=== PATIENT | female | born 1965 | race Two or more races ===

== ENCOUNTER 2019-12-25 10:06 | Outpatient (REF) | payer MEDICAID, SELFPAY | END 2019-12-25 10:07 | disposition home or self-care (01) | LOC: HO.LAB 10:06 | PROVIDERS: PCP Internal Medicine; Visit Provider Internal Medicine | DX: Z20.828 Contact with and (suspected) exposure to other viral communicable diseases (principal) | CPT/HCPCS: C9803; U0003 ==

== ENCOUNTER 2020-01-06 14:27 | Outpatient (REF) | payer MEDICAID, SELFPAY ==
--- NOTE | 2020-01-06 14:34 | MM_ITS ---
EXAMINATION: MM SCREENING DIGITAL BREAST TOMOSYNTHESIS, BILATERAL CLINICAL INFORMATION: Screening. Asymptomatic. The lifetime risk of breast cancer based on the Tyrer-Cuzick Model is 12%. COMPARISON: Mammography: 12/13/2018, 11/14/2017, 10/20/2016, 12/30/2014 TECHNIQUE: Digital breast tomosynthesis is performed in both the craniocaudal and mediolateral oblique views along with computer-aided detection (CAD). Synthesized 2D images are generated from the tomosynthesis. FINDINGS: There are scattered areas of fibroglandular density (ACR BI-RADS breast composition Category b). There are no significant masses, abnormal calcifications, or other abnormalities. There is chronic nodular asymmetry mid outer right breast on CC view similar to prior exams and decreased since 2015. No significant changes. MM/MM tomosynthesis screening BI IMPRESSION: No mammographic evidence of malignancy. ASSESSMENT: BI-RADS 2: Benign RECOMMENDATION: Routine annual mammography screening. This patient's information was entered into a reminder system with a target due date for their next mammogram.
== END 2020-01-06 14:28 | disposition home or self-care (01) ==
LOC: HO.MAMMO 14:27
PROVIDERS: PCP Internal Medicine; Visit Provider Internal Medicine
DX: Z12.31 Encounter for screening mammogram for malignant neoplasm of breast (principal)
CPT/HCPCS: 77063; 77067

== ENCOUNTER 2020-01-21 10:47 | Outpatient (REF) | payer MEDICAID, SELFPAY | END 2020-01-21 10:48 | disposition home or self-care (01) | LOC: HO.LAB 10:47 | PROVIDERS: Visit Provider Internal Medicine | DX: Z20.828 Contact with and (suspected) exposure to other viral communicable diseases (principal) | CPT/HCPCS: C9803; U0003 ==

== ENCOUNTER → 2020-01-29 09:29 | Outpatient (BNVA) | payer MEDICAID, SELFPAY | PROVIDERS: PCP Internal Medicine; Visit Provider Nurse Practitioner | DX: Z76.89 Persons encountering health services in other specified circumstances (principal) ==

== ENCOUNTER → 2020-02-05 15:24 | Outpatient (BNVA) | payer MEDICAID, SELFPAY | PROVIDERS: PCP Internal Medicine; Visit Provider Nurse Practitioner | DX: Z76.89 Persons encountering health services in other specified circumstances (principal) ==

== ENCOUNTER → 2020-03-02 15:07 | Outpatient (BNVA) | payer MEDICAID, SELFPAY | PROVIDERS: PCP Internal Medicine; Visit Provider Nurse Practitioner ==

== ENCOUNTER 2020-05-11 10:03 | Outpatient (REF) | payer MEDICAID, SELFPAY ==
--- NOTE | ~2020-05-11 | XR_ITS ---
EXAMINATION: XR FOOT, RIGHT CLINICAL INFORMATION: Right foot pain. COMPARISON: None TECHNIQUE: AP, lateral, and oblique views of the right foot. FINDINGS: There is no evidence of acute fracture or dislocation of the right foot. There is some irregularity about the superior aspect of the navicular which appears chronic. There are plantar and Achilles calcaneal spurs present. Joint spaces are maintained. XR/XR foot RT min 3V IMPRESSION: Achilles and plantar calcaneal spurs.
== END 2020-05-11 10:04 | disposition home or self-care (01) ==
LOC: HO.XRAY 10:03
PROVIDERS: PCP Internal Medicine; Visit Provider Nurse Practitioner Family
DX: M79.671 Pain in right foot (principal)
CPT/HCPCS: 73630

== ENCOUNTER → 2020-08-30 13:03 | Outpatient (BNVA) | payer MEDICAID, SELFPAY | PROVIDERS: PCP Internal Medicine; Referring Provider Internal Medicine; Visit Provider Nurse Practitioner | DX: K59.04 Chronic idiopathic constipation (principal); K21.9 Gastro-esophageal reflux disease without esophagitis; R10.9 Unspecified abdominal pain; R10.13 Epigastric pain; R10.30 Lower abdominal pain, unspecified | CPT/HCPCS: 99212 ==

== ENCOUNTER 2020-09-01 09:21 | Outpatient (REF) | payer MEDICAID, SELFPAY ==
--- NOTE | ~2020-09-01 | XR_ITS ---
EXAMINATION: XR ABDOMEN WITH DECUBITUS VIEWS CLINICAL INDICATION: Chronic idiopathic constipation. COMPARISON: Most recent abdominal radiographs dated 01/08/2017. TECHNIQUE: Upright and supine views of the abdomen. FINDINGS: Nonobstructive bowel gas pattern. Mild air and stool throughout the colon. No abnormal soft tissue calcification. No acute osseous abnormality. XR/XR abdomen w decubitus IMPRESSION: Nonobstructive bowel gas pattern. Mild air and stool throughout the colon.
[2020-09-01 11:07] LABS: TSH reflex Free T4 1.58 uIU/mL (0.32-4.0)
[2020-09-07 13:56] LABS: Transglutaminase Ab IgG 3 U/mL; Transglutaminase IgA 1 U/mL
[2020-09-07 20:56] LABS: Gliadin Deamidated IgA Ab 6 Units; Gliadin Deamidated IgG Ab 2 Units
== END 2020-09-01 09:22 | disposition home or self-care (01) ==
LOC: HO.LAB 09:21
PROVIDERS: PCP Internal Medicine; Visit Provider Nurse Practitioner
DX: R10.30 Lower abdominal pain, unspecified (principal); K59.04 Chronic idiopathic constipation
CPT/HCPCS: 36415; 74021; 83516; 84443

== ENCOUNTER → 2020-10-01 08:13 | Outpatient (BNVA) | payer MEDICAID, SELFPAY | PROVIDERS: Visit Provider Nurse Practitioner ==

== ENCOUNTER 2020-11-01 17:20 | Emergency (ER) | payer MEDICAID, SELFPAY | END 2020-11-01 20:30 | disposition left against medical advice (07) | PROVIDERS: Emergency Provider Emergency Medicine | DX: G43.909 Migraine, unspecified, not intractable, without status migrainosus (principal) ==

== ENCOUNTER → 2020-11-12 08:32 | Outpatient (BNVA) | payer MEDICAID, SELFPAY | PROVIDERS: Visit Provider Nurse Practitioner ==

== ENCOUNTER → 2021-01-04 10:06 | Outpatient (BNVA) | payer MEDICAID, SELFPAY | PROVIDERS: PCP Internal Medicine; Visit Provider Nurse Practitioner ==

== ENCOUNTER → 2021-01-11 08:11 | Outpatient (BNVA) | payer MEDICAID, SELFPAY | PROVIDERS: PCP Internal Medicine; Referring Provider Internal Medicine; Visit Provider Physician Assistant ==

== ENCOUNTER 2021-01-26 12:31 | Outpatient (REF) | payer MEDICAID, SELFPAY ==
--- NOTE | ~2021-01-26 | MM_ITS ---
EXAMINATION: MM SCREENING DIGITAL BREAST TOMOSYNTHESIS, BILATERAL CLINICAL INFORMATION: Screening. Asymptomatic. The lifetime risk of breast cancer based on the Tyrer-Cuzick Model is 12.6%. COMPARISON: Mammography: January 06, 2020 and studies dating back to June 09, 2013 TECHNIQUE: Digital breast tomosynthesis is performed in both the craniocaudal and mediolateral oblique views along with computer-aided detection (CAD). Synthesized 2D images are generated from the tomosynthesis. FINDINGS: There are scattered areas of fibroglandular density (ACR BI-RADS breast composition Category b). There are no new significant masses, abnormal calcifications, or other abnormalities. Asymmetric density about the mid superior aspect of the right breast again evident and is stable. MM/MM tomosynthesis screening BI IMPRESSION: There are no significant changes from prior study. ASSESSMENT: BI-RADS 2: Benign RECOMMENDATION: Routine annual mammography screening. This patient's information was entered into a reminder system with a target due date for their next mammogram.
== END 2021-01-26 12:32 | disposition home or self-care (01) ==
LOC: HO.MAMMO 12:31
PROVIDERS: Visit Provider Internal Medicine
DX: Z12.31 Encounter for screening mammogram for malignant neoplasm of breast (principal)
CPT/HCPCS: 77063; 77067

== ENCOUNTER 2021-08-24 11:27 | Outpatient (REF) | payer MEDICAID, SELFPAY ==
[2021-08-24 13:22] LABS: Blood Urea Nitrogen 13 mg/dL (9-16); Estimated Glomerular Filt Rate > 60
== END 2021-08-24 11:28 | disposition home or self-care (01) ==
LOC: HO.LAB 11:27
PROVIDERS: PCP Internal Medicine; Visit Provider Advanced Practice Midwife
DX: R19.00 Intra-abdominal and pelvic swelling, mass and lump, unspecified site (principal)
CPT/HCPCS: 36415; 82565; 84520

== ENCOUNTER 2021-08-31 09:17 | Outpatient (REF) | payer MEDICAID, SELFPAY ==
[2021-08-31 10:25] LABS: Blood Urea Nitrogen 10 mg/dL (9-16); Estimated Glomerular Filt Rate > 60
== END 2021-08-31 09:18 | disposition home or self-care (01) ==
LOC: HO.LAB 09:17
PROVIDERS: PCP Internal Medicine; Visit Provider Advanced Practice Midwife
DX: Z01.812 Encounter for preprocedural laboratory examination (principal); R51.9 Headache, unspecified
CPT/HCPCS: 36415; 82565; 84520

== ENCOUNTER 2021-09-15 09:39 | Outpatient (REF) | payer MEDICAID, SELFPAY ==
--- NOTE | ~2021-09-15 | CT_ITS ---
EXAMINATION: CT ABDOMEN AND PELVIS WITH CONTRAST CLINICAL INFORMATION: Intra-abdominal and pelvic swelling, mass or lump. COMPARISON: Portions of a previous CT 04/29/13 TECHNIQUE: Multidetector volumetric images were obtained from the superior aspect of the liver through the pubic symphysis following administration 85 mL of Omnipaque 350 intravenous contrast. Sagittal and coronal reformatted images were obtained on the technologist's workstation. Oral contrast: Yes This CT examination was performed using dose optimization techniques as appropriate, variously including the following: *Automated exposure control *Adjustment of mA and/or kV according to patient size (this includes techniques or standardized protocols for targeted exams where dose is matched to indication/reason for exam; i.e. extremities or head) *Use of iterative reconstruction technique DLP: 632 mGy-cm FINDINGS: LUNG BASES: No suspicious abnormality in the visualized lower chest. There could be a trace sliding-type hiatal hernia. LIVER, GALLBLADDER, AND BILIARY TREE: The liver contour is smooth. No suspicious focal lesion. The gallbladder is contracted. There is no significant biliary dilation. PANCREAS: No suspicious abnormality. SPLEEN: Within normal limits ADRENAL GLANDS: Normal KIDNEYS AND URETERS: There is no dilation of the urinary collecting system on either side. There is a 1.4 cm circumscribed fluid attenuating mass in the periphery of the mid left kidney likely a cyst. This does not require any further evaluation. BLADDER: The bladder is not well-distended. No definite abnormality. Some stranding between the sigmoid colon and the bladder is nonspecific. GASTROINTESTINAL TRACT: The distal colon is thickened and slightly hyperenhancing. There is a focal area of eccentric thickening involving the sigmoid colon (series 7, image 45). There is some minor pericolonic fat stranding in this area and there are a few nonspecific mesenteric lymph nodes. There are sigmoid diverticula. Contrast is present within the proximal colon. The appendix is normal. No significant small bowel dilation. No suspicious abnormality of the stomach. ABDOMINAL WALL: No significant hernia is appreciated. LYMPH NODES: Scattered retroperitoneal and mesenteric lymph nodes are nonspecific. VASCULAR: There is no abdominal aortic aneurysm. The portal vein enhances. There is a normal variant retroaortic left renal vein. There is some dilation of the renal aspect of the main left renal vein as it traverses posterior to the aorta. There are prominent mesenteric vessels associated with the sigmoid colon. PELVIC VISCERA: I suspect previous hysterectomy. No suspicious adnexal mass or collection. OSSEOUS STRUCTURES: No suspicious focal lesion. There is some degenerative change in the lumbar spine CT/CT abdomen pelvis w con IMPRESSION: Abnormal distal colon with wall thickening and luminal narrowing and some pericolonic fat stranding with prominent sigmoid mesenteric vessels and some adjacent nonspecific mesenteric lymph nodes. There are sigmoid diverticula. The pattern could reflect mild diverticulitis without evidence of bowel obstruction or extraluminal gas but is not entirely specific. Other causes of distal colitis cannot be entirely excluded. Fleischner guidelines were followed.
[2021-09-15] MEDS: iohexoL 350 MG/ML 100 ML INFUS..BTL 85 ML IV (12:03)
== END 2021-09-15 09:40 | disposition home or self-care (01) ==
LOC: HO.CT 09:39
PROVIDERS: PCP Internal Medicine; Visit Provider Advanced Practice Midwife
DX: R19.00 Intra-abdominal and pelvic swelling, mass and lump, unspecified site (principal); R10.2 Pelvic and perineal pain; K57.30 Diverticulosis of large intestine without perforation or abscess without bleeding
CPT/HCPCS: 74177; Q9967

== ENCOUNTER → 2021-09-27 15:27 | Outpatient (BNVA) | payer MEDICAID, SELFPAY | PROVIDERS: PCP Internal Medicine; Visit Provider Advanced Practice Midwife | DX: Z71.2 Person consulting for explanation of examination or test findings (principal); R10.9 Unspecified abdominal pain | CPT/HCPCS: 99212 ==

== ENCOUNTER 2021-11-25 19:55 | Outpatient (REF) | payer MEDICAID, SELFPAY ==
--- NOTE | ~2021-11-25 | MR_ITS ---
EXAMINATION: MRI OF THE BRAIN WITHOUT CONTRAST CLINICAL INFORMATION: 56-year-old with headache. COMPARISON: 11/06/2017 MRI. TECHNIQUE: Multiplanar multisequence MR imaging of the brain was done without IV contrast. FINDINGS: BRAIN VOLUME: Within normal limits within the limitations of qualitative assessment. STRUCTURAL: Partially empty sella, which is a unchanged. BRAIN AND MENINGES: DWI sequence demonstrates no restricted diffusion to suggest acute or subacute cerebral ischemia. Gradient refocused imaging demonstrates no abnormal magnetic susceptibility artifact to suggest hemorrhage, hemosiderin staining or abnormal mineralization. Redemonstrated are numerous T2 hyperintense white matter lesions scattered throughout the subcortical and deeper white matter of both cerebral hemispheres, a few of which appear slightly more prominent on the current study bilaterally. The findings are nonspecific and could reflect chronic ischemic microangiopathy and/or migraine-associated vasculopathy with the appropriate clinical history. Other etiologies such as other forms of vasculopathy and vasculitis are not excluded. Remainder of the brain is normal in signal intensity. No extra-axial fluid collections, space-occupying process or mass effect are identified. Redemonstrated are bilateral petrous apex cephaloceles and subarachnoid granulations in the right sphenoid wing similar to the previous exam. VENTRICLES AND SUBARACHNOID SPACES: The ventricular system and subarachnoid spaces are within normal limits without hydrocephalus stable in appearance. ORBITAL STRUCTURES: Previously noted mildly prominent CSF within the optic nerve sheaths bilaterally is again noted on current study but there is no definite protrusion of the optic discs despite slight flattening of the posterior wall of the right scleral margin. In conjunction with the other findings, idiopathic intracranial hypertension would be a consideration but cannot be confirmed with any degree of certainty. VASCULAR: Signal voids are noted in the visualized major intracranial vessels. OSSEOUS STRUCTURES, SINUSES/MASTOIDS, EXTRACRANIAL SOFT TISSUES: Unremarkable. MR/MR head/brain wo con IMPRESSION: 1. Moderately extensive T2 hyperintense white matter lesions in both cerebral hemispheres, a few of which appear slightly more prominent on current study with an otherwise grossly stable appearance. Differential diagnostic considerations include chronic ischemic microangiopathy, migraine-associated vasculopathy, other forms of vasculopathy and vasculitis. 2. No evidence for infarction, hemorrhage, extra-axial fluid collection, space-occupying process, mass effect or hydrocephalus. 3. Some findings as described above which can be associated with idiopathic intracranial hypertension are again noted, but are inconclusive without further clinical assessment.
== END 2021-11-25 19:56 | disposition home or self-care (01) ==
LOC: HO.MRI 19:55
PROVIDERS: Visit Provider Internal Medicine
DX: R51.9 Headache, unspecified (principal); R10.9 Unspecified abdominal pain; K21.9 Gastro-esophageal reflux disease without esophagitis; K59.04 Chronic idiopathic constipation; K57.92 Diverticulitis of intestine, part unspecified, without perforation or abscess without bleeding
CPT/HCPCS: 70551; 99212

== ENCOUNTER → 2021-12-14 08:41 | Outpatient (REF) | payer MEDICAID, SELFPAY ==
--- NOTE | 2021-12-14 08:46 | CA_ITS ---
Transthoracic Echocardiogram Patient (Last, First, Middle): Kacy Merritt, Gender: Female Date of : 1965 Age: 56 Procedure Date: 12/14/2021 Procedure Type: Transthoracic Echocardiogram Location: OP Height: 162.56 cm Weight: 73.03 kg BSA: 1.78 m2 Heart Rate: bpm BP: 122 / 90 mmHg Milk Processing Worker: TO Referring MD: Claribel Grissom MD Network Systems Consultant: Iván Longo MD Symptoms: PALPITATIONS Study Quality: Fair/Contrast ECG Rhythm: Sinus Conclusions: - 1. Normal LV systolic and diastolic function 2. Normal cardiac valvular Doppler 3. Normal RV systolic pressure 4. Mildly dilated ascending aorta at 3.7 cm 5. No gross pericardial effusion Findings Procedure Information Contrast agent, definity, is being given per protocol without apparent complications. Left Ventricle Normal left ventricular size, thickness, and systolic function. The visually estimated ejection fraction is between 55-60%. Spectral Doppler is indicative of a normal filling pattern. Right Ventricle Normal right ventricular cavity size and systolic function. Atria Both atria are normal in size. Interatrial shunt cannot be excluded. Aortic Valve Normal aortic valve structure and function. There is no aortic valve stenosis. There is no aortic valve regurgitation. Mitral Valve Normal mitral valve structure and function. There is mild mitral valve regurgitation. There is no mitral valve stenosis. Pulmonic Valve The pulmonic valve is likely normal. Tricuspid Valve Normal tricuspid valve structure. There is trace tricuspid valve regurgitation. Normal right atrial pressure. There is no evidence of pulmonary hypertension. Great Vessels The pulmonary artery was not well visualized. There is mild dilatation of the ascending aorta measuring 3.70 cm. Venous The inferior vena cava is normal in size and collapses greater than 50% with inspiration. Pericardium/Pleural There is no evidence of pericardial effusion. Prior Study Comparison No prior study available for comparison. Measurements 2D Linear Measurements IVSd: 1.00 0.6-0.9/0.6-1.0 cm LVIDd: 4.40 3.9-5.3/4.2-5.9 cm LVIDd Index: 2.47 2.4-3.2/2.2-3.1 cm/m2 LVIDs: 2.49 2.0-3.6 cm LVPWd: 0.93 0.7-1.1 cm LA Diam: 3.40 2.7-3.8/3.0-4.0 cm LAIDs Index: 1.91 1.5-2.3 cm/m2 LV Mass: 175.32 67-162/88-224 g LV Mass Index: 98.49 43-95/49-115 g/m2 LVOT Diam: 2.10 3.0+(-)1.3 cm 2D Systolic Function EF 4C: 55.90 >55% EF 2C: 60.20 >55% EF BiP: 57.50 >55% Mitral Valve MV Pk E: 0.58 MV PK A: 0.47 MV Decel Time: 228.00 E/A: 1.20 E'Lateral: 9.57 E'Medial: 5.98 E/E' Med: 9.70 E/E' Lat: 6.10 PHT: 67.00 MVA PHT: 3.28 Decel [place]: 2.55 Aortic Valve AoV Pk Clark: 1.08 AoV Mn Clark: 0.81 AoV VTI: 0.25 AoV Pk Grad: 5.00 Aov Mn Grad: 3.00 ANNIA Cont.VTI: 2.00 LVOT LVOT Pk Clark: 0.63 LVOT Mn Clark: 0.42 LVOT VTI: 0.14 LVOT Pk Grad: 2.00 LVOT Mn Grad: 1.00 LVOT Diam: 2.10 LVOT Area: 3.46 Diastolic Function MV Pk E: 0.58 MV Pk A: 0.47 E/A: 1.20 E'Medial: 5.98 E/E' Med: 9.70 E' Laterial: 9.57 E/E' Lat: 6.10 Right Ventricle TAPSE (mm): 21.30 TVS' Clark: 9.25 Tricuspid Valve TR Pk Clark: 1.43 TR Pk Grad: 8.00 RA Press: 3.00 RVSP: 11.00 Great Vessels Aorta Sinus of Valsalva: 3.46 2.0-3.5 cm Ao Asc: 3.70 2.1-3.4 cm Updated in Other Vendor System with Status of Final Iván Longo MD electronically signed on 12/15/2021 9:31:41 AM with status of Final
--- NOTE | 2021-12-14 08:47 | HM_ITS ---
* Total monitoring time 1 day. * Underlying rhythm is sinus. Average rate 61/Min. Range 46 to 94/Min. About 55% the time, rate less than 60/Min. * Very rare supraventricular/ventricular ectopy * No significant pauses or AV blocks. * No diary submitted. MTDD
== END ==
LOC: HO.CARD 08:41
PROVIDERS: Visit Provider Internal Medicine
DX: R00.2 Palpitations (principal)
CPT/HCPCS: 93226; 93242; 93306; Q9957

== ENCOUNTER → 2021-12-16 11:42 | Outpatient (BNVA) | payer MEDICAID, SELFPAY | PROVIDERS: PCP Internal Medicine; Visit Provider Nurse Practitioner | DX: K58.9 Irritable bowel syndrome, unspecified (principal); K57.92 Diverticulitis of intestine, part unspecified, without perforation or abscess without bleeding; R10.9 Unspecified abdominal pain | CPT/HCPCS: 99212 ==

== ENCOUNTER 2022-01-04 08:56 | Outpatient (REF) | payer MEDICAID, SELFPAY ==
[2022-01-04 09:14] LABS: MANUAL DIFF FLAG NO
[2022-01-04 09:21] LABS: Basophils Percent Auto 0.5 % (0-2); Eosinophils Absolute Auto 0.2 X10*3/uL (0.0-0.4); Eosinophils Percent Auto 3.3 % (0-4); Hematocrit 40.5 % (37.0-47.0); Hemoglobin 12.4 g/dl (12.0-16.0); Imm Gran Abs Auto 0.01 X10*3/uL (0.00-0.03); Imm Gran Pct Auto 0.2 % (0.0-0.4); Lymphocytes Absolute Auto 2.6 X10*3/uL (1.2-4.9); Lymphocytes Percent Auto 46.3 % (20-40); Mean Corpuscular HGB Conc 30.6 g/dl (31.0-35.0); Mean Corpuscular Hemoglobin 25.8 pg (27.0-33.0); Mean Corpuscular Volume 84.2 fL (80.0-98.0); Mean Platelet Volume 9.4 fL (9.4-12.3); Monocytes Absolute Auto 0.4 X10*3/uL (0.1-1.2); Monocytes Percent Auto 7.2 % (2-11); Neutrophils Absolute Auto 2.4 x10*3/uL (2.0-8.3); Neutrophils Percent Auto 42.5 % (45-73); Platelet Count 305 X10*3/uL (160-400); Red Blood Count 4.81 X10*6/uL (4.20-5.50); Red Cell Distribution Width 13.8 % (11.0-16.0); White Blood Count 5.7 X10*3/uL (4.8-10.8)
[2022-01-04 09:48] LABS: Alanine Aminotransferase 18 U/L (0-31); Albumin Level 3.9 g/dL (3.5-5.0); Alkaline Phosphatase 65 U/L (39-117); Anion Gap 13 (12-20); Aspartate Amino Transferase 16 U/L (5-31); Bilirubin Total 0.3 mg/dL (0.0-1.0); Blood Urea Nitrogen 11 mg/dL (9-16); Calcium 9.4 mg/dL (8.4-10.2); Carbon Dioxide 25 mmol/L (22-29); Chloride 105 mmol/L (96-108); Estimated Glomerular Filt Rate > 60; Glucose Random 97 mg/dL (60-115); Potassium 3.5 mmol/L (3.3-5.1); Sodium 139 mmol/L (135-145); Total Protein 6.5 g/dL (6.5-8.0)
== END 2022-01-04 08:57 | disposition home or self-care (01) ==
LOC: HO.LAB 08:56
PROVIDERS: PCP Internal Medicine; Visit Provider Nurse Practitioner
DX: R10.9 Unspecified abdominal pain (principal); R19.7 Diarrhea, unspecified
CPT/HCPCS: 36415; 80053; 85025; 99212

== ENCOUNTER 2022-01-09 08:41 | Outpatient (REF) | payer MEDICAID, SELFPAY ==
--- NOTE | ~2022-01-09 | CT_ITS ---
EXAMINATION: CT ABDOMEN AND PELVIS WITH CONTRAST CLINICAL INFORMATION: Diverticulitis COMPARISON: Previous CT of the abdomen and pelvis September 2021 TECHNIQUE: Multidetector volumetric images were obtained from the superior aspect of the liver through the pubic symphysis following administration 85 mL of Omnipaque 350 intravenous contrast. Sagittal and coronal reformatted images were obtained on the technologist's workstation. Oral contrast: Yes This CT examination was performed using dose optimization techniques as appropriate, variously including the following: *Automated exposure control *Adjustment of mA and/or kV according to patient size (this includes techniques or standardized protocols for targeted exams where dose is matched to indication/reason for exam; i.e. extremities or head) *Use of iterative reconstruction technique DLP: 393 mGy-cm FINDINGS: LUNG BASES: The visualized lung bases are unremarkable. LIVER, GALLBLADDER, AND BILIARY TREE: The liver is normal in size, shape, and attenuation. No focal hepatic lesion or biliary ductal dilatation is present. The gallbladder is unremarkable with no evidence of radiopaque gallstones, gallbladder wall thickening, or obvious pericholecystic inflammatory changes. PANCREAS: Unremarkable. SPLEEN: Unremarkable. ADRENAL GLANDS: Unremarkable. KIDNEYS AND URETERS: Small left renal cyst. No imaging follow-up. These are otherwise normal. BLADDER: Not optimally distended and not evaluated. GASTROINTESTINAL TRACT: There is diverticulosis. There is mild wall thickening of the proximal sigmoid colon and stranding of the surrounding fat. There are adjacent prominent vessels or vasa recta. There are small surrounding mesentery lymph nodes. This is similar to September 2021 exam. Diverticulitis and colitis should be considered. No evidence of obstruction, perforation or abscess. Stool throughout the colon questionable for constipation. Small and large bowel is otherwise normal. The appendix is normal. The stomach is normal. ABDOMINAL WALL: No significant hernia is appreciated. LYMPH NODES: Small mesenteric lymph nodes. Small retroperitoneal nodes. VASCULAR: Unremarkable. PELVIC VISCERA: The uterus has been removed. No pelvic mass. OSSEOUS STRUCTURES: Degenerative changes of the spine. CT/CT abdomen pelvis w IV con IMPRESSION: Mild sigmoid diverticulitis or colitis similar to September 2021. Findings be communicated by the [place] work flow audit clerk. Fleischner guidelines were followed.
[2022-01-09] MEDS: iohexoL 350 MG/ML 100 ML INFUS..BTL IV (11:09)
[2022-01-09] MEDS: Barium Sulfate Oral (Mocha) 450 ML ORAL.SUSP 900 ML PO (11:10)
== END 2022-01-09 08:42 | disposition home or self-care (01) ==
LOC: HO.CT 08:41
PROVIDERS: Visit Provider Nurse Practitioner
DX: R10.9 Unspecified abdominal pain (principal); K57.92 Diverticulitis of intestine, part unspecified, without perforation or abscess without bleeding; K58.9 Irritable bowel syndrome, unspecified
CPT/HCPCS: 74177; Q9967

== ENCOUNTER 2022-01-11 14:08 | Inpatient (IN) | payer MEDICAID, SELFPAY ==
--- NOTE | ~2022-01-11 | CT_ITS ---
EXAMINATION: CT ABDOMEN AND PELVIS WITH CONTRAST CLINICAL INFORMATION: Left lower quadrant pain. Question diverticulitis. COMPARISON: CT abdomen and pelvis 09/15/2021 TECHNIQUE: Multidetector volumetric images were obtained from the superior aspect of the liver through the pubic symphysis following administration 85 mL of Omnipaque 350 intravenous contrast. Sagittal and coronal reformatted images were obtained on the technologist's workstation. Oral contrast: No This CT examination was performed using dose optimization techniques as appropriate, variously including the following: *Automated exposure control *Adjustment of mA and/or kV according to patient size (this includes techniques or standardized protocols for targeted exams where dose is matched to indication/reason for exam; i.e. extremities or head) *Use of iterative reconstruction technique DLP: 406 mGy-cm FINDINGS: LUNG BASES: The lung bases are clear. The heart size is normal. LIVER, GALLBLADDER, AND BILIARY TREE: The liver is normal in size, shape, and attenuation. No focal hepatic lesion or biliary ductal dilatation is present. The gallbladder is unremarkable with no evidence of radiopaque gallstones, gallbladder wall thickening, or obvious pericholecystic inflammatory changes. PANCREAS: Unremarkable. SPLEEN: Unremarkable. ADRENAL GLANDS: Unremarkable. KIDNEYS AND URETERS: The kidneys are normal in size, shape, and attenuation. There is no radiopaque renal calculi, hydroureter nephrosis. There is a non-enhancing 1.2 cm cyst of the midpole left kidney. No additional cyst or enhancing solid mass is seen. There is no bilateral perinephric stranding. BLADDER: Unremarkable. GASTROINTESTINAL TRACT: There is diffuse colonic diverticulosis with mild mural thickening involving the sigmoid colon with minimal fat stranding anterior to sigmoid colon. The small bowel loops are of normal caliber. Appendix is uncertain. No free fluid or free air seen. ABDOMINAL WALL: Unremarkable. LYMPH NODES: No abnormal size retroperitoneal lymph nodes or mass are seen. VASCULAR: Unremarkable. PELVIC VISCERA: No evidence of hernia. No abnormal pelvic lymph nodes or mass seen. OSSEOUS STRUCTURES: No aggressive lytic or sclerotic process seen. CT/CT abdomen pelvis w IV con IMPRESSION: 1. Diffuse colonic diverticulosis with mild mural thickening involving the sigmoid colon and minimal fat stranding suggestive of early diverticulitis. There is no free fluid or free air seen. 2.Simple cyst midpole left kidney. Fleischner guidelines were followed.
--- NOTE | 2022-01-11 14:45 | P.HPGS_ITS ---
History of Present Illness History of Present Illness Date of Service: 01/19/22 Chief complaint: Acute diverticulitis Narrative: 56-year-old female referred for diverticulitis of the sigmoid.? She is being followed by GI for a long history of constipation.? She apparently was sent for a CT scan 2 days ago and this had shown mild inflammatory changes in the sigmoid suggestive of acute diverticulitis. She had a colonoscopy in [address] Mendoza.? At that time she was noted to have a small tubular adenoma that was removed.? There was no mention of diverticulosis on her colonoscopy report. She has been followed by GI for long time because of her constipation.? She has been on Linzess.? She describes reflux disease and admits to having a long history of right-sided abdominal pain as well. She has diagnosis of IBS. She says that was never told in the past she had diverticulitis.? She says that her pain on left lower quadrant has been fairly recent.? She was actually started on antibiotics with Bactrim almost a week ago but she feels that her pain on the left lower quadrant has not improved. ? Review of Systems Constitutional: Constitutional: Denies chills and Reports fever(s) Cardiovascular: Cardiovascular: Denies chest pain, Denies dyspnea and Denies dyspnea on exertion Respiratory: Respiratory: Denies cough, Denies dyspnea and Denies dyspnea on exertion Gastrointestinal: Gastrointestinal: Denies hematochezia, Denies change in bowel habits and Reports constipation Genitourinary: Genitourinary: Denies hematuria Musculoskeletal: Musculoskeletal: Denies back pain and Denies limited range of motion Neurologic: Denies focal weakness and Denies convulsions Psychiatric: Psychiatric: Denies depression and Denies mood swings [facility] Past Medical History Medical History (Updated 01/12/22 @ 20:22 by Yane Cruz RN) Acute diverticulitis Constipation GERD (gastroesophageal reflux disease) IBS (irritable bowel syndrome) Sigmoid diverticulitis Family History Family History Father Cancer HTN (hypertension) Mother HTN (hypertension) Hyperthyroidism Migraine headache Maternal Grandmother History of breast cancer Paternal Grandmother History of breast cancer Family/Other Colon cancer Paternal Aunt Ovarian cancer Surgical History Surgical History History of esophagogastroduodenoscopy (EGD) History of intestinal surgery History of partial hysterectomy (~09/2006) Hx of colonoscopy Hx of hemorrhoidectomy Social History Social History Household Members: None Housing: Apartment Do you presently have visiting nurse or other home services: No Alcohol intake: current Alcohol intake frequency: does not drink Patient Tobacco Use Status: Never used Tobacco service: No Current occupational status: disabled Meds Allergies Allergy/AdvReac Type Severity Reaction Status Date / Time Penicillins [PENICILLINS] Allergy Intermediate HIVES/SWELL Verified 01/11/22 15:46 ING bupropion [From Wellbutrin] Allergy hives, Verified 01/11/22 15:46 swelling Home Medications Medication Instructions Recorded Confirmed Last Taken Type galcanezumab-gnlm 120 mg/mL 120 mg subcut Q4W 11/25/21 01/11/22 12/21/21 History subcutaneous pen injector (Emgality Pen) lisinopril 20 mg tablet 20 mg PO DAILY 11/25/21 01/11/22 01/10/22 History metoprolol tartrate 25 mg tablet 25 mg PO BID 11/25/21 01/11/22 01/10/22 History nortriptyline 50 mg capsule 100 mg PO QPM 11/25/21 01/11/22 01/10/22 History sumatriptan succinate 100 mg tablet 100 mg PO DAILY MRX1 migraine 11/25/21 01/11/22 01/11/22 History zolpidem 12.5 mg tablet,extended 12.5 mg PO BEDTIME PRN Insomnia 11/25/21 01/11/22 Unknown History release,multiphase aripiprazole 10 mg tablet 1 tab PO QAM PRN Agitation 01/11/22 01/11/22 Unknown History linaclotide 72 mcg capsule 72 mcg PO QAM PRN Constipation 01/11/22 01/11/22 Unknown History (Linzess) Physical Exam Const: General: comfortable and no acute distress Orientation/consciousness: patient oriented x3 Neck: Neck: Yes no lymphadenopathy Resp: Auscultation: clear to auscultation bilaterally Cardio: Rhythm: regular rhythm GI: Palpation (GI): Soft to palpation, Tenderness to palpation present (GI) ( tender in the left lower quadrant) and no guarding Neuro: General: patient oriented x3 Results Results Labs: Laboratory Results WBC 5.8 X10*3/uL (4.8-10.8) 01/11/22 16:03 RBC 4.69 X10*6/uL (4.20-5.50) 01/11/22 16:03 Hgb 12.4 g/dl (12.0-16.0) 01/11/22 16:03 Hct 38.9 % (37.0-47.0) 01/11/22 16:03 MCV 82.9 fL (80.0-98.0) 01/11/22 16:03 MCH 26.4 pg (27.0-33.0) L 01/11/22 16:03 MCHC 31.9 g/dl (31.0-35.0) 01/11/22 16:03 RDW 13.8 % (11.0-16.0) 01/11/22 16:03 Plt Count 316 X10*3/uL (160-400) 01/11/22 16:03 MPV 9.7 fL (9.4-12.3) 01/11/22 16:03 Immature Gran % (Auto) 0.2 % (0.0-0.4) 01/11/22 16:03 Neut % (Auto) 35.2 % (45-73) L 01/11/22 16:03 Lymph % (Auto) 53.6 % (20-40) H 01/11/22 16:03 [place] % (Auto) 8.4 % (2-11) 01/11/22 16:03 Eos % (Auto) 1.9 % (0-4) 01/11/22 16:03 Baso % (Auto) 0.7 % (0-2) 01/11/22 16:03 Lymph # (Auto) 3.1 X10*3/uL (1.2-4.9) 01/11/22 16:03 [place] # (Auto) 0.5 X10*3/uL (0.1-1.2) 01/11/22 16:03 Eos # (Auto) 0.1 X10*3/uL (0.0-0.4) 01/11/22 16:03 Baso # (Auto) 0.0 X10*3/uL (0.0-0.2) 01/11/22 16:03 Abs Immat Gran (auto) 0.01 X10*3/uL (0.00-0.03) 01/11/22 16:03 Absolute Neuts (auto) 2.1 x10*3/uL (2.0-8.3) 01/11/22 16:03 Absolute Nucleated RBC 0.000 X10*3/uL (0.0-0.012) 01/11/22 16:03 Nucleated RBC % (auto) 0.0 /100WBC (0.0-0.2) 01/11/22 16:03 Sodium 139 mmol/L (135-145) 01/11/22 16:03 Potassium 4.4 mmol/L (3.3-5.1) D 01/11/22 16:03 Chloride 104 mmol/L (96-108) 01/11/22 16:03 Carbon Dioxide 27 mmol/L (22-29) 01/11/22 16:03 Anion Gap 12 (12-20) 01/11/22 16:03 BUN 9 mg/dL (9-16) 01/11/22 16:03 Creatinine 0.78 mg/dL (0.5-1.4) 01/11/22 16:03 Estim Creat Clear Calc 77.2 01/11/22 16:03 Estimated GFR > 60 01/11/22 16:03 Random Glucose 88 mg/dL (60-115) 01/11/22 16:03 Calcium 9.9 mg/dL (8.4-10.2) 01/11/22 16:03 Total Bilirubin 0.4 mg/dL (0.0-1.0) 01/11/22 16:03 Direct Bilirubin < 0.2 mg/dL (0.0-0.5) 01/11/22 16:03 AST 17 U/L (5-31) 01/11/22 16:03 ALT 18 U/L (0-31) 01/11/22 16:03 Alkaline Phosphatase 66 U/L (39-117) 01/11/22 16:03 Total Protein 6.8 g/dL (6.5-8.0) 01/11/22 16:03 Albumin 4.2 g/dL (3.5-5.0) 01/11/22 16:03 Lipase 21 U/L (8-78) 01/11/22 16:03 COVID-19 ([facility]) Negative (Negative) 01/11/22 16:03 COVID-19 Clin Com See Note 01/11/22 16:03 Assessment and Plan (1) Sigmoid diverticulitis: Status: Acute She describes left lower quadrant pain since more than a week ago. She had a CAT scan 2 days ago showing mild inflammatory changes in the sigmoid. She was started on Bactrim last week. However, she says that she has persistent pain and in the office, she felt that her pain and tenderness was worse today. She describes having a fever 2 days ago. I told her that in view of this persistent pain along with her recent fever, it may be best for her to be admitted for IV antibiotics for failure of oral into biotic treatment. She does have a very benign exam. She will be placed on clear liquids in the meantime. She understands the plan and is comfortable with this. Quality Stroke Does the patient have a stroke diagnosis?: No VTE Prior VTE?: No VTE Risk Level:: Medical - moderate - high VTE Device Contraindication: N/A - Device Ordered VTE Drug Contraindication: N/A - Med Ordered Procedures Date of Service Date of Service: 01/11/22
[2022-01-11 15:46] VITALS: BP 131/76; PULSE 67; RESP 18; TEMP 36.6; O2SAT 98; BMI 27.1
--- NOTE | 2022-01-11 15:47 | ED.ABDPAIN ---
HPI - Abdominal Pain General Chief Complaint: Abdominal Pain <Janette Sullivan MD - Last Filed: 01/11/22 15:53> Stated Complaint: Abdominal Pain <Janette Sullivan MD - Last Filed: 01/11/22 15:53> Time Seen by Provider: 01/11/22 16:09 <Janette Sullivan MD - Last Filed: 01/11/22 15:53> Source: patient <RADHA Craven - Last Filed: 01/11/22 17:18> Mode of arrival: ambulatory <RADHA Craven - Last Filed: 01/11/22 17:18> Limitations: no limitations <RADHA Craven Last Filed: 01/11/22 17:18> History of Present Illness HPI narrative: This is a 56-year-old female history of GERD, constipation currently on Linzess, migraines presenting to the emergency department with complaints severe constant stabbing left lower quadrant pain, nausea, vomiting, diarrhea, scant blood in stool times a few weeks progressively worsening over the past few days. Patient tells me that she was told today that she had diverticulitis by surgery it was diagnosed on an outpatient CT scan done a few days ago. Patient tells me she was put on Bactrim for this however little to no relief. She tells me she is barely tolerating anything by mouth. She tells me HTN she eats it really hurts. Patient had a colonoscopy in 2019 where they removed a adenoma. Denies fevers, chills, chest pain, shortness of breath, headache, vision changes, dizziness and weakness. <RADHA Craven - Last Filed: 01/11/22 17:18> Related Data Home Medications: Home Medications Medication Instructions Recorded Confirmed galcanezumab-gnlm 120 mg/mL 120 mg subcut Q4W 11/25/21 01/11/22 subcutaneous pen injector (Emgality Pen) lisinopril 20 mg tablet 20 mg PO DAILY 11/25/21 01/11/22 metoprolol tartrate 25 mg tablet 25 mg PO BID 11/25/21 01/11/22 nortriptyline 50 mg capsule 100 mg PO QPM 11/25/21 01/11/22 sumatriptan succinate 100 mg tablet 0 mg PO migraine 10/21/22 12/07/22 zolpidem 12.5 mg tablet,extended 12.5 mg PO BEDTIME PRN 11/25/21 01/11/22 release,multiphase Previous Rx's Medication Instructions Recorded pantoprazole 40 mg tablet,delayed 40 mg PO DAILY #30 tabs 10/11/21 release linaclotide 72 mcg capsule 72 mcg PO QAM #30 caps 12/12/21 (Linzess) hyoscyamine sulfate 0.125 mg 0.25 mg sublingual QID #240 tabs 12/16/21 sublingual tablet (Levsin/SL) rifaximin 550 mg tablet (Xifaxan) 550 mg PO BID 10 days #20 tabs 12/16/21 dicyclomine 20 mg tablet 40 mg PO QID 30 days #240 tabs 01/04/22 hydrocortisone 2.5 % topical cream 1 appl [place] BID PRN hemorrhoids #30 01/04/22 with perineal applicator grams (Proctosol HC) sulfamethoxazole 800 1 tab PO BID 10 days #20 tabs 01/04/22 mg-trimethoprim 160 mg tablet (Bactrim DS) <Janette Sullivan MD - Last Filed: 01/11/22 15:53> Allergies/Adverse Reactions: Allergies Allergy/AdvReac Type Severity Reaction Status Date / Time Penicillins [PENICILLINS] Allergy Intermediate HIVES/SWELL Verified 01/11/22 15:46 ING bupropion [From Wellbutrin] Allergy hives, Verified 01/11/22 15:46 swelling <Janette Sullivan MD - Last Filed: 01/11/22 15:53> Review of Systems Review of Systems Constitutional : No Weight loss, No Fever, No Chills, No Fatigue, No Malaise ENT/Mouth : No sore throat, No Rhinorrhea Eyes: No Eye Pain, No Swelling, No Redness Cardiovascular : No Chest Pain, No SOB, No Dyspnea on Exertion, No Orthopnea, No Edema, No Palpitations Respiratory : No Cough, No Sputum, No Wheezing Gastrointestinal : + Nausea, + Vomiting, + Diarrhea, No Constipation, + abdominal Pain, No Hematochezia, No Melena Genitourinary : No Dysuria, No Urinary Frequency, No Hematuria, Musculoskeletal : No joint pain, No Myalgias, No Joint Swelling Skin : No Skin Lesions, No rash Neuro : No Weakness, No Numbness, No Dizziness, No Headache Psych : No Anxiety/Panic, No Depression All other systems reviewed and are negative <RADHA Craven - Last Filed: 01/11/22 17:18> Yes all other systems are reviewed and are negative <RADHA Craven - Last Filed: 01/11/22 17:18> [facility] Past Medical History Attestation statement: The following information was validated with the patient. <RADHA Craven - Last Filed: 01/11/22 17:18> Source: old records reviewed and nursing notes reviewed <RADHA Craven - Last Filed: 01/11/22 17:18> Medical History: Medical History (Updated 01/11/22 @ 16:43 by Fritz Veliz MD) Acute diverticulitis Constipation GERD (gastroesophageal reflux disease) IBS (irritable bowel syndrome) Sigmoid diverticulitis <Janette Sullivan MD - Last Filed: 01/11/22 15:53> Surgical History: Surgical History History of esophagogastroduodenoscopy (EGD) History of intestinal surgery History of partial hysterectomy (~09/2006) Hx of colonoscopy Hx of hemorrhoidectomy <Janette Sullivan MD - Last Filed: 01/11/22 15:53> Family History Family History: Family History Father Cancer HTN (hypertension) Mother HTN (hypertension) Hyperthyroidism Migraine headache Maternal Grandmother History of breast cancer Paternal Grandmother History of breast cancer Family/Other Colon cancer Paternal Aunt Ovarian cancer <Janette Sullivan MD - Last Filed: 01/11/22 15:53> Social History Social History: Social History Household Members: None Alcohol intake: current Alcohol intake frequency: does not drink Patient Tobacco Use Status: Never used Tobacco Advance Directives: No Advance Directives Information Provided: Yes <Janette Sullivan MD - Last Filed: 01/11/22 15:53> Physical Exam ED Vital Signs: Vital Signs - 24 hr 01/11/22 15:46 Temperature 97.9 F Pulse Rate 67 Respiratory Rate 18 Blood Pressure 131/76 Pulse Oximetry 98 Oxygen Delivery Method Room Air BMI result Body Mass Index 27.1 <Janette Sullivan MD - Last Filed: 01/11/22 15:53> Vital Signs - 24 hr 01/11/22 15:46 Temperature 97.9 F Pulse Rate 67 Respiratory Rate 18 Blood Pressure 131/76 Pulse Oximetry 98 Oxygen Delivery Method Room Air BMI result Body Mass Index 27.1 vss <RADHA Craven - Last Filed: 01/11/22 17:18> Appearance: Alert.? Oriented X3.? No acute distress.? Head: Normocephalic, atraumatic, no step-offs or deformities Eyes: Pupils equal, round and reactive to light.? Neck: Normal inspection.? Neck supple.? CVS: Normal heart rate and rhythm.? Pulses normal.? Respiratory: No respiratory distress.? Breath sounds normal.? Abdomen: Soft and nontender.? Skin: Skin warm and dry.? Normal skin color.? Normal skin turgor.? Extremities: No lower extremity edema.? No calf ttp. 5/5 strength to bilateral upper and lower extremities Neuro: Oriented X 3.? No motor deficit.? No sensory deficit. CN 2-12 intact <RADHA Craven - Last Filed: 01/11/22 17:18> Course Course Course Narrative: rme 56-year-old female with a history of diverticulitis in the past. Had a CT scan of the abdomen done [address] was positive for diverticulitis mild. Patient is on Bactrim. Denies any fever chills continued to have pain in the left lower quadrant. Patient was seen by Dr. Veliz in the mornings. Sent to the ED for further admission and IV antibiotics. Rocephin and Flagyl ordered. Labs ordered. Patient placed back in the waiting area <Janette Sullivan MD - Last Filed: 01/11/22 15:53> Reevaluation(s) Reevaluation #1: CBC appears to be around patient's baseline with no acute findings, chemistry with no acute electrolyte abnormalities requiring intervention. Lactic pending. Patient given antibiotics, hydration. Dr. Veliz from general surgery evaluated patient and will admit to his service <RADHA Craven - Last Filed: 01/11/22 17:18> Time: 17:17 <RADHA Craven - Last Filed: 01/11/22 17:18> Medical Decision Making Medical Decision Making MDM Narrative: 1630 56 year old female presents to the ED w/ LLQ pain, nausea, vomiting, worsening over the past few day PE LLQ tenderness Likely diverticulitis, unlikely acute abdomen. Plan at this time labs, blood cultures, lactic, antibiotics. Patient recently had a CT scan done, no need for repeat CT scan. According to report obtained from 1 of my attending's, surgery did not want a CT scan either. <RADHA Craven - Last Filed: 01/11/22 17:18> Critical Care Time Critical Care Time Critical Care Time: No <RADHA Craven - Last Filed: 01/11/22 17:18> Discharge Plan Discharge Patient Disposition: Admitted As Inpatient <Janette Sullivan MD - Last Filed: 01/11/22 15:53> Prescriptions: No Action pantoprazole 40 mg tablet,delayed release (DR/EC) 40 mg PO DAILY Qty: 30 6RF Linzess 72 mcg capsule 72 mcg PO QAM Qty: 30 0RF Hold Instructions: Doctor's Order lisinopril 20 mg tablet 20 mg PO DAILY zolpidem 12.5 mg tablet,ext release multiphase 12.5 mg PO BEDTIME PRN sumatriptan succinate 100 mg tablet 0 mg PO nortriptyline 50 mg capsule 100 mg PO QPM Emgality Pen 120 mg/mL pen injector 120 mg subcut Q4W metoprolol tartrate 25 mg tablet 25 mg PO BID hyoscyamine sulfate [Levsin/SL] 0.125 mg tablet, sublingual 0.25 mg sublingual QID Qty: 240 3RF Hold Instructions: pt never received ? insurance Xifaxan 550 mg tablet 550 mg PO BID 10 Days Qty: 20 0RF Hold Instructions: pt never received ? insurance sulfamethoxazole-trimethoprim [Bactrim DS] 800-160 mg tablet 1 tab PO BID 10 Days Qty: 20 0RF hydrocortisone [Proctosol HC] 2.5 % cream with perineal applicator 1 appl [place] BID PRN (Reason: hemorrhoids) Qty: 30 0RF dicyclomine 20 mg tablet 40 mg PO QID 30 Days Qty: 240 3RF <Janette Sullivan MD - Last Filed: 01/11/22 15:53>
[2022-01-11 16:17] LABS: MANUAL DIFF FLAG NO
[2022-01-11 16:21] LABS: Basophils Percent Auto 0.7 % (0-2); Eosinophils Absolute Auto 0.1 X10*3/uL (0.0-0.4); Eosinophils Percent Auto 1.9 % (0-4); Hematocrit 38.9 % (37.0-47.0); Hemoglobin 12.4 g/dl (12.0-16.0); Imm Gran Abs Auto 0.01 X10*3/uL (0.00-0.03); Imm Gran Pct Auto 0.2 % (0.0-0.4); Lymphocytes Absolute Auto 3.1 X10*3/uL (1.2-4.9); Lymphocytes Percent Auto 53.6 % (20-40); Mean Corpuscular HGB Conc 31.9 g/dl (31.0-35.0); Mean Corpuscular Hemoglobin 26.4 pg (27.0-33.0); Mean Corpuscular Volume 82.9 fL (80.0-98.0); Mean Platelet Volume 9.7 fL (9.4-12.3); Monocytes Absolute Auto 0.5 X10*3/uL (0.1-1.2); Monocytes Percent Auto 8.4 % (2-11); Neutrophils Absolute Auto 2.1 x10*3/uL (2.0-8.3); Neutrophils Percent Auto 35.2 % (45-73); Platelet Count 316 X10*3/uL (160-400); Red Blood Count 4.69 X10*6/uL (4.20-5.50); Red Cell Distribution Width 13.8 % (11.0-16.0); White Blood Count 5.8 X10*3/uL (4.8-10.8)
[2022-01-11 16:38] LABS: Alanine Aminotransferase 18 U/L (0-31); Albumin Level 4.2 g/dL (3.5-5.0); Alkaline Phosphatase 66 U/L (39-117); Anion Gap 12 (12-20); Aspartate Amino Transferase 17 U/L (5-31); Bilirubin Direct < 0.2 mg/dL (0.0-0.5); Bilirubin Total 0.4 mg/dL (0.0-1.0); Blood Urea Nitrogen 9 mg/dL (9-16); Calcium 9.9 mg/dL (8.4-10.2); Carbon Dioxide 27 mmol/L (22-29); Chloride 104 mmol/L (96-108); Creatinine Clr Calc Pharmacy 77.2; Estimated Glomerular Filt Rate > 60; Glucose Random 88 mg/dL (60-115); Lipase 21 U/L (8-78); Potassium 4.4 mmol/L (3.3-5.1); Sodium 139 mmol/L (135-145); Total Protein 6.8 g/dL (6.5-8.0)
[2022-01-11 16:39] LABS: COVID-19 Test Negative (Negative); IDNOW Serial# 16C4AD1C
[2022-01-11] MEDS: 0.9 % Sodium Chloride 1,000 ML 999 ML IV (17:16)
[2022-01-11 17:30] LABS: Lactic Acid 1.1 mmol/L (0.5-2.0)
[2022-01-11 17:40] VITALS: BP 117/49; PULSE 62; RESP 13; TEMP 36.7; O2SAT 95
[2022-01-11] MEDS: Heparin Sodium,Porcine 5,000 UNIT/ML VIAL 5000 UNIT SUBCUT (18:28)
[2022-01-11] MEDS: Lactated Ringers 1,000 ML 80 ML IVCONT (18:28)
[2022-01-11] MEDS: metroNIDAZOLE/NS 500 MG/100 ML PIGGYBACK 100 MG IV (18:28)
[2022-01-11 19:42] VITALS: BP 139/66; PULSE 72; RESP 18; TEMP 37; O2SAT 100
[2022-01-11 20:46] LABS: Appearance Urine Clear; Color Urine Yellow; Glucose Urine UA Negative (Negative); Leukocyte Esterase Urine Negative (Negative); Nitrite Urine Negative (Negative); PH 5.5 (5.0-9.0); Urine Blood Negative (Negative); Urine Ketones Negative (Negative); Urine Protein Negative (Neg-Trace)
[2022-01-11 20:51] LABS: Bacteria Urine None Seen (None Seen); Hyaline Casts Urine 0-2 /LPF (0-2); RBC Urine 0-2 /HPF (0-2); Squamous Epithelial Cell Urine 0-2 /HPF (0-2); WBC Urine 0-5 /HPF (0-5)
[2022-01-11] MEDS: SUMAtriptan succinate 100 MG TABLET PO (23:50)
[2022-01-12] MEDS: Morphine Sulfate 2 MG/ML CARTRIDGE IVPUSH (02:25)
[2022-01-12] MEDS: metroNIDAZOLE/NS 500 MG/100 ML PIGGYBACK 100 MG IV ×3 (03:07→20:43)
[2022-01-12 03:39] VITALS: BP 138/63; PULSE 56; RESP 16; TEMP 37.1; O2SAT 99
[2022-01-12 05:08] VITALS: RESP 18
[2022-01-12] MEDS: HYDROmorphone HCl 0.5 MG/0.5 ML SYRINGE IVPUSH (05:08)
[2022-01-12] MEDS: Heparin Sodium,Porcine 5,000 UNIT/ML VIAL 5000 UNIT SUBCUT ×2 (05:09→16:17)
[2022-01-12 05:57] VITALS: BP 138/69; PULSE 53; RESP 16; O2SAT 100
[2022-01-12] MEDS: Omeprazole 40 MG CAPSULE.DR PO (06:14)
--- NOTE | 2022-01-12 07:45 | P.PNGS_ITS ---
Subjective Subjective Date of Service: 01/17/22 Interval history: says she still has lower quadrant pain she does not think this is better than yesterday some nausea last night Physical Exam Vital Signs: Vital Signs: Last Vital Signs Temp 98.7 F 01/12/22 03:39 Pulse 53 01/12/22 05:57 Resp 16 01/12/22 05:57 BP 138/69 01/12/22 05:57 Pulse Ox 100 01/12/22 05:57 O2 Del Method 01/12/22 05:57 BMI result Body Mass Index 27.1 Const: Other: looks well otherwise General: no acute distress Resp: Effort & Inspection: normal respiratory effort Cardio: Rate: regular rate GI: Other: soft but tender in the left lower quadrant Inspection: No distended Palp ation (GI): no guarding Objective Data Active Medications Heparin Sodium (Porcine) (Heparin Sodium,Porcine 5,000 Unit/Ml Vial) 5,000 unit SUBCUT Q12H ON LICENSE OF [facility] Last Admin: 01/12/22 05:09 Dose: 5,000 unit Documented By: JACIEL Lactated Ringer's (Lr) 1,000 mls @ 80 mls/hr IVCONT .[id number] ON LICENSE OF [facility] Last Admin: 01/11/22 18:28 Dose: 80 mls/hr Documented By: JOHN Levofloxacin (Levaquin) 750 mg in 150 mls @ 100 mls/hr IV DAILY ON LICENSE OF [facility] Metronidazole (Flagyl) 500 mg in 100 mls @ 100 mls/hr IV Q8H ON LICENSE OF [facility] Last Infusion: 01/12/22 04:36 Dose: 0 mls/hr Documented By: AYLA Promethazine HCl 12.5 mg/ (Sodium Chloride) 50.5 mls @ 202 mls/hr IV Q6H PRN PRN Reason: Nausea Last Infusion: 01/12/22 01:55 Dose: 0 mls/hr Documented By: JACIEL Lisinopril (Lisinopril 20 Mg Tablet) 20 mg PO DAILY ON LICENSE OF [facility]; Protocol Metoprolol Succinate (Metoprolol Succinate Er 25 Mg Tab.Er.24h) 25 mg PO DAILY ON LICENSE OF [facility]; Protocol Morphine Sulfate (Morphine Sulfate 2 Mg/Ml Cartridge) 2 mg IVPUSH Q3H PRN; Protocol PRN Reason: pain, severe Last Admin: 01/12/22 02:25 Dose: 2 mg Documented By: JACIEL Nortriptyline HCl (Nortriptyline Hcl 25 Mg Capsule) 50 mg PO DAILY ON LICENSE OF [facility] Omeprazole (Omeprazole 40 Mg Capsule.Dr) 40 mg PO DAILY@0630 ON LICENSE OF [facility] Last Admin: 01/12/22 06:14 Dose: 40 mg Documented By: JACIEL Pharmacy Consult (Consult Rx Perform Med Rec) 1 each MISCELLANE ONCE PRN PRN Reason: Consult order Sodium Chloride (0.9 % Sodium Chloride Flush 3 Ml Syringe) 3 ml IVFLUSH QSHIFT ON LICENSE OF [facility] Last Admin: 01/11/22 23:39 Dose: Not Given Documented By: AYLA Non-Admin Reason: IV Running Sumatriptan Succinate (Sumatriptan Succinate 100 Mg Tablet) 100 mg PO DAILY PRN PRN Reason: migraine Last Admin: 01/11/22 23:50 Dose: 100 mg Documented By: JACIEL Labs CBC & Chem 7: 01/15/22 05:52 01/15/22 05:52 Labs: Laboratory Results - last 24 hr 01/11/22 01/11/22 01/11/22 16:03 16:03 16:03 MCV 82.9 MCH 26.4 L MCHC 31.9 RDW 13.8 Plt Count 316 MPV 9.7 Immature Gran % (Auto) 0.2 Neut % (Auto) 35.2 L Lymph % (Auto) 53.6 H [place] % (Auto) 8.4 Eos % (Auto) 1.9 Baso % (Auto) 0.7 Lymph # (Auto) 3.1 [place] # (Auto) 0.5 Eos # (Auto) 0.1 Baso # (Auto) 0.0 Abs Immat Gran (auto) 0.01 Absolute Neuts (auto) 2.1 Absolute Nucleated RBC 0.000 Nucleated RBC % (auto) 0.0 Anion Gap 12 Estim Creat Clear Calc 77.2 Estimated GFR > 60 Random Glucose 88 Lactic Acid Calcium 9.9 Total Bilirubin 0.4 Direct Bilirubin < 0.2 AST 17 ALT 18 Alkaline Phosphatase 66 Total Protein 6.8 Albumin 4.2 Lipase 21 Urine Color Urine Appearance Urine pH Ur Specific [place] Urine Protein Urine Glucose (UA) Urine Ketones Urine Blood Urine Nitrite Ur Leukocyte Esterase Urine RBC Urine WBC Ur Squamous Epith Cells Urine Bacteria Hyaline Casts COVID-19 ([facility]) Negative COVID-19 Clin Com See Note 01/11/22 01/11/22 17:13 20:27 MCV MCH MCHC RDW Plt Count MPV Immature Gran % (Auto) Neut % (Auto) Lymph % (Auto) [place] % (Auto) Eos % (Auto) Baso % (Auto) Lymph # (Auto) [place] # (Auto) Eos # (Auto) Baso # (Auto) Abs Immat Gran (auto) Absolute Neuts (auto) Absolute Nucleated RBC Nucleated RBC % (auto) Anion Gap Estim Creat Clear Calc Estimated GFR Random Glucose Lactic Acid 1.1 Calcium Total Bilirubin Direct Bilirubin AST ALT Alkaline Phosphatase Total Protein Albumin Lipase Urine Color Yellow Urine Appearance Clear Urine pH 5.5 Ur Specific [place] 1.010 Urine Protein Negative Urine Glucose (UA) Negative Urine Ketones Negative Urine Blood Negative Urine Nitrite Negative Ur Leukocyte Esterase Negative Urine RBC 0-2 Urine WBC 0-5 Ur Squamous Epith Cells 0-2 Urine Bacteria None Seen Hyaline Casts 0-2 COVID-19 ([facility]) COVID-19 Clin Com Procedures Date of Service Date of Service: 01/12/22 Progress Note: A&P Assessment and plan (1) Sigmoid diverticulitis: Status: Acute Assessment and Plan: oil process stillman on left lower quadrant repeat CT scan keep on clear liquids on Levaquin and Flagyl - has penicillin allergies looks well otherwise and toxic looking she understands plan Time Spent With Patient Time: Total time spent is greater than 50% in coordination of care (as documented) at patient's floor/unit and/or counseling patient: Quality Stroke Does the patient have a stroke diagnosis?: No VTE Prior VTE?: No VTE Risk Level:: Medical - moderate - high VTE Device Contraindication: N/A - Device Ordered VTE Drug Contraindication: N/A - Med Ordered
[2022-01-12] MEDS: iohexoL 350 MG/ML 100 ML INFUS..BTL IV (09:36)
[2022-01-12] MEDS: levoFLOXacin/D5W 750 MG/150 ML PIGGYBACK 100 MG IV (10:02)
[2022-01-12] MEDS: Nortriptyline HCl 25 MG CAPSULE 50 MG PO (10:02)
[2022-01-12] MEDS: lisinopriL 20 MG TABLET PO (10:02)
[2022-01-12] MEDS: Metoprolol Succinate ER 25 MG TAB.ER.24H PO (10:02)
[2022-01-12 11:08] VITALS: BP 114/75; PULSE 62; RESP 18; TEMP 36.6; O2SAT 96
--- NOTE | 2022-01-12 14:45 | PM.EVENT ---
Event Note Date of Service: 01/12/22 Event Note: CT reviewed- no new changes compared to use mild inflammatory changes in the sigmoid patient says that she ball thread machine tender abdomen soft, tender on the left lower quadrant with no guarding or rebound continue antibiotics pain management Clear liquid diet repeat labs in a.m.
[2022-01-12] MEDS: Lactated Ringers 1,000 ML 80 ML IVCONT (16:17)
[2022-01-12] MEDS: 0.9 % Sodium Chloride Flush 3 ML SYRINGE IVFLUSH (16:21)
--- NOTE | 2022-01-12 16:26 | MHC.CM.PN ---
CM ATTEMPTED TO MEET WITH PT WHO WAS SLEEPING CM TO REVISIT
--- NOTE | 2022-01-12 17:19 | PC.NURSE ---
Pt AxOx3 greek speaking, denies sob,chest pain, headache or dizziness.Pt receive LR @80ml/hr.Pt has access on Right AC 20. Pt will be transfer to be admitted at [address] [place] [address] surg unit.
[2022-01-12 18:49] VITALS: BP 135/69; PULSE 67; RESP 18; TEMP 36.1; O2SAT 100
--- NOTE | 2022-01-12 20:20 | PC.NURSE ---
This RN personally did not admit pt upstairs but is transferring inpatient in the computer system.
[2022-01-12] MEDS: Acetaminophen 325 MG TABLET 650 MG PO (20:42)
[2022-01-12] MEDS: Acetaminophen 1,000 MG/100 ML PIGGYBACK 400 MG IV (22:51)
[2022-01-12 23:22] VITALS: BP 124/59; PULSE 61; RESP 16; TEMP 36.1; O2SAT 96
[2022-01-13] MEDS: metroNIDAZOLE/NS 500 MG/100 ML PIGGYBACK 100 MG IV ×3 (02:55→18:58)
[2022-01-13 03:08] VITALS: BP 116/56; PULSE 56; RESP 14; TEMP 36; O2SAT 96
--- NOTE | 2022-01-13 03:47 | PC.NURSE ---
Pt seen on bed still c/o LLQ pain 11/14 unrelieved with po Tylenol prn, pt refused Morphine IV as it makes her dizzy and no relieve from pain, Dr. Romero was notified, ordered scheduled Tylenol IV and prn Dilaudid, pt was educated pain management and complied, pt wentto sleep after Tylenol IV.
[2022-01-13] MEDS: Acetaminophen 1,000 MG/100 ML PIGGYBACK 400 MG IV ×4 (05:01→22:25)
[2022-01-13] MEDS: Heparin Sodium,Porcine 5,000 UNIT/ML VIAL 5000 UNIT SUBCUT ×2 (05:04→16:35)
[2022-01-13] MEDS: Omeprazole 40 MG CAPSULE.DR PO (05:55)
[2022-01-13] MEDS: Lactated Ringers 1,000 ML 80 ML IVCONT (05:55)
[2022-01-13 06:41] LABS: Hematocrit 33.7 % (37.0-47.0); Hemoglobin 10.4 g/dl (12.0-16.0); Mean Corpuscular HGB Conc 30.9 g/dl (31.0-35.0); Mean Corpuscular Hemoglobin 26.1 pg (27.0-33.0); Mean Corpuscular Volume 84.7 fL (80.0-98.0); Mean Platelet Volume 10.3 fL (9.4-12.3); Platelet Count 266 X10*3/uL (160-400); Red Blood Count 3.98 X10*6/uL (4.20-5.50); Red Cell Distribution Width 13.9 % (11.0-16.0); White Blood Count 3.9 X10*3/uL (4.8-10.8)
[2022-01-13 07:39] LABS: Anion Gap 10 (12-20); Blood Urea Nitrogen 4 mg/dL (9-16); Carbon Dioxide 28 mmol/L (22-29); Chloride 106 mmol/L (96-108); Creatinine Clr Calc Pharmacy 78.2; Estimated Glomerular Filt Rate > 60; Glucose Random 86 mg/dL (60-115); Potassium 4.1 mmol/L (3.3-5.1); Sodium 140 mmol/L (135-145)
[2022-01-13 07:45] LABS: Calcium 8.9 mg/dL (8.4-10.2)
--- NOTE | 2022-01-13 08:56 | PM.PNGS ---
Subjective Subjective Date of Service: 01/13/22 <Leana Karimi PA-C - Last Filed: 01/13/22 09:07> 01/13/22 <Fernando Lim MD - Last Filed: 01/13/22 15:23> Interval history: Continues with pain on the left side. She does not think it has improved much since admission. Pain medication has not been relieving the pain despite change of medication. She reports this has been going on for months and has required multiple courses of PO antibiotics without any significant relief. She has never been admitted for IV antibiotics. Last colonoscopy 2020 which did not demonstrate diverticulosis, had one tubular adenoma. <Leana Karimi PA-C - Last Filed: 01/13/22 09:07> Physical Exam Vital Signs: Vital Signs: Last Vital Signs Temp 96.8 F 01/13/22 03:08 Pulse 56 01/13/22 03:08 Resp 14 01/13/22 03:08 BP 116/56 L 01/13/22 03:08 Pulse Ox 96 01/13/22 03:08 O2 Del Method 01/13/22 03:08 BMI result Body Mass Index 27.1 <Leana Karimi PA-C - Last Filed: 01/13/22 09:07> Const: General: comfortable, no acute distress and alert <TERELL Cowart Last Filed: 01/13/22 09:07> Orientation/consciousness: patient oriented x3 <Leana Karimi PA-C - Last Filed: 01/13/22 09:07> Resp: Effort & Inspection: normal respiratory effort <Leana Karimi PA-C - Last Filed: 01/13/22 09:07> Cardio: Rate: regular rate <TERELL Cowart Last Filed: 01/13/22 09:07> GI: Inspection: No distended <TERELL Cowart Last Filed: 01/13/22 09:07> Palpation (GI): Soft to palpation, Tenderness to palpation present (GI) (mild diffuse, moderate LLQ/suprapubic with rebound), no guarding and not rigid <TERELL Cowart Last Filed: 01/13/22 09:07> Percussion: Yes normal to percussion <Leana Karimi PA-C - Last Filed: 01/13/22 09:07> Skin: General skin exam: no rashes or lesions noted <TERELL Cowart Last Filed: 01/13/22 09:07> Neuro: General: patient oriented x3 <TERELL Cowart Last Filed: 01/13/22 09:07> Extrem: General: Yes no clubbing, cyanosis or edema <TERELL Cowart Last Filed: 01/13/22 09:07> Objective Data Active Medications Heparin Sodium (Porcine) (Heparin Sodium,Porcine 5,000 Unit/Ml Vial) 5,000 unit SUBCUT Q12H [facility] Last Admin: 01/13/22 05:04 Dose: 5,000 unit Documented By: YEISONILNell Hydromorphone HCl (Hydromorphone Hcl 0.5 Mg/0.5 Ml Syringe) 0.5 mg IVPUSH Q3H PRN; Protocol PRN Reason: Pain, Severe (Pain Scale 7-10) Lactated Ringer's (Lr) 1,000 mls @ 80 mls/hr IVCONT .[id number] [facility] Last Admin: 01/13/22 05:55 Dose: 80 mls/hr Documented By: HOMERO Levofloxacin (Levaquin) 750 mg in 150 mls @ 100 mls/hr IV DAILY [facility] Last Infusion: 01/12/22 11:55 Dose: 0 mls/hr Documented By: MARI Metronidazole (Flagyl) 500 mg in 100 mls @ 100 mls/hr IV Q8H [facility] Last Infusion: 01/13/22 04:02 Dose: 0 mls/hr Documented By: HOMERO Promethazine HCl 12.5 mg/ (Sodium Chloride) 50.5 mls @ 202 mls/hr IV Q6H PRN PRN Reason: Nausea Last Infusion: 01/12/22 01:55 Dose: 0 mls/hr Documented By: JACIEL Acetaminophen (Ofirmev) 1,000 mg in 100 mls @ 400 mls/hr IV Q6H [facility] Last Infusion: 01/13/22 05:43 Dose: 0 mls/hr Documented By: HOMERO Lisinopril (Lisinopril 20 Mg Tablet) 20 mg PO DAILY [facility]; Protocol Last Admin: 01/12/22 10:02 Dose: 20 mg Documented By: MARI Metoprolol Succinate (Metoprolol Succinate Er 25 Mg Tab.Er.24h) 25 mg PO DAILY [facility]; Protocol Last Admin: 01/12/22 10:02 Dose: 25 mg Documented By: MARI Nortriptyline HCl (Nortriptyline Hcl 25 Mg Capsule) 50 mg PO DAILY [facility] Last Admin: 01/12/22 10:02 Dose: 50 mg Documented By: MARI Omeprazole (Omeprazole 40 Mg Capsule.Dr) 40 mg PO DAILY@0630 [facility] Last Admin: 01/13/22 05:55 Dose: 40 mg Documented By: HOMERO Pharmacy Consult (Consult Rx Perform Med Rec) 1 each MISCELLANE ONCE PRN PRN Reason: Consult order Sodium Chloride (0.9 % Sodium Chloride Flush 3 Ml Syringe) 3 ml IVFLUSH QSHIFT [facility] Last Admin: 01/13/22 00:21 Dose: Not Given Documented By: HOMERO Non-Admin Reason: IV Running Sumatriptan Succinate (Sumatriptan Succinate 100 Mg Tablet) 100 mg PO DAILY PRN PRN Reason: migraine Last Admin: 01/11/22 23:50 Dose: 100 mg Documented By: JACIEL <Leana Karimi PA-C - Last Filed: 01/13/22 09:07> Labs CBC & Chem 7: : 01/13/22 05:57 01/13/22 05:56 <Leana Karimi PA-C - Last Filed: 01/13/22 09:07> Labs: Laboratory Results - last 24 hr 01/13/22 01/13/22 05:56 05:57 MCV 84.7 MCH 26.1 L MCHC 30.9 L RDW 13.9 Plt Count 266 MPV 10.3 Absolute Nucleated RBC 0.000 Nucleated RBC % (auto) 0.0 Anion Gap 10 L Estim Creat Clear Calc 78.2 Estimated GFR > 60 Random Glucose 86 Calcium 8.9 D <Leana Karimi PA-C - Last Filed: 01/13/22 09:07> Microbiology Microbiology Results: Microbiology 01/11/22 18:23 Blood Culture - Preliminary Blood - Venous No growth after 24 hours. 01/11/22 17:13 Blood Culture - Preliminary Blood - Venous No growth after 24 hours. <Leana Karimi PA-C - Last Filed: 01/13/22 09:07> Procedures Date of Service Date of Service: 01/13/22 <Leana Karimi PA-C - Last Filed: 01/13/22 09:07> Progress Note: A&P Assessment and plan (1) Sigmoid diverticulitis: Status: Acute <Leana Karimi PA-C - Last Filed: 01/13/22 09:07> Assessment and Plan: 56 year old female admitted with diverticulitis. She reports ongoing LLQ pain not significantly improved. VSS. Abd exam with moderate LLQ/suprapubic tenderness and rebound, abd very soft. Repeat CT scan yesterday showed inflammatory changes of the sigmoid but no appreciable fluid collection, official report pending. Will continue IV abx, IVF, clear liquids as tolerated for now and adjust analgesics. Hopefully she has improvement in the next 1-2 days with the IV antibiotics. Discussed with her she will likely require sigmoid resection given the repeated episodes, but hopefully this can be done after this acute episode. Will continue to closely monitor. <Leana Karimi PA-C - Last Filed: 01/13/22 09:07> 56 year old female admitted with diverticulitis. She reports ongoing LLQ pain not significantly improved. VSS. Abd exam with moderate LLQ/suprapubic tenderness and rebound, abd very soft. Repeat CT scan yesterday showed inflammatory changes of the sigmoid but no appreciable fluid collection, official report pending. Will continue IV abx, IVF, clear liquids as tolerated for now and adjust analgesics. Hopefully she has improvement in the next 1-2 days with the IV antibiotics. Discussed with her she will likely require sigmoid resection given the repeated episodes, but hopefully this can be done after this acute episode. Will continue to closely monitor. Patient continues to have lower abdominal pain consistent with diverticulitis. Yesterday's CT reviewed, official reading not complete at the time of this dictation. Sigmoid diverticulitis is identified but I am unable to identify an abscess, free air. Continue with IV antibiotics and pain management. Agree with the above assessment and plan. <Fernando Lim MD - Last Filed: 01/13/22 15:23> Time Spent With Patient Time: Total time spent is greater than 50% in coordination of care (as documented) at patient's floor/unit and/or counseling patient: <Leana Karimi PA-C - Last Filed: 01/13/22 09:07> Quality Stroke Does the patient have a stroke diagnosis?: No <Leana Karimi PA-C - Last Filed: 01/13/22 09:07> VTE Prior VTE?: No <Leana Karimi PA-C - Last Filed: 01/13/22 09:07> VTE Risk Level:: Medical - moderate - high <Leana Karimi PA-C - Last Filed: 01/13/22 09:07> VTE Device Contraindication: N/A - Device Ordered <Leana Karimi PA-C - Last Filed: 01/13/22 09:07> VTE Drug Contraindication: N/A - Med Ordered <Leana Karimi PA-C - Last Filed: 01/13/22 09:07>
[2022-01-13] MEDS: Nortriptyline HCl 25 MG CAPSULE 50 MG PO (09:04)
[2022-01-13] MEDS: lisinopriL 20 MG TABLET PO (09:05)
[2022-01-13] MEDS: Metoprolol Succinate ER 25 MG TAB.ER.24H PO (09:05)
[2022-01-13] MEDS: levoFLOXacin/D5W 750 MG/150 ML PIGGYBACK 100 MG IV (09:06)
[2022-01-13 09:10] VITALS: BP 138/71; PULSE 71; RESP 16; TEMP 35.9; O2SAT 99
[2022-01-13] MEDS: Ketorolac Tromethamine 15 MG/ML VIAL IVPUSH ×2 (09:23→15:40)
--- NOTE | 2022-01-13 13:22 | MHC.CLN ---
NUTRITION CONSULT FOR REPORTED 25# WEIGHT LOSS. PATIENT REPORTS WEIGHT LOSS X 2-3 MONTHS. REVIEW OF WEIGHT HX SHOWS WEIGHT LOSS X 1 YEAR -11%. CURRENT DIET=CLEAR LIQUIDS. ADDING ENSURE CLEAR TID TO IMPROVE NUTRITIONAL INTAKE. PROVIDES ADDITIONAL 720 KCALS, 24 G PROTEIN. MONITOR FOR DIET ADVANCEMENT/TOLERANCE.
[2022-01-13 15:56] VITALS: BP 133/71; PULSE 68; RESP 20; TEMP 36.6; O2SAT 98
[2022-01-13] MEDS: SUMAtriptan succinate 100 MG TABLET PO (19:03)
[2022-01-13 23:08] VITALS: BP 123/79; PULSE 58; RESP 16; TEMP 36.4; O2SAT 96
[2022-01-13] MEDS: 0.9 % Sodium Chloride Flush 3 ML SYRINGE IVFLUSH (23:52)
[2022-01-14] MEDS: metroNIDAZOLE/NS 500 MG/100 ML PIGGYBACK 100 MG IV ×3 (02:36→18:29)
[2022-01-14] MEDS: Heparin Sodium,Porcine 5,000 UNIT/ML VIAL 5000 UNIT SUBCUT ×2 (05:11→16:13)
[2022-01-14] MEDS: Omeprazole 40 MG CAPSULE.DR PO (05:13)
[2022-01-14] MEDS: Acetaminophen 1,000 MG/100 ML PIGGYBACK 400 MG IV ×3 (05:51→16:13)
[2022-01-14 08:00] VITALS: BP 163/73; PULSE 63; RESP 16; TEMP 36.1; O2SAT 97
[2022-01-14] MEDS: 0.9 % Sodium Chloride Flush 3 ML SYRINGE IVFLUSH ×3 (08:17→23:38)
--- NOTE | 2022-01-14 08:59 | PM.PNGS ---
Subjective Subjective Date of Service: 01/14/22 Interval history: Reports continued pain and nausea, some improvement with pain meds. She reports bowel movement this morning. Physical Exam Vital Signs: Vital Signs: Last Vital Signs Temp 97.0 F 01/14/22 08:00 Pulse 63 01/14/22 08:00 Resp 16 01/14/22 08:00 BP 163/73 H 01/14/22 08:00 Pulse Ox 97 01/14/22 08:00 O2 Del Method 01/14/22 08:00 BMI result Body Mass Index 27.1 Const: General: comfortable and no acute distress Nutritional Appearance: well nourished Orientation/consciousness: patient oriented x3 Resp: Other: Breathing comfortably on room air, no respiratory distress GI: Other: Tenderness to palpation of the left lower quadrant, soft and nontender in the other quadrants. No rebound or guarding. Skin: Other: Warm, dry, no rash Neuro: General: patient oriented x3 Extrem: Other: No edema Objective Data Active Medications Heparin Sodium (Porcine) (Heparin Sodium,Porcine 5,000 Unit/Ml Vial) 5,000 unit SUBCUT Q12H [facility] Last Admin: 01/14/22 05:11 Dose: 5,000 unit Documented By: JESS Hydromorphone HCl (Hydromorphone Hcl 0.5 Mg/0.5 Ml Syringe) 1 mg IVPUSH Q4H PRN; Protocol PRN Reason: Pain, Severe (Pain Scale 7-10) Levofloxacin (Levaquin) 750 mg in 150 mls @ 100 mls/hr IV DAILY [facility] Last Infusion: 01/13/22 11:03 Dose: 100 mls/hr Documented By: LENORA Metronidazole (Flagyl) 500 mg in 100 mls @ 100 mls/hr IV Q8H [facility] Last Infusion: 01/14/22 04:03 Dose: 0 mls/hr Documented By: JESS Promethazine HCl 12.5 mg/ (Sodium Chloride) 50.5 mls @ 202 mls/hr IV Q6H PRN PRN Reason: Nausea Last Infusion: 01/14/22 08:35 Dose: 0 mls/hr Documented By: ARNOLDOITZNell Acetaminophen (Ofirmev) 1,000 mg in 100 mls @ 400 mls/hr IV Q6H [facility] Last Infusion: 01/14/22 06:29 Dose: 0 mls/hr Documented By: JESS Ketorolac Tromethamine (Ketorolac Tromethamine 15 Mg/Ml Vial) 15 mg IVPUSH Q6H PRN PRN Reason: abdominal pain Last Admin: 01/13/22 15:40 Dose: 15 mg Documented By: ZACK Lisinopril (Lisinopril 20 Mg Tablet) 20 mg PO DAILY [facility]; Protocol Last Admin: 01/13/22 09:05 Dose: 20 mg Documented By: LENORA Metoprolol Succinate (Metoprolol Succinate Er 25 Mg Tab.Er.24h) 25 mg PO DAILY [facility]; Protocol Last Admin: 01/13/22 09:05 Dose: 25 mg Documented By: LENORA Nortriptyline HCl (Nortriptyline Hcl 25 Mg Capsule) 50 mg PO DAILY [facility] Last Admin: 01/13/22 09:04 Dose: 50 mg Documented By: LENORA Omeprazole (Omeprazole 40 Mg Capsule.Dr) 40 mg PO DAILY@0630 [facility] Last Admin: 01/14/22 05:13 Dose: 40 mg Documented By: JESS Oxycodone HCl (Oxycodone Hcl Immed Release 5 Mg Tablet) 10 mg PO Q4H PRN PRN Reason: Pain, Severe (Pain Scale 7-10) Oxycodone HCl (Oxycodone Hcl Immed Release 5 Mg Tablet) 5 mg PO Q4H PRN PRN Reason: Pain, Moderate (Pain Scale 4-6 Pharmacy Consult (Consult Rx Perform Med Rec) 1 each MISCELLANE ONCE PRN PRN Reason: Consult order Sodium Chloride (0.9 % Sodium Chloride Flush 3 Ml Syringe) 3 ml IVFLUSH QSHIFT [facility] Last Admin: 01/14/22 08:17 Dose: 3 ml Documented By: PREETI Sumatriptan Succinate (Sumatriptan Succinate 100 Mg Tablet) 100 mg PO DAILY PRN PRN Reason: migraine Last Admin: 01/13/22 19:03 Dose: 100 mg Documented By: ZACK Labs CBC & Chem 7: 01/13/22 05:57 01/13/22 05:56 Microbiology Microbiology Results: Microbiology 01/11/22 18:23 Blood Culture - Preliminary Blood - Venous No growth after 48 hours. 01/11/22 17:13 Blood Culture - Preliminary Blood - Venous No growth after 48 hours. Procedures Date of Service Date of Service: 01/14/22 Progress Note: A&P Assessment and plan (1) Sigmoid diverticulitis: Status: Acute (2) Abdominal pain: Status: Acute Plan Overall the patient is improving with IV antibiotics. CT finally read and confirms no abscess perforation. Continue IV antibiotics. Advance diet to full liquid. Check labs in a.m. Time Spent With Patient Time: Total time managing care of this patient today ____ minutes. Quality Stroke Does the patient have a stroke diagnosis?: No VTE Prior VTE?: No VTE Risk Level:: Medical - moderate - high VTE Device Contraindication: N/A - Device Ordered VTE Drug Contraindication: N/A - Med Ordered
[2022-01-14] MEDS: levoFLOXacin/D5W 750 MG/150 ML PIGGYBACK 100 MG IV (09:12)
[2022-01-14] MEDS: lisinopriL 20 MG TABLET PO (09:13)
[2022-01-14] MEDS: Metoprolol Succinate ER 25 MG TAB.ER.24H PO (09:13)
[2022-01-14] MEDS: Nortriptyline HCl 25 MG CAPSULE 50 MG PO (09:13)
--- NOTE | 2022-01-14 09:14 | MHC.CM.PN ---
CM MET WITH PT. LIVES ALONE IN AN APARTMENT. NO SERVICES OR DME USED. NO HCP, DECLINES TO DO ONE AT THIS TIME. COVID VAX X 4. PCP DR. FLYNN DP: HOME, NO SERVICES ANTICIPATED. DAUGHTER WILL TRANSPORT. CM WILL CONTINUE TO FOLLOW
[2022-01-14] MEDS: Ketorolac Tromethamine 15 MG/ML VIAL IVPUSH ×2 (15:08→23:31)
[2022-01-14 15:37] VITALS: BP 164/68; PULSE 75; RESP 20; TEMP 36.4; O2SAT 98
[2022-01-14] MEDS: SUMAtriptan succinate 100 MG TABLET PO (20:26)
[2022-01-14 23:32] VITALS: BP 143/72; PULSE 60; RESP 16; TEMP 36.4; O2SAT 94
[2022-01-14] MEDS: Acetaminophen 1,000 MG/100 ML PIGGYBACK 100 MG IV (23:32)
[2022-01-15] MEDS: metroNIDAZOLE/NS 500 MG/100 ML PIGGYBACK 100 MG IV ×3 (04:41→18:18)
[2022-01-15] MEDS: Omeprazole 40 MG CAPSULE.DR PO (05:45)
[2022-01-15] MEDS: Heparin Sodium,Porcine 5,000 UNIT/ML VIAL 5000 UNIT SUBCUT ×2 (05:45→16:56)
[2022-01-15] MEDS: Acetaminophen 1,000 MG/100 ML PIGGYBACK 100 MG IV (05:45)
[2022-01-15 06:35] LABS: Hematocrit 32.8 % (37.0-47.0); Hemoglobin 10.5 g/dl (12.0-16.0); Mean Corpuscular Hemoglobin 26.5 pg (27.0-33.0); Mean Corpuscular Volume 82.8 fL (80.0-98.0); Mean Platelet Volume 9.6 fL (9.4-12.3); Platelet Count 266 X10*3/uL (160-400); Red Blood Count 3.96 X10*6/uL (4.20-5.50); White Blood Count 4.6 X10*3/uL (4.8-10.8)
[2022-01-15 06:46] LABS: Anion Gap 10 (12-20); Blood Urea Nitrogen 4 mg/dL (9-16); Calcium 8.9 mg/dL (8.4-10.2); Carbon Dioxide 29 mmol/L (22-29); Chloride 105 mmol/L (96-108); Creatinine Clr Calc Pharmacy 73.4; Estimated Glomerular Filt Rate > 60; Glucose Random 86 mg/dL (60-115); Potassium 3.9 mmol/L (3.3-5.1); Sodium 140 mmol/L (135-145)
[2022-01-15 07:52] VITALS: BP 166/77; PULSE 56; RESP 18; TEMP 36.2; O2SAT 100
[2022-01-15] MEDS: 0.9 % Sodium Chloride Flush 3 ML SYRINGE IVFLUSH ×3 (09:04→19:21)
[2022-01-15] MEDS: levoFLOXacin/D5W 750 MG/150 ML PIGGYBACK 100 MG IV (09:05)
[2022-01-15] MEDS: lisinopriL 20 MG TABLET PO (09:05)
[2022-01-15] MEDS: Metoprolol Succinate ER 25 MG TAB.ER.24H PO (09:05)
[2022-01-15] MEDS: Nortriptyline HCl 25 MG CAPSULE 50 MG PO (09:05)
--- NOTE | 2022-01-15 10:33 | P.PNGS_ITS ---
Subjective Subjective Date of Service: 01/15/22 Interval history: Continued abdominal pain despite increasing pain medication. Did have a bowel movement yesterday although not recorded in I & O's. Physical Exam Vital Signs: Vital Signs: Last Vital Signs Temp 97.2 F 01/15/22 07:52 Pulse 56 01/15/22 07:52 Resp 18 01/15/22 07:52 BP 166/77 H 01/15/22 07:52 Pulse Ox 100 01/15/22 07:52 O2 Del Method 01/15/22 07:52 BMI result Body Mass Index 27.1 Const: General: comfortable and no acute distress Nutritional Appearance: well nourished Orientation/consciousness: patient oriented x3 Resp: Other: Breathing comfortably on room air, no respiratory distress GI: Other: Tenderness to palpation of the left lower quadrant, soft and nontender in the other quadrants. No rebound or guarding. Skin: Other: Warm, dry, no rash Neuro: General: patient oriented x3 Extrem: Other: No edema Objective Data Active Medications Heparin Sodium (Porcine) (Heparin Sodium,Porcine 5,000 Unit/Ml Vial) 5,000 unit SUBCUT Q12H [facility] Last Admin: 01/15/22 05:45 Dose: 5,000 unit Documented By: XIMENA Hydromorphone HCl (Hydromorphone Hcl 0.5 Mg/0.5 Ml Syringe) 1 mg IVPUSH Q4H PRN; Protocol PRN Reason: Pain, Severe (Pain Scale 7-10) Levofloxacin (Levaquin) 750 mg in 150 mls @ 100 mls/hr IV DAILY [facility] Last Admin: 01/15/22 09:05 Dose: 100 mls/hr Documented By: PREETI Metronidazole (Flagyl) 500 mg in 100 mls @ 100 mls/hr IV Q8H [facility] Last Infusion: 01/15/22 07:05 Dose: 0 mls/hr Documented By: XIMENA Promethazine HCl 12.5 mg/ (Sodium Chloride) 50.5 mls @ 202 mls/hr IV Q6H PRN PRN Reason: Nausea Last Infusion: 01/14/22 08:35 Dose: 0 mls/hr Documented By: PREETI Ketorolac Tromethamine (Ketorolac Tromethamine 15 Mg/Ml Vial) 15 mg IVPUSH Q6H PRN PRN Reason: abdominal pain Last Admin: 01/14/22 23:31 Dose: 15 mg Documented By: XIMENA Lisinopril (Lisinopril 20 Mg Tablet) 20 mg PO DAILY [facility]; Protocol Last Admin: 01/15/22 09:05 Dose: 20 mg Documented By: PREETI Metoprolol Succinate (Metoprolol Succinate Er 25 Mg Tab.Er.24h) 25 mg PO DAILY [facility]; Protocol Last Admin: 01/15/22 09:05 Dose: 25 mg Documented By: PREETI Nortriptyline HCl (Nortriptyline Hcl 25 Mg Capsule) 50 mg PO DAILY [facility] Last Admin: 01/15/22 09:05 Dose: 50 mg Documented By: PREETI Omeprazole (Omeprazole 40 Mg Capsule.Dr) 40 mg PO DAILY@0630 [facility] Last Admin: 01/15/22 05:45 Dose: 40 mg Documented By: XIMENA Oxycodone HCl (Oxycodone Hcl Immed Release 5 Mg Tablet) 10 mg PO Q4H PRN PRN Reason: Pain, Severe (Pain Scale 7-10) Oxycodone HCl (Oxycodone Hcl Immed Release 5 Mg Tablet) 5 mg PO Q4H PRN PRN Reason: Pain, Moderate (Pain Scale 4-6 Pharmacy Consult (Consult Rx Perform Med Rec) 1 each MISCELLANE ONCE PRN PRN Reason: Consult order Sodium Chloride (0.9 % Sodium Chloride Flush 3 Ml Syringe) 3 ml IVFLUSH QSHIFT [facility] Last Admin: 01/15/22 09:04 Dose: 3 ml Documented By: PREETI Sumatriptan Succinate (Sumatriptan Succinate 100 Mg Tablet) 100 mg PO DAILY PRN PRN Reason: migraine Last Admin: 01/14/22 20:26 Dose: 100 mg Documented By: NAKUL Labs CBC & Chem 7: 01/15/22 05:52 01/15/22 05:52 Labs: Laboratory Results - last 24 hr 01/15/22 01/15/22 05:52 05:52 MCV 82.8 MCH 26.5 L MCHC 32.0 RDW 14.0 Plt Count 266 MPV 9.6 Absolute Nucleated RBC 0.000 Nucleated RBC % (auto) 0.0 Anion Gap 10 L Estim Creat Clear Calc 73.4 Estimated GFR > 60 Random Glucose 86 Calcium 8.9 Procedures Date of Service Date of Service: 01/15/22 Progress Note: A&P Assessment and plan (1) Sigmoid diverticulitis: Status: Acute (2) Abdominal pain: Status: Acute Plan 56-year-old female patient with uncomplicated sigmoid diverticulitis, recurrent admitted for IV antibiotics and pain management. She continues to report abdominal pain despite increasing pain medication. Will continue current antibiotics. WBC has been normal. Will advance diet to soft /low residue diet. Add Ensure supplements. Time Spent With Patient Time: Total time managing care of this patient today ____ minutes. Quality Stroke Does the patient have a stroke diagnosis?: No VTE Prior VTE?: No VTE Risk Level:: Medical - moderate - high VTE Device Contraindication: N/A - Device Ordered VTE Drug Contraindication: N/A - Med Ordered
[2022-01-15] MEDS: Ketorolac Tromethamine 15 MG/ML VIAL IVPUSH (14:04)
[2022-01-15 15:52] VITALS: BP 133/75; PULSE 70; RESP 18; TEMP 36.1; O2SAT 97
[2022-01-15] MEDS: oxyCODONE HCl Immed Release 5 MG TABLET PO (16:57)
[2022-01-15 19:46] VITALS: BP 134/71; PULSE 71; RESP 18; TEMP 36; O2SAT 97
[2022-01-15] MEDS: SUMAtriptan succinate 100 MG TABLET PO (21:55)
[2022-01-15 23:31] VITALS: BP 164/72; PULSE 53; RESP 16; TEMP 36.5; O2SAT 97
[2022-01-16] MEDS: HYDROmorphone HCl 0.5 MG/0.5 ML SYRINGE 1 MG IVPUSH ×3 (00:11→15:55)
[2022-01-16 02:58] VITALS: BP 144/83; PULSE 59; RESP 16; TEMP 36; O2SAT 98
[2022-01-16] MEDS: metroNIDAZOLE/NS 500 MG/100 ML PIGGYBACK 100 MG IV ×3 (03:16→17:45)
[2022-01-16] MEDS: Heparin Sodium,Porcine 5,000 UNIT/ML VIAL 5000 UNIT SUBCUT ×2 (04:34→15:54)
[2022-01-16] MEDS: Omeprazole 40 MG CAPSULE.DR PO (06:14)
--- NOTE | 2022-01-16 07:31 | MHC.CLN ---
F/U DIET ADVANCED TO REGULAR, LOW FIBER. ENSURE TID PROVIDES ADDITIONAL 1050 [address]ALS, [address] TO F/U WEEKLY.
[2022-01-16 08:00] VITALS: BP 147/71; PULSE 62; RESP 16; TEMP 36.1; O2SAT 97
--- NOTE | 2022-01-16 08:19 | P.PNGS_ITS ---
Subjective Subjective Date of Service: 01/17/22 Interval history: still c/o LLQ pain although a little better tolerating diet no fever Physical Exam Vital Signs: Vital Signs: Last Vital Signs Temp 97.0 F 01/16/22 08:00 Pulse 62 01/16/22 08:00 Resp 16 01/16/22 08:00 BP 147/71 H 01/16/22 08:00 Pulse Ox 97 01/16/22 08:00 O2 Del Method 01/16/22 08:00 BMI result Body Mass Index 27.1 Const: General: comfortable and no acute distress Resp: Effort & Inspection: normal respiratory effort Cardio: Rate: regular rate GI: Palpation (GI): Soft to palpation, not firm, Tenderness to palpation present (GI) (LLQ) and no guarding Objective Data Active Medications Heparin Sodium (Porcine) (Heparin Sodium,Porcine 5,000 Unit/Ml Vial) 5,000 unit SUBCUT Q12H [facility] Last Admin: 01/16/22 04:34 Dose: 5,000 unit Documented By: KACEY Hydromorphone HCl (Hydromorphone Hcl 0.5 Mg/0.5 Ml Syringe) 1 mg IVPUSH Q4H PRN; Protocol PRN Reason: Pain, Severe (Pain Scale 7-10) Last Admin: 01/16/22 00:11 Dose: 1 mg Documented By: KACEY Levofloxacin (Levaquin) 750 mg in 150 mls @ 100 mls/hr IV DAILY [facility] Last Infusion: 01/15/22 10:43 Dose: 0 mls/hr Documented By: PREETI Metronidazole (Flagyl) 500 mg in 100 mls @ 100 mls/hr IV Q8H [facility] Last Infusion: 01/16/22 04:37 Dose: 0 mls/hr Documented By: KACEY Promethazine HCl 12.5 mg/ (Sodium Chloride) 50.5 mls @ 202 mls/hr IV Q6H PRN PRN Reason: Nausea Last Infusion: 01/14/22 08:35 Dose: 0 mls/hr Documented By: PREETI Ketorolac Tromethamine (Ketorolac Tromethamine 15 Mg/Ml Vial) 15 mg IVPUSH Q6H PRN PRN Reason: abdominal pain Last Admin: 01/15/22 14:04 Dose: 15 mg Documented By: PREETI Lisinopril (Lisinopril 20 Mg Tablet) 20 mg PO DAILY [facility]; Protocol Last Admin: 01/15/22 09:05 Dose: 20 mg Documented By: PREETI Metoprolol Succinate (Metoprolol Succinate Er 25 Mg Tab.Er.24h) 25 mg PO DAILY [facility]; Protocol Last Admin: 01/15/22 09:05 Dose: 25 mg Documented By: PREETI Nortriptyline HCl (Nortriptyline Hcl 25 Mg Capsule) 50 mg PO DAILY [facility] Last Admin: 01/15/22 09:05 Dose: 50 mg Documented By: PREETI Omeprazole (Omeprazole 40 Mg Capsule.Dr) 40 mg PO DAILY@0630 [facility] Last Admin: 01/16/22 06:14 Dose: 40 mg Documented By: KACEY Oxycodone HCl (Oxycodone Hcl Immed Release 5 Mg Tablet) 10 mg PO Q4H PRN PRN Reason: Pain, Severe (Pain Scale 7-10) Oxycodone HCl (Oxycodone Hcl Immed Release 5 Mg Tablet) 5 mg PO Q4H PRN PRN Reason: Pain, Moderate (Pain Scale 4-6 Last Admin: 01/15/22 16:57 Dose: 5 mg Documented By: PREETI Pharmacy Consult (Consult Rx Perform Med Rec) 1 each MISCELLANE ONCE PRN PRN Reason: Consult order Sodium Chloride (0.9 % Sodium Chloride Flush 3 Ml Syringe) 3 ml IVFLUSH [facility] Last Admin: 01/15/22 19:21 Dose: 3 ml Documented By: KACEY Sumatriptan Succinate (Sumatriptan Succinate 100 Mg Tablet) 100 mg PO DAILY PRN PRN Reason: migraine Last Admin: 01/15/22 21:55 Dose: 100 mg Documented By: KACEY Labs CBC & Chem 7: 01/15/22 05:52 01/15/22 05:52 Procedures Date of Service Date of Service: 01/16/22 Progress Note: A&P Assessment and plan (1) Sigmoid diverticulitis: Status: Acute Assessment and Plan: minimal inflammatory changes but pt still with tenderness no fever no leukocytosis continue current care IV abx pt ambulating pain mgt Time Spent With Patient Time: Total time managing care of this patient today ____ minutes. Quality Stroke Does the patient have a stroke diagnosis?: No VTE Prior VTE?: No VTE Risk Level:: Medical - moderate - high VTE Device Contraindication: N/A - Device Ordered VTE Drug Contraindication: N/A - Med Ordered
[2022-01-16] MEDS: Nortriptyline HCl 25 MG CAPSULE 50 MG PO (08:50)
[2022-01-16] MEDS: lisinopriL 20 MG TABLET PO (08:50)
[2022-01-16] MEDS: 0.9 % Sodium Chloride Flush 3 ML SYRINGE IVFLUSH ×3 (08:50→23:47)
[2022-01-16] MEDS: Metoprolol Succinate ER 25 MG TAB.ER.24H PO (08:50)
[2022-01-16] MEDS: levoFLOXacin/D5W 750 MG/150 ML PIGGYBACK 100 MG IV (08:50)
[2022-01-16] MEDS: oxyCODONE HCl Immed Release 5 MG TABLET 10 MG PO (11:08)
[2022-01-16 16:00] VITALS: BP 149/87; PULSE 75; RESP 19; TEMP 36.8; O2SAT 95
[2022-01-16 19:32] VITALS: BP 127/88; PULSE 83; RESP 19; TEMP 36.8; O2SAT 95
[2022-01-17] VITALS: BP 141/74; PULSE 79; RESP 18; TEMP 36.2; O2SAT 96
[2022-01-17 03:16] VITALS: BP 140/71; PULSE 63; RESP 16; TEMP 36.6; O2SAT 98
[2022-01-17] MEDS: metroNIDAZOLE/NS 500 MG/100 ML PIGGYBACK 100 MG IV ×3 (04:13→18:06)
[2022-01-17] MEDS: Omeprazole 40 MG CAPSULE.DR PO (05:14)
[2022-01-17] MEDS: Heparin Sodium,Porcine 5,000 UNIT/ML VIAL 5000 UNIT SUBCUT ×2 (05:15→17:08)
[2022-01-17] MEDS: Nortriptyline HCl 25 MG CAPSULE 50 MG PO (07:24)
[2022-01-17] MEDS: Metoprolol Succinate ER 25 MG TAB.ER.24H PO (07:24)
[2022-01-17] MEDS: levoFLOXacin/D5W 750 MG/150 ML PIGGYBACK 100 MG IV (07:24)
[2022-01-17 07:25] VITALS: BP 140/75
[2022-01-17] MEDS: lisinopriL 20 MG TABLET PO (07:25)
[2022-01-17 07:52] VITALS: BP 136/68; PULSE 63; RESP 18; TEMP 36.1; O2SAT 99
--- NOTE | 2022-01-17 08:39 | PM.PNGS ---
Subjective Subjective Date of Service: 01/17/22 <Leana Karimi PA-C - Last Filed: 01/17/22 08:42> 01/17/22 <Fritz Veliz MD - Last Filed: 01/17/22 14:04> Interval history: Feels so so . Pain with some improvement but persistent in lower abdomen. Tolerating solid diet but reports pain after. Had small BM yesterday. <Leana Karimi PA-C - Last Filed: 01/17/22 08:42> Physical Exam Vital Signs: Vital Signs: Last Vital Signs Temp 97.0 F 01/17/22 07:52 Pulse 63 01/17/22 07:52 Resp 18 01/17/22 07:52 BP 136/68 01/17/22 07:52 Pulse Ox 99 01/17/22 07:52 O2 Del Method 01/17/22 07:52 BMI result Body Mass Index 27.1 <Leana Karimi PA-C - Last Filed: 01/17/22 08:42> Const: General: comfortable, no acute distress and alert <Leana Karimi PA-C - Last Filed: 01/17/22 08:42> Orientation/consciousness: patient oriented x3 <Leana Karimi PA-C - Last Filed: 01/17/22 08:42> Resp: Effort & Inspection: normal respiratory effort <Leana Karimi PA-C - Last Filed: 01/17/22 08:42> GI: Inspection: No distended <Leana Karimi PA-C - Last Filed: 01/17/22 08:42> Palpation (GI): Tenderness to palpation present (GI) in the LLQ and suprapubicly, no guarding and not rigid <Leana Karimi PA-C - Last Filed: 01/17/22 08:42> Percussion: Yes normal to percussion <TERELL Cowart Last Filed: 01/17/22 08:42> Skin: General skin exam: no rashes or lesions noted <TERELL Cowart Last Filed: 01/17/22 08:42> Neuro: General: patient oriented x3 and moves all extremities <Leana Karimi PA-C - Last Filed: 01/17/22 08:42> Objective Data Active Medications Heparin Sodium (Porcine) (Heparin Sodium,Porcine 5,000 Unit/Ml Vial) 5,000 unit SUBCUT Q12H [facility] Last Admin: 01/17/22 05:15 Dose: 5,000 unit Documented By: ELOISA Hydromorphone HCl (Hydromorphone Hcl 0.5 Mg/0.5 Ml Syringe) 1 mg IVPUSH Q4H PRN; Protocol PRN Reason: Pain, Severe (Pain Scale 7-10) Last Admin: 01/16/22 15:55 Dose: 1 mg Documented By: CHERI Levofloxacin (Levaquin) 750 mg in 150 mls @ 100 mls/hr IV DAILY [facility] Last Admin: 01/17/22 07:24 Dose: 100 mls/hr Documented By: ALESSANDRO Metronidazole (Flagyl) 500 mg in 100 mls @ 100 mls/hr IV Q8H [facility] Last Infusion: 01/17/22 05:17 Dose: 0 mls/hr Documented By: ELOISA Promethazine HCl 12.5 mg/ (Sodium Chloride) 50.5 mls @ 202 mls/hr IV Q6H PRN PRN Reason: Nausea Last Infusion: 01/16/22 10:15 Dose: 0 mls/hr Documented By: CHERI Ketorolac Tromethamine (Ketorolac Tromethamine 15 Mg/Ml Vial) 15 mg IVPUSH Q6H PRN PRN Reason: abdominal pain Last Admin: 01/15/22 14:04 Dose: 15 mg Documented By: PREETI Lisinopril (Lisinopril 20 Mg Tablet) 20 mg PO DAILY [facility]; Protocol Last Admin: 01/17/22 07:25 Dose: 20 mg Documented By: ALESSANDRO Metoprolol Succinate (Metoprolol Succinate Er 25 Mg Tab.Er.24h) 25 mg PO DAILY [facility]; Protocol Last Admin: 01/17/22 07:24 Dose: 25 mg Documented By: ALESSANDRO Nortriptyline HCl (Nortriptyline Hcl 25 Mg Capsule) 50 mg PO DAILY [facility] Last Admin: 01/17/22 07:24 Dose: 50 mg Documented By: ALESSANDRO Omeprazole (Omeprazole 40 Mg Capsule.Dr) 40 mg PO DAILY@0630 [facility] Last Admin: 01/17/22 05:14 Dose: 40 mg Documented By: ELOISA Oxycodone HCl (Oxycodone Hcl Immed Release 5 Mg Tablet) 10 mg PO Q4H PRN PRN Reason: Pain, Severe (Pain Scale 7-10) Last Admin: 01/16/22 11:08 Dose: 10 mg Documented By: KATELYNN Oxycodone HCl (Oxycodone Hcl Immed Release 5 Mg Tablet) 5 mg PO Q4H PRN PRN Reason: Pain, Moderate (Pain Scale 4-6 Last Admin: 01/15/22 16:57 Dose: 5 mg Documented By: PREETI Pharmacy Consult (Consult Rx Perform Med Rec) 1 each MISCELLANE ONCE PRN PRN Reason: Consult order Sodium Chloride (0.9 % Sodium Chloride Flush 3 Ml Syringe) 3 ml IVFLUSH [facility] Last Admin: 01/16/22 23:47 Dose: 3 ml Documented By: ELOISA Sumatriptan Succinate (Sumatriptan Succinate 100 Mg Tablet) 100 mg PO DAILY PRN PRN Reason: migraine Last Admin: 01/15/22 21:55 Dose: 100 mg Documented By: KACEY <Leana Karimi PA-C - Last Filed: 01/17/22 08:42> Labs CBC & Chem 7: : 01/15/22 05:52 01/15/22 05:52 <Leana Karimi PA-C - Last Filed: 01/17/22 08:42> Microbiology Microbiology Results: Microbiology 01/11/22 18:23 Blood Culture - Final Blood - Venous No growth after 5 days. 01/11/22 17:13 Blood Culture - Final Blood - Venous No growth after 5 days. <Leana Karimi PA-C - Last Filed: 01/17/22 08:42> Procedures Date of Service Date of Service: 01/17/22 <Leana Karimi PA-C - Last Filed: 01/17/22 08:42> Progress Note: A&P Assessment and plan (1) Sigmoid diverticulitis: Status: Acute <Leana Karimi PA-C - Last Filed: 01/17/22 08:42> Assessment and Plan: says she feels better although still with some pain tolerating diet has good BMs and flatus abd soft no fever possible home tomorrow seen and examined independently <Fritz Veliz MD - Last Filed: 01/17/22 14:04> Assessment and Plan: 56 year old female admitted with acute diverticulitis. She is slowly improving. She is clinically appearing well, abdomen is very benign with lower abd tenderness in LLQ and suprapubic region without any peritoneal signs. Exam does seem improved. Will continue IV abx for one more day, possible transition to PO abx tomorrow and discharge if continued improvement. Will begin bowel regimen. <Leana Karimi PA-C - Last Filed: 01/17/22 08:42> Time Spent With Patient Time: Total time managing care of this patient today ____ minutes. <Leana Karimi PA-C - Last Filed: 01/17/22 08:42> Quality Stroke Does the patient have a stroke diagnosis?: No <Leana Karimi PA-C - Last Filed: 01/17/22 08:42> VTE Prior VTE?: No <Leana Karimi PA-C - Last Filed: 01/17/22 08:42> VTE Risk Level:: Medical - moderate - high <Leana Karimi PA-C - Last Filed: 01/17/22 08:42> VTE Device Contraindication: N/A - Device Ordered <Leana Karimi PA-C - Last Filed: 01/17/22 08:42> VTE Drug Contraindication: N/A - Med Ordered <TERELL Cowart Last Filed: 01/17/22 08:42>
[2022-01-17] MEDS: polyethylene glycoL 3350 17 GM POWD.PACK PO (08:55)
[2022-01-17] MEDS: Docusate Sodium 100 MG CAPSULE PO ×2 (08:55→22:24)
[2022-01-17 15:53] VITALS: BP 119/78; PULSE 87; RESP 18; TEMP 36.6; O2SAT 97
[2022-01-17] MEDS: 0.9 % Sodium Chloride Flush 3 ML SYRINGE IVFLUSH (22:25)
[2022-01-17 23:26] VITALS: BP 139/73; PULSE 77; RESP 16; TEMP 36.7; O2SAT 98
[2022-01-18] MEDS: metroNIDAZOLE/NS 500 MG/100 ML PIGGYBACK 100 MG IV ×3 (03:06→18:31)
[2022-01-18] MEDS: Ketorolac Tromethamine 15 MG/ML VIAL IVPUSH (03:11)
[2022-01-18] MEDS: Omeprazole 40 MG CAPSULE.DR PO (05:47)
[2022-01-18] MEDS: Heparin Sodium,Porcine 5,000 UNIT/ML VIAL 5000 UNIT SUBCUT ×2 (05:47→16:08)
[2022-01-18] MEDS: HYDROmorphone HCl 0.5 MG/0.5 ML SYRINGE 1 MG IVPUSH ×3 (05:48→19:36)
[2022-01-18 07:43] VITALS: BP 139/76; PULSE 64; RESP 18; TEMP 37.1; O2SAT 95
--- NOTE | 2022-01-18 08:20 | PM.PNGS ---
Subjective Subjective Date of Service: 01/18/22 <Leana Karimi PA-C - Last Filed: 01/18/22 08:23> 01/19/22 <Fritz Veliz MD - Last Filed: 01/19/22 12:30> Interval history: States she is having a lot of abdominal pain because she can't have a bowel movement. Denies flatus but feels rumbling . Has been ambulating in room. Tolerating diet. <Leana Karimi PA-C - Last Filed: 01/18/22 08:23> Physical Exam Vital Signs: Vital Signs: Last Vital Signs Temp 98.8 F 01/18/22 07:43 Pulse 64 01/18/22 07:43 Resp 18 01/18/22 07:43 BP 139/76 01/18/22 07:43 Pulse Ox 95 01/18/22 07:43 O2 Del Method 01/18/22 07:43 BMI result Body Mass Index 27.1 <Leana Karimi PA-C - Last Filed: 01/18/22 08:23> Const: General: comfortable, no acute distress and well developed <Leana Karimi PA-C - Last Filed: 01/18/22 08:23> Orientation/consciousness: patient oriented x3 <Leana Karimi PA-C - Last Filed: 01/18/22 08:23> Resp: Effort & Inspection: normal respiratory effort <Leana Karimi PA-C - Last Filed: 01/18/22 08:23> GI: Inspection: No distended <Leana Karimi PA-C - Last Filed: 01/18/22 08:23> Palpation (GI): Soft to palpation, Tenderness to palpation present (GI) (mild, lower abd), no guarding and not rigid <Leana Karimi PA-C - Last Filed: 01/18/22 08:23> Percussion: Yes normal to percussion <TERELL Cowart Last Filed: 01/18/22 08:23> Skin: General skin exam: no rashes or lesions noted <TERELL Cowart Last Filed: 01/18/22 08:23> Neuro: General: patient oriented x3 <Leana Karimi PA-C - Last Filed: 01/18/22 08:23> Objective Data Active Medications Docusate Sodium (Docusate Sodium 100 Mg Capsule) 100 mg PO BID [facility] Last Admin: 01/17/22 22:24 Dose: 100 mg Documented By: JOANNA Heparin Sodium (Porcine) (Heparin Sodium,Porcine 5,000 Unit/Ml Vial) 5,000 unit SUBCUT Q12H [facility] Last Admin: 01/18/22 05:47 Dose: 5,000 unit Documented By: JOANNA Hydromorphone HCl (Hydromorphone Hcl 0.5 Mg/0.5 Ml Syringe) 1 mg IVPUSH Q4H PRN; Protocol PRN Reason: Pain, Severe (Pain Scale 7-10) Last Admin: 01/18/22 05:48 Dose: 1 mg Documented By: JOANNA Levofloxacin (Levaquin) 750 mg in 150 mls @ 100 mls/hr IV DAILY [facility] Last Infusion: 01/17/22 09:48 Dose: 0 mls/hr Documented By: ALESSANDRO Metronidazole (Flagyl) 500 mg in 100 mls @ 100 mls/hr IV Q8H [facility] Last Infusion: 01/18/22 04:23 Dose: 0 mls/hr Documented By: JOANNA Promethazine HCl 12.5 mg/ (Sodium Chloride) 50.5 mls @ 202 mls/hr IV Q6H PRN PRN Reason: Nausea Last Infusion: 01/16/22 10:15 Dose: 0 mls/hr Documented By: CHERI Ketorolac Tromethamine (Ketorolac Tromethamine 15 Mg/Ml Vial) 15 mg IVPUSH Q6H PRN PRN Reason: abdominal pain Last Admin: 01/18/22 03:11 Dose: 15 mg Documented By: JOANNA Lisinopril (Lisinopril 20 Mg Tablet) 20 mg PO DAILY [facility]; Protocol Last Admin: 01/17/22 07:25 Dose: 20 mg Documented By: ALESSANDRO Metoprolol Succinate (Metoprolol Succinate Er 25 Mg Tab.Er.24h) 25 mg PO DAILY [facility]; Protocol Last Admin: 01/17/22 07:24 Dose: 25 mg Documented By: ALESSANDRO Nortriptyline HCl (Nortriptyline Hcl 25 Mg Capsule) 50 mg PO DAILY [facility] Last Admin: 01/17/22 07:24 Dose: 50 mg Documented By: ALESSANDRO Omeprazole (Omeprazole 40 Mg Capsule.Dr) 40 mg PO DAILY@0630 [facility] Last Admin: 01/18/22 05:47 Dose: 40 mg Documented By: JOANNA Oxycodone HCl (Oxycodone Hcl Immed Release 5 Mg Tablet) 10 mg PO Q4H PRN PRN Reason: Pain, Severe (Pain Scale 7-10) Last Admin: 01/16/22 11:08 Dose: 10 mg Documented By: KATELYNN Oxycodone HCl (Oxycodone Hcl Immed Release 5 Mg Tablet) 5 mg PO Q4H PRN PRN Reason: Pain, Moderate (Pain Scale 4-6 Last Admin: 01/15/22 16:57 Dose: 5 mg Documented By: PREETI Pharmacy Consult (Consult Rx Perform Med Rec) 1 each MISCELLANE ONCE PRN PRN Reason: Consult order Polyethylene Glycol (Polyethylene Glycol 3350 17 Gm Powd.Pack) 17 gm PO DAILY [facility] Last Admin: 01/17/22 08:55 Dose: 17 gm Documented By: ALESSANDRO Sodium Chloride (0.9 % Sodium Chloride Flush 3 Ml Syringe) 3 ml IVFLUSH QSHIFT [facility] Last Admin: 01/17/22 22:25 Dose: 3 ml Documented By: JOANNA Sumatriptan Succinate (Sumatriptan Succinate 100 Mg Tablet) 100 mg PO DAILY PRN PRN Reason: migraine Last Admin: 01/15/22 21:55 Dose: 100 mg Documented By: KACEY <Leana Karimi PA-C - Last Filed: 01/18/22 08:23> Labs CBC & Chem 7: : 01/15/22 05:52 01/15/22 05:52 <Leana Karimi PA-C - Last Filed: 01/18/22 08:23> Procedures Date of Service Date of Service: 01/18/22 <Leana Karimi PA-C - Last Filed: 01/18/22 08:23> Progress Note: A&P Assessment and plan (1) Sigmoid diverticulitis: Status: Acute <Leana Karimi PA-C - Last Filed: 01/18/22 08:23> Assessment and Plan: states she is not ready to go home today because of pain and constipation she looks well otherwise abdomen soft and very benign continue laxatives tolerating diet well with good oral intake seen and examined independently <Fritz Veliz MD - Last Filed: 01/19/22 12:30> Assessment and Plan: 56 year old female admitted with acute diverticulitis. She has improved with non operative measures. She is clinically appearing well, afebrile, and her abdomen is very benign with mild lower abd tenderness without any peritoneal signs. She reports pain today with constipation. Continue bowel regimen, OOB and ambulation strongly encouraged. Will reassess later today for possible dc to home if improved. <Leana Karimi PA-C - Last Filed: 01/18/22 08:23> Time Spent With Patient Time: Total time managing care of this patient today ____ minutes. <Leana Karimi PA-C - Last Filed: 01/18/22 08:23> Quality Stroke Does the patient have a stroke diagnosis?: No <Leana Karimi PA-C - Last Filed: 01/18/22 08:23> VTE Prior VTE?: No <Leana Karimi PA-C - Last Filed: 01/18/22 08:23> VTE Risk Level:: Medical - moderate - high <Leana Karimi PA-C - Last Filed: 01/18/22 08:23> VTE Device Contraindication: N/A - Device Ordered <Leana Karimi PA-C - Last Filed: 01/18/22 08:23> VTE Drug Contraindication: N/A - Med Ordered <Leana Karimi PA-C - Last Filed: 01/18/22 08:23>
[2022-01-18] MEDS: Docusate Sodium 100 MG CAPSULE PO ×2 (09:28→19:36)
[2022-01-18] MEDS: levoFLOXacin/D5W 750 MG/150 ML PIGGYBACK 100 MG IV (09:28)
[2022-01-18] MEDS: polyethylene glycoL 3350 17 GM POWD.PACK PO (09:28)
[2022-01-18] MEDS: Nortriptyline HCl 25 MG CAPSULE 50 MG PO (09:28)
[2022-01-18] MEDS: Metoprolol Succinate ER 25 MG TAB.ER.24H PO (09:28)
[2022-01-18] MEDS: lisinopriL 20 MG TABLET PO (09:28)
[2022-01-18] MEDS: 0.9 % Sodium Chloride Flush 3 ML SYRINGE IVFLUSH ×2 (09:29→19:37)
--- NOTE | 2022-01-18 14:30 | MHC.CM.PN ---
PATIENT STILL WITH ABDOMINAL PAIN RELATED TO CONSTIPATION. POSSIBLE RETURN HOME TOMORROW - SELF CARE
[2022-01-18 15:52] VITALS: BP 138/64; PULSE 75; RESP 16; TEMP 36.3; O2SAT 100
[2022-01-18 19:11] VITALS: BP 130/72; PULSE 74; RESP 16; TEMP 36.3; O2SAT 98
[2022-01-18 23:30] VITALS: BP 138/67; PULSE 76; RESP 16; TEMP 36.5; O2SAT 96
[2022-01-19] MEDS: metroNIDAZOLE/NS 500 MG/100 ML PIGGYBACK 100 MG IV ×3 (02:58→19:01)
[2022-01-19] MEDS: Omeprazole 40 MG CAPSULE.DR PO (05:40)
[2022-01-19] MEDS: Heparin Sodium,Porcine 5,000 UNIT/ML VIAL 5000 UNIT SUBCUT ×2 (05:40→17:32)
[2022-01-19 08:00] VITALS: BP 134/74; PULSE 78; RESP 18; TEMP 35.9
[2022-01-19] MEDS: polyethylene glycoL 3350 17 GM POWD.PACK PO (08:39)
[2022-01-19] MEDS: Nortriptyline HCl 25 MG CAPSULE 50 MG PO (08:39)
[2022-01-19] MEDS: levoFLOXacin/D5W 750 MG/150 ML PIGGYBACK 100 MG IV (08:39)
[2022-01-19] MEDS: 0.9 % Sodium Chloride Flush 3 ML SYRINGE IVFLUSH ×3 (08:40→20:07)
[2022-01-19] MEDS: lisinopriL 20 MG TABLET PO (08:40)
[2022-01-19] MEDS: Metoprolol Succinate ER 25 MG TAB.ER.24H PO (08:40)
[2022-01-19] MEDS: Docusate Sodium 100 MG CAPSULE PO ×2 (08:40→20:06)
[2022-01-19] MEDS: HYDROmorphone HCl 0.5 MG/0.5 ML SYRINGE 1 MG IVPUSH ×2 (11:01→19:01)
--- NOTE | 2022-01-19 12:30 | PM.PNGS ---
Subjective Subjective Date of Service: 01/19/22 Interval history: tolerating diet well says she had lower quadrant pain overnight she says she may not be ready to go home today good oral intake no fever Physical Exam Vital Signs: Vital Signs: Last Vital Signs Temp 96.6 F L 01/19/22 08:00 Pulse 78 01/19/22 08:00 Resp 18 01/19/22 08:00 BP 134/74 01/19/22 08:00 Pulse Ox 96 01/18/22 23:30 O2 Del Method 01/19/22 08:00 BMI result Body Mass Index 27.1 Const: General: comfortable and no acute distress Resp: Effort & Inspection: normal respiratory effort Cardio: Rate: regular rate GI: Other: states she is tender in the left lower quadrant Palpation (GI): Soft to palpation and not firm Objective Data Active Medications Docusate Sodium (Docusate Sodium 100 Mg Capsule) 100 mg PO BID [facility] Last Admin: 01/19/22 08:40 Dose: 100 mg Documented By: VANNESA Heparin Sodium (Porcine) (Heparin Sodium,Porcine 5,000 Unit/Ml Vial) 5,000 unit SUBCUT Q12H [facility] Last Admin: 01/19/22 05:40 Dose: 5,000 unit Documented By: VERONICA Hydromorphone HCl (Hydromorphone Hcl 0.5 Mg/0.5 Ml Syringe) 1 mg IVPUSH Q4H PRN; Protocol PRN Reason: Pain, Severe (Pain Scale 7-10) Last Admin: 01/19/22 11:01 Dose: 1 mg Documented By: VANNESA Levofloxacin (Levaquin) 750 mg in 150 mls @ 100 mls/hr IV DAILY [facility] Last Infusion: 01/19/22 10:46 Dose: 0 mls/hr Documented By: VANNESA Metronidazole (Flagyl) 500 mg in 100 mls @ 100 mls/hr IV Q8H [facility] Last Infusion: 01/19/22 11:51 Dose: 0 mls/hr Documented By: VANNESA Promethazine HCl 12.5 mg/ (Sodium Chloride) 50.5 mls @ 202 mls/hr IV Q6H PRN PRN Reason: Nausea Last Infusion: 01/16/22 10:15 Dose: 0 mls/hr Documented By: CHERI Lisinopril (Lisinopril 20 Mg Tablet) 20 mg PO DAILY [facility]; Protocol Last Admin: 01/19/22 08:40 Dose: 20 mg Documented By: VANNESA Metoprolol Succinate (Metoprolol Succinate Er 25 Mg Tab.Er.24h) 25 mg PO DAILY [facility]; Protocol Last Admin: 01/19/22 08:40 Dose: 25 mg Documented By: VANNESA Nortriptyline HCl (Nortriptyline Hcl 25 Mg Capsule) 50 mg PO DAILY [facility] Last Admin: 01/19/22 08:39 Dose: 50 mg Documented By: VANNESA Omeprazole (Omeprazole 40 Mg Capsule.Dr) 40 mg PO DAILY@0630 [facility] Last Admin: 01/19/22 05:40 Dose: 40 mg Documented By: VERONICA Pharmacy Consult (Consult Rx Perform Med Rec) 1 each MISCELLANE ONCE PRN PRN Reason: Consult order Polyethylene Glycol (Polyethylene Glycol 3350 17 Gm Powd.Pack) 17 gm PO DAILY [facility] Last Admin: 01/19/22 08:39 Dose: 17 gm Documented By: VANNESA Sodium Chloride (0.9 % Sodium Chloride Flush 3 Ml Syringe) 3 ml IVFLUSH QSHIFT [facility] Last Admin: 01/19/22 08:40 Dose: 3 ml Documented By: VANNESA Sumatriptan Succinate (Sumatriptan Succinate 100 Mg Tablet) 100 mg PO DAILY PRN PRN Reason: migraine Last Admin: 01/15/22 21:55 Dose: 100 mg Documented By: KACEY Labs CBC & Chem 7: 01/15/22 05:52 01/15/22 05:52 Procedures Date of Service Date of Service: 01/19/22 Progress Note: A&P Assessment and plan (1) Sigmoid diverticulitis: Status: Acute Assessment and Plan: actually looks well has never had leukocytosis nor fever multiple CT scans showing minimal inflammatory changes however, subjectively, still has pain and does not feel she is ready to go home today abdomen benign ambulating no problems with oral intake stable vital signs DC home once she is more comfortable Time Spent With Patient Time: Total time managing care of this patient today ____ minutes. Quality Stroke Does the patient have a stroke diagnosis?: No VTE Prior VTE?: No VTE Risk Level:: Medical - moderate - high VTE Device Contraindication: N/A - Device Ordered VTE Drug Contraindication: N/A - Med Ordered
[2022-01-19 15:30] VITALS: BP 125/86; PULSE 86; RESP 17; TEMP 36.6; O2SAT 97
[2022-01-19 19:23] VITALS: BP 126/70; PULSE 79; RESP 18; TEMP 36.6; O2SAT 98
[2022-01-19 23:43] VITALS: BP 132/75; PULSE 76; RESP 18; TEMP 36.3; O2SAT 97
[2022-01-20] MEDS: SUMAtriptan succinate 100 MG TABLET PO ×2 (02:34→23:39)
[2022-01-20] MEDS: metroNIDAZOLE/NS 500 MG/100 ML PIGGYBACK 100 MG IV ×3 (02:34→19:33)
[2022-01-20] MEDS: Heparin Sodium,Porcine 5,000 UNIT/ML VIAL 5000 UNIT SUBCUT ×2 (05:38→17:14)
[2022-01-20] MEDS: Omeprazole 40 MG CAPSULE.DR PO (05:38)
[2022-01-20 07:45] VITALS: BP 135/75; PULSE 77; RESP 18; TEMP 36.8; O2SAT 98
[2022-01-20] MEDS: lisinopriL 20 MG TABLET PO (08:26)
[2022-01-20] MEDS: Nortriptyline HCl 25 MG CAPSULE 50 MG PO (08:26)
[2022-01-20] MEDS: Metoprolol Succinate ER 25 MG TAB.ER.24H PO (08:26)
[2022-01-20] MEDS: Docusate Sodium 100 MG CAPSULE PO ×2 (08:26→19:33)
[2022-01-20] MEDS: levoFLOXacin/D5W 750 MG/150 ML PIGGYBACK 100 MG IV (08:27)
[2022-01-20] MEDS: polyethylene glycoL 3350 17 GM POWD.PACK PO (08:27)
[2022-01-20] MEDS: 0.9 % Sodium Chloride Flush 3 ML SYRINGE IVFLUSH ×3 (08:32→19:34)
[2022-01-20] MEDS: HYDROmorphone HCl 0.5 MG/0.5 ML SYRINGE 1 MG IVPUSH ×2 (09:45→23:51)
[2022-01-20] MEDS: Milk of Magnesia 30 ML ORAL.SUSP PO (11:04)
--- NOTE | 2022-01-20 11:31 | MHC.CM.PN ---
DP home self-care. Family will provide transportation home @ discharge. Per Surgery Patient will not discharge today. She continues with abdominal pain, and is not feeling well. CM will follow for discharge.
--- NOTE | 2022-01-20 11:52 | PM.PNGS ---
Subjective Subjective Date of Service: 01/21/22 Interval history: tolerating diet well some left lower quadrant pain although better says she might go home later on today Physical Exam Vital Signs: Vital Signs: Last Vital Signs Temp 98.3 F 01/20/22 07:45 Pulse 77 01/20/22 07:45 Resp 18 01/20/22 07:45 BP 135/75 01/20/22 07:45 Pulse Ox 98 01/20/22 07:45 O2 Del Method 01/20/22 07:45 BMI result Body Mass Index 27.1 Const: General: comfortable and no acute distress Resp: Effort & Inspection: normal respiratory effort Cardio: Rate: regular rate GI: Other: describes some tenderness on the left lower quadrant Palpation (GI): Soft to palpation, no guarding and not rigid Objective Data Active Medications Docusate Sodium (Docusate Sodium 100 Mg Capsule) 100 mg PO BID [facility] Last Admin: 01/20/22 08:26 Dose: 100 mg Documented By: VANNESA Heparin Sodium (Porcine) (Heparin Sodium,Porcine 5,000 Unit/Ml Vial) 5,000 unit SUBCUT Q12H [facility] Last Admin: 01/20/22 05:38 Dose: 5,000 unit Documented By: VERONICA Hydromorphone HCl (Hydromorphone Hcl 0.5 Mg/0.5 Ml Syringe) 1 mg IVPUSH Q4H PRN; Protocol PRN Reason: Pain, Severe (Pain Scale 7-10) Last Admin: 01/20/22 09:45 Dose: 1 mg Documented By: VANNESA Levofloxacin (Levaquin) 750 mg in 150 mls @ 100 mls/hr IV DAILY [facility] Last Infusion: 01/20/22 11:01 Dose: 0 mls/hr Documented By: VANNESA Metronidazole (Flagyl) 500 mg in 100 mls @ 100 mls/hr IV Q8H [facility] Last Admin: 01/20/22 10:41 Dose: 100 mls/hr Documented By: VANNESA Promethazine HCl 12.5 mg/ (Sodium Chloride) 50.5 mls @ 202 mls/hr IV Q6H PRN PRN Reason: Nausea Last Infusion: 01/16/22 10:15 Dose: 0 mls/hr Documented By: CHERI Lisinopril (Lisinopril 20 Mg Tablet) 20 mg PO DAILY [facility]; Protocol Last Admin: 01/20/22 08:26 Dose: 20 mg Documented By: VANNESA Metoprolol Succinate (Metoprolol Succinate Er 25 Mg Tab.Er.24h) 25 mg PO DAILY [facility]; Protocol Last Admin: 01/20/22 08:26 Dose: 25 mg Documented By: VANNESA Nortriptyline HCl (Nortriptyline Hcl 25 Mg Capsule) 50 mg PO DAILY [facility] Last Admin: 01/20/22 08:26 Dose: 50 mg Documented By: VANNESA Omeprazole (Omeprazole 40 Mg Capsule.Dr) 40 mg PO DAILY@0630 [facility] Last Admin: 01/20/22 05:38 Dose: 40 mg Documented By: VERONICA Pharmacy Consult (Consult Rx Perform Med Rec) 1 each MISCELLANE ONCE PRN PRN Reason: Consult order Polyethylene Glycol (Polyethylene Glycol 3350 17 Gm Powd.Pack) 17 gm PO DAILY [facility] Last Admin: 01/20/22 08:27 Dose: 17 gm Documented By: VANNESA Sodium Chloride (0.9 % Sodium Chloride Flush 3 Ml Syringe) 3 ml IVFLUSH QSHIFT [facility] Last Admin: 01/20/22 08:32 Dose: 3 ml Documented By: VANNESA Sumatriptan Succinate (Sumatriptan Succinate 100 Mg Tablet) 100 mg PO DAILY PRN PRN Reason: migraine Last Admin: 01/20/22 02:34 Dose: 100 mg Documented By: VERONICA Labs CBC & Chem 7: 01/15/22 05:52 01/15/22 05:52 Procedures Date of Service Date of Service: 01/20/22 Progress Note: A&P Assessment and plan (1) Sigmoid diverticulitis: Status: Acute Assessment and Plan: physical exam very benign no fever or leukocytosis abdomen soft has been tolerating regular food CT scan shows very minimal inflammatory changes await patient to feel ready to be discharged clinically has been doing very well as a matter fact Time Spent With Patient Time: Total time managing care of this patient today ____ minutes. Quality Stroke Does the patient have a stroke diagnosis?: No VTE Prior VTE?: No VTE Risk Level:: Medical - moderate - high VTE Device Contraindication: N/A - Device Ordered VTE Drug Contraindication: N/A - Med Ordered
[2022-01-20 23:41] VITALS: BP 133/63; PULSE 73; TEMP 36.4
[2022-01-21] MEDS: metroNIDAZOLE/NS 500 MG/100 ML PIGGYBACK 100 MG IV ×2 (03:58→11:23)
[2022-01-21] MEDS: Heparin Sodium,Porcine 5,000 UNIT/ML VIAL 5000 UNIT SUBCUT (03:58)
[2022-01-21 06:56] VITALS: BP 134/61; PULSE 73; RESP 18; TEMP 36.9; O2SAT 96
[2022-01-21] MEDS: Omeprazole 40 MG CAPSULE.DR PO (07:02)
[2022-01-21] MEDS: Docusate Sodium 100 MG CAPSULE PO (07:40)
[2022-01-21] MEDS: lisinopriL 20 MG TABLET PO (07:40)
[2022-01-21] MEDS: Nortriptyline HCl 25 MG CAPSULE 50 MG PO (07:40)
[2022-01-21] MEDS: Metoprolol Succinate ER 25 MG TAB.ER.24H PO (07:40)
[2022-01-21] MEDS: polyethylene glycoL 3350 17 GM POWD.PACK PO (07:41)
[2022-01-21] MEDS: 0.9 % Sodium Chloride Flush 3 ML SYRINGE IVFLUSH (07:46)
[2022-01-21] MEDS: levoFLOXacin/D5W 750 MG/150 ML PIGGYBACK 100 MG IV (09:34)
--- NOTE | 2022-01-21 09:38 | PM.PNGS ---
Subjective Subjective Date of Service: 01/21/22 Interval history: feels ready to go home says abdl pain better tolerating diet well Physical Exam Vital Signs: Vital Signs: Last Vital Signs Temp 98.4 F 01/21/22 06:56 Pulse 73 01/21/22 06:56 Resp 18 01/21/22 06:56 BP 134/61 01/21/22 06:56 Pulse Ox 96 01/21/22 06:56 O2 Del Method 01/21/22 06:56 BMI result Body Mass Index 27.1 Const: Other: looks well General: comfortable and no acute distress Resp: Effort & Inspection: normal respiratory effort Cardio: Rate: regular rate GI: Other: minimal tenderness left side Palpation (GI): Soft to palpation, not firm, nontender and no guarding Objective Data Active Medications Docusate Sodium (Docusate Sodium 100 Mg Capsule) 100 mg PO BID [facility] Last Admin: 01/21/22 07:40 Dose: 100 mg Documented By: LENORA Heparin Sodium (Porcine) (Heparin Sodium,Porcine 5,000 Unit/Ml Vial) 5,000 unit SUBCUT Q12H [facility] Last Admin: 01/21/22 03:58 Dose: 5,000 unit Documented By: XIMENA Comments: scanner broken, no other available Hydromorphone HCl (Hydromorphone Hcl 0.5 Mg/0.5 Ml Syringe) 1 mg IVPUSH Q4H PRN; Protocol PRN Reason: Pain, Severe (Pain Scale 7-10) Last Admin: 01/20/22 23:51 Dose: 1 mg Documented By: XIMENA Levofloxacin (Levaquin) 750 mg in 150 mls @ 100 mls/hr IV DAILY [facility] Last Infusion: 01/20/22 11:01 Dose: 0 mls/hr Documented By: VANNESA Metronidazole (Flagyl) 500 mg in 100 mls @ 100 mls/hr IV Q8H [facility] Last Infusion: 01/21/22 05:49 Dose: 0 mls/hr Documented By: XIMENA Promethazine HCl 12.5 mg/ (Sodium Chloride) 50.5 mls @ 202 mls/hr IV Q6H PRN PRN Reason: Nausea Last Infusion: 01/20/22 14:04 Dose: 0 mls/hr Documented By: HO.[email or web address] Lisinopril (Lisinopril 20 Mg Tablet) 20 mg PO DAILY [facility]; Protocol Last Admin: 01/21/22 07:40 Dose: 20 mg Documented By: LENORA Metoprolol Succinate (Metoprolol Succinate Er 25 Mg Tab.Er.24h) 25 mg PO DAILY [facility]; Protocol Last Admin: 01/21/22 07:40 Dose: 25 mg Documented By: LENORA Nortriptyline HCl (Nortriptyline Hcl 25 Mg Capsule) 50 mg PO DAILY [facility] Last Admin: 01/21/22 07:40 Dose: 50 mg Documented By: LENORA Omeprazole (Omeprazole 40 Mg Capsule.Dr) 40 mg PO DAILY@0630 [facility] Last Admin: 01/21/22 07:02 Dose: 40 mg Documented By: XIMENA Comments: scanner broken Pharmacy Consult (Consult Rx Perform Med Rec) 1 each MISCELLANE ONCE PRN PRN Reason: Consult order Polyethylene Glycol (Polyethylene Glycol 3350 17 Gm Powd.Pack) 17 gm PO DAILY [facility] Last Admin: 01/21/22 07:41 Dose: 17 gm Documented By: LENORA Sodium Chloride (0.9 % Sodium Chloride Flush 3 Ml Syringe) 3 ml IVFLUSH QSHIFT [facility] Last Admin: 01/21/22 07:46 Dose: 3 ml Documented By: LENORA Sumatriptan Succinate (Sumatriptan Succinate 100 Mg Tablet) 100 mg PO DAILY PRN PRN Reason: migraine Last Admin: 01/20/22 23:39 Dose: 100 mg Documented By: XIMENA Labs CBC & Chem 7: 01/15/22 05:52 01/15/22 05:52 Procedures Date of Service Date of Service: 01/21/22 Progress Note: A&P Assessment and plan (1) Sigmoid diverticulitis: Status: Acute Assessment and Plan: symptoms resolved symptoms likely multifactorial - she has IBS as well and chronic pain obejctive data shows minimal inflammatory changes around sigmoid, no leukocytosis ok to dc home ffup with GI control constipation Time Spent With Patient Time: Total time managing care of this patient today ____ minutes. Quality Stroke Does the patient have a stroke diagnosis?: No VTE Prior VTE?: No VTE Risk Level:: Medical - moderate - high VTE Device Contraindication: N/A - Device Ordered VTE Drug Contraindication: N/A - Med Ordered
--- NOTE | 2022-01-21 10:27 | MHC.CM.PN ---
PATIENT IS DC HOME - SELF CARE RN AWARE OF PLAN.
--- NOTE | 2022-01-24 13:25 | PM.DS ---
DS: Providers Provider Date of Service: 01/21/22 Date of admission: 01/11/22 16:46 Date of discharge: 01/21/22 Primary care physician: Claribel Grissom MD Attending physician on admission: Fritz Veliz Attending physician on discharge: Fritz Veliz DS: Diagnosis Discharge Diagnosis (1) Sigmoid diverticulitis: Status: Acute DS: Summary Hospital Course Hospital Course: HPI ON ADMISSION: 56-year-old female referred for diverticulitis of the sigmoid. She describes left lower quadrant pain since more than a week ago.? She had a CAT scan 2 days ago showing mild inflammatory changes in the sigmoid.? She was started on Bactrim last week.? However, she says that she has persistent pain and in the office, she felt that her pain and tenderness was worse today.? She describes having a fever 2 days ago. She says that was never told in the past she had diverticulitis. She had a colonoscopy in [address] Mendoza. At that time she was noted to have a small tubular adenoma that was removed. There was no mention of diverticulosis on her colonoscopy report. She has been followed by GI for long time because of her constipation. She has been on Linzess. She describes reflux disease and admits to having a long history of right-sided abdominal pain as well. She has diagnosis of IBS. HOSPITAL COURSE: In light of her persistent pain and her recent fever, it was recommended for her to be admitted for IV antibiotics for failure of oral antibiotic treatment.?She overall had a very benign exam.?She was started on IV flagyl/levaquin, clear liquids and IV/PO analgesics as needed. She had a lengthy hospital course due to pain. She didn't have the expected or much improvement with IV antibiotic therapy. Her CT scan was therefore repeated which showed no new changes and only mild inflammatory changes in the sigmoid. She had no leukocytosis during her stay and was afebrile. She remained inpatient until her pain improved and she was more comfortable. She was started on a bowel regimen. She had good bowel function. Her pain gradually improved and she was tolerating a solid diet. She felt ready for discharge. She was discharged to home on 01/21/22 in stable condition on a course of PO levaquin and flagyl and on a bowel regimen of metamucil and colace. She is to follow up with Dr. Veliz in office. She is to follow up with her GI provider. Status at Discharge Functional status at discharge: independent ambulation Overall status at discharge: patient is progressing back to baseline Time Spent with Patient Time attestation: Total time managing care of this patient today ____ minutes. Discharge coordination time: Greater than 30 minutes Quality: Safe Use of Opioids Does Pt have an Active Cancer Diagnosis on the Problem List?: No Quality: Stroke Does the patient have a stroke diagnosis?: No Physical Exam Vital Signs: Vital Signs: Last Vital Signs Temp 98.4 F 01/21/22 06:56 Pulse 73 01/21/22 06:56 Resp 18 01/21/22 06:56 BP 134/61 01/21/22 06:56 Pulse Ox 96 01/21/22 06:56 O2 Del Method 01/21/22 06:56 BMI result Body Mass Index 27.1 Const: General: comfortable, no acute distress and alert Orientation/consciousness: patient oriented x3 GI: Inspection: No distended Palpation (GI): Soft to palpation, Tenderness to palpation present (GI) (mild LLQ), no guarding and not rigid Skin: General skin exam: no rashes or lesions noted Neuro: General: patient oriented x3 Discharge Plan Discharge Anticipated Discharge Date/Time: 01/18/22 12:05 Patient Disposition: Home, Self-Care Discharge Diagnosis: diverticulitis Referrals: Claribel Grissom MD [Primary Care Provider] - 1 Week Fritz Veliz MD [Physician] - 1 Week Discharge Medications: New levofloxacin 750 mg tablet 750 mg PO DAILY Qty: 5 0RF metronidazole 500 mg tablet 500 mg PO TID Qty: 15 0RF docusate sodium [Colace] 100 mg capsule 100 mg PO BID Qty: 60 0RF Metamucil 3.4 gram/5.4 gram powder 1 tbsp PO BID Qty: 660 0RF Rx Instructions: mix into at least 8 oz of water or juice before administering Continued pantoprazole 40 mg tablet,delayed release (DR/EC) 40 mg PO DAILY Qty: 30 6RF aripiprazole 10 mg tablet 1 tab PO QAM PRN (Reason: Agitation) Linzess 72 mcg capsule 72 mcg PO QAM PRN (Reason: Constipation) lisinopril 20 mg tablet 20 mg PO DAILY zolpidem 12.5 mg tablet,ext release multiphase 12.5 mg PO BEDTIME PRN (Reason: Insomnia) sumatriptan succinate 100 mg tablet 100 mg PO DAILY MRX1 nortriptyline 50 mg capsule 100 mg PO QPM Emgality Pen 120 mg/mL pen injector 120 mg subcut Q4W metoprolol tartrate 25 mg tablet 25 mg PO BID dicyclomine 20 mg tablet 40 mg PO QID 30 Days Qty: 240 3RF Discharge Orders: Discharge Order (Routine); Ordered 01/21/22 Ordered By: Fritz Veliz Diet: low residue diet Activity on Discharge: As tolerated Stand Alone Forms: Patient Portal Discharge page Care Plan Goals: Resolution of pain. Return to baseline health. Health Concerns: IBS, GERD diverticulitis Plan of Treatment: IV antibiotics transitioned to PO antibiotics F/u in office with Dr. Veliz for possible sigmoid resection Assessment: Improved Discharge Date/Time: 01/21/22 13:22
== END 2022-01-21 13:22 | disposition home or self-care (01) | DRG 244 ==
LOC: HO.ED 16:53 → HO.EDOVER 17:17 → HO.S3 01-12 16:35
PROVIDERS: Emergency Medicine Emergency Medical Services; Physician Assistant; Surgery; Admitting Provider Surgery; Emergency Provider Internal Medicine; PCP Internal Medicine; Visit Provider Surgery
DX: K57.32 Diverticulitis of large intestine without perforation or abscess without bleeding (principal); G89.29 Other chronic pain; K21.9 Gastro-esophageal reflux disease without esophagitis; K58.1 Irritable bowel syndrome with constipation; Z20.822 Contact with and (suspected) exposure to COVID-19; Z88.0 Allergy status to penicillin; Z88.8 Allergy status to other drugs, medicaments and biological substances; Z79.899 Other long term (current) drug therapy
CPT/HCPCS: 36415; 74177; 80048; 80076; 81001; 83605; 83690; 85025; 85027; 87040; 87635; 99202; 99285; J0131; J1170; J1885; J1956; J2270; J2550; Q9967

== ENCOUNTER → 2022-01-26 12:27 | Outpatient (BNVA) | payer MEDICAID, SELFPAY | PROVIDERS: PCP Internal Medicine; Visit Provider Surgery | DX: K57.32 Diverticulitis of large intestine without perforation or abscess without bleeding (principal) | CPT/HCPCS: 99212 ==

== ENCOUNTER 2022-01-31 08:41 | Outpatient (REF) | payer MEDICAID, SELFPAY ==
[2022-01-31 11:14] LABS: Blood Urea Nitrogen 13 mg/dL (9-16); C Reactive Protein < 0.10 mg/dL (< or = 0.50); Estimated Glomerular Filt Rate > 60
== END 2022-01-31 08:42 | disposition home or self-care (01) ==
LOC: HO.LAB 08:41
PROVIDERS: PCP Internal Medicine; Visit Provider Nurse Practitioner
DX: R10.30 Lower abdominal pain, unspecified (principal); R19.7 Diarrhea, unspecified; R10.13 Epigastric pain; R19.00 Intra-abdominal and pelvic swelling, mass and lump, unspecified site; K57.92 Diverticulitis of intestine, part unspecified, without perforation or abscess without bleeding
CPT/HCPCS: 36415; 82565; 84520; 86140; 99212

== ENCOUNTER 2022-02-01 09:04 | Outpatient (REF) | payer MEDICAID, SELFPAY ==
--- NOTE | ~2022-02-01 | MM_ITS ---
EXAMINATION: MM SCREENING DIGITAL BREAST TOMOSYNTHESIS, BILATERAL CLINICAL INFORMATION: Screening. Asymptomatic. The lifetime risk of breast cancer based on the Tyrer-Cuzick Model is 9.1%. COMPARISON: Mammography: January 26, 2021 and studies dating back to December 30, 2014 TECHNIQUE: Digital breast tomosynthesis is performed in both the craniocaudal and mediolateral oblique views along with computer-aided detection (CAD). Synthesized 2D images are generated from the tomosynthesis. FINDINGS: There are scattered areas of fibroglandular density (ACR BI-RADS breast composition Category b). There are no significant masses, abnormal calcifications, or other abnormalities. MM/MM tomosynthesis screening BI IMPRESSION: No significant changes from prior exam. ASSESSMENT: BI-RADS 1: Negative RECOMMENDATION: Routine annual mammography screening. This patient's information was entered into a reminder system with a target due date for their next mammogram.
== END 2022-02-01 09:05 | disposition home or self-care (01) ==
LOC: HO.MAMMO 09:04
PROVIDERS: PCP Internal Medicine; Visit Provider Internal Medicine
DX: Z12.31 Encounter for screening mammogram for malignant neoplasm of breast (principal)
CPT/HCPCS: 77063; 77067

== ENCOUNTER 2022-02-21 12:12 | Emergency (ER) | payer MEDICAID, SELFPAY ==
--- NOTE | ~2022-02-21 | CT_ITS ---
EXAMINATION: CT abdomen pelvis wo IV con CLINICAL INFORMATION: Reason for Exam LLQ pain. Diverticulitits COMPARISON: Prior CT scan from January 2022 TECHNIQUE: Multidetector volumetric imaging was performed from the superior aspect of the liver through the pubic symphysis , noncontrasted CT. Sagittal and coronal reformatted images were obtained on the technologist's workstation. This CT examination was performed using dose optimization techniques as appropriate, variously including the following: *Automated exposure control *Adjustment of mA and/or kV according to patient size (this includes techniques or standardized protocols for targeted exams where dose is matched to indication/reason for exam; i.e. extremities or head) *Use of iterative reconstruction technique DLP: 580 mGy-cm FINDINGS: LOWER THORAX: Included lung bases are clear. HEPATOBILIARY: No focal hepatic lesions. No biliary ductal dilatation. GALLBLADDER: Gallbladder unremarkable. SPLEEN: Spleen is normal in size. PANCREAS: No focal mass or ductal dilatation. STOMACH AND GASTROINTESTINAL TRACT: Stomach is grossly unremarkable. There is diverticulosis of the sigmoid colon, very mild diverticulitis, fat stranding around the sigmoid colon left lower quadrant, no evidence of loculated the fluid collection, abscess or other complication. The process is very mild. No CT evidence of appendicitis. ADRENALS: No adrenal nodules. KIDNEYS/URETERS: Redemonstration of a cyst in the left kidney middle pole 1 cm unchanged from prior CT of January 2022, this is a simple cyst Bosniak class I, no follow-up is required. No kidney stone or hydronephrosis. Perinephric fat are clear. URINARY BLADDER: Urinary bladder is decompressed unopacified. PELVIC VISCERA: Unremarkable PERITONEUM: No free air or fluid. LYMPH NODES: No lymphadenopathy. VASCULAR:Abdominal aorta normal in size, no aneurysm found. BONES, ABDOMINAL WALL AND SOFT TISSUES: Age-appropriate changes of the spine and skeletal system, no destructive osteolytic or osteosclerotic bone lesion found CT/CT abdomen pelvis wo IV con IMPRESSION: * Very mild diverticulitis of the sigmoid colon left lower quadrant, no evidence of loculated fluid collection, abscess or other complication. The process is very mild. Other noncritical findings unchanged
[2022-02-21 13:38] VITALS: BP 153/81; PULSE 74; RESP 18; TEMP 36.7; O2SAT 99; BMI 27.1
--- NOTE | 2022-02-21 13:40 | ED.GENADULT ---
HPI - General Adult General Chief complaint: Abdominal Pain Stated complaint: Diverticulitis sent by gastro Time Seen by Provider: 02/21/22 19:19 Related Data Home Medications Medication Instructions Recorded Confirmed galcanezumab-gnlm 120 mg/mL 120 mg subcut Q4W 11/25/21 01/26/22 subcutaneous pen injector (Emgality Pen) lisinopril 20 mg tablet 20 mg PO DAILY 11/25/21 01/26/22 metoprolol tartrate 25 mg tablet 25 mg PO BID 11/25/21 01/26/22 nortriptyline 50 mg capsule 100 mg PO QPM 11/25/21 01/26/22 sumatriptan succinate 100 mg tablet 100 mg PO DAILY MRX1 migraine 11/25/21 01/26/22 zolpidem 12.5 mg tablet,extended 12.5 mg PO BEDTIME PRN Insomnia 11/25/21 01/26/22 release,multiphase aripiprazole 10 mg tablet 1 tab PO QAM PRN Agitation 01/11/22 01/26/22 Previous Rx's Medication Instructions Recorded pantoprazole 40 mg tablet,delayed 40 mg PO DAILY #30 tabs 10/11/21 release dicyclomine 20 mg tablet 40 mg PO QID 30 days #240 tabs 01/04/22 docusate sodium 100 mg capsule 100 mg PO BID #60 caps 01/21/22 (Colace) psyllium husk 3.4 gram/5.4 gram 1 tbsp PO BID #660 grams 01/21/22 oral powder (Metamucil) Lactobacillus rhamnosus GG 10 1 cap PO DAILY #30 caps 01/31/22 billion cell capsule (Culturelle) ciprofloxacin HCl 500 mg tablet 500 mg PO BID 10 days #20 tabs 02/21/22 (Cipro) linaclotide 72 mcg capsule 72 mcg PO QAM #30 caps 02/21/22 (Linzess) metronidazole 500 mg tablet 500 mg PO TID 10 days #30 tabs 02/21/22 ondansetron 4 mg disintegrating 4 mg PO TID PRN nausea and 02/21/22 tablet vomiting 5 days #10 tabs Allergies Allergy/AdvReac Type Severity Reaction Status Date / Time Penicillins [PENICILLINS] Allergy Intermediate HIVES/SWELL Verified 02/21/22 13:37 ING bupropion [From Wellbutrin] Allergy hives, Verified 02/21/22 13:37 swelling PMFSH Past Medical History Medical History Acute diverticulitis Constipation GERD (gastroesophageal reflux disease) IBS (irritable bowel syndrome) Sigmoid diverticulitis Surgical History History of esophagogastroduodenoscopy (EGD) History of intestinal surgery History of partial hysterectomy (~09/2006) Hx of colonoscopy Hx of hemorrhoidectomy Family History Family History Father Cancer HTN (hypertension) Mother HTN (hypertension) Hyperthyroidism Migraine headache Maternal Grandmother History of breast cancer Paternal Grandmother History of breast cancer Family/Other Colon cancer Paternal Aunt Ovarian cancer Social History Social History Household Members: None Housing: Apartment Do you presently have visiting nurse or other home services: No Alcohol intake: current Alcohol intake frequency: does not drink Patient Tobacco Use Status: Never used Tobacco Advance Directives: No Advance Directives Information Provided: Yes service: No Current occupational status: disabled Physical Exam ED Vital Signs: Vital Signs - 24 hr 02/21/22 13:38 Temperature 98.0 F Pulse Rate 74 Respiratory Rate 18 Blood Pressure 153/81 H Pulse Oximetry 99 Oxygen Delivery Method Room Air BMI result Body Mass Index 27.1 Course Course Course Narrative: RME: 56 yold female with pmh of diverituclitis presents to the ED for llq pain with nausea. 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 Vtial signs stables. labs and abdominal CT scan ordered Medical Decision Making Lab Data 02/21/22 13:47 02/21/22 13:47 Labs: Lab Results 02/21/22 02/21/22 02/21/22 Range/Units 13:47 13:47 13:47 WBC 6.3 (4.8-10.8) X10*3/uL RBC 4.67 (4.20-5.50) X10*6/uL Hgb 12.4 (12.0-16.0) g/dl Hct 39.0 (37.0-47.0) % MCV 83.5 (80.0-98.0) fL MCH 26.6 L (27.0-33.0) pg MCHC 31.8 (31.0-35.0) g/dl RDW 14.2 (11.0-16.0) % Plt Count 320 (160-400) X10*3/uL MPV 9.4 (9.4-12.3) fL Immature Gran % (Auto) 0.3 (0.0-0.4) % Neut % (Auto) 41.5 L (45-73) % Lymph % (Auto) 49.4 H (20-40) % [place] % (Auto) 6.9 (2-11) % Eos % (Auto) 1.3 (0-4) % Baso % (Auto) 0.6 (0-2) % Lymph # (Auto) 3.1 (1.2-4.9) X10*3/uL [place] # (Auto) 0.4 (0.1-1.2) X10*3/uL Eos # (Auto) 0.1 (0.0-0.4) X10*3/uL Baso # (Auto) 0.0 (0.0-0.2) X10*3/uL Abs Immat Gran (auto) 0.02 (0.00-0.03) X10*3/uL Absolute Neuts (auto) 2.6 (2.0-8.3) x10*3/uL Absolute Nucleated RBC 0.000 (0.0-0.012) X10*3/uL Nucleated RBC % (auto) 0.0 (0.0-0.2) /100WBC PT 10.8 (10.0-13.1) SEC INR 0.9 (0.9-1.1) APTT 33.1 (26.0-36.4) SEC Sodium 138 (135-145) mmol/L Potassium 4.6 (3.3-5.1) mmol/L Chloride 104 (96-108) mmol/L Carbon Dioxide 26 (22-29) mmol/L Anion Gap 13 (12-20) BUN 12 (9-16) mg/dL Creatinine 0.76 (0.5-1.4) mg/dL Estim Creat Clear Calc 79.2 Estimated GFR > 60 Random Glucose 89 (60-115) mg/dL Calcium 9.9 D (8.4-10.2) mg/dL Total Bilirubin 0.4 (0.0-1.0) mg/dL AST 19 (5-31) U/L ALT 19 (0-31) U/L Alkaline Phosphatase 66 (39-117) U/L Total Protein 7.1 (6.5-8.0) g/dL Albumin 4.3 (3.5-5.0) g/dL Discharge Plan Discharge Clinical Impression: Diverticulitis Patient Disposition: Home, Self-Care Instructions: Diverticulitis (ED) Prescriptions: New ciprofloxacin HCl [Cipro] 500 mg tablet 500 mg PO BID 10 Days Qty: 20 0RF metronidazole 500 mg tablet 500 mg PO TID 10 Days Qty: 30 0RF ondansetron 4 mg tablet,disintegrating 4 mg PO TID PRN (Reason: nausea and vomiting) 5 Days Qty: 10 0RF No Action pantoprazole 40 mg tablet,delayed release (DR/EC) 40 mg PO DAILY Qty: 30 6RF Linzess 72 mcg capsule 72 mcg PO QAM Qty: 30 0RF aripiprazole 10 mg tablet 1 tab PO QAM PRN (Reason: Agitation) docusate sodium [Colace] 100 mg capsule 100 mg PO BID Qty: 60 0RF Metamucil 3.4 gram/5.4 gram powder 1 tbsp PO BID Qty: 660 0RF Rx Instructions: mix into at least 8 oz of water or juice before administering lisinopril 20 mg tablet 20 mg PO DAILY zolpidem 12.5 mg tablet,ext release multiphase 12.5 mg PO BEDTIME PRN (Reason: Insomnia) sumatriptan succinate 100 mg tablet 100 mg PO DAILY MRX1 nortriptyline 50 mg capsule 100 mg PO QPM Emgality Pen 120 mg/mL pen injector 120 mg subcut Q4W metoprolol tartrate 25 mg tablet 25 mg PO BID dicyclomine 20 mg tablet 40 mg PO QID 30 Days Qty: 240 3RF Culturelle 10 billion cell capsule 1 cap PO DAILY Qty: 30 3RF Referrals: Rosendo Elias [Physician] - 02/23/22
[2022-02-21 13:54] LABS: MANUAL DIFF FLAG NO
[2022-02-21 14:01] LABS: Basophils Percent Auto 0.6 % (0-2); Eosinophils Absolute Auto 0.1 X10*3/uL (0.0-0.4); Eosinophils Percent Auto 1.3 % (0-4); Hemoglobin 12.4 g/dl (12.0-16.0); Imm Gran Abs Auto 0.02 X10*3/uL (0.00-0.03); Imm Gran Pct Auto 0.3 % (0.0-0.4); Lymphocytes Absolute Auto 3.1 X10*3/uL (1.2-4.9); Lymphocytes Percent Auto 49.4 % (20-40); Mean Corpuscular HGB Conc 31.8 g/dl (31.0-35.0); Mean Corpuscular Hemoglobin 26.6 pg (27.0-33.0); Mean Corpuscular Volume 83.5 fL (80.0-98.0); Mean Platelet Volume 9.4 fL (9.4-12.3); Monocytes Absolute Auto 0.4 X10*3/uL (0.1-1.2); Monocytes Percent Auto 6.9 % (2-11); Neutrophils Absolute Auto 2.6 x10*3/uL (2.0-8.3); Neutrophils Percent Auto 41.5 % (45-73); Platelet Count 320 X10*3/uL (160-400); Red Blood Count 4.67 X10*6/uL (4.20-5.50); Red Cell Distribution Width 14.2 % (11.0-16.0); White Blood Count 6.3 X10*3/uL (4.8-10.8)
[2022-02-21 14:07] LABS: INTERNATIONAL NORM RATIO 0.9 (0.9-1.1); Prothrombin Time 10.8 SEC (10.0-13.1)
[2022-02-21 14:10] LABS: Partial Thromboplastin Time 33.1 SEC (26.0-36.4)
[2022-02-21 14:11] LABS: Alanine Aminotransferase 19 U/L (0-31); Albumin Level 4.3 g/dL (3.5-5.0); Alkaline Phosphatase 66 U/L (39-117); Anion Gap 13 (12-20); Aspartate Amino Transferase 19 U/L (5-31); Bilirubin Total 0.4 mg/dL (0.0-1.0); Blood Urea Nitrogen 12 mg/dL (9-16); Calcium 9.9 mg/dL (8.4-10.2); Carbon Dioxide 26 mmol/L (22-29); Chloride 104 mmol/L (96-108); Creatinine Clr Calc Pharmacy 79.2; Estimated Glomerular Filt Rate > 60; Glucose Random 89 mg/dL (60-115); Potassium 4.6 mmol/L (3.3-5.1); Sodium 138 mmol/L (135-145); Total Protein 7.1 g/dL (6.5-8.0)
--- NOTE | 2022-02-21 19:33 | ED.ABDPAIN ---
HPI - Abdominal Pain General Chief Complaint: Abdominal Pain Stated Complaint: Diverticulitis sent by gastro Time Seen by Provider: 02/21/22 19:19 History of Present Illness HPI narrative: Patient is a 56-year-old female presents today with having abdominal pain. History of diverticulitis in the past. Having pain in left lower quadrant has been ongoing weeks. There is no fever no chills. No chest pain or shortness Breath. Positive nausea. No vomiting. Patient from home. No pain on urination. No dizziness. Positive allergy to penicillin caused her a severe itch Related Data Home Medications Medication Instructions Recorded Confirmed galcanezumab-gnlm 120 mg/mL 120 mg subcut Q4W 11/25/21 01/26/22 subcutaneous pen injector (Emgality Pen) lisinopril 20 mg tablet 20 mg PO DAILY 11/25/21 01/26/22 metoprolol tartrate 25 mg tablet 25 mg PO BID 11/25/21 01/26/22 nortriptyline 50 mg capsule 100 mg PO QPM 11/25/21 01/26/22 sumatriptan succinate 100 mg tablet 100 mg PO DAILY MRX1 migraine 11/25/21 01/26/22 zolpidem 12.5 mg tablet,extended 12.5 mg PO BEDTIME PRN Insomnia 11/25/21 01/26/22 release,multiphase aripiprazole 10 mg tablet 1 tab PO QAM PRN Agitation 01/11/22 01/26/22 Previous Rx's Medication Instructions Recorded pantoprazole 40 mg tablet,delayed 40 mg PO DAILY #30 tabs 10/11/21 release dicyclomine 20 mg tablet 40 mg PO QID 30 days #240 tabs 01/04/22 docusate sodium 100 mg capsule 100 mg PO BID #60 caps 01/21/22 (Colace) psyllium husk 3.4 gram/5.4 gram 1 tbsp PO BID #660 grams 01/21/22 oral powder (Metamucil) Lactobacillus rhamnosus GG 10 1 cap PO DAILY #30 caps 01/31/22 billion cell capsule (Culturelle) ciprofloxacin HCl 500 mg tablet 500 mg PO BID 10 days #20 tabs 02/21/22 (Cipro) linaclotide 72 mcg capsule 72 mcg PO QAM #30 caps 02/21/22 (Linzess) metronidazole 500 mg tablet 500 mg PO TID 10 days #30 tabs 02/21/22 ondansetron 4 mg disintegrating 4 mg PO TID PRN nausea and 02/21/22 tablet vomiting 5 days #10 tabs Allergies Allergy/AdvReac Type Severity Reaction Status Date / Time Penicillins [PENICILLINS] Allergy Intermediate HIVES/SWELL Verified 02/21/22 13:37 ING bupropion [From Wellbutrin] Allergy hives, Verified 02/21/22 13:37 swelling Review of Systems Review of Systems positive abdominal pain. Positive nausea Yes all other systems are reviewed and are negative PENDING SALE TO [facility] Past Medical History Attestation statement: The following information was validated with the patient. Medical History Acute diverticulitis Constipation GERD (gastroesophageal reflux disease) IBS (irritable bowel syndrome) Sigmoid diverticulitis Surgical History History of esophagogastroduodenoscopy (EGD) History of intestinal surgery History of partial hysterectomy (~09/2006) Hx of colonoscopy Hx of hemorrhoidectomy Family History Family History Father Cancer HTN (hypertension) Mother HTN (hypertension) Hyperthyroidism Migraine headache Maternal Grandmother History of breast cancer Paternal Grandmother History of breast cancer Family/Other Colon cancer Paternal Aunt Ovarian cancer Social History Social History Household Members: None Housing: Apartment Do you presently have visiting nurse or other home services: No Alcohol intake: current Alcohol intake frequency: does not drink Patient Tobacco Use Status: Never used Tobacco service: No Current occupational status: disabled Physical Exam ED Vital Signs: Vital Signs - 24 hr 02/21/22 13:38 Temperature 98.0 F Pulse Rate 74 Respiratory Rate 18 Blood Pressure 153/81 H Pulse Oximetry 99 Oxygen Delivery Method Room Air BMI result Body Mass Index 27.1 Appearance: Alert. Oriented X3. No acute distress. Eyes: Pupils equal, round and reactive to light. ENT: Pharynx normal. Neck: Normal inspection. Neck supple. No lymph nodes noted. No crepitus CVS: Normal heart rate and rhythm. Pulses normal. Normal S1 and S2 Respiratory: No respiratory distress. Breath sounds normal. No Wheezing. No rales Abdomen: Soft and nontender. No rigidity. No distention. good BS x4 Skin: Skin warm and dry. Normal skin color. Normal skin turgor. Extremities: No lower extremity edema. Neurovascular intact to all extremities. No Lacerations. No Rash Neuro: Oriented X 3. No motor deficit. No sensory deficit. Moving all extermities. No slurred speech Medical Decision Making Differential Diagnosis positive left lower quadrant abdominal pain. No fever no chills. Differential diagnosis includes diverticulitis, kidney stone, urinary tract infection. Patient's CT scan showed mild diverticulitis. No kidney stone. No obstruction or abscess no perforation. Patient has a severe allergy to penicillin which gets extreme rash. Swelling. Decided to give patient Cipro Flagyl. First dose given in the emergency department. In stable condition will discharge home. Follow up on an outpatient basis. Lab Data MDM Lab Attestation statement: I reviewed the patient's lab results. 02/21/22 13:47 02/21/22 13:47 Labs: Lab Results 02/21/22 02/21/22 02/21/22 Range/Units 13:47 13:47 13:47 WBC 6.3 (4.8-10.8) X10*3/uL RBC 4.67 (4.20-5.50) X10*6/uL Hgb 12.4 (12.0-16.0) g/dl Hct 39.0 (37.0-47.0) % MCV 83.5 (80.0-98.0) fL MCH 26.6 L (27.0-33.0) pg MCHC 31.8 (31.0-35.0) g/dl RDW 14.2 (11.0-16.0) % Plt Count 320 (160-400) X10*3/uL MPV 9.4 (9.4-12.3) fL Immature Gran % (Auto) 0.3 (0.0-0.4) % Neut % (Auto) 41.5 L (45-73) % Lymph % (Auto) 49.4 H (20-40) % [place] % (Auto) 6.9 (2-11) % Eos % (Auto) 1.3 (0-4) % Baso % (Auto) 0.6 (0-2) % Lymph # (Auto) 3.1 (1.2-4.9) X10*3/uL [place] # (Auto) 0.4 (0.1-1.2) X10*3/uL Eos # (Auto) 0.1 (0.0-0.4) X10*3/uL Baso # (Auto) 0.0 (0.0-0.2) X10*3/uL Abs Immat Gran (auto) 0.02 (0.00-0.03) X10*3/uL Absolute Neuts (auto) 2.6 (2.0-8.3) x10*3/uL Absolute Nucleated RBC 0.000 (0.0-0.012) X10*3/uL Nucleated RBC % (auto) 0.0 (0.0-0.2) /100WBC PT 10.8 (10.0-13.1) SEC INR 0.9 (0.9-1.1) APTT 33.1 (26.0-36.4) SEC Sodium 138 (135-145) mmol/L Potassium 4.6 (3.3-5.1) mmol/L Chloride 104 (96-108) mmol/L Carbon Dioxide 26 (22-29) mmol/L Anion Gap 13 (12-20) BUN 12 (9-16) mg/dL Creatinine 0.76 (0.5-1.4) mg/dL Estim Creat Clear Calc 79.2 Estimated GFR > 60 Random Glucose 89 (60-115) mg/dL Calcium 9.9 D (8.4-10.2) mg/dL Total Bilirubin 0.4 (0.0-1.0) mg/dL AST 19 (5-31) U/L ALT 19 (0-31) U/L Alkaline Phosphatase 66 (39-117) U/L Total Protein 7.1 (6.5-8.0) g/dL Albumin 4.3 (3.5-5.0) g/dL External Record Review External record reviewed: Inpatient record Discharge Plan Discharge Clinical Impression: Diverticulitis Patient Disposition: Home, Self-Care Instructions: Diverticulitis (ED) Prescriptions: New ciprofloxacin HCl [Cipro] 500 mg tablet 500 mg PO BID 10 Days Qty: 20 0RF metronidazole 500 mg tablet 500 mg PO TID 10 Days Qty: 30 0RF ondansetron 4 mg tablet,disintegrating 4 mg PO TID PRN (Reason: nausea and vomiting) 5 Days Qty: 10 0RF No Action pantoprazole 40 mg tablet,delayed release (DR/EC) 40 mg PO DAILY Qty: 30 6RF Linzess 72 mcg capsule 72 mcg PO QAM Qty: 30 0RF aripiprazole 10 mg tablet 1 tab PO QAM PRN (Reason: Agitation) docusate sodium [Colace] 100 mg capsule 100 mg PO BID Qty: 60 0RF Metamucil 3.4 gram/5.4 gram powder 1 tbsp PO BID Qty: 660 0RF Rx Instructions: mix into at least 8 oz of water or juice before administering lisinopril 20 mg tablet 20 mg PO DAILY zolpidem 12.5 mg tablet,ext release multiphase 12.5 mg PO BEDTIME PRN (Reason: Insomnia) sumatriptan succinate 100 mg tablet 100 mg PO DAILY MRX1 nortriptyline 50 mg capsule 100 mg PO QPM Emgality Pen 120 mg/mL pen injector 120 mg subcut Q4W metoprolol tartrate 25 mg tablet 25 mg PO BID dicyclomine 20 mg tablet 40 mg PO QID 30 Days Qty: 240 3RF Culturelle 10 billion cell capsule 1 cap PO DAILY Qty: 30 3RF Referrals: Rosendo Elias [Physician] - 02/23/22
[2022-02-21 19:48] VITALS: BP 142/84; PULSE 74; RESP 18; O2SAT 97
[2022-02-21] MEDS: levoFLOXacin 500 MG TABLET PO (19:48)
[2022-02-21] MEDS: metroNIDAZOLE 500 MG TABLET PO (19:48)
--- NOTE | 2022-02-21 19:52 | PC.NURSE ---
pt medicated per provider order, d/c reviewed with licensed staff mft at bedside.
== END 2022-02-21 19:52 | disposition home or self-care (01) ==
PROVIDERS: Physician Assistant; Emergency Provider Emergency Medicine Emergency Medical Services; PCP Internal Medicine
DX: K57.32 Diverticulitis of large intestine without perforation or abscess without bleeding (principal); R10.9 Unspecified abdominal pain; Z79.899 Other long term (current) drug therapy
CPT/HCPCS: 36415; 74176; 80053; 85025; 85610; 85730; 99283; 99284

== ENCOUNTER 2022-02-28 15:09 | Outpatient (REF) | payer MEDICAID, SELFPAY | END 2022-02-28 15:10 | disposition home or self-care (01) | LOC: HO.LAB 15:09 | PROVIDERS: Visit Provider Nurse Practitioner | DX: R10.32 Left lower quadrant pain (principal); R11.0 Nausea; R19.7 Diarrhea, unspecified | CPT/HCPCS: 99212 ==

== ENCOUNTER → 2022-03-02 09:35 | Outpatient (BNVA) | payer MEDICAID, SELFPAY | PROVIDERS: PCP Internal Medicine; Visit Provider Nurse Practitioner Family | DX: N28.1 Cyst of kidney, acquired (principal) | CPT/HCPCS: 99202 ==

== ENCOUNTER 2022-03-03 08:53 | Outpatient (REF) | payer MEDICAID, SELFPAY ==
[2022-03-03 09:55] LABS: CDiff Gene PCR NEGATIVE (Negative)
[2022-03-10 21:57] LABS: Calprotectin, Fecal 17 mcg/g
== END 2022-03-03 08:54 | disposition home or self-care (01) ==
LOC: HO.LNP 08:53
PROVIDERS: Visit Provider Nurse Practitioner
DX: R19.7 Diarrhea, unspecified (principal); R10.30 Lower abdominal pain, unspecified
CPT/HCPCS: 83993; 87493; 87507

== ENCOUNTER 2022-03-13 08:24 | Outpatient (REF) | payer MEDICAID, SELFPAY ==
[2022-03-13 09:57] LABS: C Reactive Protein 0.37 mg/dL (< or = 0.50)
== END 2022-03-13 08:25 | disposition home or self-care (01) ==
LOC: HO.LAB 08:24
PROVIDERS: PCP Internal Medicine; Visit Provider Nurse Practitioner
DX: R19.7 Diarrhea, unspecified (principal)
CPT/HCPCS: 36415; 86140

== ENCOUNTER 2022-03-17 10:55 | Outpatient (REF) | payer MEDICAID, SELFPAY | END 2022-03-17 10:56 | disposition home or self-care (01) | LOC: HO.LAB 10:55 | PROVIDERS: PCP Internal Medicine; Visit Provider Nurse Practitioner | DX: K57.92 Diverticulitis of intestine, part unspecified, without perforation or abscess without bleeding (principal); K58.9 Irritable bowel syndrome, unspecified; K21.9 Gastro-esophageal reflux disease without esophagitis | CPT/HCPCS: 99212 ==

== ENCOUNTER → 2022-03-31 09:14 | Outpatient (BNVA) | payer MEDICAID, SELFPAY | PROVIDERS: PCP Internal Medicine; Visit Provider Nurse Practitioner | DX: K58.0 Irritable bowel syndrome with diarrhea (principal); R10.30 Lower abdominal pain, unspecified; K21.9 Gastro-esophageal reflux disease without esophagitis; R10.2 Pelvic and perineal pain | CPT/HCPCS: 99212 ==

== ENCOUNTER → 2022-04-25 15:13 | Outpatient (BNVA) | payer MEDICAID, SELFPAY | PROVIDERS: PCP Internal Medicine; Referring Provider Internal Medicine; Visit Provider Nurse Practitioner | DX: K58.0 Irritable bowel syndrome with diarrhea (principal); K21.9 Gastro-esophageal reflux disease without esophagitis | CPT/HCPCS: 99212 ==

== ENCOUNTER 2022-05-10 10:00 | Day surgery (SDC) | payer MEDICAID, SELFPAY ==
[2022-05-05 14:01] VITALS: BMI 29.0
--- NOTE | 2022-05-10 09:30 | P.CONAN_ITS ---
[facility] Active Problems Active Problems: All Active Problems (Updated 04/04/22 @ 17:28 by FERNANDO Stuart) Irritable bowel syndrome with diarrhea (Acute) Renal cyst (Acute) Acute diverticulitis (Acute) Diverticulitis (Acute) Encounter to discuss test results (Acute) Abdominal mass (Acute) Pelvic pain in female (Acute) Abdominal pain (Acute) Encounter for annual routine gynecological examination (Acute) Lower abdominal pain (Acute) Abdominal cramping (Acute) Epigastric pain (Acute) GERD (gastroesophageal reflux disease) (Acute) Past Medical History Medical History (Updated 04/04/22 @ 17:28 by FERNANDO Stuart) Acute diverticulitis Chronic idiopathic constipation Constipation Diarrhea GERD (gastroesophageal reflux disease) Sigmoid diverticulitis Family History Family History Father Cancer HTN (hypertension) Mother HTN (hypertension) Hyperthyroidism Migraine headache Maternal Grandmother History of breast cancer Paternal Grandmother History of breast cancer Family/Other Colon cancer Paternal Aunt Ovarian cancer Family history of problems with anesthesia: No Surgical History Surgical History History of esophagogastroduodenoscopy (EGD) History of intestinal surgery History of partial hysterectomy (~09/2006) Hx of colonoscopy Hx of hemorrhoidectomy History of Problems with Anesthesia: No Social History Social History Household Members: None Housing: Apartment Do you presently have visiting nurse or other home services: No Alcohol intake: current Alcohol intake frequency: does not drink Patient Tobacco Use Status: Never used Tobacco service: No Current occupational status: disabled Meds Allergies Allergy/AdvReac Type Severity Reaction Status Date / Time Penicillins [PENICILLINS] Allergy Intermediate HIVES/SWELL Verified 04/25/22 15:21 ING bupropion [From Wellbutrin] Allergy hives, Verified 04/25/22 15:21 swelling Home Medications Medication Instructions Recorded Confirmed Last Taken Type galcanezumab-gnlm 120 mg/mL 120 mg subcut Q4W 11/25/21 03/02/22 12/21/21 History subcutaneous pen injector (Emgality Pen) lisinopril 20 mg tablet 20 mg PO DAILY 11/25/21 03/02/22 01/10/22 History metoprolol tartrate 25 mg tablet 25 mg PO BID 11/25/21 03/02/22 01/10/22 History nortriptyline 50 mg capsule 100 mg PO QPM 11/25/21 03/02/22 01/10/22 History sumatriptan succinate 100 mg tablet 100 mg PO DAILY MRX1 migraine 11/25/21 03/02/22 01/11/22 History zolpidem 12.5 mg tablet,extended 12.5 mg PO BEDTIME PRN Insomnia 11/25/21 03/02/22 Unknown History release,multiphase aripiprazole 15 mg tablet 15 mg PO QAM 03/31/22 Unknown History Exam Exam Date and Time: May 10, 2022 09 Height,Weight and Vital Signs: Height 5 ft 4 in Weight 76.657 kg Airway Mallampati Class: II TM Dist: >3cm Neck ROM: Full Heart: rrr Lungs: cta Assessment and Plan Assessment Anesthesia Assessment: Anesthesia Plan Discussed and Chart Reviewed Final Anesthetic Review Family History of Problems with Anesthesia: No History of Problems with Anesthesia: No NPO: Yes ASA Class: II Final Preanesthetic Review: No Changes in Pt Med Stat, Meds/Allgs Chart Reviewed and Consent Obtained/Reviewed Patient Risk: Intermediate Procedure Risk: Intermediate Anesthetic Plan Anesthetic Plan: MAC: Disposition: Standard PACU
[2022-05-10 10:29] VITALS: BP 121/77; PULSE 74; RESP 18; TEMP 36.1; O2SAT 98; BMI 28.5
[2022-05-10] MEDS: Lactated Ringers 1,000 ML 50 ML IVCONT (10:53)
--- NOTE | 2022-05-10 11:03 | MHC.SHP ---
Pre-Procedural Eval Section A Date of Service: 05/10/22 Section B Chief Complaint: Diverticulitis of intestine, part unspecified, wit Relevant Family History (Specify if Yes): No Relevant Social History: None Present Medications: see Short Stay Collaborative assessment Medical History: Significant History (Acute diverticulitis Chronic idiopathic constipation Constipation Diarrhea GERD (gastroesophageal reflux disease) Sigmoid diverticulitis) History of Previous Operations: Relevant previous surgery/procedure and date(s) (History of esophagogastroduodenoscopy (EGD) History of intestinal surgery History of partial hysterectomy (~09/2006) Hx of colonoscopy Hx of hemorrhoidectomy) Allergies: Allergies Allergy/AdvReac Type Severity Reaction Status Date / Time Penicillins [PENICILLINS] Allergy Intermediate HIVES/SWELL Verified 04/25/22 15:21 ING bupropion [From Wellbutrin] Allergy hives, Verified 04/25/22 15:21 swelling Review of Systems Sugical H&P ROS: Negative: Constitution, Cardiovascular, Respiratory, Neurological, Psychiatric, Hem-Onc, Allergic/Immunologic, Gastrointestinal, Genitourinary, Musculoskeletal, Integumentary, Endocrine and Eyes/Ears/Nose/Throat Exam Surgical H&P Exam: Normal: HEENT, Normal: Heart, Normal: Lungs, Normal: Extremities, Normal: Abdomen, Normal: Skin and Normal: Neurological Plan Diagnosis/Plan: Unchanged I have reviewed the history and physical and performed a pertinent physical examination on my patient. No changes have occurred unless specified. Time Spent With Patient Time: Total time managing care of this patient today ____ minutes.
--- NOTE | 2022-05-10 11:18 | W.PM.OPN ---
Operative Note Operative Note Date of Service: 05/10/22 Narrative: Operative Information Procedure Description: Colonoscopy Indication: hx of diverticulitis, altered bowel habit Anesthesia: MAC COLONOSCOPY Instrument: Olympus variable stiffness pediatric scope 190L Colonoscopy Monitoring: Vital signs and clinical assessment, continuous EKG monitoring, Pulse oximetry, Carbon Dioxide monitoring and blood pressure monitoring were done throughout the procedure. Colon withdrawal time was 14 minutes. Procedure: The patient was placed in the left lateral decubitis position and pre-procedure medications were administered. After a digital rectal examination of the ano-rectum, the video colonoscope was inserted into the rectum and advanced through the colon to the cecum/TI. The colonoscope was slowly withdrawn in a retrograde panoramic fashion and the colon mucosa was carefully examined including a retroflexed view of the rectum. Findings and interventions are described below. Procedure Difficulty: easy Findings: Terminal Ileum-normal, random bx taken Random colon bx taken Cecum:normal Ascending Colon: x2 diminutive polyps removed with cold forceps Transverse Colon -normal Descending Colon: 4-5 mm sessile polyp removed with cold forceps Sigmoid Colon: mild to moderate diverticulosis with luminal narrowing Rectum: Retroflexion with small internal hemorrhoids, grade I Anorectum - normal Colon preparation: [place] Bowel Preparation Scale Right colon; 2 Transverse colon: 2 Left colon; 1-2 (0 = Unprepared colon segment with mucosa not seen due to solid stool that cannot be cleared. 1 = Portion of mucosa of the colon segment seen, but other areas of the colon segment not well seen due to staining, residual stool and/or opaque liquid. 2 = Minor amount of residual staining, small fragments of stool and/or opaque liquid, but mucosa of colon segment seen well. 3 = Entire mucosa of colon segment seen well with no residual staining, small fragments of stool or opaque liquid) Impression and Post Procedure Diagnosis: polyps internal hemorrhoids diverticular disease Plan: High fiber diet leaflet Avoid straining at stool, epsom salts and sitz bath, anusol supps or cream Repeat Colonoscopy in 3-4 years due to fair left sided prep or earlier if clinically indicated Above findings were reviewed with the patient and relevant handouts were provided if indicated.
[2022-05-10 11:48] VITALS: BP 111/62; PULSE 73; RESP 15; TEMP 36.2; O2SAT 100
[2022-05-10 12:03] VITALS: BP 112/65; PULSE 75; RESP 14; TEMP 36.7; O2SAT 100
== END 2022-05-10 13:00 | disposition home or self-care (01) ==
LOC: HO.SSS 16:44
PROVIDERS: PCP Internal Medicine; Visit Provider Internal Medicine Gastroenterology
PROC: 0DJD8ZZ Inspection of Lower Intestinal Tract, Via Natural or Artificial Opening Endoscopic (ICD-10-PCS; CPT 45378; principal; 2022-05-10 11:00)
DX: K58.0 Irritable bowel syndrome with diarrhea (principal); Z87.19 Personal history of other diseases of the digestive system; K59.04 Chronic idiopathic constipation; D12.2 Benign neoplasm of ascending colon; D12.4 Benign neoplasm of descending colon; K57.30 Diverticulosis of large intestine without perforation or abscess without bleeding; K64.0 First degree hemorrhoids; R10.2 Pelvic and perineal pain; K21.9 Gastro-esophageal reflux disease without esophagitis; Z79.899 Other long term (current) drug therapy; Z88.0 Allergy status to penicillin; Z88.8 Allergy status to other drugs, medicaments and biological substances; Z98.890 Other specified postprocedural states
CPT/HCPCS: 45380; 88305

== ENCOUNTER → 2022-05-24 10:27 | Outpatient (BNVA) | payer MEDICAID, SELFPAY | PROVIDERS: PCP Internal Medicine; Visit Provider Nurse Practitioner | DX: D12.6 Benign neoplasm of colon, unspecified (principal); K21.9 Gastro-esophageal reflux disease without esophagitis; K58.0 Irritable bowel syndrome with diarrhea | CPT/HCPCS: 99212 ==

== ENCOUNTER 2022-07-14 12:38 | Outpatient (REF) | payer MEDICAID, SELFPAY ==
[2022-07-14 14:56] LABS: TSH reflex Free T4 0.73 uIU/mL (0.32-4.0)
== END 2022-07-14 12:39 | disposition home or self-care (01) ==
LOC: HO.LAB 12:38
PROVIDERS: PCP Internal Medicine; Visit Provider Nurse Practitioner
DX: K21.9 Gastro-esophageal reflux disease without esophagitis (principal); R10.9 Unspecified abdominal pain; K58.0 Irritable bowel syndrome with diarrhea; D12.6 Benign neoplasm of colon, unspecified; K57.92 Diverticulitis of intestine, part unspecified, without perforation or abscess without bleeding
CPT/HCPCS: 36415; 84443; 86003; 99212

== ENCOUNTER 2022-07-20 12:14 | Outpatient (REF) | payer MEDICAID, SELFPAY ==
[2022-07-20 16:07] LABS: Campylobacter Not Detected (Not Detect.)
[2022-07-20 16:08] LABS: Adenovirus F 40/41 Not Detected (Not Detect.); Astrovirus Not Detected (Not Detect.); Cryptosporidium Not Detected (Not Detect.); Cyclospora cayetanensis Not Detected (Not Detect.); E. coli EAEC Not Detected (Not Detect.); E. coli EPEC Not Detected (Not Detect.); E. coli ETEC Not Detected (Not Detect.); E. coli STEC Not Detected (Not Detect.); Entamoeba histolytica Not Detected (Not Detect.); Giardia lamblia Not Detected (Not Detect.); Norovirus GI/GII Not Detected (Not Detect.); Plesiomonas shigelloides Not Detected (Not Detect.); Rotavirus A Not Detected (Not Detect.); Salmonella Not Detected (Not Detect.); Sapovirus Not Detected (Not Detect.); Shigella sp./EIEC Not Detected (Not Detect.); Vibrio Not Detected (Not Detect.); Vibrio Cholerae Not Detected (Not Detect.); Yersinia enterocolitica Not Detected (Not Detect.)
[2022-07-29 21:59] LABS: Calprotectin, Fecal <5 mcg/g
== END 2022-07-20 12:15 | disposition home or self-care (01) ==
LOC: HO.LNP 12:14
PROVIDERS: Visit Provider Nurse Practitioner
DX: R19.7 Diarrhea, unspecified (principal)
CPT/HCPCS: 83993; 87507

== ENCOUNTER 2022-08-11 09:44 | Outpatient (AMB) | payer MEDICAID, SELFPAY ==
[2022-08-11 09:49] VITALS: BP 124/72; PULSE 71; BMI 29.2
--- NOTE | 2022-08-11 09:49 | MHC.OFFVIS ---
Intake Vital Signs 08/11/22 09:49 Height 5 ft 4 in Weight 170 lb 3.15 oz BMI 29.2 BP 124/72 Blood Pressure Location Rt brachial Position Sitting Pulse 71 Intake Visit Reasons: 4 Week Follow up Intake Note: Kacy presents in the office as a follow up abdominal pain CC: She states that she is having a lot of pain from LLQ, nausea, vomiting, and diarrhea. She states she has been having 2 weeks with vomits and diarrhea. She also reports rectal bleeding. Experimental Psychologist Required: Yes Allergies Penicillins [PENICILLINS] Allergy (Intermediate, Verified 08/14/22 14:37) HIVES/SWELLING bupropion [From Wellbutrin] Allergy (Verified 08/14/22 14:37) hives, swelling HPI 4 Week Follow up HPI Details Assessment & Plan (1) Tubular adenoma of colon: ?Comment: 2022 scope= 1 TA repeat 3-4 years due to fair left sided prep ?Code(s): D12.6 - Benign neoplasm of colon, unspecified ?Plan: Nepali #Isa Live Her colonoscopy needs to be repeated in 5 years due to the finding of a tubular adenoma.? The procedure was well tolerated.? The results were explained and the patient is agreeable to the follow-up interval as stated.? Education was provided to tell any 1st degree relatives about their findings to be sure that they are screened by age 45.? Educated that they will be put on a recall list when it is time for their repeat scope but should they move out of state or away from the hospital they will need to remember along with their primary to repeat the procedure in a timely fashion to avoid any adverse complications. Continued diarrhea since her hosp from [facility] in 01/2022 - past had CIC.? This is despite being on Lotronex twice a day, pantoprazole, dicyclomine and psyllium husk fiber. Getting GI panel, TSH ? why not resolving. Had luminal narrowing in sigmoid on past CT last in Feb but had 3 in short time frame. She is allergic to PCN and abx upset her stomach. Will send back to Dr. Veliz for consideration or if another CT is a good idea. May consider xifaxin going forward a. REpeating GI panel, getting RAST panel and TSH. ROV 4 weeks. (2) Irritable bowel syndrome with diarrhea: ?Code(s): K58.0 - Irritable bowel syndrome with diarrhea (3) Diarrhea: ?Code(s): R19.7 - Diarrhea, unspecified (4) Acute diverticulitis: ?Code(s): K57.92 - Diverticulitis of intestine, part unspecified, without perforation or abscess without bleeding ? ? ? Orders: Orders TSH reflex Free T4 07/14/22 R19.7 - Diarrhea, unspecified ? GI Panel 07/20/22 R19.7 - Diarrhea, unspecified ? Calprotectin, Feca l 07/20/22 R19.7 - Diarrhea, unspecified ? Rast Allergen 07/14/22 R19.7 - Diarrhea, unspecified ? Referrals General Surgery Re [facility] ? R19.7 - Diarrhea, unspecified, K57.9 2 - Diverticulitis of intestine, par t unspecified, wit hout perforation o r abscess without bleeding ? Medications: New alosetron (Lotrone x) 1 mg (2 x 0.5 mg) PO BID 60 tabs 6RF K58.0 - Irritable bowel syndrome wit h diarrhea ? Discontinued linaclotide ?? Dis continued Reason:? Doctor's Order 72 mcg? PO QAM 30 caps 0RF ? ? LABS: Laboratory Tests 07/14/22 07/20/22 13:46 11:40 TSH 0.73 Stool Calprotectin <5 07/20/22-[address]: ORDERED: GI Panel Test Result Flag Referen ce Sit e Campylobacter Not Detected Not Dete ct. P. shigelloides Not D etected Not Detect . Sa lmonella Not Det ected Not Detect. Vibr io Not Detec srini Not Detect. Vibrio Cholerae Not Detecte d Not Detect. Y. enter ocolit. Not Detected Not Detect. E. coli EA EC Not Detected No t Detect. E. coli EPEC Not Detected Not Detect. E. coli ETEC N ot Detected Not De tect. E. coli STEC Not Detected Not Dete ct. E. coli O157 Not ap plicable Not Detect . E. coli contain ing the O157 antig en are a subset of Shiga-like toxin-producing E . coli (STEC). S higella/EIEC Not De tected Not Detect. Cry ptosporidium Not Dete cted Not Detect. Cyclo spora Not Detect ed Not Detect. E. hist olytica Not Detected Not Detect. Giardia l amblia Not Detected N ot Detect. Adenovirus Not Detected Not Detect. Astrovirus Not Detected Not D etect. Norovirus No t Detected Not Det ect. Rotavirus A Not Detected Not Detec t. S apovirus Not De tected RAST PANEL STILL PENDING !!! TODAYS VISIT Nepali #Dana Live Her N/V/D continues, she feels abx make it worse. Pain in LLQ still. Will try budesonide and see if we can get xifaxin. She continues Lotronex for now. We review all the labs and there does not seem to be any infectious or inflammatory process to explain her symptoms. Her RAST panel for food allergies is still pending. She has not been able to contact Dr. Veliz to discuss surgery for TICS. Will walk her over. ROV 2 weeks. [facility] Medical History (Updated 08/22/22 @ 00:02 by Background Daemon) Abdominal pain Acute diverticulitis Chronic idiopathic constipation Constipation Diarrhea Diverticulitis GERD (gastroesophageal reflux disease) Irritable bowel syndrome with diarrhea Left lower quadrant pain Sigmoid diverticulitis Tubular adenoma of colon Surgical History History of esophagogastroduodenoscopy (EGD) History of intestinal surgery History of partial hysterectomy (~09/2006) Hx of colonoscopy Hx of hemorrhoidectomy Family History Father Cancer HTN (hypertension) Mother HTN (hypertension) Hyperthyroidism Migraine headache Maternal Grandmother History of breast cancer Paternal Grandmother History of breast cancer Family/Other Colon cancer Paternal Aunt Ovarian cancer Social History Household Members: None Housing: Apartment Do you presently have visiting nurse or other home services: No Alcohol intake: never Patient Tobacco Use Status: Never used Tobacco Smoked in Last 30 Days: No Use of substances other than those prescribed or required for medical reasons: No Advance Directives: No Advance Directives Information Provided: No Nutrition Risks: No Nutritional Risk service: No Current occupational status: disabled Female Reproductive History Menstrual Age of Menarche: 7 Review of Systems Const Denies fatigue, Denies fever(s), Denies night sweats, Reports poor appetite and Denies weight loss Eyes Details: glasses Reports requires corrective lenses ENT Reports Normal hearing present, Denies dental pain, Denies dysphagia, Denies hearing loss, Denies mouth pain, Denies odynophagia, Denies throat swelling, Denies tongue swelling and Reports other (Dentition adequate) Card Reports no additional complaints Resp Reports no additional complaints GI Reports abdominal pain, Denies melena, Denies bloating, Denies hematochezia, Denies constipation, Reports GI cramping, Denies dysphagia, Denies excessive flatus, Denies early satiety, Reports heartburn, Reports diarrhea, Reports nausea, Denies odynophagia, Reports vomiting and Denies hematemesis Skin/Breast Denies pruritus, Denies lesions, Denies rash and Denies jaundice Neuro Reports Normal hearing present and Denies Abnormal speech present Endo Denies fatigue Aller/Immun Denies throat swelling and Denies tongue swelling Physical Exam Vital Signs: Last Vital Signs Pulse 71 08/11/22 09:49 BP 124/72 08/11/22 09:49 BMI result Body Mass Index 29.2 Const General: cooperative, no acute distress, well developed and well groomed Nutritional Appearance: well nourished and overweight Orientation/consciousness: oriented to person, oriented to place and oriented to time Limitations: language barrier HEENT Head: Yes normocephalic and Yes atraumatic Eyes General: appearance normal, both eyes and all related structures Pupils: Equal, round and reactive pupils present Neck Neck: Yes normal visual inspection and Yes no lymphadenopathy Thyroid: Thyroid normal Resp Effort & Inspection: normal respiratory effort and able to speak in complete sentences Auscultation: clear to auscultation bilaterally Cardio Rate: regular rate Rhythm: regular rhythm Heart sounds: Normal, physiologic split S2 sound present Peripheral pulses: radial pulses present and posterior tibial pulses present GI Inspection: No distended, No Abdominal panniculus present and Yes obesity Palpation (GI): Soft to palpation, Tenderness to palpation present (GI) in the LLQ, no guarding, not rigid and No hepatosplenomegaly present Percussion: Yes normal to percussion Auscultation: normal bowel sounds Rectal Exam - Female: deferred Skin General skin exam: no rashes or lesions noted, turgor normal, skin not dry, no jaundice, No spider nevi and no striae Rashes: no rashes Nails: normal Neuro General: oriented to person, oriented to place and oriented to time Cranial nerves: Yes Equal, round and reactive pupils present and Yes Normal hearing present Speech: No Abnormal speech present Extrem General: Yes normal to inspection, No clubbing, No cyanosis and No edema Psych Appearance: grossly normal and well kempt Mental Status: mental status grossly normal Speech and movement: Normal speech and movement present Affect: normal affect Attitude: cooperative Thought process: Normal thought process present and not confabulating Thought content: Normal thought content present Insight: Limited insight present (Psych) Judgement: Limited judgement present (Psych) Results Reviewed Results Reviewed: Laboratory Tests 07/14/22 07/20/22 13:46 11:40 TSH 0.73 Stool Calprotectin <5 07/20/22-[address]: ORDERED: GI Panel Test Result Flag Reference Site Campylobacter Not Detected Not Detect. P. shigelloides Not Detected Not Detect. Salmonella Not Detected Not Detect. Vibrio Not Detected Not Detect. Vibrio Cholerae Not Detected Not Detect. Y. enterocolit. Not Detected Not Detect. E. coli EAEC Not Detected Not Detect. E. coli EPEC Not Detected Not Detect. E. coli ETEC Not Detected Not Detect. E. coli STEC Not Detected Not Detect. E. coli O157 Not applicable Not Detect. E. coli containing the O157 antigen are a subset of Shiga-like toxin-producing E. coli (STEC). Shigella/EIEC Not Detected Not Detect. Cryptosporidium Not Detected Not Detect. Cyclospora Not Detected Not Detect. E. histolytica Not Detected Not Detect. Giardia lamblia Not Detected Not Detect. Adenovirus Not Detected Not Detect. Astrovirus Not Detected Not Detect. Norovirus Not Detected Not Detect. Rotavirus A Not Detected Not Detect. Sapovirus Not Detected Assessment & Plan Assessment & Plan (1) Diarrhea: Code(s): R19.7 - Diarrhea, unspecified Plan: Nepali #Dana Live Her N/V/D continues, she feels abx make it worse. Pain in LLQ still. Will try budesonide and see if we can get xifaxin. She continues Lotronex for now. We review all the labs and there does not seem to be any infectious or inflammatory process to explain her symptoms. Her RAST panel for food allergies is still pending. She has not been able to contact Dr. Veliz to discuss surgery for TICS. Will walk her over. ROV 2 weeks. (2) GERD (gastroesophageal reflux disease): Code(s): K21.9 - Gastro-esophageal reflux disease without esophagitis (3) Epigastric pain: Code(s): R10.13 - Epigastric pain (4) Abdominal cramping: Code(s): R10.9 - Unspecified abdominal pain Medications: New budesonide ER 9 mg (3 x 3 mg) PO DAILY 14 ea 0RF R19.7 - Diarrhea, unspecified Coding Level of Care Code Est Pt Level 3 (48917) Diagnoses Diarrhea R19.7 GERD (gastroesophageal reflux disease) K21.9 Epigastric pain R10.13 Abdominal cramping R10.9
== END 2022-08-11 10:19 | disposition home or self-care (01) ==
PROVIDERS: PCP Internal Medicine; Visit Provider Nurse Practitioner
DX: R19.7 Diarrhea, unspecified (principal); K21.9 Gastro-esophageal reflux disease without esophagitis; R10.13 Epigastric pain; R10.9 Unspecified abdominal pain
CPT/HCPCS: 99213

== ENCOUNTER → 2022-08-11 09:44 | Outpatient (BNVA) | payer MEDICAID, SELFPAY | PROVIDERS: PCP Internal Medicine; Visit Provider Nurse Practitioner | DX: R10.32 Left lower quadrant pain (principal); R10.13 Epigastric pain; K58.0 Irritable bowel syndrome with diarrhea; K21.9 Gastro-esophageal reflux disease without esophagitis; D12.6 Benign neoplasm of colon, unspecified | CPT/HCPCS: 99213 ==

== ENCOUNTER 2022-08-14 14:10 | Outpatient (AMB) | payer MEDICAID, SELFPAY ==
[2022-08-14 14:14] VITALS: BP 122/73; PULSE 83; BMI 28.5
--- NOTE | 2022-08-14 14:14 | MHC.OFFVIS ---
Intake Vital Signs 08/14/22 14:14 Height 5 ft 4 in Weight 166 lb BMI 28.5 BP 122/73 Blood Pressure Location Rt brachial Position Sitting Pulse 83 Intake Visit Reasons: Diverticulitis, rediscuss Intake Note: This patient presents for a follow-up assessment for diverticulitis. Patient c/o; abdominal pain, vomiting, nausea, diarrhea, unable to sit for long periods of time, Left lower abdominal pain radiates towards left leg, on abx-not effective. Puller Out Required: Yes Puller Out Language: Prover Name: Ihsan Information Interpreted: non-clinical & clinical Accompanied by: Self / Same As Patient Allergies Penicillins [PENICILLINS] Allergy (Intermediate, Verified 08/14/22 14:37) HIVES/SWELLING bupropion [From Wellbutrin] Allergy (Verified 08/14/22 14:37) hives, swelling Medication List - Last Reconciled 08/14/22 by Fritz Veliz MD alosetron (Lotronex) 1 mg (2 x 0.5 mg) PO BID aripiprazole 15 mg PO QAM budesonide ER 9 mg (3 x 3 mg) PO DAILY buspirone 15 mg PO BID cholecalciferol (vitamin D3) 25 mcg PO QAM dicyclomine 40 mg (2 x 20 mg) PO QID 30 days galcanezumab-gnlm (Emgality Pen) 120 mg subcut Q4W glycerin-witch aixa 12.5-50 % (A.E.R. Witch Aixa) 0 pad topical lisinopril 20 mg PO DAILY metoprolol tartrate 25 mg PO BID nabumetone 750 mg PO BID nortriptyline 100 mg PO QPM ondansetron 4 mg PO TID PRN 5 days pantoprazole 40 mg PO DAILY prochlorperazine maleate 10 mg PO BID PRN psyllium husk (Metamucil) 1 tbsp PO BID sumatriptan succinate 100 mg PO DAILY MRX1 zolpidem ER 12.5 mg PO BEDTIME PRN HPI Diverticulitis, rediscuss HPI Details 57 year female for left lower quadrant pain. She is known to me as I had admitted her for acute diverticulitis last January,. She had minimal inflammatory changes on CT scan at that time but she did have significant constipation and had prolonged stay in the hospital. She says she has had left lower quadrant pain for 2 weeks now. She also has diarrhea and vomiting. She admits to having poor oral intake for 2 weeks. She actually saw her vegetable cook last Sunday who instructed her to see me. She has had this seemed pain for 2 weeks and I her why she did not go to the ER. She says she wanted to wait for me to see her today although she has had this pain already for a while. She denies any fever. She went to the ER last February, as well because of left lower quadrant pain. She had CAT scan showing mild inflammatory disease in the sigmoid consistent with acute diverticulitis. She was sent home oral antibiotics at that time. She also has says that she has been told she has IBS by her vegetable cook. [facility] Medical History (Updated 08/14/22 @ 14:38 by Fritz Veliz MD) Acute diverticulitis Chronic idiopathic constipation Constipation Diarrhea GERD (gastroesophageal reflux disease) Left lower quadrant pain Sigmoid diverticulitis Surgical History History of esophagogastroduodenoscopy (EGD) History of intestinal surgery History of partial hysterectomy (~09/2006) Hx of colonoscopy Hx of hemorrhoidectomy Family History Father Cancer HTN (hypertension) Mother HTN (hypertension) Hyperthyroidism Migraine headache Maternal Grandmother History of breast cancer Paternal Grandmother History of breast cancer Family/Other Colon cancer Paternal Aunt Ovarian cancer Social History Household Members: None Housing: Apartment Do you presently have visiting nurse or other home services: No Alcohol intake: current Alcohol intake frequency: does not drink Patient Tobacco Use Status: Never used Tobacco service: No Current occupational status: disabled Female Reproductive History Menstrual Age of Menarche: 7 Review of Systems Const Denies chills and Denies fever(s) Card Denies chest pain, Denies dyspnea and Denies dyspnea on exertion Resp Denies cough, Denies dyspnea and Denies dyspnea on exertion GI Reports abdominal pain, Denies hematochezia, Denies change in bowel habits, Reports diarrhea and Reports vomiting Denies hematuria Musc Denies back pain and Denies limited range of motion Neuro Denies focal weakness and Denies convulsions Psych Denies depression and Denies mood swings Physical Exam Vital Signs: Last Vital Signs Pulse 83 08/14/22 14:14 BP 122/73 08/14/22 14:14 BMI result Body Mass Index 28.5 Const General: comfortable and no acute distress Orientation/consciousness: patient oriented x3 Neck Neck: Yes no lymphadenopathy Resp Auscultation: clear to auscultation bilaterally Cardio Rhythm: regular rhythm GI Other: Tender mostly on the left side Palpation (GI): Soft to palpation, Tenderness to palpation present (GI) and no guarding Neuro General: patient oriented x3 Assessment & Plan Assessment & Plan (1) Left lower quadrant pain: Code(s): R10.32 - Left lower quadrant pain Plan: She has been having symptoms of lower abdominal pain mostly on the left side, along with nausea, vomiting and diarrhea for 2 weeks now. She is tender on the left lower quadrant mostly. I told her that she should go to the emergency room right now he has history of acute diverticulitis. She will need a CT scan of the abdomen pelvis. I have talked to the ER physician about her as she will definitely need to be admitted at least for IV antibiotics and hydration. She has had nausea and vomiting for 2 weeks and apparently has had poor oral intake already. The patient understands the plan well. Coding Level of Care Code Est Pt Level 3 (03672) Diagnoses Left lower quadrant pain R10.32
== END 2022-08-14 14:46 | disposition home or self-care (01) ==
PROVIDERS: PCP Internal Medicine; Referring Provider Nurse Practitioner; Visit Provider Surgery
DX: R10.32 Left lower quadrant pain (principal)
CPT/HCPCS: 99213

== ENCOUNTER → 2022-08-14 14:10 | Outpatient (BNVA) | payer MEDICAID, SELFPAY | PROVIDERS: PCP Internal Medicine; Referring Provider Nurse Practitioner; Visit Provider Surgery | DX: R10.32 Left lower quadrant pain (principal) | CPT/HCPCS: 99212 ==

== ENCOUNTER 2022-08-14 14:35 | Inpatient (IN) | payer MEDICAID, SELFPAY ==
--- NOTE | ~2022-08-14 | CT_ITS ---
EXAMINATION: CT ABDOMEN AND PELVIS WITH CONTRAST CLINICAL INFORMATION: LLQ abdominal pain COMPARISON: 02/21/2022 TECHNIQUE: Multidetector volumetric imaging was performed from the superior aspect of the liver through the pubic symphysis following administration of 85 mL Omnipaque 300 intravenous contrast. Sagittal and coronal reformatted images were obtained on the technologist workstation.. This CT examination was performed using dose optimization techniques as appropriate, variously including the following: *Automated exposure control *Adjustment of mA and/or kV according to patient size (this includes techniques or standardized protocols for targeted exams where dose is matched to indication/reason for exam; i.e. extremities or head) *Use of iterative reconstruction technique DLP: 593 mGy-cm FINDINGS: LUNG BASES: Minimal bibasilar dependent atelectasis. Small hiatal hernia. LIVER, GALLBLADDER, AND BILIARY TREE: Mild diffuse fatty infiltration of the liver but no focal hepatic lesion nor biliary ductal dilatation The gallbladder is unremarkable with no evidence of radiopaque gallstones, gallbladder wall thickening, or obvious pericholecystic inflammatory changes. PANCREAS: Unremarkable. SPLEEN: Unremarkable. ADRENAL GLANDS: Unremarkable. KIDNEYS AND URETERS: The kidneys are normal in size, shape, and attenuation. Low-attenuation cortical cysts suggested bilaterally, too small to characterize further. No hydronephrosis, hydroureter, or calculi seen. No perinephric stranding. BLADDER: Decompressed GASTROINTESTINAL TRACT: Colonic diverticulosis is seen more so in the sigmoid colon. There is subtle colonic wall thickening seen in the descending and proximal sigmoid colon. No obstructive changes. Milder changes in the more proximal colon. Visualized small bowel grossly unremarkable ABDOMINAL WALL: No significant hernia is appreciated. LYMPHOVASCULAR STRUCTURES: Mild vascular calcification within the aorta iliac system. No bulky adenopathy PELVIC VISCERA: Presumably surgically absent OSSEOUS STRUCTURES: Unremarkable. CT/CT abdomen pelvis w IV con IMPRESSION: Colonic diverticulosis more so in the sigmoid colon. There is more diffuse subtle colonic wall thickening seen in the descending and proximal sigmoid colon. Nonspecific colitis would be suspected with this appearance. With this length of abnormality, infectious or inflammatory causes would be favored. This area of colon had a more normal appearance on the prior CT scan.
--- NOTE | ~2022-08-14 | CT_ITS ---
EXAMINATION: CT ABDOMEN AND PELVIS WITHOUT CONTRAST CLINICAL INFORMATION: Left-sided abdominal pain, C. difficile colitis COMPARISON: CT abdomen pelvis 08/14/2022 TECHNIQUE: Multidetector volumetric imaging was performed from the superior aspect of the liver through the pubic symphysis. Sagittal and coronal reformatted images were obtained on the technologist's workstation. This CT examination was performed using dose optimization techniques as appropriate, variously including the following: *Automated exposure control *Adjustment of mA and/or kV according to patient size (this includes techniques or standardized protocols for targeted exams where dose is matched to indication/reason for exam; i.e. extremities or head) *Use of iterative reconstruction technique DLP: 677 mGy-cm FINDINGS: LUNG BASES: New trace bilateral pleural effusions. ABDOMINAL AND PELVIC WALL: Mild subcutaneous edema in the abdominal pelvic wall soft tissues. LIVER AND BILIARY TREE: Unremarkable. GALLBLADDER: Unremarkable. PANCREAS: Unremarkable. SPLEEN: Unremarkable. ADRENAL GLANDS: Unremarkable. KIDNEYS AND URETERS: Unremarkable. GASTROINTESTINAL TRACT: Colon is fluid-filled compatible with a diarrheal state. Scattered areas of bowel wall thickening better appreciated on prior postcontrast exam, though are not convincingly changed from prior.. No pneumatosis or portal venous gas. There is sigmoid diverticulosis with subtle peritoneal thickening subjacent to a single diverticuli which could reflect a very subtle early uncomplicated sigmoid diverticulitis although given history of C. Difficile colitis, colitis could also appear similar. No perforation or abscess. Normal appendix. VASCULAR: Unremarkable. LYMPH NODES/PERITONEUM: No lymphadenopathy. FREE FLUID: None. BLADDER: Unremarkable. PELVIC VISCERA: Status post hysterectomy. OSSEOUS STRUCTURES: Unremarkable. CT/CT abdomen pelvis wo IV con IMPRESSION: 1. Colon is fluid-filled compatible with a diarrheal state. Scattered areas of bowel wall thickening better appreciated on prior postcontrast exam, though are not convincingly changed from prior. There is sigmoid diverticulosis with subtle peritoneal thickening subjacent to a single diverticuli which could reflect a very subtle early uncomplicated sigmoid diverticulitis although given history of C. Difficile colitis, colitis could also appear similar. No perforation or abscess. 2. New trace bilateral pleural effusions. 3. Mild subcutaneous edema in the abdominal pelvic wall soft tissues.
[2022-08-14 14:37] VITALS: BP 128/72; PULSE 75; RESP 18; TEMP 36.6; O2SAT 98; BMI 28.3
--- NOTE | 2022-08-14 14:37 | ED.GENADULT ---
HPI - General Adult General Chief complaint: Abdominal Pain Stated complaint: Diverticulitis Time Seen by Provider: 08/14/22 17:51 Source: patient Mode of arrival: ambulatory Limitations: no limitations History of Present Illness HPI narrative: Patient is 57 years old with history of chronic diarrhea diverticulitis since 01/26 been seen by GI. Stool studies were negative C diff was also negative on 02/27 this time patient been having diarrhea for last 2 weeks almost 10-12 times a day watery occasionally she gets blood also nauseated vomited to 3 times complaining of lower abdominal pain was seen by surgeon today who sent the patient to the ER for further evaluation no fever no chills no recent intake of any antibiotic patient colonoscopy on 05/28 which showed internal hemorrhoid polyps and diverticular disease Related Data Home Medications Medication Instructions Recorded Confirmed galcanezumab-gnlm 120 mg/mL 120 mg subcut Q4W 11/25/21 08/14/22 subcutaneous pen injector (Emgality Pen) lisinopril 20 mg tablet 20 mg PO DAILY 11/25/21 08/14/22 metoprolol tartrate 25 mg tablet 25 mg PO BID 11/25/21 08/14/22 nortriptyline 50 mg capsule 100 mg PO QPM 11/25/21 08/14/22 sumatriptan succinate 100 mg tablet 100 mg PO DAILY MRX1 migraine 11/25/21 08/14/22 zolpidem 12.5 mg tablet,extended 12.5 mg PO BEDTIME PRN Insomnia 11/25/21 08/14/22 release,multiphase aripiprazole 15 mg tablet 15 mg PO QAM 03/31/22 08/14/22 buspirone 15 mg tablet 15 mg PO BID 07/14/22 08/14/22 cholecalciferol (vitamin D3) 25 25 mcg PO QAM 07/14/22 08/14/22 mcg (1,000 unit) tablet glycerin-witch nereida 12.5 %-50 % 0 pad topical 07/14/22 08/14/22 topical pads (A.E.R. Witch Nereida) Previous Rx's Medication Instructions Recorded ondansetron 4 mg disintegrating 4 mg PO TID PRN nausea and 02/28/22 tablet vomiting 5 days #30 tabs prochlorperazine maleate 10 mg 10 mg PO BID PRN nausea and 02/28/22 tablet vomiting #30 tabs dicyclomine 20 mg tablet 40 mg PO QID 30 days #240 tabs 05/24/22 pantoprazole 40 mg tablet,delayed 40 mg PO DAILY #30 tabs 05/24/22 release psyllium husk 3.4 gram/5.4 gram 1 tbsp PO BID #660 grams 05/24/22 oral powder (Metamucil) alosetron 0.5 mg tablet (Lotronex) 1 mg PO BID #60 tabs 07/14/22 nabumetone 750 mg tablet 750 mg PO BID #60 tabs 08/10/22 budesonide 3 mg 9 mg PO DAILY #14 ea 08/11/22 capsule,delayed,extended release Allergies Allergy/AdvReac Type Severity Reaction Status Date / Time Penicillins [PENICILLINS] Allergy Intermediate HIVES/SWELL Verified 08/14/22 14:37 ING bupropion [From Wellbutrin] Allergy hives, Verified 08/14/22 14:37 swelling Review of Systems Review of Systems: Yes all other systems are reviewed and are negative [facility] Past Medical History Medical History Acute diverticulitis Chronic idiopathic constipation Constipation Diarrhea GERD (gastroesophageal reflux disease) Left lower quadrant pain Sigmoid diverticulitis Surgical History History of esophagogastroduodenoscopy (EGD) History of intestinal surgery History of partial hysterectomy (~09/2006) Hx of colonoscopy Hx of hemorrhoidectomy Family History Family History Father Cancer HTN (hypertension) Mother HTN (hypertension) Hyperthyroidism Migraine headache Maternal Grandmother History of breast cancer Paternal Grandmother History of breast cancer Family/Other Colon cancer Paternal Aunt Ovarian cancer Social History Social History Household Members: None Housing: Apartment Do you presently have visiting nurse or other home services: No Alcohol intake: current Alcohol intake frequency: does not drink Patient Tobacco Use Status: Never used Tobacco Advance Directives: No Advance Directives Information Provided: No service: No Current occupational status: disabled Physical Exam ED Vital Signs: Vital Signs - 24 hr 08/14/22 14:37 Temperature 98 F Pulse Rate 75 Respiratory Rate 18 Blood Pressure 128/72 Pulse Oximetry 98 BMI result Body Mass Index 28.3 Appearance: Alert. Oriented X3. No acute distress. Eyes: No pallor or icterus ENT: Pharynx normal. Oral Mucosa moist Neck: Normal inspection. Neck supple. CVS: Normal heart rate and rhythm. Pulses normal. Respiratory: No respiratory distress. Equal air entry bilateral, no wheezing/rales/rhonchi Abdomen: Soft, diffuse tenderness lower quadrant left> right. No rebound tenderness Bowel sounds are present, no mass palpable, no CVA tenderness Skin: Skin warm and dry. Normal skin color. Normal skin turgor. Extremities: No lower extremity edema. No calf tenderness Neuro: Oriented X 3. No motor deficit. Course Course Course Narrative: This is an RME: Additional HPI, ROS, PE not included below will be deferred to primary provider. Patient is a 57 yo F with a history of diverticulitis sent in by surgery with a complaint of LLQ abdominal pain x 2 weeks with associated nausea, vomiting. Plan: labs, imaging Medications Administered Discontinued Medications Generic Name Dose Route Start Last Admin Trade Name Freq PRN Reason Stop Dose Admin Iohexol 100 ml 08/14/22 16:32 08/14/22 16:32 Iohexol 350 Mg/Ml 100 Ml Infus..Btl IV 08/14/22 16:33 85 ml ONCE ONE Administration Medical Decision Making Medical Decision Making [facility] Narrative: Patient with chronic colitis with chronic diarrhea which is going for last few years getting worse in the last few months with diffuse lower abdominal pain patient not happy with management will get admitted for IV fluids and further management, discussed with Dr. Veliz surgeon not a surgical case at this time. Case with the hospitalist for admission. Patient will send the stool for C diff Lab Data [facility] Lab Attestation statement: I reviewed the patient's lab results. 08/14/22 15:02 08/14/22 15:02 Labs: Lab Results 08/14/22 08/14/22 Range/Units 15:02 15:02 WBC 6.5 (4.8-10.8) X10*3/uL RBC 5.06 (4.20-5.50) X10*6/uL Hgb 13.5 (12.0-16.0) g/dl Hct 42.5 (37.0-47.0) % MCV 84.0 (80.0-98.0) fL MCH 26.7 L (27.0-33.0) pg MCHC 31.8 (31.0-35.0) g/dl RDW 13.3 (11.0-16.0) % Plt Count 354 (160-400) X10*3/uL MPV 9.5 (9.4-12.3) fL Immature Gran % (Auto) 0.3 (0.0-0.4) % Neut % (Auto) 48.0 (45-73) % Lymph % (Auto) 43.5 H (20-40) % [place] % (Auto) 6.9 (2-11) % Eos % (Auto) 0.8 (0-4) % Baso % (Auto) 0.5 (0-2) % Lymph # (Auto) 2.8 (1.2-4.9) X10*3/uL [place] # (Auto) 0.5 (0.1-1.2) X10*3/uL Eos # (Auto) 0.1 (0.0-0.4) X10*3/uL Baso # (Auto) 0.0 (0.0-0.2) X10*3/uL Abs Immat Gran (auto) 0.02 (0.00-0.03) X10*3/uL Absolute Neuts (auto) 3.1 (2.0-8.3) x10*3/uL Absolute Nucleated RBC 0.000 (0.0-0.012) X10*3/uL Nucleated RBC % (auto) 0.0 (0.0-0.2) /100WBC Sodium 140 (135-145) mmol/L Potassium 3.7 (3.3-5.1) mmol/L Chloride 102 (96-108) mmol/L Carbon Dioxide 27 (22-29) mmol/L Anion Gap 15 (12-20) BUN 12 (9-16) mg/dL Creatinine 0.88 (0.5-1.4) mg/dL Estim Creat Clear Calc 66.5 Estimated GFR > 60 Random Glucose 107 (60-115) mg/dL Calcium 10.2 (8.4-10.2) mg/dL Magnesium 2.1 (1.6-2.6) mg/dL Total Bilirubin 0.6 (0.0-1.0) mg/dL AST 21 (5-31) U/L ALT 21 (0-31) U/L Alkaline Phosphatase 59 (39-117) U/L Total Protein 7.9 (6.5-8.0) g/dL Albumin 4.7 (3.5-5.0) g/dL Lipase 26 (8-78) U/L Radiology Impression Discussion of test interpretation with radiology: I have reviewed the radiologist's reading. Radiologist Impression: CT/CT abdomen pelvis w IV con IMPRESSION: Colonic diverticulosis more so in the sigmoid colon. There is more diffuse subtle colonic wall thickening seen in the descending and proximal sigmoid colon. Nonspecific colitis would be suspected with this appearance. With this length of abnormality, infectious or inflammatory causes would be favored. This area of colon had a more normal appearance on the prior CT scan. Discharge Plan Discharge Clinical Impression: Colitis Patient Disposition: Admitted As Inpatient
[2022-08-14 15:21] LABS: Alanine Aminotransferase 21 U/L (0-31); Albumin Level 4.7 g/dL (3.5-5.0); Alkaline Phosphatase 59 U/L (39-117); Anion Gap 15 (12-20); Aspartate Amino Transferase 21 U/L (5-31); Bilirubin Total 0.6 mg/dL (0.0-1.0); Blood Urea Nitrogen 12 mg/dL (9-16); Calcium 10.2 mg/dL (8.4-10.2); Carbon Dioxide 27 mmol/L (22-29); Chloride 102 mmol/L (96-108); Creatinine Clr Calc Pharmacy 66.5; Estimated Glomerular Filt Rate > 60; Glucose Random 107 mg/dL (60-115); Lipase 26 U/L (8-78); Magnesium 2.1 mg/dL (1.6-2.6); Potassium 3.7 mmol/L (3.3-5.1); Sodium 140 mmol/L (135-145); Total Protein 7.9 g/dL (6.5-8.0)
[2022-08-14] MEDS: iohexoL 350 MG/ML 100 ML INFUS..BTL IV (16:32)
[2022-08-14] MEDS: 0.9 % Sodium Chloride 1,000 ML 999 ML IV (19:21)
--- NOTE | 2022-08-14 19:28 | P.HPHOSP_ITS ---
Patient examined seen, patient is complaining of acute pain. I agree with the findings below. Patient will be admitted for further management of acute on chronic colitis with pain management, supportive measures. History of Present Illness Date of Service: 08/14/22 Attending physician on admission: Tamar Serna Chief Complaint: diarrhea, abd pain, po intolerance 49-year-old female with history of IBS with diarrhea, GERD, history of sigmoid diverticulitis, migraines, and history of colitis presented to the ED earlier today from general surgery office for evaluation of left lower quadrant pain worsening over the last 2 weeks. She has also been having worsening diarrhea, up to 13 episodes of watery diarrhea daily with associated nausea and vomiting. She has not been able to tolerate much p.o. as she has been vomiting. States there has been some bright red blood per rectum with the diarrhea. She has had chronic issues with abdominal pain and diarrhea following with both Gastroenterology and General surgery that has been ongoing for several years. She did have colonoscopy in 05/2022 which showed diverticulosis, tubular adenoma, and hemorrhoids. Was recently seen by Gastroenterology 2 days ago was prescribed budesonide but states she has been unable to secure the medication due to insurance reasons. She has been trying to follow a low-fat diet but has not tried other dietary modifications. She denies any fevers, chills, melena, urinary issues, shortness of breath, chest pain. No bad foods recently or recent travel. She has been treated with oral antibiotics for her symptoms, most recently in March. She was admitted to general surgery from 01/11- 01/24 due to mild diverticulitis treated with IV abx but also due to intractable pain and was discharged on PO levaquin and flagyl. On arrival, vital signs stable. There is no leukocytosis or anemia. Renal function normal, electrolyte levels normal. GI panel was collected on 07/[address] abdomen/pelvis shows colonic diverticulosis mostly in the sigmoid colon as well as more diffuse subtle colonic wall thickening seen in the descending and proximal sigmoid colon consistent with nonspecific colitis, given duration of symptoms, infectious or inflammatory cause is favored. In the ED, given 4 mg loperamide, IV morphine, 1 L IV NS, and ondansetron. Review of Systems Review of Systems: General: No fevers, malaise, unintentional weight loss HEENT: No blurred vision, diplopia. No sore throat, nasal congestion, rhinorrhea, sinus pain, ear pain Cardiovascular: No chest pain, palpitations, or leg edema Respiratory: No shortness of breath, wheezing, cough GI: + abdominal pain, +nausea, +vomiting, + diarrhea, + hematochezia. No constipation, melena : No dysuria, hematuria, increased urinary frequency, decreased urinary output MSK: No myalgia, back pain Neuro: No headaches, weakness, paresthesias Skin: No rashes or lesions [facility] Medical History (Updated 08/14/22 @ 19:41 by RADHA Chandra) Acute diverticulitis Chronic idiopathic constipation Constipation Diarrhea GERD (gastroesophageal reflux disease) Irritable bowel syndrome with diarrhea Left lower quadrant pain Sigmoid diverticulitis Tubular adenoma of colon Family History Father Cancer HTN (hypertension) Mother HTN (hypertension) Hyperthyroidism Migraine headache Maternal Grandmother History of breast cancer Paternal Grandmother History of breast cancer Family/Other Colon cancer Paternal Aunt Ovarian cancer Surgical History History of esophagogastroduodenoscopy (EGD) History of intestinal surgery History of partial hysterectomy (~09/2006) Hx of colonoscopy Hx of hemorrhoidectomy Social History Household Members: None Housing: Apartment Do you presently have visiting nurse or other home services: No Alcohol intake: never Patient Tobacco Use Status: Never used Tobacco service: No Current occupational status: disabled Meds Allergies Allergy/AdvReac Type Severity Reaction Status Date / Time Penicillins [PENICILLINS] Allergy Intermediate HIVES/SWELL Verified 08/14/22 14:37 ING bupropion [From Wellbutrin] Allergy hives, Verified 08/14/22 14:37 swelling Active Medications: Current Medications Acetaminophen (Acetaminophen 325 Mg Tablet) 650 mg PO Q6H PRN PRN Reason: Pain, Mild (Pain Scale 1-3) Sodium Chloride (Ns) 1,000 mls @ 999 mls/hr IV .Q1H1M ONE Stop: 08/14/22 20:03 Last Admin: 08/14/22 19:21 Dose: 999 mls/hr Metronidazole (Flagyl) 500 mg in 100 mls @ 100 mls/hr IV Q12H [facility] Ondansetron HCl (Ondansetron Hcl 4 Mg/2 Ml Vial) 4 mg IVPUSH Q8H PRN PRN Reason: Nausea and Vomiting Oxycodone HCl (Oxycodone Hcl Immed Release 5 Mg Tablet) 5 mg PO Q6H PRN PRN Reason: Pain, Severe (Pain Scale 7-10) Pharmacy Consult (Consult Rx Perform Med Rec) 1 each MISCELLANE ONCE PRN PRN Reason: Consult order Sodium Chloride (0.9 % Sodium Chloride Flush 3 Ml Syringe) 3 ml IVFLUSH [facility] Home Medications Medication Instructions Recorded Confirmed Last Taken Type galcanezumab-gnlm 120 mg/mL 120 mg subcut Q4W 11/25/21 08/14/22 12/21/21 History subcutaneous pen injector (Emgality Pen) lisinopril 20 mg tablet 20 mg PO DAILY 11/25/21 08/14/22 01/10/22 History metoprolol tartrate 25 mg tablet 25 mg PO BID 11/25/21 08/14/22 01/10/22 History nortriptyline 50 mg capsule 100 mg PO QPM 11/25/21 08/14/22 01/10/22 History sumatriptan succinate 100 mg tablet 100 mg PO DAILY MRX1 migraine 11/25/21 08/14/22 01/11/22 History zolpidem 12.5 mg tablet,extended 12.5 mg PO BEDTIME PRN Insomnia 11/25/21 08/14/22 Unknown History release,multiphase aripiprazole 15 mg tablet 15 mg PO QAM 03/31/22 08/14/22 Unknown History buspirone 15 mg tablet 15 mg PO BID 07/14/22 08/14/22 Unknown History cholecalciferol (vitamin D3) 25 25 mcg PO QAM 07/14/22 08/14/22 Unknown History mcg (1,000 unit) tablet glycerin-witch nereida 12.5 %-50 % 0 pad topical 07/14/22 08/14/22 Unknown History topical pads (A.E.R. Witch Nereida) Physical Exam Vital Signs and Narrative: Vital Signs: Last Vital Signs Temp 98 F 08/14/22 14:37 Pulse 75 08/14/22 14:37 Resp 18 08/14/22 14:37 BP 128/72 08/14/22 14:37 Pulse Ox 98 08/14/22 14:37 BMI result Body Mass Index 28.3 Constitutional - Awake and Alert, No apparent distress Eyes - PERRLA, EOMI Cardiovascular - S1S2, RRR, No edema Respiratory - Normal lung expansion, Normal respiratory effort, No respiratory distress, CTA bilaterally Gastrointestinal - Mild ttp rlq, significant llq ttp with voluntary guarding. ND; +BS; No rebound Extremities - no calf tenderness bilaterally, no swelling Skin - Warm/Dry Neurological - Alert & oriented x3 Psychological - Appropriate affect Results Labs 08/14/22 15:02 08/14/22 15:02 Labs: Laboratory Results - last 24 hr 08/14/22 08/14/22 15:02 15:02 MCV 84.0 MCH 26.7 L MCHC 31.8 RDW 13.3 Plt Count 354 MPV 9.5 Immature Gran % (Auto) 0.3 Neut % (Auto) 48.0 Lymph % (Auto) 43.5 H [place] % (Auto) 6.9 Eos % (Auto) 0.8 Baso % (Auto) 0.5 Lymph # (Auto) 2.8 [place] # (Auto) 0.5 Eos # (Auto) 0.1 Baso # (Auto) 0.0 Abs Immat Gran (auto) 0.02 Absolute Neuts (auto) 3.1 Absolute Nucleated RBC 0.000 Nucleated RBC % (auto) 0.0 Anion Gap 15 Estim Creat Clear Calc 66.5 Estimated GFR > 60 Random Glucose 107 Calcium 10.2 Magnesium 2.1 Total Bilirubin 0.6 AST 21 ALT 21 Alkaline Phosphatase 59 Total Protein 7.9 Albumin 4.7 Lipase 26 Imaging Radiologist's Impressions: Impressions Abdomen/Pelvis CT 08/14/22 16:32 IMPRESSION: Colonic diverticulosis more so in the sigmoid colon. There is more diffuse subtle colonic wall thickening seen in the descending and proximal sigmoid colon. Nonspecific colitis would be suspected with this appearance. With this length of abnormality, infectious or inflammatory causes would be favored. This area of colon had a more normal appearance on the prior CT scan. Assessment and Plan (1) Colitis: Status: Acute Plan 49-year-old female with history of IBS with diarrhea, GERD, history of sigmoid diverticulitis, migraines, and history of colitis to be observed for intractable abdominal pain with acute on chronic diarrhea and PO intolerance. #Acute on chronic colitis- with n,v,d, and PO intolerance -Suspect inflammatory vs infectious -GI panel 07/20 negative. Repeat GI panel and CDiff pcr ordered -renal function electrolytes normal -No leukocytosis, vital stable -Cover with levaquin 750mg qd and flagyl 500mg BID pending GI consult -GI consult -Clear liquid diet for bowel rest -Pain management using pain scale -ondansetron prn # migraines -takes emgality q.4 W # hypertension-BP reasonably controlled -continue lisinopril, metoprolol #IBS-D -continue home meds -advance to high fiber diet #Mood disorder -continue home meds DVT prophylaxis- scp Full code Time Spent With Patient Time: Total time managing care of this patient today ____ minutes. Quality Stroke Does the patient have a stroke diagnosis?: No VTE Prior VTE?: No VTE Risk Level:: Medical - moderate - high VTE Device Contraindication: N/A - Device Ordered VTE Drug Contraindication: Treatment Not Indicated
[2022-08-14] MEDS: Loperamide HCl 2 MG CAPSULE 4 MG PO (19:29)
[2022-08-14] MEDS: Morphine Sulfate 4 MG/ML CARTRIDGE IVPUSH (19:30)
[2022-08-14] MEDS: ondansetron HCL 4 MG/2 ML VIAL IVPUSH (19:30)
[2022-08-14] MEDS: metroNIDAZOLE/NS 500 MG/100 ML PIGGYBACK 100 MG IV (19:35)
[2022-08-14 19:40] VITALS: BP 153/70; PULSE 73; RESP 16; TEMP 36; O2SAT 100
--- NOTE | 2022-08-14 20:26 | PHA.MEDREC ---
Pharmacy Consult ? Medication Reconciliation Pharmacy has completed the medication reconciliation. Patient confirmed medications to the best of her ability. Patient has alosetron and nambuetone on her. Darlin Dodson, LorD
[2022-08-14] MEDS: levoFLOXacin/D5W 750 MG/150 ML PIGGYBACK 100 MG IV (20:36)
--- NOTE | 2022-08-14 20:48 | PC.NURSE ---
pt medicated per APR- pt rec 1L NS, 1st dose of flagyl, currently infusing levofloxacin per order. pt to go to ED overflow
[2022-08-14 20:53] VITALS: BP 116/51; PULSE 64; RESP 16; TEMP 36.8; O2SAT 98
[2022-08-14 20:55] LABS: Appearance Urine Clear; Color Urine Yellow; Glucose Urine UA Negative (Negative); Leukocyte Esterase Urine Negative (Negative); Nitrite Urine Negative (Negative); PH 5.5 (5.0-9.0); Specific Gravity - Urine >= 1.030 (1.005-1.025); Urine Blood Negative (Negative); Urine Ketones 15 mg/dL (Negative); Urine Protein Trace mg/dL (Neg-Trace)
[2022-08-14 22:20] VITALS: BP 120/64; RESP 62; O2SAT 97
[2022-08-14] MEDS: Metoprolol Tartrate 25 MG TABLET PO (22:22)
[2022-08-14] MEDS: 0.9 % Sodium Chloride Flush 3 ML SYRINGE IVFLUSH (22:23)
[2022-08-14] MEDS: busPIRone HCl 5 MG TABLET 15 MG PO (22:23)
[2022-08-14] MEDS: oxyCODONE HCl Immed Release 5 MG TABLET PO (22:28)
[2022-08-14] MEDS: Dicyclomine HCl 10 MG CAPSULE 40 MG PO (23:36)
[2022-08-14] MEDS: Nortriptyline HCl 25 MG CAPSULE 100 MG PO (23:37)
--- NOTE | 2022-08-14 23:47 | PC.NURSE ---
Pt came to the Overflow at around 2200, alert and oreinted, still with LLQ pain, independent, meds given, on bed comfortably. Report given to Yvette in [place] [id number] at 2345. Pt was transported to [facility] per wheelchair by REGULATOR OPERATOR at 2347.
[2022-08-15] VITALS: BP 130/71; PULSE 71; RESP 16; TEMP 36; O2SAT 99
[2022-08-15] MEDS: oxyCODONE HCl Immed Release 5 MG TABLET PO ×3 (01:39→16:21)
[2022-08-15 05:22] LABS: Basophils Percent Auto 0.4 % (0-2); Eosinophils Absolute Auto 0.1 X10*3/uL (0.0-0.4); Eosinophils Percent Auto 1.9 % (0-4); Hematocrit 33.4 % (37.0-47.0); Hemoglobin 10.4 g/dl (12.0-16.0); Imm Gran Abs Auto 0.01 X10*3/uL (0.00-0.03); Imm Gran Pct Auto 0.1 % (0.0-0.4); Lymphocytes Absolute Auto 4.3 X10*3/uL (1.2-4.9); Lymphocytes Percent Auto 61.5 % (20-40); MANUAL DIFF FLAG SCAN; Mean Corpuscular HGB Conc 31.1 g/dl (31.0-35.0); Mean Corpuscular Hemoglobin 26.6 pg (27.0-33.0); Mean Corpuscular Volume 85.4 fL (80.0-98.0); Mean Platelet Volume 9.6 fL (9.4-12.3); Monocytes Absolute Auto 0.5 X10*3/uL (0.1-1.2); Monocytes Percent Auto 6.8 % (2-11); Neutrophils Percent Auto 29.3 % (45-73); Platelet Count 273 X10*3/uL (160-400); Red Blood Count 3.91 X10*6/uL (4.20-5.50); Red Cell Distribution Width 13.3 % (11.0-16.0); SCAN SMEAR FLAG 1; White Blood Count 6.9 X10*3/uL (4.8-10.8)
[2022-08-15 05:32] LABS: SLIDE REVIEW VERIFIED
[2022-08-15 05:37] LABS: Anion Gap 13 (12-20); Blood Urea Nitrogen 9 mg/dL (9-16); Calcium 9.4 mg/dL (8.4-10.2); Carbon Dioxide 23 mmol/L (22-29); Chloride 105 mmol/L (96-108); Creatinine Clr Calc Pharmacy 67.2; Estimated Glomerular Filt Rate > 60; Glucose Random 112 mg/dL (60-115); Sodium 138 mmol/L (135-145)
[2022-08-15 07:04] VITALS: BP 80/40; RESP 16; TEMP 36.1; O2SAT 96
[2022-08-15] MEDS: metroNIDAZOLE/NS 500 MG/100 ML PIGGYBACK 100 MG IV ×2 (07:34→19:57)
[2022-08-15] MEDS: 0.9 % Sodium Chloride 500 ML 250 ML IVCONT (07:34)
[2022-08-15] MEDS: ondansetron HCL 4 MG/2 ML VIAL IVPUSH (07:42)
[2022-08-15] MEDS: SUMAtriptan succinate 100 MG TABLET PO (07:50)
[2022-08-15] MEDS: 0.9 % Sodium Chloride Flush 3 ML SYRINGE IVFLUSH (07:50)
--- NOTE | 2022-08-15 08:00 | P.PNIM_ITS ---
Subjective Subjective Date of Service: 08/15/22 Review of Systems Follow up abd pain still with nausea, no diarrhea Physical Exam Vital Signs: Vital Signs: Last Vital Signs Temp 97 F 08/15/22 07:04 Pulse 71 08/15/22 00:00 Resp 16 08/15/22 07:04 BP 80/40 L 08/15/22 07:04 Pulse Ox 96 08/15/22 07:04 O2 Del Method Room Air 08/15/22 07:04 BMI result Body Mass Index 28.3 Appearing in no acute distress lung sounds are clear to auscultation heart regular rate rhythm, clear S1, S2 positive bowel sounds, abdomen is soft,diffuse tenderness neuro patient is alert x3, no focal deficits Objective Data Active Medications Acetaminophen (Acetaminophen 325 Mg Tablet) 650 mg PO Q6H PRN PRN Reason: Pain, Mild (Pain Scale 1-3) Aripiprazole (Aripiprazole 15 Mg Tablet) 15 mg PO DAILY [facility] Buspirone HCl (Buspirone Hcl 5 Mg Tablet) 15 mg PO BID [facility] Last Admin: 08/14/22 22:23 Dose: 15 mg Documented By: HOMERO Dicyclomine HCl (Dicyclomine Hcl 10 Mg Capsule) 40 mg PO QID [facility] Last Admin: 08/14/22 23:36 Dose: 40 mg Documented By: HOMERO Comments: delayed due to med availability Metronidazole (Flagyl) 500 mg in 100 mls @ 100 mls/hr IV Q12H [facility] Last Admin: 08/15/22 07:34 Dose: 100 mls/hr Documented By: CHERI Levofloxacin (Levaquin) 750 mg in 150 mls @ 100 mls/hr IV Q24H [facility] Last Infusion: 08/14/22 22:25 Dose: 0 mls/hr Documented By: HOMERO Sodium Chloride (Ns) 500 mls @ 250 mls/hr IVCONT .Q2H [facility] Stop: 08/15/22 09:29 Last Admin: 08/15/22 07:34 Dose: 250 mls/hr Documented By: CHERI Sodium Chloride (Ns) 1,000 mls @ 100 mls/hr IVCONT .Q10H [facility] Lisinopril (Lisinopril 20 Mg Tablet) 20 mg PO DAILY [facility]; Protocol Metoprolol Tartrate (Metoprolol Tartrate 25 Mg Tablet) 25 mg PO BID [facility]; Protocol Last Admin: 08/14/22 22:22 Dose: 25 mg Documented By: HOMERO Comments: BP 120/64 h 62 Non-Formulary Medication (Budesonide) 9 mg PO DAILY [facility] Pt Own (Nabumetone (750 Mg Tablet)) 750 mg PO BID [facility] Pt Own (Alosetron [ Lotronex] 0.5 Mg Tablet) 1 mg PO BID [facility] Nortriptyline HCl (Nortriptyline Hcl 25 Mg Capsule) 100 mg PO BEDTIME [facility] Last Admin: 08/14/22 23:37 Dose: 100 mg Documented By: HOMERO Comments: delayed due to med availability Omeprazole (Omeprazole 20 Mg Capsule.Dr) 20 mg PO DAILY [facility] Ondansetron HCl (Ondansetron Hcl 4 Mg/2 Ml Vial) 4 mg IVPUSH Q8H PRN PRN Reason: Nausea and Vomiting Last Admin: 08/15/22 07:42 Dose: 4 mg Documented By: CHERI Oxycodone HCl (Oxycodone Hcl Immed Release 5 Mg Tablet) 5 mg PO Q3H PRN PRN Reason: Pain, Severe (Pain Scale 7-10) Last Admin: 08/15/22 01:39 Dose: 5 mg Documented By: JANIE Pharmacy Consult (Consult Rx Perform Med Rec) 1 each MISCELLANE ONCE PRN PRN Reason: Consult order Sodium Chloride (0.9 % Sodium Chloride Flush 3 Ml Syringe) 3 ml IVFLUSH QSHIFT [facility] Last Admin: 08/15/22 07:50 Dose: 3 ml Documented By: CHERI Sumatriptan Succinate (Sumatriptan Succinate 100 Mg Tablet) 100 mg PO DAILY MRX1 [facility] Last Admin: 08/15/22 07:50 Dose: 100 mg Documented By: CHERI Zolpidem Tartrate (Zolpidem Tartrate 5 Mg Tablet) 5 mg PO BEDTIME PRN PRN Reason: Insomnia Labs 08/15/22 05:05 08/15/22 05:05 Labs: Laboratory Results - last 24 hr 08/14/22 08/14/22 08/14/22 15:02 15:02 20:42 MCV 84.0 MCH 26.7 L MCHC 31.8 RDW 13.3 Plt Count 354 MPV 9.5 Immature Gran % (Auto) 0.3 Neut % (Auto) 48.0 Lymph % (Auto) 43.5 H [place] % (Auto) 6.9 Eos % (Auto) 0.8 Baso % (Auto) 0.5 Lymph # (Auto) 2.8 [place] # (Auto) 0.5 Eos # (Auto) 0.1 Baso # (Auto) 0.0 Abs Immat Gran (auto) 0.02 Absolute Neuts (auto) 3.1 Absolute Nucleated RBC 0.000 Nucleated RBC % (auto) 0.0 Smear Tech's Comments Anion Gap 15 Estim Creat Clear Calc 66.5 Estimated GFR > 60 Random Glucose 107 Calcium 10.2 Magnesium 2.1 Total Bilirubin 0.6 AST 21 ALT 21 Alkaline Phosphatase 59 Total Protein 7.9 Albumin 4.7 Lipase 26 Urine Color Yellow Urine Appearance Clear Urine pH 5.5 Ur Specific [place] >= 1.030 H Urine Protein Trace Urine Glucose (UA) Negative Urine Ketones 15 Urine Blood Negative Urine Nitrite Negative Ur Leukocyte Esterase Negative 08/15/22 08/15/22 05:05 05:05 MCV 85.4 MCH 26.6 L MCHC 31.1 RDW 13.3 Plt Count 273 MPV 9.6 Immature Gran % (Auto) 0.1 Neut % (Auto) 29.3 L Lymph % (Auto) 61.5 H [place] % (Auto) 6.8 Eos % (Auto) 1.9 Baso % (Auto) 0.4 Lymph # (Auto) 4.3 [place] # (Auto) 0.5 Eos # (Auto) 0.1 Baso # (Auto) 0.0 Abs Immat Gran (auto) 0.01 Absolute Neuts (auto) 2.0 Absolute Nucleated RBC 0.000 Nucleated RBC % (auto) 0.0 Smear Tech's Comments VERIFIED Anion Gap 13 Estim Creat Clear Calc 67.2 Estimated GFR > 60 Random Glucose 112 Calcium 9.4 D Magnesium Total Bilirubin AST ALT Alkaline Phosphatase Total Protein Albumin Lipase Urine Color Urine Appearance Urine pH Ur Specific [place] Urine Protein Urine Glucose (UA) Urine Ketones Urine Blood Urine Nitrite Ur Leukocyte Esterase Assessment and Plan (1) Colitis: Status: Acute Plan 49-year-old female with history of IBS with diarrhea, GERD, history of sigmoid diverticulitis, migraines, and history of colitis to be observed for intractable abdominal pain with acute on chronic diarrhea and PO intolerance. Acute on chronic colitis Suspect inflammatory vs infectious neg cdiff and stool studies levaquin 750mg qd and flagyl 500mg BID GI following>rec continue abx for now, possible flex sig on Clear liquid diet Antiemetics as needed migraines takes emgality q.4 W hypertension-BP reasonably controlled continue lisinopril, metoprolol Irritable bowel Syndrome with diarrhea Mood disorder continue home meds DVT prophylaxis- scd Full code attending Dr. Hunter Continue hospitalization for treatment of acute chronic colitis requiring IV antibiotics Time Spent With Patient Time: Total time managing care of this patient today ____ minutes. Quality Stroke Does the patient have a stroke diagnosis?: No VTE Prior VTE?: No VTE Risk Level:: Medical - moderate - high VTE Device Contraindication: N/A - Device Ordered VTE Drug Contraindication: Treatment Not Indicated
[2022-08-15] MEDS: Dicyclomine HCl 10 MG CAPSULE 40 MG PO ×4 (08:57→20:33)
[2022-08-15] MEDS: 0.9 % Sodium Chloride 1,000 ML 100 ML IVCONT ×2 (09:40→17:36)
--- NOTE | 2022-08-15 10:14 | P.CNGI_ITS ---
History of Present Illness Data of Consult Service Date: 08/15/22 Requesting physician: Valery Brooks Primary Care Provider: Claribel Grissom MD HPI Reason for consult: abdominal pain 49-year-old female with history of IBS with diarrhea, GERD, history of sigmoid diverticulitis, migraines, being seen for abdominal pain. Patient has been having consistent and constant LLQ pain for 2 weeks, worse with movement, better when sitting upright and still, assoc with loose stools up to 13 episodes a day as well as nausea and non bloody emesis. She has poor appetite.Pain not relieved by passing gas or stool, not worse with food. She denies any fevers, chills, melena, urinary issues, shortness of breath, chest pain.? No bad foods recently or recent travel. She does have chronic lower back pain. She does mention she has been having similar symptoms on and off from months to years Data: Colonoscopy in 05/2022 which showed diverticulosis, tubular adenoma, and hemorrhoids. LabS; Hgb- 10-11 g/dl--close to her baseline.? Renal function normal, mild low K GI panel was collected on 07/20 which was negative.? . Imaging: CT abdomen/pelvis: colonic diverticulosis mostly in the sigmoid colon as well as more diffuse subtle colonic wall thickening seen in the descending and proximal sigmoid colon consistent with nonspecific colitis, Review of Systems Review of Systems: Constitutional : No Fever, No Chills ENT/Mouth : No sore throat, No Rhinorrhea Eyes: No Swelling, No Redness Cardiovascular : No Chest Pain, No SOB, No Edema Respiratory : No Cough, No Sputum, No Wheezing Gastrointestinal : see HPI Genitourinary : NO Dysuria, No Urinary Frequency, No Hematuria, No Urgency Musculoskeletal : No joint pain, No Myalgias, No Joint Swelling Skin : No Skin Lesions, No rash Neuro : No Weakness, No Numbness, No Dizziness, No Headache Psych : No Anxiety/Panic, No Depression Heme/Lymph: No Bruising, No Lymphadenopathy Endocrine : No Polyuria, No Polydipsia All other systems reviewed and are negative. [facility] Past Medical History Medical History (Updated 08/14/22 @ 19:41 by RADHA Chandra) Acute diverticulitis Chronic idiopathic constipation Constipation Diarrhea GERD (gastroesophageal reflux disease) Irritable bowel syndrome with diarrhea Left lower quadrant pain Sigmoid diverticulitis Tubular adenoma of colon Family History Family History Father Cancer HTN (hypertension) Mother HTN (hypertension) Hyperthyroidism Migraine headache Maternal Grandmother History of breast cancer Paternal Grandmother History of breast cancer Family/Other Colon cancer Paternal Aunt Ovarian cancer Surgical History Surgical History History of esophagogastroduodenoscopy (EGD) History of intestinal surgery History of partial hysterectomy (~09/2006) Hx of colonoscopy Hx of hemorrhoidectomy Social History Social History Household Members: None Housing: Apartment Do you presently have visiting nurse or other home services: No Alcohol intake: never Patient Tobacco Use Status: Never used Tobacco Smoked in Last 30 Days: No Use of substances other than those prescribed or required for medical reasons: No Advance Directives: No Advance Directives Information Provided: No Nutrition Risks: No Nutritional Risk service: No Current occupational status: disabled Meds Allergies Allergy/AdvReac Type Severity Reaction Status Date / Time Penicillins [PENICILLINS] Allergy Intermediate HIVES/SWELL Verified 08/14/22 14:37 ING bupropion [From Wellbutrin] Allergy hives, Verified 08/14/22 14:37 swelling Active Medications: Current Medications Acetaminophen (Acetaminophen 325 Mg Tablet) 650 mg PO Q6H PRN PRN Reason: Pain, Mild (Pain Scale 1-3) Aripiprazole (Aripiprazole 15 Mg Tablet) 15 mg PO DAILY [facility] Buspirone HCl (Buspirone Hcl 5 Mg Tablet) 15 mg PO BID [facility] Last Admin: 08/14/22 22:23 Dose: 15 mg Dicyclomine HCl (Dicyclomine Hcl 10 Mg Capsule) 40 mg PO QID [facility] Last Admin: 08/15/22 08:57 Dose: 40 mg Metronidazole (Flagyl) 500 mg in 100 mls @ 100 mls/hr IV Q12H [facility] Last Infusion: 08/15/22 08:38 Dose: Infused Levofloxacin (Levaquin) 750 mg in 150 mls @ 100 mls/hr IV Q24H [facility] Last Infusion: 08/14/22 22:25 Dose: Infused Sodium Chloride (Ns) 1,000 mls @ 100 mls/hr IVCONT .Q10H [facility] Last Admin: 08/15/22 09:40 Dose: 100 mls/hr Lisinopril (Lisinopril 20 Mg Tablet) 20 mg PO DAILY [facility]; Protocol Metoprolol Tartrate (Metoprolol Tartrate 25 Mg Tablet) 25 mg PO BID [facility]; Protocol Last Admin: 08/14/22 22:22 Dose: 25 mg Non-Formulary Medication (Budesonide) 9 mg PO DAILY [facility] Pt Own (Nabumetone (750 Mg Tablet)) 750 mg PO BID [facility] Pt Own (Alosetron [ Lotronex] 0.5 Mg Tablet) 1 mg PO BID [facility] Nortriptyline HCl (Nortriptyline Hcl 25 Mg Capsule) 100 mg PO BEDTIME [facility] Last Admin: 08/14/22 23:37 Dose: 100 mg Omeprazole (Omeprazole 20 Mg Capsule.Dr) 20 mg PO DAILY [facility] Ondansetron HCl (Ondansetron Hcl 4 Mg/2 Ml Vial) 4 mg IVPUSH Q8H PRN PRN Reason: Nausea and Vomiting Last Admin: 08/15/22 07:42 Dose: 4 mg Oxycodone HCl (Oxycodone Hcl Immed Release 5 Mg Tablet) 5 mg PO Q3H PRN PRN Reason: Pain, Severe (Pain Scale 7-10) Last Admin: 08/15/22 08:56 Dose: 5 mg Pharmacy Consult (Consult Rx Perform Med Rec) 1 each MISCELLANE ONCE PRN PRN Reason: Consult order Sodium Chloride (0.9 % Sodium Chloride Flush 3 Ml Syringe) 3 ml IVFLUSH QSHIFT [facility] Last Admin: 08/15/22 07:50 Dose: 3 ml Sumatriptan Succinate (Sumatriptan Succinate 100 Mg Tablet) 100 mg PO DAILY MRX1 [facility] Last Admin: 08/15/22 07:50 Dose: 100 mg Zolpidem Tartrate (Zolpidem Tartrate 5 Mg Tablet) 5 mg PO BEDTIME PRN PRN Reason: Insomnia Home Medications Medication Instructions Recorded Confirmed Last Taken Type galcanezumab-gnlm 120 mg/mL 120 mg subcut Q4W 11/25/21 08/14/22 12/21/21 History subcutaneous pen injector (Emgality Pen) lisinopril 20 mg tablet 20 mg PO DAILY 11/25/21 08/14/22 01/10/22 History metoprolol tartrate 25 mg tablet 25 mg PO BID 11/25/21 08/14/22 01/10/22 History nortriptyline 50 mg capsule 100 mg PO QPM 11/25/21 08/14/22 01/10/22 History sumatriptan succinate 100 mg tablet 100 mg PO DAILY MRX1 migraine 11/25/21 08/14/22 01/11/22 History zolpidem 12.5 mg tablet,extended 12.5 mg PO BEDTIME PRN Insomnia 11/25/21 08/14/22 Unknown History release,multiphase aripiprazole 15 mg tablet 15 mg PO QAM 03/31/22 08/14/22 Unknown History buspirone 15 mg tablet 15 mg PO BID 07/14/22 08/14/22 Unknown History Physical Exam Vital Signs: Vital Signs: Last Vital Signs Temp 97 F 08/15/22 07:04 Pulse 71 08/15/22 00:00 Resp 16 08/15/22 07:04 BP 80/40 L 08/15/22 07:04 Pulse Ox 96 08/15/22 07:04 O2 Del Method Room Air 08/15/22 07:04 BMI result Body Mass Index 28.3 EXAM: GENERAL: The patient is well developed and nontoxic. VITAL SIGNS:see workflow HEENT: Nonicteric sclerae, PERRLA, EOMI. Oropharynx clear. Moist mucous membranes. Conjunctivae appear well perfused. No thyroid mass. CHEST: Chest wall is nontender. HEART: Regular rate and rhythm without murmurs. LUNGS: Clear to auscultation bilaterally. ABDOMEN: Soft, positive bowel sounds, tender LLQ, no organomegaly.no flank tenderness SKIN: No rash, no excessive bruising, petechiae, or purpura. NEUROLOGIC: Cranial nerves II-XII intact without motor/sensory deficit. Spine; tender lower lumbar, palpation worsens pain in the LLQ Results Labs 08/15/22 05:05 08/15/22 05:05 Labs: Short CBC 08/14/22 08/15/22 Range/Units 15:02 05:05 WBC 6.5 6.9 (4.8-10.8) X10*3/uL Hgb 13.5 10.4 L D (12.0-16.0) g/dl Hct 42.5 33.4 L D (37.0-47.0) % Plt Count 354 273 (160-400) X10*3/uL BMP 08/14/22 08/15/22 15:02 05:05 Sodium 140 138 Potassium 3.7 3.0 L Chloride 102 105 Carbon Dioxide 27 23 BUN 12 9 Creatinine 0.88 0.87 Calcium 10.2 9.4 D Liver Function 08/14/22 Range/Units 15:02 Total Bilirubin 0.6 (0.0-1.0) mg/dL AST 21 (5-31) U/L ALT 21 (0-31) U/L Alkaline Phosphatase 59 (39-117) U/L Albumin 4.7 (3.5-5.0) g/dL Urine 08/14/22 Range/Units 20:42 Urine Color Yellow Urine Appearance Clear Urine pH 5.5 (5.0-9.0) Ur Specific [place] >= 1.030 H (1.005-1.025) Urine Protein Trace (Neg-Trace) mg/dL Urine Glucose (UA) Negative (Negative) mg/dL Imaging CT scan - abdomen: Attestation: I personally reviewed and interpreted this imaging study as follows: (diveticulosis, mild stranding, scoliosis of spine) Assessment and Plan (1) Colitis: Status: Acute (2) Diverticulitis: Status: Acute (3) Abdominal pain: Status: Acute Plan 1/ Acute on chronic lower abdominal pain could be from SCAD (segmental colitis from diverticulosis), vs infectious or inflammatory colitis.. There may also be referred pain from the spine. Other noyola urine is unremarkable and no other lesions or masses in imaging, recent colonoscopy was reassuring as well PLAN: 1/ cont with ABX as doing- 2/ if ongoing sx then flex sig and bx 3/ check stool for GI stool pcr panel and c diff 4/ if ongoing sx and above neg then MR spine to r/o spinal lesions Time Spent With Patient Time: Total time managing care of this patient today ____ minutes. Procedures Date of Service Date of Service: 08/15/22
[2022-08-15 10:24] VITALS: BP 109/52
[2022-08-15] MEDS: Potassium Chloride ER 20 MEQ TAB.ER.PRT 40 MEQ PO (10:24)
[2022-08-15] MEDS: Omeprazole 20 MG CAPSULE.DR PO (10:25)
[2022-08-15] MEDS: busPIRone HCl 5 MG TABLET 15 MG PO ×2 (10:25→20:34)
[2022-08-15] MEDS: ARIPiprazole 15 MG TABLET PO (10:25)
--- NOTE | 2022-08-15 11:42 | PC.NURSE ---
BP 80/40. Patient asymptomatic. Reporting headache. Provider notified. IV fluid bolus and IV continuous ordered. BP 109/52 at present.
[2022-08-15] MEDS: Morphine Sulfate 2 MG/ML CARTRIDGE 1 MG IVPUSH ×2 (14:34→19:53)
--- NOTE | 2022-08-15 15:48 | MHC.CM.PN ---
pt lives alone has no servceis ,and own ride home
[2022-08-15 15:58] VITALS: BP 120/60; PULSE 56; RESP 20; TEMP 36.5; O2SAT 97
[2022-08-15 19:22] VITALS: BP 132/70; PULSE 68; RESP 18; TEMP 35.2; O2SAT 95
[2022-08-15] MEDS: Metoprolol Tartrate 25 MG TABLET PO (20:33)
[2022-08-15] MEDS: Nortriptyline HCl 25 MG CAPSULE 100 MG PO (20:34)
[2022-08-15] MEDS: levoFLOXacin/D5W 750 MG/150 ML PIGGYBACK 100 MG IV (21:29)
[2022-08-16 04:05] LABS: CDiff Gene PCR POSITIVE (Negative)
[2022-08-16 04:41] LABS: CDIFF Internal ctrl Dots and bkg OK (V); CDiff Toxin Negative (Negative)
[2022-08-16] MEDS: 0.9 % Sodium Chloride 1,000 ML 100 ML IVCONT ×2 (05:30→13:29)
[2022-08-16 06:33] LABS: Anion Gap 11 (12-20); Blood Urea Nitrogen 7 mg/dL (9-16); Calcium 8.9 mg/dL (8.4-10.2); Carbon Dioxide 24 mmol/L (22-29); Chloride 108 mmol/L (96-108); Estimated Glomerular Filt Rate > 60; Glucose Random 88 mg/dL (60-115); Potassium 3.7 mmol/L (3.3-5.1); Sodium 139 mmol/L (135-145)
[2022-08-16 07:18] VITALS: BP 104/61; PULSE 63; RESP 18; TEMP 35.7; O2SAT 95
[2022-08-16] MEDS: metroNIDAZOLE/NS 500 MG/100 ML PIGGYBACK 100 MG IV (08:58)
[2022-08-16] MEDS: ARIPiprazole 15 MG TABLET PO (08:59)
[2022-08-16] MEDS: SUMAtriptan succinate 100 MG TABLET PO (09:00)
[2022-08-16] MEDS: Metoprolol Tartrate 25 MG TABLET PO ×2 (09:01→20:50)
[2022-08-16] MEDS: oxyCODONE HCl Immed Release 5 MG TABLET PO ×2 (09:01→16:58)
[2022-08-16] MEDS: Omeprazole 20 MG CAPSULE.DR PO (09:01)
[2022-08-16] MEDS: busPIRone HCl 5 MG TABLET 15 MG PO ×2 (09:02→20:50)
[2022-08-16] MEDS: vancomycin HCL 125 MG CAPSULE PO ×3 (09:50→20:50)
--- NOTE | 2022-08-16 11:36 | P.PNIM_ITS ---
Subjective Subjective Date of Service: 08/16/22 Review of Systems Follow up abd pain still with nausea, no diarrhea Physical Exam Vital Signs: Vital Signs: Last Vital Signs Temp 96.2 F L 08/16/22 07:18 Pulse 63 08/16/22 07:18 Resp 18 08/16/22 07:18 BP 104/61 08/16/22 07:18 Pulse Ox 95 08/16/22 07:18 O2 Del Method Room Air 08/16/22 07:18 BMI result Body Mass Index 28.3 Appearing in no acute distress lung sounds are clear to auscultation heart regular rate rhythm, clear S1, S2 positive bowel sounds, abdomen is soft, nontender neuro patient is alert x3, no focal deficits Objective Data Active Medications Acetaminophen (Acetaminophen 325 Mg Tablet) 650 mg PO Q6H PRN PRN Reason: Pain, Mild (Pain Scale 1-3) Aripiprazole (Aripiprazole 15 Mg Tablet) 15 mg PO DAILY [facility] Last Admin: 08/16/22 08:59 Dose: 15 mg Documented By: LACEY Buspirone HCl (Buspirone Hcl 5 Mg Tablet) 15 mg PO BID [facility] Last Admin: 08/16/22 09:02 Dose: 15 mg Documented By: LACEY Dicyclomine HCl (Dicyclomine Hcl 10 Mg Capsule) 40 mg PO QID [facility] Last Admin: 08/16/22 11:26 Dose: Not Given Documented By: LACEY Non-Admin Reason: Med Not Available Metronidazole (Flagyl) 500 mg in 100 mls @ 100 mls/hr IV Q12H [facility] Last Admin: 08/16/22 08:58 Dose: 100 mls/hr Documented By: LACEY Levofloxacin (Levaquin) 750 mg in 150 mls @ 100 mls/hr IV Q24H [facility] Last Infusion: 08/15/22 23:32 Dose: 0 mls/hr Documented By: SHARONDA Sodium Chloride (Ns) 1,000 mls @ 100 mls/hr IVCONT .Q10H [facility] Last Admin: 08/16/22 05:30 Dose: 100 mls/hr Documented By: SHARONDA Lisinopril (Lisinopril 20 Mg Tablet) 20 mg PO DAILY [facility]; Protocol Metoprolol Tartrate (Metoprolol Tartrate 25 Mg Tablet) 25 mg PO BID [facility]; Protocol Last Admin: 08/16/22 09:01 Dose: 25 mg Documented By: LACEY Morphine Sulfate (Morphine Sulfate 2 Mg/Ml Cartridge) 1 mg IVPUSH Q4H PRN; Protocol PRN Reason: abdominal pain Last Admin: 08/15/22 19:53 Dose: 1 mg Documented By: SHARONDA Non-Formulary Medication (Budesonide) 9 mg PO DAILY [facility] Pt Own (Nabumetone (750 Mg Tablet)) 750 mg PO BID [facility] Last Admin: 08/16/22 09:50 Dose: 750 mg Documented By: LACEY Pt Own (Alosetron [ Lotronex] 0.5 Mg Tablet) 1 mg PO BID [facility] Last Admin: 08/16/22 09:51 Dose: 1 mg Documented By: LACEY Nortriptyline HCl (Nortriptyline Hcl 25 Mg Capsule) 100 mg PO BEDTIME [facility] Last Admin: 08/15/22 20:34 Dose: 100 mg Documented By: SHARONDA Omeprazole (Omeprazole 20 Mg Capsule.) 20 mg PO DAILY [facility] Last Admin: 08/16/22 09:01 Dose: 20 mg Documented By: LACEY Ondansetron HCl (Ondansetron Hcl 4 Mg/2 Ml Vial) 4 mg IVPUSH Q8H PRN PRN Reason: Nausea and Vomiting Last Admin: 08/15/22 07:42 Dose: 4 mg Documented By: CHERI Oxycodone HCl (Oxycodone Hcl Immed Release 5 Mg Tablet) 5 mg PO Q3H PRN PRN Reason: Pain, Severe (Pain Scale 7-10) Last Admin: 08/16/22 09:01 Dose: 5 mg Documented By: LACEY Pharmacy Consult (Consult Rx Perform Med Rec) 1 each MISCELLANE ONCE PRN PRN Reason: Consult order Sodium Chloride (0.9 % Sodium Chloride Flush 3 Ml Syringe) 3 ml IVFLUSH QSHIFT [facility] Last Admin: 08/16/22 08:59 Dose: Not Given Documented By: LACEY Non-Admin Reason: IV Running Sumatriptan Succinate (Sumatriptan Succinate 100 Mg Tablet) 100 mg PO DAILY MRX1 [facility] Last Admin: 08/16/22 09:00 Dose: 100 mg Documented By: LACEY Vancomycin HCl (Vancomycin Hcl 125 Mg Capsule) 125 mg PO Q6H [facility] Stop: 08/26/22 08:59 Last Admin: 08/16/22 09:50 Dose: 125 mg Documented By: LACEY Zolpidem Tartrate (Zolpidem Tartrate 5 Mg Tablet) 5 mg PO BEDTIME PRN PRN Reason: Insomnia Labs 08/15/22 05:05 08/16/22 05:40 Labs: Laboratory Results - last 24 hr 08/16/22 08/16/22 03:01 05:40 Anion Gap 11 L Estim Creat Clear Calc 74.0 Estimated GFR > 60 Random Glucose 88 Calcium 8.9 C. difficile Tox B Gene POSITIVE A* C. difficile Toxin A&B Negative C. difficile Interpret SEE NOTE Assessment and Plan (1) Colitis: Status: Acute Plan 49-year-old female with history of IBS with diarrhea, GERD, history of sigmoid diverticulitis, migraines, and history of colitis to be observed for intractable abdominal pain with acute on chronic diarrhea and PO intolerance. Acute on chronic colitis secondary to cdiff s/p levaquin 750mg qd and flagyl 500mg BID, stopped as per GI GI following>rec continue abx for now, possible flex sig on but not much colitis suspected, symptoms likely from cdiff Clear liquid diet for now, advance as tolerated Oral vancomycin for 10 days migraines takes emgality q.4 W hypertension-BP reasonably controlled continue lisinopril, metoprolol Irritable bowel Syndrome with diarrhea Mood disorder continue home meds DVT prophylaxis- scd Full code attending Dr. Hunter Continue hospitalization for treatment of acute chronic colitis requiring IV antibiotics Time Spent With Patient Time: Total time managing care of this patient today ____ minutes. Quality Stroke Does the patient have a stroke diagnosis?: No VTE Prior VTE?: No VTE Risk Level:: Medical - moderate - high VTE Device Contraindication: N/A - Device Ordered VTE Drug Contraindication: Treatment Not Indicated
--- NOTE | 2022-08-16 13:25 | MHC.CM.PN ---
Per MD rounds no discharge today. Patient is receiving IV ABX and IV fluids, Vanco has been added as well. DP home self care. Patient will arrange for transport home.
[2022-08-16] MEDS: Dicyclomine HCl 10 MG CAPSULE 40 MG PO ×3 (13:29→20:50)
[2022-08-16 15:17] VITALS: BP 112/64; PULSE 57; RESP 18; TEMP 36.1; O2SAT 99
[2022-08-16 16:03] LABS: Adenovirus F 40/41 Not Detected (Not Detect.); Astrovirus Not Detected (Not Detect.); Campylobacter Not Detected (Not Detect.); Cryptosporidium Not Detected (Not Detect.); Cyclospora cayetanensis Not Detected (Not Detect.); E. coli EAEC Not Detected (Not Detect.); E. coli EPEC Not Detected (Not Detect.); E. coli ETEC Not Detected (Not Detect.); E. coli STEC Not Detected (Not Detect.); Entamoeba histolytica Not Detected (Not Detect.); Giardia lamblia Not Detected (Not Detect.); Norovirus GI/GII Not Detected (Not Detect.); Plesiomonas shigelloides Not Detected (Not Detect.); Rotavirus A Not Detected (Not Detect.); Salmonella Not Detected (Not Detect.); Sapovirus Not Detected (Not Detect.); Shigella sp./EIEC Not Detected (Not Detect.); Vibrio Not Detected (Not Detect.); Vibrio Cholerae Not Detected (Not Detect.); Yersinia enterocolitica Not Detected (Not Detect.)
[2022-08-16] MEDS: Nortriptyline HCl 25 MG CAPSULE 100 MG PO (20:50)
[2022-08-16] MEDS: Morphine Sulfate 2 MG/ML CARTRIDGE 1 MG IVPUSH (20:51)
[2022-08-17] VITALS: BP 110/55; PULSE 61; RESP 20; TEMP 36.3; O2SAT 98
[2022-08-17] MEDS: vancomycin HCL 125 MG CAPSULE PO ×4 (03:20→20:54)
[2022-08-17 07:49] VITALS: BP 101/57; PULSE 63; RESP 18; TEMP 36.3; O2SAT 96
[2022-08-17] MEDS: ARIPiprazole 15 MG TABLET PO (08:34)
[2022-08-17] MEDS: Omeprazole 20 MG CAPSULE.DR PO (08:34)
[2022-08-17] MEDS: busPIRone HCl 5 MG TABLET 15 MG PO ×2 (08:34→20:54)
[2022-08-17] MEDS: Dicyclomine HCl 10 MG CAPSULE 40 MG PO ×4 (08:35→20:54)
[2022-08-17] MEDS: Metoprolol Tartrate 25 MG TABLET PO ×2 (08:35→20:54)
[2022-08-17] MEDS: 0.9 % Sodium Chloride 1,000 ML 100 ML IVCONT ×3 (08:36→18:54)
[2022-08-17 10:01] LABS: Hematocrit 34.2 % (37.0-47.0); Hemoglobin 10.7 g/dl (12.0-16.0); Mean Corpuscular HGB Conc 31.3 g/dl (31.0-35.0); Mean Corpuscular Hemoglobin 26.8 pg (27.0-33.0); Mean Corpuscular Volume 85.5 fL (80.0-98.0); Mean Platelet Volume 9.7 fL (9.4-12.3); Platelet Count 239 X10*3/uL (160-400); Red Cell Distribution Width 13.6 % (11.0-16.0); White Blood Count 4.1 X10*3/uL (4.8-10.8)
[2022-08-17] MEDS: oxyCODONE HCl Immed Release 5 MG TABLET PO ×2 (14:00→19:26)
[2022-08-17 15:20] VITALS: BP 121/56; PULSE 68; RESP 18; TEMP 36.6; O2SAT 98
--- NOTE | 2022-08-17 17:00 | HO.PM.IMPN ---
Subjective Subjective Date of Service: 08/17/22 Interval History: seen and examined this morning follow up for cdif history was obtained with the assistance of a decorating equipment setter still having abdominal discomfort, multiple episodes of non-bloody diarrhea Review of Systems Review of Systems: Yes all other systems are reviewed and are negative Constitutional Constitutional: Denies chills and Denies fever(s) ENT Ears, Nose, Mouth, and Throat: Denies dizziness Cardiovascular Cardiovascular: Denies chest pain, Denies palpitations and Denies dyspnea Respiratory Respiratory: Denies cough and Denies dyspnea Gastrointestinal Gastrointestinal: Reports abdominal pain, Reports diarrhea, Denies nausea and Denies vomiting Neurologic Neurologic: Denies dizziness Endocrine Endocrine: Denies palpitations Physical Exam Vital Signs: Vital Signs: Last Vital Signs Temp 97.9 F 08/17/22 15:20 Pulse 68 08/17/22 15:20 Resp 18 08/17/22 15:20 BP 121/56 L 08/17/22 15:20 Pulse Ox 98 08/17/22 15:20 O2 Del Method Room Air 08/17/22 15:20 BMI result Body Mass Index 28.3 Const: General: cooperative, comfortable, no acute distress, alert and awake Nutritional Appearance: average body habitus Orientation/consciousness: patient oriented x3 Resp: Effort & Inspection: normal respiratory effort, able to speak in complete sentences, no respiratory distress and no use of accessory muscles Auscultation: clear to auscultation bilaterally Cardio: Rate: regular rate Heart sounds: S1 normal heart sound present and S2 normal heart sound present GI: Other: left side tenderness, mild, no guarding, no rebound Inspection: No distended Palpation (GI): Soft to palpation Neuro: General: patient oriented x3, moves all extremities and CN's II-XI intact bilaterally Extrem: General: Yes no pedal edema Objective Data Active Medications Acetaminophen (Acetaminophen 325 Mg Tablet) 650 mg PO Q6H PRN PRN Reason: Pain, Mild (Pain Scale 1-3) Aripiprazole (Aripiprazole 15 Mg Tablet) 15 mg PO DAILY [facility] Last Admin: 08/17/22 08:34 Dose: 15 mg Documented By: LACEY Buspirone HCl (Buspirone Hcl 5 Mg Tablet) 15 mg PO BID [facility] Last Admin: 08/17/22 08:34 Dose: 15 mg Documented By: LACEY Dicyclomine HCl (Dicyclomine Hcl 10 Mg Capsule) 40 mg PO QID [facility] Last Admin: 08/17/22 14:00 Dose: 40 mg Documented By: LACEY Sodium Chloride (Ns) 1,000 mls @ 100 mls/hr IVCONT .Q10H [facility] Last Admin: 08/17/22 09:42 Dose: 100 mls/hr Documented By: LACEY Lisinopril (Lisinopril 20 Mg Tablet) 20 mg PO DAILY [facility]; Protocol Metoprolol Tartrate (Metoprolol Tartrate 25 Mg Tablet) 25 mg PO BID [facility]; Protocol Last Admin: 08/17/22 08:35 Dose: 25 mg Documented By: LACEY Morphine Sulfate (Morphine Sulfate 2 Mg/Ml Cartridge) 1 mg IVPUSH Q4H PRN; Protocol PRN Reason: abdominal pain Last Admin: 08/16/22 20:51 Dose: 1 mg Documented By: SHARONDA Non-Formulary Medication (Budesonide) 9 mg PO DAILY [facility] Pt Own (Nabumetone (750 Mg Tablet)) 750 mg PO BID [facility] Last Admin: 08/17/22 08:34 Dose: 750 mg Documented By: LACEY Pt Own (Alosetron [ Lotronex] 0.5 Mg Tablet) 1 mg PO BID [facility] Last Admin: 08/17/22 08:33 Dose: 1 mg Documented By: LACEY Nortriptyline HCl (Nortriptyline Hcl 25 Mg Capsule) 100 mg PO BEDTIME [facility] Last Admin: 08/16/22 20:50 Dose: 100 mg Documented By: SHARONDA Omeprazole (Omeprazole 20 Mg Capsule.) 20 mg PO DAILY [facility] Last Admin: 08/17/22 08:34 Dose: 20 mg Documented By: LACEY Ondansetron HCl (Ondansetron Hcl 4 Mg/2 Ml Vial) 4 mg IVPUSH Q8H PRN PRN Reason: Nausea and Vomiting Last Admin: 08/15/22 07:42 Dose: 4 mg Documented By: CHERI Oxycodone HCl (Oxycodone Hcl Immed Release 5 Mg Tablet) 5 mg PO Q3H PRN PRN Reason: Pain, Severe (Pain Scale 7-10) Last Admin: 08/17/22 14:00 Dose: 5 mg Documented By: LACEY Pharmacy Consult (Consult Rx Perform Med Rec) 1 each MISCELLANE ONCE PRN PRN Reason: Consult order Sodium Chloride (0.9 % Sodium Chloride Flush 3 Ml Syringe) 3 ml IVFLUSH QSHIFT [facility] Last Admin: 08/17/22 15:06 Dose: Not Given Documented By: LACEY Non-Admin Reason: IV Running Sumatriptan Succinate (Sumatriptan Succinate 100 Mg Tablet) 100 mg PO DAILY MRX1 PRN PRN Reason: migraine Vancomycin HCl (Vancomycin Hcl 125 Mg Capsule) 125 mg PO Q6H [facility] Stop: 08/26/22 08:59 Last Admin: 08/17/22 14:00 Dose: 125 mg Documented By: LACEY Zolpidem Tartrate (Zolpidem Tartrate 5 Mg Tablet) 5 mg PO BEDTIME PRN PRN Reason: Insomnia Labs 08/17/22 09:27 08/16/22 05:40 Labs: Laboratory Results - last 24 hr 08/17/22 09:27 MCV 85.5 MCH 26.8 L MCHC 31.3 RDW 13.6 Plt Count 239 MPV 9.7 Absolute Nucleated RBC 0.000 Nucleated RBC % (auto) 0.0 Assessment and Plan (1) Colitis: Status: Acute Plan This is a 49-year-old female with history of IBS with diarrhea, GERD, history of sigmoid diverticulitis, migraines, and history of colitis here with intractable abdominal pain with acute on chronic diarrhea and PO intolerance found to have cdif Acute on chronic colitis secondary to cdiff initially treated with levaquin/flagyl, stopped as per GI GI following>symptoms likely from cdiff Clear liquid diet for now, advance as tolerated continue Oral vancomycin for 10 days migraines takes emgality q.4 W hypertension-BP controlled continue metoprolol lisinopril on hold IBS-D continue home meds Mood disorder continue home meds DVT prophylaxis- scd Full code attending Dr. Hunter Continue hospitalization for treatment of acute chronic colitis requiring IV antibiotics Time Spent With Patient Time: Total time managing care of this patient today ____ minutes. Quality Stroke Does the patient have a stroke diagnosis?: No VTE Prior VTE?: No VTE Risk Level:: Medical - moderate - high VTE Device Contraindication: N/A - Device Ordered VTE Drug Contraindication: Treatment Not Indicated
[2022-08-17] MEDS: Nortriptyline HCl 25 MG CAPSULE 100 MG PO (20:54)
[2022-08-17 23:13] VITALS: BP 124/65; PULSE 70; RESP 16; TEMP 36.4; O2SAT 99
[2022-08-18] MEDS: vancomycin HCL 125 MG CAPSULE PO ×4 (03:05→20:39)
[2022-08-18] MEDS: 0.9 % Sodium Chloride 1,000 ML 100 ML IVCONT (05:29)
[2022-08-18 08:00] VITALS: BP 134/68; PULSE 61; RESP 18; TEMP 36.5; O2SAT 96
[2022-08-18] MEDS: Metoprolol Tartrate 25 MG TABLET PO ×2 (08:31→20:40)
[2022-08-18] MEDS: Dicyclomine HCl 10 MG CAPSULE 40 MG PO ×4 (08:31→20:39)
[2022-08-18] MEDS: ARIPiprazole 15 MG TABLET PO (08:31)
[2022-08-18] MEDS: Omeprazole 20 MG CAPSULE.DR PO (08:31)
[2022-08-18] MEDS: busPIRone HCl 5 MG TABLET 15 MG PO ×2 (08:31→20:40)
[2022-08-18 10:59] LABS: Anion Gap 9 (12-20); Blood Urea Nitrogen 4 mg/dL (9-16); Calcium 8.5 mg/dL (8.4-10.2); Carbon Dioxide 24 mmol/L (22-29); Chloride 110 mmol/L (96-108); Estimated Glomerular Filt Rate > 60; Glucose Random 88 mg/dL (60-115); Potassium 3.2 mmol/L (3.3-5.1); Sodium 140 mmol/L (135-145)
[2022-08-18] MEDS: Lactated Ringers 1,000 ML 100 ML IVCONT ×2 (11:35→23:26)
[2022-08-18] MEDS: ondansetron HCL 4 MG/2 ML VIAL IVPUSH (11:41)
[2022-08-18] MEDS: Potassium Chloride Packet 20 MEQ PACKET 40 MEQ PO (12:48)
--- NOTE | 2022-08-18 14:08 | MHC.CM.PN ---
Patient has been changed from OBS to INPT. DP home self care, she has a ride home.
--- NOTE | 2022-08-18 15:54 | P.PNIM_ITS ---
Subjective Subjective Date of Service: 08/18/22 Interval History: seen and examined this morning follow up for cdif still reporting 11/14 LLQ abdominal pain multiple episodes of non-bloody diarrhea Review of Systems Review of Systems: Yes all other systems are reviewed and are negative Constitutional Constitutional: Denies chills and Denies fever(s) ENT Ears, Nose, Mouth, and Throat: Denies dizziness Cardiovascular Cardiovascular: Denies chest pain, Denies palpitations and Denies dyspnea Respiratory Respiratory: Denies cough and Denies dyspnea Gastrointestinal Gastrointestinal: Reports abdominal pain, Reports diarrhea, Denies nausea and Denies vomiting Neurologic Neurologic: Denies dizziness Endocrine Endocrine: Denies palpitations Physical Exam Vital Signs: Vital Signs: Last Vital Signs Temp 97.7 F 08/18/22 08:00 Pulse 61 08/18/22 08:00 Resp 18 08/18/22 08:00 BP 134/68 08/18/22 08:00 Pulse Ox 96 08/18/22 08:00 O2 Del Method Room Air 08/18/22 08:00 BMI result Body Mass Index 28.3 Const: General: cooperative, comfortable, no acute distress, alert and awake Nutritional Appearance: average body habitus Orientation/consciousness: patient oriented x3 Resp: Effort & Inspection: normal respiratory effort, able to speak in complete sentences, no respiratory distress and no use of accessory muscles Auscultation: clear to auscultation bilaterally Cardio: Rate: regular rate Heart sounds: S1 normal heart sound present and S2 normal heart sound present GI: Other: LLQ tenderness, mild, no guarding, no rebound Inspection: No distended Palpation (GI): Soft to palpation Neuro: General: patient oriented x3, moves all extremities and CN's II-XI intact bilaterally Extrem: General: Yes no pedal edema Objective Data Active Medications Acetaminophen (Acetaminophen 325 Mg Tablet) 650 mg PO Q6H PRN PRN Reason: Pain, Mild (Pain Scale 1-3) Aripiprazole (Aripiprazole 15 Mg Tablet) 15 mg PO DAILY [facility] Last Admin: 08/18/22 08:31 Dose: 15 mg Documented By: SAHIL Buspirone HCl (Buspirone Hcl 5 Mg Tablet) 15 mg PO BID [facility] Last Admin: 08/18/22 08:31 Dose: 15 mg Documented By: SAHIL Dicyclomine HCl (Dicyclomine Hcl 10 Mg Capsule) 40 mg PO QID [facility] Last Admin: 08/18/22 12:47 Dose: 40 mg Documented By: SAHIL Lactated Ringer's (Lr) 1,000 mls @ 100 mls/hr IVCONT .Q10H [facility] Last Admin: 08/18/22 11:35 Dose: 100 mls/hr Documented By: SAHIL Lisinopril (Lisinopril 20 Mg Tablet) 20 mg PO DAILY [facility]; Protocol Metoprolol Tartrate (Metoprolol Tartrate 25 Mg Tablet) 25 mg PO BID [facility]; Protocol Last Admin: 08/18/22 08:31 Dose: 25 mg Documented By: SAHIL Morphine Sulfate (Morphine Sulfate 2 Mg/Ml Cartridge) 1 mg IVPUSH Q4H PRN; Protocol PRN Reason: abdominal pain Last Admin: 08/16/22 20:51 Dose: 1 mg Documented By: SHARONDA Non-Formulary Medication (Budesonide) 9 mg PO DAILY [facility] Pt Own (Nabumetone (750 Mg Tablet)) 750 mg PO BID [facility] Last Admin: 08/18/22 08:32 Dose: 750 mg Documented By: SAHIL Pt Own (Alosetron [ Lotronex] 0.5 Mg Tablet) 1 mg PO BID [facility] Last Admin: 08/18/22 08:31 Dose: 1 mg Documented By: SAHIL Nortriptyline HCl (Nortriptyline Hcl 25 Mg Capsule) 100 mg PO BEDTIME [facility] Last Admin: 08/17/22 20:54 Dose: 100 mg Documented By: VERONICA Omeprazole (Omeprazole 20 Mg Capsule.) 20 mg PO DAILY [facility] Last Admin: 08/18/22 08:31 Dose: 20 mg Documented By: SAHIL Ondansetron HCl (Ondansetron Hcl 4 Mg/2 Ml Vial) 4 mg IVPUSH Q8H PRN PRN Reason: Nausea and Vomiting Last Admin: 08/18/22 11:41 Dose: 4 mg Documented By: SAHIL Oxycodone HCl (Oxycodone Hcl Immed Release 5 Mg Tablet) 5 mg PO Q3H PRN PRN Reason: Pain, Severe (Pain Scale 7-10) Last Admin: 08/17/22 19:26 Dose: 5 mg Documented By: HO.ODRISM Pharmacy Consult (Consult Rx Perform Med Rec) 1 each MISCELLANE ONCE PRN PRN Reason: Consult order Sodium Chloride (0.9 % Sodium Chloride Flush 3 Ml Syringe) 3 ml IVFLUSH QSHIFT [facility] Last Admin: 08/18/22 08:31 Dose: Not Given Documented By: SAHIL Non-Admin Reason: IV Running Sumatriptan Succinate (Sumatriptan Succinate 100 Mg Tablet) 100 mg PO DAILY MRX1 PRN PRN Reason: migraine Vancomycin HCl (Vancomycin Hcl 125 Mg Capsule) 125 mg PO Q6H [facility] Stop: 08/26/22 08:59 Last Admin: 08/18/22 08:31 Dose: 125 mg Documented By: SAHIL Zolpidem Tartrate (Zolpidem Tartrate 5 Mg Tablet) 5 mg PO BEDTIME PRN PRN Reason: Insomnia Labs 08/17/22 09:27 08/18/22 10:31 Labs: Laboratory Results - last 24 hr 08/18/22 10:31 Anion Gap 9 L Estim Creat Clear Calc 78.0 Estimated GFR > 60 Random Glucose 88 Calcium 8.5 Assessment and Plan (1) Clostridioides difficile diarrhea: Status: Acute Plan This is a 49-year-old female with history of IBS with diarrhea, GERD, history of sigmoid diverticulitis, migraines, and history of colitis here with intractable abdominal pain with acute on chronic diarrhea and PO intolerance found to have cdif Acute on chronic colitis secondary to cdiff initially treated with levaquin/flagyl, stopped as per GI cdif PCR + toxin negative but given significant and diarrhea/ change from baseline treating as active C diff GI following>symptoms likely from cdiff continue Oral vancomycin for 10 days will attempt advancement of diet if no improvement would consider adding immodium hypokalemia due to GI losses replace check mangesium follow BMP migraines takes emgality q.4 W hypertension-BP controlled continue metoprolol lisinopril on hold IBS with constipation continue home meds Mood disorder continue home meds DVT prophylaxis- scd/early ambulation Full code attending Dr. Hunter Continue hospitalization for treatment of acute chronic colitis requiring IV antibiotics Time Spent With Patient Time: Total time managing care of this patient today ____ minutes. Quality Stroke Does the patient have a stroke diagnosis?: No VTE Prior VTE?: No VTE Risk Level:: Medical - moderate - high VTE Device Contraindication: N/A - Device Ordered VTE Drug Contraindication: Treatment Not Indicated
[2022-08-18 16:00] VITALS: BP 135/78; PULSE 67; RESP 20; TEMP 37; O2SAT 98
[2022-08-18] MEDS: Nortriptyline HCl 25 MG CAPSULE 100 MG PO (20:39)
[2022-08-18 23:31] VITALS: BP 124/75; PULSE 67; RESP 18; TEMP 36.4; O2SAT 99
[2022-08-19] MEDS: vancomycin HCL 125 MG CAPSULE PO ×4 (02:36→21:40)
[2022-08-19 05:42] LABS: Anion Gap 9 (12-20); Blood Urea Nitrogen 4 mg/dL (9-16); Calcium 8.8 mg/dL (8.4-10.2); Carbon Dioxide 24 mmol/L (22-29); Chloride 112 mmol/L (96-108); Creatinine Clr Calc Pharmacy 84.8; Estimated Glomerular Filt Rate > 60; Glucose Random 89 mg/dL (60-115); Magnesium 1.6 mg/dL (1.6-2.6); Potassium 3.4 mmol/L (3.3-5.1); Sodium 142 mmol/L (135-145)
[2022-08-19 06:54] VITALS: BP 147/75; PULSE 76; RESP 17; TEMP 36.1; O2SAT 97
--- NOTE | 2022-08-19 07:41 | HO.PM.IMPN ---
Subjective Subjective Date of Service: 08/19/22 Interval History: f/u on colitis, diarrhea still report diarrhea, Physical Exam Vital Signs: Vital Signs: Last Vital Signs Temp 97 F 08/19/22 06:54 Pulse 76 08/19/22 06:54 Resp 17 08/19/22 06:54 BP 147/75 H 08/19/22 06:54 Pulse Ox 97 08/19/22 06:54 O2 Del Method Room Air 08/19/22 06:54 BMI result Body Mass Index 28.3 Objective Data Active Medications Acetaminophen (Acetaminophen 325 Mg Tablet) 650 mg PO Q6H PRN PRN Reason: Pain, Mild (Pain Scale 1-3) Aripiprazole (Aripiprazole 15 Mg Tablet) 15 mg PO DAILY [facility] Last Admin: 08/18/22 08:31 Dose: 15 mg Documented By: SAHIL Buspirone HCl (Buspirone Hcl 5 Mg Tablet) 15 mg PO BID [facility] Last Admin: 08/18/22 20:40 Dose: 15 mg Documented By: HOMERO Dicyclomine HCl (Dicyclomine Hcl 10 Mg Capsule) 40 mg PO QID [facility] Last Admin: 08/18/22 20:39 Dose: 40 mg Documented By: HOMERO Lactated Ringer's (Lr) 1,000 mls @ 100 mls/hr IVCONT .Q10H [facility] Last Admin: 08/18/22 23:26 Dose: 100 mls/hr Documented By: HOMERO Lisinopril (Lisinopril 20 Mg Tablet) 20 mg PO DAILY [facility]; Protocol Metoprolol Tartrate (Metoprolol Tartrate 25 Mg Tablet) 25 mg PO BID [facility]; Protocol Last Admin: 08/18/22 20:40 Dose: 25 mg Documented By: HOMERO Comments: BP 122/72 H 68 Morphine Sulfate (Morphine Sulfate 2 Mg/Ml Cartridge) 1 mg IVPUSH Q4H PRN; Protocol PRN Reason: abdominal pain Last Admin: 08/16/22 20:51 Dose: 1 mg Documented By: SHARONDA Non-Formulary Medication (Budesonide) 9 mg PO DAILY [facility] Pt Own (Nabumetone (750 Mg Tablet)) 750 mg PO BID [facility] Last Admin: 08/18/22 20:41 Dose: 750 mg Documented By: HO.CASTILM Pt Own (Alosetron [ Lotronex] 0.5 Mg Tablet) 1 mg PO BID [facility] Last Admin: 08/18/22 20:41 Dose: 1 mg Documented By: HOMERO Nortriptyline HCl (Nortriptyline Hcl 25 Mg Capsule) 100 mg PO BEDTIME [facility] Last Admin: 08/18/22 20:39 Dose: 100 mg Documented By: HOMERO Omeprazole (Omeprazole 20 Mg Capsule.Dr) 20 mg PO DAILY [facility] Last Admin: 08/18/22 08:31 Dose: 20 mg Documented By: SAHIL Ondansetron HCl (Ondansetron Hcl 4 Mg/2 Ml Vial) 4 mg IVPUSH Q8H PRN PRN Reason: Nausea and Vomiting Last Admin: 08/18/22 11:41 Dose: 4 mg Documented By: SAHIL Oxycodone HCl (Oxycodone Hcl Immed Release 5 Mg Tablet) 5 mg PO Q3H PRN PRN Reason: Pain, Severe (Pain Scale 7-10) Last Admin: 08/17/22 19:26 Dose: 5 mg Documented By: VERONICA Pharmacy Consult (Consult Rx Perform Med Rec) 1 each MISCELLANE ONCE PRN PRN Reason: Consult order Sodium Chloride (0.9 % Sodium Chloride Flush 3 Ml Syringe) 3 ml IVFLUSH QSHIFT [facility] Last Admin: 08/19/22 00:41 Dose: Not Given Documented By: HOMERO Non-Admin Reason: IV Running Sumatriptan Succinate (Sumatriptan Succinate 100 Mg Tablet) 100 mg PO DAILY MRX1 PRN PRN Reason: migraine Vancomycin HCl (Vancomycin Hcl 125 Mg Capsule) 125 mg PO Q6H [facility] Stop: 08/26/22 08:59 Last Admin: 08/19/22 02:36 Dose: 125 mg Documented By: HOMERO Zolpidem Tartrate (Zolpidem Tartrate 5 Mg Tablet) 5 mg PO BEDTIME PRN PRN Reason: Insomnia Labs 08/17/22 09:27 08/19/22 04:47 Labs: Laboratory Results - last 24 hr 08/18/22 08/19/22 10:31 04:47 Anion Gap 9 L 9 L Estim Creat Clear Calc 78.0 84.8 Estimated GFR > 60 > 60 Random Glucose 88 89 Calcium 8.5 8.8 Magnesium 1.6 Assessment and Plan (1) Clostridioides difficile diarrhea: Status: Acute Plan This is a 49-year-old female with history of IBS with diarrhea, GERD, history of sigmoid diverticulitis, migraines, and history of colitis here with intractable abdominal pain with acute on chronic diarrhea and PO intolerance found to have cdif Acute on chronic colitis secondary to cdiff initially treated with levaquin/flagyl, stopped as per GI cdif PCR + toxin negative but given significant and diarrhea/ change from baseline treating as active C diff GI following>symptoms likely from cdiff continue Oral vancomycin for 10 days on regular diet imodium PRN for excessive diarrhea hypokalemia, corrected, Mag 1.6 migraines takes emgality q.4 W hypertension-BP controlled continue metoprolol lisinopril on hold IBS with constipation continue home meds Mood disorder continue home meds DVT prophylaxis- scd/early ambulation Full code attending Dr. Hunter Continue hospitalization for treatment of acute chronic colitis requiring IV antibiotics Will try do discharge home today Time Spent With Patient Time: Total time managing care of this patient today ____ minutes. Quality Stroke Does the patient have a stroke diagnosis?: No VTE Prior VTE?: No VTE Risk Level:: Medical - moderate - high VTE Device Contraindication: N/A - Device Ordered VTE Drug Contraindication: Treatment Not Indicated
[2022-08-19] MEDS: Dicyclomine HCl 10 MG CAPSULE 40 MG PO ×4 (08:02→21:39)
[2022-08-19] MEDS: busPIRone HCl 5 MG TABLET 15 MG PO ×2 (08:03→21:39)
[2022-08-19] MEDS: ARIPiprazole 15 MG TABLET PO (08:03)
[2022-08-19] MEDS: Metoprolol Tartrate 25 MG TABLET PO ×2 (08:03→21:40)
[2022-08-19] MEDS: Omeprazole 20 MG CAPSULE.DR PO (08:13)
[2022-08-19] MEDS: Lactated Ringers 1,000 ML 100 ML IVCONT (10:09)
[2022-08-19] MEDS: Loperamide HCl 2 MG CAPSULE PO ×2 (11:04→17:21)
[2022-08-19] MEDS: Acetaminophen 325 MG TABLET 650 MG PO (11:46)
[2022-08-19 15:49] VITALS: BP 137/67; PULSE 67; RESP 14; TEMP 36.1; O2SAT 95
[2022-08-19] MEDS: Nortriptyline HCl 25 MG CAPSULE 100 MG PO (21:40)
[2022-08-19 21:47] VITALS: BP 126/88; PULSE 85
[2022-08-19 23:27] VITALS: BP 123/71; PULSE 69; RESP 16; TEMP 36; O2SAT 96
[2022-08-19] MEDS: SUMAtriptan succinate 100 MG TABLET PO (23:38)
[2022-08-20] MEDS: Lactated Ringers 1,000 ML 100 ML IVCONT (01:06)
[2022-08-20] MEDS: vancomycin HCL 125 MG CAPSULE PO ×3 (03:08→15:44)
[2022-08-20 07:26] VITALS: BP 164/89; PULSE 64; RESP 18; TEMP 36.2; O2SAT 96
[2022-08-20] MEDS: busPIRone HCl 5 MG TABLET 15 MG PO (07:42)
[2022-08-20] MEDS: Dicyclomine HCl 10 MG CAPSULE 40 MG PO ×2 (07:42→15:44)
[2022-08-20] MEDS: Metoprolol Tartrate 25 MG TABLET PO (07:43)
[2022-08-20] MEDS: Omeprazole 20 MG CAPSULE.DR PO (07:43)
[2022-08-20] MEDS: ARIPiprazole 15 MG TABLET PO (09:57)
[2022-08-20 14:55] VITALS: BP 144/90; PULSE 69; RESP 18; TEMP 36.2; O2SAT 95
--- NOTE | 2022-08-20 15:48 | PM.DS ---
DS: Providers Provider Date of Service: 08/20/22 Date of admission: 08/18/22 08:08 Date of discharge: 08/20/22 Primary care physician: Claribel Grissom MD Consults: 08/14/22 19:25 Consult to Gastroenterology Routine Consulting Provider: Gosia Sheehan Reason for consultation: worsening diarrhea (chronic), PO intolerance Attending physician on discharge: Tadeo Perez Discharging clinician: Miriam Gutierrez DS: Diagnosis Discharge Diagnosis (1) Clostridioides difficile diarrhea: Status: Acute DS: Summary Hospital Course Hospital Course: From H&P on the day of admission 49-year-old female with history of IBS with diarrhea, GERD, history of sigmoid diverticulitis, migraines, and history of colitis presented to the ED earlier today from general surgery office for evaluation of left lower quadrant pain worsening over the last 2 weeks.? She has also been having worsening diarrhea, up to 13 episodes of watery diarrhea daily with associated nausea and vomiting.? She has not been able to tolerate much p.o. as she has been vomiting.? States there has been some bright red blood per rectum with the diarrhea.? She has had chronic issues with abdominal pain and diarrhea following with both Gastroenterology and General surgery that has been ongoing for several years.? She did have colonoscopy in 05/2022 which showed diverticulosis, tubular adenoma, and hemorrhoids.? Was recently seen by Gastroenterology 2 days ago was prescribed budesonide but states she has been unable to secure the medication due to insurance reasons.? She has been trying to follow a low-fat diet but has not tried other dietary modifications.? She denies any fevers, chills, melena, urinary issues, shortness of breath, chest pain.? No bad foods recently or recent travel.? She has been treated with oral antibiotics for her symptoms, most recently in March.? She was admitted to general surgery from 01/11- 01/24 due to mild diverticulitis treated with IV abx but also due to intractable pain and was discharged on PO levaquin and flagyl.? On arrival, vital signs stable.? There is no leukocytosis or anemia.? Renal function normal, electrolyte levels normal.? GI panel was collected on 07/20 which was negative.? CT abdomen/pelvis shows colonic diverticulosis mostly in the sigmoid colon as well as more diffuse subtle colonic wall thickening seen in the descending and proximal sigmoid colon consistent with nonspecific colitis, given duration of symptoms, infectious or inflammatory cause is favored.? In the ED, given 4 mg loperamide, IV morphine, 1 L IV NS, and ondansetron. Acute on chronic colitis secondary to cdiff initially treated with levaquin/flagyl, stopped as per GI. cdif PCR + toxin negative but given significant and diarrhea/ change from baseline treating as active C diff. GI following>ongoing diarrhea/ mild abdominal pain symptoms likely from cdiff. continue Oral vancomycin for total of 10 days. diet advanced and patient tolerating regular diet, still with some left side pain and diarrhea. can use prn immodium for diarrhea. stay well hydrated and recommend outpatient follow up with GI> Repeat CT with no worsening of colitis. Time Spent with Patient Time attestation: Total time managing care of this patient today ____ minutes. Discharge coordination time: Greater than 30 minutes Quality: Safe Use of Opioids Does Pt have an Active Cancer Diagnosis on the Problem List?: No Quality: Stroke Does the patient have a stroke diagnosis?: No Physical Exam Vital Signs: Vital Signs: Last Vital Signs Temp 97.2 F 08/20/22 14:55 Pulse 69 08/20/22 14:55 Resp 18 08/20/22 14:55 BP 144/90 H 08/20/22 14:55 Pulse Ox 95 08/20/22 14:55 O2 Del Method Room Air 08/20/22 14:55 BMI result Body Mass Index 28.3 Const: General: cooperative, comfortable, no acute distress, alert and awake Nutritional Appearance: average body habitus Orientation/consciousness: patient oriented x3 Resp: Effort & Inspection: normal respiratory effort, able to speak in complete sentences, no respiratory distress and no use of accessory muscles Auscultation: clear to auscultation bilaterally Cardio: Rate: regular rate Heart sounds: S1 normal heart sound present and S2 normal heart sound present GI: Inspection: No distended Palpation (GI): Soft to palpation Neuro: General: patient oriented x3, moves all extremities and CN's II-XI intact bilaterally Extrem: General: Yes no pedal edema Discharge Plan Discharge Anticipated Discharge Date/Time: 08/20/22 16:03 Patient Disposition: Home, Self-Care Discharge Diagnosis: cdif colitis Referrals: Gosia Sheehan MD [Physician] - 1 Week Claribel Grissom MD [Primary Care Provider] - 1 Week Discharge Medications: New loperamide 2 mg Capsule 2 mg PO Q6H PRN (Reason: Diarrhea) Qty: 20 0RF vancomycin 125 mg Capsule 125 mg PO Q6H 6 Days Qty: 24 0RF Continued nabumetone 750 mg tablet 750 mg PO BID Qty: 60 3RF lisinopril 20 mg tablet 20 mg PO DAILY zolpidem 12.5 mg tablet,ext release multiphase 12.5 mg PO BEDTIME PRN (Reason: Insomnia) sumatriptan succinate 100 mg tablet 100 mg PO DAILY MRX1 nortriptyline 50 mg capsule 100 mg PO QPM Emgality Pen 120 mg/mL pen injector 120 mg subcut Q4W metoprolol tartrate 25 mg tablet 25 mg PO BID aripiprazole 15 mg tablet 15 mg PO QAM ondansetron 4 mg tablet,disintegrating 4 mg PO TID PRN (Reason: nausea and vomiting) 5 Days Qty: 30 3RF pantoprazole 40 mg tablet,delayed release (DR/EC) 40 mg PO DAILY Qty: 30 6RF dicyclomine 20 mg tablet 40 mg PO QID 30 Days Qty: 240 3RF buspirone 15 mg tablet 15 mg PO BID alosetron [Lotronex] 0.5 mg tablet 1 mg PO BID Qty: 60 6RF budesonide 3 mg capsule,delayed,extend.release 9 mg PO DAILY Qty: 14 0RF Discharge Orders: Discharge Order (Routine); Ordered 08/20/22 Ordered By: Miriam Gutierrez Activity on Discharge: As tolerated Stand Alone Forms: Patient Portal Discharge page Care Plan Goals: see below Health Concerns: c dif colitis Plan of Treatment: finish taking po vancomycin as prescribed can use immodium for exessive diarrhea call to schedule follow up appointment with GI clinic recommend to stay hydrated with adequate oral intake recommend good hand hygiene Assessment: see discharge summary Patient Instructions: C. Diff (Clostridioides Difficile) Infection (GEN)
--- NOTE | 2022-08-20 16:12 | MHC.CM.PN ---
order for home, self care. CM acknowledge.
[2022-08-21 16:13] LABS: CRP High Sensitivity 1.4 mg/L
== END 2022-08-20 17:48 | disposition home or self-care (01) | DRG 248 ==
LOC: HO.ED 19:12 → HO.EDOVER 21:14 → HO.S3 21:52
PROVIDERS: Nurse Practitioner Acute Care; Physician Assistant; Admitting Provider Physician Assistant; Emergency Provider Internal Medicine; PCP Internal Medicine; Visit Provider Physician Assistant Medical
DX: A04.72 Enterocolitis due to Clostridium difficile, not specified as recurrent (principal); E87.6 Hypokalemia; G43.909 Migraine, unspecified, not intractable, without status migrainosus; K58.1 Irritable bowel syndrome with constipation; F39 Unspecified mood [affective] disorder; Z79.899 Other long term (current) drug therapy
CPT/HCPCS: 36415; 74176; 74177; 80048; 80053; 81003; 83690; 83735; 85025; 85027; 86141; 87324; 87493; 87507; 99285; J1956; J2270; J2405; Q9967

== ENCOUNTER → 2022-08-14 19:20 | Outpatient (BNV) | payer MEDICAID, SELFPAY | PROVIDERS: Admitting Provider Physician Assistant; Emergency Provider Internal Medicine; PCP Internal Medicine; Visit Provider Nurse Practitioner Acute Care | DX: K52.9 Noninfective gastroenteritis and colitis, unspecified (principal) | CPT/HCPCS: 99222; 99232; 99239 ==

== ENCOUNTER → 2022-08-14 19:20 | Outpatient (BNV) | payer MEDICAID, SELFPAY | PROVIDERS: Admitting Provider Physician Assistant; Emergency Provider Internal Medicine; PCP Internal Medicine; Visit Provider Internal Medicine Gastroenterology | DX: K52.9 Noninfective gastroenteritis and colitis, unspecified (principal); K57.92 Diverticulitis of intestine, part unspecified, without perforation or abscess without bleeding; R10.9 Unspecified abdominal pain | CPT/HCPCS: 99222 ==

== ENCOUNTER 2022-08-31 11:43 | Outpatient (REF) | payer MEDICAID, SELFPAY ==
--- NOTE | ~2022-08-31 | US_ITS ---
EXAMINATION: US RETROPERITONEAL LIMITED (RENAL ONLY) CLINICAL INFORMATION: Cyst of kidney, acquired. COMPARISON: CT abdomen and pelvis 08/20/2022. X-ray abdomen 09/01/2020. Ultrasound abdomen 04/15/2013. TECHNIQUE: Real-time imaging of the kidneys. Limited visualization due to bowel gas. FINDINGS: RIGHT KIDNEY: 9.7 x 5.7 x 4.5 cm (SAG x AP x TRV). No hydronephrosis. No renal calculi. Limited visualization. Midpole 0.7 x 0.5 x 0.6 cm cyst is difficult to fully characterize due to small size, but is likely simple. LEFT KIDNEY: 9.0 x 5.6 x 4.8 cm (SAG x AP x TRV). 1.1 x 1.2 x 1.0 cm mid pole cyst with benign features. There is no indication for follow-up imaging. No hydronephrosis. No renal calculi. Limited visualization. US/US renal BI IMPRESSION: No hydronephrosis. No renal calculi. Left renal 1.2 cm mid pole cyst with benign features. There is no indication for follow-up imaging. Right renal 0.7 cm mid pole cyst is difficult to fully characterize due to small size, but is likely simple.
== END 2022-08-31 11:44 | disposition home or self-care (01) ==
LOC: HO.US 11:43
PROVIDERS: Visit Provider Nurse Practitioner Family
DX: N28.1 Cyst of kidney, acquired (principal)
CPT/HCPCS: 76775

== ENCOUNTER 2022-09-18 13:23 | Outpatient (REF) | payer MEDICAID, SELFPAY ==
[2022-09-18 15:22] LABS: MANUAL DIFF FLAG NO
[2022-09-18 16:18] LABS: Basophils Absolute Auto 0.1 X10*3/uL (0.0-0.2); Basophils Percent Auto 0.9 % (0-2); Eosinophils Absolute Auto 0.2 X10*3/uL (0.0-0.4); Eosinophils Percent Auto 2.4 % (0-4); Hematocrit 40.1 % (37.0-47.0); Hemoglobin 12.3 g/dl (12.0-16.0); Imm Gran Abs Auto 0.01 X10*3/uL (0.00-0.03); Imm Gran Pct Auto 0.1 % (0.0-0.4); Lymphocytes Absolute Auto 3.5 X10*3/uL (1.2-4.9); Lymphocytes Percent Auto 51.7 % (20-40); Mean Corpuscular HGB Conc 30.7 g/dl (31.0-35.0); Mean Corpuscular Hemoglobin 26.5 pg (27.0-33.0); Mean Corpuscular Volume 86.2 fL (80.0-98.0); Mean Platelet Volume 9.8 fL (9.4-12.3); Monocytes Absolute Auto 0.6 X10*3/uL (0.1-1.2); Monocytes Percent Auto 8.3 % (2-11); Neutrophils Absolute Auto 2.5 x10*3/uL (2.0-8.3); Neutrophils Percent Auto 36.6 % (45-73); Platelet Count 339 X10*3/uL (160-400); Red Blood Count 4.65 X10*6/uL (4.20-5.50); Red Cell Distribution Width 13.9 % (11.0-16.0); White Blood Count 6.7 X10*3/uL (4.8-10.8)
[2022-09-19 05:03] LABS: HIV AB/AG Nonreactive (Nonreactive); HIV Num 1 0.05 S/CO (0.00-0.99)
== END 2022-09-18 13:24 | disposition home or self-care (01) ==
LOC: HO.LAB 13:23
PROVIDERS: PCP Internal Medicine; Visit Provider Internal Medicine
DX: Z11.4 Encounter for screening for human immunodeficiency virus [HIV] (principal); K52.9 Noninfective gastroenteritis and colitis, unspecified; A04.72 Enterocolitis due to Clostridium difficile, not specified as recurrent
CPT/HCPCS: 36415; 85025; 87389; 99202

== ENCOUNTER 2022-09-18 13:23 | Outpatient (AMB) | payer MEDICAID, SELFPAY ==
--- NOTE | 2022-09-18 14:10 | MHC.OFFVIS ---
Intake Vital Signs 09/18/22 14:22 Height 5 ft 4 in Weight 172 lb BMI 29.5 BP 104/74 Blood Pressure Location Lt brachial Position Sitting Pulse 75 Pulse Source Pulse Oximeter Pulse Oximetry (%) 98 Intake Visit Reasons: Ref.[facility],C-difficile colitis Oil Burner Repairer Required: Yes Oil Burner Repairer Name: Thi Beck CMA Allergies Penicillins [PENICILLINS] Allergy (Intermediate, Verified 09/20/22 10:10) HIVES/SWELLING bupropion [From Wellbutrin] Allergy (Verified 09/20/22 10:10) hives, swelling HPI Ref.[facility],C-difficile colitis HPI Details She is a referral from [facility] for Cdiff. She had Cdiff diagnosed after LLQ pain for three days and took Vancomycin 125 mg po qid for 10 days She stopped and came back to care. Patient received a script for Vancomycin taper. She has no fever or chills. She is starting Vancomycin taper and had some formed stools. [facility] Medical History Abdominal pain Acute diverticulitis Chronic idiopathic constipation Constipation Diarrhea Diverticulitis GERD (gastroesophageal reflux disease) Irritable bowel syndrome with diarrhea Left lower quadrant pain Sigmoid diverticulitis Tubular adenoma of colon Surgical History History of esophagogastroduodenoscopy (EGD) History of intestinal surgery History of partial hysterectomy (~09/2006) Hx of colonoscopy Hx of hemorrhoidectomy Family History Father Cancer HTN (hypertension) Mother HTN (hypertension) Hyperthyroidism Migraine headache Maternal Grandmother History of breast cancer Paternal Grandmother History of breast cancer Family/Other Colon cancer Paternal Aunt Ovarian cancer Social History Household Members: None Housing: Apartment Do you presently have visiting nurse or other home services: No Alcohol intake: never Patient Tobacco Use Status: Never used Tobacco Advance Directives: No service: No Current occupational status: disabled Female Reproductive History Menstrual Age of Menarche: 7 Physical Exam Vital Signs: Last Vital Signs Pulse 75 09/18/22 14:22 BP 104/74 09/18/22 14:22 Pulse Ox 98 09/18/22 14:22 BMI result Body Mass Index 29.5 Const General: cooperative Orientation/consciousness: patient oriented x3 HEENT Head: Yes normal to inspection Mouth: Normal oral and palatal mucosa present Eyes General: appearance normal, both eyes and all related structures Pupils: Equal, round and reactive pupils present Resp Effort & Inspection: normal respiratory effort Cardio Rate: regular rate Rhythm: regular rhythm GI Palpation (GI): Soft to palpation and nontender General: Yes no CVA tenderness Back/Spine/Pelvis Back: no CVA tenderness Skin General skin exam: no rashes or lesions noted Neuro General: patient oriented x3 Cranial nerves: Yes CN's II-XII intact bilaterally and Yes Equal, round and reactive pupils present Extrem General: Yes normal to inspection Psych Appearance: grossly normal Assessment & Plan Assessment & Plan (1) Clostridioides difficile diarrhea: Comment: Check for signs of toxicity which would come from elevated CBC Code(s): A04.72 - Enterocolitis due to Clostridium difficile, not specified as recurrent Plan Check CBC and HIV Fidaxomicin if covered and if diarrhea after 10 d Fidaxomicin then vancomycin taper again and stay at Vancomycin 125 mg po every ,,Sunday after. Orders: Orders Complete Blood Count Auto Diff 09/18/22 K52.9 - Noninfective gastroenteritis and colitis, unspecified HIV Ab/Ag 09/18/22 K52.9 - Noninfective gastroenteritis and colitis, unspecified Medications: New fidaxomicin 200 mg PO BID 10 days 20 tabs 0RF fidaxomicin 200 mg PO BID 10 days 20 tabs 0RF Coding Level of Care Code New Pt Level 3 (97746) Diagnoses Clostridioides difficile diarrhea A04.72
[2022-09-18 14:22] VITALS: BP 104/74; PULSE 75; O2SAT 98; BMI 29.5
== END 2022-09-18 14:30 | disposition home or self-care (01) ==
LOC: HO.HID 13:23
PROVIDERS: PCP Internal Medicine; Visit Provider Internal Medicine
DX: A04.72 Enterocolitis due to Clostridium difficile, not specified as recurrent (principal)
CPT/HCPCS: 99203

== ENCOUNTER 2022-09-20 09:28 | Outpatient (AMB) | payer MEDICAID, SELFPAY ==
--- NOTE | 2022-09-20 09:38 | A.OFFVIS_ITS ---
Intake Intake Visit Reasons: 6 m follow up/US(set) Intake Note: Patient presents today for follow up kidney cyst/ultrasound (imaging 08/31) Urology Medication: none Blood Thinner: none Assistant Account Executive Required: No Accompanied by: Self / Same As Patient Allergies Penicillins [PENICILLINS] Allergy (Intermediate, Verified 09/20/22 10:10) HIVES/SWELLING bupropion [From Wellbutrin] Allergy (Verified 09/20/22 10:10) hives, swelling Medication List - Last Reconciled 09/20/22 by SAGE Hall- alosetron (Lotronex) 1 mg (2 x 0.5 mg) PO BID aripiprazole 15 mg PO QAM budesonide ER 9 mg (3 x 3 mg) PO DAILY buspirone 15 mg PO BID cholecalciferol (vitamin D3) 25 mcg PO QAM dicyclomine 40 mg (2 x 20 mg) PO QID 30 days fidaxomicin 200 mg PO BID 10 days galcanezumab-gnlm (Emgality Pen) 120 mg subcut Q4W lisinopril 20 mg PO DAILY loperamide 2 mg PO Q6H PRN metoprolol tartrate 25 mg PO BID nabumetone 750 mg PO BID nortriptyline 100 mg PO QPM ondansetron 4 mg PO TID PRN 5 days pantoprazole 40 mg PO DAILY sumatriptan succinate 100 mg PO DAILY MRX1 zolpidem ER 12.5 mg PO BEDTIME PRN HPI HPI Comments History of Present Illness Details Kacy is a pleasant Upper Sorbian-speaking 57-year-old female patient of Dr. Grissom. She has a past medical history of chronic idiopathic constipation, diarrhea, diverticulitis, GERD, irritable bowel syndrome, and renal cysts. She presents to the office today for follow-up of her renal cyst. Recent renal imaging results reviewed with the patient today. Right kidney with no calculi or hydronephrosis noted. There is a mid pole 0.7 x 0.5 x 0.6 cm cyst that is difficult to fully characterize due to small size but is likely simple. Left kidney with no calculi or hydronephrosis noted. 1.1 x 1.2 x 1.0 cm mid pole cyst with benign features. When asked patient denies any issues with her urination. She denies urinary urgency, urinary frequency, incontinence, nocturia, hematuria, dysuria, foul smelling urine, changes to urinary stream, flank pain, fever, and or chills. She is happy with her current voiding parameters. She does however report ongoing issues with diarrhea. She reports to be following up here at [facility] with our gastroenterologists services. In office urinalysis results reviewed with the patient today. She otherwise offers no issues or concerns at this time. [facility] Medical History (Reviewed 09/20/22 @ 10:15 by Maryanne Wells [facility]) Abdominal pain Acute diverticulitis Chronic idiopathic constipation Constipation Diarrhea Diverticulitis GERD (gastroesophageal reflux disease) Irritable bowel syndrome with diarrhea Left lower quadrant pain Sigmoid diverticulitis Tubular adenoma of colon Surgical History History of esophagogastroduodenoscopy (EGD) History of intestinal surgery History of partial hysterectomy (~09/2006) Hx of colonoscopy Hx of hemorrhoidectomy Family History Father Cancer HTN (hypertension) Mother HTN (hypertension) Hyperthyroidism Migraine headache Maternal Grandmother History of breast cancer Paternal Grandmother History of breast cancer Family/Other Colon cancer Paternal Aunt Ovarian cancer Social History Household Members: None Housing: Apartment Do you presently have visiting nurse or other home services: No Alcohol intake: never Patient Tobacco Use Status: Never used Tobacco service: No Current occupational status: disabled Female Reproductive History Menstrual Age of Menarche: 7 Review of Systems Eyes Reports no additional complaints ENT Reports no additional complaints Card Reports no additional complaints Resp Reports no additional complaints GI Reports as per HPI Reports as per HPI Musc Reports no additional complaints Neuro Reports no additional complaints Psych Reports no additional complaints Endo Reports no additional complaints Erik/Lymph Reports no additional complaints Aller/Immun Reports no additional complaints Physical Exam Const General: cooperative, healthy appearing, comfortable, no acute distress, well d eveloped, alert and awake Orientation/consciousness: patient oriented x3 Limitations: no limitations HEENT Head: Yes normal to inspection, Yes normocephalic and Yes atraumatic Ears: hearing grossly normal bilaterally Eyes General: appearance normal, both eyes and all related structures Neck Neck: Yes normal visual inspection and Yes trachea midline Chest Chest palpation & inspection: normal inspection of the chest Resp Effort & Inspection: normal respiratory effort and able to speak in complete sentences Cardio Rate: regular rate GI Inspection: Yes normal to inspection General: Yes no CVA tenderness Back/Spine/Pelvis Back: no CVA tenderness Skin General skin exam: no rashes or lesions noted Neuro General: patient oriented x3 Extrem General: Yes normal to inspection Psych Appearance: grossly normal and well kempt Mental Status: mental status grossly normal Speech and movement: Normal speech and movement present and Clear speech present Affect: normal affect Attitude: cooperative Thought process: Normal thought process present Thought content: Normal thought content present Insight: Fair insight present (Psych) Judgement: Fair judgement present (Psych) Results AMB Urinalysis, Automated UA Leukoctes 0 Jose/uL Last Edit by Vator on 09/20/22 10:03 UA Nitrite Negative Last Edit by Vator on 09/20/22 10:03 UA Urobilinogen 0.2 mg/dL Last Edit by Vator on 09/20/22 10:03 UA Protein 15 mg/dL Last Edit by Vator on 09/20/22 10:03 UA pH 5.5 Last Edit by Vator on 09/20/22 10:03 UA Blood 10 Wally/uL Last Edit by Vator on 09/20/22 10:03 UA Specific [place] 1.030 Last Edit by Vator on 09/20/22 10:03 UA Ketone Negative Last Edit by Vator on 09/20/22 10:03 UA Bilirubin 0 mg/dL Last Edit by Vator on 09/20/22 10:03 UA Glucose 0 mg/dL Last Edit by Vator on 09/20/22 10:03 Results Reviewed Results Reviewed: Date of Service: 08/31/22 EXAMINATION: US RETROPERITONEAL LIMITED (RENAL ONLY) FINDINGS: RIGHT KIDNEY: 9.7 x 5.7 x 4.5 cm (SAG x AP x TRV). No hydronephrosis. No renal calculi. Limited visualization. Midpole 0.7 x 0.5 x 0.6 cm cyst is difficult to fully characterize due to small size, but is likely simple. LEFT KIDNEY: 9.0 x 5.6 x 4.8 cm (SAG x AP x TRV). 1.1 x 1.2 x 1.0 cm mid pole cyst with benign features. There is no indication for follow-up imaging. No hydronephrosis. No renal calculi. Limited visualization. US/US renal BI IMPRESSION: ? No hydronephrosis. No renal calculi. ? Left renal 1.2 cm mid pole cyst with benign features. There is no indication for follow-up imaging. ? Right renal 0.7 cm mid pole cyst is difficult to fully characterize due to small size, but is likely simple. Assessment & Plan Assessment & Plan (1) Renal cyst: Code(s): N28.1 - Cyst of kidney, acquired Plan In office urinalysis results reviewed with the patient today; as noted above. Recent renal imaging results reviewed with the patient today; as noted above. Will continue with surveillance imaging. Patient otherwise denies any urinary issues or concerns at this time. Patient reports be happy with current voiding parameters. Discussed, educated, instructed on the importance of drinking plenty of water daily. Renal ultrasound in 1 year. Follow-up in 1 year with imaging to be completed prior; or sooner with any issues, concerns, or questions. Orders: Orders US renal BI 364 Days N20.0 - Calculus of kidney, N28.1 - Cyst of kidney, acquired AMB Urinalysis Automated Today Z13.9 - Encounter for screening, unspecified Patient Instructions: The patient had an opportunity to ask questions regarding the treatment plan. All questions were answered. Physical exam, labs, and imaging were discussed and reviewed in detail. As well as risks, benefits, and discussion of treatment choices. No major barriers to understanding were identified. The patient expressed understanding and agreement with the above treatment plan. The patient was made aware they should contact our office by phone for worsening of their current condition, the appearance of new symptoms, or with any questions or concerns. Compliance is encouraged with any medications and follow up testing that is ordered. It is a privilege to be allowed the opportunity to participate in? your urological care.? Again, if you have any questions or concerns If you have any questions or concerns please do not hesitate to contact me. The office is [phone]. This note is constructed using voice recognition software. While every effort has been made to ensure accuracy sales mgr errors may have been included. Yours sincerely, SAGE Hall-DULCE Coding Level of Care Code Est Pt Level 3 (19238) Diagnoses Renal cyst N28.1
== END 2022-09-20 10:04 | disposition home or self-care (01) ==
PROVIDERS: PCP Internal Medicine; Visit Provider Nurse Practitioner Family
DX: N28.1 Cyst of kidney, acquired (principal); Z13.9 Encounter for screening, unspecified
CPT/HCPCS: 99213

== ENCOUNTER → 2022-09-20 09:28 | Outpatient (BNVA) | payer MEDICAID, SELFPAY | PROVIDERS: PCP Internal Medicine; Visit Provider Nurse Practitioner Family | DX: N28.1 Cyst of kidney, acquired (principal) | CPT/HCPCS: 81003; 99212; 99213 ==

== ENCOUNTER 2022-09-21 10:08 | Emergency (ER) | payer MEDICAID, SELFPAY ==
--- NOTE | ~2022-09-21 | CT_ITS ---
EXAMINATION: CT ABDOMEN AND PELVIS WITH CONTRAST CLINICAL INFORMATION: Left lower quadrant abdominal pain x1 week COMPARISON: Ultrasound abdomen 08/31/2022. CT abdomen pelvis 08/20/2022. TECHNIQUE: Multidetector volumetric images were obtained from the superior aspect of the liver through the pubic symphysis following administration 85 mL of Omnipaque 350 intravenous contrast. Sagittal and coronal reformatted images were obtained on the technologist's workstation. Oral contrast: No This CT examination was performed using dose optimization techniques as appropriate, variously including the following: *Automated exposure control *Adjustment of mA and/or kV according to patient size (this includes techniques or standardized protocols for targeted exams where dose is matched to indication/reason for exam; i.e. extremities or head) *Use of iterative reconstruction technique DLP: 574 mGy-cm FINDINGS: LUNG BASES: The visualized lung bases are unremarkable. LIVER, GALLBLADDER, AND BILIARY TREE: The liver is normal in size, shape, and attenuation. No focal hepatic lesion or biliary ductal dilatation is present. The gallbladder is unremarkable with no evidence of radiopaque gallstones, gallbladder wall thickening, or obvious pericholecystic inflammatory changes. PANCREAS: Unremarkable. SPLEEN: Unremarkable. ADRENAL GLANDS: Unremarkable. KIDNEYS AND URETERS: The kidneys are normal in size, shape, and attenuation. No hydronephrosis, hydroureter, or calculi seen. No perinephric stranding. Is 1.3 x 1.2 cm simple cyst in midpole left kidney measuring 7 Hounsfield units. There is a 6 or lytic partially exophytic lesion in the midpole right kidney is not fully characterized. These are visualized on the previous ultrasound exam. BLADDER: Unremarkable. GASTROINTESTINAL TRACT is mild mural thickening involving the entire descending colon and left transverse colon without pericolic fat stranding most suggestive of colitis. Rest of the transverse and ascending colon is normal. The small bowel loops are normal caliber. Appendix is normal caliber. ABDOMINAL WALL: No significant hernia is appreciated. LYMPH NODES: Normal. VASCULAR: Unremarkable. PELVIC VISCERA: Unremarkable. OSSEOUS STRUCTURES: No aggressive lytic or sclerotic process seen. CT/CT abdomen pelvis w IV con IMPRESSION: Diffuse descending and proximal sigmoid colon annual thickening suggestive of colitis from inflammatory or infectious etiology. No proximal bowel obstruction. Simple left renal cyst. No follow-up needed. Small exophytic cyst right kidney is too small to characterize correctly. Fleischner guidelines were followed.
[2022-09-21 10:55] VITALS: BP 125/74; PULSE 93; RESP 17; TEMP 36.3; O2SAT 98; BMI 28.5
[2022-09-21 12:04] LABS: Appearance Urine Clear; Color Urine Dark Yellow; Glucose Urine UA Negative (Negative); Leukocyte Esterase Urine Negative (Negative); Nitrite Urine Negative (Negative); PH 5.5 (5.0-9.0); Specific Gravity - Urine >= 1.030 (1.005-1.025); UMIC TRIGGER UACC YES; Urine Blood Negative (Negative); Urine Ketones Trace mg/dL (Negative); Urine Protein 30 (1+) mg/dL (Neg-Trace)
[2022-09-21 12:11] LABS: Bacteria Urine Trace (None Seen); WBC Urine 0-5 /HPF (0-5)
[2022-09-21 12:13] LABS: MANUAL DIFF FLAG NO
[2022-09-21 12:14] LABS: Basophils Percent Auto 0.8 % (0-2); Eosinophils Absolute Auto 0.1 X10*3/uL (0.0-0.4); Eosinophils Percent Auto 1.8 % (0-4); Hemoglobin 12.6 g/dl (12.0-16.0); Imm Gran Abs Auto 0.01 X10*3/uL (0.00-0.03); Imm Gran Pct Auto 0.2 % (0.0-0.4); Lymphocytes Absolute Auto 2.5 X10*3/uL (1.2-4.9); Mean Corpuscular HGB Conc 31.5 g/dl (31.0-35.0); Mean Corpuscular Hemoglobin 26.6 pg (27.0-33.0); Mean Corpuscular Volume 84.6 fL (80.0-98.0); Mean Platelet Volume 9.1 fL (9.4-12.3); Monocytes Absolute Auto 0.4 X10*3/uL (0.1-1.2); Monocytes Percent Auto 7.7 % (2-11); Neutrophils Absolute Auto 1.9 x10*3/uL (2.0-8.3); Neutrophils Percent Auto 38.5 % (45-73); Platelet Count 290 X10*3/uL (160-400); Red Blood Count 4.73 X10*6/uL (4.20-5.50); Red Cell Distribution Width 13.6 % (11.0-16.0); White Blood Count 4.9 X10*3/uL (4.8-10.8)
[2022-09-21 12:34] VITALS: BP 123/72; PULSE 74; RESP 14; O2SAT 99
[2022-09-21 12:53] LABS: Alanine Aminotransferase 22 U/L (0-31); Albumin Level 4.1 g/dL (3.5-5.0); Alkaline Phosphatase 63 U/L (39-117); Anion Gap 11 (12-20); Aspartate Amino Transferase 19 U/L (5-31); Bilirubin Direct 0.1 mg/dL (0.0-0.5); Bilirubin Total 0.3 mg/dL (0.0-1.0); Blood Urea Nitrogen 12 mg/dL (9-16); Calcium 9.8 mg/dL (8.4-10.2); Carbon Dioxide 26 mmol/L (22-29); Chloride 107 mmol/L (96-108); Creatinine Clr Calc Pharmacy 75.1; Estimated Glomerular Filt Rate > 60; Glucose Random 93 mg/dL (60-115); Lipase 19 U/L (8-78); Potassium 4.8 mmol/L (3.3-5.1); Sodium 139 mmol/L (135-145); Total Protein 7.2 g/dL (6.5-8.0)
--- NOTE | 2022-09-21 13:13 | ED_ITS ---
HPI - Abdominal Pain General Chief Complaint: Abdominal Pain Stated Complaint: Abd pain/ Vomiting Time Seen by Provider: 09/21/22 12:42 Source: patient Mode of arrival: ambulatory Limitations: no limitations History of Present Illness HPI narrative: 57-year-old female with history of colitis and diverticulitis presents with left lower quadrant abdominal pain. The pain is a 10/10. It is sharp stabbing pain. The pain does not radiate. Is worse when she is going to the bathroom. She does report blood in the stool. She has had no fever but has had chills. For her but that has not provided her with any significant relief. Patient denies any urinary complaints. She also complains of nausea vomiting and loose stool. Related Data Home Medications Medication Instructions Recorded Confirmed galcanezumab-gnlm 120 mg/mL 120 mg subcut Q4W 11/25/21 08/14/22 subcutaneous pen injector (Emgality Pen) lisinopril 20 mg tablet 20 mg PO DAILY 11/25/21 08/14/22 metoprolol tartrate 25 mg tablet 25 mg PO BID 11/25/21 08/14/22 nortriptyline 50 mg capsule 100 mg PO QPM 11/25/21 08/14/22 sumatriptan succinate 100 mg tablet 100 mg PO DAILY MRX1 migraine 11/25/21 08/14/22 zolpidem 12.5 mg tablet,extended 12.5 mg PO BEDTIME PRN Insomnia 11/25/21 08/14/22 release,multiphase aripiprazole 15 mg tablet 15 mg PO QAM 03/31/22 08/14/22 buspirone 15 mg tablet 15 mg PO BID 07/14/22 08/14/22 cholecalciferol (vitamin D3) 25 25 mcg PO QAM 09/20/22 mcg (1,000 unit) tablet Previous Rx's Medication Instructions Recorded ondansetron 4 mg disintegrating 4 mg PO TID PRN nausea and 02/28/22 tablet vomiting 5 days #30 tabs dicyclomine 20 mg tablet 40 mg PO QID 30 days #240 tabs 05/24/22 alosetron 0.5 mg tablet (Lotronex) 1 mg PO BID #60 tabs 07/14/22 nabumetone 750 mg tablet 750 mg PO BID #60 tabs 08/10/22 budesonide 3 mg 9 mg PO DAILY #14 ea 08/11/22 capsule,delayed,extended release loperamide 2 mg capsule 2 mg PO Q6H PRN Diarrhea #20 caps 08/20/22 pantoprazole 40 mg tablet,delayed 40 mg PO DAILY #90 tabs 08/22/22 release fidaxomicin 200 mg tablet 200 mg PO BID 10 days #20 tabs 09/18/22 levofloxacin 500 mg tablet 500 mg PO DAILY #10 tabs 09/21/22 metronidazole 500 mg tablet 500 mg PO Q8H #30 tabs 09/21/22 Allergies Allergy/AdvReac Type Severity Reaction Status Date / Time Penicillins [PENICILLINS] Allergy Intermediate HIVES/SWELL Verified 09/20/22 10:10 ING bupropion [From Wellbutrin] Allergy hives, Verified 09/20/22 10:10 swelling Review of Systems Review of Systems CONSTITUTIONAL: Denies weight loss, fever + chills. HEENT: Denies changes in vision and hearing. RESPIRATORY: Denies SOB and cough. CV: Denies palpitations no CP. GI: + abdominal pain, nausea, vomiting and diarrhea. : Denies dysuria and urinary frequency. MSK: Denies myalgia and joint pain. SKIN: Denies rash and pruritus. NEUROLOGICAL: Denies headache and syncope. PSYCHIATRIC: Denies recent changes in mood. Denies anxiety and depression. All other ROS are negative unless in HPI PMFSH Past Medical History Medical History Abdominal pain Acute diverticulitis Chronic idiopathic constipation Constipation Diarrhea Diverticulitis GERD (gastroesophageal reflux disease) Irritable bowel syndrome with diarrhea Left lower quadrant pain Sigmoid diverticulitis Tubular adenoma of colon Surgical History History of esophagogastroduodenoscopy (EGD) History of intestinal surgery History of partial hysterectomy (~09/2006) Hx of colonoscopy Hx of hemorrhoidectomy Family History Family History Father Cancer HTN (hypertension) Mother HTN (hypertension) Hyperthyroidism Migraine headache Maternal Grandmother History of breast cancer Paternal Grandmother History of breast cancer Family/Other Colon cancer Paternal Aunt Ovarian cancer Social History Social History Household Members: None Housing: Apartment Do you presently have visiting nurse or other home services: No Alcohol intake: never Patient Tobacco Use Status: Never used Tobacco Advance Directives: No service: No Current occupational status: disabled Physical Exam ED Vital Signs: Vital Signs - 24 hr 09/21/22 10:55 09/21/22 12:34 Temperature 97.4 F Pulse Rate 93 74 Respiratory Rate 17 14 Blood Pressure 125/74 123/72 Pulse Oximetry 98 99 Oxygen Delivery Method Room Air Room Air BMI result Body Mass Index 28.5 GEN: Well developed, no acute distress, alert, oriented HEENT: Normocephalic, atraumatic, normal external ears, nose appears normal, no oropharyngeal edema or exudates Eyes: Normal to appearance Neck: Supple, no lymphadenopathy Respiratory: Talks in complete sentences, no respiratory distress, clear to auscultation bilaterally Cardiovascular: Regular rate and rhythm, no murmurs rubs or gallops Abdomen: Soft, left lower quadrant tenderness, nondistended, positive guarding, no rebound Back: No CVA tenderness Extremities: No clubbing cyanosis or edema Neurologic: No focal neurologic deficits, cranial nerves 2-12 intact, strength is 5/5 bilaterally Skin: No rash Course Course Course Narrative: The workup is complete. Patient has colitis. She is nontoxic appearing. There is no evidence of perforation or phlegmonous changes. I discussed the option of potentially being admitted for intravenous antibiotics given recent hospitalizations or attempting to do outpatient therapy. She preferred to do outpatient. Discussed the medications in the appropriate use of them. We disc ussed close follow-up with Gastroenterology. She also was instructed to have a low threshold to return for re-evaluation. Medical Decision Making Medical Decision Making [facility] Narrative: Patient presents with left lower quadrant abdominal pain. Examination revealed tenderness. Differential diagnosis includes diverticulitis, colitis, UTI, IBS, IBD diagnoses including potential complications from but ever inflammatory process is likely to be going on. Will provide patient with analgesia frequent re-evaluation. Differential Diagnosis Differential Diagnoses: The differential diagnosis associated with the presentation includes (See above) Admission/Observation Consideration of admission/observation: Escalation of care including admission/observation considered Lab Data [facility] Lab Attestation statement: I reviewed the patient's lab results. 09/21/22 12:09 09/21/22 12:09 Labs: Lab Results 09/21/22 09/21/22 09/21/22 Range/Units 11:56 12:09 12:09 WBC 4.9 (4.8-10.8) X10*3/uL RBC 4.73 (4.20-5.50) X10*6/uL Hgb 12.6 (12.0-16.0) g/dl Hct 40.0 (37.0-47.0) % MCV 84.6 (80.0-98.0) fL MCH 26.6 L (27.0-33.0) pg MCHC 31.5 (31.0-35.0) g/dl RDW 13.6 (11.0-16.0) % Plt Count 290 (160-400) X10*3/uL MPV 9.1 L (9.4-12.3) fL Immature Gran % (Auto) 0.2 (0.0-0.4) % Neut % (Auto) 38.5 L (45-73) % Lymph % (Auto) 51.0 H (20-40) % [place] % (Auto) 7.7 (2-11) % Eos % (Auto) 1.8 (0-4) % Baso % (Auto) 0.8 (0-2) % Lymph # (Auto) 2.5 (1.2-4.9) X10*3/uL [place] # (Auto) 0.4 (0.1-1.2) X10*3/uL Eos # (Auto) 0.1 (0.0-0.4) X10*3/uL Baso # (Auto) 0.0 (0.0-0.2) X10*3/uL Abs Immat Gran (auto) 0.01 (0.00-0.03) X10*3/uL Absolute Neuts (auto) 1.9 L (2.0-8.3) x10*3/uL Absolute Nucleated RBC 0.000 (0.0-0.012) X10*3/uL Nucleated RBC % (auto) 0.0 (0.0-0.2) /100WBC Sodium 139 (135-145) mmol/L Potassium 4.8 D (3.3-5.1) mmol/L Chloride 107 (96-108) mmol/L Carbon Dioxide 26 (22-29) mmol/L Anion Gap 11 L (12-20) BUN 12 (9-16) mg/dL Creatinine 0.81 (0.5-1.4) mg/dL Estim Creat Clear Calc 75.1 Estimated GFR > 60 Random Glucose 93 (60-115) mg/dL Calcium 9.8 D (8.4-10.2) mg/dL Total Bilirubin 0.3 (0.0-1.0) mg/dL Direct Bilirubin 0.1 (0.0-0.5) mg/dL AST 19 (5-31) U/L ALT 22 (0-31) U/L Alkaline Phosphatase 63 (39-117) U/L Total Protein 7.2 (6.5-8.0) g/dL Albumin 4.1 (3.5-5.0) g/dL Lipase 19 (8-78) U/L Urine Color Dark Yellow Urine Appearance Clear Urine pH 5.5 (5.0-9.0) Ur Specific [place] >= 1.030 H (1.005-1.025) Urine Protein 30 (1+) H (Neg-Trace) mg/dL Urine Glucose (UA) Negative (Negative) mg/dL Urine Ketones Trace (Negative) mg/dL Urine Blood Negative (Negative) Urine Nitrite Negative (Negative) Ur Leukocyte Esterase Negative (Negative) Urine RBC 3-5 H (0-2) /HPF Urine WBC 0-5 (0-5) /HPF Ur Squamous Epith Cells 6-10 (0-2) /HPF Urine Bacteria Trace (None Seen) Hyaline Casts 6-10 (0-2) /LPF Independent Interpretation I performed an independent interpretation of an: CT Scan Radiology Impression Discussion of test interpretation with radiology: I have reviewed the radiologist's reading. Prescription Management I considered prescription management with: Pain Medication and Antibiotic Medications Administered Discontinued Medications Generic Name Dose Route Start Last Admin Trade Name Freq PRN Reason Stop Dose Admin Sodium Chloride 1,000 mls @ 999 mls/hr 09/21/22 13:15 09/21/22 15:30 Ns IV 09/21/22 14:15 Infused .Q1H1M PATRICK Infusion Iohexol 100 ml 09/21/22 14:22 09/21/22 14:22 Iohexol 350 Mg/Ml 100 Ml Infus..Btl IV 09/21/22 14:23 85 ml ONCE ONE Administration Morphine Sulfate 4 mg 09/21/22 13:07 09/21/22 13:40 Morphine Sulfate 4 Mg/Ml Cartridge IVPUSH 09/21/22 13:08 4 mg ONCE ONE Administration Protocol Ondansetron HCl 4 mg 09/21/22 13:07 09/21/22 13:40 Ondansetron Hcl 4 Mg/2 Ml Vial IVPUSH 09/21/22 13:08 4 mg ONCE ONE Administration Discharge Plan Discharge Clinical Impression: Abdominal pain, Colitis Patient Disposition: Home, Self-Care Instructions: Abdominal Pain (ED), Colitis (ED) Prescriptions: New levofloxacin 500 mg tablet 500 mg PO DAILY Qty: 10 0RF metronidazole 500 mg tablet 500 mg PO Q8H Qty: 30 0RF No Action nabumetone 750 mg tablet 750 mg PO BID Qty: 60 3RF pantoprazole 40 mg tablet,delayed release (DR/EC) 40 mg PO DAILY Qty: 90 2RF loperamide 2 mg Capsule 2 mg PO Q6H PRN (Reason: Diarrhea) Qty: 20 0RF lisinopril 20 mg tablet 20 mg PO DAILY zolpidem 12.5 mg tablet,ext release multiphase 12.5 mg PO BEDTIME PRN (Reason: Insomnia) sumatriptan succinate 100 mg tablet 100 mg PO DAILY MRX1 nortriptyline 50 mg capsule 100 mg PO QPM Emgality Pen 120 mg/mL pen injector 120 mg subcut Q4W metoprolol tartrate 25 mg tablet 25 mg PO BID cholecalciferol (vitamin D3) 25 mcg (1,000 unit) tablet 25 mcg PO QAM aripiprazole 15 mg tablet 15 mg PO QAM ondansetron 4 mg tablet,disintegrating 4 mg PO TID PRN (Reason: nausea and vomiting) 5 Days Qty: 30 3RF dicyclomine 20 mg tablet 40 mg PO QID 30 Days Qty: 240 3RF fidaxomicin 200 mg tablet 200 mg PO BID 10 Days Qty: 20 0RF buspirone 15 mg tablet 15 mg PO BID alosetron [Lotronex] 0.5 mg tablet 1 mg PO BID Qty: 60 6RF budesonide 3 mg capsule,delayed,extend.release 9 mg PO DAILY Qty: 14 0RF Referrals: Daiana Pastor, ANP-C [Nurse Practitioner] - 3 days
[2022-09-21] MEDS: ondansetron HCL 4 MG/2 ML VIAL IVPUSH (13:40)
[2022-09-21] MEDS: Morphine Sulfate 4 MG/ML CARTRIDGE IVPUSH (13:40)
[2022-09-21] MEDS: 0.9 % Sodium Chloride 1,000 ML 999 ML IV (13:41)
--- NOTE | 2022-09-21 13:46 | PC.NURSE ---
20g iv inserted in RAC, meds and fluids given as ordered. vss.
[2022-09-21] MEDS: iohexoL 350 MG/ML 100 ML INFUS..BTL IV (14:22)
[2022-09-21] MEDS: metroNIDAZOLE 500 MG TABLET PO (15:41)
[2022-09-21] MEDS: levoFLOXacin 500 MG TABLET PO (15:41)
[2022-09-21 15:50] VITALS: BP 126/75
== END 2022-09-21 15:50 | disposition home or self-care (01) ==
PROVIDERS: Emergency Provider Emergency Medicine; PCP Internal Medicine
DX: K52.9 Noninfective gastroenteritis and colitis, unspecified (principal); R10.32 Left lower quadrant pain
CPT/HCPCS: 36415; 74177; 80048; 80076; 81001; 81003; 83690; 85025; 96361; 96374; 96375; 99284; J2270; J2405; Q9967

== ENCOUNTER 2022-09-28 09:14 | Emergency (ER) | payer MEDICAID, SELFPAY ==
[2022-09-28] VITALS (7 sets, daily range): BP systolic 104–133; BP diastolic 46–97; PULSE 69–86; RESP 12–16; TEMP 36.5–36.8; O2SAT 96–100; BMI 27.8
[2022-09-28 10:51] LABS: MANUAL DIFF FLAG NO
[2022-09-28 10:52] LABS: Basophils Percent Auto 0.5 % (0-2); Eosinophils Absolute Auto 0.1 X10*3/uL (0.0-0.4); Eosinophils Percent Auto 2.3 % (0-4); Hematocrit 41.6 % (37.0-47.0); Hemoglobin 13.4 g/dl (12.0-16.0); Imm Gran Abs Auto 0.02 X10*3/uL (0.00-0.03); Imm Gran Pct Auto 0.3 % (0.0-0.4); Lymphocytes Absolute Auto 2.7 X10*3/uL (1.2-4.9); Lymphocytes Percent Auto 44.4 % (20-40); Mean Corpuscular HGB Conc 32.2 g/dl (31.0-35.0); Mean Corpuscular Hemoglobin 26.8 pg (27.0-33.0); Mean Corpuscular Volume 83.2 fL (80.0-98.0); Mean Platelet Volume 9.3 fL (9.4-12.3); Monocytes Absolute Auto 0.4 X10*3/uL (0.1-1.2); Monocytes Percent Auto 6.5 % (2-11); Neutrophils Absolute Auto 2.8 x10*3/uL (2.0-8.3); Platelet Count 345 X10*3/uL (160-400); Red Cell Distribution Width 13.5 % (11.0-16.0)
[2022-09-28 11:07] LABS: Anion Gap 13 (12-20); Blood Urea Nitrogen 12 mg/dL (9-16); Calcium 9.3 mg/dL (8.4-10.2); Carbon Dioxide 26 mmol/L (22-29); Chloride 102 mmol/L (96-108); Creatinine Clr Calc Pharmacy 67.7; Estimated Glomerular Filt Rate > 60; Glucose Random 92 mg/dL (60-115); Potassium 3.9 mmol/L (3.3-5.1); Sodium 137 mmol/L (135-145)
--- NOTE | 2022-09-28 11:11 | ED_ITS ---
HPI - Nausea/Vomiting/Diarrhea General Chief complaint: Nausea/Vomiting/Diarrhea Stated complaint: vomiting diarrhea for 2 weeks Time Seen by Provider: 09/28/22 11:09 Source: patient and old records reviewed Mode of arrival: ambulatory Limitations: no limitations History of Present Illness HPI Narrative: 57 yo female with history of diverticulitis, GERD, IBS w/ diarrhea, hx C diff in August (admitted 08/14-08/20), recent ER visit on 09/21 for colitis (sent home on levaquin and flagyl) who presents back to the ER for evaluation of ongoing nausea, vomiting and diarrhea. She reports no improvement with the antibiotics. She is having 5-6 loose BMs per day. She reports intermittent pain up to 10/10, cramping in nature in the RUQ and LLQ. She vomited yesterday. No fever or chills. No urinary symptoms. She denies blood in her stool. She reports it smells and looks like when she had Cdiff a month ago. MD elicited complaint: nausea, vomiting, diarrhea and abdominal pain Onset (ago): week(s) (1) Description of vomiting: food contents Description of diarrhea: watery and loose Associated nausea: Yes Associated abdominal pain: Yes Location of pain: RUQ and LLQ Radiation: diffuse Pain consistency: intermittent Severity: severe Quality: cramping Exacerbating factors: none Relieving factors: none Context: recent antibiotic use Associated symptoms: loss of appetite, malaise, nausea/vomiting, weakness and fatigue Related Data Home Medications Medication Instructions Recorded Confirmed galcanezumab-gnlm 120 mg/mL 120 mg subcut Q4W 11/25/21 08/14/22 subcutaneous pen injector (Emgality Pen) lisinopril 20 mg tablet 20 mg PO DAILY 11/25/21 08/14/22 metoprolol tartrate 25 mg tablet 25 mg PO BID 11/25/21 08/14/22 nortriptyline 50 mg capsule 100 mg PO QPM 11/25/21 08/14/22 sumatriptan succinate 100 mg tablet 100 mg PO DAILY MRX1 migraine 11/25/21 08/14/22 zolpidem 12.5 mg tablet,extended 12.5 mg PO BEDTIME PRN Insomnia 11/25/21 08/14/22 release,multiphase aripiprazole 15 mg tablet 15 mg PO QAM 03/31/22 08/14/22 buspirone 15 mg tablet 15 mg PO BID 07/14/22 08/14/22 cholecalciferol (vitamin D3) 25 25 mcg PO QAM 09/20/22 mcg (1,000 unit) tablet Previous Rx's Medication Instructions Recorded ondansetron 4 mg disintegrating 4 mg PO TID PRN nausea and 02/28/22 tablet vomiting 5 days #30 tabs dicyclomine 20 mg tablet 40 mg PO QID 30 days #240 tabs 05/24/22 alosetron 0.5 mg tablet (Lotronex) 1 mg PO BID #60 tabs 07/14/22 nabumetone 750 mg tablet 750 mg PO BID #60 tabs 08/10/22 budesonide 3 mg 9 mg PO DAILY #14 ea 08/11/22 capsule,delayed,extended release loperamide 2 mg capsule 2 mg PO Q6H PRN Diarrhea #20 caps 08/20/22 pantoprazole 40 mg tablet,delayed 40 mg PO DAILY #90 tabs 08/22/22 release fidaxomicin 200 mg tablet 200 mg PO BID 10 days #20 tabs 09/18/22 levofloxacin 500 mg tablet 500 mg PO DAILY #10 tabs 09/21/22 metronidazole 500 mg tablet 500 mg PO Q8H #30 tabs 09/21/22 Allergies Allergy/AdvReac Type Severity Reaction Status Date / Time Penicillins [PENICILLINS] Allergy Intermediate HIVES/SWELL Verified 09/20/22 10:10 ING bupropion [From Wellbutrin] Allergy hives, Verified 09/20/22 10:10 swelling Review of Systems Review of Systems: Yes all other systems are reviewed and are negative Gastrointestinal: Gastrointestinal: Reports nausea PMFSH Past Medical History Medical History Abdominal pain Acute diverticulitis Chronic idiopathic constipation Constipation Diarrhea Diverticulitis GERD (gastroesophageal reflux disease) Irritable bowel syndrome with diarrhea Left lower quadrant pain Sigmoid diverticulitis Tubular adenoma of colon Surgical History History of esophagogastroduodenoscopy (EGD) History of intestinal surgery History of partial hysterectomy (~09/2006) Hx of colonoscopy Hx of hemorrhoidectomy Family History Family History Father Cancer HTN (hypertension) Mother HTN (hypertension) Hyperthyroidism Migraine headache Maternal Grandmother History of breast cancer Paternal Grandmother History of breast cancer Family/Other Colon cancer Paternal Aunt Ovarian cancer Social History Social History Household Members: None Housing: Apartment Do you presently have visiting nurse or other home services: No Alcohol intake: never Patient Tobacco Use Status: Never used Tobacco Smoked in Last 30 Days: No Use of substances other than those prescribed or required for medical reasons: No Advance Directives: No Advance Directives Information Provided: Yes service: No Current occupational status: disabled Physical Exam Vital Signs: Vital Signs: Last Vital Signs Temp 97.8 F 09/28/22 13:52 Pulse 70 09/28/22 13:52 Resp 16 09/28/22 13:52 BP 108/46 L 09/28/22 13:52 Pulse Ox 100 09/28/22 13:52 O2 Del Method Room Air 09/28/22 13:52 BMI result Body Mass Index 27.8 Appearance: Alert. Oriented X3. No acute distress. Head: normocephalic, atraumatic. Eyes: Pupils equal, round and reactive to light. ENT: Pharynx normal. No tonsillar swelling or exudate. Neck: Normal inspection. Neck supple. CVS: Normal heart rate and rhythm. Pulses normal. Respiratory: No respiratory distress. Breath sounds normal. Abdomen: Soft with moderate tenderness throughout, no rebound or guarding, hyperactive +BS x4 Skin: Skin warm and dry. Normal skin color. Normal skin turgor. No rashes. Extremities: No lower extremity edema. No joint swelling. Neuro/psych: Oriented X 3. No motor deficit. No sensory deficit. CN II-XII intact. Normal speech and cognition. Medications Administered Discontinued Medications Generic Name Dose Route Start Last Admin Trade Name Freq PRN Reason Stop Dose Admin Fentanyl 50 mcg 09/28/22 13:41 09/28/22 14:26 Fentanyl Citrate/Pf 100 Mcg/2 Ml Vial IVPUSH 09/28/22 13:42 50 mcg ONCE ONE Administration Protocol Sodium Chloride 1,000 mls @ 999 mls/hr 09/28/22 11:15 09/28/22 13:29 Ns IVCONT 09/28/22 12:15 Infused .Q1H1M PATRICK Infusion Sodium Chloride 1,000 mls @ 999 mls/hr 09/28/22 13:00 09/28/22 14:27 Ns IVCONT 09/28/22 14:00 999 mls/hr .Q1H1M PATRICK Administration Ketorolac Tromethamine 15 mg 09/28/22 11:20 09/28/22 11:49 Ketorolac Tromethamine 15 Mg/Ml Vial IVPUSH 09/28/22 11:21 15 mg ONCE ONE Administration Ondansetron HCl 4 mg 09/28/22 11:20 09/28/22 11:49 Ondansetron Hcl 4 Mg/2 Ml Vial IVPUSH 09/28/22 11:21 4 mg ONCE ONE Administration Medical Decision Making Medical Decision Making MDM Narrative: 57 yo female with history of diverticulitis, GERD, IBS w/ diarrhea, hx C diff in August (admitted 08/14-08/20), recent ER visit on 09/21 for colitis (sent home on levaquin and flagyl) who presents back to the ER for evaluation of ongoing nausea, vomiting and diarrhea. Abd is soft and nondistended. Reporting 10/10 pain but appears comfortable and just drank a remy shital. treated with toradol and fentanyl with improvement. labs are unremarkable. orthostatics negative. CDIFF positive. spoke w/ Dr. Sandra - plan to start fidaxomicin 200 mg bid x10 days then follow up. may need prolonged vanco after this course Differential Diagnosis Differential Diagnoses: The differential diagnosis associated with the pres entation includes c diff colitis, diverticulitis, cholecystitis, less likely abscess or perforation Admission/Observation Consideration of admission/observation: Escalation of care including admission/observation considered recurrent visit for abd pain, N/V/D Consult Healthcare Provider Management of the patient was discussed with: Automatic Spooler Operator Dr. Sandra ID Lab Data MDM Lab Attestation statement: I reviewed the patient's lab results. 09/28/22 10:46 09/28/22 10:46 Labs: Lab Results 09/28/22 09/28/22 09/28/22 Range/Units 10:46 10:46 10:46 WBC 6.0 (4.8-10.8) X10*3/uL RBC 5.00 (4.20-5.50) X10*6/uL Hgb 13.4 (12.0-16.0) g/dl Hct 41.6 (37.0-47.0) % MCV 83.2 (80.0-98.0) fL MCH 26.8 L (27.0-33.0) pg MCHC 32.2 (31.0-35.0) g/dl RDW 13.5 (11.0-16.0) % Plt Count 345 (160-400) X10*3/uL MPV 9.3 L (9.4-12.3) fL Immature Gran % (Auto) 0.3 (0.0-0.4) % Neut % (Auto) 46.0 (45-73) % Lymph % (Auto) 44.4 H (20-40) % Perry % (Auto) 6.5 (2-11) % Eos % (Auto) 2.3 (0-4) % Baso % (Auto) 0.5 (0-2) % Lymph # (Auto) 2.7 (1.2-4.9) X10*3/uL Perry # (Auto) 0.4 (0.1-1.2) X10*3/uL Eos # (Auto) 0.1 (0.0-0.4) X10*3/uL Baso # (Auto) 0.0 (0.0-0.2) X10*3/uL Abs Immat Gran (auto) 0.02 (0.00-0.03) X10*3/uL Absolute Neuts (auto) 2.8 (2.0-8.3) x10*3/uL Absolute Nucleated RBC 0.000 (0.0-0.012) X10*3/uL Nucleated RBC % (auto) 0.0 (0.0-0.2) /100WBC ESR 16 (0-20) MM/HR Sodium 137 (135-145) mmol/L Potassium 3.9 (3.3-5.1) mmol/L Chloride 102 (96-108) mmol/L Carbon Dioxide 26 (22-29) mmol/L Anion Gap 13 (12-20) BUN 12 (9-16) mg/dL Creatinine 0.89 (0.5-1.4) mg/dL Estim Creat Clear Calc 67.7 Estimated GFR > 60 Random Glucose 92 (60-115) mg/dL Calcium 9.3 (8.4-10.2) mg/dL Total Bilirubin 0.4 (0.0-1.0) mg/dL Direct Bilirubin 0.1 (0.0-0.5) mg/dL AST 17 (5-31) U/L ALT 16 (0-31) U/L Alkaline Phosphatase 62 (39-117) U/L C-Reactive Protein 0.17 (< or = 0.50) mg/dL Total Protein 7.4 (6.5-8.0) g/dL Albumin 4.1 (3.5-5.0) g/dL Stl C. cayetanensis PCR (Not Detect.) Stool Rotavirus A PCR (Not Detect.) Stl Adenov F 40/41 PCR (Not Detect.) Stool Astrovirus (PCR) (Not Detect.) Stool Campylobacter PCR (Not Detect.) Stool Cryptosporidium PCR (Not Detect.) Stl Sh Tox Pr E STEC PCR (Not Detect.) Stool E coli O157 PCR (Not Detect.) Stl Enterotoxigenic E PCR (Not Detect.) Stool EPEC (PCR) (Not Detect.) Stool EAEC (PCR) (Not Detect.) Stl E. histolytica PCR (Not Detect.) Stool Giardia Lamblia PCR (Not Detect.) Stl P. shigelloides PCR (Not Detect.) Stool Salmonella PCR (Not Detect.) Stool Sapovirus (PCR) (Not Detect.) Stl Shigella/EIEC PCR (Not Detect.) St Y.enterocolitica PCR (Not Detect.) Stool Vibrio (PCR) (Not Detect.) Stl Vibrio cholerae PCR (Not Detect.) Stl Norovirus GI/GII PCR (Not Detect.) C. difficile Tox B Gene (Negative) 09/28/22 09/28/22 Range/Units 14:29 14:30 WBC (4.8-10.8) X10*3/uL RBC (4.20-5.50) X10*6/uL Hgb (12.0-16.0) g/dl Hct (37.0-47.0) % MCV (80.0-98.0) fL MCH (27.0-33.0) pg MCHC (31.0-35.0) g/dl RDW (11.0-16.0) % Plt Count (160-400) X10*3/uL MPV (9.4-12.3) fL Immature Gran % (Auto) (0.0-0.4) % Neut % (Auto) (45-73) % Lymph % (Auto) (20-40) % Perry % (Auto) (2-11) % Eos % (Auto) (0-4) % Baso % (Auto) (0-2) % Lymph # (Auto) (1.2-4.9) X10*3/uL Perry # (Auto) (0.1-1.2) X10*3/uL Eos # (Auto) (0.0-0.4) X10*3/uL Baso # (Auto) (0.0-0.2) X10*3/uL Abs Immat Gran (auto) (0.00-0.03) X10*3/uL Absolute Neuts (auto) (2.0-8.3) x10*3/uL Absolute Nucleated RBC (0.0-0.012) X10*3/uL Nucleated RBC % (auto) (0.0-0.2) /100WBC ESR (0-20) MM/HR Sodium (135-145) mmol/L Potassium (3.3-5.1) mmol/L Chloride (96-108) mmol/L Carbon Dioxide (22-29) mmol/L Anion Gap (12-20) BUN (9-16) mg/dL Creatinine (0.5-1.4) mg/dL Estim Creat Clear Calc Estimated GFR Random Glucose (60-115) mg/dL Calcium (8.4-10.2) mg/dL Total Bilirubin (0.0-1.0) mg/dL Direct Bilirubin (0.0-0.5) mg/dL AST (5-31) U/L ALT (0-31) U/L Alkaline Phosphatase (39-117) U/L C-Reactive Protein (< or = 0.50) mg/dL Total Protein (6.5-8.0) g/dL Albumin (3.5-5.0) g/dL Stl C. cayetanensis PCR Not Detected (Not Detect.) Stool Rotavirus A PCR Not Detected (Not Detect.) Stl Adenov F 40/41 PCR Not Detected (Not Detect.) Stool Astrovirus (PCR) Not Detected (Not Detect.) Stool Campylobacter PCR Not Detected (Not Detect.) Stool Cryptosporidium PCR Not Detected (Not Detect.) Stl Sh Tox Pr E STEC PCR Not Detected (Not Detect.) Stool E coli O157 PCR Not applicable (Not Detect.) Stl Enterotoxigenic E PCR Not Detected (Not Detect.) Stool EPEC (PCR) Not Detected (Not Detect.) Stool EAEC (PCR) Not Detected (Not Detect.) Stl E. histolytica PCR Not Detected (Not Detect.) Stool Giardia Lamblia PCR Not Detected (Not Detect.) Stl P. shigelloides PCR Not Detected (Not Detect.) Stool Salmonella PCR Not Detected (Not Detect.) Stool Sapovirus (PCR) Not Detected (Not Detect.) Stl Shigella/EIEC PCR Not Detected (Not Detect.) St Y.enterocolitica PCR Not Detected (Not Detect.) Stool Vibrio (PCR) Not Detected (Not Detect.) Stl Vibrio cholerae PCR Not Detected (Not Detect.) Stl Norovirus GI/GII PCR Not Detected (Not Detect.) C. difficile Tox B Gene POSITIVE A* (Negative) External Record Review External record reviewed: Inpatient record, Outpatient record, Prior outpatient labs and Prior outpatient radiology Prescription Management I considered prescription management with: Pain Medication and Antibiotic Chronic Conditions Patient?s care impacted by: Other (gerd) Critical Care Time Critical Care Time Critical Care Time: No Discharge Plan Discharge Clinical Impression: C. difficile colitis Patient Disposition: Home, Self-Care Instructions: C. Diff (Clostridioides Difficile) Infection (ED) Additional Instructions: Take the previously prescribed fidaxomicin 200 mg two times per day for 10 days Follow up with Dr. Sandra and your PCP Rest and drink plenty of fluids If you develop new or worsening symptoms call 911 or come back to the ER for further evaluation. Prescriptions: No Action nabumetone 750 mg tablet 750 mg PO BID Qty: 60 3RF pantoprazole 40 mg tablet,delayed release (DR/EC) 40 mg PO DAILY Qty: 90 2RF loperamide 2 mg Capsule 2 mg PO Q6H PRN (Reason: Diarrhea) Qty: 20 0RF levofloxacin 500 mg tablet 500 mg PO DAILY Qty: 10 0RF metronidazole 500 mg tablet 500 mg PO Q8H Qty: 30 0RF lisinopril 20 mg tablet 20 mg PO DAILY zolpidem 12.5 mg tablet,ext release multiphase 12.5 mg PO BEDTIME PRN (Reason: Insomnia) sumatriptan succinate 100 mg tablet 100 mg PO DAILY MRX1 nortriptyline 50 mg capsule 100 mg PO QPM Emgality Pen 120 mg/mL pen injector 120 mg subcut Q4W metoprolol tartrate 25 mg tablet 25 mg PO BID cholecalciferol (vitamin D3) 25 mcg (1,000 unit) tablet 25 mcg PO QAM aripiprazole 15 mg tablet 15 mg PO QAM ondansetron 4 mg tablet,disintegrating 4 mg PO TID PRN (Reason: nausea and vomiting) 5 Days Qty: 30 3RF dicyclomine 20 mg tablet 40 mg PO QID 30 Days Qty: 240 3RF fidaxomicin 200 mg tablet 200 mg PO BID 10 Days Qty: 20 0RF buspirone 15 mg tablet 15 mg PO BID alosetron [Lotronex] 0.5 mg tablet 1 mg PO BID Qty: 60 6RF budesonide 3 mg capsule,delayed,extend.release 9 mg PO DAILY Qty: 14 0RF Referrals: Judit Sandra MD [Physician] - Claribel Grissom MD [Primary Care Provider] - Print Language: Nauruan
[2022-09-28 11:39] LABS: Alanine Aminotransferase 16 U/L (0-31); Albumin Level 4.1 g/dL (3.5-5.0); Alkaline Phosphatase 62 U/L (39-117); Aspartate Amino Transferase 17 U/L (5-31); Bilirubin Direct 0.1 mg/dL (0.0-0.5); Bilirubin Total 0.4 mg/dL (0.0-1.0); C Reactive Protein 0.17 mg/dL (< or = 0.50); Total Protein 7.4 g/dL (6.5-8.0)
[2022-09-28] MEDS: Ketorolac Tromethamine 15 MG/ML VIAL IVPUSH (11:49)
[2022-09-28] MEDS: ondansetron HCL 4 MG/2 ML VIAL IVPUSH (11:49)
[2022-09-28] MEDS: 0.9 % Sodium Chloride 1,000 ML 999 ML IVCONT ×2 (12:23→14:27)
[2022-09-28 12:26] LABS: Erythrocyte Sedimentation Rate 16 MM/HR (0-20)
[2022-09-28] MEDS: fentaNYL citrate/PF 100 MCG/2 ML VIAL 50 MCG IVPUSH (14:26)
[2022-09-28 15:48] LABS: CDiff Gene PCR POSITIVE (Negative)
[2022-09-28 16:12] LABS: Campylobacter Not Detected (Not Detect.); Cryptosporidium Not Detected (Not Detect.); Cyclospora cayetanensis Not Detected (Not Detect.); E. coli EAEC Not Detected (Not Detect.); E. coli EPEC Not Detected (Not Detect.); E. coli ETEC Not Detected (Not Detect.); E. coli STEC Not Detected (Not Detect.); Entamoeba histolytica Not Detected (Not Detect.); Plesiomonas shigelloides Not Detected (Not Detect.); Salmonella Not Detected (Not Detect.); Shigella sp./EIEC Not Detected (Not Detect.); Vibrio Not Detected (Not Detect.); Vibrio Cholerae Not Detected (Not Detect.); Yersinia enterocolitica Not Detected (Not Detect.)
[2022-09-28 16:13] LABS: Adenovirus F 40/41 Not Detected (Not Detect.); Astrovirus Not Detected (Not Detect.); Giardia lamblia Not Detected (Not Detect.); Norovirus GI/GII Not Detected (Not Detect.); Rotavirus A Not Detected (Not Detect.); Sapovirus Not Detected (Not Detect.)
[2022-09-28 16:23] LABS: CDIFF Internal ctrl Dots and bkg OK (V); CDiff Toxin Negative (Negative)
== END 2022-09-28 16:38 | disposition home or self-care (01) ==
PROVIDERS: Physician Assistant; Emergency Provider Emergency Medicine; PCP Internal Medicine
DX: A04.71 Enterocolitis due to Clostridium difficile, recurrent (principal); K58.0 Irritable bowel syndrome with diarrhea; Z79.899 Other long term (current) drug therapy
CPT/HCPCS: 36415; 80048; 80076; 85025; 85652; 86140; 87324; 87493; 87507; 96361; 96374; 96375; 99284; 99285; J1885; J2405; J3010

== ENCOUNTER 2022-10-24 12:52 | Outpatient (AMB) | payer MEDICAID, SELFPAY ==
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
[2022-10-24 13:06] VITALS: BP 111/52; PULSE 70; BMI 27.9
== END 2022-10-24 14:17 | disposition home or self-care (01) ==
PROVIDERS: PCP Internal Medicine; Visit Provider Nurse Practitioner
DX: K57.92 Diverticulitis of intestine, part unspecified, without perforation or abscess without bleeding (principal); K58.0 Irritable bowel syndrome with diarrhea; D12.6 Benign neoplasm of colon, unspecified; K21.9 Gastro-esophageal reflux disease without esophagitis
CPT/HCPCS: 99213

== ENCOUNTER → 2022-10-24 12:52 | Outpatient (BNVA) | payer MEDICAID, SELFPAY | PROVIDERS: PCP Internal Medicine; Visit Provider Nurse Practitioner | DX: K57.92 Diverticulitis of intestine, part unspecified, without perforation or abscess without bleeding (principal); K58.0 Irritable bowel syndrome with diarrhea; K21.9 Gastro-esophageal reflux disease without esophagitis; D12.6 Benign neoplasm of colon, unspecified | CPT/HCPCS: 99212 ==

== ENCOUNTER 2022-11-14 08:30 | Outpatient (AMB) | payer MEDICAID, SELFPAY ==
--- NOTE | 2022-11-14 08:32 | MHC.OFFVIS ---
Intake Vital Signs 11/14/22 08:35 Height 5 ft 4 in Weight 163 lb 2.273 oz BMI 28.0 BP 130/58 L Blood Pressure Location Lt brachial Position Sitting Pulse 76 Intake Visit Reasons: 2 weeks Follow up Intake Note: Kacy presents in the office as a 2 week follow up. CC: She states that she is not having any concerns today - everything still feels the same as it was the previous appt. [employer] Required: Yes Retail [employer] Name: Mayra [id number] Allergies Penicillins [PENICILLINS] Allergy (Intermediate, Verified 11/22/22 08:47) HIVES/SWELLING bupropion [From Wellbutrin] Allergy (Verified 11/22/22 08:47) hives, swelling HPI 2 weeks Follow up HPI Details Assessment & Plan (1) Acute diverticulitis: Code(s): K57.92 - Diverticulitis of intestine, part unspecified, without perforation or abscess without bleeding Plan: Australian #[id number] She was admitted after seeing Dr. Veliz via the ER and the presumptive dx was c diff. HOwever, she had many rounds of abx and absolutely no improvement. Also, the toxins were neg so this may just be colonization. She just completed difficid, and had an ID consults as well. She still has diarrhea at least 15 times a day, stomach pain, N/V and weight loss. She is really suffering! She has stopped taking all medications since none have helped including her bentyl, lotronex, loperimide and pantoprazole. I will try to approach this from the angle of the inflammation, fecal calprotectins neg in past, will try budesinide (which she never tried) and see how she reacts. IF positive then consider re presenting this it Dr. Veliz for surgery. If not, consider stool samples etc and referral out. ? stool transplant. May consider repeat US (has had many CT's.......). ROV 2 weeks. So far, no stool allergies, (2) Irritable bowel syndrome with diarrhea: Code(s): K58.0 - Irritable bowel syndrome with diarrhea (3) Tubular adenoma of colon: Comment: 2022 scope= 1 TA repeat 3-4 years due to fair left sided prep Code(s): D12.6 - Benign neoplasm of colon, unspecified (4) GERD (gastroesophageal reflux disease): Code(s): K21.9 - Gastro-esophageal reflux disease without esophagitis Medications: Changed From budesonide ER 9 mg (3 x 3 mg) PO DAILY 14 ea 0RF R19.7 - Diarrhea, unspecified To budesonide ER 9 mg (3 x 3 mg) PO DAILY 90 ea 1RF 3 0 days R19.7 - Diarrhea, unspecified On Hold pantoprazole Ho ld Comment: Docto r's Order 40 mg PO DAILY 90 tabs 2RF K21.9 - Gastro-eso phageal reflux dis ease without esoph agitis, K59.00 - C onstipation, unspe cified, R10.13 - E pigastric pain, R1 0.9 - Unspecified abdominal pain loperamide Hold Comment: Doctor' s Order 2 mg PO Q6H PRN 2 0 caps 0RF Diarrhe a dicyclomine Hol d Comment: Doctor 's Order 40 mg (2 x 20 mg) PO QID 30 days 240 tabs 3RF alosetron (Lotrone x) Hold Comment : Doctor's Order 1 mg (2 x 0.5 mg) PO BID 60 tabs 6RF K58.0 - Irritable bowel syndrome wit h diarrhea TODAYS VISIT Australian #Grace and Carlyn She received the budesinide and it has not changed her sx, she continues with vomiting and diarrhea. She also still has has LLQ pain. At this point, I am out of ideas and will refer her to an MD in our practice for a second opinion. [facility] Medical History Left lower quadrant pain Tubular adenoma of colon Irritable bowel syndrome with diarrhea Sigmoid diverticulitis Acute diverticulitis Diarrhea Diverticulitis Abdominal pain GERD (gastroesophageal reflux disease) Chronic idiopathic constipation Constipation Surgical History History of intestinal surgery History of partial hysterectomy (~09/2006) Hx of hemorrhoidectomy Hx of colonoscopy History of esophagogastroduodenoscopy (EGD) Family History Father Cancer HTN (hypertension) Mother HTN (hypertension) Hyperthyroidism Migraine headache Maternal Grandmother History of breast cancer Paternal Grandmother History of breast cancer Family/Other Colon cancer Paternal Aunt Ovarian cancer Social History Household Members: None Housing: Apartment Do you presently have visiting nurse or other home services: No Alcohol intake: never Patient Tobacco Use Status: Never used Tobacco service: No Current occupational status: disabled Female Reproductive History Menstrual Age of Menarche: 7 Review of Systems Const Denies fatigue, Denies fever(s), Denies night sweats, Reports poor appetite and Denies weight loss Eyes Details: glasses Reports requires corrective lenses ENT Reports Normal hearing present, Denies dental pain, Denies dysphagia, Denies hearing loss, Denies mouth pain, Denies odynophagia, Denies throat swelling, Denies tongue swelling and Reports other (Dentition adequate) Card Reports no additional complaints Resp Reports no additional complaints GI Reports abdominal pain, Denies melena, Denies bloating, Denies hematochezia, Denies constipation, Denies GI cramping, Denies dysphagia, Denies excessive flatus, Denies early satiety, Reports heartburn, Reports diarrhea, Denies nausea, Denies odynophagia, Denies vomiting and Denies hematemesis Skin/Breast Denies pruritus, Denies lesions, Denies rash and Denies jaundice Neuro Reports Normal hearing present and Denies Abnormal speech present Endo Denies fatigue Aller/Immun Denies throat swelling and Denies tongue swelling Physical Exam Vital Signs: Last Vital Signs Pulse 76 11/14/22 08:35 BP 130/58 L 11/14/22 08:35 BMI result Body Mass Index 28.0 Const General: cooperative, no acute distress, well developed and well groomed Nutritional Appearance: average body habitus and well nourished Orientation/consciousness: oriented to person, oriented to place and oriented to time Limitations: language barrier HEENT Head: Yes normocephalic and Yes atraumatic Eyes General: appearance normal, both eyes and all related structures Pupils: Equal, round and reactive pupils present Neck Neck: Yes normal visual inspection and Yes no lymphadenopathy Thyroid: Thyroid normal Resp Effort & Inspection: normal respiratory effort and able to speak in complete sentences Auscultation: clear to auscultation bilaterally Cardio Rate: regular rate Rhythm: regular rhythm Heart sounds: Normal, physiologic split S2 sound present Peripheral pulses: radial pulses present and posterior tibial pulses present GI Inspection: No distended and No Abdominal panniculus present Palpation (GI): Soft to palpation, Tenderness to palpation present (GI), no guarding, not rigid and No hepatosplenomegaly present Percussion: Yes normal to percussion Auscultation: normal bowel sounds Rectal Exam - Female: deferred Skin General skin exam: no rashes or lesions noted, turgor normal, skin not dry, no jaundice, No spider nevi and no striae Rashes: no rashes Nails: normal Neuro General: oriented to person, oriented to place and oriented to time Cranial nerves: Yes Equal, round and reactive pupils present and Yes Normal hearing present Speech: No Abnormal speech present Extrem General: Yes normal to inspection, No clubbing, No cyanosis and No edema Psych Appearance: grossly normal and well kempt Mental Status: mental status grossly normal Speech and movement: Normal speech and movement present Affect: normal affect Attitude: cooperative Thought process: Normal thought process present and not confabulating Thought content: Normal thought content present Insight: Fair insight present (Psych) Judgement: Fair judgement present (Psych) Assessment & Plan Assessment & Plan (1) Left lower quadrant pain: Code(s): R10.32 - Left lower quadrant pain Plan: Australian #Grace and Carlyn She received the budesinide and it has not changed her sx, she continues with vomiting and diarrhea. She also still has has LLQ pain. At this point, I am out of ideas and will refer her to an MD in our practice for a second opinion. (2) Irritable bowel syndrome with diarrhea: Code(s): K58.0 - Irritable bowel syndrome with diarrhea (3) Clostridioides difficile diarrhea: Comment: Check for signs of toxicity which would come from elevated CBC Code(s): A04.72 - Enterocolitis due to Clostridium difficile, not specified as recurrent (4) GERD (gastroesophageal reflux disease): Code(s): K21.9 - Gastro-esophageal reflux disease without esophagitis Orders: Orders US abdomen complete 11/14/22 R10.32 - Left lower quadrant pain Coding Level of Care Code Est Pt Level 3 (97397) Diagnoses Left lower quadrant pain R10.32 Irritable bowel syndrome with diarrhea K58.0 Clostridioides difficile diarrhea A04.72 GERD (gastroesophageal reflux disease) K21.9
[2022-11-14 08:35] VITALS: BP 130/58; PULSE 76; BMI 28.0
== END 2022-11-14 09:02 | disposition home or self-care (01) ==
PROVIDERS: PCP Internal Medicine; Visit Provider Nurse Practitioner
DX: R10.32 Left lower quadrant pain (principal); K58.0 Irritable bowel syndrome with diarrhea; A04.72 Enterocolitis due to Clostridium difficile, not specified as recurrent; K21.9 Gastro-esophageal reflux disease without esophagitis
CPT/HCPCS: 99213

== ENCOUNTER → 2022-11-14 08:30 | Outpatient (BNVA) | payer MEDICAID, SELFPAY | PROVIDERS: PCP Internal Medicine; Visit Provider Nurse Practitioner | DX: K58.0 Irritable bowel syndrome with diarrhea (principal); A04.72 Enterocolitis due to Clostridium difficile, not specified as recurrent; K21.9 Gastro-esophageal reflux disease without esophagitis; R10.32 Left lower quadrant pain | CPT/HCPCS: 99212 ==

== ENCOUNTER 2022-11-22 08:32 | Outpatient (AMB) | payer MEDICAID, SELFPAY ==
--- NOTE | 2022-11-22 08:44 | MHC.OFFVIS ---
Intake Vital Signs 11/22/22 08:45 Height 5 ft 4 in Weight 163 lb 2.273 oz BMI 28.0 BP 128/82 Blood Pressure Location Rt brachial Position Sitting Pulse 75 Intake Visit Reasons: Diarrhea / Diverticulitis Intake Note: Kacy presents in the office today in follow up of diarrhea and diverticulosis. CC: Patient c/o diarrhea, LLQ abdominal pain, epigastric pain, and vomiting. She also reports bleeding from hemorrhoids. Chief Of Safety And Protection Required: Yes Accompanied by: Self / Same As Patient Allergies Penicillins [PENICILLINS] Allergy (Intermediate, Verified 11/22/22 08:47) HIVES/SWELLING bupropion [From Wellbutrin] Allergy (Verified 11/22/22 08:47) hives, swelling HPI HPI Comments History of Present Illness Details This is a 57-year-old female with past medical history of diverticular disease with multiple episodes of acute diverticulitis in the past who is being seen today for second opinion on abd pain and diarrhea. Seen with the help of trade sales assistant. Pt reports having left sided abdominal cramping with fluctuating bowel habits for a few years now. Initially used to have trouble moving her bowels however for the past couple of years has moved towards diarrhea spectrum. Reports bouts of left lower cramping with urge to evacuate stool ranges from mushy to liquidy and with mucus. No blood in stool but does note on wiping occasionally. Cramping does not always get better with defecation. Has had mutliple ER and hospital admissions for this and imaging consistently shows sigmoid luminal narrowing/wall thickening without overt signs of inflammation such as fat stranding or lymphadenopathy. More recently also diagnosed with recurrent C diff infections in August and then Sep but as has previously been documented this was with a NEGATIVE toxin i.e favors colonization rather than true infection. Pt also does not report significant improvement with PO vanc or dificid. Most recent colo in May 2022 without any evidence of inflammatory colitis, microscopic colitis or SCAD. Moderate sigmoid diverticulosis noted with luminal narrowing. FORMERLY [facility], [facility] Medical History Left lower quadrant pain Tubular adenoma of colon Irritable bowel syndrome with diarrhea Sigmoid diverticulitis Acute diverticulitis Diarrhea Diverticulitis Abdominal pain GERD (gastroesophageal reflux disease) Chronic idiopathic constipation Constipation Surgical History History of intestinal surgery History of partial hysterectomy (~09/2006) Hx of hemorrhoidectomy Hx of colonoscopy History of esophagogastroduodenoscopy (EGD) Family History Father Cancer HTN (hypertension) Mother HTN (hypertension) Hyperthyroidism Migraine headache Maternal Grandmother History of breast cancer Paternal Grandmother History of breast cancer Family/Other Colon cancer Paternal Aunt Ovarian cancer Social History Household Members: None Housing: Apartment Do you presently have visiting nurse or other home services: No Alcohol intake: never Patient Tobacco Use Status: Never used Tobacco service: No Current occupational status: disabled Female Reproductive History Menstrual Age of Menarche: 7 Review of Systems Const All systems reviewed & are unremarkable except as noted in HPI and below Physical Exam Vital Signs: Last Vital Signs Pulse 75 11/22/22 08:45 BP 128/82 11/22/22 08:45 BMI result Body Mass Index 28.0 Gen appear: NAD HEENT: nonicteric, no cervical lymphadenopathy Chest: CTA CVS: Regular S1/S2 Abd: soft, tender in suprapubic region and LLQ, nondistended, bowel sounds + Ext: no peripheral edema Neuro: A/Ox3, noted to move all extremities spontaneously Psych: interacting appropriately Assessment & Plan Assessment & Plan (1) Diverticular disease of colon: Code(s): K57.30 - Diverticulosis of large intestine without perforation or abscess without bleeding (2) Irritable bowel syndrome with diarrhea: Code(s): K58.0 - Irritable bowel syndrome with diarrhea (3) LLQ cramping: Code(s): R10.32 - Left lower quadrant pain Plan Overall sx consistent with symptomatic uncomplicated diverticular disease vs IBS-D. Reviewed extensively with the pt that most of hte times difficult to distinguish between the two entities clinically however since she has not responded well to IBS-D therapies, can consider trial of mesalamine enema for likely SUDD. Ultimately, if medical therapy does not improve sx and quality of life remains low, agree with surgical consultation for sigmoidectomy. Plan: - Start mesalamine enema 4g at bedtime x 2 weeks - If sx improve, to be utilised as needed - If no response, next step would be to consider cycling between Rifaximin and PO mesalamine per week per month (i.e Rifaximin 550 TID x week/month followed by mesalamine 2400mg/day x week the next month and then repeating Rifaximin for a week the third month etc). - If no to minimal response to either of these approaches, would refer back to surgery for surgical management of symptomatic diverticular disease. - She was also again reinforced the importance of incorporating fiber at least 20-25g/day - Limit red meat, etOH and NSAID use. Follow up in 4 weeks with Daiana Pastor MALT SPECIFICATIONS CONTROL ASSISTANT for sx review and further management. Medications: New mesalamine 4 grams (60 mL) [place] BEDTIME 4 weeks 1,680 mL 0RF Coding Level of Care Code Est Pt Level 4 (72729) Diagnoses Diverticular disease of colon K57.30 Irritable bowel syndrome with diarrhea K58.0 LLQ cramping R10.32
[2022-11-22 08:45] VITALS: BP 128/82; PULSE 75; BMI 28.0
== END 2022-11-22 10:17 | disposition home or self-care (01) ==
PROVIDERS: PCP Internal Medicine; Visit Provider Internal Medicine
DX: K57.30 Diverticulosis of large intestine without perforation or abscess without bleeding (principal); K58.0 Irritable bowel syndrome with diarrhea; R10.32 Left lower quadrant pain
CPT/HCPCS: 99214

== ENCOUNTER → 2022-11-22 08:32 | Outpatient (BNVA) | payer MEDICAID, SELFPAY | PROVIDERS: PCP Internal Medicine; Visit Provider Internal Medicine | DX: K57.30 Diverticulosis of large intestine without perforation or abscess without bleeding (principal); K58.0 Irritable bowel syndrome with diarrhea; R10.32 Left lower quadrant pain | CPT/HCPCS: 99212 ==

== ENCOUNTER 2022-12-09 16:09 | Observation (INO) | payer MEDICAID, SELFPAY ==
--- NOTE | ~2022-12-09 | CT_ITS ---
EXAMINATION: CT ABDOMEN AND PELVIS WITHOUT CONTRAST CLINICAL INFORMATION: Left lower quadrant pain. History of ulcerative colitis. COMPARISON: CT scan abdomen pelvis September 21, 2022 TECHNIQUE: Multidetector volumetric imaging was performed from the superior aspect of the liver through the pubic symphysis. Sagittal and coronal reformatted images were obtained on the technologist's workstation. This CT examination was performed using dose optimization techniques as appropriate, variously including the following: *Automated exposure control *Adjustment of mA and/or kV according to patient size (this includes techniques or standardized protocols for targeted exams where dose is matched to indication/reason for exam; i.e. extremities or head) *Use of iterative reconstruction technique DLP: 602 mGy-cm FINDINGS: LUNG BASES: The visualized lung bases are unremarkable. LIVER, GALLBLADDER, AND BILIARY TREE: The liver is normal in size, shape, and attenuation. No focal hepatic lesion or biliary ductal dilatation is present. The gallbladder is unremarkable with no evidence of radiopaque gallstones, gallbladder wall thickening, or obvious pericholecystic inflammatory changes. PANCREAS: Unremarkable. SPLEEN: Unremarkable. ADRENAL GLANDS: Unremarkable. KIDNEYS AND URETERS: The kidneys are normal in size, shape, and attenuation. No hydronephrosis, hydroureter, or calculi seen. No perinephric stranding. Stable 1.3 cm simple cyst midpole left kidney. No follow-up imaging is recommended for simple renal cyst.. BLADDER: Unremarkable. GASTROINTESTINAL TRACT: No acute changes of bowel.. The previously seen mural wall thickening of the descending colon on CAT scan September 21, 2022 has resolved. There are a few diverticula of the sigmoid colon but no evidence of diverticulitis. The appendix is normal. Small bowel loops and stomach are unremarkable. MESENTERY: No inflammation the mesentery. No free air or free fluid. There are a few shotty subcentimeter lymph nodes in the right lower quadrant but no bulky lymphadenopathy. ABDOMINAL WALL: No significant hernia is appreciated. LYMPH NODES: Normal. VASCULAR: Unremarkable. PELVIC VISCERA: Unremarkable. OSSEOUS STRUCTURES: Unremarkable. CT/CT abdomen pelvis wo IV con IMPRESSION: No acute abnormality CT scan abdomen pelvis. The previously seen mural wall thickening of the descending colon on CAT scan September 21, 2022 has resolved. There are a few diverticula of the sigmoid colon but no evidence of diverticulitis. Fleischner guidelines were followed.
[2022-12-09 16:14] VITALS: BP 156/88; PULSE 81; RESP 18; TEMP 36.4; O2SAT 100; BMI 28.4
--- NOTE | 2022-12-09 16:14 | ED_ITS ---
HPI - General Adult General Chief complaint: Abdominal Pain Stated complaint: Abdominal pain Time Seen by Provider: 12/09/22 16:58 Source: patient Mode of arrival: ambulatory Limitations: no limitations History of Present Illness HPI narrative: Patient comes to the emergency room complaining of left lower quadrant pain. Patient states that she has been having abdominal pain for approximately 2 days but significantly worsen over the last 3-4 hours. Patient has history of ulcerative colitis. Patient states that she is being followed by Gastroenterology, patient was asked to medicate herself with mesalamine enemas. Patient states that she has been using them as prescribed. However, patient has no improvement. Patient states that she is aware that her ulcerative colitis is getting worse and she may need a colectomy, which has been discussed with her with her laborer high density press. Patient denies nausea or vomiting. Patient complaining of diarrhea, patient states that she is not sure if she has seen blood in the stool. Patient denies fever chills, no UTI symptoms Related Data Home Medications Medication Instructions Recorded Confirmed galcanezumab-gnlm 120 mg/mL 120 mg subcut Q4W 11/25/21 08/14/22 subcutaneous pen injector (Emgality Pen) lisinopril 20 mg tablet 20 mg PO DAILY 11/25/21 08/14/22 metoprolol tartrate 25 mg tablet 25 mg PO BID 11/25/21 08/14/22 nortriptyline 50 mg capsule 100 mg PO QPM 11/25/21 08/14/22 sumatriptan succinate 100 mg tablet 100 mg PO DAILY MRX1 migraine 11/25/21 08/14/22 zolpidem 12.5 mg tablet,extended 12.5 mg PO BEDTIME PRN Insomnia 11/25/21 08/14/22 release,multiphase aripiprazole 15 mg tablet 15 mg PO QAM 03/31/22 08/14/22 buspirone 15 mg tablet 15 mg PO BID 07/14/22 08/14/22 cholecalciferol (vitamin D3) 25 25 mcg PO QAM 09/20/22 mcg (1,000 unit) tablet nabumetone 750 mg tablet 750 mg PO BID PRN 10/24/22 Previous Rx's Medication Instructions Recorded ondansetron 4 mg disintegrating 4 mg PO TID PRN nausea and 02/28/22 tablet vomiting 5 days #30 tabs alosetron 0.5 mg tablet (Lotronex) 1 mg (2 x 0.5 mg) PO BID #60 tabs 07/14/22 loperamide 2 mg capsule 2 mg PO Q6H PRN Diarrhea #20 caps 08/20/22 pantoprazole 40 mg tablet,delayed 40 mg PO DAILY #90 tabs 08/22/22 release budesonide 3 mg 9 mg (3 x 3 mg) PO DAILY 30 days 10/24/22 capsule,delayed,extended release #90 ea mesalamine 4 gram/60 mL enema 4 g (60 mL) SC BEDTIME 4 weeks 11/22/22 #1,680 mL dicyclomine 20 mg tablet 40 mg (2 x 20 mg) PO QID 30 days 11/29/22 #240 tabs Allergies Allergy/AdvReac Type Severity Reaction Status Date / Time Penicillins [PENICILLINS] Allergy Intermediate HIVES/SWELL Verified 12/09/22 16:14 ING bupropion [From Wellbutrin] Allergy hives, Verified 12/09/22 16:14 swelling Review of Systems 2 Review of Systems: Constitutional : No Weight loss, No Fever, No Chills, No Night Sweats, No Fatigue, No Malaise ENT/Mouth : No Hearing loss, No Ear Pain, No Nasal Congestion, No Sinus Pain, No Hoarseness, No sore throat, No Rhinorrhea, No Swallowing Difficulty Eyes: No Eye Pain, No Swelling, No Redness, No Foreign Body, No Discharge, No Vision Changes Cardiovascular : No Chest Pain, No SOB, No Dyspnea on Exertion, No Orthopnea, No Edema, No Palpitations Respiratory : No Cough, No Sputum, No Wheezing, No Smoke Exposure, No Dyspnea Gastrointestinal : No Nausea, No Vomiting, complaining of diarrhea, complaining of intense left lower quadrant pain Genitourinary : no irregular bleeding, No Dysuria, No Urinary Frequency, No Hematuria, No Urinary Incontinence, No Urgency, No Flank Pain, No Urinary Flow Changes, No Hesitancy Musculoskeletal : No joint pain, No Myalgias, No Joint Swelling Skin : No Skin Lesions, No rash Neuro : No Weakness, No Numbness, No Paresthesias, No Loss of Consciousness, No Dizziness, No Headache Psych : No Anxiety/Panic, No Depression, No SI/HI/AH/VH, No Social Issues, Heme/Lymph: No Bruising, No Bleeding,No Lymphadenopathy Endocrine : No Polyuria, No Polydipsia, No Temperature Intolerance [facility] Past Medical History Medical History Left lower quadrant pain Tubular adenoma of colon Irritable bowel syndrome with diarrhea Sigmoid diverticulitis Acute diverticulitis Diarrhea Diverticulitis Abdominal pain GERD (gastroesophageal reflux disease) Chronic idiopathic constipation Constipation Surgical History History of intestinal surgery History of partial hysterectomy (~09/2006) Hx of hemorrhoidectomy Hx of colonoscopy History of esophagogastroduodenoscopy (EGD) Family History Family History Father Cancer HTN (hypertension) Mother HTN (hypertension) Hyperthyroidism Migraine headache Maternal Grandmother History of breast cancer Paternal Grandmother History of breast cancer Family/Other Colon cancer Paternal Aunt Ovarian cancer Social History Social History Household Members: None Housing: Apartment Do you presently have visiting nurse or other home services: No Alcohol intake: never Patient Tobacco Use Status: Never used Tobacco Smoked in Last 30 Days: No Use of substances other than those prescribed or required for medical reasons: No Advance Directives: No Advance Directives Information Provided: No service: No Current occupational status: disabled Physical Exam ED Vital Signs: Vital Signs - 24 hr 12/09/22 16:14 12/09/22 18:00 12/09/22 18:19 Temperature 97.5 F Pulse Rate 81 70 72 Respiratory Rate 18 16 14 Blood Pressure 156/88 H 151/72 H Pulse Oximetry 100 98 100 Oxygen Delivery Method Room Air Room Air Room Air 12/09/22 20:02 Temperature Pulse Rate Respiratory Rate 20 Blood Pressure Pulse Oximetry Oxygen Delivery Method BMI result Body Mass Index 28.4 Const Other: Appearance: Alert. Oriented X3. Patient looks very uncomfortable Eyes: Pupils equal, round and reactive to light. ENT: Pharynx normal. Neck: Normal inspection. Neck supple. No lymph nodes noted. No crepitus CVS: Normal heart rate and rhythm. Pulses normal. Normal S1 and S2 Respiratory: No respiratory distress. Breath sounds normal. No Wheezing. No rales Abdomen: Soft , tenderness to palpation in left lower quadrant, mild guarding, no rebound Skin: Skin warm and dry. Normal skin color. Normal skin turgor. Extremities: No lower extremity edema. No Lacerations. No Rash Neuro: Oriented X 3. No motor deficit. No sensory deficit. Moving all extremities. No slurred speech. CN 2 through 12 grossly intact Psych: calm, cooperative, normal affect Course Course Course Narrative: Patient complains of left lower quadrant pain worsening over past several hours, she has been vomiting frequently for quite some time but the left lower quadrant pain is new and different today She has a history of diverticulitis and was admitted for this some months ago, she is followed by gastroenterology for diverticulitis and IBS Labs ordered This is rapid medical exam in triage pending full evaluation by ER provider for history and physical evaluation of all results and disposition Medications Administered Discontinued Medications Generic Name Dose Route Start Last Admin Trade Name Freq PRN Reason Stop Dose Admin Hydromorphone HCl 0.5 mg 12/09/22 17:14 12/09/22 17:33 Hydromorphone Hcl 0.5 Mg/0.5 Ml Syringe IVPUSH 12/09/22 17:15 0.5 mg ONCE ONE Administration Protocol Hydromorphone HCl 1 mg 12/09/22 17:59 12/09/22 18:03 Hydromorphone Hcl 1 Mg/Ml Syringe IVPUSH 12/09/22 18:00 1 mg ONCE ONE Administration Protocol Hydromorphone HCl 1 mg 12/09/22 19:55 12/09/22 20:02 Hydromorphone Hcl 1 Mg/Ml Syringe IVPUSH 12/09/22 19:56 1 mg ONCE ONE Administration Protocol Sodium Chloride 1,000 mls @ 999 mls/hr 12/09/22 17:14 12/09/22 18:34 Ns IVCONT 12/09/22 18:14 Infused .Q1H1M ONE Infusion Medical Decision Making Medical Decision Making [facility] Narrative: -my interpretation of labs: Normal hematology, at baseline, normal white blood cell count. Normal chemistry. -patient receiving IV fluids, Dilaudid. -CT scan pending -my interpretation of CT scan, no obvious abnormality, no obstruction -interpretation of labs, hematology and chemistry at baseline, ESR and CRP are not elevated. -patient has required multiple doses of Dilaudid but no significant pain relief. Patient being admitted for observation and pain management. -patient has an appointment pending in mid December with Gastroenterology and with surgery, as patient may need a colectomy -I discussed the patient with Dr. Resendiz, patient being admitted Differential Diagnosis Differential Diagnoses: The differential diagnosis associated with the presentation includes (Ulcerative colitis, diverticulitis, abscess, phlegmon) Admission/Observation Consideration of admission/observation: Escalation of care including admission/observation considered Consult Healthcare Provider Management of the patient was discussed with: Hospitalist Lab Data MDM Lab Attestation statement: I reviewed the patient's lab results. 12/09/22 16:34 12/09/22 16:34 Labs: Lab Results 12/09/22 12/09/22 12/09/22 Range/Units 16:34 16:39 18:05 WBC 8.4 (4.8-10.8) X10*3/uL RBC 4.92 (4.20-5.50) X10*6/uL Hgb 13.1 (12.0-16.0) g/dl Hct 42.0 (37.0-47.0) % MCV 85.4 (80.0-98.0) fL MCH 26.6 L (27.0-33.0) pg MCHC 31.2 (31.0-35.0) g/dl RDW 14.1 (11.0-16.0) % Plt Count 340 (160-400) X10*3/uL MPV 9.4 (9.4-12.3) fL Immature Gran % (Auto) 0.2 (0.0-0.4) % Neut % (Auto) 48.4 (45-73) % Lymph % (Auto) 42.7 H (20-40) % [place] % (Auto) 6.8 (2-11) % Eos % (Auto) 1.4 (0-4) % Baso % (Auto) 0.5 (0-2) % Lymph # (Auto) 3.6 (1.2-4.9) X10*3/uL [place] # (Auto) 0.6 (0.1-1.2) X10*3/uL Eos # (Auto) 0.1 (0.0-0.4) X10*3/uL Baso # (Auto) 0.0 (0.0-0.2) X10*3/uL Abs Immat Gran (auto) 0.02 (0.00-0.03) X10*3/uL Absolute Neuts (auto) 4.1 (2.0-8.3) x10*3/uL Absolute Nucleated RBC 0.000 (0.0-0.012) X10*3/uL Nucleated RBC % (auto) 0.0 (0.0-0.2) /100WBC ESR 12 (0-20) MM/HR Sodium 142 (135-145) mmol/L Potassium 3.9 (3.3-5.1) mmol/L Chloride 103 (96-108) mmol/L Carbon Dioxide 29 (22-29) mmol/L Anion Gap 14 (12-20) BUN 11 (9-16) mg/dL Creatinine 1.07 (0.5-1.4) mg/dL Estim Creat Clear Calc 56.8 Estimated GFR 53 Random Glucose 100 (60-115) mg/dL Lactic Acid (0.5-2.0) mmol/L Calcium 9.8 (8.4-10.2) mg/dL Total Bilirubin 0.2 (0.0-1.0) mg/dL Direct Bilirubin < 0.2 (0.0-0.5) mg/dL AST 18 (5-31) U/L ALT 15 (0-31) U/L Alkaline Phosphatase 77 (39-117) U/L C-Reactive Protein 0.16 (< or = 0.50) mg/dL Total Protein 7.7 (6.5-8.0) g/dL Albumin 4.3 (3.5-5.0) g/dL Lipase 22 (8-78) U/L Urine Color Yellow Urine Appearance Hazy Urine pH 5.5 (5.0-9.0) Ur Specific [place] >= 1.030 H (1.005-1.025) Urine Protein 30 (1+) H (Neg-Trace) mg/dL Urine Glucose (UA) Negative (Negative) mg/dL Urine Ketones Negative (Negative) mg/dL Urine Blood Large (3+) H (Negative) Urine Nitrite Negative (Negative) Ur Leukocyte Esterase Negative (Negative) Urine RBC >20 H (0-2) /HPF Urine WBC 6-10 H (0-5) /HPF Ur Squamous Epith Cells 11-20 (0-2) /HPF Calcium Oxalate Crystal Present Urine Bacteria 2+ (None Seen) Hyaline Casts 3-5 (0-2) /LPF Stool Occult Blood NEGATIVE (NEGATIVE) 12/09/22 Range/Units 18:31 WBC (4.8-10.8) X10*3/uL RBC (4.20-5.50) X10*6/uL Hgb (12.0-16.0) g/dl Hct (37.0-47.0) % MCV (80.0-98.0) fL MCH (27.0-33.0) pg MCHC (31.0-35.0) g/dl RDW (11.0-16.0) % Plt Count (160-400) X10*3/uL MPV (9.4-12.3) fL Immature Gran % (Auto) (0.0-0.4) % Neut % (Auto) (45-73) % Lymph % (Auto) (20-40) % [place] % (Auto) (2-11) % Eos % (Auto) (0-4) % Baso % (Auto) (0-2) % Lymph # (Auto) (1.2-4.9) X10*3/uL [place] # (Auto) (0.1-1.2) X10*3/uL Eos # (Auto) (0.0-0.4) X10*3/uL Baso # (Auto) (0.0-0.2) X10*3/uL Abs Immat Gran (auto) (0.00-0.03) X10*3/uL Absolute Neuts (auto) (2.0-8.3) x10*3/uL Absolute Nucleated RBC (0.0-0.012) X10*3/uL Nucleated RBC % (auto) (0.0-0.2) /100WBC ESR (0-20) MM/HR Sodium (135-145) mmol/L Potassium (3.3-5.1) mmol/L Chloride (96-108) mmol/L Carbon Dioxide (22-29) mmol/L Anion Gap (12-20) BUN (9-16) mg/dL Creatinine (0.5-1.4) mg/dL Estim Creat Clear Calc Estimated GFR Random Glucose (60-115) mg/dL Lactic Acid 2.0 (0.5-2.0) mmol/L Calcium (8.4-10.2) mg/dL Total Bilirubin (0.0-1.0) mg/dL Direct Bilirubin (0.0-0.5) mg/dL AST (5-31) U/L ALT (0-31) U/L Alkaline Phosphatase (39-117) U/L C-Reactive Protein (< or = 0.50) mg/dL Total Protein (6.5-8.0) g/dL Albumin (3.5-5.0) g/dL Lipase (8-78) U/L Urine Color Urine Appearance Urine pH (5.0-9.0) Ur Specific [place] (1.005-1.025) Urine Protein (Neg-Trace) mg/dL Urine Glucose (UA) (Negative) mg/dL Urine Ketones (Negative) mg/dL Urine Blood (Negative) Urine Nitrite (Negative) Ur Leukocyte Esterase (Negative) Urine RBC (0-2) /HPF Urine WBC (0-5) /HPF Ur Squamous Epith Cells (0-2) /HPF Calcium Oxalate Crystal Urine Bacteria (None Seen) Hyaline Casts (0-2) /LPF Stool Occult Blood (NEGATIVE) Independent Interpretation I performed an independent interpretation of an: CT Scan Radiology Impression Discussion of test interpretation with radiology: I have reviewed the radiologist's reading. Radiologist Impression: FINDINGS: LUNG BASES: The visualized lung bases are unremarkable. LIVER, GALLBLADDER, AND BILIARY TREE: The liver is normal in size, shape, and attenuation. No focal hepatic lesion or biliary ductal dilatation is present. The gallbladder is unremarkable with no evidence of radiopaque gallstones, gallbladder wall thickening, or obvious pericholecystic inflammatory changes. PANCREAS: Unremarkable. SPLEEN: Unremarkable. ADRENAL GLANDS: Unremarkable. KIDNEYS AND URETERS: The kidneys are normal in size, shape, and attenuation. No hydronephrosis, hydroureter, or calculi seen. No perinephric stranding. Stable 1.3 cm simple cyst midpole left kidney. No follow-up imaging is recommended for simple renal cyst.. BLADDER: Unremarkable. GASTROINTESTINAL TRACT: No acute changes of bowel.. The previously seen mural wall thickening of the descending colon on CAT scan September 21, 2022 has resolved. There are a few diverticula of the sigmoid colon but no evidence of diverticulitis. The appendix is normal. Small bowel loops and stomach are unremarkable. MESENTERY: No inflammation the mesentery. No free air or free fluid. There are a few shotty subcentimeter lymph nodes in the right lower quadrant but no bulky lymphadenopathy. ABDOMINAL WALL: No significant hernia is appreciated. LYMPH NODES: Normal. VASCULAR: Unremarkable. PELVIC VISCERA: Unremarkable. OSSEOUS STRUCTURES: Unremarkable. CT/CT abdomen pelvis wo IV con IMPRESSION: No acute abnormality CT scan abdomen pelvis. The previously seen mural wall thickening of the descending colon on CAT scan September 21, 2022 has resolved. There are a few diverticula of the sigmoid colon but no evidence of diverticulitis. External Record Review External record reviewed: Prior outpatient labs Chronic Conditions Patient?s care impacted by: Other (Ulcerative colitis) Critical Care Time Critical Care Time Critical Care Time: Yes Total Critical Care Time: 60 Attestation: I have personally provided critical care time. Time includes review of lab data, radiology results, discussion with consultants, and monitoring for potential decompensation. Intervention performed as documented. Discharge Plan Discharge Clinical Impression: Lower abdominal pain Patient Disposition: Admitted As Inpatient
[2022-12-09 16:42] LABS: MANUAL DIFF FLAG NO
[2022-12-09 16:43] LABS: Basophils Percent Auto 0.5 % (0-2); Eosinophils Absolute Auto 0.1 X10*3/uL (0.0-0.4); Eosinophils Percent Auto 1.4 % (0-4); Hemoglobin 13.1 g/dl (12.0-16.0); Imm Gran Abs Auto 0.02 X10*3/uL (0.00-0.03); Imm Gran Pct Auto 0.2 % (0.0-0.4); Lymphocytes Absolute Auto 3.6 X10*3/uL (1.2-4.9); Lymphocytes Percent Auto 42.7 % (20-40); Mean Corpuscular HGB Conc 31.2 g/dl (31.0-35.0); Mean Corpuscular Hemoglobin 26.6 pg (27.0-33.0); Mean Corpuscular Volume 85.4 fL (80.0-98.0); Mean Platelet Volume 9.4 fL (9.4-12.3); Monocytes Absolute Auto 0.6 X10*3/uL (0.1-1.2); Monocytes Percent Auto 6.8 % (2-11); Neutrophils Absolute Auto 4.1 x10*3/uL (2.0-8.3); Neutrophils Percent Auto 48.4 % (45-73); Platelet Count 340 X10*3/uL (160-400); Red Blood Count 4.92 X10*6/uL (4.20-5.50); Red Cell Distribution Width 14.1 % (11.0-16.0); White Blood Count 8.4 X10*3/uL (4.8-10.8)
[2022-12-09 16:44] LABS: Appearance Urine Hazy; Color Urine Yellow; Glucose Urine UA Negative (Negative); Leukocyte Esterase Urine Negative (Negative); Nitrite Urine Negative (Negative); PH 5.5 (5.0-9.0); Specific Gravity - Urine >= 1.030 (1.005-1.025); UMIC TRIGGER UACC YES; Urine Blood Large (3+) (Negative); Urine Ketones Negative (Negative); Urine Protein 30 (1+) mg/dL (Neg-Trace)
[2022-12-09 17:00] LABS: Alanine Aminotransferase 15 U/L (0-31); Albumin Level 4.3 g/dL (3.5-5.0); Alkaline Phosphatase 77 U/L (39-117); Anion Gap 14 (12-20); Aspartate Amino Transferase 18 U/L (5-31); Bilirubin Direct < 0.2 mg/dL (0.0-0.5); Bilirubin Total 0.2 mg/dL (0.0-1.0); Blood Urea Nitrogen 11 mg/dL (9-16); Calcium 9.8 mg/dL (8.4-10.2); Carbon Dioxide 29 mmol/L (22-29); Chloride 103 mmol/L (96-108); Creatinine Clr Calc Pharmacy 56.8; Estimated Glomerular Filt Rate 53; Glucose Random 100 mg/dL (60-115); Lipase 22 U/L (8-78); Potassium 3.9 mmol/L (3.3-5.1); Sodium 142 mmol/L (135-145); Total Protein 7.7 g/dL (6.5-8.0)
[2022-12-09 17:08] LABS: Bacteria Urine 2+ (None Seen); Calcium Oxalate Crystals Urine Present; RBC Urine >20 /HPF (0-2); UACC Culture Trigger YES
[2022-12-09] MEDS: HYDROmorphone HCl 0.5 MG/0.5 ML SYRINGE IVPUSH (17:33)
[2022-12-09] MEDS: 0.9 % Sodium Chloride 1,000 ML 999 ML IVCONT (17:33)
[2022-12-09 18:00] VITALS: BP 151/72; PULSE 70; RESP 16; O2SAT 98
[2022-12-09] MEDS: HYDROmorphone HCl 1 MG/ML SYRINGE IVPUSH ×2 (18:03→20:02)
[2022-12-09 18:14] LABS: OBS Int Ctl Valid YES
[2022-12-09 18:15] LABS: OBS1 NEGATIVE (NEGATIVE)
[2022-12-09 18:19] VITALS: PULSE 72; RESP 14; O2SAT 100
[2022-12-09 19:08] LABS: C Reactive Protein 0.16 mg/dL (< or = 0.50)
--- NOTE | 2022-12-09 19:28 | PC.NURSE ---
care assumed of patient at this time; pt still reporting abdominal pain. states that the dilaudid was minimally effective.
[2022-12-09 19:38] LABS: Erythrocyte Sedimentation Rate 12 MM/HR (0-20)
[2022-12-09 20:02] VITALS: RESP 20
--- NOTE | 2022-12-09 20:24 | P.HPHOSP_ITS ---
History of Present Illness Date of Service: 12/09/22 Attending physician on admission: Buzz Resedniz Chief Complaint: LLQ abdominal pain x 1 day Patient is a 57 year with history of IBS with diarrhea, colitis, GERD, sigmoid diverticulitis, migraines headaches who presents from home accompanied by her sister and granddaughter who presents to the emergency room from home complaining of LLQ abdominal pain since around 11 am this ,morning shortly after eating a sandwich for breakfast. Pain was preceded by several episodes of non- projectile non-bloody emesis. No associated diarrhea, fevers or chills. She also reports an episode of blood urine but denies any flank pain and has no history of nephrolithiasis. She tried to wait it out for 2 hours but was not getting any better and so presented to the emergency room where initial work up was unrevealing except for urinalysis that showed hematuria. She has required several doses of IV hydromorphone with only modest relief in her symptoms. Admission was requested for pain control. Review of Systems 2 Review of Systems: 12 system review was completed and is as noted in the HPI otherwise the rest of the system review was normal. [facility] Medical History Left lower quadrant pain Tubular adenoma of colon Irritable bowel syndrome with diarrhea Sigmoid diverticulitis Acute diverticulitis Diarrhea Diverticulitis Abdominal pain GERD (gastroesophageal reflux disease) Chronic idiopathic constipation Constipation Family History Father Cancer HTN (hypertension) Mother HTN (hypertension) Hyperthyroidism Migraine headache Maternal Grandmother History of breast cancer Paternal Grandmother History of breast cancer Family/Other Colon cancer Paternal Aunt Ovarian cancer Surgical History History of intestinal surgery History of partial hysterectomy (~09/2006) Hx of hemorrhoidectomy Hx of colonoscopy History of esophagogastroduodenoscopy (EGD) Social History Household Members: None Housing: Apartment Do you presently have visiting nurse or other home services: No Alcohol intake: never Patient Tobacco Use Status: Never used Tobacco Smoked in Last 30 Days: No Use of substances other than those prescribed or required for medical reasons: No Advance Directives: No Advance Directives Information Provided: No service: No Current occupational status: disabled Meds Allergies Allergy/AdvReac Type Severity Reaction Status Date / Time Penicillins [PENICILLINS] Allergy Intermediate HIVES/SWELL Verified 12/09/22 16:14 ING bupropion [From Wellbutrin] Allergy hives, Verified 12/09/22 16:14 swelling Home Medications Medication Instructions Recorded Confirmed Last Taken Type galcanezumab-gnlm 120 mg/mL 120 mg subcut Q4W 11/25/21 08/14/22 12/21/21 History subcutaneous pen injector (Emgality Pen) lisinopril 20 mg tablet 20 mg PO DAILY 11/25/21 08/14/22 01/10/22 History metoprolol tartrate 25 mg tablet 25 mg PO BID 11/25/21 08/14/22 01/10/22 History nortriptyline 50 mg capsule 100 mg PO QPM 11/25/21 08/14/22 01/10/22 History sumatriptan succinate 100 mg tablet 100 mg PO DAILY MRX1 migraine 11/25/21 08/14/22 01/11/22 History zolpidem 12.5 mg tablet,extended 12.5 mg PO BEDTIME PRN Insomnia 11/25/21 08/14/22 Unknown History release,multiphase aripiprazole 15 mg tablet 15 mg PO QAM 03/31/22 08/14/22 Unknown History buspirone 15 mg tablet 15 mg PO BID 07/14/22 08/14/22 Unknown History cholecalciferol (vitamin D3) 25 25 mcg PO QAM 09/20/22 Unknown History mcg (1,000 unit) tablet nabumetone 750 mg tablet 750 mg PO BID PRN 10/24/22 Unknown History Physical Exam 2 Vital Signs and Narrative: Vital Signs: Last Vital Signs Temp 97.5 F 12/09/22 16:14 Pulse 72 12/09/22 18:19 Resp 20 12/09/22 20:02 BP 151/72 H 12/09/22 18:00 Pulse Ox 100 12/09/22 18:19 O2 Del Method Room Air 12/09/22 18:19 BMI result Body Mass Index 28.4 Constitutional - Awake and Alert, No apparent distress Eyes - No pallor or jaundice. PERRLA, EOMI Neck: Supple. No cervical adenopathy. No JVD Cardiovascular - Regular rate and rhythm. Normal heart sounds. No murmurs, rubs or gallops. No JVD. No peripheral edema. Respiratory - Normal lung expansion, Normal respiratory effort, No respiratory distress, CTA bilaterally Gastrointestinal - Abdomen is flabby, soft, with mild LLQ discomfort on deep palpation. Non-distended. Normal bowel sounds in all 4 quadrants. No hepatosplenomegally Extremities - no calf tenderness bilaterally, no swelling Skin - Warm/Dry. No rashes. No motling. Capillary refill is < 2 seconds Neurological - AAOx4. Intact speech & cognition. Normal gait & balance. CN II - XII grossly normal. No motor or sensory deficits Hematologic: No bleeding. No ecchymosis. No swollen or tender lymph nodes. Psychological - Appropriate affect Results Labs 12/09/22 16:34 12/09/22 16:34 Imaging Radiologist's Impressions: Impressions Abdomen/Pelvis CT 12/09/22 17:30 IMPRESSION: No acute abnormality CT scan abdomen pelvis. The previously seen mural wall thickening of the descending colon on CAT scan September 21, 2022 has resolved. There are a few diverticula of the sigmoid colon but no evidence of diverticulitis. Fleischner guidelines were followed. Assessment and Plan (1) Lower abdominal pain: Status: Acute (2) Hematuria: Qualifiers: Hematuria type: gross Qualified Code(s): R31.0 - Gross hematuria Status: Acute Plan 1. LLQ abdominal pain - unclear etiology but could be related to the hematuria - Abdominal CT was unrevealing - will admit for pain control 2. Hematyuria - she reports an isolated episode of gross hematuria - UA with > 20 RBC/hpf - monitor CODE STATUS: FULL DVT: Low risk. Encourage ambulation Quality Stroke Does the patient have a stroke diagnosis?: No VTE Prior VTE?: No VTE Risk Level:: Medical - low VTE Device Contraindication: Treatment Not Indicated VTE Drug Contraindication: Treatment Not Indicated
[2022-12-10 01:02] VITALS: BP 122/62; PULSE 60; RESP 18; TEMP 36.4; O2SAT 99
--- NOTE | 2022-12-10 01:05 | PC.NURSE ---
report called to [facility] RN
[2022-12-10 01:42] VITALS: BMI 28.9
[2022-12-10] MEDS: HYDROmorphone HCl 0.5 MG/0.5 ML SYRINGE IVPUSH ×2 (02:01→10:43)
[2022-12-10 07:06] VITALS: BP 146/68; PULSE 64; RESP 17; TEMP 36; O2SAT 97
[2022-12-10 07:19] LABS: Hematocrit 34.6 % (37.0-47.0); Hemoglobin 10.9 g/dl (12.0-16.0); Mean Corpuscular HGB Conc 31.5 g/dl (31.0-35.0); Mean Corpuscular Volume 85.9 fL (80.0-98.0); Mean Platelet Volume 9.8 fL (9.4-12.3); Platelet Count 280 X10*3/uL (160-400); Red Blood Count 4.03 X10*6/uL (4.20-5.50); Red Cell Distribution Width 14.1 % (11.0-16.0)
[2022-12-10 07:47] LABS: Anion Gap 11 (12-20); Blood Urea Nitrogen 10 mg/dL (9-16); Calcium 8.8 mg/dL (8.4-10.2); Carbon Dioxide 29 mmol/L (22-29); Chloride 105 mmol/L (96-108); Creatinine Clr Calc Pharmacy 81.7; Estimated Glomerular Filt Rate > 60; Glucose Random 86 mg/dL (60-115); Potassium 3.7 mmol/L (3.3-5.1); Sodium 141 mmol/L (135-145)
--- NOTE | 2022-12-10 08:33 | PHA.MEDREC ---
Pharmacy Consult ? Medication Reconciliation Pharmacy has completed the medication reconciliation. utilized hotel receptionist services to confirm meds. Patient states they aren't taking budesonide, mesalamine, dicyclomine, nabumetone, or pantoprazole anymore.
[2022-12-10 08:53] LABS: CDiff Gene PCR POSITIVE (Negative)
[2022-12-10 09:28] LABS: CDIFF Internal ctrl Dots and bkg OK (V); CDiff Toxin Negative (Negative)
--- NOTE | 2022-12-10 10:30 | P.CNGI_ITS ---
History of Present Illness Data of Consult Service Date: 12/10/22 Requesting physician: Chriss Christina Primary Care Provider: Vidhya Padilla NP [facility] Reason for consult: abdominal pain 57 year old [place]an-speaking female with IBS with diarrhea, colitis - SUDD, GERD, sigmoid diverticulitis, migraines headaches [place] [facility] [place] with worsening LLQ abdominal pain since around 11 am on 12/09/22 History obtained with the help of [facility] grain sp[place], Enoch. Patient states that she has been having abdominal pain for approximately 2 days and became siignificantly worse after she ate a sandwich for breakfast. Pain is 9.5/10 in intensity,is constant and becomes worse with eating. Patient denies significant improvement in pain after a bowel movement or passing gas. Pain was preceded by several episodes of non-projectile non-bloody emesis and diarrhea with greater than 20 BMs in a day. Pt complains of chills and denies fevers. Pt complains of decreased appetite with wt loss of 14- 16 lbs (from 184 to 168 lbs) She also reported an episode of blood in her urine but denied any flank pain and has no history of nephrolithiasis. Lab evaluation in ED was unrevealing except for urinalysis that showed hematuria. Pt was given several doses of IV hydromorphone with only modest relief in her symptoms. She was admitted for pain control. Pt is followed by Dr Rg in the GI clinic and felt to have SUDD (Symptomatic uncomplicated diverticular disease) More recently also diagnosed with recurrent C diff infections in August and then Sep but as has previously been documented this was with a NEGATIVE toxin i.e favors colonization rather than true infection. Pt also does not report significant improvement with PO vanc or dificid. Most recent colonoscopy in May 2022 without any evidence of inflammatory colitis, microscopic colitis or SCAD. Moderate sigmoid diverticulosis noted with luminal narrowing. She was advised treatment with mesalamine enemas daily x 2 weeks - patient states she was unable to retain the enema. She does mention she has been having similar symptoms on and off from months to years 12/09/[address] SCAN SHOWED; No acute abnormality CT scan abdomen pelvis. The previously seen mural wall thickening of the descending colon on CAT scan September 21, 2022 has resolved. There are a few diverticula of the sigmoid colon but no evidence of diverticulitis. Review of Systems 2 Review of Systems: Yes all other systems are reviewed and are negative [facility] Past Medical History Medical History Left lower quadrant pain Tubular adenoma of colon Irritable bowel syndrome with diarrhea Sigmoid diverticulitis Acute diverticulitis Diarrhea Diverticulitis Abdominal pain GERD (gastroesophageal reflux disease) Chronic idiopathic constipation Constipation Family History Family History Father Cancer HTN (hypertension) Mother HTN (hypertension) Hyperthyroidism Migraine headache Maternal Grandmother History of breast cancer Paternal Grandmother History of breast cancer Family/Other Colon cancer Paternal Aunt Ovarian cancer Surgical History Surgical History History of intestinal surgery History of partial hysterectomy (~09/2006) Hx of hemorrhoidectomy Hx of colonoscopy History of esophagogastroduodenoscopy (EGD) Social History Social History (Updated 12/10/22 @ 01:55 EDT by Mayra Ku RN) Household Members: Family and None Housing: Apartment Are you a primary patient care director to a significant other at home: No Do you presently have visiting nurse or other home services: No Alcohol intake: never Patient Tobacco Use Status: Never used Tobacco Smoked in Last 30 Days: No Use of substances other than those prescribed or required for medical reasons: No Currently Displaying Signs/Symptoms of Drug Intoxication Withdrawal: No Any prior treatment program specific to substance use: No Advance Directives: No Advance Directives Information Provided: No Advance Directives on File: No service: No Current occupational status: disabled Current occupational exposures/hazards: No Meds Allergies Allergy/AdvReac Type Severity Reaction Status Date / Time Penicillins [PENICILLINS] Allergy Intermediate HIVES/SWELL Verified 12/09/22 16:14 ING bupropion [From Wellbutrin] Allergy hives, Verified 12/09/22 16:14 swelling Active Medications: Current Medications Acetaminophen (Acetaminophen 325 Mg Tablet) 650 mg PO Q6H PRN PRN Reason: Pain, Mild (Pain Scale 1-3) Hydromorphone HCl (Hydromorphone Hcl 0.5 Mg/0.5 Ml Syringe) 0.5 mg IVPUSH Q4H PRN; Protocol PRN Reason: Pain, Severe (Pain Scale 7-10) Last Admin: 12/10/22 02:01 Dose: 0.5 mg Magnesium Hydroxide (Milk Of Magnesia 30 Ml Oral.Susp) 30 ml PO DAILY PRN PRN Reason: Constipation Melatonin (Melatonin 3 Mg Tablet) 6 mg PO BEDTIME PRN PRN Reason: Insomnia Ondansetron HCl (Ondansetron Hcl 4 Mg/2 Ml Vial) 4 mg IVPUSH Q8H PRN PRN Reason: Nausea and Vomiting Oxycodone HCl (Oxycodone Hcl Immed Release 5 Mg Tablet) 5 mg PO Q6H PRN PRN Reason: Pain, Moderate(Pain Scale 4-6) Sodium Chloride (0.9 % Sodium Chloride Flush 3 Ml Syringe) 3 ml IVFLUSH [facility] Last Admin: 12/10/22 01:16 EST Dose: Not Given Home Medications Medication Instructions Recorded Confirmed Last Taken Type galcanezumab-gnlm 120 mg/mL 120 mg subcut Q4W 11/25/21 12/10/22 12/21/21 History subcutaneous pen injector (Emgality Pen) lisinopril 20 mg tablet 20 mg PO DAILY 11/25/21 12/10/22 12/09/22 History metoprolol tartrate 25 mg tablet 25 mg PO BID 11/25/21 12/10/22 12/09/22 History nortriptyline 50 mg capsule 100 mg PO BEDTIME 11/25/21 12/10/22 01/10/22 History sumatriptan succinate 100 mg tablet 100 mg PO DAILY PRN migraine 11/25/21 12/10/22 01/11/22 History zolpidem 12.5 mg tablet,extended 12.5 mg PO BEDTIME PRN Insomnia 11/25/21 12/10/22 Unknown History release,multiphase aripiprazole 15 mg tablet 15 mg PO DAILY 03/31/22 12/10/22 12/09/22 History buspirone 15 mg tablet 15 mg PO BID 07/14/22 12/10/22 12/09/22 History cholecalciferol (vitamin D3) 25 25 mcg PO DAILY 09/20/22 12/10/22 12/09/22 History mcg (1,000 unit) tablet Physical Exam 2 Vital Signs: Vital Signs: Last Vital Signs Temp 96.8 F 12/10/22 07:06 Pulse 64 12/10/22 07:06 Resp 17 12/10/22 07:06 BP 146/68 H 12/10/22 07:06 Pulse Ox 97 12/10/22 07:06 O2 Del Method Room Air 12/10/22 07:06 BMI result Body Mass Index 28.9 Const: General: no acute distress Nutritional Appearance: overweight O rientation/consciousness: patient oriented x3 Limitations: language barrier HEENT: Head: Yes normal to inspection Ears: hearing grossly normal bilaterally Eyes: Sclerae: sclerae normal Pupils: Equal, round and reactive pupils present Neck: Neck: Yes normal visual inspection Chest: Chest palpation & inspection: normal inspection of the chest Resp: Effort & Inspection: normal respiratory effort Auscultation: clear to auscultation bilaterally Cardio: Palpation: normal PMI Rate: regular rate Rhythm: regular rhythm Heart sounds: S1 normal heart sound present, S2 normal heart sound present and no murmurs GI: Palpation (GI): Soft to palpation, Tenderness to palpation present (GI) (Mild LLQ tenderness on deep palpation) and No hepatosplenomegaly present A uscultation: normal bowel sounds Rectal Exam - Female: deferred Skin: General skin exam: no rashes or lesions noted Neuro: General: patient oriented x3, gait normal and moves all extremities Cranial nerves: Yes Equal, round and reactive pupils present Psych: Appearance: grossly normal Mental Status: mental status grossly normal Results Labs 12/10/22 06:22 12/10/22 06:22 Labs: Short CBC 12/09/22 12/10/22 Range/Units 16:34 06:22 WBC 8.4 6.0 (4.8-10.8) X10*3/uL Hgb 13.1 10.9 L (12.0-16.0) g/dl Hct 42.0 34.6 L (37.0-47.0) % Plt Count 340 280 (160-400) X10*3/uL BMP 12/09/22 12/10/22 16:34 06:22 Sodium 142 141 Potassium 3.9 3.7 Chloride 103 105 Carbon Dioxide 29 29 BUN 11 10 Creatinine 1.07 0.75 Calcium 9.8 8.8 D Liver Function 12/09/22 Range/Units 16:34 Total Bilirubin 0.2 (0.0-1.0) mg/dL Direct Bilirubin < 0.2 (0.0-0.5) mg/dL AST 18 (5-31) U/L ALT 15 (0-31) U/L Alkaline Phosphatase 77 (39-117) U/L Albumin 4.3 (3.5-5.0) g/dL Urine 12/09/22 Range/Units 16:39 Urine Color Yellow Urine Appearance Hazy Urine pH 5.5 (5.0-9.0) Ur Specific [place] >= 1.030 H (1.005-1.025) Urine Protein 30 (1+) H (Neg-Trace) mg/dL Urine Glucose (UA) Negative (Negative) mg/dL Microbiology Microbiology Results: Microbiology 12/09/22 Unknown Urine clean catch - Urine maki top Urine Culture - Preliminary No growth to date. Assessment and Plan (1) Diverticular disease of colon: Status: Acute (2) LLQ cramping: Status: Acute (3) Irritable bowel syndrome with diarrhea: Status: Acute (4) GERD (gastroesophageal reflux disease): Status: Acute Plan 57 year old [place]an-speaking female with IBS with diarrhea, colitis - SUDD, GERD, sigmoid diverticulitis, migraines headaches [place] [facility] [place] with worsening LLQ abdominal pain since around 11 am on 12/09/22 Patient states that she has been having abdominal pain for approximately 2 days and became significantly worse after she ate a sandwich for breakfast. Pain was preceded by several episodes of non-projectile non-bloody emesis and diarrhea with greater than 20 BMs in a day. Pt complains of decreased appetite with wt loss of 14- 16 lbs (from 184 to 168 lbs). Pt was given several doses of IV hydromorphone with only modest relief in her symptoms. She was admitted for pain control. Pt is followed by Dr Rg in the GI clinic and felt to have SUDD (Symptomatic uncomplicated diverticular disease) More recently also diagnosed with recurrent C diff infections in August and then Sep but as has previously been documented this was with a NEGATIVE toxin i.e favors colonization rather than true infection. Pt also does not report significant improvement with PO vanc or dificid. Recurrent abdominal pain likely related to SUDD versus SCAD (segmental colitis associated with diverticulosis) since past CT scans showed subtle colonic wall thickening in the descending and proximal sigmoid colon. Positive C Diff likely due to C Diff colonization. RECOMMENDATIONS: 1. Agree with IV antiemetics and pain medications for nausea and abdominal pain. 2. Start PO mesalamine for suspected SUDD - order placed. FU with Dr Rg in the am. From Uptodate: Symptomatic uncomplicated diverticular disease???Symptomatic uncomplicated diverticular disease (SUDD) is characterized by persistent abdominal pain attributed to diverticula in the absence of macroscopically overt colitis or diverticulitis. The prevalence of SUDD is unknown. Altered colonic motility may be one of the underlying causes of abdominal pain and constipation in patients with SUDD. In one study, patients with SUDD displayed an increase in duration of rhythmic, low-frequency contractile activity particularly in segments of the colon with diverticula. In another study, patients with diverticulosis were demonstrated to have a significantly reduced density of interstitial cells of [place] as compared with controls, suggesting that abnormal colonic motility may be the underlying cause of symptoms SUDD is difficult to differentiate from smoldering diverticulitis and irritable bowel syndrome. Usually, CT scan in patients with smoldering disease reveals ongoing inflammation. Although the data are sparse, in the authors' practice, fecal calprotectin is often elevated in patients with smoldering diverticulitis. Irritable bowel syndrome is common following an episode of diverticulitis perhaps due to visceral hypersensitivity. However, it is controversial whether SUDD is a separate entity from irritable bowel syndrome, particularly in those without prior diverticulitis. It has been hypothesized that visceral hypersensitivity plays an important role in the development of symptoms in patients with diverticulosis who do not have overt diverticulitis. A study compared colonic visceral pain perception in response to luminal distention in patients with SUDD, asymptomatic diverticulosis, and healthy controls. In this study, patients with SUDD but not asymptomatic diverticulosis and healthy controls demonstrated a heightened pain perception both in the sigmoid colon with diverticula and in the unaffected rectum. The mechanism of hypersensitivity in patients with SUDD may relate to increased neuropeptides and alterations in enteric innervation following an episode of diverticulitis ]. Procedures Date of Service Date of Service: 12/10/22
[2022-12-10] MEDS: ondansetron HCL 4 MG/2 ML VIAL IVPUSH (10:43)
[2022-12-10] MEDS: 0.9 % Sodium Chloride Flush 3 ML SYRINGE IVFLUSH ×2 (10:44→16:24)
[2022-12-10 11:04] VITALS: BP 130/70; PULSE 60; RESP 15; TEMP 36.1; O2SAT 98
[2022-12-10] MEDS: Cholecalciferol (Vitamin D3) 25 MCG TABLET PO (12:34)
[2022-12-10] MEDS: Metoprolol Tartrate 25 MG TABLET PO ×2 (12:34→21:59)
[2022-12-10] MEDS: busPIRone HCl 5 MG TABLET 15 MG PO (12:34)
[2022-12-10] MEDS: lisinopriL 20 MG TABLET PO (12:34)
--- NOTE | 2022-12-10 13:39 | P.PNIM_ITS ---
Subjective Subjective Date of Service: 12/10/22 Interval History: Continues with diffuse abdominal cramping increase in left lower quadrant. Pain control poor (all information via port engineer) Review of Systems Denies chest pain Denies shortness of breath Denies nausea vomiting diarrhea Denies fever chills Physical Exam 2 Vital Signs: Vital Signs: Last Vital Signs Temp 97 F 12/10/22 11:04 Pulse 60 12/10/22 11:04 Resp 15 12/10/22 11:04 BP 130/70 12/10/22 11:04 Pulse Ox 98 12/10/22 11:04 O2 Del Method Room Air 12/10/22 11:04 BMI result Body Mass Index 28.9 Const: Other: Awake alert. Uncomfortable appearing in bed Resp: Other: Clear to auscultation bilaterally no rales rhonchi wheezes Cardio: Other: No S4; positive S1-S2; no S3 murmurs rubs or gallops GI: Other: Diffusely tender throughout abdomen without rebound. Bowel sounds quiet Extrem: Other: No edema bilaterally Objective Data Active Medications Acetaminophen (Acetaminophen 325 Mg Tablet) 650 mg PO Q6H PRN PRN Reason: Pain, Mild (Pain Scale 1-3) Aripiprazole (Aripiprazole 15 Mg Tablet) 15 mg PO DAILY [facility] Buspirone HCl (Buspirone Hcl 5 Mg Tablet) 15 mg PO BID [facility] Last Admin: 12/10/22 12:34 Dose: 15 mg Documented By: CHERI Lisinopril (Lisinopril 20 Mg Tablet) 20 mg PO DAILY [facility]; Protocol Last Admin: 12/10/22 12:34 Dose: 20 mg Documented By: CHERI Loperamide HCl (Loperamide Hcl 2 Mg Capsule) 2 mg PO Q6H PRN PRN Reason: Diarrhea Magnesium Hydroxide (Milk Of Magnesia 30 Ml Oral.Susp) 30 ml PO DAILY PRN PRN Reason: Constipation Melatonin (Melatonin 3 Mg Tablet) 6 mg PO BEDTIME PRN PRN Reason: Insomnia Metoprolol Tartrate (Metoprolol Tartrate 25 Mg Tablet) 25 mg PO BID [facility]; Protocol Last Admin: 12/10/22 12:34 Dose: 25 mg Documented By: CHERI Nortriptyline HCl (Nortriptyline Hcl 25 Mg Capsule) 100 mg PO BEDTIME [facility] Ondansetron HCl (Ondansetron Hcl 4 Mg/2 Ml Vial) 4 mg IVPUSH Q8H PRN PRN Reason: Nausea and Vomiting Last Admin: 12/10/22 10:43 Dose: 4 mg Documented By: CHERI Sodium Chloride (0.9 % Sodium Chloride Flush 3 Ml Syringe) 3 ml IVFLUSH QSHIFT [facility] Last Admin: 12/10/22 10:44 Dose: 3 ml Documented By: CHERI Sumatriptan Succinate (Sumatriptan Succinate 100 Mg Tablet) 100 mg PO DAILY PRN PRN Reason: migraine Vitamin D (Cholecalciferol (Vitamin D3) 25 Mcg Tablet) 25 mcg PO DAILY [facility] Last Admin: 12/10/22 12:34 Dose: 25 mcg Documented By: CHERI Labs 12/10/22 06:22 12/10/22 06:22 Labs: Laboratory Results - last 24 hr 12/09/22 12/09/22 12/09/22 16:34 16:39 18:05 MCV 85.4 MCH 26.6 L MCHC 31.2 RDW 14.1 Plt Count 340 MPV 9.4 Immature Gran % (Auto) 0.2 Neut % (Auto) 48.4 Lymph % (Auto) 42.7 H [place] % (Auto) 6.8 Eos % (Auto) 1.4 Baso % (Auto) 0.5 Lymph # (Auto) 3.6 [place] # (Auto) 0.6 Eos # (Auto) 0.1 Baso # (Auto) 0.0 Abs Immat Gran (auto) 0.02 Absolute Neuts (auto) 4.1 Absolute Nucleated RBC 0.000 Nucleated RBC % (auto) 0.0 ESR 12 Anion Gap 14 Estim Creat Clear Calc 56.8 Estimated GFR 53 Random Glucose 100 Lactic Acid Calcium 9.8 Total Bilirubin 0.2 Direct Bilirubin < 0.2 AST 18 ALT 15 Alkaline Phosphatase 77 C-Reactive Protein 0.16 Total Protein 7.7 Albumin 4.3 Lipase 22 Urine Color Yellow Urine Appearance Hazy Urine pH 5.5 Ur Specific Ruth >= 1.030 H Urine Protein 30 (1+) H Urine Glucose (UA) Negative Urine Ketones Negative Urine Blood Large (3+) H Urine Nitrite Negative Ur Leukocyte Esterase Negative Urine RBC >20 H Urine WBC 6-10 H Ur Squamous Epith Cells 11-20 Calcium Oxalate Crystal Present Urine Bacteria 2+ Hyaline Casts 3-5 Stool Occult Blood NEGATIVE C. difficile Tox B Gene C. difficile Toxin A&B C. difficile Interpret 12/09/22 12/10/22 12/10/22 18:31 06:22 07:09 MCV 85.9 MCH 27.0 MCHC 31.5 RDW 14.1 Plt Count 280 MPV 9.8 Immature Gran % (Auto) Neut % (Auto) Lymph % (Auto) [place] % (Auto) Eos % (Auto) Baso % (Auto) Lymph # (Auto) [place] # (Auto) Eos # (Auto) Baso # (Auto) Abs Immat Gran (auto) Absolute Neuts (auto) Absolute Nucleated RBC 0.000 Nucleated RBC % (auto) 0.0 ESR Anion Gap 11 L Estim Creat Clear Calc 81.7 Estimated GFR > 60 Random Glucose 86 Lactic Acid 2.0 Calcium 8.8 D Total Bilirubin Direct Bilirubin AST ALT Alkaline Phosphatase C-Reactive Protein Total Protein Albumin Lipase Urine Color Urine Appearance Urine pH Ur Specific Ruth Urine Protein Urine Glucose (UA) Urine Ketones Urine Blood Urine Nitrite Ur Leukocyte Esterase Urine RBC Urine WBC Ur Squamous Epith Cells Calcium Oxalate Crystal Urine Bacteria Hyaline Casts Stool Occult Blood C. difficile Tox B Gene POSITIVE A* C. difficile Toxin A&B Negative C. difficile Interpret SEE NOTE Microbiology Microbiology Results: Microbiology 12/09/22 Unknown Urine Culture - Preliminary Urine clean catch - Urine maki top No growth to date. Assessment and Plan (1) Diverticular disease of colon: Status: Acute Plan 57 YF with IBS with diarrhea, colitis - SUDD, GERD, sigmoid diverticulitis, migraines headaches seen at [facility] on 12/09/22 with LLQ abdominal pain since around 11 am on 12/09/22 Pt stated her pain started after she ate a sandwich for breakfast. Pain was preceded by several episodes of non-projectile non-bloody emesis. Minimal relief from pain regimen 1. LLQ abdominal pain likely related to SUDD - continue clear liquids -analgesia is adjusted -if pain does not improve. .. Surgical consult 2. Hematyuria - she reports an isolated episode of gross hematuria - UA with > 20 RBC/hpf - monitor FULL DVT: Low risk. Encourage ambulation Requires ongoing hospitalization for IV analgesia to treat SUDD; may ultimately need surgical consult Quality Stroke Does the patient have a stroke diagnosis?: No VTE Prior VTE?: No VTE Risk Level:: Medical - low VTE Device Contraindication: Treatment Not Indicated VTE Drug Contraindication: Treatment Not Indicated
[2022-12-10] MEDS: ARIPiprazole 15 MG TABLET PO (13:57)
[2022-12-10] MEDS: SUMAtriptan succinate 100 MG TABLET PO (13:58)
[2022-12-10 16:00] VITALS: BP 127/59; PULSE 65; RESP 14; TEMP 36.6; O2SAT 97
[2022-12-10] MEDS: Mesalamine 400 MG CAP.DRTAB. 800 MG PO ×2 (16:24→21:59)
[2022-12-10 20:00] VITALS: BP 132/62; PULSE 65; RESP 12; TEMP 37.2; O2SAT 95
[2022-12-10] MEDS: Nortriptyline HCl 25 MG CAPSULE 100 MG PO (21:59)
[2022-12-10 23:28] VITALS: BP 123/68; PULSE 77; RESP 18; TEMP 36.2; O2SAT 96
[2022-12-11] MEDS: 0.9 % Sodium Chloride Flush 3 ML SYRINGE IVFLUSH ×4 (00:57→20:31)
[2022-12-11 03:19] VITALS: BP 118/67; PULSE 70; RESP 18; TEMP 36.5; O2SAT 98
[2022-12-11 06:42] LABS: MANUAL DIFF FLAG NO
[2022-12-11 07:06] LABS: Alanine Aminotransferase 13 U/L (0-31); Albumin Level 3.4 g/dL (3.5-5.0); Alkaline Phosphatase 57 U/L (39-117); Anion Gap 10 (12-20); Aspartate Amino Transferase 16 U/L (5-31); Bilirubin Total 0.5 mg/dL (0.0-1.0); Blood Urea Nitrogen 8 mg/dL (9-16); Carbon Dioxide 29 mmol/L (22-29); Chloride 106 mmol/L (96-108); Creatinine Clr Calc Pharmacy 80.7; Estimated Glomerular Filt Rate > 60; Glucose Fasting 92 mg/dL (60-99); Potassium 3.9 mmol/L (3.3-5.1); Sodium 141 mmol/L (135-145); Total Protein 5.9 g/dL (6.5-8.0)
[2022-12-11 07:18] LABS: Basophils Percent Auto 0.5 % (0-2); Eosinophils Absolute Auto 0.1 X10*3/uL (0.0-0.4); Eosinophils Percent Auto 2.5 % (0-4); Hematocrit 35.7 % (37.0-47.0); Hemoglobin 11.3 g/dl (12.0-16.0); Imm Gran Abs Auto 0.01 X10*3/uL (0.00-0.03); Imm Gran Pct Auto 0.2 % (0.0-0.4); Lymphocytes Absolute Auto 1.8 X10*3/uL (1.2-4.9); Lymphocytes Percent Auto 44.8 % (20-40); Mean Corpuscular HGB Conc 31.7 g/dl (31.0-35.0); Mean Corpuscular Hemoglobin 27.2 pg (27.0-33.0); Mean Corpuscular Volume 85.8 fL (80.0-98.0); Mean Platelet Volume 9.6 fL (9.4-12.3); Monocytes Absolute Auto 0.4 X10*3/uL (0.1-1.2); Monocytes Percent Auto 8.6 % (2-11); Neutrophils Absolute Auto 1.8 x10*3/uL (2.0-8.3); Neutrophils Percent Auto 43.4 % (45-73); Platelet Count 274 X10*3/uL (160-400); Red Blood Count 4.16 X10*6/uL (4.20-5.50); Red Cell Distribution Width 13.9 % (11.0-16.0); White Blood Count 4.1 X10*3/uL (4.8-10.8)
[2022-12-11 08:00] VITALS: BP 128/60; PULSE 62; RESP 19; TEMP 36.6; O2SAT 99
[2022-12-11] MEDS: oxyCODONE HCl Immed Release 5 MG TABLET 10 MG PO (09:54)
[2022-12-11] MEDS: Metoprolol Tartrate 25 MG TABLET PO ×2 (09:55→22:03)
[2022-12-11] MEDS: ARIPiprazole 15 MG TABLET PO (09:55)
[2022-12-11] MEDS: Mesalamine 400 MG CAP.DRTAB. 800 MG PO ×3 (09:55→20:51)
[2022-12-11] MEDS: Cholecalciferol (Vitamin D3) 25 MCG TABLET PO (09:55)
[2022-12-11] MEDS: busPIRone HCl 5 MG TABLET 15 MG PO ×2 (09:55→20:51)
[2022-12-11] MEDS: lisinopriL 20 MG TABLET PO (09:55)
[2022-12-11 11:20] VITALS: BP 108/56; PULSE 74; RESP 19; TEMP 36.9
--- NOTE | 2022-12-11 11:46 | MHC.CM.PN ---
Gwen in Mexican via conference interpreter 12/11/22, Pt lives with grand daughter, she does not have home health services or med equipment at home. She has not used VNA services or been to [facility] in the past. Her preference if it is needed is Mexican speaking staff. Her sister can provide transportation home. CM will follow and assist with DC plan.
--- NOTE | 2022-12-11 12:31 | PM.GIPN ---
Subjective Subjective Date of Service: 12/11/22 Interval History: Seen in consultation over the weekend for recurrent LLQ pain with diarrhea. Started on PO mesalamine. Reports only 2 BMs so far as of this afternoon, in contrast to 5-6 BMs per day prior to starting med. Was given mesalamine enema as outpatient which she was not able to tolerate at home. C Diff PCR again positive this admission but with negative toxin. Critical Care Time (minutes): 0 Physical Exam Vital Signs: Vital Signs: Last Vital Signs Temp 98.4 F 12/11/22 11:20 Pulse 74 12/11/22 11:20 Resp 19 12/11/22 11:20 BP 108/56 L 12/11/22 11:20 Pulse Ox 99 12/11/22 08:00 O2 Del Method Room Air 12/11/22 11:20 FiO2 98 12/11/22 11:20 BMI result Body Mass Index 28.9 Gen appear: NAD HEENT: nonicteric Abd: soft, tenderness in LLQ Objective Data Labs 12/11/22 06:36 12/11/22 06:36 Labs: Laboratory Results - last 24 hr 12/11/22 06:36 WBC 4.1 L RBC 4.16 L Hgb 11.3 L Hct 35.7 L MCV 85.8 MCH 27.2 MCHC 31.7 RDW 13.9 Plt Count 274 MPV 9.6 Immature Gran % (Auto) 0.2 Neut % (Auto) 43.4 L Lymph % (Auto) 44.8 H [place] % (Auto) 8.6 Eos % (Auto) 2.5 Baso % (Auto) 0.5 Lymph # (Auto) 1.8 [place] # (Auto) 0.4 Eos # (Auto) 0.1 Baso # (Auto) 0.0 Abs Immat Gran (auto) 0.01 Absolute Neuts (auto) 1.8 L Absolute Nucleated RBC 0.000 Nucleated RBC % (auto) 0.0 Sodium 141 Potassium 3.9 Chloride 106 Carbon Dioxide 29 Anion Gap 10 L BUN 8 L Creatinine 0.76 Estim Creat Clear Calc 80.7 Estimated GFR > 60 Fasting Glucose 92 Calcium 9.0 Total Bilirubin 0.5 AST 16 ALT 13 Alkaline Phosphatase 57 Total Protein 5.9 L Albumin 3.4 L Microbiology Microbiology Results: Microbiology 12/09/22 Unknown Urine clean catch - Urine maki top Urine Culture - Final 12/09/22 18:31 Blood - Venous Blood Culture - Preliminary No growth after 24 hours. 12/09/22 18:02 Blood - Venous Blood Culture - Preliminary No growth after 24 hours. Procedures Date of Service Date of Service: 12/11/22 Progress Note: A&P Assessment and plan (1) LLQ cramping: Status: Acute (2) Diverticular disease of colon: Status: Acute (3) Colitis: Status: Acute Plan Assessment remains consistent with SUDD with promising response to mesalamine PO so far. Pt reports was not able to hold enemas previously at home. Plan: - Cont PO mesalamine - Advance diet as tolerated - Would also recommend checking with Infectious Diseases if any clinical indication and benefit of FMT for CDiff colonization in this pt with recurrent diarrhea without apparent CDI. Time Spent With Patient Time: Total time managing care of this patient today ____ minutes. Quality Stroke Does the patient have a stroke diagnosis?: No VTE Prior VTE?: No VTE Risk Level:: Medical - low VTE Device Contraindication: Treatment Not Indicated VTE Drug Contraindication: Treatment Not Indicated
--- NOTE | 2022-12-11 14:31 | HO.PM.IMPN ---
Subjective Subjective Date of Service: 12/11/22 Interval History: Complaining of persistent 9/10 left lower quadrant pain, tolerating clear liquid diet, had lows bowel movement this morning, denies fever, no chills, taking IV Dilaudid and by mouth oxycodone for pain control, blood culture urine culture negative,stable cbc and electrolytes. Review of Systems All other system reviewed and negative. Physical Exam Vital Signs: Vital Signs: Last Vital Signs Temp 98.4 F 12/11/22 11:20 Pulse 74 12/11/22 11:20 Resp 19 12/11/22 11:20 BP 108/56 L 12/11/22 11:20 Pulse Ox 99 12/11/22 08:00 O2 Del Method Room Air 12/11/22 11:20 FiO2 98 12/11/22 11:20 BMI result Body Mass Index 28.9 Const: Other: General awake alert x3, in no acute distress. Neck no JVD. CVS regular rate rhythm, Respiratory lungs clear to auscultation, no respiratory distress, no wheeze, no rhonchi. Gastrointestinal abdomen soft, left lower quadrant tenderness to palpation, bowel sounds audible, no guarding , no rigidity. Extremities no edema. Neuro nonfocal Skin no rash Psych appropriate affect. Objective Data Active Medications Acetaminophen (Acetaminophen 325 Mg Tablet) 650 mg PO Q6H PRN PRN Reason: Pain, Mild (Pain Scale 1-3) Aripiprazole (Aripiprazole 15 Mg Tablet) 15 mg PO DAILY [facility] Last Admin: 12/11/22 09:55 Dose: 15 mg Documented By: SARITA Buspirone HCl (Buspirone Hcl 5 Mg Tablet) 15 mg PO BID [facility] Last Admin: 12/11/22 09:55 Dose: 15 mg Documented By: SARITA Hydromorphone HCl (Hydromorphone Hcl 1 Mg/Ml Syringe) 1 mg IVPUSH Q4H PRN; Protocol PRN Reason: Pain, Severe (Pain Scale 7-10) Lisinopril (Lisinopril 20 Mg Tablet) 20 mg PO DAILY [facility]; Protocol Last Admin: 12/11/22 09:55 Dose: 20 mg Documented By: SARITA Loperamide HCl (Loperamide Hcl 2 Mg Capsule) 2 mg PO Q6H PRN PRN Reason: Diarrhea Magnesium Hydroxide (Milk Of Magnesia 30 Ml Oral.Susp) 30 ml PO DAILY PRN PRN Reason: Constipation Melatonin (Melatonin 3 Mg Tablet) 6 mg PO BEDTIME PRN PRN Reason: Insomnia Mesalamine (Mesalamine 400 Mg Cap.Drtab.) 800 mg PO TID [facility] Last Admin: 12/11/22 09:55 Dose: 800 mg Documented By: SARITA Metoprolol Tartrate (Metoprolol Tartrate 25 Mg Tablet) 25 mg PO BID [facility]; Protocol Last Admin: 12/11/22 09:55 Dose: 25 mg Documented By: SARITA Nortriptyline HCl (Nortriptyline Hcl 25 Mg Capsule) 100 mg PO BEDTIME [facility] Last Admin: 12/10/22 21:59 Dose: 100 mg Documented By: CLARKE Ondansetron HCl (Ondansetron Hcl 4 Mg/2 Ml Vial) 4 mg IVPUSH Q8H PRN PRN Reason: Nausea and Vomiting Last Admin: 12/10/22 10:43 Dose: 4 mg Documented By: CHERI Oxycodone HCl (Oxycodone Hcl Immed Release 5 Mg Tablet) 10 mg PO Q4H PRN PRN Reason: Pain, Moderate(Pain Scale 4-6) Last Admin: 12/11/22 09:54 Dose: 10 mg Documented By: SARITA Sodium Chloride (0.9 % Sodium Chloride Flush 3 Ml Syringe) 3 ml IVFLUSH QSHI Last Admin: 12/11/22 09:55 Dose: 3 ml Documented By: SARITA Sumatriptan Succinate (Sumatriptan Succinate 100 Mg Tablet) 100 mg PO DAILY PRN PRN Reason: migraine Last Admin: 12/10/22 13:58 Dose: 100 mg Documented By: CHERI Vitamin D (Cholecalciferol (Vitamin D3) 25 Mcg Tablet) 25 mcg PO DAILY [facility] Last Admin: 12/11/22 09:55 Dose: 25 mcg Documented By: SARITA Labs 12/11/22 06:36 11 06:36 Labs: Laboratory Results - last 24 hr 12/11/22 06:36 MCV 85.8 MCH 27.2 MCHC 31.7 RDW 13.9 Plt Count 274 MPV 9.6 Immature Gran % (Auto) 0.2 Neut % (Auto) 43.4 L Lymph % (Auto) 44.8 H [place] % (Auto) 8.6 Eos % (Auto) 2.5 Baso % (Auto) 0.5 Lymph # (Auto) 1.8 [place] # (Auto) 0.4 Eos # (Auto) 0.1 Baso # (Auto) 0.0 Abs Immat Gran (auto) 0.01 Absolute Neuts (auto) 1.8 L Absolute Nucleated RBC 0.000 Nucleated RBC % (auto) 0.0 Anion Gap 10 L Estim Creat Clear Calc 80.7 Estimated GFR > 60 Fasting Glucose 92 Calcium 9.0 Total Bilirubin 0.5 AST 16 ALT 13 Alkaline Phosphatase 57 Total Protein 5.9 L Albumin 3.4 L Microbiology Microbiology Results: Microbiology 12/09/22 Unknown Urine Culture - Final Urine clean catch - Urine maki top 12/09/22 18:31 Blood Culture - Preliminary Blood - Venous No growth after 24 hours. 12/09/22 18:02 Blood Culture - Preliminary Blood - Venous No growth after 24 hours. Assessment and Plan (1) Diverticular disease of colon: Status: Acute Plan 57 YF with IBS with diarrhea, colitis - SUDD, GERD, sigmoid diverticulitis, migraines headaches seen at [facility] on 12/09/22 with LLQ abdominal pain since around 11 am on 12/09/22 Pt stated her pain started after she ate a sandwich for breakfast. Pain was preceded by several episodes of non-projectile non-bloody emesis. Minimal relief from pain regimen 1. LLQ abdominal pain likely related to SUDD (symptomatic uncomplicated diverticular disease) Persistent left lower quadrant abdominal pain on clear liquid diet, no fevers, no chills - seen by Dr. Rg she recommend to continue mesalamine, advance diet as tolerated and recommend ID consult for any clinical indication and benefit for fecal microbiota transplantation for C diff colonization in this pt with recurrent diarrhea without apparent C diff infection Will place on regular diet bland, consult ID Wean IV Dilaudid 2. Hematuria - an isolated episode of gross hematuria,resolved - UA with > 20 RBC/hpf 3. Mood disorder continue home medications 4. Hypertension on lisinopril 20 mg and metoprolol 25 b.i.d. stable blood pressures. FULL DVT: Low risk. Encourage ambulation Requires ongoing hospitalization for IV analgesia to treat SUDD; waiting for expert consultation Quality Stroke Does the patient have a stroke diagnosis?: No VTE Prior VTE?: No VTE Risk Level:: Medical - low VTE Device Contraindication: Treatment Not Indicated VTE Drug Contraindication: Treatment Not Indicated
[2022-12-11 15:33] VITALS: BP 111/57; PULSE 55; RESP 18; TEMP 36.4; O2SAT 98
[2022-12-11 19:49] VITALS: BP 102/59; PULSE 81; RESP 18; TEMP 37; O2SAT 97
[2022-12-11] MEDS: HYDROmorphone HCl 1 MG/ML SYRINGE 0.5 MG IVPUSH (20:49)
[2022-12-11] MEDS: Nortriptyline HCl 25 MG CAPSULE 100 MG PO (20:51)
[2022-12-11 22:00] VITALS: BP 107/55; PULSE 62; RESP 18; O2SAT 95
[2022-12-12] VITALS: BP 106/58; PULSE 68; RESP 18; TEMP 36.4; O2SAT 96
[2022-12-12 03:31] VITALS: PULSE 53; RESP 18; TEMP 36.4; O2SAT 98
[2022-12-12 05:00] VITALS: BP 92/50
[2022-12-12 07:10] VITALS: BP 142/66; PULSE 69; RESP 20; TEMP 36.1; O2SAT 99
[2022-12-12] MEDS: busPIRone HCl 5 MG TABLET 15 MG PO (08:25)
[2022-12-12] MEDS: ARIPiprazole 15 MG TABLET PO (08:26)
[2022-12-12] MEDS: Mesalamine 400 MG CAP.DRTAB. 800 MG PO (08:26)
[2022-12-12] MEDS: 0.9 % Sodium Chloride Flush 3 ML SYRINGE IVFLUSH (08:26)
[2022-12-12] MEDS: Cholecalciferol (Vitamin D3) 25 MCG TABLET PO (08:26)
[2022-12-12] MEDS: Metoprolol Tartrate 25 MG TABLET PO (08:26)
[2022-12-12] MEDS: lisinopriL 20 MG TABLET PO (08:26)
--- NOTE | 2022-12-12 10:11 | PM.DS ---
DS: Providers Provider Date of Service: 12/12/22 Date of admission: 12/09/22 20:11 Primary care physician: Vidhya Padilla NP Consults: 12/10/22 07:13 Consult to Gastroenterology Routine Consulting Provider: Sukhi Blair Reason for consultation: ABD pain w/HX crohns Has provider been notified: Yes 12/11/22 14:46 Consult to Infectious Diseases Routine Consulting Provider[place] [facility] Reason for consultation: for fecal transplant for C diff colonization DS: Diagnosis Discharge Diagnosis (1) Diverticular disease of colon: Status: Acute DS: Summary Hospital Course Hospital Course: History of presenting illness: Date of Service: 12/09/22 Attending physician on admission: Buzz Resendiz Chief Complaint: LLQ abdominal pain x 1 day Patient is a 57 year with history of IBS with diarrhea, colitis, GERD, sigmoid diverticulitis, migraines headaches who presents from home accompanied by her sister and granddaughter who presents to the emergency room from home complaining of LLQ abdominal pain since around 11 am this ,morning shortly after eating a sandwich for breakfast. Pain was preceded by several episodes of non-projectile non-bloody emesis. No associated diarrhea, fevers or chills. She also reports an episode of blood urine but denies any flank pain and has no history of nephrolithiasis. She tried to wait it out for 2 hours but was not getting any better and so presented to the emergency room where initial work up was unrevealing except for urinalysis that showed hematuria. She has required several doses of IV hydromorphone with only modest relief in her symptoms. Admission was requested for pain control. Hospital course 57 YF with IBS with diarrhea, colitis - SUDD, GERD, sigmoid diverticulitis, migraines headaches seen at [facility] on 12/09/22 with LLQ abdominal pain since around 11 am on 12/09/22 Pt stated her pain started after she ate a sandwich for breakfast. Pain was preceded by several episodes of non-projectile non-bloody emesis. Minimal relief from pain regimen patient admitted to medical floor for pain control and admitted with a diagnosis of: 1. LLQ abdominal pain likely related to SUDD (symptomatic uncomplicated diverticular disease), patient was treated with analgesics,iv fluids,was seen by Dr. Rg from Gastroenterology she recommend to continue mesalamine, her diet was gradually advance that she is tolerating well,has persistent chronic left lower quadrant pain and intermittent diarrhea but less frequent bowel movements since mesalamine, since patient has no fevers, stable electrolytes and renal function, she is being discharged home with recommendation to follow-up with GI as outpatient, outpatient ID consult for any clinical indication and benefit for fecal microbiota transplantation for C diff colonization in this pt with recurrent diarrhea without apparent C diff infection,, outpatient surgical eval for any surgical intervention. 2. Hematuria had 1 episode of hematuria on admission, with no recurrent episodes, urine culture showed mixed bacterial adrian. 3. Mood disorder continue home medications 4. Hypertension on lisinopril 20 mg and metoprolol 25 b.i.d. stable blood pressures. Time Attestation Discharge coordination time: Greater than 30 minutes Quality: Safe Use of Opioids Does Pt have an Active Cancer Diagnosis on the Problem List?: No Quality: Stroke Does the patient have a stroke diagnosis?: No Physical Exam Vital Signs: Vital Signs: Last Vital Signs Temp 96.9 F 12/12/22 07:10 Pulse 69 12/12/22 07:10 Resp 20 12/12/22 07:10 BP 142/66 H 12/12/22 07:10 Pulse Ox 99 12/12/22 07:10 O2 Del Method Room Air 12/12/22 07:10 FiO2 98 12/11/22 11:20 BMI result Body Mass Index 28.9 Const: Other: General awake alert x3, in no acute distress. Neck no JVD. CVS regular rate rhythm, Respiratory lungs clear to auscultation, no respiratory distress, no wheeze, no rhonchi. Gastrointestinal abdomen soft, left lower quadrant tenderness to palpation, bowel sounds audible, no guarding , no rigidity. Extremities no edema. Neuro non focal Skin no rash Psych appropriate affect. DS: Data Data Completed and Pending Labs on day of discharge: Preliminary micro results at discharge 12/09/22 18:31 Blood Culture - Preliminary Blood - Venous No growth after 48 hours. 12/09/22 18:02 Blood Culture - Preliminary Blood - Venous No growth after 48 hours. Discharge Plan Discharge Patient Disposition: Home, Self-Care Discharge Diagnosis: Left lower quadrant abdominal pain Referrals: Vidhya Padilla NP [Primary Care Provider] - 1 Week Discharge Medications: New mesalamine [Delzicol] 400 mg Capsule (With Del Rel Tablets) 800 mg PO TID Qty: 90 0RF Continued loperamide 2 mg Capsule 2 mg PO Q6H PRN (Reason: Diarrhea) Qty: 20 0RF Hold Instructions: Doctor's Order lisinopril 20 mg tablet 20 mg PO DAILY zolpidem 12.5 mg tablet,ext release multiphase 12.5 mg PO BEDTIME PRN (Reason: Insomnia) sumatriptan succinate 100 mg tablet 100 mg PO DAILY PRN (Reason: migraine) nortriptyline 50 mg capsule 100 mg PO BEDTIME Emgality Pen 120 mg/mL pen injector 120 mg subcut Q4W metoprolol tartrate 25 mg tablet 25 mg PO BID cholecalciferol (vitamin D3) 25 mcg (1,000 unit) tablet 25 mcg PO DAILY aripiprazole 15 mg tablet 15 mg PO DAILY ondansetron 4 mg tablet,disintegrating 4 mg PO TID PRN (Reason: nausea and vomiting) 5 Days Qty: 30 3RF buspirone 15 mg tablet 15 mg PO BID Discharge Orders: Discharge Order (Routine); Ordered 12/12/22 Ordered By: Tadeo Perez Diet: Advance to usual diet Activity on Discharge: As tolerated Stand Alone Forms: Patient Portal Discharge page Care Plan Goals: Take mesalamine as ordered Take bland diet Health Concerns: Take all home Plan of Treatment: Outpatient follow-up with primary care physician and carpenter repair Dr. Rg Assessment: As above Patient Instructions: Mesalamine (By mouth) Discharge Date/Time: 12/12/22 14:00
--- NOTE | 2022-12-12 12:27 | MHC.CM.PN ---
Pt has been medically cleared for DC, she is going home, self care.
== END 2022-12-12 14:00 | disposition home or self-care (01) ==
LOC: HO.ED 21:15 → HO.EDOVER 21:21 → HO.IMC 12-10 00:35
PROVIDERS: Hospitalist; Physician Assistant Medical; Admitting Provider Internal Medicine; Emergency Provider Emergency Medicine; PCP Nurse Practitioner Family; Visit Provider Hospitalist
DX: R10.32 Left lower quadrant pain (principal); R31.0 Gross hematuria; K57.30 Diverticulosis of large intestine without perforation or abscess without bleeding; K58.0 Irritable bowel syndrome with diarrhea; K21.9 Gastro-esophageal reflux disease without esophagitis; I10 Essential (primary) hypertension; K57.32 Diverticulitis of large intestine without perforation or abscess without bleeding; F39 Unspecified mood [affective] disorder; Z79.899 Other long term (current) drug therapy
CPT/HCPCS: 36415; 74176; 80048; 80053; 80076; 81001; 82272; 83605; 83690; 85025; 85027; 85652; 86140; 87040; 87086; 87324; 87493; 96361; 96374; 96375; 96376; 99222; 99285; J1170; J2405

== ENCOUNTER → 2022-12-09 20:11 | Outpatient (BNV) | payer MEDICAID, SELFPAY | PROVIDERS: Admitting Provider Internal Medicine; Emergency Provider Emergency Medicine; PCP Nurse Practitioner Family; Visit Provider Hospitalist | DX: K57.30 Diverticulosis of large intestine without perforation or abscess without bleeding (principal) | CPT/HCPCS: 99232; 99233; 99239 ==

== ENCOUNTER → 2022-12-09 20:11 | Outpatient (BNV) | payer MEDICAID, SELFPAY | PROVIDERS: Admitting Provider Internal Medicine; Emergency Provider Emergency Medicine; PCP Nurse Practitioner Family; Visit Provider Internal Medicine | DX: R10.32 Left lower quadrant pain (principal); K57.30 Diverticulosis of large intestine without perforation or abscess without bleeding; K52.9 Noninfective gastroenteritis and colitis, unspecified | CPT/HCPCS: 99232 ==

== ENCOUNTER → 2022-12-09 20:11 | Outpatient (BNV) | payer MEDICAID, SELFPAY | PROVIDERS: Admitting Provider Internal Medicine; Emergency Provider Emergency Medicine; PCP Nurse Practitioner Family; Visit Provider Internal Medicine Gastroenterology | DX: K57.30 Diverticulosis of large intestine without perforation or abscess without bleeding (principal); K58.0 Irritable bowel syndrome with diarrhea; K21.9 Gastro-esophageal reflux disease without esophagitis | CPT/HCPCS: 99222 ==

== ENCOUNTER 2022-12-14 08:05 | Outpatient (REF) | payer MEDICAID, SELFPAY ==
--- NOTE | ~2022-12-14 | US_ITS ---
EXAMINATION: US ABDOMEN COMPLETE CLINICAL INFORMATION: Epigastric pain. COMPARISON: CT abdomen and pelvis 12/09/2022. TECHNIQUE: Real-time imaging of the abdominal viscera. FINDINGS: PANCREAS: Visualized portions of the pancreas are unremarkable however portions are obscured by bowel gas limiting evaluation. ABDOMINAL AORTA: The proximal, mid, and distal segments are normal in caliber. INFERIOR VENA CAVA: Visualized portions are normal. LIVER: Normal. The liver is normal in size. The liver contour is normal. Parenchymal echogenicity is normal. No focal hepatic lesion. There is no intrahepatic biliary duct dilatation seen. GALLBLADDER: Normal. The gallbladder is physiologically distended without evidence of stones, sludge, polyps, wall thickening or pericholecystic fluid. COMMON BILE DUCT: Normal in caliber measuring 0.4 cm in diameter. RIGHT KIDNEY: No hydronephrosis or renal calculi. The kidney measures 10.1 cm in maximum dimension. LEFT KIDNEY: Normal. No hydronephrosis. No renal calculi or focal parenchymal lesions. The kidney measures 9.5 cm in maximum dimension. SPLEEN: Normal. The spleen measures 9.9 cm in maximum dimension. FREE FLUID: None. ADDITIONAL FINDINGS: Targeted views of the left lower quadrant are unremarkable. US/US abdomen complete IMPRESSION: No acute findings to explain symptoms of abdominal pain.
== END 2022-12-14 08:06 | disposition home or self-care (01) ==
LOC: HO.US 08:05
PROVIDERS: PCP Internal Medicine; Visit Provider Nurse Practitioner
DX: R10.32 Left lower quadrant pain (principal)
CPT/HCPCS: 76700

== ENCOUNTER 2022-12-21 08:30 | Outpatient (AMB) | payer MEDICAID, SELFPAY ==
--- NOTE | 2022-12-21 08:35 | MHC.OFFVIS ---
Intake Vital Signs 12/21/22 08:40 Height 5 ft 4 in Weight 164 lb 14.492 oz BMI 28.3 BP 141/79 H Blood Pressure Location Lt brachial Position Sitting Pulse 86 Intake Visit Reasons: 4 week follow up Intake Note: Patient returns to in office visit today in 4 weeks follow up diarrhea. CC: Patient was seen in the hospital on 12/09 and admitted for a week with rectal bleeding, vomiting, and abdominal pain. Patient continues to have abdominal pain, and states she feels the same but is tired of going to the hospital. Buffer Inflated Pad Required: Yes Allergies Penicillins [PENICILLINS] Allergy (Intermediate, Verified 01/22/23 10:46) HIVES/SWELLING bupropion [From Wellbutrin] Allergy (Verified 01/22/23 10:46) hives, swelling HPI 4 week follow up HPI Details Assessment & Plan (1) Left lower quadrant pain: Code(s): R10.32 - Left lower quadrant pain Plan: Bangladeshi #Autumn and Carlyn She received the budesinide and it has not changed her sx, she continues with vomiting and diarrhea. She also still has has LLQ pain. At this point, I am out of ideas and will refer her to an MD in our practice for a second opinion. (2) Irritable bowel syndrome with diarrhea: Code(s): K58.0 - Irritable bowel syndrome with diarrhea (3) Clostridioides difficile diarrhea: Comment: Check for signs of toxicity which would come from elevated CBC Code(s): A04.72 - Enterocolitis due to Clostridium difficile, not specified as recurrent (4) GERD (gastroesophageal reflux disease): Code(s): K21.9 - Gastro-esophageal reflux disease without esophagitis Orders: Orders US abdomen complet e 11/14/22 R10.32 - Left lowe r quadrant pain US ABD 12/15/22 FINDINGS: PANCREAS: Visualized portions of the pancreas are unremarkable however portions are obscured by bowel gas limiting evaluation. ABDOMINAL AORTA: The proximal, mid, and distal segments are normal in caliber. INFERIOR VENA CAVA: Visualized portions are normal. LIVER: Normal. The liver is normal in size. The liver contour is normal. Parenchymal echogenicity is normal. No focal hepatic lesion. There is no intrahepatic biliary duct dilatation seen. GALLBLADDER: Normal. The gallbladder is physiologically distended without evidence of stones, sludge, polyps, wall thickening or pericholecystic fluid. COMMON BILE DUCT: Normal in caliber measuring 0.4 cm in diameter. RIGHT KIDNEY: No hydronephrosis or renal calculi. The kidney measures 10.1 cm in maximum dimension. LEFT KIDNEY: Normal. No hydronephrosis. No renal calculi or focal parenchymal lesions. The kidney measures 9.5 cm in maximum dimension. SPLEEN: Normal. The spleen measures 9.9 cm in maximum dimension. FREE FLUID: None. ADDITIONAL FINDINGS: Targeted views of the left lower quadrant are unremarkable. US/US abdomen complete IMPRESSION: No acute findings to explain symptoms of abdominal pain. REVIEW OF INPATIENT SUMMARY Patient is a 57 year with history of IBS with diarrhea, colitis, GERD, sigmoid diverticulitis, migraines headaches who presents from home accompanied by her sister and granddaughter who presents to the emergency room from home complaining of LLQ abdominal pain since around 11 am this ,morning shortly after eating a sandwich for breakfast. Pain was preceded by several episodes of non-projectile non-bloody emesis. No associated diarrhea, fevers or chills. She also reports an episode of blood urine but denies any flank pain and has no history of nephrolithiasis. She tried to wait it out for 2 hours but was not getting any better and so presented to the emergency room where initial work up was unrevealing except for urinalysis that showed hematuria. She has required several doses of IV hydromorphone with only modest relief in her symptoms. Admission was requested for pain control. Hospital course 57 YF with IBS with diarrhea, colitis - SUDD, GERD, sigmoid diverticulitis, migraines headaches seen at [facility] on 12/[place]/22 with LLQ abdominal pain since around 11 am on 12/09/22 Pt stated her pain started after she ate a sandwich for breakfast. Pain was preceded by several episodes of non-projectile non-bloody emesis. Minimal relief from pain regimen patient admitted to medical floor for pain control and admitted with a diagnosis of: 1. LLQ abdominal pain likely related to SUDD (symptomatic uncomplicated diverticular disease), patient was treated with analgesics,iv fluids,was seen by Dr. Rg from Gastroenterology she recommend to continue mesalamine, her diet was gradually advance that she is tolerating well,has persistent chronic left lower quadrant pain and intermittent diarrhea but less frequent bowel movements since mesalamine, since patient has no fevers, stable electrolytes and renal function, she is being discharged home with recommendation to follow-up with GI as outpatient, outpatient ID consult for any clinical indication and benefit for fecal microbiota transplantation for C diff colonization in this pt with recurrent diarrhea without apparent C diff infection,, outpatient surgical eval for any surgical intervention. CT ABD AND PELVIS 12/09/22 FINDINGS: LUNG BASES: The visualized lung bases are unremarkable. LIVER, GALLBLADDER, AND BILIARY TREE: The liver is normal in size, shape, and attenuation. No focal hepatic lesion or biliary ductal dilatation is present. The gallbladder is unremarkable with no evidence of radiopaque gallstones, gallbladder wall thickening, or obvious pericholecystic inflammatory changes. PANCREAS: Unremarkable. SPLEEN: Unremarkable. ADRENAL GLANDS: Unremarkable. KIDNEYS AND URETERS: The kidneys are normal in size, shape, and attenuation. No hydronephrosis, hydroureter, or calculi seen. No perinephric stranding. Stable 1.3 cm simple cyst midpole left kidney. No follow-up imaging is recommended for simple renal cyst.. BLADDER: Unremarkable. GASTROINTESTINAL TRACT: No acute changes of bowel.. The previously seen mural wall thickening of the descending colon on CAT scan September 21, 2022 has resolved. There are a few diverticula of the sigmoid colon but no evidence of diverticulitis. The appendix is normal. Small bowel loops and stomach are unremarkable. MESENTERY: No inflammation the mesentery. No free air or free fluid. There are a few shotty subcentimeter lymph nodes in the right lower quadrant but no bulky lymphadenopathy. ABDOMINAL WALL: No significant hernia is appreciated. LYMPH NODES: Normal. VASCULAR: Unremarkable. PELVIC VISCERA: Unremarkable. OSSEOUS STRUCTURES: Unremarkable. CT/CT abdomen pelvis wo IV con IMPRESSION: No acute abnormality CT scan abdomen pelvis. The previously seen mural wall thickening of the descending colon on CAT scan September 21, 2022 has resolved. There are a few diverticula of the sigmoid colon but no evidence of diverticulitis. TODAYS VISIT Bangladeshi #Autumn lIVE She was an inpatient (unknown to me!!) Although the note by Dr. Michelle watson says that the patient improved when she was put on mesalamine the patient adamantly denies this. She is extremely tearful and frustrated saying that she has been sick for 2 years and although she recognizes that I have tried many things and in many ways to help her nothing is working. She is extremely complex patient with a long history and I am somewhat disappointed that she did not follow-up with the physician who saw her as an inpatient. Especially since I was not notified that she was ever in the hospital. However at this point all I can really thing to do is to try her on high dose steroids to see if this makes a difference and increase her Viberzi. Since the physicians seem to think that this was symptomatic uncomplicated diverticular disease, I also think we should refer her again to speak with surgery to see if surgical intervention would be appropriate. ROV 2 weeks. PFSH Medical History Chronic abdominal pain Diverticular disease of colon Irritable bowel syndrome with diarrhea LLQ cramping Colitis Lower abdominal pain GERD (gastroesophageal reflux disease) Left lower quadrant pain Tubular adenoma of colon Sigmoid diverticulitis Acute diverticulitis Diarrhea Diverticulitis Abdominal pain GERD (gastroesophageal reflux disease) Chronic idiopathic constipation Constipation Surgical History History of intestinal surgery History of partial hysterectomy (~09/2006) Hx of hemorrhoidectomy Hx of colonoscopy History of esophagogastroduodenoscopy (EGD) Family History Father Cancer HTN (hypertension) Mother HTN (hypertension) Hyperthyroidism Migraine headache Maternal Grandmother History of breast cancer Paternal Grandmother History of breast cancer Family/Other Colon cancer Paternal Aunt Ovarian cancer Social History Household Members: Family and None Housing: Apartment Are you a primary healthcare management consultant to a significant other at home: No Do you presently have visiting nurse or other home services: No Alcohol intake: never Patient Tobacco Use Status: Never used Tobacco service: No Current occupational status: disabled Current occupational exposures/hazards: No Female Reproductive History Menstrual Age of Menarche: 7 Review of Systems Const Reports fatigue, Denies fever(s), Denies night sweats, Reports poor appetite and Reports weight loss ENT Reports Normal hearing present, Denies dental pain, Denies dysphagia, Denies hearing loss, Denies mouth pain, Denies odynophagia, Denies throat swelling, Denies tongue swelling and Reports other (Dentition adequate) Card Reports no additional complaints Resp Reports no additional complaints GI Reports abdominal pain, Denies melena, Denies bloating, Denies hematochezia, Denies constipation, Reports GI cramping, Denies dysphagia, Denies excessive flatus, Denies early satiety, Reports heartburn, Reports diarrhea, Reports nausea, Denies odynophagia, Reports vomiting and Denies hematemesis Musc Reports back pain Skin/Breast Denies pruritus, Denies lesions, Denies rash and Denies jaundice Neuro Reports Normal hearing present and Denies Abnormal speech present Psych Reports anxiety, Reports depression, Reports irritability and Reports anhedonia Endo Reports fatigue Aller/Immun Denies throat swelling and Denies tongue swelling Physical Exam Vital Signs: Last Vital Signs Pulse 86 12/21/22 08:40 BP 141/79 H 12/21/22 08:40 BMI result Body Mass Index 28.3 Const General: cooperative, well developed, in distress mild, anxious, tired appearing and well groomed Nutritional Appearance: average body habitus Orientation/consciousness: oriented to person, oriented to place and oriented to time Limitations: No language barrier HEENT Head: Yes normocephalic and Yes atraumatic Eyes General: appearance normal, both eyes and all related structures Pupils: Equal, round and reactive pupils present Neck Neck: Yes normal visual inspection and Yes no lymphadenopathy Thyroid: Thyroid normal Resp Effort & Inspection: normal respiratory effort and able to speak in complete sentences Auscultation: clear to auscultation bilaterally Cardio Rate: regular rate Rhythm: regular rhythm Heart sounds: Normal, physiologic split S2 sound present Peripheral pulses: radial pulses present and posterior tibial pulses present GI Inspection: No distended and No Abdominal panniculus present Palpation (GI): Soft to palpation, Tenderness to palpation present (GI) in the LLQ and periumbilically, no guarding, not rigid and No hepatosplenomegaly present Percussion: Yes normal to percussion Auscultation: normal bowel sounds Rectal Exam - Female: deferred Skin General skin exam: no rashes or lesions noted, turgor normal, skin not dry, no jaundice, No spider nevi and no striae Rashes: no rashes Nails: normal Neuro General: oriented to person, oriented to place and oriented to time Cranial nerves: Yes Equal, round and reactive pupils present and Yes Normal hearing present Speech: No Abnormal speech present Extrem General: Yes normal to inspection, No clubbing, No cyanosis and No edema Psych Appearance: grossly normal and well kempt Mental Status: mental status grossly normal Speech and movement: Normal speech and movement present Affect: Labile affect present, Sad affect present and Anxious affect present Attitude: Other attitude/behavior findings present (Psych) Thought process: Normal thought process present and not confabulating Thought content: Normal thought content present Insight: Limited insight present (Psych) Judgement: Limited judgement present (Psych) Assessment & Plan Assessment & Plan (1) Irritable bowel syndrome with diarrhea: Code(s): K58.0 - Irritable bowel syndrome with diarrhea (2) Left lower quadrant pain: Code(s): R10.32 - Left lower quadrant pain Plan Bangladeshi #Autumn lIVE She was an inpatient (unknown to me!!) Although the note by Dr. Michelle watson says that the patient improved when she was put on mesalamine the patient adamantly denies this. She is extremely tearful and frustrated saying that she has been sick for 2 years and although she recognizes that I have tried many things and in many ways to help her nothing is working. She is extremely complex patient with a long history and I am somewhat disappointed that she did not follow-up with the physician who saw her as an inpatient. Especially since I was not notified that she was ever in the hospital. However at this point all I can really thing to do is to try her on high dose steroids to see if this makes a difference and increase her Viberzi. Since the physicians seem to think that this was symptomatic uncomplicated diverticular disease, I also think we should refer her again to speak with surgery to see if surgical intervention would be appropriate. ROV 2 weeks. Medications: New eluxadoline (Viberzi) must administer with a meal/food 75 mg PO BID 60 tabs 3RF K58.0 - Irritable bowel syndrome with diarrhea prednisone 100 mg (2 x 50 mg) PO DAILY 8 tabs 0RF 4 days R10.32 - Left lower quadrant pain Coding Level of Care Code Est Pt Level 3 (68590) Diagnoses Irritable bowel syndrome with diarrhea K58.0 Left lower quadrant pain R10.32
[2022-12-21 08:40] VITALS: BP 141/79; PULSE 86; BMI 28.3
== END 2022-12-21 09:57 | disposition home or self-care (01) ==
PROVIDERS: PCP Internal Medicine; Visit Provider Nurse Practitioner
DX: K58.0 Irritable bowel syndrome with diarrhea (principal); R10.32 Left lower quadrant pain
CPT/HCPCS: 99213

== ENCOUNTER → 2022-12-21 08:30 | Outpatient (BNVA) | payer MEDICAID, SELFPAY | PROVIDERS: PCP Internal Medicine; Visit Provider Nurse Practitioner | DX: K58.0 Irritable bowel syndrome with diarrhea (principal); R10.32 Left lower quadrant pain | CPT/HCPCS: 99212 ==

== ENCOUNTER 2023-01-04 08:35 | Outpatient (AMB) | payer MEDICAID, SELFPAY ==
[2023-01-04 08:37] VITALS: BP 110/74; PULSE 82; BMI 28.5
--- NOTE | 2023-01-04 08:37 | A.OFFVIS_ITS ---
Intake Vital Signs 01/04/23 08:37 Height 5 ft 4 in Weight 165 lb 12.602 oz BMI 28.5 BP 110/74 Blood Pressure Location Rt brachial Position Sitting Pulse 82 Intake Visit Reasons: 2 week follow up SUDD, diarrhea N/V Intake Note: Patient returns to in office visit today in 2 weeks follow up SUDD, diarrhea, N/V. CC: Patient reports she continues having rectal bleeding, vomiting, and abdominal pain and diarrhea. She states that she did not have any improvement with Viberzi. 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 Assessment & Plan (1) Irritable bowel syndrome with diarrh ea: Code(s): K58.0 - Irritable bowel syndrome with diarrhea (2) Left lower quadrant pain: Code(s): R10.32 - Left lower quadrant pain Medications: New eluxadoline (Viber zi) must admini ster with a meal/f ood 75 mg PO BID 60 ta bs 3RF K58.0 - Irritable bowel syndrome wit h diarrhea prednisone 100 mg (2 x 50 mg) PO DAILY 8 tabs 0 RF 4 days R10.32 - Left lowe r quadrant pain REVIEW OF MY NOTE FROM 11/14/2022 She was admitted after seeing Dr. Veliz via the ER and the presumptive dx was c diff. HOwever, she had many rounds of abx and absolutely no improvement. Also, the toxins were neg so this may just be colonization. She just completed difficid, and had an ID consults as well. She still has diarrhea at least 15 times a day, stomach pain, N/V and weight loss. She is really suffering! She has stopped taking all medications since none have helped including her bentyl, lotronex, loperimide and pantoprazole. I will try to approach this from the angle of the inflammation, fecal calprotectins neg in past, will try budesinide (which she never tried) and see how she reacts. IF positive then consider re presenting this it Dr. Veliz for surgery. If not, consider stool samples etc and referral out. ? stool transplant. May consider repeat US (has had many CT's.......). ROV 2 weeks. TODAYS VISIT Taiwanese #Zenobia Live No better with prednisone challange or VIberzi 75mg, will increase dose to 100mg bid. She is very tearful which is to be expected. She feels very badly but is free to go to the ER even though she is having trouble maintaining her fluid balance with severe diarrhea. Her mouth appears quite dry. She really hope for better news in terms of a surgical solution since we seem disease Pierre all of her medical options. I walked her over to General surgery and we get an appointment for her to see Dr. Veliz at 02:15. Hopefully he will have some input into the situation. I want to see her in 2 weeks to evaluate the Viberzi. [facility] Medical History (Updated 01/04/23 @ 14:19 by Fritz Veliz MD) Chronic abdominal pain Diverticular disease of colon Irritable bowel syndrome with diarrhea LLQ cramping Colitis Lower abdominal pain GERD (gastroesophageal reflux disease) Left lower quadrant pain Tubular adenoma of colon Sigmoid diverticulitis Acute diverticulitis Diarrhea Diverticulitis Abdominal pain GERD (gastroesophageal reflux disease) Chronic idiopathic constipation Constipation Surgical History History of intestinal surgery History of partial hysterectomy (~09/2006) Hx of hemorrhoidectomy Hx of colonoscopy History of esophagogastroduodenoscopy (EGD) Family History Father Cancer HTN (hypertension) Mother HTN (hypertension) Hyperthyroidism Migraine headache Maternal Grandmother History of breast cancer Paternal Grandmother History of breast cancer Family/Other Colon cancer Paternal Aunt Ovarian cancer Social History Household Members: Family and None Housing: Apartment Are you a primary manager of care to a significant other at home: No Do you presently have visiting nurse or other home services: No Alcohol intake: never Patient Tobacco Use Status: Never used Tobacco service: No Current occupational status: disabled Current occupational exposures/hazards: No Female Reproductive History Menstrual Age of Menarche: 7 Review of Systems Const Denies fatigue, Denies fever(s), Denies night sweats, Reports poor appetite and Reports weight loss Eyes Details: Classes Reports requires corrective lenses ENT Reports Normal hearing present, Denies dental pain, Denies dysphagia, Denies hearing loss, Denies mouth pain, Denies odynophagia, Denies throat swelling, Denies tongue swelling and Reports other (Dentition adequate) Card Reports no additional complaints Resp Reports no additional complaints GI Reports abdominal pain, Denies melena, Denies bloating, Denies hematochezia, Denies constipation, Denies GI cramping, Denies dysphagia, Denies excessive flatus, Denies early satiety, Reports heartburn, Reports diarrhea, Reports nausea, Denies odynophagia, Denies vomiting and Denies hematemesis Skin/Breast Denies pruritus, Denies lesions, Denies rash and Denies jaundice Neuro Reports Normal hearing present and Denies Abnormal speech present Endo Denies fatigue Aller/Immun Denies throat swelling and Denies tongue swelling Physical Exam Vital Signs: Last Vital Signs Pulse 82 01/04/23 08:37 BP 110/74 01/04/23 08:37 BMI result Body Mass Index 28.5 Const General: cooperative, no acute distress, well developed and well groomed Nutritional Appearance: average body habitus and well nourished Orientation/consciousness: oriented to person, oriented to place and oriented to time Limitations: language barrier HEENT Head: Yes normocephalic and Yes atraumatic Eyes General: appearance normal, both eyes and all related structures Pupils: Equal, round and reactive pupils present Neck Neck: Yes normal visual inspection and Yes no lymphadenopathy Thyroid: Thyroid normal Resp Effort & Inspection: normal respiratory effort and able to speak in complete sentences Auscultation: clear to auscultation bilaterally Cardio Rate: regular rate Rhythm: regular rhythm Heart sounds: Normal, physiologic split S2 sound present Peripheral pulses: radial pulses present and posterior tibial pulses present GI Inspection: No distended and No Abdominal panniculus present Palpation (GI): Soft to palpation, Tenderness to palpation present (GI) in the LLQ, no guarding, not rigid and No hepatosplenomegaly present Percussion: Yes normal to percussion Auscultation: normal bowel sounds Rectal Exam - Female: deferred Skin General skin exam: no rashes or lesions noted, turgor normal, skin not dry, no jaundice, No spider nevi and no striae Rashes: no rashes Nails: normal Neuro General: oriented to person, oriented to place and oriented to time Cranial nerves: Yes Equal, round and reactive pupils present and Yes Normal hearing present Speech: No Abnormal speech present Extrem General: Yes normal to inspection, No clubbing, No cyanosis and No edema Psych Appearance: grossly normal and well kempt Mental Status: mental status grossly normal Speech and movement: Normal speech and movement present Affect: Sad affect present and Depressed mood present Attitude: cooperative Thought process: Normal thought process present and not confabulating Thought content: Normal thought content present and suicidality Insight: Fair insight present (Psych) Judgement: Fair judgement present (Psych) Assessment & Plan Assessment & Plan (1) Left lower quadrant pain: Code(s): R10.32 - Left lower quadrant pain Plan: [place]ese Rajan Live No better with prednisone challange or VIberzi 75mg, will increase dose to 100mg bid. She is very tearful which is to be expected. She feels very badly but is free to go to the ER even though she is having trouble maintaining her fluid balance with severe diarrhea. Her mouth appears quite dry. She really hope for better news in terms of a surgical solution since we seem disease Pierre all of her medical options. I walked her over to General surgery and we get an appointment for her to see Dr. Veliz at 02:15. Hopefully he will have some input into the situation. I want to see her in 2 weeks to evaluate the Viberzi. (2) Tubular adenoma of colon: Comment: 2022 scope= 1 TA repeat 3-4 years due to fair left sided prep Code(s): D12.6 - Benign neoplasm of colon, unspecified (3) Clostridioides difficile diarrhea: Comment: Check for signs of toxicity which would come from elevated CBC Code(s): A04.72 - Enterocolitis due to Clostridium difficile, not specified as recurrent (4) Irritable bowel syndrome with diarrhea: Code(s): K58.0 - Irritable bowel syndrome with diarrhea (5) Diverticular disease of colon: Comment: ? SUDD Code(s): K57.30 - Diverticulosis of large intestine without perforation or abscess without bleeding Plan [place]ese Rajan Live No better with prednisone challange or VIberzi 75mg, will increase dose to 100mg bid. She is very tearful which is to be expected. She feels very badly but is free to go to the ER even though she is having trouble maintaining her fluid balance with severe diarrhea. Her mouth appears quite dry. She really hope for better news in terms of a surgical solution since we seem disease Pierre all of her medical options. I walked her over to General surgery and we get an appointment for her to see Dr. Veliz at 02:15. Hopefully he will have some input into the situation. I want to see her in 2 weeks to evaluate the Viberzi. Orders: Referrals General Surgery Referral K57.30 - Diverticulosis of large intestine without perforation or abscess without bleeding Medications: New eluxadoline (Viberzi) must administer with a meal/food 100 mg PO BID 60 tabs 5RF Discontinued eluxadoline (Viberzi) must administer with a meal/food Discontinued Reason: Doctor's Order 75 mg PO BID 60 tabs 3RF K58.0 - Irritable bowel syndrome with diarrhea Coding Level of Care Code Est Pt Level 3 (24015) Diagnoses Left lower quadrant pain R10.32 Tubular adenoma of colon D12.6 Clostridioides difficile diarrhea A04.72 Irritable bowel syndrome with diarrhea K58.0 Diverticular disease of colon K57.30
== END 2023-01-04 09:08 | disposition home or self-care (01) ==
PROVIDERS: PCP Internal Medicine; Visit Provider Nurse Practitioner
DX: R10.32 Left lower quadrant pain (principal); Z86.010 Personal history of colon polyps; A04.72 Enterocolitis due to Clostridium difficile, not specified as recurrent; K57.30 Diverticulosis of large intestine without perforation or abscess without bleeding
CPT/HCPCS: 99213

== ENCOUNTER → 2023-01-04 08:35 | Outpatient (BNVA) | payer MEDICAID, SELFPAY | PROVIDERS: PCP Internal Medicine; Visit Provider Nurse Practitioner | DX: R19.7 Diarrhea, unspecified (principal); G89.29 Other chronic pain; R10.32 Left lower quadrant pain; D12.6 Benign neoplasm of colon, unspecified; A04.72 Enterocolitis due to Clostridium difficile, not specified as recurrent; K58.0 Irritable bowel syndrome with diarrhea; K57.30 Diverticulosis of large intestine without perforation or abscess without bleeding | CPT/HCPCS: 99212 ==

== ENCOUNTER 2023-01-04 13:29 | Outpatient (AMB) | payer MEDICAID, SELFPAY ==
--- NOTE | 2023-01-04 13:33 | MHC.OFFVIS ---
Intake Vital Signs 01/04/23 13:51 Height 5 ft 4 in Weight 165 lb 12.602 oz BMI 28.5 BP 145/73 H Blood Pressure Location Rt brachial Position Sitting Pulse 86 Intake Visit Reasons: diverticulitis Intake Note: This patient presents for an assessment for diverticulitis. Patient c/o; reports abdominal pain, reports vomiting, reports diarrhea, reports loss of appetite, reports rectal bleeding. Commercial Artist Lettering Required: Yes Commercial Artist Lettering Language: Basic Acoustic Analyst Name: Ihsan Information Interpreted: non-clinical & clinical Accompanied by: Self / Same As Patient Allergies Penicillins [PENICILLINS] Allergy (Intermediate, Verified 01/04/23 13:53) HIVES/SWELLING bupropion [From Wellbutrin] Allergy (Verified 01/04/23 13:53) hives, swelling Medication List - Last Reconciled 01/04/23 by Fritz Veliz MD aripiprazole 15 mg PO DAILY buspirone 15 mg PO BID cholecalciferol (vitamin D3) 25 mcg PO DAILY eluxadoline (Viberzi) 100 mg PO BID galcanezumab-gnlm (Emgality Pen) 120 mg subcut Q4W lisinopril 20 mg PO DAILY loperamide 2 mg PO Q6H PRN mesalamine (Delzicol) 800 mg (2 x 400 mg) PO TID metoprolol tartrate 25 mg PO BID nortriptyline 100 mg PO BEDTIME ondansetron 4 mg PO TID PRN 5 days sumatriptan succinate 100 mg PO DAILY PRN zolpidem ER 12.5 mg PO BEDTIME PRN HPI diverticulitis HPI Details She is here for follow-up for chronic left lower quadrant pain. I had seen her and admitted her last January, for this with the impression of diverticulitis She has had multiple and recurring episodes of pain and diarrhea. She has had CT scans throughout the year which do not strongly suggest diverticulitis. The last 1 was done about 3 weeks ago She she has significant diarrhea as well described as multiple bowel movements every day. She says that she has frequent lower abdominal pain. She says that she has been getting depressed with this She has been closely following the gastroenterology service. She had been treated for C diff colitis about 4 months ago and is currently on mesalamine as well for a question of IBD. She feels that she has not gotten well at all over the year. She also has known hemorrhoids and this would occasionally bleed with her diarrhea. [facility] Medical History (Updated 01/04/23 @ 14:19 by Fritz Veliz MD) Chronic abdominal pain Diverticular disease of colon Irritable bowel syndrome with diarrhea LLQ cramping Colitis Lower abdominal pain GERD (gastroesophageal reflux disease) Left lower quadrant pain Tubular adenoma of colon Sigmoid diverticulitis Acute diverticulitis Diarrhea Diverticulitis Abdominal pain GERD (gastroesophageal reflux disease) Chronic idiopathic constipation Constipation Surgical History History of intestinal surgery History of partial hysterectomy (~09/2006) Hx of hemorrhoidectomy Hx of colonoscopy History of esophagogastroduodenoscopy (EGD) Family History Father Cancer HTN (hypertension) Mother HTN (hypertension) Hyperthyroidism Migraine headache Maternal Grandmother History of breast cancer Paternal Grandmother History of breast cancer Family/Other Colon cancer Paternal Aunt Ovarian cancer Social History Household Members: Family and None Housing: Apartment Are you a primary landcare officer to a significant other at home: No Do you presently have visiting nurse or other home services: No Alcohol intake: never Patient Tobacco Use Status: Never used Tobacco service: No Current occupational status: disabled Current occupational exposures/hazards: No Female Reproductive History Menstrual Age of Menarche: 7 Review of Systems Const Denies chills and Denies fever(s) Card Denies chest pain, Denies dyspnea and Denies dyspnea on exertion Resp Denies cough, Denies dyspnea and Denies dyspnea on exertion GI Reports hematochezia, Denies change in bowel habits and Reports diarrhea Denies hematuria Musc Denies back pain and Denies limited range of motion Neuro Denies focal weakness and Denies convulsions Psych Reports depression and Denies mood swings Physical Exam Vital Signs: Last Vital Signs Pulse 86 01/04/23 13:51 BP 145/73 H 01/04/23 13:51 BMI result Body Mass Index 28.5 Const General: comfortable and no acute distress Orientation/consciousness: patient oriented x3 Neck Neck: Yes no lymphadenopathy Resp Auscultation: clear to auscultation bilaterally Cardio Rhythm: regular rhythm GI Palpation (GI): Soft to palpation, nontender and no guarding Neuro General: patient oriented x3 Assessment & Plan Assessment & Plan (1) Diarrhea: Code(s): R19.7 - Diarrhea, unspecified Plan: I have ordered for stool C diff for her. (2) Chronic abdominal pain: Code(s): R10.9 - Unspecified abdominal pain; G89.29 - Other chronic pain Plan: She has had this chronic abdominal pain mostly in lower abdomen. She is being followed closely by her the gastroenteritis and is currently on mesalamine. Her recent CT scans do not seem to suggest diverticulitis. The exact etiology at this time is therefore uncertain I told her that we will recheck her stools for C diff. I will see her again in the office in about 3 weeks to see how she is doing. I emphasized to her that she needs to be closely followed by the gastroenterology service as well. I explained to her that at this time, it is uncertain if diverticular disease is the etiology of her neck complaints. I therefore told her that I would not recommend proceeding with sigmoid resection for now but we will definitely follow her closely in the office. Her current exam is benign. Orders: Orders CDiff Gene PCR Today R19.7 - Diarrhea, unspecified Coding Level of Care Code Est Pt Level 4 (24122) Diagnoses Diarrhea R19.7 Chronic abdominal pain R10.9; G89.29
[2023-01-04 13:51] VITALS: BP 145/73; PULSE 86; BMI 28.5
== END 2023-01-04 14:16 | disposition home or self-care (01) ==
PROVIDERS: PCP Internal Medicine; Visit Provider Surgery
DX: R19.7 Diarrhea, unspecified (principal); R10.9 Unspecified abdominal pain; G89.29 Other chronic pain
CPT/HCPCS: 99214

== ENCOUNTER 2023-01-09 11:46 | Outpatient (REF) | payer MEDICAID, SELFPAY ==
[2023-01-09 13:07] LABS: CDiff Gene PCR POSITIVE (Negative)
[2023-01-09 13:47] LABS: CDIFF Internal ctrl Dots and bkg OK (V); CDiff Toxin Negative (Negative)
== END 2023-01-09 11:47 | disposition home or self-care (01) ==
LOC: HO.LNP 11:46
PROVIDERS: Visit Provider Surgery
DX: K57.92 Diverticulitis of intestine, part unspecified, without perforation or abscess without bleeding (principal); K58.0 Irritable bowel syndrome with diarrhea; R10.9 Unspecified abdominal pain
CPT/HCPCS: 87324; 87493

== ENCOUNTER 2023-01-19 08:07 | Outpatient (AMB) | payer MEDICAID, SELFPAY ==
--- NOTE | 2023-01-19 08:20 | MHC.OFFVIS ---
Intake Vital Signs 01/19/23 08:28 Height 5 ft 4 in Weight 164 lb 0.383 oz BMI 28.2 BP 135/61 Blood Pressure Location Lt brachial Position Sitting Pulse 91 Pulse Source Pulse Oximeter Intake Visit Reasons: 2 week follow up Intake Note: Pt presents to the office today for a 2 week follow up. Pt states she feels as bad as her last visit here. Pt states she has diarrhea everyday multiple times a day and states she vomits about 5 times every day. Pt states she has severe stomach pain. Allergies Penicillins [PENICILLINS] Allergy (Intermediate, Verified 01/19/23 08:30) HIVES/SWELLING bupropion [From Wellbutrin] Allergy (Verified 01/19/23 08:30) hives, swelling HPI 2 week follow up HPI Details Assessment & Plan (1) Left lower quadrant pain: Code(s): R10.32 - Left lower quadrant pain Plan: Keisha Tolentino Live No better with prednisone challange or VIberzi 75mg, will increase dose to 100mg bid. She is very tearful which is to be expected. She feels very badly but is free to go to the ER even though she is having trouble maintaining her fluid balance with severe diarrhea. Her mouth appears quite dry. She really hope for better news in terms of a surgical solution since we seem disease Pierre all of her medical options. I walked her over to General surgery and we get an appointment for her to see Dr. Veliz at 02:15. Hopefully he will have some input into the situation. I want to see her in 2 weeks to evaluate the Viberzi. (2) Tubular adenoma of colon: Comment: 2022 scope= 1 TA repeat 3-4 years due to fair left sided prep Code(s): D12.6 - Benign neoplasm of colon, unspecified (3) Clostridioides difficile diarrhea: Comment: Check for signs of toxicity which would come from elevated CBC Code(s): A04.72 - Enterocolitis due to Clostridium difficile, not specified as recurrent (4) Irritable bowel syndrome with diarrhea: Code(s): K58.0 - Irritable bowel syndrome with diarrhea (5) Diverticular disease of colon: Comment: ? SUDD Code(s): K57.30 - Diverticulosis of large intestine without perforation or abscess without bleeding Plan Keisha Tolentino Live No better with prednisone challange or VIberzi 75mg, will increase dose to 100mg bid. She is very tearful which is to be expected. She feels very badly but is free to go to the ER even though she is having trouble maintaining her fluid balance with severe diarrhea. Her mouth appears quite dry. She really hope for better news in terms of a surgical solution since we seem disease Pierre all of her medical options. I walked her over to General surgery and we get an appointment for her to see Dr. Veliz at 02:15. Hopefully he will have some input into the situation. I want to see her in 2 weeks to evaluate the Viberzi. Orders: Referrals General Surgery Re ferral K57.30 - Diverticu losis of large int estine without per foration or absces s without bleeding Medications: New eluxadoline (Viber zi) must admini ster with a meal/f ood 100 mg PO BID 60 tabs 5RF Discontinued eluxadoline (Viber zi) must admini ster with a meal/f ood Discontinue d Reason: Doctor' s Order 75 mg PO BID 60 t abs 3RF K58.0 - Irritable bowel syndrome wit h diarrhea US ABD 12/15/22 FINDINGS: PANCREAS: Visualized portions of the pancreas are unremarkable however portions are obscured by bowel gas limiting evaluation. ABDOMINAL AORTA: The proximal, mid, and distal segments are normal in caliber. INFERIOR VENA CAVA: Visualized portions are normal. LIVER: Normal. The liver is normal in size. The liver contour is normal. Parenchymal echogenicity is normal. No focal hepatic lesion. There is no intrahepatic biliary duct dilatation seen. GALLBLADDER: Normal. The gallbladder is physiologically distended without evidence of stones, sludge, polyps, wall thickening or pericholecystic fluid. COMMON BILE DUCT: Normal in caliber measuring 0.4 cm in diameter. RIGHT KIDNEY: No hydronephrosis or renal calculi. The kidney measures 10.1 cm in maximum dimension. LEFT KIDNEY: Normal. No hydronephrosis. No renal calculi or focal parenchymal lesions. The kidney measures 9.5 cm in maximum dimension. SPLEEN: Normal. The spleen measures 9.9 cm in maximum dimension. FREE FLUID: None. ADDITIONAL FINDINGS: Targeted views of the left lower quadrant are unremarkable. US/US abdomen complete IMPRESSION: No acute findings to explain symptoms of abdominal pain. CORRESPONDENCE On 01/10/23 @ 15:40 Fritz Veliz Wrote To Daiana Pastor she may need to be arranged for fecal transplant if abx are not working. She has diarrhea c/w C diff infection. On 01/10/23 @ 14:38 Daiana Pastor Wrote To Fritz Veliz This result is indicative of c diff colonization, not an active infection that would respond to abx.AND she has failed mutiple rounds of presumptive antibiotics so this is not a valid course of action. On 01/10/23 @ 08:20 Fritz Veliz Wrote To Daiana Pastor Checked her stools - still C diff positive. Can you prescribe appropriate tx? Thanks On 01/11/23 @ 08:12 Fritz Veliz Wrote To Daiana Pastor Fritz Veliz removed from item. TODAYS VISIT French #Juanito Edwards Has appt with Dr. Sheehan in Mar. Only other thing I can think of is a vascular study, hopefully and US since she has had 8 CT scans over the past year. ROV in April, keep appt with Dr. Sheehan and Dr. Veliz. [facility] Medical History Chronic abdominal pain Diverticular disease of colon Irritable bowel syndrome with diarrhea LLQ cramping Colitis Lower abdominal pain GERD (gastroesophageal reflux disease) Left lower quadrant pain Tubular adenoma of colon Sigmoid diverticulitis Acute diverticulitis Diarrhea Diverticulitis Abdominal pain GERD (gastroesophageal reflux disease) Chronic idiopathic constipation Constipation Surgical History History of intestinal surgery History of partial hysterectomy (~09/2006) Hx of hemorrhoidectomy Hx of colonoscopy History of esophagogastroduodenoscopy (EGD) Family History Father Cancer HTN (hypertension) Mother HTN (hypertension) Hyperthyroidism Migraine headache Maternal Grandmother History of breast cancer Paternal Grandmother History of breast cancer Family/Other Colon cancer Paternal Aunt Ovarian cancer Social History Household Members: Family and None Housing: Apartment Are you a primary neonatal critical care nurse to a significant other at home: No Do you presently have visiting nurse or other home services: No Alcohol intake: never Patient Tobacco Use Status: Never used Tobacco service: No Current occupational status: disabled Current occupational exposures/hazards: No Female Reproductive History Menstrual Age of Menarche: 7 Review of Systems Const Denies fatigue, Denies fever(s), Denies night sweats, Denies poor appetite and Denies weight loss ENT Reports Normal hearing present, Denies dental pain, Denies dysphagia, Denies hearing loss, Denies mouth pain, Denies odynophagia, Denies throat swelling, Denies tongue swelling and Reports other (Dentition adequate) Card Reports no additional complaints Resp Reports no additional complaints GI Reports abdominal pain, Denies melena, Reports bloating, Denies hematochezia, Denies constipation, Reports GI cramping, Denies dysphagia, Denies excessive flatus, Denies early satiety, Reports heartburn, Reports diarrhea, Denies nausea, Denies odynophagia, Denies vomiting and Denies hematemesis Skin/Breast Denies pruritus, Denies lesions, Denies rash and Denies jaundice Neuro Reports Normal hearing present and Denies Abnormal speech present Endo Denies fatigue Aller/Immun Denies throat swelling and Denies tongue swelling Physical Exam Vital Signs: Last Vital Signs Pulse 91 01/19/23 08:28 BP 135/61 01/19/23 08:28 BMI result Body Mass Index 28.2 Const General: cooperative, no acute distress, well developed and well groomed Nutritional Appearance: average body habitus and well nourished Orientation/consciousness: oriented to person, oriented to place and oriented to time Limitations: language barrier HEENT Head: Yes normocephalic and Yes atraumatic Eyes General: appearance normal, both eyes and all related structures Pupils: Equal, round and reactive pupils present Neck Neck: Yes normal visual inspection and Yes no lymphadenopathy Thyroid: Thyroid normal Resp Effort & Inspection: normal respiratory effort and able to speak in complete sentences Auscultation: clear to auscultation bilaterally Cardio Rate: regular rate Rhythm: regular rhythm Heart sounds: Normal, physiologic split S2 sound present Peripheral pulses: radial pulses present and posterior tibial pulses present GI Inspection: No distended and No Abdominal panniculus present Palpation (GI): Soft to palpation, Tenderness to palpation present (GI) in the LLQ and in the LUQ, no guarding, not rigid and No hepatosplenomegaly present Percussion: Yes normal to percussion Auscultation: normal bowel sounds Rectal Exam - Female: deferred Skin General skin exam: no rashes or lesions noted, turgor normal, skin not dry, no jaundice, No spider nevi and no striae Rashes: no rashes Nails: normal Neuro General: oriented to person, oriented to place and oriented to time Cranial nerves: Yes Equal, round and reactive pupils present and Yes Normal hearing present Speech: No Abnormal speech present Extrem General: Yes normal to inspection, No clubbing, No cyanosis and No edema Psych Appearance: grossly normal and well kempt Mental Status: mental status grossly normal Speech and movement: Normal speech and movement present Affect: normal affect Attitude: cooperative Thought process: Normal thought process present and not confabulating Thought content: Normal thought content present Insight: Limited insight present (Psych) Judgement: Limited judgement present (Psych) Assessment & Plan Assessment & Plan (1) Chronic abdominal pain: Code(s): R10.9 - Unspecified abdominal pain; G89.29 - Other chronic pain (2) Irritable bowel syndrome with diarrhea: Code(s): K58.0 - Irritable bowel syndrome with diarrhea Plan French #Grace, Live Has appt with Dr. Sheehan in Mar. Only other thing I can think of is a vascular study, hopefully and US since she has had 8 CT scans over the past year. ROV in April, keep appt with Dr. Sheehan and Dr. Veliz. Orders: Orders US [facility] Today G89.29 - Other chronic pain, K58.0 - Irritable bowel syndrome with diarrhea, R10.9 - Unspecified abdominal pain Coding Level of Care Code Est Pt Level 3 (90873) Diagnoses Chronic abdominal pain R10.9; G89.29 Irritable bowel syndrome with diarrhea K58.0
[2023-01-19 08:28] VITALS: BP 135/61; PULSE 91; BMI 28.2
== END 2023-01-19 09:09 | disposition home or self-care (01) ==
PROVIDERS: PCP Internal Medicine; Visit Provider Nurse Practitioner
DX: R10.9 Unspecified abdominal pain (principal); G89.29 Other chronic pain; K58.0 Irritable bowel syndrome with diarrhea
CPT/HCPCS: 99213

== ENCOUNTER → 2023-01-19 08:07 | Outpatient (BNVA) | payer MEDICAID, SELFPAY | PROVIDERS: PCP Internal Medicine; Visit Provider Nurse Practitioner | DX: K58.0 Irritable bowel syndrome with diarrhea (principal); R10.9 Unspecified abdominal pain; G89.29 Other chronic pain | CPT/HCPCS: 99212 ==

== ENCOUNTER 2023-01-22 10:16 | Outpatient (AMB) | payer MEDICAID, SELFPAY ==
--- NOTE | 2023-01-22 10:27 | A.OFFVIS_ITS ---
Intake Vital Signs 01/22/23 10:33 Height 5 ft 4 in Weight 166 lb 10.711 oz BMI 28.6 BP 109/59 L Blood Pressure Location Rt brachial Position Sitting Pulse 69 Intake Visit Reasons: 1 month diverticulitis Intake Note: This patient presents for a three week follow-up assessment for diverticulitis. Pt c/o; reports feels the same and no improvements. Gl Accountant Required: Yes Gl Accountant Language: Photolettering Machine Operator Name: Ihsan Information Interpreted: non-clinical & clinical Accompanied by: Self / Same As Patient Allergies Penicillins [PENICILLINS] Allergy (Intermediate, Verified 01/22/23 10:46) HIVES/SWELLING bupropion [From Wellbutrin] Allergy (Verified 01/22/23 10:46) hives, swelling Medication List - Last Reconciled 01/22/23 by Fritz Veliz MD aripiprazole 15 mg PO DAILY buspirone 15 mg PO BID cholecalciferol (vitamin D3) 25 mcg PO DAILY eluxadoline (Viberzi) 100 mg PO BID galcanezumab-gnlm (Emgality Pen) 120 mg subcut Q4W lisinopril 20 mg PO DAILY loperamide 2 mg PO Q6H PRN mesalamine (Delzicol) 800 mg (2 x 400 mg) PO TID metoprolol tartrate 25 mg PO BID nortriptyline 100 mg PO BEDTIME ondansetron 4 mg PO TID PRN 5 days sumatriptan succinate 100 mg PO DAILY PRN zolpidem ER 12.5 mg PO BEDTIME PRN HPI 1 month diverticulitis HPI Details She continues to diarrhea and lower abdominal pain. She says that she has about over 10 bowel movements every day and this is always watery. She also notices small amounts of bright blood on wiping as well. She has good oral intake otherwise. She feels that her condition is ?unchanged?. She denies any fever or chills. [facility] Medical History Chronic abdominal pain Diverticular disease of colon Irritable bowel syndrome with diarrhea LLQ cramping Colitis Lower abdominal pain GERD (gastroesophageal reflux disease) Left lower quadrant pain Tubular adenoma of colon Sigmoid diverticulitis Acute diverticulitis Diarrhea Diverticulitis Abdominal pain GERD (gastroesophageal reflux disease) Chronic idiopathic constipation Constipation Surgical History History of intestinal surgery History of partial hysterectomy (~09/2006) Hx of hemorrhoidectomy Hx of colonoscopy History of esophagogastroduodenoscopy (EGD) Family History Father Cancer HTN (hypertension) Mother HTN (hypertension) Hyperthyroidism Migraine headache Maternal Grandmother History of breast cancer Paternal Grandmother History of breast cancer Family/Other Colon cancer Paternal Aunt Ovarian cancer Social History Household Members: Family and None Housing: Apartment Are you a primary foster care therapist to a significant other at home: No Do you presently have visiting nurse or other home services: No Alcohol intake: never Patient Tobacco Use Status: Never used Tobacco service: No Current occupational status: disabled Current occupational exposures/hazards: No Female Reproductive History Menstrual Age of Menarche: 7 Review of Systems Const Denies chills and Denies fever(s) Card Denies chest pain, Denies dyspnea and Denies dyspnea on exertion Resp Denies cough, Denies dyspnea and Denies dyspnea on exertion GI Reports hematochezia, Denies change in bowel habits and Reports diarrhea Denies hematuria Musc Denies back pain and Denies limited range of motion Neuro Denies focal weakness and Denies convulsions Psych Denies depression and Denies mood swings Physical Exam Vital Signs: Last Vital Signs Pulse 69 01/22/23 10:33 BP 109/59 L 01/22/23 10:33 BMI result Body Mass Index 28.6 Const General: comfortable and no acute distress Resp Effort & Inspection: normal respiratory effort Cardio Rate: regular rate GI Palpation (GI): Soft to palpation, not firm and no guarding Assessment & Plan Assessment & Plan (1) Clostridioides difficile diarrhea: Comment: Check for signs of toxicity which would come from elevated CBC Code(s): A04.72 - Enterocolitis due to Clostridium difficile, not specified as recurrent Plan: She has had C diff colitis that has not responded to multiple rounds of antibiotics. I had again a long discussion with her about the option of proceeding with fecal microbiota transplant. I explained to her the technique and the benefit of this treatment. I told her this would be the next step in view of her on response to multiple rounds of oral antibiotics with persistent diarrhea. She is very hesitant about the idea of fecal microbiota transplant. I explained to her that stool daughters are rigorously screened, and that stool samples are fully tested prior to transplantation. This can be done as a pill, by the endoscopy/ colonoscopy or by enemas. She still does not want to do this at this time. I told her that we will arrange for this on our end. She says she will think about it at home She also has a diagnosis of diverticular disease. Recent CT scan soon as show acute diverticulitis at this time. I would not recommend any colon resection at this point view of her C diff positive tests. Coding Level of Care Code Est Pt Level 3 (59833) Diagnoses Clostridioides difficile diarrhea A04.72
[2023-01-22 10:33] VITALS: BP 109/59; PULSE 69; BMI 28.6
== END 2023-01-22 10:47 | disposition home or self-care (01) ==
PROVIDERS: PCP Internal Medicine; Visit Provider Surgery
DX: A04.72 Enterocolitis due to Clostridium difficile, not specified as recurrent (principal)
CPT/HCPCS: 99213

== ENCOUNTER → 2023-01-22 10:16 | Outpatient (BNVA) | payer MEDICAID, SELFPAY | PROVIDERS: PCP Internal Medicine; Visit Provider Surgery | DX: A04.72 Enterocolitis due to Clostridium difficile, not specified as recurrent (principal) | CPT/HCPCS: 99212 ==

== ENCOUNTER 2023-02-02 10:37 | Outpatient (REF) | payer MEDICAID, SELFPAY ==
--- NOTE | ~2023-02-02 | MM_ITS ---
EXAMINATION: MM SCREENING DIGITAL BREAST TOMOSYNTHESIS, BILATERAL CLINICAL INFORMATION: Screening. Asymptomatic. COMPARISON: Mammography: 02/01/2022, 01/26/2021, and studies dating back to 12/30/2014. TECHNIQUE: Digital breast tomosynthesis is performed in both the craniocaudal and mediolateral oblique views along with computer-aided detection (CAD). Synthesized 2D images are generated from the tomosynthesis. FINDINGS: There are scattered areas of fibroglandular density (ACR BI-RADS breast composition Category b). Asymmetric density about the mid superior aspect of the right breast again evident and is stable. In the far lateral inferior right breast, there is a circumscribed oval mass with regions of fat contained within, possibly a region of fat necrosis or hamartoma. This is stable. There are no suspicious masses, suspicious grouped calcifications, or areas of architectural distortion in either breast. The parenchymal pattern is stable from prior exams. MM/MM tomosynthesis screening BI IMPRESSION: No mammographic evidence of malignancy. Stable benign findings. ASSESSMENT: BI-RADS BI-RADS 2 - Benign Findings RECOMMENDATION: Routine annual mammography screening. 1 year F/U This examination should not preclude the clinical evaluation of a suspicious palpable abnormality. This patient's information was entered into a reminder system with a target due date for their next mammogram.
== END 2023-02-02 10:38 | disposition home or self-care (01) ==
LOC: HO.MAMMO 10:37
PROVIDERS: Visit Provider Internal Medicine
DX: Z12.31 Encounter for screening mammogram for malignant neoplasm of breast (principal)
CPT/HCPCS: 77063; 77067

== ENCOUNTER → 2023-02-02 11:00 | Outpatient (BNV) | payer MEDICAID, SELFPAY | PROVIDERS: Visit Provider Radiology Diagnostic Radiology | DX: Z12.31 Encounter for screening mammogram for malignant neoplasm of breast (principal) | CPT/HCPCS: 77063; 77067 ==

== ENCOUNTER 2023-02-08 15:28 | Outpatient (AMB) | payer MEDICAID, SELFPAY ==
[2023-02-08 16:00] VITALS: BMI 28.4
--- NOTE | 2023-02-08 16:00 | MHC.OFFVIS ---
Intake Vital Signs 02/08/23 16:00 Height 5 ft 4 in Weight 165 lb 5.547 oz BMI 28.4 Intake Visit Reasons: Diverticulosis of large intestine Intake Note: This patient presents for an assessment for diverticulitis. Patient c/o; reports no changes. Engineering Technician Parking Required: Yes Engineering Technician Parking Name: Ihsan Information Interpreted: non-clinical & clinical Accompanied by: Self / Same As Patient Allergies Penicillins [PENICILLINS] Allergy (Intermediate, Verified 02/08/23 16:01) HIVES/SWELLING bupropion [From Wellbutrin] Allergy (Verified 02/08/23 16:01) hives, swelling Medication List - Last Reconciled 02/08/23 by Fritz Veliz MD aripiprazole 15 mg PO DAILY buspirone 15 mg PO BID cholecalciferol (vitamin D3) 25 mcg PO DAILY eluxadoline (Viberzi) 100 mg PO BID galcanezumab-gnlm (Emgality Pen) 120 mg subcut Q4W lisinopril 20 mg PO DAILY loperamide 2 mg PO Q6H PRN mesalamine (Delzicol) 800 mg (2 x 400 mg) PO TID metoprolol tartrate 25 mg PO BID nortriptyline 100 mg PO BEDTIME ondansetron 4 mg PO TID PRN 5 days sumatriptan succinate 100 mg PO DAILY PRN zolpidem ER 12.5 mg PO BEDTIME PRN HPI Diverticulosis of large intestine HPI Details She is here for follow-up for her colitis and diverticular disease. Her main complaint is that she has about 20 bowel movements a day which is always watery. She also says that this is associated with some crampy abdominal pain. She has good oral intake otherwise. She denies blood per rectum. [facility] Medical History Chronic abdominal pain Diverticular disease of colon Irritable bowel syndrome with diarrhea LLQ cramping Colitis Lower abdominal pain GERD (gastroesophageal reflux disease) Left lower quadrant pain Tubular adenoma of colon Sigmoid diverticulitis Acute diverticulitis Diarrhea Diverticulitis Abdominal pain GERD (gastroesophageal reflux disease) Chronic idiopathic constipation Constipation Surgical History History of intestinal surgery History of partial hysterectomy (~09/2006) Hx of hemorrhoidectomy Hx of colonoscopy History of esophagogastroduodenoscopy (EGD) Family History Father Cancer HTN (hypertension) Mother HTN (hypertension) Hyperthyroidism Migraine headache Maternal Grandmother History of breast cancer Paternal Grandmother History of breast cancer Family/Other Colon cancer Paternal Aunt Ovarian cancer Social History Household Members: Family and None Housing: Apartment Are you a primary medicare biller to a significant other at home: No Do you presently have visiting nurse or other home services: No Alcohol intake: never Patient Tobacco Use Status: Never used Tobacco service: No Current occupational status: disabled Current occupational exposures/hazards: No Female Reproductive History Menstrual Age of Menarche: 7 Review of Systems Const Denies chills and Denies fever(s) Card Denies chest pain GI Denies abdominal pain, Denies hematochezia and Reports diarrhea Denies hematuria Physical Exam Vital Signs: BMI result Body Mass Index 28.4 Const General: comfortable and no acute distress Resp Effort & Inspection: normal respiratory effort GI Palpation (GI): Soft to palpation, not firm and nontender Assessment & Plan Assessment & Plan (1) Clostridioides difficile diarrhea: Comment: Check for signs of toxicity which would come from elevated CBC Code(s): A04.72 - Enterocolitis due to Clostridium difficile, not specified as recurrent Plan: She continues to have severe diarrhea, usually about 20 times a day. She associates this with crampy abdominal pain as well She continues to have test positive for C diff in her stools. I explained to her that this likely to explain her severe diarrhea. I told her the diverticular disease should not cause her to have severe diarrhea. I have offered to arrange for her to have fecal microbiology transplant but she does not want this. I also offered for her to have a consultation with Gastroenterology in [facility] with regards to this. She she says that she will not be convinced by them to undergo fecal microbiota transplant I told her to think about it and let me know if she changes her mind. I explained to her that I would not recommend doing a sigmoid resection for diverticular disease in the absence of signs and symptoms suggesting recurrent diverticulitis especially in the background of severe diarrhea with C diff positive stools. Coding Level of Care Code Est Pt Level 3 (85278) Diagnoses Clostridioides difficile diarrhea A04.72
== END 2023-02-08 16:08 | disposition home or self-care (01) ==
PROVIDERS: PCP Internal Medicine; Referring Provider Nurse Practitioner; Visit Provider Surgery
DX: A04.72 Enterocolitis due to Clostridium difficile, not specified as recurrent (principal)
CPT/HCPCS: 99213

== ENCOUNTER → 2023-02-08 15:28 | Outpatient (BNVA) | payer MEDICAID, SELFPAY | PROVIDERS: PCP Internal Medicine; Referring Provider Nurse Practitioner; Visit Provider Surgery | DX: A04.72 Enterocolitis due to Clostridium difficile, not specified as recurrent (principal) | CPT/HCPCS: 99212 ==

== ENCOUNTER 2023-02-28 07:29 | Outpatient (REF) | payer MEDICAID, SELFPAY ==
--- NOTE | ~2023-02-28 | US_ITS ---
EXAMINATION: DUPLEX DOPPLER MESENTERIC ARTERIES CLINICAL INFORMATION: Abdominal pain. COMPARISON: None TECHNIQUE: Duplex Doppler ultrasound evaluation of the abdominal aorta and mesenteric arteries. FINDINGS: AORTA: Normal in caliber without significant atherosclerotic plaque. Normal arterial waveforms. Proximal to SMA: 67.0 cm/s Distal to SMA: 60.9 cm/s CELIAC: Difficult to visualize due to bowel gas shadowing. Inspiration supine: 202 cm/s Inspiration erect: 156 cm/s Expiration supine: 175 cm/s Expiration erect: 195 cm/s SUPERIOR MESENTERIC ARTERY: Proximal: 199 cm/s Mid: 87.4 cm/s Distal: 52.5 cm/s INFERIOR MESENTERIC ARTERY: 74.3 cm/s SPLENIC ARTERY: 102 cm/s HEPATIC ARTERY: 135 cm/s US/US SMA IMPRESSION: Unremarkable duplex ultrasound of the mesenteric arteries
== END 2023-02-28 07:30 | disposition home or self-care (01) ==
LOC: HO.US 07:29
PROVIDERS: PCP Internal Medicine; Visit Provider Nurse Practitioner
DX: R10.9 Unspecified abdominal pain (principal); K58.0 Irritable bowel syndrome with diarrhea; G89.29 Other chronic pain
CPT/HCPCS: 93976

== ENCOUNTER 2023-03-12 12:57 | Outpatient (AMB) | payer MEDICAID, SELFPAY ==
[2023-03-12 13:02] VITALS: BP 114/76; PULSE 80; BMI 28.3
--- NOTE | 2023-03-12 13:02 | A.OFFVIS_ITS ---
Intake Vital Signs 03/12/23 13:02 Height 5 ft 4 in Weight 164 lb 14.492 oz BMI 28.3 BP 114/76 Blood Pressure Location Rt brachial Position Sitting Pulse 80 Intake Visit Reasons: SUDD, CDIFF Intake Note: Patient returns to in office visit today in follow up for 2nd opinion. CC: Pt states she is feeling worst. Patient c/o constant severe abdominal pain, diarrhea everyday multiple times a day, and vomiting. She states that she D/C al l GI medications because she did not have any improvement while taking them. Vegetable Inspector Required: Yes Accompanied by: Self / Same As Patient Allergies Penicillins [PENICILLINS] Allergy (Intermediate, Verified 03/12/23 13:07) HIVES/SWELLING bupropion [From Wellbutrin] Allergy (Verified 03/12/23 13:07) hives, swelling HPI SUDD, CDIFF HPI Details 57 yr old f here for f/u she has been having ongoing diarrhea for 1 year can be going 20 time a day been in and out of the ED she has tried different abx for c diff that was diagnosed which have not helped she has upper and LLQ pain, always there, worse with food Endoscopies: colonoscopy-- 05/2022--- normal random bx, tubular adenomas removed TEST: CT A/P:12/28-- diverticulosis, (prior scan with possible descending colitis) US abdo 12/2022--- nml mesenteric duplex-- 02/28/23--nml Labs: Hgb 11, stool pcr c diff pos several times EXAM: GENERAL: The patient is well developed and nontoxic. VITAL SIGNS:see workflow HEENT: Nonicteric sclerae, PERRLA, EOMI. Oropharynx clear. Moist mucous membranes. Conjunctivae appear well perfused. No thyroid mass. CHEST: Chest wall is nontender. HEART: Regular rate and rhythm without murmurs. LUNGS: Clear to auscultation bilaterally. ABDOMEN: Soft, positive bowel sounds, tender upper abdomen, no organomegaly.no flank tenderness SKIN: No rash, no excessive bruising, petechiae, or purpura. NEUROLOGIC: Cranial nerves II-XII intact without motor/sensory deficit. A/P: 1/ Hard to know if she is just a c dif f carrier vs recurrent active infection j luis as she had no improvement with ABX, could also be another dx that is being missed e.g metabolic, hormonal, functional etiology Plan: 1/ offered Fecal transplant with rebyota , but she is against this, 2/ offered trying nitazoxanide, she will try this if insurance approved 3/ labs as below 4/ repeat EGD and colonoscopy w/ bx [facility] Medical History Chronic abdominal pain Diverticular disease of colon Irritable bowel syndrome with diarrhea LLQ cramping Colitis Lower abdominal pain GERD (gastroesophageal reflux disease) Left lower quadrant pain Tubular adenoma of colon Sigmoid diverticulitis Acute diverticulitis Diarrhea Diverticulitis Abdominal pain GERD (gastroesophageal reflux disease) Chronic idiopathic constipation Constipation Surgical History History of intestinal surgery History of partial hysterectomy (~09/2006) Hx of hemorrhoidectomy Hx of colonoscopy History of esophagogastroduodenoscopy (EGD) Family History Father Cancer HTN (hypertension) Mother HTN (hypertension) Hyperthyroidism Migraine headache Maternal Grandmother History of breast cancer Paternal Grandmother History of breast cancer Family/Other Colon cancer Paternal Aunt Ovarian cancer Social History Household Members: Family and None Housing: Apartment Are you a primary transitional care liaison to a significant other at home: No Do you presently have visiting nurse or other home services: No Alcohol intake: never Patient Tobacco Use Status: Never used Tobacco service: No Current occupational status: disabled Current occupational exposures/hazards: No Female Reproductive History Menstrual Age of Menarche: 7 Physical Exam Vital Signs: Last Vital Signs Pulse 80 03/12/23 13:02 BP 114/76 03/12/23 13:02 BMI result Body Mass Index 28.3 Assessment & Plan Assessment & Plan (1) Chronic abdominal pain: Code(s): R10.9 - Unspecified abdominal pain; G89.29 - Other chronic pain Plan: A/P: 1/ Hard to know if she is just a c diff carrier vs recurrent active infection j luis as she had no improvement with ABX, could also be another dx that is being missed e.g metabolic, hormonal, functional etiology Plan: 1/ offered Fecal transplant with rebyota, but she is against this, 2/ offered trying nitazoxanide, she will try this if insurance approved 3/ labs as below 4/ repeat EGD and colonoscopy w/ bx (2) Irritable bowel syndrome with diarrhea: Code(s): K58.0 - Irritable bowel syndrome with diarrhea Plan: A/P: 1/ Hard to know if she is just a c diff carrier vs recurrent active infection j luis as she had no improvement with ABX, could also be another dx that is being missed e.g metabolic, hormonal, functional etiology Plan: 1/ offered Fecal transplant with rebyota, but she is against this, 2/ offered trying nitazoxanide, she will try this if insurance approved 3/ labs as below 4/ repeat EGD and colonoscopy w/ bx (3) Clostridioides difficile diarrhea: Comment: Check for signs of toxicity which would come from elevated CBC Code(s): A04.72 - Enterocolitis due to Clostridium difficile, not specified as recurrent Plan: A/P: 1/ Hard to know if she is just a c diff carrier vs recurrent active infection j luis as she had no improvement with ABX, could also be another dx that is being missed e.g metabolic, hormonal, functional etiology Plan: 1/ offered Fecal transplant with rebyota, but she is against this, 2/ offered trying nitazoxanide, she will try this if insurance approved 3/ labs as below 4/ repeat EGD and colonoscopy w/ bx (4) Diarrhea: Code(s): R19.7 - Diarrhea, unspecified Plan: A/P: 1/ Hard to know if she is just a c diff carrier vs recurrent active infection j luis as she had no improvement with ABX, could also be another dx that is being missed e.g metabolic, hormonal, functional etiology Plan: 1/ offered Fecal transplant with rebyota, but she is against this, 2/ offered trying nitazoxanide, she will try this if insurance approved 3/ labs as below 4/ repeat EGD and colonoscopy w/ bx Orders: Orders Transglutaminase Ab IgG Today A04.72 - Enterocolitis due to Clostridium difficile, not specified as recurrent, G89.29 - Other chronic pain, K58.0 - Irritable bowel syndrome with diarrhea, R10.33 - Periumbilical pain, R10.9 - Unspecified abdominal pain, R19.7 - Diarrhea, unspecified TSH reflex Free T4 Today A04.72 - Enterocolitis due to Clostridium difficile, not specified as recurrent, G89.29 - Other chronic pain, K58.0 - Irritable bowel syndrome with diarrhea, R10.9 - Unspecified abdominal pain, R19.7 - Diarrhea, unspecified Tryptase Today A04.72 - Enterocolitis due to Clostridium difficile, not specified as recurrent, G89.29 - Other chronic pain, K58.0 - Irritable bowel syndrome with diarrhea, R10.9 - Unspecified abdominal pain, R19.7 - Diarrhea, unspecified Ferritin Today A04.72 - Enterocolitis due to Clostridium difficile, not specified as recurrent, G89.29 - Other chronic pain, K58.0 - Irritable bowel syndrome with diarrhea, R10.9 - Unspecified abdominal pain, R19.7 - Diarrhea, unspecified Giardia Ag Stool EIA Today A04.72 - Enterocolitis due to Clostridium difficile, not specified as recurrent, G89.29 - Other chronic pain, K58.0 - Irritable bowel syndrome with diarrhea, R10.9 - Unspecified abdominal pain, R19.7 - Diarrhea, unspecified GI Panel Today A04.72 - Enterocolitis due to Clostridium difficile, not specified as recurrent, G89.29 - Other chronic pain, K58.0 - Irritable bowel syndrome with diarrhea, R10.9 - Unspecified abdominal pain, R19.7 - Diarrhea, unspecified Glucagon Today A04.72 - Enterocolitis due to Clostridium difficile, not specified as recurrent, G89.29 - Other chronic pain, K58.0 - Irritable bowel syndrome with diarrhea, R10.9 - Unspecified abdominal pain, R19.7 - Diarrhea, unspecified Comprehensive Met. Panel Today A04.72 - Enterocolitis due to Clostridium difficile, not specified as recurrent, G89.29 - Other chronic pain, K58.0 - Irritable bowel syndrome with diarrhea, K75.81 - Nonalcoholic steatohepatitis (LEE), R10.9 - Unspecified abdominal pain, R19.7 - Diarrhea, unspecified Complete Blood Count Auto Diff Today A04.72 - Enterocolitis due to Clostridium difficile, not specified as recurrent, G89.29 - Other chronic pain, K58.0 - Irritable bowel syndrome with diarrhea, R10.9 - Unspecified abdominal pain, R19.7 - Diarrhea, unspecified Calcitonin Today A04.72 - Enterocolitis due to Clostridium difficile, not specified as recurrent, G89.29 - Other chronic pain, K58.0 - Irritable bowel syndrome with diarrhea, R10.9 - Unspecified abdominal pain, R19.7 - Diarrhea, unspecified CDiff Gene PCR Today A04.72 - Enterocolitis due to Clostridium difficile, not specified as recurrent, G89.29 - Other chronic pain, K58.0 - Irritable bowel syndrome with diarrhea, R10.9 - Unspecified abdominal pain, R19.7 - Diarrhea, unspecified Somatostatin Today A04.72 - Enterocolitis due to Clostridium difficile, not specified as recurrent, G89.29 - Other chronic pain, K58.0 - Irritable bowel syndrome with diarrhea, R10.9 - Unspecified abdominal pain, R19.7 - Diarrhea, unspecified Transglutaminase IgA Today A04.72 - Enterocolitis due to Clostridium difficile, not specified as recurrent, G89.29 - Other chronic pain, K58.0 - Irritable bowel syndrome with diarrhea, R10.9 - Unspecified abdominal pain, R19.7 - Diarrhea, unspecified Histamine Plasma Today A04.72 - Enterocolitis due to Clostridium difficile, not specified as recurrent, G89.29 - Other chronic pain, K58.0 - Irritable bowel syndrome with diarrhea, R10.9 - Unspecified abdominal pain, R19.7 - Diarrhea, unspecified Lactoferrin, Fecal, Quant. Today A04.72 - Enterocolitis due to Clostridium difficile, not specified as recurrent, G89.29 - Other chronic pain, K51.50 - Left sided colitis without complications, K58.0 - Irritable bowel syndrome with diarrhea, R10.9 - Unspecified abdominal pain, R19.7 - Diarrhea, unspecified Fecal Fat Qualitative Today A04.72 - Enterocolitis due to Clostridium difficile, not specified as recurrent, G89.29 - Other chronic pain, K58.0 - Irritable bowel syndrome with diarrhea, R10.9 - Unspecified abdominal pain, R19.7 - Diarrhea, unspecified Vitamin B12 and Folate Today A04.72 - Enterocolitis due to Clostridium difficile, not specified as recurrent, G89.29 - Other chronic pain, K58.0 - Irritable bowel syndrome with diarrhea, R10.9 - Unspecified abdominal pain, R19.7 - Diarrhea, unspecified Pancreatic Elastase-1 Today A04.72 - Enterocolitis due to Clostridium difficile, not specified as recurrent, G89.29 - Other chronic pain, K58.0 - Irritable bowel syndrome with diarrhea, R10.9 - Unspecified abdominal pain, R19.7 - Diarrhea, unspecified Erythrocyte Sedimentation Rate Today A04.72 - Enterocolitis due to Clostridium difficile, not specified as recurrent, G89.29 - Other chronic pain, K58.0 - Irritable bowel syndrome with diarrhea, R10.9 - Unspecified abdominal pain, R19.7 - Diarrhea, unspecified Immunoglobulins,IgG IgA IgM Today A04.72 - Enterocolitis due to Clostridium difficile, not specified as recurrent, G89.29 - Other chronic pain, K58.0 - Irritable bowel syndrome with diarrhea, R10.9 - Unspecified abdominal pain, R19.7 - Diarrhea, unspecified Hepatitis A,B,C Profile Today A04.72 - Enterocolitis due to Clostridium difficile, not specified as recurrent, G89.29 - Other chronic pain, K58.0 - Irritable bowel syndrome with diarrhea, R10.9 - Unspecified abdominal pain, R19.7 - Diarrhea, unspecified Vasoactive Intestinal Polypept Today A04.72 - Enterocolitis due to Clostridium difficile, not specified as recurrent, G89.29 - Other chronic pain, K58.0 - Irritable bowel syndrome with diarrhea, R10.9 - Unspecified abdominal pain, R19.7 - Diarrhea, unspecified Medications: New nitazoxanide must administer with a meal/food 500 mg PO BID 10 days 20 tabs 0RF peg-electrolyte soln 420 gram until fecal effluent is clear; 240 mL PO Q10M 4,000 mL 0RF ondansetron 4 mg PO Q8H PRN 30 tabs 0RF nausea and vomiting Discontinued mesalamine (Delzicol) Discontinued Reason: Patient Completed Course 800 mg (2 x 400 mg) PO TID 90 ea 0RF eluxadoline (Viberzi) must administer with a meal/food Discontinued Reason: Patient Refused 100 mg PO BID 60 tabs 5RF Coding Level of Care Code Est Pt Level 4 (31664) Diagnoses Chronic abdominal pain R10.9; G89.29 Irritable bowel syndrome with diarrhea K58.0 Clostridioides difficile diarrhea A04.72 Diarrhea R19.7
== END 2023-03-12 15:11 | disposition home or self-care (01) ==
PROVIDERS: PCP Nurse Practitioner Family; Visit Provider Internal Medicine Gastroenterology
DX: R10.9 Unspecified abdominal pain (principal); G89.29 Other chronic pain; K58.0 Irritable bowel syndrome with diarrhea; A04.72 Enterocolitis due to Clostridium difficile, not specified as recurrent; R19.7 Diarrhea, unspecified
CPT/HCPCS: 99214

== ENCOUNTER → 2023-03-12 12:57 | Outpatient (BNVA) | payer MEDICAID, SELFPAY | PROVIDERS: PCP Nurse Practitioner Family; Visit Provider Internal Medicine Gastroenterology | DX: K58.0 Irritable bowel syndrome with diarrhea (principal); A04.72 Enterocolitis due to Clostridium difficile, not specified as recurrent; G89.29 Other chronic pain; R10.9 Unspecified abdominal pain | CPT/HCPCS: 99212 ==

== ENCOUNTER 2023-03-14 10:06 | Outpatient (REF) | payer MEDICAID, SELFPAY ==
[2023-03-14 10:28] LABS: MANUAL DIFF FLAG NO
[2023-03-14 10:34] LABS: Basophils Percent Auto 0.6 % (0-2); Eosinophils Absolute Auto 0.2 X10*3/uL (0.0-0.4); Eosinophils Percent Auto 2.9 % (0-4); Hematocrit 39.4 % (37.0-47.0); Hemoglobin 12.5 g/dl (12.0-16.0); Imm Gran Abs Auto 0.01 X10*3/uL (0.00-0.03); Imm Gran Pct Auto 0.2 % (0.0-0.4); Lymphocytes Absolute Auto 2.4 X10*3/uL (1.2-4.9); Lymphocytes Percent Auto 45.7 % (20-40); Mean Corpuscular HGB Conc 31.7 g/dl (31.0-35.0); Mean Corpuscular Hemoglobin 26.9 pg (27.0-33.0); Mean Corpuscular Volume 84.9 fL (80.0-98.0); Mean Platelet Volume 8.9 fL (9.4-12.3); Monocytes Absolute Auto 0.4 X10*3/uL (0.1-1.2); Monocytes Percent Auto 6.8 % (2-11); Neutrophils Absolute Auto 2.3 x10*3/uL (2.0-8.3); Neutrophils Percent Auto 43.8 % (45-73); Platelet Count 330 X10*3/uL (160-400); Red Blood Count 4.64 X10*6/uL (4.20-5.50); Red Cell Distribution Width 14.2 % (11.0-16.0); White Blood Count 5.1 X10*3/uL (4.8-10.8)
[2023-03-14 11:01] LABS: Alanine Aminotransferase 12 U/L (0-31); Albumin Level 4.2 g/dL (3.5-5.0); Alkaline Phosphatase 59 U/L (39-117); Anion Gap 12 (12-20); Aspartate Amino Transferase 14 U/L (5-31); Bilirubin Total 0.4 mg/dL (0.0-1.0); Blood Urea Nitrogen 12 mg/dL (9-16); Carbon Dioxide 29 mmol/L (22-29); Chloride 105 mmol/L (96-108); Estimated Glomerular Filt Rate > 60; Glucose Random 90 mg/dL (60-115); Potassium 4.2 mmol/L (3.3-5.1); Sodium 142 mmol/L (135-145); Total Protein 7.4 g/dL (6.5-8.0)
[2023-03-14 11:14] LABS: Erythrocyte Sedimentation Rate 13 MM/HR (0-20)
[2023-03-14 11:15] LABS: Ferritin 28 ng/mL (10-250); TSH reflex Free T4 0.58 uIU/mL (0.32-4.0)
[2023-03-14 11:59] LABS: Folate 11.5 ng/mL (> or = 4.0); Vitamin B12 326 pg/mL (200-900)
[2023-03-15 07:56] LABS: HBS Num1 0.65 mIU/mL (0-7.99); Hepatitis A Antibody IgM 0.19 Index (0-0.79); Hepatitis B Core Antibody Nonreactive (Nonreactive); Hepatitis B Surface Antigen Negative (Negative); ~HepC Num1 0.13 S/CO (0.00-0.79); ~Hepatitis A Antibody IgM Nonreactive (Nonreactive); ~Hepatitis B Surface Antibody NONREACTIVE (Nonreactive); ~Hepatitis C Antibody Nonreactive (Nonreactive)
[2023-03-15 18:24] LABS: IgA 231 mg/dL (47-310); IgG 992 mg/dL (600-1640); IgM 82 mg/dL (50-300); Transglutaminase Ab IgG <1.0 U/mL; Transglutaminase IgA <1.0 U/mL
[2023-03-17 16:13] LABS: Histamine Plasma 4.8 ng/mL (< OR = 1.8)
[2023-03-21 06:22] LABS: Calcitonin <2 pg/mL (<=5)
== END 2023-03-14 10:07 | disposition home or self-care (01) ==
LOC: HO.LAB 10:06
PROVIDERS: PCP Nurse Practitioner Family; Visit Provider Internal Medicine Gastroenterology
DX: K75.81 Nonalcoholic steatohepatitis (NASH) (principal); R10.33 Periumbilical pain; G89.29 Other chronic pain; K58.0 Irritable bowel syndrome with diarrhea; A04.72 Enterocolitis due to Clostridium difficile, not specified as recurrent; R19.7 Diarrhea, unspecified
CPT/HCPCS: 36415; 80053; 82308; 82607; 82728; 82746; 82784; 82943; 83088; 83520; 84307; 84443; 84586; 85025; 85652; 86364; 86704; 86706; 86709; 86803; 87340

== ENCOUNTER 2023-03-15 10:48 | Outpatient (REF) | payer MEDICAID, SELFPAY ==
[2023-03-15 11:53] LABS: CDiff Gene PCR NEGATIVE (Negative)
[2023-03-15 12:56] LABS: Adenovirus F 40/41 Not Detected (Not Detect.); Astrovirus Not Detected (Not Detect.); Campylobacter Not Detected (Not Detect.); Cryptosporidium Not Detected (Not Detect.); Cyclospora cayetanensis Not Detected (Not Detect.); E. coli EAEC Not Detected (Not Detect.); E. coli EPEC Not Detected (Not Detect.); E. coli ETEC Not Detected (Not Detect.); E. coli STEC Not Detected (Not Detect.); Entamoeba histolytica Not Detected (Not Detect.); Giardia lamblia Not Detected (Not Detect.); Norovirus GI/GII Not Detected (Not Detect.); Plesiomonas shigelloides Not Detected (Not Detect.); Rotavirus A Not Detected (Not Detect.); Salmonella Not Detected (Not Detect.); Sapovirus Not Detected (Not Detect.); Shigella sp./EIEC Not Detected (Not Detect.); Vibrio Not Detected (Not Detect.); Vibrio Cholerae Not Detected (Not Detect.); Yersinia enterocolitica Not Detected (Not Detect.)
[2023-03-21 00:54] LABS: Fecal Fat Qualitative Normal (Normal)
[2023-03-21 21:34] LABS: Pancreatic Elastase-1 236 mcg/g
[2023-03-21 22:19] LABS: Lactoferrin, Fecal, Quant. <6.25 mcg/mL (<7.25)
== END 2023-03-15 10:49 | disposition home or self-care (01) ==
LOC: HO.LNP 10:48
PROVIDERS: Visit Provider Internal Medicine Gastroenterology
DX: K51.50 Left sided colitis without complications (principal); R10.9 Unspecified abdominal pain; G89.29 Other chronic pain; A04.72 Enterocolitis due to Clostridium difficile, not specified as recurrent; R19.7 Diarrhea, unspecified
CPT/HCPCS: 82656; 82705; 83631; 87329; 87493; 87507

== ENCOUNTER 2023-05-17 09:18 | Day surgery (SDC) | payer MEDICAID, SELFPAY ==
[2023-05-15 15:24] VITALS: BMI 28.3
--- NOTE | 2023-05-16 10:00 | HO.ANESPROP2 ---
Documented by User: Nica Vaca NP 05/16/23 10:02 HPI - Anesthesia Eval Consult details Narrative: 57yo F for Upper Endoscopy and Colonoscopy PMF Active Problems Active Problems: All Active Problems Chronic abdominal pain (Acute) Diverticular disease of colon (Acute) Irritable bowel syndrome with diarrhea (Acute) Clostridioides difficile diarrhea (Acute) Tubular adenoma of colon (Acute) Left lower quadrant pain (Acute) Diarrhea (Acute) Renal cyst (Acute) Acute diverticulitis (Acute) Encounter to discuss test results (Acute) Abdominal mass (Acute) Pelvic pain in female (Acute) Encounter for annual routine gynecological examination (Acute) Abdominal cramping (Acute) Epigastric pain (Acute) Past Medical History Medical History Chronic abdominal pain Diverticular disease of colon Irritable bowel syndrome with diarrhea LLQ cramping Colitis Lower abdominal pain GERD (gastroesophageal reflux disease) Left lower quadrant pain Tubular adenoma of colon Sigmoid diverticulitis Acute diverticulitis Diarrhea Diverticulitis Abdominal pain GERD (gastroesophageal reflux disease) Chronic idiopathic constipation Constipation Family History Family History Father Cancer HTN (hypertension) Mother HTN (hypertension) Hyperthyroidism Migraine headache Maternal Grandmother History of breast cancer Paternal Grandmother History of breast cancer Family/Other Colon cancer Paternal Aunt Ovarian cancer Family history of problems with anesthesia: No Surgical History Surgical History History of intestinal surgery History of partial hysterectomy (~09/2006) Hx of hemorrhoidectomy Hx of colonoscopy History of esophagogastroduodenoscopy (EGD) History of Problems with Anesthesia: No Social History Social History Household Members: Family and None Housing: Apartment Are you a primary home health care case manager to a significant other at home: No Do you presently have visiting nurse or other home services: No Alcohol intake: never Patient Tobacco Use Status: Never used Tobacco Advance Directives: No Advance Directives Information Provided: Yes service: No Current occupational status: disabled Current occupational exposures/hazards: No Meds Allergies Allergy/AdvReac Type Severity Reaction Status Date / Time Penicillins [PENICILLINS] Allergy Intermediate HIVES/SWELL Verified 03/12/23 13:07 ING bupropion [From Wellbutrin] Allergy hives, Verified 03/12/23 13:07 swelling Home Medications ?Medication ?Instructions ?Recorded ?Confirmed ?Last Taken ?Type galcanezumab-gnlm 120 mg/mL 120 mg subcut Q4W 11/25/21 02/08/23 12/21/21 History subcutaneous pen injector (Emgality Pen) lisinopril 20 mg tablet 20 mg PO DAILY 11/25/21 02/08/23 12/09/22 History metoprolol tartrate 25 mg tablet 25 mg PO BID 11/25/21 02/08/23 12/09/22 History nortriptyline 50 mg capsule 100 mg PO BEDTIME 11/25/21 02/08/23 01/10/22 History sumatriptan succinate 100 mg tablet 100 mg PO DAILY PRN migraine 11/25/21 02/08/23 01/11/22 History zolpidem 12.5 mg tablet,extended 12.5 mg PO BEDTIME PRN Insomnia 11/25/21 02/08/23 Unknown History release,multiphase aripiprazole 15 mg tablet 15 mg PO DAILY 03/31/22 02/08/23 12/09/22 History buspirone 15 mg tablet 15 mg PO BID 07/14/22 02/08/23 12/09/22 History cholecalciferol (vitamin D3) 25 25 mcg PO DAILY 09/20/22 02/08/23 12/09/22 History mcg (1,000 unit) tablet Exam Height,Weight and Vital Signs: Height 5 ft 4 in Weight 74.786 kg Assessment and Plan Assessment Anesthesia Assessment: Chart Reviewed Final Anesthetic Review Family History of Problems with Anesthesia: No History of Problems with Anesthesia: No Documented by User: Gurpreet Wolf MD 05/17/23 09:40 [facility] Past Medical History Medical History Chronic abdominal pain Diverticular disease of colon Irritable bowel syndrome with diarrhea LLQ cramping Colitis Lower abdominal pain GERD (gastroesophageal reflux disease) Left lower quadrant pain Tubular adenoma of colon Sigmoid diverticulitis Acute diverticulitis Diarrhea Diverticulitis Abdominal pain GERD (gastroesophageal reflux disease) Chronic idiopathic constipation Constipation Family History Family History Father Cancer HTN (hypertension) Mother HTN (hypertension) Hyperthyroidism Migraine headache Maternal Grandmother History of breast cancer Paternal Grandmother History of breast cancer Family/Other Colon cancer Paternal Aunt Ovarian cancer Surgical History Surgical History History of intestinal surgery History of partial hysterectomy (~09/2006) Hx of hemorrhoidectomy Hx of colonoscopy History of esophagogastroduodenoscopy (EGD) Social History Social History Household Members: Family and None Housing: Apartment Are you a primary home health care case manager to a significant other at home: No Do you presently have visiting nurse or other home services: No Alcohol intake: never Patient Tobacco Use Status: Never used Tobacco Advance Directives: No Advance Directives Information Provided: Yes service: No Current occupational status: disabled Current occupational exposures/hazards: No Meds Allergies Allergy/AdvReac Type Severity Reaction Status Date / Time Penicillins [PENICILLINS] Allergy Intermediate HIVES/SWELL Verified 03/12/23 13:07 ING bupropion [From Wellbutrin] Allergy hives, Verified 03/12/23 13:07 swelling Home Medications ?Medication ?Instructions ?Recorded ?Confirmed ?Last Taken ?Type galcanezumab-gnlm 120 mg/mL 120 mg subcut Q4W 11/25/21 02/08/23 12/21/21 History subcutaneous pen injector (Emgality Pen) lisinopril 20 mg tablet 20 mg PO DAILY 11/25/21 02/08/23 12/09/22 History metoprolol tartrate 25 mg tablet 25 mg PO BID 11/25/21 02/08/23 12/09/22 History nortriptyline 50 mg capsule 100 mg PO BEDTIME 11/25/21 02/08/23 01/10/22 History sumatriptan succinate 100 mg tablet 100 mg PO DAILY PRN migraine 11/25/21 02/08/23 01/11/22 History zolpidem 12.5 mg tablet,extended 12.5 mg PO BEDTIME PRN Insomnia 11/25/21 02/08/23 Unknown History release,multiphase aripiprazole 15 mg tablet 15 mg PO DAILY 03/31/22 02/08/23 12/09/22 History buspirone 15 mg tablet 15 mg PO BID 07/14/22 02/08/23 12/09/22 History cholecalciferol (vitamin D3) 25 25 mcg PO DAILY 09/20/22 02/08/23 12/09/22 History mcg (1,000 unit) tablet Exam Airway Mallampati Class: II TM Dist: >3cm Neck ROM: Full Loose/Missing/Broken Teeth: No Heart: rrr Lungs: cta Assessment and Plan Assessment Anesthesia Assessment: Anesthesia Plan Discussed Final Anesthetic Review NPO: Yes ASA Class: II Final Preanesthetic Review: No Changes in Pt Med Stat, Meds/Allgs Chart Reviewed, Consent Obtained/Reviewed and Anes Risks/Benef Reviewed Patient Risk: Intermediate Procedure Risk: Intermediate Anesthetic Plan Anesthetic Plan: MAC: Disposition: Standard PACU
--- NOTE | 2023-05-17 07:34 | MHC.SHP ---
Pre-Procedural Eval Section A - 24 Hr Update-Section A only Date of Service: 05/17/23 Section B - Complete if H&P > 30 days Chief Complaint: Irritable bowel syndrome with diarrhea Details of Present Illness: Father Cancer HTN (hypertension)Mother HTN (hypertension) Hyperthyroidism Migraine headacheMaternal Grandmother History of breast cancerPaternal Grandmother History of breast cancerFamily/Other Colon cancerPaternal Aunt Ovarian cancer Relevant Family History (Specify if Yes): Yes Relevant Social History: None Present Medications: see Short Stay Collaborative assessment Medical History: Significant History (Chronic abdominal pain Diverticular disease of colon Irritable bowel syndrome with diarrhea LLQ cramping Colitis Lower abdominal pain GERD (gastroesophageal reflux disease) Left lower quadrant pain Tubular adenoma of colon Sigmoid diverticulitis Acute diverticulitis Diarrhea Diverticulitis Abdominal) History of Previous Operations: Relevant previous surgery/procedure and date(s) ( History of intestinal surgery History of partial hysterectomy (~09/2006) Hx of hemorrhoidectomy Hx of colonoscopy History of esophagogastroduodenoscopy (EGD)) Allergies: Allergies Allergy/AdvReac Type Severity Reaction Status Date / Time Penicillins [PENICILLINS] Allergy Intermediate HIVES/SWELL Verified 03/12/23 13:07 ING bupropion [From Wellbutrin] Allergy hives, Verified 03/12/23 13:07 swelling Review of Systems Sugical H&P ROS: Negative: Constitution, Cardiovascular, Respiratory, Neurological, Psychiatric, Hem-Onc, Allergic/Immunologic, Gastrointestinal, Genitourinary, Musculoskeletal, Integumentary, Endocrine and Eyes/Ears/Nose/Throat Exam Surgical H&P Exam: Normal: HEENT, Normal: Heart, Normal: Lungs, Normal: Extremities, Normal: Abdomen, Normal: Skin and Normal: Neurological Plan Diagnosis/Plan: Unchanged I have reviewed the history and physical and performed a pertinent physical examination on my patient. No changes have occurred unless specified. Time Spent With Patient Time: Total time managing care of this patient today ____ minutes.
[2023-05-17 10:12] VITALS: BP 113/62; PULSE 74; RESP 18; TEMP 36.6; O2SAT 98
[2023-05-17] MEDS: Lactated Ringers 1,000 ML 100 ML IVCONT (10:12)
[2023-05-17 10:13] VITALS: BMI 28.3
--- NOTE | 2023-05-17 10:47 | P.OP_ITS ---
Operative Note Operative Note Date of Service: 05/17/23 Narrative: Operative Information Procedure Description: EGD, Colonoscopy Indication: diarrhea, abdominal pain Anesthesia: MAC FLEXIBLE TRANSORAL UPPER GASTROINTESTINAL ENDOSCOPY AND COLONOSCOPY PROCEDURE NOTE UPPER ENDOSCOPY Consent: Indications for the procedure and potential complications of bleeding, perforation, reaction to medications and missed diagnosis were discussed with the patient and informed consent was obtained. Instrument: Olympus GIF H 190 J mid size upper endoscope Monitoring: Vital signs and clinical assessment, continuous EKG monitoring, Pulse oximetry, Carbon Dioxide monitoring and blood pressure monitoring were done throughout the procedure. Procedure: The patient was placed in the left lateral decubitis position and pre-procedure medications were administered and a bite block was placed. The endoscope was inserted into the mouth and advanced under direct vision to the third part of duodenum. A careful inspection was made as the upper endoscope was withdrawn including a retroflexed examination of the proximal stomach; Findings and interventions are described below. Findings: Larynx:normal Esophagus: GE junction at 33 cm, diaphragm hiatus at 35 cm, bogginess and erythema, GEJ, bx taken from here and distal esophagus--schatzki ring and small hiatal hernia noted Stomach: Mild erythema. Biopsies were obtained. Grade 2 flap valve on retroflexed examination of the cardia. Duodenum: Normal bulb and descending duodenum, bx taken Intervention: Biopsies as noted above, COLONOSCOPY Instrument: Olympus variable stiffness pediatric scope 190L Colonoscopy Monitoring: Vital signs and clinical assessment, continuous EKG monitoring, Pulse oximetry, Carbon Dioxide monitoring and blood pressure monitoring were done throughout the procedure. Colon withdrawal time was 13 minutes. Procedure: The patient was placed in the left lateral decubitis position and pre-procedure medications were administered. After a digital rectal examination of the ano-rectum, the video colonoscope was inserted into the rectum and advanced through the colon to the cecum/TI. The colonoscope was slowly withdrawn in a retrograde panoramic fashion and the colon mucosa was carefully examined including a retroflexed view of the rectum. Findings and interventions are described below. Procedure Difficulty:moderate Findings: Terminal Ileum-normal, bx taken Random colon bx taken Cecum:normal Ascending Colon: x 2 sessile polyps 6-8 mm removed with cold forceps Transverse Colon - 8 mm sessile polyp removed with cold snare Descending Colon:normal Sigmoid Colon: moderate diverticulosis Rectum: Retroflexion with small internal hemorrhoids, grade I Anorectum - normal Colon preparation: [place] Bowel Preparation Scale Right colon; 2 Transverse colon: 2 Left colon; 2 (0 = Unprepared colon segment with mucosa not seen due to solid stool that cannot be cleared. 1 = Portion of mucosa of the colon segment seen, but other areas of the colon segment not well seen due to staining, residual stool and/or opaque liquid. 2 = Minor amount of residual staining, small fragments of stool and/or opaque liquid, but mucosa of colon segment seen well. 3 = Entire mucosa of colon segment seen well with no residual staining, small fragments of stool or opaque liquid) Impression and Post Procedure Diagnosis: Endoscopy Findings: esophagitis gastritis schatzki ring Colonoscopy Findings: diverticulosis colon polyps internal hemorrhoids Plan: Await Pathology results Repeat Colonoscopy in 5 years or earlier if clinically indicated High fiber diet leaflet avoid straining at stool, epsom salts and sitz bath, anusol supps or cream consider PPi fi not taking Above findings were reviewed with the patient and relevant handouts were provided if indicated.
[2023-05-17 11:09] VITALS: BP 115/93; PULSE 50; RESP 18; TEMP 36.1; O2SAT 100
[2023-05-17 11:24] VITALS: BP 96/39; PULSE 60; RESP 12; TEMP 36.1; O2SAT 97
[2023-05-17 11:39] VITALS: BP 105/51; PULSE 56; RESP 16; O2SAT 100
[2023-05-17 13:07] LABS: CDiff Gene PCR POSITIVE (Negative)
[2023-05-17 13:42] LABS: CDIFF Internal ctrl Dots and bkg OK (V); CDiff Toxin Negative (Negative)
[2023-05-23 18:59] LABS: Lactoferrin, Fecal, Quant. <6.25 mcg/mL (<7.25)
== END 2023-05-17 12:30 | disposition home or self-care (01) ==
PROVIDERS: PCP Nurse Practitioner Family; Visit Provider Internal Medicine Gastroenterology
PROC: (CPT 45385; principal; 2023-05-17 11:00)
DX: R10.32 Left lower quadrant pain (principal); G89.29 Other chronic pain; Z86.010 Personal history of colon polyps; K58.0 Irritable bowel syndrome with diarrhea; A04.72 Enterocolitis due to Clostridium difficile, not specified as recurrent; D12.0 Benign neoplasm of cecum; D12.2 Benign neoplasm of ascending colon; D12.3 Benign neoplasm of transverse colon; K57.30 Diverticulosis of large intestine without perforation or abscess without bleeding; K64.0 First degree hemorrhoids; K29.50 Unspecified chronic gastritis without bleeding; K22.2 Esophageal obstruction; K20.80 Other esophagitis without bleeding; K44.9 Diaphragmatic hernia without obstruction or gangrene; Z79.899 Other long term (current) drug therapy; Z88.0 Allergy status to penicillin; Z88.8 Allergy status to other drugs, medicaments and biological substances; Z98.890 Other specified postprocedural states
CPT/HCPCS: 45385; 45380; 43239; 83631; 87324; 87493; 88305; 88313; 88342; J2704

== ENCOUNTER → 2023-05-17 09:18 | Outpatient (BNV) | payer MEDICAID, SELFPAY | PROVIDERS: PCP Nurse Practitioner Family; Visit Provider Internal Medicine Gastroenterology | DX: R19.7 Diarrhea, unspecified (principal); D12.3 Benign neoplasm of transverse colon; D12.2 Benign neoplasm of ascending colon; K57.30 Diverticulosis of large intestine without perforation or abscess without bleeding; K64.0 First degree hemorrhoids; K22.2 Esophageal obstruction; K20.90 Esophagitis, unspecified without bleeding; K29.70 Gastritis, unspecified, without bleeding | CPT/HCPCS: 43239; 45380; 45385 ==

== ENCOUNTER 2023-06-22 11:27 | Outpatient (AMB) | payer MEDICAID, SELFPAY ==
--- NOTE | 2023-06-22 11:30 | A.OFFVIS_ITS ---
Vital Signs 06/22/23 11:33 Height 5 ft 4 in Weight 163 lb 2.273 oz BMI 28.0 BP 126/58 L Blood Pressure Location Lt brachial Position Sitting Pulse 65 Intake Visit Reasons: S/P [facility] [place] and EGD Intake Note: Kacy presents in the office as a follow up EGD and COLO. CC: She wants results - she was given medication for diarrhea but she is still having the diarrhea. Surveying Technician Required: Yes Surveying Technician Name: [id number] Allergies Penicillins [PENICILLINS] Allergy (Intermediate, Verified 06/22/23 11:33) HIVES/SWELLING bupropion [From Wellbutrin] Allergy (Verified 06/22/23 11:33) hives, swelling HPI HPI S/P [facility] [place] and EGD: Details: 58yr old f here for f/u she has been having ongoing diarrhea for 1 year can be going 20 time a day been in and out of the ED she has tried different abx for c diff that was diagnosed which have not helped she has upper and LLQ pain, always there, worse with food Endoscopies: colonoscopy-- 05/2022--- normal random bx, tubular adenomas removed TEST: CT A/P:12/28-- diverticulosis, (prior scan with possible descending colitis) US abdo 12/2022--- nml mesenteric duplex-- 02/28/23--nml Labs: Hgb 11, stool pcr c diff pos several times REPT EGD/[place] Endoscopy Findings: esophagitis gastritis schatzki ring Colonoscopy Findings: diverticulosis colon polyps internal hemorrhoids path--TA removed, Stool testing: still pos for c diff gene but neg toxin, neg fecal lactoferrin EXAM: GENERAL: The patient is well developed and nontoxic. VITAL SIGNS:see workflow HEENT: Nonicteric sclerae, PERRLA, EOMI. Oropharynx clear. Moist mucous membranes. Conjunctivae appear well perfused. No thyroid mass. CHEST: Chest wall is nontender. HEART: Regular rate and rhythm without murmurs. LUNGS: Clear to auscultation bilaterally. ABDOMEN: Soft, positive bowel sounds, tender upper abdomen and LLQ, no organomegaly.no flank tenderness SKIN: No rash, no excessive bruising, petechiae, or purpura. NEUROLOGIC: Cranial nerves II-XII intact without motor/sensory deficit. 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, ddx: diverticular associated pain, no benefit from mesalamine could also be post infectious IBS Plan: 1/ Vanc for 10 d and then rifaximin for 20 d 2/ trial of levsin 3/ high fiber diet PFSH Medical History Chronic abdominal pain Diverticular disease of colon Irritable bowel syndrome with diarrhea LLQ cramping Colitis Lower abdominal pain GERD (gastroesophageal reflux disease) Left lower quadrant pain Tubular adenoma of colon Sigmoid diverticulitis Acute diverticulitis Diarrhea Diverticulitis Abdominal pain GERD (gastroesophageal reflux disease) Chronic idiopathic constipation Constipation Surgical History History of intestinal surgery History of partial hysterectomy (~09/2006) Hx of hemorrhoidectomy Hx of colonoscopy History of esophagogastroduodenoscopy (EGD) Family History Father Cancer HTN (hypertension) Mother HTN (hypertension) Hyperthyroidism Migraine headache Maternal Grandmother History of breast cancer Paternal Grandmother History of breast cancer Family/Other Colon cancer Paternal Aunt Ovarian cancer Social History Household Members: Family and None Housing: Apartment Are you a primary home health aide caregiver to a significant other at home: No Do you presently have visiting nurse or other home services: No Alcohol intake: never Patient Tobacco Use Status: Never used Tobacco service: No Current occupational status: disabled Current occupational exposures/hazards: No Female Reproductive History Menstrual Age of Menarche: 7 Physical Exam Vital Signs: Last Vital Signs Pulse 65 06/22/23 11:33 BP 126/58 L 06/22/23 11:33 BMI result Body Mass Index 28.0 Assessment & Plan Assessment & Plan (1) Irritable bowel syndrome with diarrhea: Code(s): K58.0 - Irritable bowel syndrome with diarrhea Category: Medical Plan: see above (2) Diverticular disease of colon: Comment: ? SUDD Code(s): K57.30 - Diverticulosis of large intestine without perforation or abscess without bleeding Category: Medical Plan: see above Medications: New hyoscyamine sulfate (Levsin/SL) 0.125 mg sublingual BID-QID PRN 30 tabs 0RF dyspepsia vancomycin 125 mg PO QID 10 days 40 caps 0RF rifaximin start after finish course of vancomycin 400 mg (2 x 200 mg) PO TID 20 days 120 tabs 0RF Discontinued nitazoxanide must administer with a meal/food Discontinued Reason: Doctor's Order 500 mg PO BID 10 days 20 tabs 0RF mesalamine ER (Apriso) Discontinued Reason: Doctor's Order 1.5 grams (4 x 0.375 gram) PO QAM 120 caps 2RF Coding Level of Care Code Est Pt Level 3 (77050) Diagnoses Irritable bowel syndrome with diarrhea K58.0 Diverticular disease of colon K57.30
[2023-06-22 11:33] VITALS: BP 126/58; PULSE 65; BMI 28.0
== END 2023-06-22 12:01 | disposition home or self-care (01) ==
PROVIDERS: PCP Nurse Practitioner Family; Referring Provider Nurse Practitioner Family; Visit Provider Internal Medicine Gastroenterology
DX: K58.0 Irritable bowel syndrome with diarrhea (principal); K57.30 Diverticulosis of large intestine without perforation or abscess without bleeding
CPT/HCPCS: 99213

== ENCOUNTER → 2023-06-22 11:27 | Outpatient (BNVA) | payer MEDICAID, SELFPAY | PROVIDERS: PCP Nurse Practitioner Family; Visit Provider Internal Medicine Gastroenterology | DX: K58.0 Irritable bowel syndrome with diarrhea (principal); K57.30 Diverticulosis of large intestine without perforation or abscess without bleeding | CPT/HCPCS: 99212 ==

== ENCOUNTER 2023-07-13 10:59 | Outpatient (AMB) | payer MEDICAID, SELFPAY ==
--- NOTE | 2023-07-13 11:01 | MHC.OFFVIS ---
Vital Signs 07/13/23 11:03 Height 5 ft 4 in Weight 165 lb 5.547 oz BMI 28.4 BP 118/67 Blood Pressure Location Rt brachial Pulse 61 Intake Visit Reasons: 4 month follow up Intake Note: Kacy presents in the office as a 4 month follow up CC: She states that she is not having any new concerns - states she finished the antibiotics that were given but she still feels no difference. Sensor Specialist Required: Yes Sensor Specialist Name: [id number] Maruiivelisseo Allergies Penicillins [PENICILLINS] Allergy (Intermediate, Verified 07/13/23 11:03) HIVES/SWELLING bupropion [From Wellbutrin] Allergy (Verified 07/13/23 11:03) hives, swelling HPI HPI 4 month follow up: Details: 58yr old f here for f/u She tried the vanc for 10d but never got the rifaximin for 20d --? not covered by insurance feels it made no change she still has diarrhea she tried levsin didnt help her sx she still doesnt want to try fecal transplant she takes probiotic she feels hemorrhoids are acting up she is taking fiber Endoscopies: colonoscopy-- 05/2022--- normal random bx, tubular adenomas removed TEST: CT A/P:12/28-- diverticulosis, (prior scan with possible descending colitis) US abdo 12/2022--- nml mesenteric duplex-- 02/28/23--nml Labs: Hgb 11, stool pcr c diff pos several times REPT EGD/[place] [facility] Findings: esophagitis gastritis schatzki ring Colonoscopy Findings: diverticulosis colon polyps internal hemorrhoids path--TA removed, Stool testing: still pos for c diff gene but neg toxin, neg fecal lactoferrin EXAM: GENERAL: The patient is well developed and nontoxic. VITAL SIGNS:see workflow HEENT: Nonicteric sclerae, PERRLA, EOMI. Oropharynx clear. Moist mucous membranes. Conjunctivae appear well perfused. No thyroid mass. CHEST: Chest wall is nontender. HEART: Regular rate and rhythm without murmurs. LUNGS: Clear to auscultation bilaterally. ABDOMEN: Soft, positive bowel sounds, tender upper abdomen and LLQ, no organomegaly.no flank tenderness SKIN: No rash, no excessive bruising, petechiae, or purpura. NEUROLOGIC: Cranial nerves II-XII intact without motor/sensory deficit. 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, no difference with vanc, but did not get rifaximin, levsin not helped either maybe IBS or subacute IBD based on possibel colitis in past Plan: 1/ trial of wlechol 2/ cont with probiotics 3/ high fiber diet 4/ if ongoing sx then capsule endo, maybe also trial of ibgard PFSH Medical History Chronic abdominal pain Diverticular disease of colon Irritable bowel syndrome with diarrhea LLQ cramping Colitis Lower abdominal pain GERD (gastroesophageal reflux disease) Left lower quadrant pain Tubular adenoma of colon Sigmoid diverticulitis Acute diverticulitis Diarrhea Diverticulitis Abdominal pain GERD (gastroesophageal reflux disease) Chronic idiopathic constipation Constipation Surgical History History of intestinal surgery History of partial hysterectomy (~09/2006) Hx of hemorrhoidectomy Hx of colonoscopy History of esophagogastroduodenoscopy (EGD) Family History Father Cancer HTN (hypertension) Mother HTN (hypertension) Hyperthyroidism Migraine headache Maternal Grandmother History of breast cancer Paternal Grandmother History of breast cancer Family/Other Colon cancer Paternal Aunt Ovarian cancer Social History Household Members: Family and None Housing: Apartment Are you a primary healthcare facility administrator to a significant other at home: No Do you presently have visiting nurse or other home services: No Alcohol intake: never Patient Tobacco Use Status: Never used Tobacco service: No Current occupational status: disabled Current occupational exposures/hazards: No Female Reproductive History Menstrual Age of Menarche: 7 Physical Exam Vital Signs: Last Vital Signs Pulse 61 07/13/23 11:03 BP 118/67 07/13/23 11:03 BMI result Body Mass Index 28.4 Assessment & Plan Assessment & Plan (1) Irritable bowel syndrome with diarrhea: Code(s): K58.0 - Irritable bowel syndrome with diarrhea Category: Medical Plan: as above Medications: New colesevelam (WelChol) 1,250 mg (2 x 625 mg) PO BID 120 tabs 2RF hydrocortisone 2.5% (Proctozone-HC) 1 appl RI BID-QID PRN 30 grams 0RF hemorrhoids Coding Level of Care Code Est Pt Level 4 (44503) Diagnoses Irritable bowel syndrome with diarrhea K58.0
[2023-07-13 11:03] VITALS: BP 118/67; PULSE 61; BMI 28.4
== END 2023-07-13 11:45 | disposition home or self-care (01) ==
PROVIDERS: PCP Nurse Practitioner Family; Referring Provider Nurse Practitioner Family; Visit Provider Internal Medicine Gastroenterology
DX: K58.0 Irritable bowel syndrome with diarrhea (principal)
CPT/HCPCS: 99214

== ENCOUNTER → 2023-07-13 10:59 | Outpatient (BNVA) | payer MEDICAID, SELFPAY | PROVIDERS: PCP Nurse Practitioner Family; Visit Provider Internal Medicine Gastroenterology | DX: K58.0 Irritable bowel syndrome with diarrhea (principal) | CPT/HCPCS: 99212 ==

== ENCOUNTER 2023-08-03 08:01 | Outpatient (REF) | payer MEDICAID, SELFPAY ==
[2023-08-03 12:01] LABS: Bacterial Vaginosis PCR NEGATIVE (Negative); Candida Group PCR NOT DETECTED (Not Detect); Candida glab krusei PCR NOT DETECTED (Not Detect); Trichomonas vaginalis PCR NOT DETECTED (Not Detect)
== END 2023-08-03 08:02 | disposition home or self-care (01) ==
LOC: HO.LNP 08:01
PROVIDERS: PCP Nurse Practitioner Family; Visit Provider Advanced Practice Midwife
DX: Z01.419 Encounter for gynecological examination (general) (routine) without abnormal findings (principal); N89.8 Other specified noninflammatory disorders of vagina
CPT/HCPCS: 0352U; 81003; 99396

== ENCOUNTER 2023-08-03 08:01 | Outpatient (AMB) | payer MEDICAID, SELFPAY ==
[2023-08-03 08:02] VITALS: BP 114/72; BMI 28.2
--- NOTE | 2023-08-03 08:02 | A.OFFVIS_ITS ---
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 She is doing well with concerns:infection in her bowels, having pain, has vomiting and diarrhea. She reports stabbing bladder pain and urinary incontinence. She has a follow up with the urology and GI in September. Currently not sexually active. Admits to slight external irritation. History of a hysterectomy due to heavy menstrual bleeding. Last mammogram; 2022. Colonoscopy is UTD. [facility] Medical History Chronic abdominal pain Diverticular disease of colon Irritable bowel syndrome with diarrhea LLQ cramping Colitis Lower abdominal pain GERD (gastroesophageal reflux disease) Left lower quadrant pain Tubular adenoma of colon Sigmoid diverticulitis Acute diverticulitis Diarrhea Diverticulitis Abdominal pain GERD (gastroesophageal reflux disease) Chronic idiopathic constipation Constipation Surgical History History of intestinal surgery History of partial hysterectomy (~09/2006) Hx of hemorrhoidectomy Hx of colonoscopy History of esophagogastroduodenoscopy (EGD) Family History Father Cancer HTN (hypertension) Mother HTN (hypertension) Hyperthyroidism Migraine headache Maternal Grandmother History of breast cancer Paternal Grandmother History of breast cancer Family/Other Colon cancer Paternal Aunt Ovarian cancer Social History Household Members: Family and None Housing: Apartment Are you a primary care program resident to a significant other at home: No Do you presently have visiting nurse or other home services: No Alcohol intake: never Patient Tobacco Use Status: Never used Tobacco service: No Current occupational status: disabled Current occupational exposures/hazards: No Female Reproductive History Menstrual Age of Menarche: 7 Total pregnancies: 4 Full term: 4 Number of Living Children: 4 Date of last pap smear: 05/07/03 History of abnormal pap smear: No History of STI: No Date of Mammogram: 01/13/23 Review of Systems Const All systems reviewed & are unremarkable except as noted in HPI and below Reports as per HPI Eyes Reports no additional complaints ENT Reports no additional complaints Card Reports no additional complaints Resp Reports no additional complaints GI Reports as per HPI and Reports no additional complaints Reports as per HPI Musc Reports no additional complaints Skin/Breast Reports as per HPI Neuro Reports no additional complaints Psych Reports no additional complaints Endo Reports no additional complaints Erik/Lymph Reports no additional complaints Aller/Immun Reports no additional complaints Physical Exam Vital Signs: Last Vital Signs BP 114/72 08/03/23 08:02 BMI result Body Mass Index 28.2 Const General: cooperative, healthy appearing, no acute distress, well developed and alert Orientation/consciousness: patient oriented x3 HEENT Head: Yes normal to inspection Eyes General: appearance normal, both eyes and all related structures Neck Neck: Yes normal visual inspection Thyroid: Thyroid normal Chest Chest palpation & inspection: normal inspection of the chest and other (no puckering, dimpling, peau de orange, retraction, discharge, masses) Breast/axilla inspection: normal inspection of the breasts Breast/axilla palpation: normal palpation of the breasts Resp Effort & Inspection: normal respiratory effort GI Inspection: Yes normal to inspection and Yes scar Palpation (GI): Soft to palpation and Tenderness to palpation present (GI) (Slightly tender throughout the lower abdomen) Rectal Exam - Female: deferred General: Yes bladder normal to palpation External Female Exam: normal external appearance and normal appearance of the urethra Speculum Exam - Vagina: normal appearance of the vagina, normal palpation, normal vaginal discharge and vagina atrophic Speculum Exam - Cervix: Cervix absent (Vaginal cuff no lesions or nodules) Bimanual exam- vagina & uterus: normal bimanual exam, normal palpation, bladder normal to palpation and uterus absent Bimanual Exam- Adnexa, other: no masses Skin General skin exam: no rashes or lesions noted Rashes: no rashes Neuro General: patient oriented x3 Cognition (Neuro): normal cognition Extrem General: Yes normal to inspection Psych Attitude: cooperative Thought process: Normal thought process present Results AMB Urinalysis, Automated UA Leukoctes 0 Jose/uL Last Edit by Maira Simmons CMA on 08/03/23 08:37 UA Nitrite Negative Last Edit by Maira Simmons CMA on 08/03/23 08:37 UA Urobilinogen 3.5 mg/dL Last Edit by Maira Simmons CMA on 08/03/23 08:37 UA Protein 0 mg/dL Last Edit by Maira Simmons CMA on 08/03/23 08:37 UA pH 5.0 Last Edit by Maira Simmons, STEVEN on 08/03/23 08:37 UA Blood 25 Wally/uL Last Edit by Maira Simmons, STEVEN on 08/03/23 08:37 UA Specific [place] 1.025 Last Edit by Maira Simmons CMA on 08/03/23 08:37 UA Ketone Negative Last Edit by Maira Simmons CMA on 08/03/23 08:37 UA Bilirubin 0 mg/dL Last Edit by Maira Simmons CMA on 08/03/23 08:37 UA Glucose 0 mg/dL Last Edit by Maira Simmons CMA on 08/03/23 08:37 Assessment & Plan Assessment & Plan (1) Encounter for well woman exam with routine gynecological exam: Code(s): Z01.419 - Encounter for gynecological examination (general) (routine) without abnormal findings Category: Medical Plan Discussed: Current recommendations for pap smears per ASCCP guidelines. Breast awareness, periodic self breast exams and yearly mammogram. Maintain a healthy lifestyle, well balanced diet including Calcium 1,200 mg and Vitamin D 600 IU daily, and routine exercise. Contact the office with any postmenopausal bleeding. Excessive wiping may contribute to external irritation no obvious symptoms today external skin is clear plan to send BV panel today. She is planning to go right to the GI Department after this visit to speak to someone about how she has been feeling. Advised her to speak to the urology department today regarding her symptoms, trace blood in urine today. Patient verbalizes understanding and agrees to the plan of care. She was given opportunity to ask questions and all questions were answered to the best of my ability. RTO in 1 year for annual release coordinator exam. This note is constructed using voice recognition software. While every effort has been made to ensure accuracy, instructor wastewater treatment plant errors may have been included. Orders: Orders Bacterial Vaginosis Panel Today N89.8 - Other specified noninflammatory disorders of vagina AMB Urinalysis Automated Today Z13.9 - Encounter for screening, unspecified Coding Level of Care Code Est Pt Prev Care 40-64y(53977) Diagnoses Encounter for well woman exam with routine gynecological exam Z01.419
== END 2023-08-03 08:36 | disposition home or self-care (01) ==
LOC: HO.HWS 08:01
PROVIDERS: PCP Nurse Practitioner Family; Visit Provider Advanced Practice Midwife
DX: Z01.419 Encounter for gynecological examination (general) (routine) without abnormal findings (principal); Z13.9 Encounter for screening, unspecified
CPT/HCPCS: 99396

== ENCOUNTER 2023-08-27 11:46 | Outpatient (AMB) | payer MEDICAID, SELFPAY ==
--- NOTE | 2023-08-27 11:50 | A.OFFVIS_ITS ---
Vital Signs 08/27/23 12:00 Height 5 ft 4 in Weight 162 lb BMI 27.8 BP 108/72 Blood Pressure Location Lt brachial Position Sitting Pulse 76 Intake Visit Reasons: PER GARNER Intake Note: Patient follow up for abdominal pain. Patient cc: N/V and shocking with vomit, abdominal pain/bloating, diarrhea, acid reflex with burning sensation. Denies any other GI issues. Salesperson Household Appliances Required: Yes Accompanied by: Self / Same As Patient Allergies Penicillins [PENICILLINS] Allergy (Intermediate, Verified 08/27/23 11:57) HIVES/SWELLING bupropion [From Wellbutrin] Allergy (Verified 08/27/23 11:57) hives, swelling HPI HPI PER GARNER: Details: 58yr old f here for f/u for pos c diff gene PCR and diarrhea RECAP: She tried the vanc for 10d but never got the rifaximin for 20d --? not covered by insurance feels it made no change she still has diarrhea she tried levsin didnt help her sx she still doesnt want to try fecal transplant she takes probiotic she feels hemorrhoids are acting up she is taking fiber Endoscopies: colonoscopy-- 05/2022--- normal random bx, tubular adenomas removed TEST: CT A/P:12/28-- diverticulosis, (prior scan with possible descending colitis) US abdo 12/2022--- nml mesenteric duplex-- 02/28/23--nml Labs: Hgb 11, stool pcr c diff pos several times REPT EGD/Normal Endoscopy Findings: esophagitis gastritis schatzki ring Colonoscopy Findings: diverticulosis colon polyps internal hemorrhoids path--TA removed, Stool testing: still pos for c diff gene but neg toxin, neg fecal lactoferrin INTERIM: she has been having vomiting several times diarrhea 12 times a day, loose like water she has mid abdominal pain no fevers no blood in stool sx worse with any type of food, can give her post prandial urgency EXAM: GENERAL: The patient is well developed and nontoxic. VITAL SIGNS:see workflow HEENT: Nonicteric sclerae, PERRLA, EOMI. Oropharynx clear. Moist mucous membranes. Conjunctivae appear well perfused. No thyroid mass. CHEST: Chest wall is nontender. HEART: Regular rate and rhythm without murmurs. LUNGS: Clear to auscultation bilaterally. ABDOMEN: Soft, positive bowel sounds, tender mid abdomen, no organomegaly.no flank tenderness SKIN: No rash, no excessive bruising, petechiae, or purpura. NEUROLOGIC: Cranial nerves II-XII intact without motor/sensory deficit. 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, no difference with vanc, but did not get rifaximin, levsin not helped either maybe malignant IBS-D or subacute IBD based on possibel colitis in past, also has breezy umbilical tenderness and pain Plan: 1/ zofran and PPI 2/ capsule endo 3/ CTE 4/ might check hormone levels PFSH Medical History Chronic abdominal pain Diverticular disease of colon Irritable bowel syndrome with diarrhea LLQ cramping Colitis Lower abdominal pain GERD (gastroesophageal reflux disease) Left lower quadrant pain Tubular adenoma of colon Sigmoid diverticulitis Acute diverticulitis Diarrhea Diverticulitis Abdominal pain GERD (gastroesophageal reflux disease) Chronic idiopathic constipation Constipation Surgical History History of intestinal surgery History of partial hysterectomy (~09/2006) Hx of hemorrhoidectomy Hx of colonoscopy History of esophagogastroduodenoscopy (EGD) Family History Father Cancer HTN (hypertension) Mother HTN (hypertension) Hyperthyroidism Migraine headache Maternal Grandmother History of breast cancer Paternal Grandmother History of breast cancer Family/Other Colon cancer Paternal Aunt Ovarian cancer Social History Household Members: Family and None Housing: Apartment Are you a primary healthcare manager to a significant other at home: No Do you presently have visiting nurse or other home services: No Alcohol intake: never Patient Tobacco Use Status: Never used Tobacco service: No Current occupational status: disabled Current occupational exposures/hazards: No Female Reproductive History Menstrual Age of Menarche: 7 Physical Exam Vital Signs: Last Vital Signs Pulse 76 08/27/23 12:00 BP 108/72 08/27/23 12:00 BMI result Body Mass Index 27.8 Assessment & Plan Assessment & Plan (1) Diarrhea: Code(s): R19.7 - Diarrhea, unspecified Category: Medical Plan: see above Orders: Orders CT enterography Today R10.33 - Periumbilical pain Medications: New esomeprazole magnesium 20 mg PO DAILY 30 caps 3RF peg-electrolyte soln 420 gram until fecal effluent is clear; do not exceed a total volume of 2,000 mL 240 mL PO Q10M 4,000 mL 0RF Refilled ondansetron 4 mg PO Q8H PRN 30 tabs 0RF nausea and vomiting Coding Level of Care Code Est Pt Level 4 (17348) Diagnoses Diarrhea R19.7
[2023-08-27 12:00] VITALS: BP 108/72; PULSE 76; BMI 27.8
== END 2023-08-27 13:26 | disposition home or self-care (01) ==
PROVIDERS: PCP Nurse Practitioner Family; Referring Provider Nurse Practitioner Family; Visit Provider Internal Medicine Gastroenterology
DX: R19.7 Diarrhea, unspecified (principal)
CPT/HCPCS: 99214

== ENCOUNTER → 2023-08-27 11:46 | Outpatient (BNVA) | payer MEDICAID, SELFPAY | PROVIDERS: PCP Nurse Practitioner Family; Visit Provider Internal Medicine Gastroenterology | DX: K21.9 Gastro-esophageal reflux disease without esophagitis (principal); R19.7 Diarrhea, unspecified; R14.0 Abdominal distension (gaseous); R10.33 Periumbilical pain | CPT/HCPCS: 99212 ==

== ENCOUNTER 2023-09-11 09:29 | Outpatient (REF) | payer MEDICAID, SELFPAY ==
--- NOTE | ~2023-09-11 | US_ITS ---
EXAMINATION: US RETROPERITONEAL LIMITED (RENAL ONLY) CLINICAL INFORMATION: Calculus of kidney. COMPARISON: Ultrasound abdomen complete 12/14/2022. CT abdomen and pelvis 12/09/2022. Renal ultrasound 08/31/2022. X-ray abdomen 09/01/2020 and 01/08/2017. TECHNIQUE: Real-time imaging of the kidneys. Limited visualization due to bowel gas. FINDINGS: RIGHT KIDNEY: 9.7 x 4.3 x 4.8 cm (SAG x AP x TRV). No hydronephrosis. No renal calculi. Renal cortical thickness is normal. Limited visualization. 0.8 cm midpole cyst with mural echogenicity characteristic of calcification. There is no specific indication for additional imaging at this time. LEFT KIDNEY: 9.8 x 4.8 x 4.5 cm (SAG x AP x TRV). Mild left caliectasis. No renal calculi. Renal cortical thickness is normal. 1.4 cm lower pole cyst with mural echogenicity characteristic of calcification. There is no specific indication for additional imaging at this time. US/US renal BI IMPRESSION: 1. Mild left caliectasis. No renal calculi. 2. Bilateral renal cysts with mural echogenicity characteristic of calcification. There is no specific indication for additional imaging at this time.
== END 2023-09-11 09:30 | disposition home or self-care (01) ==
LOC: HO.US 09:29
PROVIDERS: PCP Nurse Practitioner Family; Visit Provider Nurse Practitioner Family
DX: N20.0 Calculus of kidney (principal); N28.1 Cyst of kidney, acquired
CPT/HCPCS: 76775

== ENCOUNTER → 2023-10-11 07:42 | Outpatient (BNVA) | payer MEDICAID, SELFPAY | PROVIDERS: PCP Nurse Practitioner Family; Visit Provider Internal Medicine Gastroenterology | DX: R31.29 Other microscopic hematuria (principal); N28.1 Cyst of kidney, acquired | CPT/HCPCS: 91110 ==

== ENCOUNTER 2023-10-15 07:42 | Outpatient (AMB) | payer MEDICAID, SELFPAY ==
--- NOTE | 2023-10-15 08:04 | AM.OFFVISNUR ---
Intake Visit Reasons: CAPSULE ENDOSCOPY Allergies Penicillins [PENICILLINS] Allergy (Intermediate, Verified 08/27/23 11:57) HIVES/SWELLING bupropion [From Wellbutrin] Allergy (Verified 08/27/23 11:57) hives, swelling Nursing Note Patient presents for Capsule Endoscopy. Patient had no concerns with prep. I discussed Capsule Endoscopy with patient, risks and answered any questions.
== END 2023-10-15 08:04 | disposition home or self-care (01) ==
PROVIDERS: PCP Nurse Practitioner Family; Referring Provider Nurse Practitioner Family; Visit Provider Internal Medicine Gastroenterology
DX: K29.70 Gastritis, unspecified, without bleeding (principal); K29.80 Duodenitis without bleeding
CPT/HCPCS: 91110

== ENCOUNTER 2023-10-18 15:08 | Outpatient (AMB) | payer MEDICAID, SELFPAY ==
--- NOTE | 2023-10-18 15:13 | A.OFFVIS_ITS ---
Intake Visit Reasons: 1y/US(set) Intake Note: Patient presents today for follow up kidney cyst/ultrasound imaging completed: 09/11/23 Urology Medication: none Blood Thinner: none Meter Reader Required: Yes Meter Reader Services: Meter Reader Present Meter Reader Name: [id number] Accompanied by: Self / Same As Patient Allergies Penicillins [PENICILLINS] Allergy (Intermediate, Verified 10/18/23 15:31) HIVES/SWELLING bupropion [From Wellbutrin] Allergy (Verified 10/18/23 15:31) hives, swelling Medication List - Last Reconciled 10/18/23 by SAGE Hall- aripiprazole 20 mg PO QAM buspirone 15 mg PO BID cholecalciferol (vitamin D3) 25 mcg PO DAILY esomeprazole magnesium 20 mg PO DAILY galcanezumab-gnlm (Emgality Pen) 120 mg subcut Q4W hydrocortisone 2.5% (Proctozone-HC) 1 appl CA BID-QID PRN hyoscyamine sulfate (Levsin/SL) 0.125 mg sublingual BID-QID PRN lisinopril 20 mg PO DAILY loperamide 2 mg PO Q6H PRN metoprolol tartrate 25 mg PO BID nortriptyline 100 mg PO BEDTIME ondansetron 4 mg PO TID PRN 5 days ondansetron 4 mg PO Q8H PRN peg-electrolyte soln 420 gram 240 mL PO Q10M peppermint oil DR-ER (IBgard) 90 mg PO TID 30 days sucralfate (Carafate) 10 mL PO BID sumatriptan succinate 100 mg PO DAILY PRN zolpidem ER 12.5 mg PO BEDTIME PRN HPI Comments Details: Kacy is a pleasant Niuean-speaking 58-year-old female patient of Dr. Padilla. She has a past medical history of chronic idiopathic constipation, diarrhea, diverticulitis, GERD, irritable bowel syndrome, and renal cysts. She is being followed up on today via video telehealth for her renal cysts. Recent renal imaging results reviewed with the patient today mild left caliectasis. No renal calculi. Bilateral renal cysts with mural echogenicity characteristic of calcification. There is no specific indication for additional imaging at this time per radiology report. When asked she currently denies any bothersome urinary issues or concerns. She does report having followed up with field artillery basic previously at which time microscopic hematuria was noted during urinalysis at this office visit. We discussed at length potential causes of microscopic hematuria. She denies any previous history of nicotine dependence and or workplace chemical exposure. She denies any bothersome urinary issues or concerns. She denies urinary urgency, urinary frequency, incontinence, nocturia, hematuria, dysuria, foul smelling urine, changes to urinary stream, flank pain, fever, and or chills. She is happy with her current voiding parameters. She does however report ongoing issues with diarrhea and her GI issues. She reports having followed up with Dr. Sheehan and has had recent capsular study. She otherwise offers no issues or concerns at this time. [facility] Medical History Chronic abdominal pain Diverticular disease of colon Irritable bowel syndrome with diarrhea LLQ cramping Colitis Lower abdominal pain GERD (gastroesophageal reflux disease) Left lower quadrant pain Tubular adenoma of colon Sigmoid diverticulitis Acute diverticulitis Diarrhea Diverticulitis Abdominal pain GERD (gastroesophageal reflux disease) Chronic idiopathic constipation Constipation Surgical History History of intestinal surgery History of partial hysterectomy (~09/2006) Hx of hemorrhoidectomy Hx of colonoscopy History of esophagogastroduodenoscopy (EGD) Family History Father Cancer HTN (hypertension) Mother HTN (hypertension) Hyperthyroidism Migraine headache Maternal Grandmother History of breast cancer Paternal Grandmother History of breast cancer Family/Other Colon cancer Paternal Aunt Ovarian cancer Social History Household Members: Family and None Housing: Apartment Are you a primary manager primary care to a significant other at home: No Do you presently have visiting nurse or other home services: No Alcohol intake: never Patient Tobacco Use Status: Never used Tobacco service: No Current occupational status: disabled Current occupational exposures/hazards: No Female Reproductive History Menstrual Age of Menarche: 7 Review of Systems Eyes Reports no additional complaints ENT Reports no additional complaints Card Reports no additional complaints Resp Reports no additional complaints GI Reports as per HPI Reports as per HPI Musc Reports no additional complaints Neuro Reports no additional complaints Psych Reports no additional complaints Endo Reports no additional complaints Erik/Lymph Reports no additional complaints Aller/Immun Reports no additional complaints Physical Exam Const General: cooperative, healthy appearing, comfortable, no acute distress, well developed, alert and awake Orientation/consciousness: patient oriented x3 Resp Effort & Inspection: normal respiratory effort and able to speak in complete sentences Neuro General: patient oriented x3 Psych Speech and movement: Clear speech present Thought process: Normal thought process present Thought content: Normal thought content present Insight: Fair insight present (Psych) Judgement: Fair judgement present (Psych) Telehealth Telehealth Telehealth Platform: [employer] Location of provider rendering services: practice address Location of patient: address on file Patient Identification confirmed using: Name, : Yes Telehealth method: video Patient verbally consented to treatment: Yes Patient verbally consented to billing insurance company: Yes Patient informed of any privacy concerns related to visit: Yes Minutes spent on Phone/Video with Pt.: 15 Results Reviewed Results Reviewed: Date of Service: 09/11/23 EXAMINATION: US RETROPERITONEAL LIMITED (RENAL ONLY) FINDINGS: RIGHT KIDNEY: 9.7 x 4.3 x 4.8 cm (SAG x AP x TRV). No hydronephrosis. No renal calculi. Renal cortical thickness is normal. Limited visualization. 0.8 cm midpole cyst with mural echogenicity characteristic of calcification. There is no specific indication for additional imaging at this time. LEFT KIDNEY: 9.8 x 4.8 x 4.5 cm (SAG x AP x TRV). Mild left caliectasis. No renal calculi. Renal cortical thickness is normal. 1.4 cm lower pole cyst with mural echogenicity characteristic of calcification. There is no specific indication for additional imaging at this time. IMPRESSION: 1. Mild left caliectasis. No renal calculi. 2. Bilateral renal cysts with mural echogenicity characteristic of calcification. There is no specific indication for additional imaging at this time. Assessment & Plan Assessment & Plan (1) Renal cyst: Code(s): N28.1 - Cyst of kidney, acquired Category: Medical (2) Microscopic hematuria: Code(s): R31.29 - Other microscopic hematuria Category: Medical Plan Recent renal imaging results reviewed with the patient today; as noted above. Patient currently denies any bothersome urinary issues or concerns. She reports be happy with current voiding parameters. Discussed at length potential causes of microscopic hematuria. Will continue with surveillance monitoring at this time. Will obtain retroperitoneal ultrasound in 1 year. Follow-up in 1 year with imaging to be completed prior; or sooner with any issues, concerns, and or questions. Orders: Orders US retroperitoneal comp 1 Year N28.1 - Cyst of kidney, acquired, R31.29 - Other microscopic hematuria Patient Instructions: The patient had an opportunity to ask questions regarding the treatment plan. All questions were answered. Physical exam, labs, and imaging were discussed and reviewed in detail. As well as risks, benefits, and discussion of treatment choices. No major barriers to understanding were identified. The patient expressed understanding and agreement with the above treatment plan. The patient was made aware they should contact our office by phone for worsening of their current condition, the appearance of new symptoms, or with any questions or concerns. Compliance is encouraged with any medications and follow up testing that is ordered. It is a privilege to be allowed the opportunity to participate in? your urological care.? Again, if you have any questions or concerns If you have any questions or concerns please do not hesitate to contact me. The office is [phone]. This note is constructed using voice recognition software. While every effort has been made to ensure accuracy director nursery school errors may have been included. Yours sincerely, TAMELA Hall Coding Level of Care Code Tele Est Pt Level 3 (45260) Diagnoses Renal cyst N28.1 Microscopic hematuria R31.29 Time Spent (min) 15
== END 2023-10-18 15:36 | disposition home or self-care (01) ==
LOC: HO.HUSH 15:08
PROVIDERS: PCP Nurse Practitioner Family; Visit Provider Nurse Practitioner Family
DX: N28.1 Cyst of kidney, acquired (principal); R31.29 Other microscopic hematuria
CPT/HCPCS: 99213

== ENCOUNTER → 2023-10-18 15:08 | Outpatient (BNVA) | payer MEDICAID, SELFPAY | PROVIDERS: PCP Nurse Practitioner Family; Visit Provider Nurse Practitioner Family ==

== ENCOUNTER 2023-10-23 09:21 | Outpatient (REF) | payer MEDICAID, SELFPAY ==
--- NOTE | ~2023-10-23 | CT_ITS ---
EXAMINATION: CT ENTEROGRAPHY ABDOMEN AND PELVIS WITH CONTRAST Examination performed October 23, 2023, became available for interpretation January 23, 2024 CLINICAL INFORMATION: Periumbilical pain COMPARISON: December 09, 2022 TECHNIQUE: Study performed with oral VoLumen (1350 mL) and 480 mL of water to distend the abdomen. The patient was injected with 85 mL Omnipaque 350 intravenous contrast which was administered without adverse effect. Coronal and sagittal reformatted images were obtained at the technologist's workstation. This CT examination was performed using dose optimization techniques as appropriate, variously including the following: *Automated exposure control *Adjustment of mA and/or kV according to patient size (this includes techniques or standardized protocols for targeted exams where dose is matched to indication/reason for exam; i.e. extremities or head) *Use of iterative reconstruction technique DLP: 414 mGy-cm FINDINGS: GASTROINTESTINAL FINDINGS: Stomach: Well-distended and normal in appearance. Small intestine: Satisfactorily distended and normal in appearance. Large intestine: Well-distended and normal in appearance. No perirectal changes demonstrated . No evidence of diverticulitis or diverticulosis. The appendix is normal. Additional findings: No abnormal enhancement of the vasa recta or significant mesenteric or retroperitoneal lymphadenopathy is seen. No abdominal abscess or fistulous tract demonstrated. ABDOMINAL AND PELVIC CT FINDINGS: Liver, gallbladder, biliary tract: Liver is homogeneous without masses or ductal dilatation seen. Gallbladder is unremarkable without evidence of cholelithiasis. Pancreas: Unremarkable Spleen: Unremarkable Adrenal glands and kidneys: Adrenal glands reveals no nodularity. Both kidneys are normal with small cyst in the interpolar cortex of left kidney, measured 1.2 cm. Ureters and bladder: Unremarkable Lymphovascular structures: There is no aortic aneurysmal dilatation. There is no mesenteric lymphadenopathy. Bones: There are degenerative changes in facet joints of L4-5 and L5-S1 Lung bases: Clear CT/CT enterography IMPRESSION: 1. No explanation for abdominal pain. 2. Small cyst in the left kidney. 3. Degenerative changes in facet joints of L4-5 and L5-S1. Electronically signed by: Annette Zaidi MD 01/23/2024 01:09 PM [facility]
[2023-10-23] MEDS: iohexoL 350 MG/ML 100 ML INFUS..BTL 85 ML IV (12:04)
[2023-10-24 11:22] LABS: Creatinine POC 0.9 mg/dL (0.5-1.4); GFR POC > 60
== END 2023-10-23 09:22 | disposition home or self-care (01) ==
LOC: HO.CT 09:21
PROVIDERS: Visit Provider Internal Medicine Gastroenterology
DX: R10.33 Periumbilical pain (principal)
CPT/HCPCS: 74177; 82565; Q9967

== ENCOUNTER 2023-10-26 11:31 | Outpatient (REF) | payer MEDICAID, SELFPAY ==
[2023-10-26 13:07] LABS: Blood Urea Nitrogen 9 mg/dL (9-16); Estimated Glomerular Filt Rate > 60
[2023-10-29 09:38] LABS: IgA 217 mg/dL (47-310); IgG 895 mg/dL (600-1640); IgM 64 mg/dL (50-300)
[2023-10-31 20:28] LABS: Calcitonin <2 pg/mL (<=5)
== END 2023-10-26 11:32 | disposition home or self-care (01) ==
LOC: HO.LAB 11:31
PROVIDERS: PCP Nurse Practitioner Family; Visit Provider Internal Medicine Gastroenterology
DX: R19.7 Diarrhea, unspecified (principal); N28.1 Cyst of kidney, acquired
CPT/HCPCS: 36415; 82308; 82565; 82784; 82943; 84307; 84520; 84586; 86140; 99212

== ENCOUNTER 2023-10-26 11:31 | Outpatient (AMB) | payer MEDICAID, SELFPAY ==
[2023-10-26 11:56] VITALS: BMI 27.6
--- NOTE | 2023-10-26 11:56 | MHC.OFFVIS ---
Vital Signs 10/26/23 11:56 Height 5 ft 4 in Weight 160 lb 14.999 oz BMI 27.6 BP not taken reason Patient Refused Intake Visit Reasons: 8 week follow up Intake Note: Kacy presents in the office as a 8 week follow up CC: She states that she is still having the pains and symptoms that she was having prior - she had tests done that she would like results to as there have been no changes. Weather Stripper Required: Yes Weather Stripper Name: [id number] Allergies Penicillins [PENICILLINS] Allergy (Intermediate, Verified 10/26/23 11:56) HIVES/SWELLING bupropion [From Wellbutrin] Allergy (Verified 10/26/23 11:56) hives, swelling HPI HPI 8 week follow up: Details: 58yr old f here for f/u for pos c diff gene PCR and diarrhea RECAP: She tried the vanc for 10d but never got the rifaximin for 20d --? not covered by insurance feels it made no change she still has diarrhea she tried levsin didnt help her sx she still doesnt want to try fecal transplant she takes probiotic she feels hemorrhoids are acting up she is taking fiber Endoscopies: colonoscopy-- 05/2022--- normal random bx, tubular adenomas removed TEST: CT A/P:12/28-- diverticulosis, (prior scan with possible descending colitis) US abdo 12/2022--- nml mesenteric duplex-- 02/28/23--nml Labs: Hgb 11, stool pcr c diff pos several times REPT EGD/[facility] [facility] Findings: esophagitis gastritis schatzki ring Colonoscopy Findings: diverticulosis colon polyps internal hemorrhoids path--TA removed, Stool testing: still pos for c diff gene but neg toxin, neg fecal lactoferrin INTERIM: she has been having issues for her hemorrhoids, bleeding and tender still having diarrhea capsule with gastritis and mild duodenitis she tried carafate but did not find it helped she did not receive esomeprazole last time she has migraines tried botox and other meds EXAM: GENERAL: The patient is well developed and nontoxic. VITAL SIGNS:see workflow HEENT: Nonicteric sclerae, PERRLA, EOMI. Oropharynx clear. Moist mucous membranes. Conjunctivae appear well perfused. No thyroid mass. CHEST: Chest wall is nontender. HEART: Regular rate and rhythm without murmurs. LUNGS: Clear to auscultation bilaterally. ABDOMEN: Soft, positive bowel sounds, tender mid abdomen, no organomegaly.no flank tenderness SKIN: No rash, no excessive bruising, petechiae, or purpura. NEUROLOGIC: Cranial nerves II-XII intact without motor/sensory deficit. 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, no difference with vanc, but did not get rifaximin, levsin not helped either maybe malignant IBS-D or subacute IBD, or could still be c diff Plan: 1/ await formal CTe but to my revoew some thickening of stomach and duodenum, co relates with findings on capsule 2/ check hormone levels 3/ refer Dr sebastian for hemorrhoids 4/ resent PPI, also sent lomotil 5/ keep fecal transplant in back of the mind [facility] Medical History Chronic abdominal pain Diverticular disease of colon Irritable bowel syndrome with diarrhea LLQ cramping Colitis Lower abdominal pain GERD (gastroesophageal reflux disease) Left lower quadrant pain Tubular adenoma of colon Sigmoid diverticulitis Acute diverticulitis Diarrhea Diverticulitis Abdominal pain GERD (gastroesophageal reflux disease) Chronic idiopathic constipation Constipation Surgical History History of intestinal surgery History of partial hysterectomy (~09/2006) Hx of hemorrhoidectomy Hx of colonoscopy History of esophagogastroduodenoscopy (EGD) Family History Father Cancer HTN (hypertension) Mother HTN (hypertension) Hyperthyroidism Migraine headache Maternal Grandmother History of breast cancer Paternal Grandmother History of breast cancer Family/Other Colon cancer Paternal Aunt Ovarian cancer Social History Household Members: Family and None Housing: Apartment Are you a primary rn home care to a significant other at home: No Do you presently have visiting nurse or other home services: No Alcohol intake: never Patient Tobacco Use Status: Never used Tobacco service: No Current occupational status: disabled Current occupational exposures/hazards: No Female Reproductive History Menstrual Age of Menarche: 7 Physical Exam Vital Signs: BMI result Body Mass Index 27.6 Assessment & Plan Assessment & Plan (1) Diarrhea: Code(s): R19.7 - Diarrhea, unspecified Category: Medical Plan: see above (2) Hemorrhoids: Code(s): K64.9 - Unspecified hemorrhoids Category: Medical Plan: see above Orders: Orders Glucagon Today R19.7 - Diarrhea, unspecified Vasoactive Intestinal Polypept Today R19.7 - Diarrhea, unspecified Calcitonin Today R19.7 - Diarrhea, unspecified C Reactive Protein Today R19.7 - Diarrhea, unspecified Somatostatin Today R19.7 - Diarrhea, unspecified Immunoglobulins,IgG IgA IgM Today R19.7 - Diarrhea, unspecified Referrals General Surgery Referral K64.9 - Unspecified hemorrhoids Medications: New diphenoxylate-atropine 2.5-0.025 mg (Lomotil) 1 tab PO BID PRN 60 tabs 0RF diarrhea Refilled esomeprazole magnesium 20 mg PO DAILY 30 caps 3RF Coding Level of Care Code Est Pt Level 3 (41877) Diagnoses Diarrhea R19.7 Hemorrhoids K64.9
== END 2023-10-26 12:25 | disposition home or self-care (01) ==
PROVIDERS: PCP Nurse Practitioner Family; Referring Provider Nurse Practitioner Family; Visit Provider Internal Medicine Gastroenterology
DX: R19.7 Diarrhea, unspecified (principal); K64.9 Unspecified hemorrhoids
CPT/HCPCS: 99213

== ENCOUNTER 2023-11-07 08:45 | Outpatient (AMB) | payer MEDICAID, SELFPAY ==
[2023-11-07 09:00] VITALS: BMI 27.6
--- NOTE | 2023-11-07 09:00 | A.OFFVIS_ITS ---
Vital Signs 11/07/23 09:00 Height 5 ft 4 in Weight 160 lb 14.999 oz BMI 27.6 Intake Visit Reasons: hemorrhoids Intake Note: This patient presents for hemorrhoids assessment. Pt c/o; reports LLQ pain radiates, reports bleeding hemorrhoids, reports rectal and LLQ pain. Teacher Education Instructor Required: Yes Teacher Education Instructor Language: Supervisor Anodizing Services: Teacher Education Instructor Present Teacher Education Instructor Name: Ihsan Information Interpreted: non-clinical & clinical Accompanied by: Self / Same As Patient Allergies Penicillins [PENICILLINS] Allergy (Intermediate, Verified 11/07/23 09:05) HIVES/SWELLING bupropion [From Wellbutrin] Allergy (Verified 11/07/23 09:05) hives, swelling Medication List - Last Reconciled 11/07/23 by Fritz Veliz MD aripiprazole 15 mg PO QAM buspirone 15 mg PO BID cholecalciferol (vitamin D3) 25 mcg PO DAILY diphenoxylate-atropine 2.5-0.025 mg (Lomotil) 1 tab PO BID PRN esomeprazole magnesium 20 mg PO DAILY galcanezumab-gnlm (Emgality Pen) 120 mg subcut Q4W hydrocortisone 2.5% (Proctozone-HC) 1 appl [place] BID-QID PRN hyoscyamine sulfate (Levsin/SL) 0.125 mg sublingual BID-QID PRN lisinopril 20 mg PO DAILY loperamide 2 mg PO Q6H PRN metoprolol tartrate 25 mg PO BID nortriptyline 100 mg PO BEDTIME ondansetron 4 mg PO TID PRN 5 days ondansetron 4 mg PO Q8H PRN peg-electrolyte soln 420 gram 240 mL PO Q10M peppermint oil DR-ER (IBgard) 90 mg PO TID 30 days riboflavin (vitamin B2) (Vitamin B-2) 400 mg PO DAILY sucralfate (Carafate) 10 mL PO BID sumatriptan succinate 100 mg PO DAILY PRN zolpidem ER 12.5 mg PO BEDTIME PRN HPI HPI hemorrhoids: Details: She is here because of problematic hemorrhoids. She describes frequent bleeding with bowel movements describes bright blood per rectum. She says that hemorrhoids often times he was swollen. She has associated pain with this She has had a long history of GI issues as well. She has had diverticulitis and C diff colitis in the past. She has chronic diarrhea as well as chronic abdominal pain. She has had multiple workups before with GI including capsule endoscopy because of her multiple GI issues She says she has frequent diarrhea and this irritates her hemorrhoids. [facility] Medical History (Updated 11/07/23 @ 09:40 by Fritz Veliz MD) Bleeding hemorrhoids Chronic abdominal pain Diverticular disease of colon Irritable bowel syndrome with diarrhea LLQ cramping Colitis Lower abdominal pain GERD (gastroesophageal reflux disease) Left lower quadrant pain Tubular adenoma of colon Sigmoid diverticulitis Acute diverticulitis Diarrhea Diverticulitis Abdominal pain GERD (gastroesophageal reflux disease) Chronic idiopathic constipation Constipation Surgical History History of intestinal surgery History of partial hysterectomy (~09/2006) Hx of hemorrhoidectomy Hx of colonoscopy History of esophagogastroduodenoscopy (EGD) Family History Father Cancer HTN (hypertension) Mother HTN (hypertension) Hyperthyroidism Migraine headache Maternal Grandmother History of breast cancer Paternal Grandmother History of breast cancer Family/Other Colon cancer Paternal Aunt Ovarian cancer Social History Household Members: Family and None Housing: Apartment Are you a primary child care supervisor to a significant other at home: No Do you presently have visiting nurse or other home services: No Alcohol intake: never Patient Tobacco Use Status: Never used Tobacco service: No Current occupational status: disabled Current occupational exposures/hazards: No Female Reproductive History Menstrual Age of Menarche: 7 Review of Systems Const Denies chills and Denies fever(s) Card Denies chest pain Resp Denies cough GI Reports abdominal pain and Reports diarrhea Physical Exam Vital Signs: BMI result Body Mass Index 27.6 Const General: no acute distress Resp Effort & Inspection: normal respiratory effort Cardio Rate: regular rate GI Other: Rectal exam shows external hemorrhoids with prolapsing internal hemorrhoids on the left and right side, anoscopy deferred because of her discomfort at this time, no thrombosis Palpation (GI): Soft to palpation, not firm, Tenderness to palpation present (GI) (Some left lower quadrant tenderness) and no guarding Assessment & Plan Assessment & Plan (1) Bleeding hemorrhoids: Code(s): K64.9 - Unspecified hemorrhoids Category: Medical Plan: She has had known hemorrhoids and has frequent bleeding with this with bowel movements. She does have multiple GI complaints including frequent diarrhea and she says that this irritates her hemorrhoids. I did explain to her the option of hemorrhoidectomy. I discussed with the technique of this procedure. I reviewed the risks, benefits, and alternatives. She does have other ongoing GI issues at this time and explained to her that she may have improvement with the hemorrhoids symptoms if her GI issues as better controlled. She says she will come back to the office down the line to be re- evaluated with regards to her hemorrhoids for possible surgery. She is to continue to follow up with GI with regards to her chronic GI issues. Coding Level of Care Code Est Pt Level 3 (61407) Diagnoses Bleeding hemorrhoids K64.9
== END 2023-11-07 09:35 | disposition home or self-care (01) ==
PROVIDERS: PCP Nurse Practitioner Family; Referring Provider Nurse Practitioner Family; Visit Provider Surgery
DX: K64.9 Unspecified hemorrhoids (principal)
CPT/HCPCS: 99213

== ENCOUNTER → 2023-11-07 08:45 | Outpatient (BNVA) | payer MEDICAID, SELFPAY | PROVIDERS: PCP Nurse Practitioner Family; Visit Provider Surgery ==

== ENCOUNTER 2023-11-07 15:12 | Emergency (ER) | payer MEDICAID, SELFPAY ==
--- NOTE | ~2023-11-07 | CT_ITS ---
EXAMINATION: CT ABDOMEN AND PELVIS WITH CONTRAST CLINICAL INFORMATION: Left lower quadrant pain with nausea, vomiting and diarrhea COMPARISON: CT enterography 10/23/[address] abdomen and pelvis 12/09/2022 TECHNIQUE: Multidetector volumetric images were obtained from the superior aspect of the liver through the pubic symphysis following administration 85 mL of Omnipaque 350 intravenous contrast. Sagittal and coronal reformatted images were obtained on the technologist's workstation. Oral contrast: No This CT examination was performed using dose optimization techniques as appropriate, variously including the following: *Automated exposure control *Adjustment of mA and/or kV according to patient size (this includes techniques or standardized protocols for targeted exams where dose is matched to indication/reason for exam; i.e. extremities or head) *Use of iterative reconstruction technique DLP: 577 mGy-cm FINDINGS: LUNG BASES: The visualized lung bases are unremarkable. LIVER, GALLBLADDER, AND BILIARY TREE: The liver is normal in size, shape, and attenuation. No focal hepatic lesion or biliary ductal dilatation is present. The gallbladder is unremarkable with no evidence of radiopaque gallstones, gallbladder wall thickening, or obvious pericholecystic inflammatory changes. PANCREAS: Unremarkable. SPLEEN: Unremarkable. ADRENAL GLANDS: Unremarkable. KIDNEYS AND URETERS: The kidneys are normal in size, shape, and attenuation. No hydronephrosis, hydroureter, or calculi seen. No perinephric stranding. Bilateral small benign Bosniak class I renal cysts are noted which require no additional imaging or follow-up. No solid renal masses are seen. BLADDER: Unremarkable. GASTROINTESTINAL TRACT: There is a persistent lobular area seen in the mid sigmoid colon (2:71). On the CT enterography there is a suggestion of an apple core type lesion in the same location. There are some small nonenlarged surrounding lymph nodes. There is some mild dilatation of small bowel loops with some thickening (for example 6:44) but no evidence of obstruction . The small bowel loops appear more prominent and thickened when compared to the recent CT enterography. The appendix is unremarkable. ABDOMINAL WALL: No significant hernia is appreciated. LYMPH NODES: Normal. VASCULAR: Unremarkable. Left renal vein is retroaortic. PELVIC VISCERA: The uterus is not seen. An abnormal adnexal mass is not detected. No free intraperitoneal fluid is present. OSSEOUS STRUCTURES: Unremarkable. CT/CT abdomen pelvis w IV con IMPRESSION: 1. There is a persistent lobular area seen in the mid sigmoid colon. On the CT enterography there is a suggestion of an apple core type lesion in the same location. Colonoscopy is recommended for further evaluation. 2. There is some mild dilatation of small bowel loops with some thickening but no evidence of obstruction. The small bowel loops appear more prominent and thickened when compared to the recent CT enterography. Differential diagnosis would include enteritis. 3. Other incidental findings as described above. Fleischner guidelines were followed. Electronically signed by: Tong Sargent MD 11/07/2023 09:46 PM EDT
--- NOTE | 2023-11-07 15:58 | ED.GENADULT ---
HPI - General Adult General Chief complaint: Abdominal Pain Stated complaint: leg pain Time Seen by Provider: 11/07/23 18:07 Source: patient Mode of arrival: ambulatory Limitations: language barrier (Mongolian-speaking correspondence representative utilized) History of Present Illness HPI narrative: Patient is a 58-year-old female with past medical history of diverticulitis, C diff colitis, IBS, GERD, hemorrhoids who presents emergency department for evaluation of left lower quadrant abdominal pain. Onset was 5-6 days ago. Has progressively worsened. She endorses having bright red blood per rectum with bowel movements, she was evaluated with Dr. Veliz today for her hemorrhoids, discussed potential hemorrhoidectomy in the future, patient to follow-up when her chronic GI issues are better controlled. She states that it is common for her to have multiple episodes of liquid diarrhea daily, chronic nausea, and vomiting after eating. She had reports that she follows closely with Dr. Sheehan. However, the left lower quadrant pain is new and not her typical chronic baseline, she has experienced similar pain in the past when she experienced diverticulitis. She denies associated symptoms. Related Data Home Medications ?Medication ?Instructions ?Recorded ?Confirmed galcanezumab-gnlm 120 mg/mL 120 mg subcut Q4W 11/25/21 11/07/23 subcutaneous pen injector (Emgality Pen) lisinopril 20 mg tablet 20 mg PO DAILY 11/25/21 11/07/23 metoprolol tartrate 25 mg tablet 25 mg PO BID 11/25/21 11/07/23 nortriptyline 50 mg capsule 100 mg PO BEDTIME 11/25/21 11/07/23 sumatriptan succinate 100 mg tablet 100 mg PO DAILY PRN migraine 11/25/21 11/07/23 zolpidem 12.5 mg tablet,extended 12.5 mg PO BEDTIME PRN Insomnia 11/25/21 11/07/23 release,multiphase buspirone 15 mg tablet 15 mg PO BID 07/14/22 11/07/23 cholecalciferol (vitamin D3) 25 25 mcg PO DAILY 09/20/22 11/07/23 mcg (1,000 unit) tablet aripiprazole 15 mg tablet 15 mg PO QAM 10/26/23 11/07/23 riboflavin (vitamin B2) 100 mg 400 mg PO DAILY 10/26/23 11/07/23 tablet (Vitamin B-2) Previous Rx's ?Medication ?Instructions ?Recorded ondansetron 4 mg disintegrating 4 mg PO TID PRN nausea and 02/28/22 tablet vomiting 5 days #30 tabs loperamide 2 mg capsule 2 mg PO Q6H PRN Diarrhea #20 caps 08/20/22 hyoscyamine sulfate 0.125 mg 0.125 mg sublingual BID-QID PRN 06/22/23 sublingual tablet (Levsin/SL) dyspepsia #30 tabs hydrocortisone 2.5 % topical cream 1 appl IA BID-QID PRN hemorrhoids 07/13/23 with perineal applicator #30 grams (Proctozone-HC) peppermint oil 90 mg 90 mg PO TID 30 days #90 ea 07/26/23 capsule,delayed,extended release (IBgard) ondansetron 4 mg disintegrating 4 mg PO Q8H PRN nausea and 08/27/23 tablet vomiting #30 tabs peg-electrolyte solution 420 gram 240 ml PO Q10M #4,000 mL 08/27/23 oral solution sucralfate 100 mg/mL oral 10 ml PO BID #1,000 mL 09/11/23 suspension (Carafate) diphenoxylate-atropine 2.5 1 tab PO BID PRN diarrhea #60 tabs 10/26/23 mg-0.025 mg tablet (Lomotil) esomeprazole magnesium 20 mg 20 mg PO DAILY #30 caps 10/26/23 capsule,delayed release Allergies Allergy/AdvReac Type Severity Reaction Status Date / Time Penicillins [PENICILLINS] Allergy Intermediate HIVES/SWELL Verified 11/07/23 16:02 ING bupropion [From Wellbutrin] Allergy hives, Verified 11/07/23 16:02 swelling Review of Systems Review of Systems: Yes all other systems are reviewed and are negative PMFSH Past Medical History Attestation statement: The following information was validated with the patient. Source: old records reviewed Medical History Bleeding hemorrhoids Chronic abdominal pain Diverticular disease of colon Irritable bowel syndrome with diarrhea LLQ cramping Colitis Lower abdominal pain GERD (gastroesophageal reflux disease) Left lower quadrant pain Tubular adenoma of colon Sigmoid diverticulitis Acute diverticulitis Diarrhea Diverticulitis Abdominal pain GERD (gastroesophageal reflux disease) Chronic idiopathic constipation Constipation Surgical History History of intestinal surgery History of partial hysterectomy (~09/2006) Hx of hemorrhoidectomy Hx of colonoscopy History of esophagogastroduodenoscopy (EGD) Family History Family History Father Cancer HTN (hypertension) Mother HTN (hypertension) Hyperthyroidism Migraine headache Maternal Grandmother History of breast cancer Paternal Grandmother History of breast cancer Family/Other Colon cancer Paternal Aunt Ovarian cancer Social History Social History Household Members: Family and None Housing: Apartment Are you a primary ostomy care nurse to a significant other at home: No Do you presently have visiting nurse or other home services: No Alcohol intake: never Patient Tobacco Use Status: Never used Tobacco Advance Directives: No Advance Directives Information Provided: No Patient : No service: No Current occupational status: disabled Current occupational exposures/hazards: No Physical Exam ED Vital Signs: Vital Signs - 24 hr 11/07/23 16:00 11/07/23 18:00 11/07/23 21:16 Temperature 97.9 F 97.5 F 98.2 F Pulse Rate 67 64 71 Respiratory Rate 20 15 15 Blood Pressure 110/71 119/58 L 120/57 L Pulse Oximetry 98 100 97 Oxygen Delivery Method Room Air Room Air Room Air 11/07/23 23:10 Temperature 97.9 F Pulse Rate 60 Respiratory Rate 16 Blood Pressure 118/62 Pulse Oximetry 98 Oxygen Delivery Method BMI result Body Mass Index 27.6 Appearance: Alert.?Oriented to person, place and time. No acute distress.?Normal affect. Eyes: Pupils equal, round and reactive to light.? ENT: Pharynx normal.?? Neck: Normal inspection.? Neck supple.?? CVS: Heart sounds normal. Normal heart rate and rhythm.? Pulses normal.?? Respiratory: No respiratory distress.? Lung sounds clear to auscultation bilaterally?? Abdomen: Soft left lower quadrant tenderness upon palpation, no rigidity. No CVAT. Normoactive bowel sounds. No pulsatile mass.?? Skin: Skin warm and dry.? Normal skin color.? Extremities: No lower extremity edema.? Neuro: Moves all extremities spontaneously. Sensation intact bilaterally. CN II-XII intact. No focal neuro deficits. Ambulates with normal steady gait. Course Course Course Narrative: This is a rapid medical exam performed by Villa Zafar NP: Additional HPI, ROS, PE not included below will be deferred to primary provider. Patient is a 58-year-old Mongolian speaking female with history of diverticulitis, IBS, sees Dr. Veliz for hemorrhoids presenting to the ED with complaint of LLQ since Sunday. Denies fevers. Reports vomiting and diarrhea. Rates pain at 10/. Plan: labs, UA likely needs CT Reevaluation(s) Reevaluation #1: CT of the abdomen and pelvis reveals persistent lobular area of the mid sigmoid colon with apple-core type lesion in the same location on recent CT enterography 3 with recommendation for colonoscopy for further evaluation, mild dilation of small bowel loops no thickening or obstruction, likely enteritis. As per HPI, patient endorses that the frequency of her nausea vomiting and diarrhea is consistent with what is her typical baseline, it is the pain in the left lower quadrant that was concerning new finding. No evidence of nephrolithiasis or hydronephrosis to suggest renal colic. No abnormal adnexal mass, or large cyst that might suggest possible ovarian torsion. Denies pelvic/vaginal symptoms, lower suspicion for TOA. Declines pelvic examination. Recommend close outpatient follow-up with Gastroenterology for management of ongoing symptoms, discussed strict return precautions. Unable to obtain stool sample for PI panel/C difficile testing, as patient did not have any episodes of diarrhea while here. Medications Administered Discontinued Medications Generic Name Dose Route Start Last Admin Trade Name Myles PRN Reason Stop Dose Admin Hydromorphone HCl 0.5 mg 11/07/23 18:49 11/07/23 19:20 Hydromorphone Hcl 0.5 Mg/0.5 Ml Syringe IVPUSH 11/07/23 18:50 0.5 mg ONCE ONE Administration Protocol Sodium Chloride 1,000 mls @ 999 mls/hr 11/07/23 19:00 11/07/23 19:19 Ns IV 11/07/23 20:00 999 mls/hr .Q1H1M PATRICK Administration Iohexol 100 ml 11/07/23 19:27 11/07/23 19:28 Iohexol 350 Mg/Ml 100 Ml Infus..Btl IV 11/07/23 19:28 85 ml ONCE ONE Administration Medical Decision Making Medical Decision Making [facility] Narrative: Patient is a 58-year-old female with past medical history of diverticulitis, C diff colitis, IBS, GERD, hemorrhoids presenting to emergency department for evaluation of new onset left lower quadrant abdominal pain over the past 5-6 days in the setting of chronic nausea vomiting and diarrhea as per HPI. She is notably tender, with guarding to the left lower quadrant, though abdomen is soft does not have apparent rigidity. She was evaluated today by Dr. Veliz for her hemorrhoids as per HPI, discussed elective hemorrhoidectomy in the future when her gastrointestinal issues are better controlled. She most recently saw GI 10/26/2023, she had prior positive C diff gene PCR testing, trialed vancomycin for 10 days but never took rifaximin for 20 days, not certain whether there was difficulty with insurance coverage, declined consideration of fecal transplant, symptoms have persisted despite multiple treatments by patient's account. Per Dr. 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 Recently prescribed PPI for gastritis/mild duodenitis, received prescription for Lomotil. Differential Diagnosis Differential Diagnoses: The differential diagnosis associated with the presentation includes (See narrative above) Admission/Observation Consideration of admission/observation: Escalation of care including admission/observation considered (See narrative above and course narrative for further detail) Lab Data [facility] Lab Attestation statement: I reviewed the patient's lab results. CBC is without leukocytosis, has a mild normocytic anemia that does not meet transfusion criteria, no thrombocytopenia. No electrolyte derangement. No JEREMY. LFTs within normal range. 11/07/23 16:14 11/07/23 16:14 Labs: Lab Results 11/07/23 Range/Units 16:14 WBC 6.2 (4.8-10.8) X10*3/uL RBC 4.29 (4.20-5.50) X10*6/uL Hgb 11.7 L (12.0-16.0) g/dl Hct 36.7 L (37.0-47.0) % MCV 85.5 (80.0-98.0) fL MCH 27.3 (27.0-33.0) pg MCHC 31.9 (31.0-35.0) g/dl RDW 14.5 (11.0-16.0) % Plt Count 313 (160-400) X10*3/uL MPV 8.9 L (9.4-12.3) fL Immature Gran % (Auto) 0.2 (0.0-0.4) % Neut % (Auto) 42.1 L (45-73) % Lymph % (Auto) 47.3 H (20-40) % [place] % (Auto) 8.0 (2-11) % Eos % (Auto) 1.8 (0-4) % Baso % (Auto) 0.6 (0-2) % Lymph # (Auto) 2.9 (1.2-4.9) X10*3/uL [place] # (Auto) 0.5 (0.1-1.2) X10*3/uL Eos # (Auto) 0.1 (0.0-0.4) X10*3/uL Baso # (Auto) 0.0 (0.0-0.2) X10*3/uL Abs Immat Gran (auto) 0.01 (0.00-0.03) X10*3/uL Absolute Neuts (auto) 2.6 (2.0-8.3) x10*3/uL Absolute Nucleated RBC 0.000 (0.0-0.012) X10*3/uL Nucleated RBC % (auto) 0.0 (0.0-0.2) /100WBC PT 11.1 (10.9-12.4) SEC INR 1.0 (0.9-1.1) Sodium 141 (135-145) mmol/L Potassium 4.4 (3.3-5.1) mmol/L Chloride 106 (96-108) mmol/L Carbon Dioxide 29 (22-29) mmol/L Anion Gap 10 L (12-20) BUN 10 (9-16) mg/dL Creatinine 0.81 (0.5-1.4) mg/dL Estim Creat Clear Calc 73.2 Estimated GFR > 60 Random Glucose 103 (60-115) mg/dL Calcium 9.4 (8.4-10.2) mg/dL Magnesium 2.1 (1.6-2.6) mg/dL Total Bilirubin 0.3 (0.0-1.0) mg/dL AST 16 (5-31) U/L ALT 15 (0-31) U/L Alkaline Phosphatase 55 (39-117) U/L C-Reactive Protein 0.13 (< or = 0.50) mg/dL Total Protein 7.0 (6.5-8.0) g/dL Albumin 4.0 (3.5-5.0) g/dL Radiology Impression Discussion of test interpretation with radiology: I have reviewed the radiologist's reading. Radiologist Impression: CT/CT abdomen pelvis w IV con IMPRESSION: 1. There is a persistent lobular area seen in the mid sigmoid colon. On the CT enterography there is a suggestion of an apple core type lesion in the same location. Colonoscopy is recommended for further evaluation. 2. There is some mild dilatation of small bowel loops with some thickening but no evidence of obstruction. The small bowel loops appear more prominent and thickened when compared to the recent CT enterography. Differential diagnosis would include enteritis. 3. Other incidental findings as described above. External Record Review External record reviewed: Outpatient record (See narrative above) Prescription Management I considered prescription management with: Pain Medication and Antibiotic Critical Care Time Critical Care Time Critical Care Time: Yes Total Critical Care Time: 35 Attestation: I personally attest to this critical care time spent taking care of the patient exclusive of all other billable procedures was approximately 35 minutes including initial evaluation of patient, ordering tests, Dilaudid IV and re-evaluation, documentation, re-evaluation. Discharge Plan Discharge Clinical Impression: Enteritis Patient Disposition: Home, Self-Care Instructions: Enteritis (ED) Additional Instructions: Patient is a you are using Zofran as needed for nausea/vomiting, and taking medication as prescribed by her tree cutter for your episodes of diarrhea. CT scan does not show evidence of diverticulitis, no evidence of kidney stones or other concerning findings. Consume small frequent meals, and be sure that you are drinking plenty of water throughout the day. Prescriptions: No Action IBgard 90 mg capsule,delayed,extend.release 90 mg PO TID 30 Days Qty: 90 2RF sucralfate [Carafate] 100 mg/mL suspension 10 ml PO BID Qty: 1000 1RF loperamide 2 mg Capsule 2 mg PO Q6H PRN (Reason: Diarrhea) Qty: 20 0RF lisinopril 20 mg tablet 20 mg PO DAILY zolpidem 12.5 mg tablet,ext release multiphase 12.5 mg PO BEDTIME PRN (Reason: Insomnia) sumatriptan succinate 100 mg tablet 100 mg PO DAILY PRN (Reason: migraine) nortriptyline 50 mg capsule 100 mg PO BEDTIME Emgality Pen 120 mg/mL pen injector 120 mg subcut Q4W metoprolol tartrate 25 mg tablet 25 mg PO BID cholecalciferol (vitamin D3) 25 mcg (1,000 unit) tablet 25 mcg PO DAILY ondansetron 4 mg tablet,disintegrating 4 mg PO TID PRN (Reason: nausea and vomiting) 5 Days Qty: 30 3RF hyoscyamine sulfate [Levsin/SL] 0.125 mg tablet, sublingual 0.125 mg sublingual BID-QID PRN (Reason: dyspepsia) Qty: 30 0RF ondansetron 4 mg tablet,disintegrating 4 mg PO Q8H PRN (Reason: nausea and vomiting) Qty: 30 0RF peg-electrolyte soln 420 gram recon soln 240 ml PO Q10M Qty: 4000 0RF Rx Instructions: until fecal effluent is clear; do not exceed a total volume of 2,000 mL buspirone 15 mg tablet 15 mg PO BID hydrocortisone [Proctozone-HC] 2.5 % cream with perineal applicator 1 appl IA BID-QID PRN (Reason: hemorrhoids) Qty: 30 0RF riboflavin (vitamin B2) [Vitamin B-2] 100 mg tablet 400 mg PO DAILY aripiprazole 15 mg tablet 15 mg PO QAM diphenoxylate-atropine [Lomotil] 2.5-0.025 mg tablet 1 tab PO BID PRN (Reason: diarrhea) Qty: 60 0RF esomeprazole magnesium 20 mg capsule,delayed release(DR/EC) 20 mg PO DAILY Qty: 30 3RF Referrals: Vidhya Padilla NP [Primary Care Provider] - Interventions: ED Discharge Assessment Last Done: 11/07/23 23:10 Discharge Date/Time: 11/07/23 23:14 Print Language: Mongolian
[2023-11-07 16:00] VITALS: BP 110/71; PULSE 67; RESP 20; TEMP 36.6; O2SAT 98; BMI 27.6
[2023-11-07 16:19] LABS: MANUAL DIFF FLAG NO
[2023-11-07 16:22] LABS: Basophils Percent Auto 0.6 % (0-2); Eosinophils Absolute Auto 0.1 X10*3/uL (0.0-0.4); Eosinophils Percent Auto 1.8 % (0-4); Hematocrit 36.7 % (37.0-47.0); Hemoglobin 11.7 g/dl (12.0-16.0); Imm Gran Abs Auto 0.01 X10*3/uL (0.00-0.03); Imm Gran Pct Auto 0.2 % (0.0-0.4); Lymphocytes Absolute Auto 2.9 X10*3/uL (1.2-4.9); Lymphocytes Percent Auto 47.3 % (20-40); Mean Corpuscular HGB Conc 31.9 g/dl (31.0-35.0); Mean Corpuscular Hemoglobin 27.3 pg (27.0-33.0); Mean Corpuscular Volume 85.5 fL (80.0-98.0); Mean Platelet Volume 8.9 fL (9.4-12.3); Monocytes Absolute Auto 0.5 X10*3/uL (0.1-1.2); Neutrophils Absolute Auto 2.6 x10*3/uL (2.0-8.3); Neutrophils Percent Auto 42.1 % (45-73); Platelet Count 313 X10*3/uL (160-400); Red Blood Count 4.29 X10*6/uL (4.20-5.50); Red Cell Distribution Width 14.5 % (11.0-16.0); White Blood Count 6.2 X10*3/uL (4.8-10.8)
[2023-11-07 16:29] LABS: Prothrombin Time 11.1 SEC (10.9-12.4)
[2023-11-07 16:39] LABS: Alanine Aminotransferase 15 U/L (0-31); Alkaline Phosphatase 55 U/L (39-117); Anion Gap 10 (12-20); Aspartate Amino Transferase 16 U/L (5-31); Bilirubin Total 0.3 mg/dL (0.0-1.0); Blood Urea Nitrogen 10 mg/dL (9-16); Calcium 9.4 mg/dL (8.4-10.2); Carbon Dioxide 29 mmol/L (22-29); Chloride 106 mmol/L (96-108); Creatinine Clr Calc Pharmacy 73.2; Estimated Glomerular Filt Rate > 60; Glucose Random 103 mg/dL (60-115); Magnesium 2.1 mg/dL (1.6-2.6); Potassium 4.4 mmol/L (3.3-5.1); Sodium 141 mmol/L (135-145)
[2023-11-07 18:00] VITALS: BP 119/58; PULSE 64; RESP 15; TEMP 36.4; O2SAT 100
[2023-11-07 19:03] LABS: C Reactive Protein 0.13 mg/dL (< or = 0.50)
--- NOTE | 2023-11-07 19:13 | PC.NURSE ---
This RN assumed pt care @ 1900 Pt a&ox4, no signs of distress Pt sitting in bed, talking on cell phone Plan of care ongoing
[2023-11-07] MEDS: 0.9 % Sodium Chloride 1,000 ML 999 ML IV (19:19)
[2023-11-07] MEDS: HYDROmorphone HCl 0.5 MG/0.5 ML SYRINGE IVPUSH (19:20)
[2023-11-07] MEDS: iohexoL 350 MG/ML 100 ML INFUS..BTL IV (19:28)
[2023-11-07 21:16] VITALS: BP 120/57; PULSE 71; RESP 15; TEMP 36.8; O2SAT 97
[2023-11-07 23:10] VITALS: BP 118/62; PULSE 60; RESP 16; TEMP 36.6; O2SAT 98
== END 2023-11-07 23:14 | disposition home or self-care (01) ==
PROVIDERS: Nurse Practitioner Family; Registered Nurse Emergency; Emergency Provider Internal Medicine; PCP Nurse Practitioner Family
DX: K52.9 Noninfective gastroenteritis and colitis, unspecified (principal); R10.32 Left lower quadrant pain; K62.5 Hemorrhage of anus and rectum; Z79.899 Other long term (current) drug therapy
CPT/HCPCS: 36415; 74177; 80053; 83735; 85025; 85610; 86140; 99212; 99284; J1171; Q9967

== ENCOUNTER 2023-11-14 07:55 | Day surgery (SDC) | payer MEDICAID, SELFPAY ==
--- NOTE | 2023-11-13 09:30 | HO.ANESPROP2 ---
Documented by User: Nica Vaca NP 11/13/23 09:30 HPI - Anesthesia Eval Consult details Narrative: 58yo F for ?Upper Endoscopy and Colonoscopy PMFSH Active Problems Active Problems: All Active Problems Bleeding hemorrhoids (Acute) Hemorrhoids (Acute) Microscopic hematuria (Acute) Encounter for well woman exam with routine gynecological exam (Acute) Incontinence in female (Acute) Chronic abdominal pain (Acute) Diverticular disease of colon (Acute) Irritable bowel syndrome with diarrhea (Acute) Clostridioides difficile diarrhea (Acute) Tubular adenoma of colon (Acute) Left lower quadrant pain (Acute) Diarrhea (Acute) Renal cyst (Acute) Acute diverticulitis (Acute) Encounter to discuss test results (Acute) Abdominal mass (Acute) Pelvic pain in female (Acute) Encounter for annual routine gynecological examination (Acute) Abdominal cramping (Acute) Epigastric pain (Acute) Past Medical History Medical History Bleeding hemorrhoids Chronic abdominal pain Diverticular disease of colon Irritable bowel syndrome with diarrhea LLQ cramping Colitis Lower abdominal pain GERD (gastroesophageal reflux disease) Left lower quadrant pain Tubular adenoma of colon Sigmoid diverticulitis Acute diverticulitis Diarrhea Diverticulitis Abdominal pain GERD (gastroesophageal reflux disease) Chronic idiopathic constipation Constipation Family History Family History Father Cancer HTN (hypertension) Mother HTN (hypertension) Hyperthyroidism Migraine headache Maternal Grandmother History of breast cancer Paternal Grandmother History of breast cancer Family/Other Colon cancer Paternal Aunt Ovarian cancer Family history of problems with anesthesia: No Surgical History Surgical History History of intestinal surgery History of partial hysterectomy (~09/2006) Hx of hemorrhoidectomy Hx of colonoscopy History of esophagogastroduodenoscopy (EGD) History of Problems with Anesthesia: No Social History Social History Household Members: Family and None Housing: Apartment Are you a primary customer care professional to a significant other at home: No Do you presently have visiting nurse or other home services: No Alcohol intake: never Patient Tobacco Use Status: Never used Tobacco Use of substances other than those prescribed or required for medical reasons: No Have you been hit, kicked, punched, or otherwise hurt by someone within the past year? If so, by whom?: No Are you DNR?: No Advance Directives: No Advance Directives Information Provided: Yes Recently lost weight without trying: No service: No Current occupational status: disabled Current occupational exposures/hazards: No Meds Allergies Allergy/AdvReac Type Severity Reaction Status Date / Time Penicillins [PENICILLINS] Allergy Intermediate HIVES/SWELL Verified 11/07/23 16:02 ING bupropion [From Wellbutrin] Allergy hives, Verified 11/07/23 16:02 swelling Home Medications ?Medication ?Instructions ?Recorded ?Confirmed ?Last Taken ?Type galcanezumab-gnlm 120 mg/mL 120 mg subcut Q4W 11/25/21 11/07/23 12/21/21 History subcutaneous pen injector (Emgality Pen) lisinopril 20 mg tablet 20 mg PO DAILY 11/25/21 11/07/23 12/09/22 History metoprolol tartrate 25 mg tablet 25 mg PO BID 11/25/21 11/07/23 05/17/23 History nortriptyline 50 mg capsule 100 mg PO BEDTIME 11/25/21 11/07/23 01/10/22 History sumatriptan succinate 100 mg tablet 100 mg PO DAILY PRN migraine 11/25/21 11/07/23 01/11/22 History zolpidem 12.5 mg tablet,extended 12.5 mg PO BEDTIME PRN Insomnia 11/25/21 11/07/23 Unknown History release,multiphase buspirone 15 mg tablet 15 mg PO BID 07/14/22 11/07/23 12/09/22 History cholecalciferol (vitamin D3) 25 25 mcg PO DAILY 09/20/22 11/07/23 12/09/22 History mcg (1,000 unit) tablet aripiprazole 15 mg tablet 15 mg PO QAM 10/26/23 11/07/23 Unknown History riboflavin (vitamin B2) 100 mg 400 mg PO DAILY 10/26/23 11/07/23 Unknown History tablet (Vitamin B-2) Assessment and Plan Assessment Anesthesia Assessment: Chart Reviewed Final Anesthetic Review Family History of Problems with Anesthesia: No History of Problems with Anesthesia: No Documented by User: Anthony Palma MD 11/14/23 09:21 [facility] Past Medical History Medical History Bleeding hemorrhoids Chronic abdominal pain Diverticular disease of colon Irritable bowel syndrome with diarrhea LLQ cramping Colitis Lower abdominal pain GERD (gastroesophageal reflux disease) Left lower quadrant pain Tubular adenoma of colon Sigmoid diverticulitis Acute diverticulitis Diarrhea Diverticulitis Abdominal pain GERD (gastroesophageal reflux disease) Chronic idiopathic constipation Constipation Family History Family History Father Cancer HTN (hypertension) Mother HTN (hypertension) Hyperthyroidism Migraine headache Maternal Grandmother History of breast cancer Paternal Grandmother History of breast cancer Family/Other Colon cancer Paternal Aunt Ovarian cancer Surgical History Surgical History History of intestinal surgery History of partial hysterectomy (~09/2006) Hx of hemorrhoidectomy Hx of colonoscopy History of esophagogastroduodenoscopy (EGD) Social History Social History Household Members: Family and None Housing: Apartment Are you a primary customer care professional to a significant other at home: No Do you presently have visiting nurse or other home services: No Alcohol intake: never Patient Tobacco Use Status: Never used Tobacco Use of substances other than those prescribed or required for medical reasons: No Have you been hit, kicked, punched, or otherwise hurt by someone within the past year? If so, by whom?: No Are you DNR?: No Advance Directives: No Advance Directives Information Provided: Yes Recently lost weight without trying: No service: No Current occupational status: disabled Current occupational exposures/hazards: No Meds Allergies Allergy/AdvReac Type Severity Reaction Status Date / Time Penicillins [PENICILLINS] Allergy Intermediate HIVES/SWELL Verified 11/07/23 16:02 ING bupropion [From Wellbutrin] Allergy hives, Verified 11/07/23 16:02 swelling Home Medications ?Medication ?Instructions ?Recorded ?Confirmed ?Last Taken ?Type galcanezumab-gnlm 120 mg/mL 120 mg subcut Q4W 11/25/21 11/07/23 12/21/21 History subcutaneous pen injector (Emgality Pen) lisinopril 20 mg tablet 20 mg PO DAILY 11/25/21 11/07/23 12/09/22 History metoprolol tartrate 25 mg tablet 25 mg PO BID 11/25/21 11/07/23 05/17/23 History nortriptyline 50 mg capsule 100 mg PO BEDTIME 11/25/21 11/07/23 01/10/22 History sumatriptan succinate 100 mg tablet 100 mg PO DAILY PRN migraine 11/25/21 11/07/23 01/11/22 History zolpidem 12.5 mg tablet,extended 12.5 mg PO BEDTIME PRN Insomnia 11/25/21 11/07/23 Unknown History release,multiphase buspirone 15 mg tablet 15 mg PO BID 07/14/22 11/07/23 12/09/22 History cholecalciferol (vitamin D3) 25 25 mcg PO DAILY 09/20/22 11/07/23 12/09/22 History mcg (1,000 unit) tablet aripiprazole 15 mg tablet 15 mg PO QAM 10/26/23 11/07/23 Unknown History riboflavin (vitamin B2) 100 mg 400 mg PO DAILY 10/26/23 11/07/23 Unknown History tablet (Vitamin B-2) Exam Airway Mallampati Class: I TM Dist: <=3cm Neck ROM: Full Loose/Missing/Broken Teeth: Yes and Upper Heart: ok Lungs: ok Assessment and Plan Assessment Anesthesia Assessment: Anesthesia Plan Discussed Final Anesthetic Review NPO: Yes ASA Class: II Final Preanesthetic Review: No Changes in Pt Med Stat, Meds/Allgs Chart Reviewed, Consent Obtained/Reviewed and Anes Risks/Benef Reviewed Patient Risk: Low Procedure Risk: Intermediate Anesthetic Plan Anesthetic Plan: Agree w/ Assess. and Plan and TIVA Disposition: Standard PACU
[2023-11-14 08:38] VITALS: BP 125/46; PULSE 60; RESP 16; TEMP 36.7; O2SAT 96; BMI 27.5
[2023-11-14] MEDS: Lactated Ringers 1,000 ML 100 ML IVCONT (08:55)
--- NOTE | 2023-11-14 09:43 | MHC.SHP ---
Pre-Procedural Eval Section A - 24 Hr Update-Section A only Date of Service: 11/14/23 Section B - Complete if H&P > 30 days Chief Complaint: Unspecified abdominal pain Details of Present Illness: abn imaging with possible colon stricture and enteritis Relevant Family History (Specify if Yes): No Relevant Social History: None Present Medications: see Short Stay Collaborative assessment Medical History: Significant History (Bleeding hemorrhoids Chronic abdominal pain Diverticular disease of colon Irritable bowel syndrome with diarrhea LLQ cramping Colitis Lower abdominal pain GERD (gastroesophageal reflux disease) Left lower quadrant pain Tubular adenoma of colon Sigmoid diverticulitis Acute diverticulitis Diarrhea Div) History of Previous Operations: Relevant previous surgery/procedure and date(s) (History of intestinal surgery History of partial hysterectomy (~09/2006) Hx of hemorrhoidectomy Hx of colonoscopy History of esophagogastroduodenoscopy (EGD)) Allergies: Allergies Allergy/AdvReac Type Severity Reaction Status Date / Time Penicillins [PENICILLINS] Allergy Intermediate HIVES/SWELL Verified 11/07/23 16:02 ING bupropion [From Wellbutrin] Allergy hives, Verified 11/07/23 16:02 swelling Review of Systems Sugical H&P ROS: Negative: Constitution, Cardiovascular, Respiratory, Neurological, Psychiatric, Hem-Onc, Allergic/Immunologic, Gastrointestinal, Genitourinary, Musculoskeletal, Integumentary, Endocrine and Eyes/Ears/Nose/Throat Exam Surgical H&P Exam: Normal: HEENT, Normal: Heart, Normal: Lungs, Normal: Extremities, Normal: Abdomen, Normal: Skin and Normal: Neurological Plan Diagnosis/Plan: Unchanged I have reviewed the history and physical and performed a pertinent physical examination on my patient. No changes have occurred unless specified. EGD and colo for ix of abdo symptoms Time Spent With Patient Time: Total time managing care of this patient today ____ minutes.
--- NOTE | 2023-11-14 10:34 | HO.OPN-COLON ---
Colonoscopy Operative Note Operative Note Date of Service: 11/14/23 Narrative: Operative Information Procedure Description: EGD, Colonoscopy Indication: abdo pain, abn imagin Anesthesia: MAC FLEXIBLE TRANSORAL UPPER GASTROINTESTINAL ENDOSCOPY AND COLONOSCOPY PROCEDURE NOTE UPPER ENDOSCOPY Consent: Indications for the procedure and potential complications of bleeding, perforation, reaction to medications and missed diagnosis were discussed with the patient and informed consent was obtained. Instrument: Olympus variable stiffness pediatric scope 190L Monitoring: Vital signs and clinical assessment, continuous EKG monitoring, Pulse oximetry, Carbon Dioxide monitoring and blood pressure monitoring were done throughout the procedure. Procedure: The patient was placed in the left lateral decubitis position and pre-procedure medications were administered and a bite block was placed. The endoscope was inserted into the mouth and advanced under direct vision to the third part of duodenum. A careful inspection was made as the upper endoscope was withdrawn including a retroflexed examination of the proximal stomach; Findings and interventions are described below. Findings: Larynx:normal Esophagus: GE junction at 33 cm, diaphragm hiatus at 35 cm, bogginess and erythema, GEJ, bx taken from here and distal esophagus--schatzki ring and small hiatal hernia noted Stomach: Mild erythema. Biopsies were obtained. Grade 2 flap valve on retroflexed examination of the cardia. Duodenum: Patchy erythema, bx taken jejunum: normal, bx taken Intervention: Biopsies as noted above, COLONOSCOPY Instrument: Olympus variable stiffness pediatric scope 190L Colonoscopy Monitoring: Vital signs and clinical assessment, continuous EKG monitoring, Pulse oximetry, Carbon Dioxide monitoring and blood pressure monitoring were done throughout the procedure. Colon withdrawal time was 13 minutes. Procedure: The patient was placed in the left lateral decubitis position and pre-procedure medications were administered. After a digital rectal examination of the ano-rectum, the video colonoscope was inserted into the rectum and advanced through the colon to the cecum/TI. The colonoscope was slowly withdrawn in a retrograde panoramic fashion and the colon mucosa was carefully examined including a retroflexed view of the rectum. Findings and interventions are described below. Procedure Difficulty:moderate Findings: Terminal Ileum-normal, bx taken Cecum:normal Ascending Colon: normal Transverse Colon -normal Descending Colon:normal Sigmoid Colon: patchy erythema in distal sigmoids and swelling at rectosigmoid, bx taken, diverticulosis noted Rectum: Retroflexion with small internal hemorrhoids, grade I, mild patchy erythema Anorectum - normal Colon preparation: [place] Bowel Preparation Scale Right colon; 2 Transverse colon: 2 Left colon; 2 (0 = Unprepared colon segment with mucosa not seen due to solid stool that cannot be cleared. 1 = Portion of mucosa of the colon segment seen, but other areas of the colon segment not well seen due to staining, residual stool and/or opaque liquid. 2 = Minor amount of residual staining, small fragments of stool and/or opaque liquid, but mucosa of colon segment seen well. 3 = Entire mucosa of colon segment seen well with no residual staining, small fragments of stool or opaque liquid) Impression and Post Procedure Diagnosis: Endoscopy Findings: small hiatal hernia esophagitis gastritis Colonoscopy Findings: diverticulosis non specific colitis, ?SCAD internal hemorrhoids Plan: Await Pathology results Repeat Colonoscopy in 5 years due to prior polyps or earlier if clinically indicated High fiber diet leaflet avoid straining at stool, epsom salts and sitz bath, anusol supps or cream dependig on bx, maybe steroids or ABx vs biologics Above findings were reviewed with the patient and relevant handouts were provided if indicated.
[2023-11-14 10:36] VITALS: BP 95/56; PULSE 65; RESP 16; TEMP 36.2; O2SAT 97
[2023-11-14 10:51] VITALS: BP 106/67; PULSE 56; RESP 16; O2SAT 100
[2023-11-14 11:06] VITALS: BP 120/71; PULSE 58; RESP 16; TEMP 36.2; O2SAT 100
[2023-11-14 12:33] LABS: CDiff Gene PCR POSITIVE (Negative)
[2023-11-14 13:21] LABS: CDIFF Internal ctrl Dots and bkg OK (V); CDiff Toxin Negative (Negative)
[2023-11-14 14:40] LABS: Adenovirus F 40/41 Not Detected (Not Detect.); Astrovirus Not Detected (Not Detect.); Campylobacter Not Detected (Not Detect.); Cryptosporidium Not Detected (Not Detect.); Cyclospora cayetanensis Not Detected (Not Detect.); E. coli EAEC Not Detected (Not Detect.); E. coli EPEC Not Detected (Not Detect.); E. coli ETEC Not Detected (Not Detect.); E. coli STEC Not Detected (Not Detect.); Entamoeba histolytica Not Detected (Not Detect.); Giardia lamblia Not Detected (Not Detect.); Norovirus GI/GII Not Detected (Not Detect.); Plesiomonas shigelloides Not Detected (Not Detect.); Rotavirus A Not Detected (Not Detect.); Salmonella Not Detected (Not Detect.); Sapovirus Not Detected (Not Detect.); Shigella sp./EIEC Not Detected (Not Detect.); Vibrio Not Detected (Not Detect.); Vibrio Cholerae Not Detected (Not Detect.); Yersinia enterocolitica Not Detected (Not Detect.)
[2023-11-21 21:59] LABS: Lactoferrin, Fecal, Quant. <6.25 mcg/mL (<7.25)
== END 2023-11-14 11:42 | disposition home or self-care (01) ==
PROVIDERS: PCP Nurse Practitioner Family; Visit Provider Internal Medicine Gastroenterology
PROC: (CPT 45380; principal; 2023-11-14 10:00)
DX: R93.3 Abnormal findings on diagnostic imaging of other parts of digestive tract (principal); R10.32 Left lower quadrant pain; G89.29 Other chronic pain; Z86.0101 Personal history of adenomatous and serrated colon polyps; K52.9 Noninfective gastroenteritis and colitis, unspecified; A04.72 Enterocolitis due to Clostridium difficile, not specified as recurrent; K57.30 Diverticulosis of large intestine without perforation or abscess without bleeding; K64.0 First degree hemorrhoids; K59.04 Chronic idiopathic constipation; K29.50 Unspecified chronic gastritis without bleeding; R10.9 Unspecified abdominal pain; K20.80 Other esophagitis without bleeding; K29.80 Duodenitis without bleeding; K22.2 Esophageal obstruction; K44.9 Diaphragmatic hernia without obstruction or gangrene; Z88.0 Allergy status to penicillin; Z88.8 Allergy status to other drugs, medicaments and biological substances; Z98.890 Other specified postprocedural states
CPT/HCPCS: 45380; 43239; 83631; 87324; 87493; 87507; 88305; 88307; 88313; 88341; 88342; J1100; J1596; J2003; J2371; J2704

== ENCOUNTER → 2023-11-14 07:55 | Outpatient (BNV) | payer MEDICAID, SELFPAY | PROVIDERS: PCP Nurse Practitioner Family; Visit Provider Internal Medicine Gastroenterology | DX: R10.9 Unspecified abdominal pain (principal); R93.3 Abnormal findings on diagnostic imaging of other parts of digestive tract; K22.2 Esophageal obstruction; K57.30 Diverticulosis of large intestine without perforation or abscess without bleeding; K64.0 First degree hemorrhoids | CPT/HCPCS: 43239; 45380 ==

== ENCOUNTER 2023-12-03 15:00 | Outpatient (AMB) | payer MEDICAID, SELFPAY ==
--- NOTE | 2023-12-03 15:08 | A.OFFVIS_ITS ---
Vital Signs 12/03/23 15:37 Height 5 ft 4 in Weight 150 lb BMI 25.7 Pulse 72 Pulse Source Pulse Oximeter Temp 98.8 F Temp Source Oral Pulse Oximetry (%) 99 Oxygen Delivery Method Room Air Intake Visit Reasons: Sheehan reff c diff Corporate Executive Chef Required: Yes Corporate Executive Chef Services: Corporate Executive Chef Present Corporate Executive Chef Name: Thi Beck CMA Information Interpreted: clinical only Cnc Cutting Operator: Cnc Cutting Operator Present Allergies Penicillins [PENICILLINS] Allergy (Intermediate, Verified 12/03/23 15:38) HIVES/SWELLING bupropion [From Wellbutrin] Allergy (Verified 12/03/23 15:38) hives, swelling HPI HPI Sheehan reff c diff: Details: She has positive Cdiff PCR and negative toxin. She reports diarrhea for last three years. She has had Vancomycin 06/21 125 qid for 10 days. She has Cdiff positive 05/2023 and now as well. She has had been on Rifaximin She has no CHF history. [facility] Medical History Clostridioides difficile diarrhea Bleeding hemorrhoids Chronic abdominal pain Diverticular disease of colon Irritable bowel syndrome with diarrhea LLQ cramping Colitis Lower abdominal pain GERD (gastroesophageal reflux disease) Left lower quadrant pain Tubular adenoma of colon Sigmoid diverticulitis Acute diverticulitis Diarrhea Diverticulitis Abdominal pain GERD (gastroesophageal reflux disease) Chronic idiopathic constipation Constipation Surgical History History of intestinal surgery History of partial hysterectomy (~09/2006) Hx of hemorrhoidectomy Hx of colonoscopy History of esophagogastroduodenoscopy (EGD) Family History Father Cancer HTN (hypertension) Mother HTN (hypertension) Hyperthyroidism Migraine headache Maternal Grandmother History of breast cancer Paternal Grandmother History of breast cancer Family/Other Colon cancer Paternal Aunt Ovarian cancer Social History Household Members: Family and None Housing: Apartment Are you a primary care specialist to a significant other at home: No Do you presently have visiting nurse or other home services: No Alcohol intake: never Patient Tobacco Use Status: Never used Tobacco service: No Current occupational status: disabled Current occupational exposures/hazards: No Female Reproductive History Menstrual Age of Menarche: 7 Review of Systems Const All systems reviewed & are unremarkable except as noted in HPI and below Physical Exam Vital Signs: Last Vital Signs Temp 98.8 F 12/03/23 15:37 Pulse 72 12/03/23 15:37 Pulse Ox 99 12/03/23 15:37 Oxygen Delivery Method Room Air 12/03/23 15:37 BMI result Body Mass Index 25.7 Const General: cooperative Orientation/consciousness: patient oriented x3 HEENT Head: Yes normal to inspection Mouth: Normal oral and palatal mucosa present Eyes General: appearance normal, both eyes and all related structures Pupils: Equal, round and reactive pupils present Resp Effort & Inspection: normal respiratory effort Cardio Rate: regular rate Rhythm: regular rhythm GI Palpation (GI): Soft to palpation and nontender General: Yes no CVA tenderness Back/Spine/Pelvis Back: no CVA tenderness Skin General skin exam: no rashes or lesions noted Neuro General: patient oriented x3 Cranial nerves: Yes CN's II-XII intact bilaterally and Yes Equal, round and reactive pupils present Extrem General: Yes normal to inspection Psych Appearance: grossly normal Assessment & Plan Assessment & Plan (1) C. difficile enteritis: Comment: no other acute infections seen Code(s): A04.72 - Enterocolitis due to Clostridium difficile, not specified as recurrent Category: Medical Plan: Zinplava and if not working po Vancomycin indefinitely through taper. Think she may have real infection Orders: Referrals Infusion Center Notification A04.72 - Enterocolitis due to Clostridium difficile, not specified as recurrent Medications: New bezlotoxumab (Zinplava) 700 mg (28 mL) IV ONCE 28 mL 0RF 1 day bezlotoxumab (Zinplava) 700 mg (28 mL) IV ONCE 1 day 28 mL 0RF Coding Level of Care Code New Pt Level 3 (85089) Diagnoses C. difficile enteritis A04.72
[2023-12-03 15:37] VITALS: PULSE 72; TEMP 37.1; O2SAT 99; BMI 25.7
== END 2023-12-03 16:06 | disposition home or self-care (01) ==
LOC: HO.HID 15:01
PROVIDERS: PCP Nurse Practitioner Family; Visit Provider Internal Medicine
DX: A04.72 Enterocolitis due to Clostridium difficile, not specified as recurrent (principal)
CPT/HCPCS: 99213

== ENCOUNTER → 2023-12-03 15:00 | Outpatient (BNVA) | payer MEDICAID, SELFPAY | PROVIDERS: PCP Nurse Practitioner Family; Visit Provider Internal Medicine | DX: A04.72 Enterocolitis due to Clostridium difficile, not specified as recurrent (principal) | CPT/HCPCS: 99212 ==

== ENCOUNTER 2023-12-17 07:39 | Outpatient (RCR) | payer MEDICAID, SELFPAY ==
[2023-12-17 07:43] VITALS: BP 113/67; PULSE 69; RESP 16; TEMP 36.4; O2SAT 98
[2023-12-17] MEDS: SODIUM CHLORIDE 0.9% IV (08:40)
[2023-12-17] MEDS: BEZLOTOXUMAB IV (08:40)
== END 2023-12-17 09:48 | disposition home or self-care (01) ==
LOC: HO.INF 07:39
PROVIDERS: Visit Provider Internal Medicine
DX: A04.72 Enterocolitis due to Clostridium difficile, not specified as recurrent (principal)
CPT/HCPCS: 96365; J0565

== ENCOUNTER 2024-01-01 08:14 | Outpatient (AMB) | payer MEDICAID, SELFPAY ==
[2024-01-01 08:20] VITALS: BP 119/53; PULSE 70; BMI 27.6
--- NOTE | 2024-01-01 08:20 | MHC.OFFVIS ---
Vital Signs 01/01/24 08:20 Height 5 ft 4 in Weight 160 lb 14.999 oz BMI 27.6 BP 119/53 L Blood Pressure Location Lt brachial Position Sitting Pulse 70 Intake Visit Reasons: 2 mo f/u Intake Note: Kacy presents in the office as a 2 month follow up. CC: She states she is not taking medications for her stomach - she has pains in her stomach, constipation, diarrhea, nausea and vomiting. she states that nothing has changed everything is still the same. Banjo Repair Person Required: Yes Banjo Repair Person Name: [id number] Tegan Allergies Penicillins [PENICILLINS] Allergy (Intermediate, Verified 01/01/24 08:20) HIVES/SWELLING bupropion [From Wellbutrin] Allergy (Verified 01/01/24 08:20) hives, swelling HPI HPI 2 mo f/u: Details: 58yr old f here for f/u for pos c diff gene PCR and diarrhea RECAP: She tried the vanc for 10d but never got the rifaximin for 20d --? not covered by insurance feels it made no change she still has diarrhea she tried levsin didnt help her sx she still doesnt want to try fecal transplant she takes probiotic she felt hemorrhoids were acting up-was sent to dr romulo hurley she is taking fiber Endoscopies: colonoscopy-- 05/2022--- normal random bx, tubular adenomas removed TEST: CT A/P:12/28-- diverticulosis, (prior scan with possible descending colitis) US abdo 12/2022--- nml mesenteric duplex-- 02/28/23--nml Labs: Hgb 11, stool pcr c diff pos several times REPT EGD/[facility] Findings: esophagitis gastritis schatzki ring Colonoscopy Findings: diverticulosis colon polyps internal hemorrhoids path--TA removed, Stool testing: still pos for c diff gene but neg toxin, neg fecal lactoferrin Repet EGD/colo doen due to abn CT with possible sigmoid mass 11/28 Endoscopy Findings: small hiatal hernia esophagitis gastritis Colonoscopy Findings: diverticulosis non specific colitis, ?SCAD internal hemorrhoids INTERIM: ongoing issues as before with diarrhea and bleeding hemorrhoids crampy abdominal pain she has tried and failed mesalamine PO and enemas, budesonide, multiple courses of ABx, lomotil bx with focal colitis, enteritis Saw ID and had zinplava, but felt no better we had a long chat about trying fecal transplant, reviewed potential benefits given her sx also discussed referral for hemorrhoidal coagulation, but she wants to hold on this EXAM: GENERAL: The patient is well developed and nontoxic. VITAL SIGNS:see workflow HEENT: Nonicteric sclerae, PERRLA, EOMI. Oropharynx clear. Moist mucous membranes. Conjunctivae appear well perfused. No thyroid mass. CHEST: Chest wall is nontender. HEART: Regular rate and rhythm without murmurs. LUNGS: Clear to auscultation bilaterally. ABDOMEN: Soft, positive bowel sounds, tender mid abdomen, no organomegaly.no flank tenderness SKIN: No rash, no excessive bruising, petechiae, or purpura. NEUROLOGIC: Cranial nerves II-XII intact without motor/sensory deficit. A/P: 1/ Colitis and enteritis, possible ongoing c diff infection, unclear if active, not responding to multiple meds seeing ID, fecal transplant maybe best option Plan: 1/ she is more receptive of fecal transplant will d/w Dr Cueva DDX: blanquita but would wait to see how she does with c diff treatments [facility] Medical History Clostridioides difficile diarrhea Bleeding hemorrhoids Chronic abdominal pain Diverticular disease of colon Irritable bowel syndrome with diarrhea LLQ cramping Colitis Lower abdominal pain GERD (gastroesophageal reflux disease) Left lower quadrant pain Tubular adenoma of colon Sigmoid diverticulitis Acute diverticulitis Diarrhea Diverticulitis Abdominal pain GERD (gastroesophageal reflux disease) Chronic idiopathic constipation Constipation Surgical History History of intestinal surgery History of partial hysterectomy (~09/2006) Hx of hemorrhoidectomy Hx of colonoscopy History of esophagogastroduodenoscopy (EGD) Family History Father Cancer HTN (hypertension) Mother HTN (hypertension) Hyperthyroidism Migraine headache Maternal Grandmother History of breast cancer Paternal Grandmother History of breast cancer Family/Other Colon cancer Paternal Aunt Ovarian cancer Social History Household Members: Family and None Housing: Apartment Are you a primary rn long term care to a significant other at home: No Do you presently have visiting nurse or other home services: No Alcohol intake: never Patient Tobacco Use Status: Never used Tobacco service: No Current occupational status: disabled Current occupational exposures/hazards: No Female Reproductive History Menstrual Age of Menarche: 7 Physical Exam Vital Signs: Last Vital Signs Pulse 70 01/01/24 08:20 BP 119/53 L 01/01/24 08:20 BMI result Body Mass Index 27.6 Assessment & Plan Assessment & Plan (1) C. difficile enteritis: Comment: no other acute infections seen Code(s): A04.72 - Enterocolitis due to Clostridium difficile, not specified as recurrent Category: Medical Plan: see above Coding Level of Care Code Est Pt Level 3 (39290) Diagnoses C. difficile enteritis A04.72
== END 2024-01-01 09:06 | disposition home or self-care (01) ==
PROVIDERS: PCP Nurse Practitioner Family; Visit Provider Internal Medicine Gastroenterology
DX: A04.72 Enterocolitis due to Clostridium difficile, not specified as recurrent (principal)
CPT/HCPCS: 99213

== ENCOUNTER → 2024-01-01 08:14 | Outpatient (BNVA) | payer MEDICAID, SELFPAY | PROVIDERS: PCP Nurse Practitioner Family; Visit Provider Internal Medicine Gastroenterology | DX: A04.72 Enterocolitis due to Clostridium difficile, not specified as recurrent (principal); K59.00 Constipation, unspecified | CPT/HCPCS: 99212 ==

== ENCOUNTER 2024-01-07 14:08 | Outpatient (AMB) | payer MEDICAID, SELFPAY ==
--- NOTE | 2024-01-07 13:36 | MHC.OFFVIS ---
Vital Signs 01/07/24 13:40 Height 5 ft 4 in Weight 165 lb BMI 28.3 Pulse 77 Pulse Source Pulse Oximeter Pulse Oximetry (%) 99 Oxygen Delivery Method Room Air Intake Visit Reasons: zimplava follow up c diff Metal Fabricating Inspector Services: Metal Fabricating Inspector Present Metal Fabricating Inspector Name: Thi Galarza Information Interpreted: clinical only Allergies Penicillins [PENICILLINS] Allergy (Intermediate, Verified 01/07/24 13:39) HIVES/SWELLING bupropion [From Wellbutrin] Allergy (Verified 01/07/24 13:39) hives, swelling HPI HPI zimplava follow up c diff: Details: She did receive Zinplava. She still has some diarrhea. [facility] Medical History Clostridioides difficile diarrhea Bleeding hemorrhoids Chronic abdominal pain Diverticular disease of colon Irritable bowel syndrome with diarrhea LLQ cramping Colitis Lower abdominal pain GERD (gastroesophageal reflux disease) Left lower quadrant pain Tubular adenoma of colon Sigmoid diverticulitis Acute diverticulitis Diarrhea Diverticulitis Abdominal pain GERD (gastroesophageal reflux disease) Chronic idiopathic constipation Constipation Surgical History History of intestinal surgery History of partial hysterectomy (~09/2006) Hx of hemorrhoidectomy Hx of colonoscopy History of esophagogastroduodenoscopy (EGD) Family History Father Cancer HTN (hypertension) Mother HTN (hypertension) Hyperthyroidism Migraine headache Maternal Grandmother History of breast cancer Paternal Grandmother History of breast cancer Family/Other Colon cancer Paternal Aunt Ovarian cancer Social History Household Members: Family and None Housing: Apartment Are you a primary health care consultant to a significant other at home: No Do you presently have visiting nurse or other home services: No Alcohol intake: never Patient Tobacco Use Status: Never used Tobacco service: No Current occupational status: disabled Current occupational exposures/hazards: No Female Reproductive History Menstrual Age of Menarche: 7 Review of Systems Const All systems reviewed & are unremarkable except as noted in HPI and below Physical Exam Vital Signs: Last Vital Signs Pulse 77 01/07/24 13:40 Pulse Ox 99 01/07/24 13:40 Oxygen Delivery Method Room Air 01/07/24 13:40 BMI result Body Mass Index 28.3 Const General: cooperative HEENT Head: Yes normal to inspection Face and sinus: Yes normal facial exam Mouth: Normal oral and palatal mucosa present Teeth and gingiva: dentition normal Eyes General: appearance normal, both eyes and all related structures Pupils: Equal, round and reactive pupils present Resp Effort & Inspection: normal respiratory effort Cardio Rate: regular rate Rhythm: regular rhythm GI Palpation (GI): Soft to palpation and nontender General: Yes no CVA tenderness Back/Spine/Pelvis Back: no CVA tenderness Skin General skin exam: no rashes or lesions noted Neuro General: moves all extremities Cranial nerves: Yes Equal, round and reactive pupils present Extrem General: Yes normal to inspection Psych Appearance: grossly normal Assessment & Plan Assessment & Plan (1) C. difficile enteritis: Comment: no other acute infections seen Code(s): A04.72 - Enterocolitis due to Clostridium difficile, not specified as recurrent Category: Medical Plan: No further interventions at this time Follow GI prn need. Coding Level of Care Code Est Pt Level 3 (58978) Diagnoses C. difficile enteritis A04.72
[2024-01-07 13:40] VITALS: PULSE 77; O2SAT 99; BMI 28.3
== END 2024-01-07 14:57 | disposition home or self-care (01) ==
LOC: HO.HID 14:08
PROVIDERS: PCP Nurse Practitioner Family; Visit Provider Internal Medicine
DX: A04.72 Enterocolitis due to Clostridium difficile, not specified as recurrent (principal)
CPT/HCPCS: 99213

== ENCOUNTER → 2024-01-07 14:08 | Outpatient (BNVA) | payer MEDICAID, SELFPAY | PROVIDERS: PCP Nurse Practitioner Family; Visit Provider Internal Medicine | DX: A04.72 Enterocolitis due to Clostridium difficile, not specified as recurrent (principal) | CPT/HCPCS: 99212 ==

== ENCOUNTER 2024-03-10 12:45 | Outpatient (REF) | payer MEDICAID, SELFPAY ==
--- OUTSIDE RECORDS SUMMARY | 2024-03-10 14:03 | XMS_ITS | Encounter Summary ---
Author Organization [facility] Address [address] [place] [address] Care Team Providers Care Independent Insurance Adjuster Name Role Phone Melyssa Alonso MD Primary Care Provider Encounter Details Date Type Department Care Team (Late st Contact Info) Description 01/10/2021 Orders Only [facility] [address] [place] [id number] Rehan Gerard, RN [address] [place] [id number] Medications Social History Tobacco Use Types Packs/Day Years Used Date Smoking Tobacco: Never Assessed Comments Unknown Sex and Gender Information Value Date Recorded Sex Assigned at Not on file Legal Sex Female 10:53 AM EDT Gender Identity Not on file Sexual Orientation Not on file documented as of this encounter Plan of Treatment Not on file documented as of this encounter Visit Diagnoses Not on filedocumented in this encounter Care Teams Independent Insurance Adjuster Relationship Specialty Start Date End Date Melyssa Alonso MD [facility] [address] [place] [address] PCP - General Internal Medicine 07/15/20 documented as of this encounter
--- OUTSIDE RECORDS SUMMARY | 2024-03-10 14:03 | XMS_ITS | Encounter Summary ---
Author Organization [employer] Address [address] [place] [address] [address] [place] [address] Care Team Providers Care Soil Scientist Name Role Phone Vidhya Padilla Primary Care Provider [phone] Name, Les GARCIA Primary Care Provider [phone] Reason for Visit * Reason Onset Date Comments Referral 03/01/2022 Encounter Details Date Type Department Care Team (Late st Contact Info) Description 03/01/2022 Telephone [facility] [address] [place] [address] Vidhya Padilla FNP [address] [place], [place] [phone] Referral Social History Tobacco Use Types Packs/Day Years Used Date Smoking Tobacco: Never Passive Smoke Exposure: Never Smokeless Tobacco: Never Alcohol Use Standard Drinks/Week Comments Never 0 (1 standard drink = 0.6 oz pur e alcohol) Comments Unknown Sex and Gender Information Value Date Recorded Sex Assigned at Female 12/05/2021 10:15 AM EDT Legal Sex Female 10:15 AM EDT Gender Identity Female 12/05/2021 10:15 AM EDT Sexual Orientation Lesbian or Trent 12/05/2021 10 :15 AM EDT COVID-19 Exposure Response Date Recorded In the last 10 days, have yo u been in contact with someone who was confirmed or suspected to have Coronavirus/COVID-19? No / Unsure 02/07/2022 9:30 AM EST documented as of this encounter Miscellaneous Notes * Telephone Encounter - Cathie Navas RN - 03/01/2022 2:52 PM EST Telephone call to [facility] urology in regards to pt's referral. Pt needs referral for cyst in kidney andabdominal pain per [facility]. N28.1 and R10.9 respectively. * Telephone Encounter - Nolan Carlisle - 03/01/2022 9:03 AM EST Tc from pt requesting a referral to [facility]. Pt states she received a call and she was advised to request a referral do to something in her Left Kidney. Roof Bolter Helper was attempting togather details, pt was unable to provide details. [facility] [address] [place] [address] If any questions please contact pt at [phone] documented in this encounter Plan of Treatment Not on file documented as of this encounter Visit Diagnoses Diagnosis Renal cyst- Primary Unspecified congenital cystic kidney disease documented in this encounter Care Teams Soil Scientist Relationship Specialty Start Date End Date Vidhya Padilla FNP [address] [place] [address] PCP - General Family Medicine 02/07/22 10/08/23 Name, MD Les [address] [place] [address] PCP - General Internal Medicine 10/09/23 documented as of this encounter
--- OUTSIDE RECORDS SUMMARY | 2024-03-10 14:03 | XMS_ITS | Clinical Summary ---
Author Organization [employer] Address [address] [facility] 7[address] [place] [address] Care Team Providers Care Vision Rehabilitation Therapist Name Role Phone Name, Les GARCIA Primary Care Provider [phone] Allergies Active Allergy Reactions Criticality Noted Date Comments Bupropion Swelling,Angioedema High 11/28/2016 Penicillins Rash Low 03/31/2020 Medications dicyclomine (Bentyl) 20 MG tablet TAKE 2 TABLETS 4 TIMES A DAY 01/05/20 22 Active docusate sodium (Colace) 100 MG capsule TAKE 1 CAPSULE BY MOUTH TWICE A DAY 01/22/20 22 Active Emgality 120 MG/ML auto-injector INJECT 120 MG SUBCUTANEOUS EVERY 28 DAYS 12/14/19 22 Active nortriptyline (Pamelor) 50 MG capsule TAKE 2 CAPSULES BY MOUTH EVERY EVENING 01/02/20 22 Active pantoprazole (ProtoNix) 40 MG EC tablet Take 1 tablet by mouth 1 (one) time each day. 01/20/20 22 Active Metamucil [facility] Fiber 63 % powder MIX 1 TBSP 2 TIMES A DAY INTO AT LEAST 8 OZ OF WATER OR JUICE BEFORE DRINKING 01/22/20 22 Active SUMAtriptan (Imitrex) 100 MG tablet TAKE 1 AT ONSET OF MIGRAINE, MAY REPEAT IN 2 HOURS, MAXIMUM 2/DAY, 6/WEEK 12/27/19 22 Active zolpidem CR (Ambien CR) 12.5 MG ER tablet TAKE 1 TABLET BY MOUTH EVERY DAY AT BEDTIME NEEDED 12/22/19 22 Active botulinum toxin Type A, Cosm, (Botox) 100 units reconstituted solution Inject every 3 months Active acetaminophen (Tylenol) 325 MG tablet 2 tablets every 4 hours Active Lactobacillus-Inu yee (CULTURELLE DIGESTIVE DAILY PO) Take by mouth. 1 capsule daily Active ARIPiprazole (Abilify) 15 MG tablet Take 15 mg by mouth in the morning. 05/19/19 Active busPIRone (Buspar) 15 MG tablet Take 1 tablet by mouth 2 times daily. 07/24/19 Active nabumetone (Relafen) 750 MG tablet Take 1 tablet by mouth 2 times daily. 08/11/19 Active prochlorperazine (Compazine) 10 MG tablet TAKE 1 TABLET BY MOUTH TWICE A DAY NEEDED FOR NAUSEA AND VOMITING 05/28/19 23 Active A.E.R. Witch Aixa pad APPLY TOPICALLY IF NEEDED FOR IRRITATION OR HEMORRHOIDS. *NC* 07/01/19 Active metoprolol tartrate (Lopressor) 25 MG tablet TAKE 1 TABLET BY MOUTH TWICE A DAY 180 tablet 3 10/29/19 24 Active cholecalciferol (Vitamin D3) 25 MCG (1000 UT) tabletIndications :Vitamin D insufficiency TAKE 1 TABLET BY MOUTH EVERY DAY IN THE MORNING 90 tablet 1 01/14/20 24 Active lisinopril 20 MG tabletIndications :Primary hypertension TAKE 1 TABLET BY MOUTH EVERY DAY 90 tablet 1 02/06/19 25 Active Active Problems Problem Noted Date Diagnosed Date Abdominal mass 12/22/2022 12/22/2022 Acute diverticulitis 12/22/2022 12/22/2022 Colitis 12/22/2022 12/22/2022 Encounter to discuss test results 12/22/2022 12/22/2022 Epigastric pain 12/22/2022 12/22/2022 Irritable bowel syndrome with diarrhea 12/22/2022 Lower abdominal pain 12/22/2022 12/22/2022 Pelvic pain in female 12/22/2022 12/22/2022 Renal cyst 12/22/2022 12/22/2022 Tubular adenoma of colon 12/22/2022 023 Diarrhea 09/01/2022 12/22/2022 Overview (12/22/2022): Last Assessment & Plan: Pt c/o of chronic diarrhea and ab pain and was seen at our clinic last week. Pt was was suppose to have stool studies from last week but has insufficient stool sample. So we will repeat stool sample today. Her other records from the last colonoscopy have not been received. If all comes back negative we will perform colonoscopy to r/o microscopic colitis. Clostridioides difficile diarrhea 08/30/2022 Assessment & Plan (08/30/2022 1:48 PM EDT): It does not appear that patients C. Diff infection has been cured. Gave patient a new prescription for vancomycin Take 1 capsule (125 mg) by mouth 4 times daily for 10 days, THEN 1 capsule (125 mg) 2 times daily for 7 days, THEN 1 capsule (125 mg) in the morning for 7 days, THEN 1 capsule (125 mg) every other day. Also sent a stat referral to see Dr. Sandra with ID. Proper sanitary precautions were taking in the clinic today. Maintenance was called to sanitize the exam room and restroom that the patient had used. Sigmoid diverticulitis 05/31/2022 Other hemorrhoids 05/31/2022 Vitamin D insufficiency 05/31/2022 Syncope 12/12/2021 Cervicalgia 09/26/2021 Dizziness 09/26/2021 Muscle tension headache 09/26/2021 Optic nerve swelling 03/18/2018 Abnormal finding on MRI of brain 01/25/2018 Primary insomnia 01/25/2018 Refractory migraine without aura 10/29/2017 Anemia 05/28/2017 Heel pain 05/28/2017 Iron deficiency anemia 05/28/2017 Obesity 05/28/2017 Abnormal breast exam 10/17/2016 Essential hypertension 10/17/2016 Depressive disorder 06/10/2012 Eczema 06/10/2012 GERD (gastroesophageal reflux disease) 2 History of hysterectomy 10/17/2011 Encounters Date Type Department Care Team Description 02/07/2024 Refill [facility] [address] [place] [address] Vidhya Padilla FNP Primary hypertension 01/13/2024 Refill [facility] [address] [place], [place] [phone] Vidhya Padilla FNP Vitamin D insufficiency 01/10/2024 Telephone [facility] [address] [place] [address] Henna Rangel RN [facility] Gastro OV note from Last 3 Months Immunizations Name Administration Dates Next Due Influenza injectable quadriv alent IIV4 with preservative 10/29/2017 Influenza injectable quadriv alent preservative free 12/25/2022,11/17/2021,12/29/2020,2018,11/28/2016 Influenza, IIV3, injectable 10/16/2013, 9 Influenza, Split (incl. arturo fied surface antigen) 10/17/2011 MMR 09/01/2010 Moderna Covid-19 Vaccine 12+ 12/29/2020 Pfizer Covid-19 Vaccine 12+ Bivalent 12/16/2021 TD (adult), 2 Lf tetanus tox oid, preservative free, adsorbed 07/19/2021 Tdap 09/01/2010 Zoster, Recombinant 10/18/2021,07/19/2021 Family History Medical History Relation Name Comments Gout Father Hypertension Father Prostate cancer Father Breast cancer Maternal Grandmother Heart attack Maternal Grandmother Hypertension Mother Relation Name Status Comments Father Maternal Grandmother Mother Social History Tobacco Use Types Packs/Day Years Used Date Smoking Tobacco: Never Passive Smoke Exposure: Never Smokeless Tobacco: Never Tobacco Cessation:Counseling Given: Not Answered Alcohol Use Standard Drinks/Week Comments Never 0 (1 standard drink = 0.6 oz pur e alcohol) Depression Answer Date Recorded Patient Health Questionnaire-9 Score 18 05/31/2022 Housing Stability Answer Date Recorded What is your housing situation today? I have jayy campos 11/26/[address] you li ve. Do you have problems with any of the following? None of the above 11/26/2022 Food Insecurity Answer Date Recorded Within the past 12 months, y ou worried that your food would run out before you got money to buy more: Sometimes True 2022 Within the past 12 months,th e food you bought just didn't last and you didn't have enough money to get more: Sometimes True 11/26/2022 Transportation Answer Date Recorded In the past 12 months, has l ack of transportation kept you from medical appts, meetings, work or from getting things needed for daily living? No 11/26/2022 Utilities Answer Date Recorded In the past 12 months, has t he electric, gas, oil or water company threatened to shut off services in your home? Yes 11/12/2022 Depression Answer Date Recorded Patient Health Questionnaire-2 Score 6 05/31/2022 Comments Unknown Sex and Gender Information Value Date Recorded Sex Assigned at Female 12/05/2021 10:15 AM EDT Legal Sex Female 10:15 AM EDT Gender Identity Female 12/05/2021 10:15 AM EDT Sexual Orientation Lesbian or Trent 12/05/2021 10 :15 AM EDT Last Filed Vital Signs Vital Sign Reading Time Taken Comments Blood Pressure 118/82 12/25/2022 1:08 PM EST Pulse 83 12/25/2022 1:08 PM EST Temperature 36.3 ??C (97.3 ??F) 12/25/2022 1:08 PM ES T Respiratory Rate 16 12/25/2022 1:08 PM EST Oxygen Saturation 100% 12/25/2022 1:08 PM EST Inhaled Oxygen Concentration - - Weight 76 kg (167 lb 9.6 oz) 12/25/2022 1:08 PM EST Height 162.6 cm (5' 4 ) 12/25/2022 1:08 PM EST Body Mass Index 28.77 12/25/2022 1:08 PM EST Plan of Treatment Health Maintenance Due Date Last Done Comments CT Colonography 1964 FIT DNA/Cologuard 1964 FIT 1964 FOBT 1964 HIV Screening 1964 Sigmoidoscopy 1964 Alcohol/Substance Use Screening 1976 Hepatitis B Vaccines (1 of 3 - 19+ 3-dose series) 05/20/1983 Pap Smear 1985 Cervical Cancer Screening 1994 HPV/Cotest 1994 Pneumococcal Vaccine: 50+ Years (1 of 1 - PCV) 2014 Depression Monitoring (PHQ-9) 11/30/2022 05/31/2022, 05/31/2022 Mammogram 01/26/2023 01/26/2021, 12/0 02/2019, 01/06/2020, Additional history exists Depression Screening 06/01/2023 05/31/2022, 06/01/19 23 SDOH Screening 06/01/2023 05/31/2022 COVID-19 Vaccine ( season) 2023 12/16/2021, 12/29/2020, 06/16/2020, Additional history exists Influenza Vaccine (#1) 2023 , 11/17/2021, 12/29/2020, Additional history exists Tobacco Screening 12/26/2023 12/25/2022 Colonoscopy 05/10/2025 05/10/2022 Colorectal Cancer Screening 05/10/2025 Lipid Panel 08/05/2026 08/05/2021 DTaP/Tdap/Td Vaccines (3 - Td or Tdap) 07/20/2031 07/19/2021, 09/01/2010 RSV Patients and Patients Aged 60 years or older (1 - 1-dose 75+ series) 05/20/2039 Zoster Vaccines Completed 10/18/2021, 07/19/2021 Hepatitis C Screening Completed 03/14/2023 HIB Vaccines Aged Out No longer eligi ble based on patient's age to complete this topic HPV Vaccines Aged Out No longer eligi ble based on patient's age to complete this topic Hepatitis A Vaccines Aged Out No long er eligible based on patient's age to complete this topic IPV Vaccines Aged Out No longer eligi ble based on patient's age to complete this topic Meningococcal Vaccine Aged Out No kevin ez eligible based on patient's age to complete this topic Pneumococcal Vaccine: Pediatrics (0 to 5 Years) and At-Risk Patients (6 to 49) Years) Aged Out No longer eligible based on patient's age to complete this topic RSV under 20 months Aged Out No longe r eligible based on patient's age to complete this topic Rotavirus Vaccines Aged Out No longer eligible based on patient's age to complete this topic Procedures Procedure Name Priority Date/Time Associated Diagnosis Comments HEPATITIS PANEL, GENERAL Routine 03/14/2023 10:20 AM EST HM COLONOSCOPY Routine 05/10/2022 8:39 AM EDT LIPID PANEL, STANDARD Routine 08/05/2021 9:50 AM EDT MAMMOGRAM GENERIC Routine 01/26/2021 12: 48 PM EST from Last 3 Months or Most Recently Relevant to Health Maintenance Results * Hepatitis Panel, General (03/14/2023 10:20 AM EST) Pathologist [facility] Hepatitis A IgM Nonreactive Nonreactive [facility] Comment:IgM antibodies to QUEZADA V not detected; does not exclude earlyacute or recovered HAV infection. ~Hepatitis B Surface Antibody NONREACTIVE Nonreactive [facility] Comment:Nonreactive: < 8.00 mIU/mL Hepatitis B Core Antibody Nonreactive Nonreactive [facility] Hepatitis C Antibody Nonreactive Nonreactive [facility] Comment:Antibodies to HCV no t detected; does not exclude early acuteHCV infection. Hepatitis B Surface Ag Negative Negative [facility] 03/14/2023 10:2 0 AM EST 03/14/2023 10:26 AM EST us Generic External Data Provider LAB BLOOD ORDERAB LES Final Result [facility] [address] [place] [phone] * Colonoscopy (05/10/2022 8:39 AM EDT) [facility] Colonoscopy Normal Normal Narrative Shanice Perez - 05/10/2022 8:39 AM EDT Recommended 3 year follow up ([facility]) us Historical Provider HEALTH MAINTENANCE Edited Result - Final * (ABNORMAL) LIPID PANEL, STANDARD (08/05/2021 9:50 AM EDT) Pathologist [facility] Chol/HDLC Ratio 4.1 <5.0 (calc) [facility] Cholesterol, Total 239(H) <200 mg/dL [facility] HDL Cholesterol 58 > OR = 50 mg/dL [facility] LDL Cholesterol 156(H) mg/dL (calc) [facility] Comment: Reference range: <100 ?? Desirable range <100 mg/dL for primary prevention; ?? <70 mg/dL for patients with CHD or diabetic patients ?? with > or = 2 CHD risk factors. ?? LDL-C is now calculated using the Gildardo ?? calculation, which is a validated novel method providing ?? better accuracy than the Friedewald equation in the ?? estimation of LDL-C. ?? Eliceo AMATO et al. ROLDAN. 2013;310(19): 8106-0940 ?? (http://education.Sravnikupi/faq/WVI678) Non-HDL Cholesterol 181(H) <130 mg/dL (calc) [facility] Comment: For patients with diabetes plus 1 major ASCVD risk ?? factor, treating to a non-HDL-C goal of <100 mg/dL ?? (LDL-C of <70 mg/dL) is considered a therapeutic ?? option. Triglycerides 126 <150 mg/dL [facility] 08/05/2021 9:50 AM EDT Claribel Grissom MD LAB BLOOD ORDERABLES Final R esult Performing Organization Address City/State/[facility] Co de Phone Number [facility] [address] * Mammography Report 1 (01/26/2021 12:48 PM EST) Anatomical Region Laterality Modality Breast Bilateral Mammography 01/26/2021 12:4 8 PM EST Narrative 01/27/2021 12:04 PM EST Refer to the Notes tab for result details [facility] Procedure: Mammography Report 1 Procedure Note Provider, MD Arie - 04/30/2022 Refer to the Notes tab for result details [facility] Procedure: Mammography Report 1 Claribel Grissom MD IMG BI PROCEDURES Final Resu lt from Last 3 Months or Most Recently Relevant to Health [facility] Care Teams Vision Rehabilitation Therapist Relationship Specialty Start Date End Date Name, MD Les [address] [place] [id number] PCP - General Internal Medicine 10/09/23
--- OUTSIDE RECORDS SUMMARY | 2024-03-10 14:03 | XMS_ITS | Clinical Summary ---
Author Organization [facility] Address [address] [place] [address] Care Team Providers Care Appraiser Name Role Phone Vidhya Padilla CONCRETE POINTER Primary Care Provider [phone] Allergies Active Allergy Reactions Criticality Noted Date Comments Penicillins Unknown Bupropion Hcl Swelling High PER PT Medications hydroCHLOROth iazide (HYDRODIURIL) 12.5 mg tablet HydroCHLOROthiazide 12.5 MG Oral Tablet TAKE 1 TABLET DAILY. Refills: 0 Active Active lisinopril (PRINIVIL,ZES TRIL) 20 mg tablet Take 20 mg by mouth daily. 5 11/03/19 18 Active metoprolol tartrate (LOPRESSOR) 25 mg tablet Take 25 mg by mouth 2 times a day. 5 11/03/19 18 Active nortriptyline (PAMELOR) 50 mg capsule TAKE 2 CAPSULES BY MOUTH ONCE A DAY 3 11/03/19 18 Active zolpidem (AMBIEN) 10 mg tablet TAKE 1 TABLET DAILY AT BEDTIME NEEDED Active onabotulinumt oxin A (BOTOX) 100 unit recon soln injection every 3 months[address] ve pantoprazole [address] (PROTONIX) 20 mg tablet Take 20 mg by mouth daily as needed. 5 09/14/19 18 Active sucralfate (CARAFATE) 1 gram tablet Take 1 g by mouth 4 times a day. Active ARIPiprazole (ABILIFY) 5 mg tablet Take 5 mg by mouth daily. Active bisacodyL (DULCOLAX) 5 mg EC tablet TOME DOS TABLETAS POR V A ORAL DOS VECES AL D A SEG N LO INDICADO 08/28/19 Active dicyclomine (BENTYL) 10 mg capsule TAKE 1 TO 2 CAPSULES POR V A ORAL CUATRO VECES AL D A CUANDO SEA NECESARIO FOR CRAMPING 10/23/19 Active ondansetron (ZOFRAN) 4 mg tablet 10/30/19 Active senna 8.6 mg tablet 09/23/19 Active diclofenac (VOLTAREN) 1% gel 05/11/19 Active magnesium gluconate (MAGONATE) 27 mg magnesium (500 mg) tablet Take 1 tablet (500 mg total) by mouth once a day. Take 1 tablet daily 30 tablet 06/29/19 Active riboflavin (VITAMIN B2) 100 mg tablet Take 4 tablets once a day 120 tablet 06/29/19 Active galcanezumab- gnlm (Emgality Pen) 120 mg/mL pen injectorIndic ations:Intrac table persistent migraine aura without cerebral infarction and without status migrainosus,D Sarbjit lyn le tension headache INJECT 120 MG SUBCUTANEOUS EVERY 28 DAYS 1 mL 10/04/19 Active SUMAtriptan (IMITREX) 100 mg tablet TAKE 1 AT ONSET OF MIGRAINE, MAY REPEAT IN 2 HOURS, MAXIMUM 2/DAY, 6/WEEK 12 tablet 11 01/14/20 Active Active Problems Problem Noted Date Diagnosed Date Diarrhea 09/01/2022 Assessment & Plan (09/01/2022 11:24 AM EDT): Pt c/o of chronic diarrhea and ab pain and was seen at our clinic last week. Pt was was suppose to have stool studies from last week but has insufficient stool sample. So we will repeat stool sample today. Her other records from the last colonoscopy have not been received. If all comes back negative we will perform colonoscopy to r/o microscopic colitis. 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 Primary insomnia 01/25/2018 Abnormal finding on MRI of brain 01/25/2018 Migraine aura, persistent, intractable 2 Encounters Date Type Department Care Team Description 01/11/2024 Refill [facility] Neurology [address] [place] [address] Mary Maria MD 01/08/2024 Telephone [facility] Neurology [address] [place] [address] Mary Maria MD rescheduled appt 12/26/2023 8:54 AM EST - 12/26/2023 11:59 PM EST Hospital Encounter [facility] Neurodiagnostics [address] [place] [address] Giovany Machado MD 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 (Primary Dx) Discharge Disposition: Home or Self Care (01) from Last 3 Months Family History Medical History Relation Name Comments Hypothyroidism Brother Hypertension Father Prostate cancer Father Hypertension Mother Hypothyroidism Mother Relation Name Status Comments Brother Father Mother Social History Tobacco Use Types Packs/Day Years Used Date Smoking Tobacco: Never Smokeless Tobacco: Never Tobacco Cessation:Counseling Given: Not Answered Comments:: Alcohol Use Standard Drinks/Week Comments Not Currently 0 (1 standard drink = 0.6 oz pur e alcohol) Comments No Sex and Gender Information Value Date Recorded Sex Assigned at Female 09/25/2021 10:10 AM EDT Legal Sex Female 8:11 AM EDT Gender Identity Female 09/25/2021 10:10 AM EDT Sexual Orientation Lesbian or Trent 09/25/2021 10 :10 AM EDT Last Filed Vital Signs Vital Sign Reading Time Taken Comments Blood Pressure 92/60 06/29/2023 9:25 AM EDT Pulse 59 06/29/2023 9:25 AM EDT Temperature 36.7 ??C (98 ??F) 06/29/2023 9:25 AM EDT Respiratory Rate 18 09/01/2022 9:43 AM EDT Oxygen Saturation 98% 06/29/2023 9:25 AM EDT Inhaled Oxygen Concentration - - Weight 75.1 kg (165 lb 8 oz) 06/29/2023 9:25 AM EDT Height 162.6 cm (5' 4 ) 06/28/2022 10:02 AM EDT Body Mass Index 28.41 06/28/2022 10:02 AM EDT Plan of Treatment Upcoming Encounters Date Type Department Care Team (Late st Contact Info) Description 03/26/2024 9:30 AM EST Appointment [facility] Neurodiagnostics [address] [place] [address] Giovany Machado MD [address] [place] [address] 07/03/2024 9:00 AM EDT Office Visit [facility] Neurology [address] [place] [address] Mary Maria MD [address] [place] [address] Health Maintenance Due Date Last Done Comments Cervical Cancer Screening 1964 Cologuard 1964 Colon Cancer Screening 1964 Colonoscopy 1964 FOBT / Fit Test 1964 HIV Screening 1964 HPV and Pap Smear 1964 Hepatitis C Screening 1964 Pap Smear 1964 Sigmoidoscopy 1964 Hepatitis B Vaccines (1 of 3 - 19+ 3-dose series) 05/20/1983 Mammogram 01/26/2023 01/26/2021, 12/06, 11/15/2017 COVID-19 Vaccine ( season) 2023 12/16/2021, 12/29/2020, 06/16/2020, Additional history exists Influenza Vaccine (#1) 2023 , 11/17/2021, 12/29/2020, Additional history exists Alcohol/Substance Use Screening 02/06/2024 Depression Screening and Follow-Up 02/06/2024 Social Drivers of Health Annual Screening 02/06/2024 DTaP,Tdap,and Td Vaccines (3 - Td or Tdap) 07/20/2031 07/19/2021, 09/01/2010 RSV Vaccine (60+ years old and patients) (1 - 1-dose 75+ series) 05/20/2039 Zoster Vaccines Completed 10/18/2021, 07/19/2021 Pneumococcal Vaccine: Pediatric (0-5 Years) and At-Risk Patients (6-64 Years) Aged Out No longer eligible based on patient's age to complete this topic [facility] Care Teams Appraiser Relationship Specialty Start Date End Date Vidhya Padilla NP [address] [place] [address] PCP - General Family Medicine 07/27/22
--- OUTSIDE RECORDS SUMMARY | 2024-03-10 14:03 | XMS_ITS | Encounter Summary ---
Author Organization [employer] Address [address] [place] [address] [address] [place] [address] Care Team Providers Care Correctional Food Service Supervisor Name Role Phone Vidhya Padilla Primary Care Provider [phone] Name, Les GARCIA Primary Care Provider [phone] Reason for Visit * Reason Comments Med Change Request Encounter Details Date Type Department Care Team (Late st Contact Info) Description 08/02/[address] [facility] MEDICINE [address] [place] [address] Vidhya Padilla FNP [address] [place] [address] Social History Tobacco Use Types Packs/Day Years Used Date Smoking Tobacco: Never Passive Smoke Exposure: Never Smokeless Tobacco: Never Alcohol Use Standard Drinks/Week Comments Never 0 (1 standard drink = 0.6 oz pur e alcohol) Depression Answer Date Recorded Patient Health Questionnaire-9 Score 18 05/31/2022 Depression Answer Date Recorded Patient Health Questionnaire-2 [...] suspected to have Coronavirus/COVID-19? No / Unsure 08/02/2022 8:40 AM EDT documented as of this encounter Plan of Treatment Not on file documented as of this encounter Visit Diagnoses Not on filedocumented in this encounter Additional Health Concerns Assessment Noted Time PHQ-9 Depression Total Score: 18 023 9:14 AM EDT documented as of this encounter Care Teams Correctional Food Service Supervisor Relationship Specialty Start Date End Date Vidhya Padilla FNP [address] [place] [address] PCP - General Family Medicine 02/07/22 10/08/23 Name, MD Les [address] [place] [address] PCP - General Internal Medicine 10/09/23 documented as of this encounter
--- OUTSIDE RECORDS SUMMARY | 2024-03-10 14:03 | XMS_ITS | Encounter Summary ---
Author Organization [facility] Address [address] [place] [address] Care Team Providers Care Human Resources Operations Director Name Role Phone Vidhya Padilla NP Primary Care Provider [phone] Encounter Details Date Type Department Care Team (Late Contact Info) Description 11/08/2020 Orders Only [facility] [address] [place] [address] Santy Madison MD [address] [place] [id number] Social History Tobacco Use Types Packs/Day Years Used Date Smoking Tobacco: Never Smokeless Tobacco: Never Comments:: Alcohol Use Standard Drinks/Week Comments Not Currently 0 (1 standard drink = 0.6 oz pur e alcohol) Comments No Sex and Gender Information Value Date Recorded Sex Assigned at Female 09/25/2021 10:10 AM EDT Legal Sex Female 8:11 AM EDT Gender Identity Female 09/25/2021 10:10 AM EDT Sexual Orientation Lesbian or Trent 09/25/2021 10 :10 AM EDT documented as of this encounter Plan of Treatment Upcoming Encounters Date Type Department Care Team (Late Contact Info) Description 03/26/2024 9:30 AM EST Appointment [facility] Neurodiagnostics [address] [place] [address] Giovany Machado MD [address] [place], [place] [id number] 07/03/2024 9:00 AM EDT Office Visit [facility] Neurology [address] [place] [address] Mary Maria MD [address] [place] [address] documented as of this encounter Visit Diagnoses Not on filedocumented in this encounter Additional Health Concerns Infection Onset Date Last Indicated Resolved Time R/O C.diff 08/25/2022 08/25/2022 08/25/2022 3:19 PM EDT R/O C.diff 09/06/2022 09/06/2022 09/06/2022 12:3 1 PM EDT R/O C.diff 10/03/2022 10/03/2022 10/04/2022 4:31 AM EDT documented as of this encounter Care Teams Human Resources Operations Director Relationship Specialty Start Date End Date Vidhya Padilla NP [address] [place] [address] PCP - General Family Medicine 07/27/22 documented as of this encounter
--- OUTSIDE RECORDS SUMMARY | 2024-03-10 14:03 | XMS_ITS | Encounter Summary ---
Author Organization [employer] Address [address] [place] [address] [address] [place] [address] Care Team Providers Care Airport Screener Name Role Phone Vidhya Padilla Primary Care Provider [phone] NameLes MD Primary Care Provider [phone] Encounter Details Date Type Department Care Team (Late st Contact Info) Description 07/20/2022 [facility] [address] [place] [address] Vidhya Padilla FNP [address] [place] [address] Social History Tobacco Use Types Packs/Day Years [...] or Trent 12/05/2021 10 :15 AM EDT documented as of this encounter Plan of Treatment Not on file documented as of this encounter Procedures Procedure Name Priority Date/Time Associated Diagnosis Comments HM COLONOSCOPY Routine 05/10/2022 8:39 AM EDT documented in this encounter Results * Hm Colonoscopy (05/10/2022 8:39 AM EDT) Colonoscopy Normal Normal Narrative Shanice Perez - 05/10/2022 8:39 AM EDT Recommended 3 year follow up ([facility] us Historical Provider HEALTH MAINTENANCE Edited Result - Final documented in this encounter Visit Diagnoses Not on filedocumented in this encounter Additional Health Concerns Assessment Noted Time PHQ-9 Depression Total Score: 18 023 9:14 AM EDT documented as of this encounter Care Teams Airport Screener Relationship Specialty Start Date End Date Vidhya Padilla FNP [address] [place] [address] PCP - General Family Medicine 02/07/22 10/08/23 Name, MD Les [address] [place] [address] PCP - General Internal Medicine 10/09/23 documented as of this encounter
--- OUTSIDE RECORDS SUMMARY | 2024-03-10 14:03 | XMS_ITS | Encounter Summary ---
Author Organization [employer] Address [address] [place] [address] [address] [address] Care Team Providers Care Shotblast Operator Name Role Phone Claribel Grissom MD Primary Care Provider Vidhya Parker Primary Care Provider [phone] Les Torres MD Primary Care Provider [phone] Encounter Details Date Type Department Care Team (Late st Contact Info) Description 01/25/2022 Telephone [facility] MEDICINE [address] [place] [address] Claribel Grissom MD Social History Tobacco Use Types Packs/Day Years [...] on filedocumented in this encounter Care Teams Shotblast Operator Relationship Specialty Start Date End Date Claribel Grissom MD PCP - General Family Medicine 12/09/18 02/06/22 Vidhya Padilla FNP [address] [place] [address] PCP - General Family Medicine 02/07/22 10/08/23 Les Torres MD [address] [place] [address] PCP - General Internal Medicine 10/09/23 documented as of this encounter
--- OUTSIDE RECORDS SUMMARY | 2024-03-10 14:03 | XMS_ITS | Referral Summary ---
Author Organization [facility] Address [address] [place] [address] Care Team Providers Care Wireless Manager Name Role Phone Vidhya Padilla GAME PROGRAMER Primary Care Provider [phone] Encounters Date Type Department Care Team Description 01/11/2024 Refill [facility] Neurology [address] [place] [address] Mary Maria MD 01/08/2024 Telephone [facility] Neurology [address] [place] [address] Mary Maria MD rescheduled appt 12/26/2023 8:54 AM EST - 12/26/2023 11:59 PM EST Hospital Encounter [facility] Neurodiagnostics [address] [place] [address] Giovany Machado MD 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 Take 1 tablet daily 30 tablet 06/29/19 Active riboflavin (VITAMIN B2) 100 mg tablet Take 4 tablets once a day 120 tablet 06/29/19 24 Active galcanezumab- gnlm (Emgality Pen) 120 mg/mL pen injectorIndic ations:Intrac table persistent migraine aura without cerebral infarction and without status migrainosus,D Sarbjit lyn le tension headache INJECT 120 MG SUBCUTANEOUS EVERY 28 DAYS 1 mL 10/04/19 24 Active SUMAtriptan (IMITREX) 100 mg tablet TAKE 1 AT ONSET OF MIGRAINE, MAY REPEAT IN 2 HOURS, MAXIMUM 2/DAY, 6/WEEK 12 tablet 11 01/14/20 24 Active Active Problems Problem Noted Date Diagnosed [...] brain 01/25/2018 Migraine aura, persistent, intractable 2 Social History Tobacco Use Types Packs/Day Years [...] Info) Description 03/26/2024 9:30 AM EST Appointment [facility] Neurodiagnostics [address] [place] [address] Giovany Machado MD [address] [place] [address] 07/03/2024 9:00 AM EDT Office Visit [facility] Neurology [address] [place] [address] Mary Maria MD [address] [place] [address] Insurance [facility] Care Teams Wireless Manager Relationship Specialty Start Date End Date Vidhya Padilla NP [address] [place] [address] PCP - General Family Medicine 07/27/22
--- OUTSIDE RECORDS SUMMARY | 2024-03-10 14:03 | XMS_ITS | Encounter Summary ---
Author Organization [facility] Address [address] [place] [address] Care Team Providers Care Holistic Nutritionist Name Role Phone Vidhya Padilla PLAN COORDINATOR Primary Care Provider [phone] Reason for Visit * Reason Onset Date Comments PAC Appt Request - New 07/27/2022 Encounter Details Date Type Department Care Team ([facility] Contact Info) Description 07/27/2022 Telephone [facility] [address] [place] [address] Telephone Intake, Staff PAC Appt Request - New Social History Tobacco Use Types Packs/Day Years [...] AM EDT documented as of this encounter Miscellaneous Notes * Telephone Encounter - Rere Stuart - 08/17/2022 3:00 PM EDT Spoke to pt offered her 08/[address] Pineda, pt unable to come in. Pt scheduled 08/[address] Varghese / Dr Long * Telephone Encounter - Marilu Quintero - 08/16/2022 3:11 PM EDT RE- Following up on this requested, Please reach out to pt for scheduling. Thank you, Marilu Sen * Telephone Encounter - Marilu Quintero - 08/09/2022 2:04 PM EDT Following up on this requested, Please reach out to pt for scheduling. Thank you, Marilu Sen * Telephone Encounter - Marilu Quintero - 08/02/2022 10:11 AM EDT Referring physician office called in checking on the status of when pt will be scheduled for a GI appt. Please reach out to pt for scheduling. * Telephone Encounter - Fede Pineda - 07/27/2022 2:48 PM EDT Patient has referral for diverticulitis, DT wants appt within 4 weeks, first available is February, please call patient with freelance interpreter/translator to schedule appt. documented in this encounter Plan of Treatment Upcoming Encounters Date Type Department Care Team (Late st Contact Info) Description 03/26/2024 9:30 AM EST Appointment [facility] Neurodiagnostics [address] [place] [address] Giovany Machado MD [address] [place] [address] 07/03/2024 9:00 AM EDT Office Visit [facility] Neurology [address] [place] [address] Mary Maria MD [address] [place] [address] documented as of this encounter Visit Diagnoses Not on filedocumented in this encounter Additional Health Concerns Infection Onset Date Last Indicated Resolved Time R/O C.diff 08/25/2022 08/25/2022 08/25/2022 3:19 PM EDT R/O C.diff 09/06/2022 09/06/2022 09/06/2022 12:3 1 PM EDT R/O C.diff 10/03/2022 10/03/2022 10/04/2022 4:31 AM EDT documented as of this encounter Care Teams Holistic Nutritionist Relationship Specialty Start Date End Date Vidhya Padilla NP [address] [place] [address] PCP - General Family Medicine 07/27/22 documented as of this encounter
--- OUTSIDE RECORDS SUMMARY | 2024-03-10 14:03 | XMS_ITS | Encounter Summary ---
Author Organization [employer] Address [address] [facility] [address] [place] [address] Care Team Providers Care Motor Equipment Commanding Officer Name Role Phone Vidhya Padilla Primary Care Provider [phone] Name, Les GARCIA Primary Care Provider [phone] Encounter Details Date Type Department Care Team ([facility] st Contact Info) Description 01/10/2023 Telephone [facility] MEDICINE [address] [place] [address] Vidhya Padilla FNP [address] [place] [address] Social History Tobacco Use Types Packs/Day Years [...] encounter Miscellaneous Notes * Telephone Encounter - Hannah Smith RN - 01/12/2023 5:07 PM EST T/C to pt. For below message through [employer] id - [id number], pt. States she was treated for this by Dr. Veliz, but she has same symptom again. Pt. States she is having this going on since last year, every time she goes to provider office and they gave her antibiotics and this things start again. Pt. States she is having diarrhea, pain and vomiting. Pt. Advised to go to nearest ED in case of any new or worsening symptoms. Pt. Verbally agreed and understood. ----- Message from Vidhya Padilla CNP sent at 01/12/2023 4:14 PM EST ----- Hi, just wondering if you were able to get information re: c-diff from Dr. Veliz' office (from [place]). Also can you please contact pt to see if she was actually treated in September or if she is currently being treated? Thanks! * Telephone Encounter - Hannah Smith RN - 01/12/2023 5:06 PM EST Error * Telephone Encounter - Hannah Smith RN - 01/12/2023 5:06 PM EST ----- Message from Vidhya Padilla CNP sent at 01/12/2023 4:14 PM EST ----- Hi, just wondering if you were able to get information re: c-diff from Dr. Veliz' office (from [place]). Also can you please contact pt to see if she was actually treated in September or if she is currently being treated? Thanks! * Telephone Encounter - Krystal Bueno LPN - 01/10/2023 8:21 AM EST Critical Result Line call received at this time. from [facility] calliing to repot patient is POSitive for CDIFF as resulted yesterday. requests that and be updated. Patient PCP Zane WEATHERS messaged as well. Dr. Veliz may be reached at [phone]. Please follow with . documented in this encounter Plan of Treatment Not on file documented as of this encounter Visit Diagnoses Not on filedocumented in this encounter Additional Health Concerns Assessment Noted Time PHQ-9 Depression Total Score: 18 023 9:14 AM EDT documented as of this encounter Care Teams Motor Equipment Commanding Officer Relationship Specialty Start Date End Date Vidhya Padilla FNP [address] [place] [address] PCP - General Family Medicine 02/07/22 10/08/23 Name, MD Les [address] [place] [address] PCP - General Internal Medicine 10/09/23 documented as of this encounter
--- OUTSIDE RECORDS SUMMARY | 2024-03-10 14:03 | XMS_ITS | Encounter Summary ---
Author Organization [employer] Address [address] [facility] [address] [place] [address] Care Team Providers Care Animal Cruelty Investigator Name Role Phone Vidhya Padilla Primary Care Provider [phone] NameLes MD Primary Care Provider [phone] Encounter Details Date Type Department Care Team ([facility] st Contact Info) Description 03/21/2022 Orders Only [facility] MEDICINE [address] [place] [address] Vidhya Padilla FNP [address] [place] [address] Sigmoid diverticulitis (Primary Dx) Social History Tobacco Use Types Packs/Day Years [...] suspected to have Coronavirus/COVID-19? No / Unsure 03/23/2022 12:53 PM EST documented as of this encounter Plan of Treatment Not on file documented as of this encounter Visit Diagnoses Diagnosis Sigmoid diverticulitis- Primary Diverticulitis of colon (without mention of hemorrhage) documented in this encounter Care Teams Animal Cruelty Investigator Relationship Specialty Start Date End Date Vidhya Padilla FNP [address] [place], [place] [phone] PCP - General Family Medicine 02/07/22 10/08/23 Name, MD Les [address] [place] [address] PCP - General Internal Medicine 10/09/23 documented as of this encounter
--- OUTSIDE RECORDS SUMMARY | 2024-03-10 14:03 | XMS_ITS | Clinical Summary ---
Author Organization [facility] Address [address] [place] [address] Care Team Providers Care Line Operator Name Role Phone Melyssa Alonso MD Primary Care Provider [phone] Allergies Active Allergy Reactions Criticality Noted Date Comments Bupropion Angioedema High 03/31/2020 PER PT PER PT Penicillins Maculopapular Rash 03/31/2020 Other reaction(s): Unknown Medications prednisoLONE Acetate (PRED FORTE) 1 % ophthalmic suspension Instill 1 drop to surgical eye QID for 4 days after procedure DO NOT USE UNTIL AFTER PROCEDURE 5 mL 1 Active Aripiprazole (ABILIFY) 5 MG tablet Take 5 mg by mouth 1 (one) time each day Active Dicyclomine HCl (BENTYL) 10 MG capsule Take 1-2 capsules by mouth 1 (one) time each day if needed for cramping 1 Active hydroCHLOROthia zide (HYDRODIURIL) 12.5 MG tablet Take 12.5 mg by mouth 1 (one) time each day Active Lisinopril (PRINIVIL,ZESTR IL) 20 MG tablet Take 20 mg by mouth 1 (one) time each day 1 Active Metoprolol Tartrate (LOPRESSOR) 25 MG tablet Take 25 mg by mouth in the morning and at bedtime 1 Active Nortriptyline HCl (PAMELOR) 50 MG capsule Take 2 capsules by mouth 1 (one) time each day 1 Active Botulinum Toxin Type A (BOTOX) 100 units injection 100 Units Active Pantoprazole Sodium (PROTONIX) 40 MG EC tablet Take 20 mg by mouth 1 (one) time each day if needed 1 Active Sucralfate (CARAFATE) 1 g tablet Take 1 g by mouth Active SUMAtriptan Succinate (IMITREX) 25 MG tablet Take 100 mg by mouth Active Immunizations Name Administration Dates Next Due COVID-19, mRNA (Moderna Pre Fall 2022) Monovalent, 100 mcg/0.5 ml or 50 mcg/0.25 ml dose 06/16/2020,2020 Influenza,injectable,quad,Prsrv Fr 12/27/2018, Influenza,injectable,quad,preservative 8 Influenza,seasonal,trivalent ,preservative (FLUZONE MDV) 10/16/2013,10/21/2008 Influenza,split(incl.purified surface antigen) 0 10/17/2011 MMR 09/01/2010 Social History Tobacco Use Types Packs/Day Years Used Date Smoking Tobacco: Never Assessed Intimate Partner Violence Answer Date R ecorded Fear of Current or Ex-Partner Not on file Emotionally Abused Not on file 09/28/2022 Physically Abused Not on file 09/28/2022 Sexually Abused Not on file 09/28/2022 Feel Safe at Home Not on file 09/28/2022 Comments Unknown Sex and Gender Information Value Date Recorded Sex Assigned at Not on file Legal Sex Female 10:53 AM EDT Gender Identity Not on file Sexual Orientation Not on file Plan of Treatment Health Maintenance Due Date Last Done Comments Hepatitis C Screening 1964 Pap Smear 1980 DTaP/Tdap/Td (1 - Tdap) 1982 Hep B (1 of 3 - 19+ 3-dose series) 05/20/1983 Mammogram/Breast Imaging 2004 Colon Cancer Screening 2009 Pneumococcal 50+ years (1 of 1 - PCV) 2014 Zoster (Shingrix) (1 of 2) 2014 COVID-19 Vaccine (3 - season) 2023 06/16/2020, 2020 Influenza (#1) 2023 12/27/2018, 10/07, 11/28/2016, Additional history exists Tonometry Discontinued 12/03/2020, 07/15/2020 Eye/Retina Exam Discontinued 02/16/2021, 02/05, 02/16/2021, Additional history exists HPV Vaccine Aged Out No longer eligi ble based on patient's age to complete this topic Hep A Aged Out No longer eligi ble based on patient's age to complete this topic Hib Aged Out No longer eligi ble based on patient's age to complete this topic Meningococcal ACWY Aged Out No longer eligible based on patient's age to complete this topic Procedures * Due to [place] [employer] law, this organization might not be sharing negative HIV tests. Procedure Name Priority Date/Time Associated Diagnosis Comments COMPREHENSIVE EYE EXAM 07/15/2020 from Last 3 Months or Most Recently Relevant to Health Maintenance Results * Due to [place] [employer] law, this organization might not be sharing negative HIV tests. * COMPREHENSIVE EYE EXAM (07/15/2020) [facility] VALENCIA PROCEDURE Final Result from Last 3 Months or Most Recently Relevant to Health Maintenance Insurance MEDICAID MEDICAID Care Teams Line Operator Relationship Specialty Start Date End Date Melyssa Alonso MD [address] [address] PCP - General Internal Medicine 07/15/20
== END 2024-03-10 12:46 | disposition home or self-care (01) ==
LOC: HO.MAMMO 12:45
PROVIDERS: PCP Nurse Practitioner Family; Visit Provider Nurse Practitioner Family
DX: Z12.31 Encounter for screening mammogram for malignant neoplasm of breast (principal)
CPT/HCPCS: 77063; 77067

== ENCOUNTER → 2024-03-10 13:00 | Outpatient (BNV) | payer MEDICAID, SELFPAY | PROVIDERS: PCP Nurse Practitioner Family; Visit Provider Internal Medicine | DX: Z12.31 Encounter for screening mammogram for malignant neoplasm of breast (principal) | CPT/HCPCS: 77063; 77067 ==

== ENCOUNTER 2024-04-28 13:37 | Outpatient (REF) | payer MEDICAID, SELFPAY ==
[2024-04-28 16:58] LABS: Magnesium 2.1 mg/dL (1.6-2.6); Phosphorus 3.9 mg/dL (2.7-4.5)
[2024-04-28 17:00] LABS: Ferritin 41 ng/mL (10-250); Vitamin D 25-OH Total 19.1 ng/mL (>30)
[2024-04-28 17:15] LABS: Folate 12.1 ng/mL (> or = 4.0); Vitamin B12 277 pg/mL (200-900)
[2024-05-01 01:04] LABS: Vitamin A 43 mcg/dL (38-98)
[2024-05-01 17:23] LABS: Alpha-Tocopherol 16.4 mg/L (5.7-19.9); Beta-Gamma Tocopherol 1.3 mg/L (<=4.3)
[2024-05-01 22:33] LABS: Zinc 69 mcg/dL (60-130)
[2024-05-02 02:54] LABS: Vitamin C 0.7 mg/dL (0.3-2.7)
[2024-05-02 16:03] LABS: Nicotinamide <20 ng/mL (see note); Vit B3 - Nicotinic Acid <20 ng/mL (see note); Vitamin B5 (Pantothenic Acid) 41 ng/mL (<275); Vitamin B6 18.6 ng/mL (2.1-21.7)
[2024-05-02 19:34] LABS: Vitamin K1 821 pg/mL (130-1500)
[2024-05-05 13:58] LABS: Vitamin B1 10 nmol/L (8-30)
== END 2024-04-28 13:38 | disposition home or self-care (01) ==
LOC: HO.LAB 13:37
PROVIDERS: PCP Nurse Practitioner Family; Visit Provider Internal Medicine Gastroenterology
DX: R19.7 Diarrhea, unspecified (principal); E83.52 Hypercalcemia
CPT/HCPCS: 36415; 82180; 82306; 82607; 82728; 82746; 83735; 84100; 84207; 84425; 84446; 84590; 84591; 84597; 84630; 99212

== ENCOUNTER 2024-04-28 13:37 | Outpatient (AMB) | payer MEDICAID, SELFPAY ==
--- NOTE | 2024-04-28 14:15 | MHC.OFFVIS ---
Vital Signs 04/28/24 14:17 Height 5 ft 4 in Weight 160 lb 14.999 oz BMI 27.6 BP 111/62 Blood Pressure Location Lt brachial Position Sitting Pulse 81 Intake Visit Reasons: 4 MO F/U Intake Note: Kacy presents in the office as a 4 month follow up. CC: All the same symptoms - she states she has bleeding, nausea, pains in the stomach, diarrhea, pains in the back. Quality Assurance Required: Yes Allergies Penicillins [PENICILLINS] Allergy (Intermediate, Verified 01/07/24 13:39) HIVES/SWELLING bupropion [From Wellbutrin] Allergy (Verified 01/07/24 13:39) hives, swelling HPI HPI 4 MO F/U: Details: 58yr old f here for f/u for pos c diff gene PCR and diarrhea RECAP: She tried the vanc for 10d but never got the rifaximin for 20d --? not covered by insurance feels it made no change she still has diarrhea she tried levsin didnt help her sx she still doesnt want to try fecal transplant she takes probiotic she felt hemorrhoids were acting up-was sent to dr romulo hurley she is taking fiber Endoscopies: colonoscopy-- 05/2022--- normal random bx, tubular adenomas removed TEST: CT A/P:12/28-- diverticulosis, (prior scan with possible descending colitis) abdo 12/2022--- nml mesenteric duplex-- 02/28/23--nml Labs: Hgb 11, stool pcr c diff pos several times REPT EGD/Cost Endoscopy Findings: esophagitis gastritis schatzki ring Colonoscopy Findings: diverticulosis colon polyps internal hemorrhoids path--TA removed, Stool testing: still pos for c diff gene but neg toxin, neg fecal lactoferrin Repet EGD/colo doen due to abn CT with possible sigmoid mass 11/28 Endoscopy Findings: small hiatal hernia esophagitis gastritis Colonoscopy Findings: diverticulosis non specific colitis, ?SCAD internal hemorrhoids she has tried and failed mesalamine PO and enemas, budesonide, multiple courses of ABx, lomotil bx with focal colitis, enteritis Saw ID and had zinplava, but felt no better INTERIM: ongoing issues as before with diarrhea, x 10-12 times a day nausea and vomiting every day she has ongoing left sided abdominal pain, she never got the PPI EXAM: GENERAL: The patient is well developed and nontoxic. VITAL SIGNS:see workflow HEENT: Nonicteric sclerae, PERRLA, EOMI. Oropharynx clear. Moist mucous membranes. Conjunctivae appear well perfused. No thyroid mass. CHEST: Chest wall is nontender. HEART: Regular rate and rhythm without murmurs. LUNGS: Clear to auscultation bilaterally. ABDOMEN: Soft, positive bowel sounds, tender mid abdomen, no organomegaly.no flank tenderness SKIN: No rash, no excessive bruising, petechiae, or purpura. NEUROLOGIC: Cranial nerves II-XII intact without motor/sensory deficit. 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 2/ gastritis Plan: 1/ trial of PPI 2/ trial of pred 40 mg, will go to 20 mg after 1 week depending on response 3/ check vitamins, and mineral levels PFSH Medical History Clostridioides difficile diarrhea Bleeding hemorrhoids Chronic abdominal pain Diverticular disease of colon Irritable bowel syndrome with diarrhea LLQ cramping Colitis Lower abdominal pain GERD (gastroesophageal reflux disease) Left lower quadrant pain Tubular adenoma of colon Sigmoid diverticulitis Acute diverticulitis Diarrhea Diverticulitis Abdominal pain GERD (gastroesophageal reflux disease) Chronic idiopathic constipation Constipation Surgical History History of intestinal surgery History of partial hysterectomy (~09/2006) Hx of hemorrhoidectomy Hx of colonoscopy History of esophagogastroduodenoscopy (EGD) Family History Father Cancer HTN (hypertension) Mother HTN (hypertension) Hyperthyroidism Migraine headache Maternal Grandmother History of breast cancer Paternal Grandmother History of breast cancer Family/Other Colon cancer Paternal Aunt Ovarian cancer Social History Household Members: Family and None Housing: Apartment Are you a primary healthcare architect to a significant other at home: No Do you presently have visiting nurse or other home services: No Alcohol intake: never Patient Tobacco Use Status: Never used Tobacco service: No Current occupational status: disabled Current occupational exposures/hazards: No Female Reproductive History Menstrual Age of Menarche: 7 Physical Exam Vital Signs: Last Vital Signs Pulse 81 04/28/24 14:17 BP 111/62 04/28/24 14:17 BMI result Body Mass Index 27.6 Assessment & Plan Assessment & Plan (1) Diarrhea: Code(s): R19.7 - Diarrhea, unspecified Category: Medical Plan: as above Orders: Orders Vitamin B12 and Folate Today R19.7 - Diarrhea, unspecified Vitamin B5 (Pantothenic Acid) Today R19.7 - Diarrhea, unspecified Vitamin E Today R19.7 - Diarrhea, unspecified Vitamin K1 Today R19.7 - Diarrhea, unspecified Zinc Today R19.7 - Diarrhea, unspecified Phosphorus Today E83.52 - Hypercalcemia, R19.7 - Diarrhea, unspecified Vitamin A Today R19.7 - Diarrhea, unspecified Vitamin B1 Today R19.7 - Diarrhea, unspecified Vitamin B3 (Niacin) Today R19.7 - Diarrhea, unspecified Vitamin B6 Today R19.7 - Diarrhea, unspecified Vitamin C Today R19.7 - Diarrhea, unspecified Vitamin D 25-OH Total Today R19.7 - Diarrhea, unspecified Ferritin Today R19.7 - Diarrhea, unspecified Magnesium Today R19.7 - Diarrhea, unspecified Medications: New omeprazole 40 mg PO DAILY 30 caps 2RF prednisone 40 mg (2 x 20 mg) PO DAILY 14 tabs 0RF Coding Level of Care Code Est Pt Level 3 (90234) Diagnoses Diarrhea R19.7
[2024-04-28 14:17] VITALS: BP 111/62; PULSE 81; BMI 27.6
== END 2024-04-28 16:25 | disposition home or self-care (01) ==
LOC: HO.HGI 13:37
PROVIDERS: PCP Nurse Practitioner Family; Visit Provider Internal Medicine Gastroenterology
DX: R19.7 Diarrhea, unspecified (principal)
CPT/HCPCS: 99213

== ENCOUNTER 2024-05-28 13:28 | Outpatient (AMB) | payer MEDICAID, SELFPAY ==
--- NOTE | 2024-05-28 13:44 | A.OFFVIS_ITS ---
Vital Signs 05/28/24 13:52 Height 5 ft 4 in Weight 160 lb BMI 27.5 BP 118/67 Blood Pressure Location Rt brachial Position Sitting Pulse 83 Intake Visit Reasons: hemorrhoids Intake Note: Patient referred by Dr. Sheehan for persistent hemorrhoids. Patient c/o: diarrhea, vomiting. Noticed blood when wiping after BM. Reports hx of hemorrhoidectomy 16yrs ago. Colonoscopy: 11-14-2023 Emergency Telecommunications Dispatcher Required: No Accompanied by: Self / Same As Patient Allergies Penicillins [PENICILLINS] Allergy (Intermediate, Verified 05/28/24 13:50) HIVES/SWELLING bupropion [From Wellbutrin] Allergy (Verified 05/28/24 13:50) hives, swelling HPI HPI hemorrhoids: Details: [age] year female here because of problematic hemorrhoids. I have been following her for this for several months now. She describes frequent bleeding with bowel movements describes bright blood per rectum. She says that hemo rrhoids often times he was swollen. She has associated pain with this. This has been going for about 3 years. She has had a long history of GI issues as well. She has had diverticulitis and C diff colitis in the past. She has chronic diarrhea as well as chronic abdominal pain. She has had multiple workups before with GI including capsule endoscopy because of her multiple GI issues She says she has frequent diarrhea and this irritates her hemorrhoids. She now wants to proceed with hemorrhoidectomy. [facility] Medical History Clostridioides difficile diarrhea Bleeding hemorrhoids Chronic abdominal pain Diverticular disease of colon Irritable bowel syndrome with diarrhea LLQ cramping Colitis Lower abdominal pain GERD (gastroesophageal reflux disease) Left lower quadrant pain Tubular adenoma of colon Sigmoid diverticulitis Acute diverticulitis Diarrhea Diverticulitis Abdominal pain GERD (gastroesophageal reflux disease) Chronic idiopathic constipation Constipation Surgical History History of intestinal surgery History of partial hysterectomy (~09/2006) Hx of hemorrhoidectomy Hx of colonoscopy History of esophagogastroduodenoscopy (EGD) Family History Father Cancer HTN (hypertension) Mother HTN (hypertension) Hyperthyroidism Migraine headache Maternal Grandmother History of breast cancer Paternal Grandmother History of breast cancer Family/Other Colon cancer Paternal Aunt Ovarian cancer Social History Household Members: Family and None Housing: Apartment Are you a primary overnight caregiver to a significant other at home: No Do you presently have visiting nurse or other home services: No Alcohol intake: never Patient Tobacco Use Status: Never used Tobacco service: No Current occupational status: disabled Current occupational exposures/hazards: No Female Reproductive History Menstrual Age of Menarche: 7 Review of Systems Const Denies chills and Denies fever(s) Card Denies chest pain, Denies dyspnea and Denies dyspnea on exertion Resp Denies cough, Denies dyspnea and Denies dyspnea on exertion GI Reports hematochezia and Denies change in bowel habits Denies hematuria Musc Denies back pain and Denies limited range of motion Neuro Denies focal weakness and Denies convulsions Psych Denies depression and Denies mood swings Physical Exam Const General: comfortable and no acute distress Orientation/consciousness: patient oriented x3 Neck Neck: Yes no lymphadenopathy Resp Auscultation: clear to auscultation bilaterally Cardio Rhythm: regular rhythm GI Other: Rectal exam shows large external hemorrhoids posteriorly with prolapse of the internal component Palpation (GI): Soft to palpation, nontender and no guarding Neuro General: patient oriented x3 Office Procedures Anoscopy She was in healing noel-knife position. The anoscope was gently inserted. A full examination of the anal canal was done. She had a mixed large internal external hemorrhoidal column which appears to be on the left posterior. There were no other lesions. There was no fissure or ulceration. There was no induration on digital exam. There was no bleeding. [id number] Assessment & Plan Assessment & Plan (1) Bleeding hemorrhoids: Code(s): K64.9 - Unspecified hemorrhoids Category: Medical Plan: She has had a long history of bleeding, swelling, pain and discomfort with her hemorrhoids. She now wants to proceed with hemorrhoidectomy. I did explain to her that her hemorrhoid symptoms are aggravated because of her diarrhea. She says that she is aware of this but states that she really wants to proceed with hemorrhoidectomy this time because of her symptoms I explained the technique of hemorrhoidectomy. I reviewed the risks including but not limited to bleeding, infections, poor healing, as well as the benefits and alternatives. I told her that we may not be able to remove all large hemorrhoidal columns in 1 setting She understands. I also explained to her what to expect postoperatively. I also emphasized to her the importance of following up with her cream buyer because of her chronic diarrhea. She was told that she may have Crohn's disease. Coding Level of Care Code Est Pt Level 3 (60833) Diagnoses Bleeding hemorrhoids K64.9 CPT Codes Details - CPT: 61698-[id number] ([id number])
[2024-05-28 13:52] VITALS: BP 118/67; PULSE 83; BMI 27.5
--- OUTSIDE RECORDS SUMMARY | 2024-05-28 15:57 | XMS_ITS | Encounter Summary ---
Author Organization [employer] Address [address] [place] [address] [address] [place] [address] Care Team Providers Care Digital Marketing Associate Name Role Phone Vidhya Padilla Primary Care Provider [phone] Name, Les GARCIA Primary Care Provider [phone] Reason for Visit * Reason Comments Med Change Request Encounter Details Date Type Department Care Team (Late st Contact Info) Description 08/02/2022 Refill [facility] [address] [place] [address] Vidhya Padilla FNP [address] [place] [address] Social History Tobacco Use Types Packs/Day Years [...] Care Team (Late st Contact Info) Description 07/09/2024 2:30 PM EDT Office Visit [facility] [address] [place], [place] [id number] BrockLakshmi gale, OD [address] [place] [address] documented as of this encounter Visit Diagnoses Not on filedocumented in this encounter Additional Health Concerns Assessment Noted Time PHQ-9 Depression Total Score: 18 023 9:14 AM EDT documented as of this encounter Care Teams Digital Marketing Associate Relationship Specialty Start Date End Date Vidhya Padilla FNP [address] [place] [address] PCP - General Family Medicine 02/07/22 10/08/23 Name, MD Les [address] [place] [address] PCP - General Internal Medicine 10/09/23 documented as of this encounter
--- OUTSIDE RECORDS SUMMARY | 2024-05-28 15:57 | XMS_ITS | Encounter Summary ---
Author Organization [facility] Address [address] [place] [address] Care Team Providers Care Art Psychotherapist Or Therapist Name Role Phone Vidhya Padilla NP Primary Care Provider [phone] Encounter Details Date Type Department Care Team (Late Contact Info) Description 11/08/2020 Orders Only [facility] [address] [place] [address] Santy Madison MD [address] [place] [address] Social History Tobacco Use Types Packs/Day Years [...] Department Care Team (Late Contact Info) Description 06/25/2024 8:00 AM EDT Appointment [facility] Neurodiagnostics [address] [place] [address] Giovany Machado MD [address] [place] [address] Rafaela Beck 07/03/2024 9:00 AM EDT Office Visit [facility] Neurology [address] [place] [address] Mary Maria MD [address] [place] [address] documented as of this encounter Visit Diagnoses Not on filedocumented in this encounter Additional Health Concerns Infection Onset Date Last Indicated Resolved Time R/O C.diff 08/25/2022 08/25/2022 08/25/2022 3:19 PM EDT R/O C.diff 09/06/2022 09/06/2022 09/06/2022 12:3 1 PM EDT R/O C.diff 10/03/2022 10/03/2022 10/04/2022 4:31 AM EDT documented as of this encounter Care Teams Art Psychotherapist Or Therapist Relationship Specialty Start Date End Date Vidhya Padilla NP [address] [place] [address] PCP - General Family Medicine 07/27/22 documented as of this encounter
--- OUTSIDE RECORDS SUMMARY | 2024-05-28 15:57 | XMS_ITS | Encounter Summary ---
Author Organization [employer] Address [address] [place] [address] [address] [place] [address] Care Team Providers Care Systems Mgr Name Role Phone Vidhya Padilla Primary Care Provider [phone] NameLes MD Primary Care Provider [phone] Encounter Details Date Type Department Care Team (Late Contact Info) Description 03/21/2022 Orders Only [facility] [address] [place] [address] Vidhya Padilla FNP [address] [place] [address] Sigmoid diverticulitis (Primary Dx) Social History Tobacco [...] Department Care Team (Late Contact Info) Description 07/09/2024 2:30 PM EDT Office Visit [facility] [address] [place] [address] Lakshmi Gutiérrez, OD [address] [place] [address] documented as of this encounter Visit Diagnoses Diagnosis Sigmoid diverticulitis- Primary Diverticulitis of colon (without mention of hemorrhage) documented in this encounter Care Teams Systems Mgr Relationship Specialty Start Date End Date Vidhya Padilla FNP [address] [place] [address] PCP - General Family Medicine 02/07/22 10/08/23 Name, MD Les [address] [place] [address] PCP - General Internal Medicine 10/09/23 documented as of this encounter
--- OUTSIDE RECORDS SUMMARY | 2024-05-28 15:57 | XMS_ITS | Encounter Summary ---
Author Organization [employer] Address [address] [place] [address] [address] [place] [address] Care Team Providers Care Mobile Home Mechanic Name Role Phone Vidhya Padilla Primary Care Provider [phone] Name, Les GARCIA Primary Care Provider [phone] Reason for Visit * Reason Onset Date Comments Referral 03/01/2022 Encounter Details Date Type Department Care Team (Late st Contact Info) Description 03/01/2022 Telephone [facility] [address] [place] [address] Vidhya Padilla FNP [address] [place], [place] [phone] Referral Social History Tobacco Use Types Packs/Day [...] 03/01/2022 2:52 PM EST Telephone call to [facility] in regards to pt's referral. Pt needs referral for cyst in kidney andabdominal pain per [facility]. N28.1 and R10.9 respectively. * Telephone Encounter - Nolan Carlisle - 03/01/2022 9:03 AM EST Tc from pt requesting a referral to [facility]. Pt states she received a call and she was advised to request a referral do to something in her Left Kidney. Riveting Machine Operator Automatic was attempting togather details, pt was unable to provide details. 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
--- OUTSIDE RECORDS SUMMARY | 2024-05-28 15:57 | XMS_ITS | Encounter Summary ---
Author Organization [facility] Address [address] [place] [address] Care Team Providers Care Steeping Press Tender Name Role Phone Vidhya Padilla AIRLINE MANAGERIAL SUPERVISOR Primary Care Provider [phone] Reason for Visit * Reason Onset Date Comments PAC Appt Request - New 07/27/2022 Encounter Details Date Type Department Care Team ([facility] Contact Info) Description 07/27/2022 Telephone [facility] [address] [place] [phone] Telephone Intake, Staff PAC Appt Request - [...] available is February, please call patient with job order clerk to schedule appt. documented in this encounter Plan of Treatment Upcoming Encounters Date Type Department Care Team (Late st Contact Info) Description 06/25/2024 8:00 AM EDT Appointment [facility] Neurodiagnostics [address] [place] [address] Giovany Machado MD [address] [place] [address] Rafaela Beck 07/03/2024 9:00 AM EDT Office Visit [facility] Neurology [address] [place] [address] Mary Maria MD [address] [place] [address] documented as of this encounter Visit Diagnoses Not on filedocumented in this encounter Additional Health Concerns Infection Onset Date Last Indicated Resolved Time R/O C.diff 08/25/2022 08/25/2022 08/25/2022 3:19 PM EDT R/O C.diff 09/06/2022 09/06/2022 09/06/2022 12:3 1 PM EDT R/O C.diff 10/03/2022 10/03/2022 10/04/2022 4:31 AM EDT documented as of this encounter Care Teams Steeping Press Tender Relationship Specialty Start Date End Date Vidhya Padilla NP [address] [place] [address] PCP - General Family Medicine 07/27/22 documented as of this encounter
--- OUTSIDE RECORDS SUMMARY | 2024-05-28 15:57 | XMS_ITS | Referral Summary ---
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 [...] Take 1 tablet daily 30 tablet 06/29/19 24 Active riboflavin (VITAMIN B2) 100 mg tablet Take 4 tablets once a day 120 tablet 06/29/19 24 Active galcanezumab- gnlm (Emgality Pen) 120 mg/mL pen injectorIndic ations:Intrac table persistent migraine aura without cerebral infarction and without status migrainosus,D izziness,Musc le tension headache INJECT 120 MG SUBCUTANEOUS [...] Info) Description 06/25/2024 8:00 AM EDT Appointment [facility] [address] [place] [address] [phone] Giovany Machado MD [address] [place] [address] Rafaela Beck 07/03/2024 9:00 AM EDT Office Visit [facility] [address] [place] [address] Mary Maria MD [address] [place] [address] [place] [id number] Care Teams Remote Recruiter Relationship Specialty Start Date End Date Vidhya Padilla NP [address] [place] [address] PCP - General Family Medicine 07/27/22
--- OUTSIDE RECORDS SUMMARY | 2024-05-28 15:57 | XMS_ITS | Encounter Summary ---
Author Organization [employer] Address [address] [place] [address] [address] [address] Care Team Providers Care Internal Grinder Name Role Phone Vidhya Padilla Primary Care Provider [phone] Name, Les GARCIA Primary Care Provider [phone] Encounter Details Date Type Department Care Team (Late Contact Info) Description 07/20/2022 Abstract [facility] MEDICINE [address] [place] [address] Vidhya Padilla FNP [address] [place] [address] Social History Tobacco Use Types Packs/Day Years [...] Description 07/09/2024 2:30 PM EDT Office Visit [facility] OPTOMETRY [address] [place] [address] Lakshmi Gutiérrez, OD [address] [place] [address] documented as of this encounter Procedures Procedure Name Priority Date/Time Associated Diagnosis Comments COLONOSCOPY Routine 05/10/2022 8:39 AM EDT documented in this encounter Results * Colonoscopy (05/10/2022 8:39 AM EDT) Colonoscopy Normal Normal Narrative Shanice Perez - 05/10/2022 8:39 AM EDT [place]commended 3 [place] [place] Historical Provider [facility] [place] Edited Result - Final documented in this encounter Visit Diagnoses Not on filedocumented in this encounter Additional Health Concerns Assessment Noted Time PHQ-9 Depression Total Score: 18 023 9:14 AM EDT documented as of this encounter Care Teams Internal Grinder Relationship Specialty Start Date End Date Vidhya Padilla FNP [address] [place] [address] PCP - General Family Medicine 02/07/22 10/08/23 Les Torres MD [address] [place] [address] PCP - General Internal Medicine 10/09/23 documented as of this encounter
--- OUTSIDE RECORDS SUMMARY | 2024-05-28 15:57 | XMS_ITS | Encounter Summary ---
Author Organization [employer] Address [address] [place] [address] [address], [place] [address] Care Team Providers Care Tutoring Assistant Name Role Phone Claribel Grissom MD Primary Care Provider Vidhya Parker COMMERCIAL MANAGEMENT ACCOUNTANT Primary Care Provider [phone] Name, Les GARCIA Primary Care Provider [phone] Encounter Details Date Type Department Care Team ([facility] Contact Info) Description 01/25/2022 Telephone [facility] MEDICINE [address] [place] [address] Claribel Grissom MD Social History Tobacco Use [...] Upcoming Encounters Date Type Department Care Team ([facility] Contact Info) Description 07/09/2024 2:30 PM EDT Office Visit [facility] OPTOMETRY [address] [place] [address] Lakshmi Gutiérrez OD [address] [place] [address] documented as of this encounter Visit Diagnoses Not on filedocumented in this encounter Care Teams Tutoring Assistant Relationship Specialty Start Date End Date Claribel Grissom MD PCP - General Family Medicine 12/09/18 02/06/22 Vidhya Padilla FNP [address] [place], [place] [phone] PCP - General Family Medicine 02/07/22 10/08/23 Les Torres MD [address] [place] [address] PCP - General Internal Medicine 10/09/23 documented as of this encounter
--- OUTSIDE RECORDS SUMMARY | 2024-05-28 15:57 | XMS_ITS | Encounter Summary ---
Author Organization [employer] Address [address] [facility] [address] [place] [address] Care Team Providers Care Manager Intermediate Name Role Phone Vidhya Padilla Primary Care Provider [phone] Name, Les GARCIA Primary Care Provider [phone] Encounter Details Date Type Department Care Team ([facility] st Contact Info) Description 01/10/2023 Telephone [facility] MEDICINE [address] [place] [address] Vidhya Padilla FNP [address] [place] [address] Social History Tobacco Use Types Packs/Day Years [...] T/C to pt. For below message through [employer] id - [id number], pt. States she was treated for this [...] well. Dr. Veliz may be reached at [phone]. Please follow with . documented in this encounter Plan of Treatment Upcoming Encounters Date Type Department Care Team (Late st Contact Info) Description 07/09/2024 2:30 PM EDT Office Visit [facility] OPTOMETRY [address] [place] [address] Brock, Lakshmi, OD [address] [place] [address] documented as of this encounter Visit Diagnoses Not on filedocumented in this encounter Additional Health Concerns Assessment Noted Time PHQ-9 Depression Total Score: 18 023 9:14 AM EDT documented as of this encounter Care Teams Manager Intermediate Relationship Specialty Start Date End Date Vidhya Padilla FNP [address] [place] [address] PCP - General Family Medicine 02/07/22 10/08/23 Melissa, MD Les [address] [place] [address] PCP - General Internal Medicine 10/09/23 documented as of this encounter
--- OUTSIDE RECORDS SUMMARY | 2024-05-28 15:57 | XMS_ITS | Clinical Summary ---
Author Organization [facility] Address [address] [place] [address] Care Team Providers Care Pipe And Boiler Covers Supervisor Name Role Phone Melyssa Alonso MD Primary Care Provider Allergies Active Allergy Reactions Criticality Noted Date [...] Smear 1980 DTaP/Tdap/Td (1 - Tdap) 1982 Mammogram/Breast Imaging 2004 Colon Cancer Screening 2009 Pneumococcal 50+ years (1 of 1 - PCV) 2014 Zoster (Shingrix) (1 of 2) 2014 COVID-19 Vaccine (3 - season) 2023 06/16/2020, 2020 Influenza (#1) 2023 12/27/2018, 10/07, 11/28/2016, Additional history exists RSV (1 - 1-dose 75+ series) 05/20/2039 Tonometry Discontinued 12/03/2020, 07/15/2020 Eye/Retina Exam Discontinued 02/16/2021, 02/05, 02/16/2021, Additional history exists HPV Vaccine Aged Out No longer eligi ble based on patient's age to complete this topic Hep A Aged Out No longer eligi ble based on patient's age to complete this topic Hep B Aged Out No longer eligi ble based on patient's age to complete this topic Hib Aged Out No longer eligi ble based on patient's age to complete this topic Meningococcal ACWY Aged Out No longer eligible based on patient's age to complete this topic Zoster (Zostavax) Discontinued Procedures * Due to [place] [employer] law, this organization might not be sharing negative HIV tests. Procedure Name Priority Date/Time Associated Diagnosis Comments COMPREHENSIVE EYE EXAM 07/15/2020 from Last 3 Months or Most Recently Relevant to Health Maintenance Results * Due to [facility] law, this organization might not be sharing negative HIV tests. * COMPREHENSIVE EYE EXAM (07/15/2020) Fawad VALENCIA PROCEDURE Final Result from Last 3 Months or Most Recently Relevant to Health Maintenance Insurance MEDICAID MEDICAID Care Teams Pipe And Boiler Covers Supervisor Relationship Specialty Start Date End Date Melyssa Alonso MD [address] [address] PCP - General Internal Medicine 07/15/20
--- OUTSIDE RECORDS SUMMARY | 2024-05-28 15:57 | XMS_ITS | Encounter Summary ---
Author Organization [facility] Address [address] [place] [address] Care Team Providers Care International Marketing Specialist Name Role Phone Melyssa Alonso MD Primary Care Provider Encounter Details Date Type Department Care Team (Late st Contact Info) Description 01/10/2021 Orders Only [facility] [address] [place] [phone] Rehan Gerard, RN [address] [place] [phone] Medications Social History Tobacco Use Types Packs/Day [...] on filedocumented in this encounter Care Teams International Marketing Specialist Relationship Specialty Start Date End Date Melyssa Alonso MD [facility] [address] [place] [address] PCP - General Internal Medicine 07/15/20 documented as of this encounter
--- OUTSIDE RECORDS SUMMARY | 2024-05-28 15:57 | XMS_ITS | Clinical Summary ---
Author Organization [employer] Address [address] [facility] 7[address] [place] [address] Care Team Providers Care Glass Cutter Helper Name Role Phone Name, Les GARCIA Primary Care Provider [phone] Allergies Active Allergy Reactions Criticality Noted Date [...] Encounters Date Type Department Care Team Description 04/28/2024 Orders Only GENERIC EXTERNAL DATA DEPARTMENT Provider, Generic External Data 04/18/2024 Population Health Risk Score Community Care [facility] (C3) Department [address] [phone] Provider, Population Health Generic 03/10/2024 Orders Only [facility] [address] [place] [address] Vidhya Padilla FNP from Last 3 Months Immunizations Name Administration [...] 12/25/2022 1:08 PM EST Plan of Treatment Upcoming Encounters Date Type Department Care Team (Late st Contact Info) Description 07/09/2024 2:30 PM EDT Office Visit [facility] [address] [place] [address] Brock, Lakshmi, OD [address] [place] [address] Health Maintenance Due Date Last Done Comments CT Colonography 1964 FIT DNA/Cologuard 1964 FIT 1965 FOBT 1965 HIV Screening 1965 Sigmoidoscopy 1964 Alcohol/Substance Use Screening 1976 Pap Smear 1985 Cervical Cancer Screening 1994 HPV/Cotest 1994 Pneumococcal Vaccine: 50+ Years (1 of 1 - PCV) 2014 Depression Screening 06/01/2023 05/31/2022, 06/01/19 23 SDOH Screening 06/01/2023 05/31/2022 COVID-19 Vaccine (5 - 2024-25 season) 2023 12/16/2021, 12/29/2020, 06/16/2020, Additional history exists Influenza Vaccine (#1) 2023 , 11/17/2021, 12/29/2020, Additional history exists Tobacco Screening 03/25/2025 03/25/2024 Colonoscopy 05/10/2025 05/10/2022 Colorectal Cancer Screening 05/10/2025 Mammogram 03/10/2026 03/10/2024, 01/06, 01/06/2020, Additional history exists Lipid Panel 08/05/2026 08/05/2021 DTaP/Tdap/Td Vaccines (3 [...] patient's age to complete this topic Hepatitis B Vaccines Aged Out No long er eligible [...] Procedure Name Priority Date/Time Associated Diagnosis Comments VITAMIN B1 Routine 04/28/2024 3:45 PM EDT VITAMIN K1 Routine 04/28/2024 3:45 PM EDT VITAMIN B5 (PANTOTHENIC ACID) Routine 04/28/2024 3:45 PM EDT VITAMIN B3 Routine 04/28/2024 3:45 PM EDT VITAMIN B6 Routine 04/28/2024 3:45 PM EDT VITAMIN C Routine 04/28/2024 3:45 PM EDT ZINC Routine 04/28/2024 3:45 PM EDT VITAMIN E (TOCOPHEROL) Routine 3:45 PM EDT VITAMIN A Routine 04/28/2024 3:45 PM EDT VITAMIN B12/FOLATE, SERUM PANEL Routine 04/28/2024 3:45 PM EDT VITAMIN D,25-OH,TOTAL,IA Routine 04/28/2024 3:45 PM EDT FERRITIN Routine 04/28/2024 3:45 PM EDT MAGNESIUM Routine 04/28/2024 3:45 PM EDT PHOSPHATE ( PHOSPHORUS) Routine 04/28/2024 3:45 PM EDT BI MAMMOGRAM SCREENING TOMOSYNTHESIS BILATERAL Routine 03/10/2024 12:48 PM EST HEPATITIS PANEL, GENERAL Routine 03/14/2023 10:20 AM EST HM COLONOSCOPY Routine 05/10/2022 8:39 AM EDT LIPID PANEL, STANDARD Routine 08/05/2021 9:50 AM EDT from Last 3 Months or Most Recently Relevant to Health Maintenance Results * Vitamin B5 (Pantothenic Acid) (04/28/2024 3:45 PM EDT) Vitamin B5 (Pantothenic Acid) 41 <275 ng/mL [facility] Comment:This test was thomas iraheta and its analyticalperformance characteristics have been determinedby [facility] [place], [place].It has not been cleared or approved by the FDA. Thisassay has been validated pursuant to the CLIAregulations and is used for clinical purposes.THIS TEST WAS PERFORMED AT:[employer] [id number] [place] [id number] HOWARD MD,PHD 04/28/2024 3:45 PM EDT 04/28/2024 3:45 PM EDT Generic External Data Provider LAB BLOOD ORDERAB LES Final Result Performing Organization Address [facility] Co de Phone Number [facility] [address] [place] [phone] [phone] * Vitamin K1 (04/28/2024 3:45 PM EDT) Vitamin K1 821 130 - 1500 pg/mL [facility] Comment:This test was develo ped and its analytical performancecharacteristics have been determined by [employer] [place], [place]. It hasnot been cleared or approved by the U.S. Food and DrugAdministration. This assay has been validated pursuantto the CLIA regulations and is used for clinicalpurposes.THIS TEST WAS PERFORMED AT:[employer] [id number] [place] [address]TTLHLHUIZZY HOWARD MD,PHD 04/28/2024 3:45 PM EDT 04/28/2024 3:45 PM EDT Generic External Data Provider LAB BLOOD ORDERAB LES Final Result Performing Organization Address [facility] Co de Phone Number [facility] [address] [place] [phone] * (ABNORMAL) Vitamin D, 25-Hydroxy, Total, Immunoassay (04/28/2024 3:45 PM EDT) Vitamin D 25-OH Total 19.1(L) >30 ng/mL [facility] Comment: Health Based Reference Values*< 20 ??ng/mL ??Awsruodzg28-99 ng/mL ??Insufficient> 30 ??ng/mL ??Sufficient*Hermilo DIAZ. N Engl J Med. 2007;357:266-280There is no well-established upper level of normal vitamin Dlevels. Some laboratories use 50 ng/mL as an upper limit ofnormal. However, toxicity is patient-dependent and may occurat any level. Careful correlation with the patient'spresentation is necessary and, if there is concern forvitamin D toxicity, treatment should be consideredirrespective of the serum level.Care must be taken in interpreting Vitamin D results fromdifferent laboratories and methodologies. ??Published datademonstrated that results from patients undergoinghemodialysis may show a negative bias when tested withvarious automated 25-OH vitamin D assays when compared toLC- MS/MS.When testing samples from patients whose predominant form ofVitamin D is Vitamin D2, such as patients receiving VitaminD2 supplementation, results that are subtherapeutic shouldbe confirmed with another method such as LC-MS/MS. 04/28/2024 3:45 PM EDT 04/28/2024 3:45 PM EDT us Generic External Data Provider LAB BLOOD ORDERAB LES Final Result [facility] [address] [place] [phone] * Vitamin B12 (Cobalamin) and Folate Panel, Serum (04/28/2024 3:45 PM EDT) Vitamin B12 277 200 - 900 pg/mL [facility] Comment:NORMAL 200-900 PG/ML INDETERMINATE 160-199 PG/ML DEFICIENT < 160 PG/ML Folate 12.1 > or = 4.0 ng/mL [facility] Comment:Reference Values:> o r = 4.0 ng/mL< 4.0 ng/mL suggests folate deficiency Methotrexate, aminopterin and folinic acid(leucovorin) are chemotherapeutic agents whose molecularstructures are similar to folate; therefore, the Architectfolate assay cannot be used for patients using these drugs. 04/28/2024 3:45 PM EDT 04/28/2024 3:45 PM EDT Generic External Data Provider LAB BLOOD ORDERAB LES Final Result Performing Organization Address [facility] Co de Phone Number [facility] [address] [place] [phone] * Zinc (04/28/2024 3:45 PM EDT) Zinc 69 60 - 130 mcg/dL [facility] Comment:This test was develo ped and its analytical performancecharacteristics have been determined by [place]. It hasnot been cleared or approved by the .S. Food and DrugAdministration. This assay has been validated pursuantto the CLIA regulations and is used for clinicalpurposes.THIS TEST WAS PERFORMED AT:[id number] [place] [id number] HOWARD MD,PHD 04/28/2024 3:45 PM EDT 04/28/2024 3:45 PM EDT [facility] External Data Provider LAB BLOOD ORDERAB LES Final Result Performing Organization Address [facility] de Phone Number [facility] [address] [place] [phone] * Vitamin A (04/28/2024 3:45 PM EDT) Vitamin A (Retinol) 43 38 - 98 mcg/dL [facility] Comment:Vitamin supplementat ion within 24 hours prior toblood draw may affect the accuracy of the results.This test was developed and its analytical performancecharacteristics have been determined by [place]. It hasnot been cleared or approved by the U.S. Food and DrugAdministration. This assay has been validated pursuantto the CLIA regulations and is used for clinicalpurposes.THIS TEST WAS PERFORMED AT:[employer] [place] [address]GAHXWMBIZZY HOWARD MD,PHD 04/28/2024 3:45 PM EDT 04/28/2024 3:45 PM EDT us Generic External Data Provider LAB BLOOD ORDERAB LES Final Result [facility] [address] [place] [phone] * Vitamin B3 (Niacin and Metabolite) (04/28/2024 3:45 PM EDT) Nicotinic Acid <20 see note ng/mL [facility] Comment:Due to the large elida iability in the metabolism ofnicotinic acid, the dosing preparation used (immediate-release vs. extended release), and the mg doses usedthe serum concentrations may range from less than20 ng/mL to about 30,000 ng/mL.After oral administration of an immediate-releasetablet, peak plasma concentrations occur in 4 to 5hours. The plasma half-life of nicotinic acid is aboutone hour. In one study, fasting plasma concentrationswere reported to be less than 20 ng/mL. In anotherstudy, it was reported that the administration of asingle 1000 mg extended-release tablet resulted in meannicotinic acid concentrations of less than 50 ng/mL.This test was developed and its analyticalperformance characteristics have been determinedby [employer] [facility], [place], [place].It has not been cleared or approved by the FDA. Thisassay has been validated pursuant to the CLIAregulations and is used for clinical purposes. Nicotinamide <20 see note ng/mL [facility] Comment:Nicotinamide is a me tabolite of nicotinic acid. Due tothe large variability in the metabolism of nicotinicacid, plasma concentrations of this metabolite arevariable. In one study, fasting plasma concentrationswere reported to be approximately 40 ng/mL. In anotherstudy it was reported that the administration of asingle 1000 mg of extended-release tablet of nicotinicacid resulted in a mean peak nicotinamide concentrationof 400 ng/mL between 5 and 10 hours post dose,decreasing to about 100 ng/mL by 16 hours post dose.This test was developed and its analyticalperformance characteristics have been determinedby [place].It has not been cleared or approved by the FDA. Thisassay has been validated pursuant to the CLIAregulations and is used for clinical purposes.THIS TEST WAS PERFORMED AT:[employer] [id number] [place] [id number] HOWARD MD,PHD 04/28/2024 3:45 PM EDT 04/28/2024 3:45 PM EDT Generic External Data Provider LAB BLOOD ORDERAB LES Final Result Performing Organization Address [facility] Number [facility] [address] [place] [phone] * Vitamin C (04/28/2024 3:45 PM EDT) [facility] Vitamin C 0.7 0.3 - 2.7 mg/dL [facility] Comment:This test was develo ped and its analyticalperformance characteristics have been determinedby [place].It has not been cleared or approved by the FDA. Thisassay has been validated pursuant to the CLIAregulations and is used for clinical purposes.THIS TEST WAS PERFORMED AT:[employer] [id number] [place] [id number] HOWARD MD,PHD 04/28/2024 3:45 PM EDT 04/28/2024 3:45 PM EDT Generic External Data Provider LAB BLOOD ORDERAB LES Final Result Performing Organization Address [facility] Co de Phone Number [facility] [address] [place] [phone] * Vitamin E (Tocopherol) (04/28/2024 3:45 PM EDT) Vitamin E, Alpha-Tocopherol 16.4 5.7 - 19.9 mg/L [facility] Comment:Levels of alpha-toco pherol <5 mg/L are consistentwith Vitamin E deficiency in adults. Vitamin E, Jebd-Xctew-Klnqfnodqn 1.3 <=4.3 mg/L [facility] Comment:Vitamin supplementat ion within 24 hours prior toblood draw may affect the accuracy of the results.This test was developed and its analytical performancecharacteristics have been determined by [employer]. It hasnot been cleared or approved by the U.S. Food and DrugAdministration. This assay has been validated pursuantto the CLIA regulations and is used for clinicalpurposes.THIS TEST WAS PERFORMED AT:[employer] [address] [address]XOVRYWXIZZY HOWARD MD,PHD 04/28/2024 3:45 PM EDT 04/28/2024 3:45 PM EDT us Generic External Data Provider LAB BLOOD ORDERAB LES Final Result [facility] [address] [place] [phone] * Vitamin B1 (04/28/2024 3:45 PM EDT) Pathologist [facility] [place] Vitamin B1 10 8 - 30 nmol/L [facility] Comment:Vitamin supplementat ion within 24 hours prior toblood draw may affect the accuracy of the results.This test was developed and its analytical performancecharacteristics have been determined by [employer]. It hasnot been cleared or approved by the U.S. Food and DrugAdministration. This assay has been validated pursuantto the CLIA regulations and is used for clinicalpurposes.THIS TEST WAS PERFORMED AT:[id number] [place] [address]SZDYMHVIZZY HOWARD MD,PHD 04/28/2024 3:45 PM EDT 04/28/2024 3:45 PM EDT us Generic External Data Provider LAB BLOOD ORDERAB LES Final Result Performing Organization Address [facility] Co de Phone Number [facility] [address] [place] [phone] * Vitamin B6, Plasma (04/28/2024 3:45 PM EDT) Vitamin B6 18.6 2.1 - 21.7 ng/mL [facility] Comment:Vitamin supplementat ion within 24 hours prior toblood draw may affect the accuracy of the results.This test was developed and its analytical performancecharacteristics have been determined by [employer] [place], [place]. It hasnot been cleared or approved by the U.S. Food and DrugAdministration. This assay has been validated pursuantto the CLIA regulations and is used for clinicalpurposes.THIS TEST WAS PERFORMED AT:[id number] [place] [address]RTGSCSJZIZY HOWARD MD,PHD 04/28/2024 3:45 PM EDT 04/28/2024 3:45 PM EDT Generic External Data Provider LAB BLOOD ORDERAB LES Final Result Performing Organization Address [facility] Co de Phone Number [facility] [address] [place] [phone] * Phosphate (As Phosphorus) (04/28/2024 3:45 PM EDT) Phosphorus 3.9 2.7 - 4.5 mg/dL [facility] 04/28/2024 3:45 PM EDT 04/28/2024 3:45 PM EDT Generic External Data Provider LAB BLOOD ORDERAB LES Final Result Performing Organization Address [facility] de Phone Number [facility] [address] [place] [phone] * Magnesium (04/28/2024 3:45 PM EDT) Magnesium 2.1 1.6 - 2.6 mg/dL [facility] 04/28/2024 3:45 PM EDT 04/28/2024 3:45 PM EDT Generic External Data Provider LAB BLOOD ORDERAB LES Final Result Performing Organization Address [facility] de Phone Number [facility] [address] [place] [phone] * Ferritin (04/28/2024 3:45 PM EDT) Ferritin 41 10 - 250 ng/mL [facility] 04/28/2024 3:45 PM EDT 04/28/2024 3:45 PM EDT Generic External Data Provider LAB BLOOD ORDERAB LES Final Result Performing Organization Address [facility] de Phone Number [facility] [address] [place] [phone] * BI Mammogram Screening Tomosynthesis Bilateral (03/10/2024 12:48 PM EST) Anatomical Region Laterality Modality Breast Bilateral Mammography 03/10/2024 12:4 8 PM EST Narrative 03/16/2024 5:47 PM EST ? [facility] [place] ? [address] ?[place] [address] ? Mammography Report ? Signed ? Patient: Merritt,Kacy ?MR#: [id number] ?? 9 ? : 1965 ?Acct:[id number] ? Age/Sex: 58 / F ?ADM Date: 02/03/25 ? Loc: HO.MAMMO ? Attending Dr: Vidhya Padilla BOARD CERTIFIED BEHAVIORAL ANALYST ? Ordering Physician: Vidhya Padilla BOARD CERTIFIED BEHAVIORAL ANALYST ?Results: 1Negativ ?? e ? Date of Service: 03/10/24 ?Follow Up: 1 Year From Orig ?? inal Mammogram ? Procedure(s): MM tomosynthesis screening BI ?? Accession Number(s): [id number] ? cc: Vidhya Padilla BOARD CERTIFIED BEHAVIORAL ANALYST ? EXAMINATION: ?? MM SCREENING DIGITAL BREAST TOMOSYNTHESIS, BILATERAL ? CLINICAL INFORMATION: ? Screening. Asymptomatic. ? COMPARISON: ?? Mammography: Comparison is made with available priors ? TECHNIQUE: ?? Digital breast mammography with tomosynthesis is performed in both the ?? craniocaudal and mediolateral oblique views along with computer-aided ?? detection (CAD). ? FINDINGS: ?? There are scattered areas of fibroglandular density (ACR BI-RADS breast ?? composition Category b). ? There are no significant masses, abnormal calcifications, or other ?? abnormalities. ? MM/MM tomosynthesis screening BI ?? IMPRESSION: ?? No mammographic evidence of malignancy. ? ASSESSMENT: ? BI-RADS BI-RADS 1 - Negative ? RECOMMENDATION: ?? Routine annual mammography screening. ? 1 year F/U ? This examination should not preclude the clinical evaluation of a ?? suspicious palpable abnormality. ? This patient's information was entered into a reminder system with a ?? target due date for their next mammogram. ? Electronically signed by: ??Daiana Segal DO ??03/16/2024 05:44 PM EST ?? RP ? Dictated By: ?Daiana Segal DO ? Signed By: ?<Electronically signed by Daiana Segal, DO in OV> ? 03/16/24 1744 ? DD/ 1248 ? TD/TT: 03/10/24 1308 ? Gas Pipe Layer: ? Procedure Note Donelida, Image - 03/16/2024 [place] [facility] [address] [place] [address] Mammography Report Signed Patient: Meghan Merritt#: [id number] 9 : 1965Acct:[id number] Age/Sex: 58 / FADM Date: 03/10/24 Loc: HO.MAMMO Attending Dr: Vidhya Padilla BOARD CERTIFIED BEHAVIORAL ANALYST Ordering Physician: Vidhya Padilla NPResults: 1Negativ e Date of Service: 03/10/24Follow Up: 1 Year From Orig inal Mammogram Procedure(s): MM tomosynthesis screening BI Accession Number(s): [id number] cc: Vidhya Padilla NP EXAMINATION: MM SCREENING DIGITAL BREAST TOMOSYNTHESIS, BILATERAL CLINICAL INFORMATION: Screening. Asymptomatic. COMPARISON: Mammography: Comparison is made with available priors TECHNIQUE: Digital breast mammography with tomosynthesis is performed in both the craniocaudal and mediolateral oblique views along with computer-aided detection (CAD). FINDINGS: There are scattered areas of fibroglandular density (ACR BI-RADS breast composition Category b). There are no significant masses, abnormal calcifications, or other abnormalities. MM/MM tomosynthesis screening BI IMPRESSION: No mammographic evidence of malignancy. ASSESSMENT: BI-RADS BI-RADS 1 - Negative RECOMMENDATION: Routine annual mammography screening. 1 year F/U This examination should not preclude the clinical evaluation of a suspicious palpable abnormality. This patient's information was entered into a reminder system with a target due date for their next mammogram. Electronically signed by: Daiana Segal DO 03/16/2024 05:44 PM EST Dictated By: Daiana Segal DO Signed By: <Electronically signed by Daiana Segal DO in OV> 03/16/24 1744 DD/ 1248 TD/TT: 03/10/24 1308 Gas Pipe Layer: Vidhya Padilla ARTIST AGENT IMG BI PROCEDURES Edited Result - Final * Hepatitis Panel, General (03/14/2023 10:20 AM EST) Hepatitis A IgM Nonreactive Nonreactive [facility] Comment:IgM antibodies to QUEZADA V not detected; does not exclude earlyacute or recovered HAV infection. ~Hepatitis B Surface Antibody NONREACTIVE Nonreactive [facility] Comment:Nonreactive: < 8.00 mIU/mL Hepatitis B Core Antibody Nonreactive Nonreactive [facility] Hepatitis C Antibody Nonreactive Nonreactive [facility] Comment:Antibodies to HCV no t detected; does not exclude early acuteHCV infection. Hepatitis B Surface Ag Negative Negative [facility] 03/14/2023 10:2 0 AM EST 03/14/2023 10:26 AM EST Generic External Data Provider LAB BLOOD ORDERAB LES Final Result [facility] [address] [place] [phone] * Colonoscopy (05/10/2022 8:39 AM EDT) Pathologist [facility] [place] Colonoscopy Normal Normal Narrative Shanice Perez - 05/10/2022 8:39 AM EDT Recommended 3 year follow up ([facility]) us Historical Provider HEALTH MAINTENANCE Edited Result - Final * (ABNORMAL) LIPID PANEL, STANDARD (08/05/2021 9:50 AM EDT) Chol/HDLC Ratio 4.1 <5.0 (calc) [facility] ?? Eliceo AMATO et al. ROLDAN. 2013;310(19): 3076-0026 ?? (http://education.Mr. Youth/faq/EAK473) Non-HDL Cholesterol 181(H) <130 mg/dL (calc) [facility] Comment: For patients with diabetes plus 1 major ASCVD risk ?? factor, treating to a non-HDL-C goal of <100 mg/dL ?? (LDL-C of <70 mg/dL) is considered a therapeutic ?? option. Triglycerides 126 <150 mg/dL [facility] 08/05/2021 9:50 AM EDT us Claribel Grissom MD LAB BLOOD ORDERABLES Final R esult [facility] [address] from Last 3 Months or Most Recently Relevant to Health Maintenance Insurance [employer] Care Teams Glass Cutter Helper Relationship Specialty Start Date End Date Name, MD Les [address] [place] [phone] PCP - General Internal Medicine 10/09/23
--- OUTSIDE RECORDS SUMMARY | 2024-05-28 15:57 | XMS_ITS | Clinical Summary ---
Author Organization [facility] Address [address] [place] [address] Care Team Providers Care Plastic Surgery Specialist Name Role Phone Vidhya Padilla FRONT DESK TEAM MEMBER Primary Care Provider [phone] Allergies Active Allergy Reactions Criticality Noted Date [...] 2 HOURS, MAXIMUM 2/DAY, 6/WEEK 12 tablet 01/14/20 Active Active Problems Problem Noted Date [...] 10:21 AM EST - 03/31/2024 11:59 PM EST Hospital Encounter [facility] [address] [place] [address] Giovany Machado MD Rodriguez, Zuleyka M Intractable [...] Info) Description 06/25/2024 8:00 AM EDT Appointment [facility] [address] [place] [address] Giovany Machado MD [address] [place] [address] Rafaela Beck 07/03/2024 9:00 AM EDT Office Visit [facility] Neurology [address] [place] [address] Mary Maria MD [address] [place] [address] Health Maintenance Due Date Last Done Comments Cervical Cancer Screening 1964 Cologuard 1964 Colon Cancer Screening 1964 Colonoscopy 1964 FOBT / Fit Test 1964 HIV Screening 1964 HPV and Pap Smear 1964 Hepatitis C Screening 1964 Pap Smear 1964 Sigmoidoscopy 1964 Pneumococcal Vaccine: 50+ Years (1 of 1 - PCV) 2014 Mammogram 01/26/2023 01/26/2021, 12/06, 11/15/2017 COVID-19 Vaccine ( season) 2023 12/16/2021, 12/29/2020, 06/16/2020, Additional history exists Alcohol/Substance Use Screening 02/06/2024 Depression Screening and Follow-Up 02/06/2024 Social Drivers of Health Annual Screening 02/06/2024 Influenza Vaccine (Season Ended) 2024 12/25/2022, 11/17/2021, 12/29/2020, Additional history exists DTaP,Tdap,and Td Vaccines (3 - Td or Tdap) 07/20/2031 07/19/2021, 09/01/2010 RSV Vaccine (60+ years old and patients) (1 - 1-dose 75+ series) 05/20/2039 Zoster Vaccines Completed 10/18/2021, 07/19/2021 Hepatitis B Vaccines Aged Out No long er eligible based on patient's age to complete this topic [place] [id number] Care Teams Plastic Surgery Specialist Relationship Specialty Start Date End Date Vidhya Padilla NP [address] [place] [address] PCP - General Family Medicine 07/27/22
== END 2024-05-28 14:25 | disposition home or self-care (01) ==
LOC: HO.HGS 13:29
PROVIDERS: PCP Nurse Practitioner Family; Visit Provider Surgery
DX: K64.9 Unspecified hemorrhoids (principal)
CPT/HCPCS: 46600; 99213

== ENCOUNTER → 2024-05-28 13:28 | Outpatient (BNVA) | payer MEDICAID, SELFPAY | PROVIDERS: PCP Nurse Practitioner Family; Visit Provider Surgery | DX: K64.9 Unspecified hemorrhoids (principal) | CPT/HCPCS: 46600; 99212 ==

== ENCOUNTER 2024-06-09 13:55 | Outpatient (AMB) | payer MEDICAID, SELFPAY ==
--- NOTE | 2024-06-09 14:00 | MHC.OFFVIS ---
Vital Signs 06/09/24 14:10 Height 5 ft 4 in Weight 165 lb 5.547 oz BMI 28.4 BP 95/49 L Blood Pressure Location Lt brachial Position Sitting Pulse 66 Intake Visit Reasons: 6 wks f/u Intake Note: Kacy presents in the office as a 6 week follow up. CC: She states that she is feeling okay - she is continuing for the same symptoms as she was before no new changes. [employer] Workers Required: Yes Allergies Penicillins [PENICILLINS] Allergy (Intermediate, Verified 06/09/24 14:13) HIVES/SWELLING bupropion [From Wellbutrin] Allergy (Verified 06/09/24 14:13) hives, swelling HPI HPI 6 wks f/u: Details: 59 yr old f here for f/u for pos c diff gene PCR and diarrhea RECAP: She tried the vanc for 10d but never got the rifaximin for 20d --? not covered by insurance feels it made no change she still has diarrhea she tried levsin didnt help her sx she still doesnt want to try fecal transplant she takes probiotic she felt hemorrhoids were acting up-was sent to dr romulo hurley she is taking fiber Endoscopies: colonoscopy-- 05/2022--- normal random bx, tubular adenomas removed TEST: CT A/P:12/28-- diverticulosis, (prior scan with possible descending colitis) US abdo 12/2022--- nml mesenteric duplex-- 02/28/23--nml Labs: Hgb 11, stool pcr c diff pos several times REPT EGD/[facility] Endoscopy Findings: esophagitis gastritis schatzki ring Colonoscopy Findings: diverticulosis colon polyps internal hemorrhoids path--TA removed, Stool testing: still pos for c diff gene but neg toxin, neg fecal lactoferrin Repet EGD/colo doen due to abn CT with possible sigmoid mass 11/28 Endoscopy Findings: small hiatal hernia esophagitis gastritis Colonoscopy Findings: diverticulosis non specific colitis, ?SCAD internal hemorrhoids she has tried and failed mesalamine PO and enemas, budesonide, multiple courses of ABx, lomotil bx with focal colitis, enteritis Saw ID and had zinplava, but felt no better INTERIM: ongoing issues as before with diarrhea, x 10-12 times a day nausea and vomiting every day she has ongoing left sided abdominal pain, she has ongoing GERD felt no benefit from omeprazole or esomeprazole EXAM: GENERAL: The patient is well developed and nontoxic. VITAL SIGNS:see workflow HEENT: Nonicteric sclerae, PERRLA, EOMI. Oropharynx clear. Moist mucous membranes. Conjunctivae appear well perfused. No thyroid mass. CHEST: Chest wall is nontender. HEART: Regular rate and rhythm without murmurs. LUNGS: Clear to auscultation bilaterally. ABDOMEN: Soft, positive bowel sounds, tender mid abdomen, no organomegaly.no flank tenderness SKIN: No rash, no excessive bruising, petechiae, or purpura. NEUROLOGIC: Cranial nerves II-XII intact without motor/sensory deficit. A/P: 1/ Colitis and enteritis, with c diff carrier state, tried multiple meds, intolerances, and non response 2/ GERD Plan: 1/ change PPI to H2 eleazar 2/ discussed fecal transplant, vs cholestyramine trial, low dose ABx, and trial of tumeric, will try cholestyramine and see if helps PFSH Medical History Clostridioides difficile diarrhea Bleeding hemorrhoids Chronic abdominal pain Diverticular disease of colon Irritable bowel syndrome with diarrhea LLQ cramping Colitis Lower abdominal pain GERD (gastroesophageal reflux disease) Left lower quadrant pain Tubular adenoma of colon Sigmoid diverticulitis Acute diverticulitis Diarrhea Diverticulitis Abdominal pain GERD (gastroesophageal reflux disease) Chronic idiopathic constipation Constipation Surgical History History of intestinal surgery History of partial hysterectomy (~09/2006) Hx of hemorrhoidectomy Hx of colonoscopy History of esophagogastroduodenoscopy (EGD) Family History Father Cancer HTN (hypertension) Mother HTN (hypertension) Hyperthyroidism Migraine headache Maternal Grandmother History of breast cancer Paternal Grandmother History of breast cancer Family/Other Colon cancer Paternal Aunt Ovarian cancer Social History Household Members: Family and None Housing: Apartment Are you a primary career services manager to a significant other at home: No Do you presently have visiting nurse or other home services: No Alcohol intake: never Patient Tobacco Use Status: Never used Tobacco service: No Current occupational status: disabled Current occupational exposures/hazards: No Female Reproductive History Menstrual Age of Menarche: 7 Physical Exam Vital Signs: Last Vital Signs Pulse 66 06/09/24 14:10 BP 95/49 L 06/09/24 14:10 BMI result Body Mass Index 28.4 Assessment & Plan Assessment & Plan (1) C. difficile enteritis: Comment: no other acute infections seen Code(s): A04.72 - Enterocolitis due to Clostridium difficile, not specified as recurrent Category: Medical Plan: as above Medications: New cholestyramine (Cholestyramine Light) administer w/meal; avoid other meds within 1hr before or 4-6hr after dose 4 grams PO BID 60 ea 1RF famotidine (Pepcid) 40 mg PO BID 90 tabs 1RF cholecalciferol (vitamin D3) 25 mcg PO QAM 90 tabs 1RF Discontinued omeprazole Discontinued Reason: Doctor's Order 40 mg PO DAILY 30 caps 2RF esomeprazole magnesium Discontinued Reason: Doctor's Order 20 mg PO DAILY 90 caps 1RF Coding Level of Care Code Est Pt Level 3 (42646) Diagnoses C. difficile enteritis A04.72
[2024-06-09 14:10] VITALS: BP 95/49; PULSE 66; BMI 28.4
--- OUTSIDE RECORDS SUMMARY | 2024-06-09 15:28 | XMS_ITS | Encounter Summary ---
Author Organization [facility] Address [address] [place] [address] Care Team Providers Care Health Diagnostics Teacher Name Role Phone Melyssa Alonso MD Primary Care Provider [phone] Encounter Details Date Type Department Care Team (Late st Contact Info) Description 01/10/2021 Orders Only [facility] [address] [place] [phone] Rehan Gerard, RN [address] [place] [phone] Medications Social History Tobacco Use Types Packs/Day [...] on filedocumented in this encounter Care Teams Health Diagnostics Teacher Relationship Specialty Start Date End Date Melyssa Alonso MD [facility] [address] [place] [address] PCP - General Internal Medicine 07/15/20 documented as of this encounter
--- OUTSIDE RECORDS SUMMARY | 2024-06-09 15:28 | XMS_ITS | Encounter Summary ---
Author Organization [employer] Address [address] [place] [address] 7t [place] [address] Care Team Providers Care Crisis Intervention Counselor Name Role Phone Vidhya Padilla Primary Care Provider [phone] NameLes MD Primary Care Provider [phone] Encounter Details Date Type Department Care Team (Late Contact Info) Description 03/21/2022 Orders Only [facility] MEDICINE [address] [place] [address] Vidhya Padilla FNP [address] [place] [address] Sigmoid diverticulitis (Primary Dx) Social History Tobacco [...] 2:30 PM EDT Office Visit [facility] OPTOMETRY [address] [place] [address] Lakshmi Gutiérrez, OD [address] [place] [address] documented as of this encounter Visit Diagnoses Diagnosis Sigmoid diverticulitis- Primary Diverticulitis of colon (without mention of hemorrhage) documented in this encounter Care Teams Crisis Intervention Counselor Relationship Specialty Start Date End Date Vidhya Padilla FNP [address] [place] [address] PCP - General Family Medicine 02/07/22 10/08/23 Name, MD Les [address] [place] [address] PCP - General Internal Medicine 10/09/23 documented as of this encounter
--- OUTSIDE RECORDS SUMMARY | 2024-06-09 15:28 | XMS_ITS | Clinical Summary ---
Author Organization [facility] Address [address] [place] [address] Care Team Providers Care Munitions Handler Name Role Phone Vidhya Padilla IDENTIFICATION AND RECORDS COMMANDER Primary Care Provider [phone] Allergies Active Allergy Reactions Criticality Noted [...] - 03/31/2024 11:59 PM EST Hospital Encounter [facility] Neurodiagnostics [address] [place] [address] Giovany Machado MD Rodriguez, Zuleyka M Intractable [...] Info) Description 06/25/2024 8:00 AM EDT Appointment [facility] Neurodiagnostics [address] [place] [address] Giovany Machado MD [address] [place] [address] Rafaela Beck 07/03/2024 9:00 AM EDT Office Visit [facility] Neurology [address] [place] [address] Mary Maria MD [address] [place] [address] Health Maintenance Due Date Last Done Comments [...] patient's age to complete this topic Insurance [facility] [place] [id number] Care Teams Munitions Handler Relationship Specialty Start Date End Date Vidhya Padilla NP [address] [place] [address] PCP - General Family Medicine 07/27/22
--- OUTSIDE RECORDS SUMMARY | 2024-06-09 15:28 | XMS_ITS | Encounter Summary ---
Author Organization [employer] Address [address] [facility] 7t [place] [address] Care Team Providers Care Cumulative Effects Analyst Name Role Phone Vidhya Padilla Primary Care Provider [phone] Name, Les GARCIA Primary Care Provider [phone] Encounter Details Date Type Department Care Team ([facility] st Contact Info) Description 01/10/2023 Telephone [facility] MEDICINE [address] [place] [address] Vidhya Padilla FNP [address] [place] [address] Social History Tobacco Use Types Packs/Day Years [...] T/C to pt. For below message through Poached Jobs id - [id number], pt. States she was treated for this [...] call received at this time. from [facility] call[place]ing to repot patient is POSitive for CDIFF as resulted yesterday. requests that and be updated. Patient PCP Zane WEATHERS messaged as well. Dr. Veliz may be reached at [phone]. Please follow with . documented in this encounter Plan of Treatment Upcoming Encounters Date Type Department Care Team (Late st Contact Info) Description 07/09/2024 2:30 PM EDT Office Visit [facility] OPTOMETRY [address] [place] [address] Brock, Lakshmi, OD [address] [place] [address] documented as of this encounter Visit Diagnoses Not on filedocumented in this encounter Additional Health Concerns Assessment Noted Time PHQ-9 Depression Total Score: 18 023 9:14 AM EDT documented as of this encounter Care Teams Cumulative Effects Analyst Relationship Specialty Start Date End Date Vidhya Padilla FNP [address] [place] [address] PCP - General Family Medicine 02/07/22 10/08/23 Melissa, MD Les [address] [place] [address] PCP - General Internal Medicine 10/09/23 documented as of this encounter
--- OUTSIDE RECORDS SUMMARY | 2024-06-09 15:28 | XMS_ITS | Encounter Summary ---
Author Organization [employer] Address [address] [place] [address] 7t [place] [address] Care Team Providers Care Hardware Supplies Sales Representative Name Role Phone Vidhya Padilla Primary Care Provider [phone] Name, Les GARCIA Primary Care Provider [phone] Reason for Visit * Reason Onset Date Comments Referral 03/01/2022 Encounter Details Date Type Department Care Team (Late st Contact Info) Description 03/01/2022 Telephone [facility] MEDICINE [address] [place] [address] Vidhay Padilla FNP [address] [place], [place] [phone] Referral Social History Tobacco Use Types Packs/Day [...] 03/01/2022 2:52 PM EST Telephone [place] [facility] [place] in regards to pt's referral. Pt needs referral for cyst in kidney andabdominal pain per [facility]. N28.1 and R10.9 respectively. * Telephone Encounter - Nolan Carlisle - 03/01/2022 9:03 AM EST Tc from pt requesting a referral to [facility]. Pt states she received a call and she was advised to request a referral do to something in her Left Kidney. Tire Curer was attempting togather details, pt was unable to provide details. 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
--- OUTSIDE RECORDS SUMMARY | 2024-06-09 15:28 | XMS_ITS | Clinical Summary ---
Author Organization [employer] Address [address] [facility] 7t [place] [address] Care Team Providers Care Dressage Instructor Name Role Phone Name, Les GARCIA Primary Care Provider [phone] Allergies Active Allergy Reactions Criticality Noted Date [...] External Data 04/18/2024 Population Health Risk Score [facility] ([facility]) Department [address] [place] [phone] Provider, Population Health Generic from Last 3 Months Immunizations Name Administration [...] Description 07/09/2024 2:30 PM EDT Office Visit [facility] OPTOMETRY [address] [place] [address] Brock, Lakshmi, OD [address] [place] [address] Health Maintenance Due Date Last Done Comments [...] Additional history exists Influenza Vaccine (#1) 2023 3, 11/17/2021, 12/29/2020, Additional history exists Tobacco Screening 03/25/2025 03/25/2024 Colonoscopy 05/10/2025 05/10/2022 Colorectal Cancer Screening 05/10/2025 Mammogram 03/10/2026 03/10/2024, 12/03/2020, 01/06/2020, Additional history exists Lipid Panel 08/05/2026 [...] Vitamin B5 (Pantothenic Acid) 41 <275 ng/mL [facility] Comment:This test was thomas iraheta and its analyticalperformance characteristics have been determinedby [facility], [place], [place].It has not been cleared or approved by the FDA. Thisassay has been validated pursuant to the CLIAregulations and is used for clinical purposes.THIS TEST WAS PERFORMED AT:[place] [id number] [place] [id number] HOWARD MD,PHD 04/28/2024 3:45 PM EDT 04/28/2024 3:45 PM EDT Generic External Data Provider LAB BLOOD ORDERAB LES Final Result Performing Organization Address [facility] Co de Phone Number [facility] [address] [place] [phone] * Vitamin K1 (04/28/2024 3:45 PM EDT) Vitamin K1 821 130 - 1500 pg/mL [facility] Comment:This test was develo ped and its analytical performancecharacteristics have been determined by [employer] [place], [place]. It hasnot been cleared or approved by the U.S. Food and DrugAdministration. This assay has been validated pursuantto the CLIA regulations and is used for clinicalpurposes.THIS TEST WAS PERFORMED AT:[place]/YopimaY[address] [place] [address]SDFHDCOIZZY HOWARD MD,PHD 04/28/2024 3:45 PM EDT 04/28/2024 3:45 PM EDT Generic External Data Provider LAB BLOOD ORDERAB LES Final Result Performing Organization Address [facility] de Phone Number [facility] [address] [place] [phone] * (ABNORMAL) Vitamin D, 25-Hydroxy, Total, Immunoassay (04/28/2024 3:45 PM EDT) Vitamin D 25-OH Total 19.1(L) >30 ng/mL [facility] Comment: Health Based Reference Values*< 20 ??ng/mL ??Dxgralbmv96-80 ng/mL ??Insufficient> 30 ??ng/mL ??Sufficient*Hermilo DIAZ. N [...] Provider LAB BLOOD ORDERAB LES Final Result [facility] [address] [place] [phone] * Vitamin B12 (Cobalamin) and Folate Panel, Serum (04/28/2024 3:45 PM EDT) Vitamin B12 277 200 - 900 pg/mL [facility] Comment:NORMAL 200-900 PG/ML INDETERMINATE 160-199 PG/ML DEFICIENT < 160 PG/ML Folate 12.1 > or = 4.0 ng/mL [facility] Comment:Reference Values:> o r = 4.0 ng/mL< 4.0 ng/mL suggests folate deficiency Methotrexate, aminopterin and folinic acid(leucovorin) are chemotherapeutic agents whose molecularstructures are similar to folate; therefore, the Architectfolate assay cannot be used for patients using these drugs. 04/28/2024 3:45 PM EDT 04/28/2024 3:45 PM EDT Generic External Data Provider LAB BLOOD ORDERAB LES Final Result Performing Organization Address [facility] Co de Phone Number [facility] [address] [place] [phone] * Zinc (04/28/2024 3:45 PM EDT) Pathologist [facility] Zinc 69 60 - 130 mcg/dL [facility] Comment:This test was develo ped and its analytical performancecharacteristics have been determined by [employer] [place]. It hasnot been cleared or approved by the .S. Food and DrugAdministration. This assay has been validated pursuantto the CLIA regulations and is used for clinicalpurposes.THIS TEST WAS PERFORMED AT:[place] [id number] [address]LCLIGDAIZZY HOWARD MD,PHD 04/28/2024 3:45 PM EDT 04/28/2024 3:45 PM EDT Generic External Data Provider LAB BLOOD ORDERAB LES Final Result Performing Organization Address [facility] de Phone Number [facility] [address] [place] [phone] * Vitamin A (04/28/2024 3:45 PM EDT) Pathologist [facility] Vitamin A (Retinol) 43 38 - 98 mcg/dL [facility] Comment:Vitamin supplementat ion within 24 hours prior toblood draw may affect the accuracy of the results.This test was developed and its analytical performancecharacteristics have been determined by [place]. It hasnot been cleared or approved by the U.S. Food and DrugAdministration. This assay has been validated pursuantto the CLIA regulations and is used for clinicalpurposes.THIS TEST WAS PERFORMED AT:[place]/YopimaY[address] [place] [address]KXTJJJIIZZY HOWARD MD,PHD 04/28/2024 3:45 PM EDT 04/28/2024 3:45 PM EDT us Generic External Data Provider LAB BLOOD ORDERAB LES Final Result [facility] [address] [place] [phone] [phone] * Vitamin B3 (Niacin and Metabolite) (04/28/2024 3:45 PM EDT) Nicotinic Acid <20 see note ng/mL [facility] Comment:Due to the large elida iability [...] and its analyticalperformance characteristics have been determinedby [facility], [place], [place].It has not been cleared or approved by the FDA. Thisassay has been validated pursuant to the CLIAregulations and is used for clinical purposes. Nicotinamide <20 see note ng/mL [facility] Comment:Nicotinamide is a me tabolite of [...] and its analyticalperformance characteristics have been determinedby [employer] [place], [place].It has not been cleared or approved by the FDA. Thisassay has been validated pursuant to the CLIAregulations and is used for clinical purposes.THIS TEST WAS PERFORMED AT:[place] [id number] [place] [id number] HOWARD MD,PHD 04/28/2024 3:45 PM EDT 04/28/2024 3:45 PM EDT us Generic External Data Provider LAB BLOOD ORDERAB LES Final Result Performing Organization Address [facility]/ZIP Co de Phone Number [facility] [address] [place] [phone] [phone] * Vitamin C (04/28/2024 3:45 PM EDT) Vitamin C 0.7 0.3 - 2.7 mg/dL [facility] Comment:This test was develo ped and its analyticalperformance characteristics have been determinedby [employer] [place], [place].It has not been cleared or approved by the FDA. Thisassay has been validated pursuant to the CLIAregulations and is used for clinical purposes.THIS TEST WAS PERFORMED AT:[place] [id number] [place] [id number] HOWARD MD,PHD 04/28/2024 3:45 PM EDT 04/28/2024 3:45 PM EDT us Generic External Data Provider LAB BLOOD ORDERAB LES Final Result Performing Organization Address [facility]/ZIP Co de Phone Number [facility] [address] [place], [place] [phone] * Vitamin E (Tocopherol) (04/28/2024 3:45 PM EDT) Vitamin E, Alpha-Tocopherol 16.4 5.7 - 19.9 mg/L [facility] Comment:Levels of alpha-toco pherol <5 mg/L are consistentwith Vitamin E deficiency in adults. Vitamin E, Parn-Loxbo-Assrlwbdsy 1.3 <=4.3 mg/L [facility] Comment:Vitamin supplementat ion within 24 hours prior toblood draw may affect the accuracy of the results.This test was developed and its analytical performancecharacteristics have been determined by [employer] [place]. It hasnot been cleared or approved by the .S. Food and DrugAdministration. This assay has been validated pursuantto the CLIA regulations and is used for clinicalpurposes.THIS TEST WAS PERFORMED AT:[employer] [id number] [place] [id number] HOWARD MD,PHD 04/28/2024 3:45 PM EDT 04/28/2024 3:45 PM EDT us Generic External Data Provider LAB BLOOD ORDERAB LES Final Result [facility] [address] [place] [phone] * Vitamin B1 (04/28/2024 3:45 PM EDT) Vitamin B1 10 8 - 30 nmol/L [facility] Comment:Vitamin supplementat ion within 24 hours prior toblood draw may affect the accuracy of the results.This test was developed and its analytical performancecharacteristics have been determined by [place]. It hasnot been cleared or approved by the U.S. Food and DrugAdministration. This assay has been validated pursuantto the CLIA regulations and is used for clinicalpurposes.THIS TEST WAS PERFORMED AT:[employer] HoldingsTILLY[address] [place] [address]YXWXWGDIZZY HOWARD MD,PHD 04/28/2024 3:45 PM EDT 04/28/2024 3:45 PM EDT us Generic External Data Provider LAB BLOOD ORDERAB LES Final Result Performing Organization Address [facility] Co de Phone Number [facility] [address] [place] [phone] * Vitamin B6, Plasma (04/28/2024 3:45 PM EDT) Vitamin B6 18.6 2.1 - 21.7 ng/mL [facility] Comment:Vitamin supplementat ion within 24 hours prior toblood draw may affect the accuracy of the results.This test was developed and its analytical performancecharacteristics have been determined by [employer] [place], [place]. It hasnot been cleared or approved by the U.S. Food and DrugAdministration. This assay has been validated pursuantto the CLIA regulations and is used for clinicalpurposes.THIS TEST WAS PERFORMED AT:[place] [place] [address]TLAILDWIZZY HOWARD MD,PHD 04/28/2024 3:45 PM EDT 04/28/2024 3:45 PM EDT us Generic External Data Provider LAB BLOOD ORDERAB LES Final Result Performing Organization Address [facility] Co de Phone Number [facility] [address] [place] [phone] * Phosphate (As Phosphorus) (04/28/2024 3:45 PM EDT) Phosphorus 3.9 2.7 - 4.5 mg/dL [facility] 04/28/2024 3:45 PM EDT 04/28/2024 3:45 PM EDT us Generic External Data Provider LAB BLOOD ORDERAB LES Final Result Performing Organization Address [facility] Co de Phone Number [facility] [address] [place] [phone] * Magnesium (04/28/2024 3:45 PM EDT) Pathologist [facility] Magnesium 2.1 1.6 - 2.6 mg/dL [facility] 04/28/2024 3:45 PM EDT 04/28/2024 3:45 PM EDT us Generic External Data Provider LAB BLOOD ORDERAB LES Final Result Performing Organization Address [facility] Co de Phone Number [facility] [address] [place] [phone] * Ferritin (04/28/2024 3:45 PM EDT) [facility] Ferritin 41 10 - 250 ng/mL [facility] 04/28/2024 3:45 PM EDT 04/28/2024 3:45 PM EDT us Generic External Data Provider LAB BLOOD ORDERAB LES Final Result Performing Organization Address [facility] de Phone Number [facility] [address] [place] [phone] * BI Mammogram Screening Tomosynthesis Bilateral (03/10/2024 12:48 PM EST) Anatomical Region Laterality Modality Breast Bilateral Mammography 03/10/2024 12:4 8 PM EST Narrative 03/16/2024 5:47 PM EST ? [facility] ? [address] ?[place] [address] ? Mammography Report ? Signed ? Patient: Merritt,Kacy ?MR#: [id number] ?? 9 ? : 1965 ?Acct:[id number] ? Age/Sex: 58 / F ?ADM Date: 02/03/25 ? Loc: HO.MAMMO ? Attending Dr: Vidhya Padilla ENVIRONMENTAL ENGINEERING ASSISTANT ? Ordering Physician: Vidhya Padilla ENVIRONMENTAL ENGINEERING ASSISTANT ?Results: 1Negativ ?? e ? Date of Service: 03/10/24 ?Follow Up: 1 Year From Orig ?? inal Mammogram ? Procedure(s): MM tomosynthesis screening BI ?? Accession Number(s): [id number] ? cc: Vidhya Padilla ENVIRONMENTAL ENGINEERING ASSISTANT ? EXAMINATION: ?? MM SCREENING DIGITAL BREAST [...] DD/ 1248 ? TD/TT: 03/10/24 1308 ? Wildlife Conservation Professor: ? Procedure Note Donotuseinterpreter, Image - 03/16/2024 Zeeshan [facility] [address] [place] [address] Mammography Report Signed Patient: Meghan Merritt#: [id number] 9 : 1965Acct:[id number] Age/Sex: 58 / FADM Date: 03/10/24 Loc: HO.MAMMO Attending Dr: Vidhya Padilla ENVIRONMENTAL ENGINEERING ASSISTANT Ordering Physician: Vidhya Padilla NPResults: 1Negativ e Date of Service: 03/10/24Follow Up: 1 Year From Orig inal Mammogram Procedure(s): MM tomosynthesis screening BI Accession Number(s): [id number] cc: Vidhya Padilla NP EXAMINATION: MM SCREENING [...] by: Daiana Segal DO 03/16/2024 05:44 PM [facility] Dictated By: Daiana Segal DO Signed By: <Electronically signed by Daiana Segal DO in OV> 03/16/24 1744 DD/ 1248 TD/TT: 03/10/24 1308 Wildlife Conservation Professor: Vidhya Padilla ROTARY SHEAR WORKER HELPER IMG BI PROCEDURES Edited Result - Final * Hepatitis Panel, General (03/14/2023 10:20 AM EST) Pathologist [facility] Hepatitis A IgM Nonreactive Nonreactive [facility] Comment:IgM antibodies to QUEZADA V not detected; does not exclude earlyacute or recovered HAV infection. ~Hepatitis B Surface Antibody NONREACTIVE Nonreactive [facility] Comment:Nonreactive: < 8.00 mIU/mL Hepatitis B Core Antibody Nonreactive Nonreactive [facility] Hepatitis C Antibody Nonreactive Nonreactive [facility] Comment:Antibodies to HCV no t detected; does not exclude early acuteHCV infection. Hepatitis B Surface Ag Negative Negative [facility] 03/14/2023 10:2 0 AM EST 03/14/2023 10:26 AM EST Generic External Data Provider LAB BLOOD ORDERAB LES Final Result [facility] [address] [place] [phone] * Colonoscopy (05/10/2022 8:39 AM EDT) Pathologist [facility] Colonoscopy Normal Normal Narrative Shanice Perez - 05/10/2022 8:39 AM EDT Recommended 3 year follow up ([facility]) Historical Provider HEALTH MAINTENANCE Edited Result - Final * (ABNORMAL) LIPID PANEL, STANDARD (08/05/2021 9:50 AM EDT) Pathologist [facility] Chol/HDLC Ratio 4.1 <5.0 (calc) [facility] ?? Eliceo AMATO et al. ROLDAN. 2013;310(19): 5317-7117 ?? (http://Simpler.Friendemic/faq/AKM926) Non-HDL Cholesterol 181(H) <130 mg/dL (calc) [facility] Comment: For patients with diabetes plus 1 major ASCVD risk ?? factor, treating to a non-HDL-C goal of <100 mg/dL ?? (LDL-C of <70 mg/dL) is considered a therapeutic ?? option. Triglycerides 126 <150 mg/dL [facility] 08/05/2021 9:50 AM EDT us Claribel Grissom MD LAB BLOOD ORDERABLES Final R esult [facility] [address] from Last 3 Months or Most Recently Relevant to Health Maintenance Insurance [employer] Care Teams Dressage Instructor Relationship Specialty Start Date End Date Name, MD Les [address] [place] [phone] PCP - General Internal Medicine 10/09/23
--- OUTSIDE RECORDS SUMMARY | 2024-06-09 15:28 | XMS_ITS | Encounter Summary ---
Author Organization [employer] Address [address] [place] [address] [address]t [place] [address] Care Team Providers Care Latexer Name Role Phone Vidhya Padilla Primary Care Provider [phone] Name, Les GARCIA Primary Care Provider [phone] Reason for Visit * Reason Comments Med Change Request Encounter Details Date Type Department Care Team (Late st Contact Info) Description 08/02/2022 Refill [facility] MEDICINE [address] [place] [address] Vidhya Padilla FNP [address] [place] [address] Social History Tobacco Use Types Packs/Day Years [...] Description 07/09/2024 2:30 PM EDT Office Visit [facility] OPTOMETRY [address] [place], [place] [phone] BrockLakshmi gale, OD [address] [place] [address] documented as of this encounter Visit Diagnoses Not on filedocumented in this encounter Additional Health Concerns Assessment Noted Time PHQ-9 Depression Total Score: 18 023 9:14 AM EDT documented as of this encounter Care Teams Latexer Relationship Specialty Start Date End Date Vidhya Padilla FNP [address] [place] [address] PCP - General Family Medicine 02/07/22 10/08/23 Name, MD Les [address] [place] [address] PCP - General Internal Medicine 10/09/23 documented as of this encounter
--- OUTSIDE RECORDS SUMMARY | 2024-06-09 15:28 | XMS_ITS | Referral Summary ---
Author Organization [facility] Address [address] [place] [address] Care Team Providers Care Case Managers Name Role Phone Vidhya Padilla NP Primary Care Provider [phone] Encounters Date Type Department Care Team Description 03/31/2024 10:21 AM EST - 03/31/2024 11:59 PM [facility] Hospital Encounter [facility] Neurodiagnostics [address] [place] [address] Giovany Machado MD Rodriguez, Zuleyka M Intractable [...] Info) Description 06/25/2024 8:00 AM EDT Appointment [facility] Neurodiagnostics [address] [place] [address] [id number] Giovany Machado MD [address] [place] [address] Rafaela Beck 07/03/2024 9:00 AM EDT Office Visit [facility] Neurology [address] [place] [address] Mary Maria MD [address] [place] [address] [place] [phone] Care Teams Case Managers Relationship Specialty Start Date End Date Vidhya Padilla NP [address] [place] [address] PCP - General Family Medicine 07/27/22
--- OUTSIDE RECORDS SUMMARY | 2024-06-09 15:28 | XMS_ITS | Encounter Summary ---
Author Organization [facility] Address [address] [place] [address] Care Team Providers Care Consumer Educator Name Role Phone Vidhya Padilla NP Primary Care Provider [phone] Encounter Details Date Type Department Care Team (Late Contact Info) Description 11/08/2020 Orders Only [facility] [address] [place] [address] Santy Madison MD [address] [place] [address] Social History Tobacco Use Types Packs/Day Years [...] Info) Description 06/25/2024 8:00 AM EDT Appointment [facility] Neurodiagnostics [address] [place] [address] Giovany Machado MD [address] [place] [address] Rafaela Beck 07/03/2024 9:00 AM EDT Office Visit [facility] Neurology [address] [place] [address] Mary Maria MD [address] [place] [address] documented as of this encounter Visit Diagnoses Not on filedocumented in this encounter Additional Health Concerns Infection Onset Date Last Indicated Resolved Time R/O C.diff 08/25/2022 08/25/2022 08/25/2022 3:19 PM EDT R/O C.diff 09/06/2022 09/06/2022 09/06/2022 12:3 1 PM EDT R/O C.diff 10/03/2022 10/03/2022 10/04/2022 4:31 AM EDT documented as of this encounter Care Teams Consumer Educator Relationship Specialty Start Date End Date Vidhya Padilla NP [address] [place] [address] PCP - General Family Medicine 07/27/22 documented as of this encounter
--- OUTSIDE RECORDS SUMMARY | 2024-06-09 15:28 | XMS_ITS | Encounter Summary ---
Author Organization [facility] Address [address] [place] [address] Care Team Providers Care Newspaper Carriers Supervisor Name Role Phone Vidhya Padilla SUPPORT ARCHITECT Primary Care Provider [phone] Reason for Visit * Reason Onset Date Comments PAC Appt Request - New 07/27/2022 Encounter Details Date Type Department Care Team ([facility] Contact Info) Description 07/27/2022 Telephone [facility] [address] [place] [phone] Telephone Intake, Staff PAC Appt Request - [...] available is February, please call patient with japanese interpreter to schedule appt. documented in this encounter Plan of Treatment Upcoming Encounters Date Type Department Care Team (Late st Contact Info) Description 06/25/2024 8:00 AM EDT Appointment [facility] Neurodiagnostics [address] [place] [address] Giovany Machado MD [address] [place] [phone] Rafaela Beck 07/03/2024 9:00 AM EDT Office Visit [facility] Neurology [address] [place] [phone] Mary Maria MD [address] [place] [phone] documented as of this encounter Visit Diagnoses Not on filedocumented in this encounter Additional Health Concerns Infection Onset Date Last Indicated Resolved Time R/O C.diff 08/25/2022 08/25/2022 08/25/2022 3:19 PM EDT R/O C.diff 09/06/2022 09/06/2022 09/06/2022 12:3 1 PM EDT R/O C.diff 10/03/2022 10/03/2022 10/04/2022 4:31 AM EDT documented as of this encounter Care Teams Newspaper Carriers Supervisor Relationship Specialty Start Date End Date Vidhya Padilla NP [address] [place] [address] PCP - General Family Medicine 07/27/22 documented as of this encounter
--- OUTSIDE RECORDS SUMMARY | 2024-06-09 15:28 | XMS_ITS | Clinical Summary ---
Author Organization [facility] Address [address] [place] [address] Care Team Providers Care Beam Worker Name Role Phone Melyssa Alonso MD Primary Care Provider [phone] Allergies Active Allergy Reactions Criticality Noted Date [...] (3 - season) 2023 06/16/2020, 2020 Influenza (Season Ended) 2024 019, 10/29/2017, 11/28/2016, Additional history exists RSV (1 - [...] Zoster (Zostavax) Discontinued Procedures * Due to [place] [employer] law, this organization might not be sharing negative HIV tests. Procedure Name Priority Date/Time Associated Diagnosis Comments COMPREHENSIVE EYE EXAM 07/15/2020 from Last 3 Months or Most Recently Relevant to Health Maintenance Results * Due to [facility] law, this organization might not be sharing negative HIV tests. * COMPREHENSIVE EYE EXAM (07/15/2020) Fawad VALENCIA PROCEDURE Final Result from Last 3 Months or Most Recently Relevant to Health Maintenance Insurance MEDICAID MEDICAID Care Teams Beam Worker Relationship Specialty Start Date End Date Melyssa Alonso MD [address] [address] PCP - General Internal Medicine 07/15/20
--- OUTSIDE RECORDS SUMMARY | 2024-06-09 15:28 | XMS_ITS | Encounter Summary ---
Author Organization [facility] Address [address] [place] [address] [address] [address] Care Team Providers Care Histopathology Technician Name Role Phone Claribel Grissom MD Primary Care Provider Vidhya Parker SNAILER Primary Care Provider [phone] Name, Les GARCIA Primary Care Provider [phone] Encounter Details Date Type Department Care Team ([facility] Contact Info) Description 01/25/2022 Telephone [facility] MEDICINE [address] [place] [address] Claribel Grissom MD Social History Tobacco Use [...] Upcoming Encounters Date Type Department Care Team ([facility] Contact Info) Description 07/09/2024 2:30 PM EDT Office Visit [facility] OPTOMETRY [address] [place] [address] Lakshmi Gutiérrez OD [address] [place] [address] documented as of this encounter Visit Diagnoses Not on filedocumented in this encounter Care Teams Histopathology Technician Relationship Specialty Start Date End Date Claribel Grissom MD PCP - General Family Medicine 12/09/18 02/06/22 Vidhya Padilla FNP [address] [place], [place] [phone] PCP - General Family Medicine 02/07/22 10/08/23 Les Torres MD [address] [place] [address] PCP - General Internal Medicine 10/09/23 documented as of this encounter
--- OUTSIDE RECORDS SUMMARY | 2024-06-09 15:28 | XMS_ITS | Encounter Summary ---
Author Organization [facility] Address [address] [place] [address] [address] [address] Care Team Providers Care Batch Analyst Name Role Phone Vidhya Padilla Primary Care Provider [phone] Name, Les GARCIA Primary Care Provider [phone] Encounter Details Date Type Department Care Team (Late Contact Info) Description 07/20/2022 Abstract [facility] [address] [place] [address] Vidhya Padilla FNP [address] [place] [address] Social History Tobacco Use Types Packs/Day Years [...] Description 07/09/2024 2:30 PM EDT Office Visit [facility] [address] [place] [address] Lakshmi Gutiérrez, OD [address] [place] [address] documented as of this encounter Procedures Procedure Name Priority Date/Time Associated Diagnosis Comments COLONOSCOPY Routine 05/10/2022 8:39 AM EDT documented in this encounter Results * Colonoscopy (05/10/2022 8:39 AM EDT) Colonoscopy Normal Normal Narrative Shanice Perez - 05/10/2022 8:39 AM EDT Recommended 3 year follow up ([facility] us Historical Provider [facility] Edited Result - Final documented in this encounter Visit Diagnoses Not on filedocumented in this encounter Additional Health Concerns Assessment Noted Time PHQ-9 Depression Total Score: 18 023 9:14 AM EDT documented as of this encounter Care Teams Batch Analyst Relationship Specialty Start Date End Date Vidhya Padilla FNP [address] [place] [address] PCP - General Family Medicine 02/07/22 10/08/23 Les Torres MD [address] [place] [address] PCP - General Internal Medicine 10/09/23 documented as of this encounter
== END 2024-06-09 14:31 | disposition home or self-care (01) ==
LOC: HO.HGI 13:56
PROVIDERS: PCP Nurse Practitioner Family; Visit Provider Internal Medicine Gastroenterology
DX: A04.72 Enterocolitis due to Clostridium difficile, not specified as recurrent (principal)
CPT/HCPCS: 99213

== ENCOUNTER → 2024-06-09 13:55 | Outpatient (BNVA) | payer MEDICAID, SELFPAY | PROVIDERS: PCP Nurse Practitioner Family; Visit Provider Internal Medicine Gastroenterology | DX: A04.72 Enterocolitis due to Clostridium difficile, not specified as recurrent (principal) | CPT/HCPCS: 99212 ==

== ENCOUNTER 2024-07-04 08:32 | Day surgery (SDC) | payer MEDICAID, SELFPAY ==
--- OUTSIDE RECORDS SUMMARY | 2024-06-04 06:15 | XMS_ITS | Encounter Summary ---
Author Organization [facility] Address [address] [place] [address] Care Team Providers Care Burr Machine Operator Name Role Phone Melyssa Alonso MD Primary Care Provider Encounter Details Date Type Department Care Team (Late st Contact Info) Description 01/10/2021 Orders Only [facility] [address] [place] [phone] Rehan Gerard, RN [address] [place] [phone] Medications Social History Tobacco Use Types Packs/Day [...] on filedocumented in this encounter Care Teams Burr Machine Operator Relationship Specialty Start Date End Date Melyssa Alonso MD [facility] [address] [place] [address] PCP - General Internal Medicine 07/15/20 documented as of this encounter
--- OUTSIDE RECORDS SUMMARY | 2024-06-04 06:16 | XMS_ITS | Encounter Summary ---
Author Organization [employer] Address [address] [place] [address] [address] [place] [address] Care Team Providers Care Paper Mill Superintendent Name Role Phone Vidhya Padilla Primary Care Provider [phone] Name, Les GARCIA Primary Care Provider [phone] Reason for Visit * Reason Comments Med Change Request Encounter Details Date Type Department Care Team (Late st Contact Info) Description 08/02/2022 Refill [facility] [address] [place] [address] Vidhya Padilla FNP [address] [place] [address] Social History Tobacco Use Types Packs/Day Years [...] Description 07/09/2024 2:30 PM EDT Office Visit [facility] [address] [place], [place] [phone] BrockLakshmi gale, OD [address] [place] [address] documented as of this encounter Visit Diagnoses Not on filedocumented in this encounter Additional Health Concerns Assessment Noted Time PHQ-9 Depression Total Score: 18 023 9:14 AM EDT documented as of this encounter Care Teams Paper Mill Superintendent Relationship Specialty Start Date End Date Vidhya Padilla FNP [address] [place] [address] PCP - General Family Medicine 02/07/22 10/08/23 Name, MD Les [address] [place] [address] PCP - General Internal Medicine 10/09/23 documented as of this encounter
--- OUTSIDE RECORDS SUMMARY | 2024-06-04 06:16 | XMS_ITS | Encounter Summary ---
Author Organization [facility] Address [address] [place] [address] Care Team Providers Care Career Development Consultant Name Role Phone Vidhya Padilla SYSTEMS INTEGRATION ENGINEER Primary Care Provider [phone] Reason for Visit * Reason Onset Date Comments PAC Appt Request - New 07/27/2022 Encounter Details Date Type Department Care Team ([facility] Contact Info) Description 07/27/2022 Telephone [facility] [address] [place] [phone] Telephone Intake, Staff PAC Appt Request - [...] available is February, please call patient with [facility] [employer] to schedule appt. documented in this encounter Plan of Treatment Upcoming Encounters Date Type Department Care Team (Late st Contact Info) Description 06/25/2024 8:00 AM EDT Appointment [facility] [address] [place] [address] Giovany Machado MD [address] [place] [address] Rafaela Beck 07/03/2024 9:00 AM EDT Office Visit [facility] Neurology [address] [place] [address] Mary Maria MD [address] [place] [address] documented as of this encounter Visit Diagnoses Not on filedocumented in this encounter Additional Health Concerns Infection Onset Date Last Indicated Resolved Time R/O C.diff 08/25/2022 08/25/2022 08/25/2022 3:19 PM EDT R/O C.diff 09/06/2022 09/06/2022 09/06/2022 12:3 1 PM EDT R/O C.diff 10/03/2022 10/03/2022 10/04/2022 4:31 AM EDT documented as of this encounter Care Teams Career Development Consultant Relationship Specialty Start Date End Date Vidhya Padilla NP [address] [place] [address] PCP - General Family Medicine 07/27/22 documented as of this encounter
--- OUTSIDE RECORDS SUMMARY | 2024-06-04 06:16 | XMS_ITS | Clinical Summary ---
Author Organization [facility] Address [address] [place] [address] Care Team Providers Care Metal Ceiling Builder Name Role Phone Vidhya Padilla LOADER OPERATOR Primary Care Provider [phone] Allergies Active Allergy Reactions Criticality Noted Date [...] - 03/31/2024 11:59 PM EST Hospital Encounter [facility] [address] [place] [address] Giovany Machado MD Rodriguez, Zuleyka M Intractable [...] Info) Description 06/25/2024 8:00 AM EDT Appointment [facility] [address] [place] [address] Giovany Machado MD [address] [place] [address] Rafaela Beck 07/03/2024 9:00 AM EDT Office Visit [facility] Neurology [address] [place] [address] Mary Maria MD [address] [place] [address] Health Maintenance Due Date Last Done Comments [...] patient's age to complete this topic Insurance [id number] Care Teams Metal Ceiling Builder Relationship Specialty Start Date End Date Vidhya Padilla NP [address] [place] [address] PCP - General Family Medicine 07/27/22
--- OUTSIDE RECORDS SUMMARY | 2024-06-04 06:16 | XMS_ITS | Referral Summary ---
Author Organization [facility] Address [address] [place] [address] Care Team Providers Care C.O.D. Clerk Name Role Phone Vidhya Padilla NP Primary Care Provider Encounters Date Type Department Care Team Description 03/31/2024 10:21 AM EST - 03/31/2024 11:59 PM [facility] Hospital Encounter [facility] [address] [place] [address] Giovany Machado MD Rodriguez, Zuleyka M Intractable [...] Info) Description 06/25/2024 8:00 AM EDT Appointment [facility] [address] [place] [phone] Giovany Machado MD [address] [place] [address] Rafaela Beck 07/03/2024 9:00 AM EDT Office Visit [facility] Neurology [address] [place] [address] Mary Maria MD [address] [place] [address] [place] [id number] Care Teams C.O.D. Clerk Relationship Specialty Start Date End Date Vidhya Padilla NP [address] [place] [address] PCP - General Family Medicine 07/27/22
--- OUTSIDE RECORDS SUMMARY | 2024-06-04 06:16 | XMS_ITS | Encounter Summary ---
Author Organization [employer] Address [address] [place] [address] [place] [address] Care Team Providers Care Petroleum Laboratory Technician Name Role Phone Claribel Grissom MD Primary Care Provider Vidhya Parker DERRICK HELPER Primary Care Provider [phone] Name, Les GARCIA Primary Care Provider Encounter Details Date Type Department Care Team (Late Contact Info) Description 01/25/2022 Telephone [facility] MEDICINE [address] [place] [address] Claribel Grissom MD Social History Tobacco Use [...] Upcoming Encounters Date Type Department Care Team ([facility] Contact Info) Description 07/09/2024 2:30 PM EDT Office Visit [facility] [address] [place] [address] Lakshmi Gutiérrez OD [address] [place] [address] documented as of this encounter Visit Diagnoses Not on filedocumented in this encounter Care Teams Petroleum Laboratory Technician Relationship Specialty Start Date End Date Claribel Grissom MD PCP - General Family Medicine 12/09/18 02/06/22 Vidhya Padilla FNP [address] [place], [place] [phone] PCP - General Family Medicine 02/07/22 10/08/23 Les Torres MD [address] [place] [address] PCP - General Internal Medicine 10/09/23 documented as of this encounter
--- OUTSIDE RECORDS SUMMARY | 2024-06-04 06:16 | XMS_ITS | Encounter Summary ---
Author Organization [employer] Address [address] [place] [address] [address] [place] [address] Care Team Providers Care Bobbin Winder Name Role Phone Vidhya Padilla Primary Care Provider [phone] NameLes MD Primary Care Provider [phone] Encounter Details Date Type Department Care Team (Late Contact Info) Description 03/21/2022 Orders Only [facility] [address] [place] [address] Vidhya Padilla FNP [address] [place] [address] Sigmoid diverticulitis (Primary Dx) Social [...] Description 07/09/2024 2:30 PM EDT Office Visit [facility] [address] [place] [address] Lakshmi Gutiérrez, OD [address] [place] [address] documented as of this encounter Visit Diagnoses Diagnosis Sigmoid diverticulitis- Primary Diverticulitis of colon (without mention of hemorrhage) documented in this encounter Care Teams Bobbin Winder Relationship Specialty Start Date End Date Vidhya Padilla FNP [address] [place] [address] PCP - General Family Medicine 02/07/22 10/08/23 Name, MD Les [address] [place] [address] PCP - General Internal Medicine 10/09/23 documented as of this encounter
--- OUTSIDE RECORDS SUMMARY | 2024-06-04 06:16 | XMS_ITS | Encounter Summary ---
Author Organization [employer] Address [address] [place] [address] [address] [place] [address] Care Team Providers Care Bandsaw Operator Name Role Phone Vidhya Padilla Primary Care Provider [phone] Name, Les GARCIA Primary Care Provider [phone] Encounter Details Date Type Department Care Team (Late Contact Info) Description 07/20/2022 Abstract [facility] MEDIC[facility] [address] [place] [address] Vidhya Padilla FNP [address] [place] [address] Social History Tobacco Use Types Packs/Day Years [...] Description 07/09/2024 2:30 PM EDT Office Visit [facility] OPTOM[facility] [address] [place] [address] Lakshmi Gutiérrez, OD [address] [place] [address] documented as of this encounter Procedures Procedure Name Priority Date/Time Associated Diagnosis Comments COLONOSCOPY Routine 05/10/2022 8:39 AM EDT documented in this encounter Results * Colonoscopy (05/10/2022 8:39 AM EDT) Colonoscopy Normal Normal Narrative Shanice Perez - 05/10/2022 8:39 AM EDT Recommended 3 year follow up ([facility]) us Historical Provider [facility] Edited Result - Final documented in this encounter Visit Diagnoses Not on filedocumented in this encounter Additional Health Concerns Assessment Noted Time PHQ-9 Depression Total Score: 18 023 9:14 AM EDT documented as of this encounter Care Teams Bandsaw Operator Relationship Specialty Start Date End Date Vidhya Padilla FNP [address] [place] [address] PCP - General Family Medicine 02/07/22 10/08/23 Les Torres MD [address] [place] [address] PCP - General Internal Medicine 10/09/23 documented as of this encounter
--- OUTSIDE RECORDS SUMMARY | 2024-06-04 06:16 | XMS_ITS | Encounter Summary ---
Author Organization [employer] Address [address] [facility] [address]t [place] [address] Care Team Providers Care Performing Arts Technicians Name Role Phone Vidhya Padilla Primary Care Provider [phone] Name, Les GARCIA Primary Care Provider [phone] Encounter Details Date Type Department Care Team ([facility] st Contact Info) Description 01/10/2023 Telephone [facility] MEDICINE [address] [place] [address] Vidhya Padilla FNP [address] [place] [address] Social History Tobacco Use Types Packs/Day Years [...] T/C to pt. For below message through [employer] id - [id number], pt. States she was treated for this [...] Line call received at this time. from [facility] calliing to repot patient is POSitive for CDIFF as resulted yesterday. requests that and be updated. Patient PCP Zane WEATHERS messaged as well. Dr. Veliz may be reached at [phone]. Please follow with . documented in this encounter Plan of Treatment Upcoming Encounters Date Type Department Care Team (Late st Contact Info) Description 07/09/2024 2:30 PM EDT Office Visit [facility] OPTOMETRY [address] [place] [address] Brock, Lakshmi, OD [address] [place] [address] documented as of this encounter Visit Diagnoses Not on filedocumented in this encounter Additional Health Concerns Assessment Noted Time PHQ-9 Depression Total Score: 18 023 9:14 AM EDT documented as of this encounter Care Teams Performing Arts Technicians Relationship Specialty Start Date End Date Vidhya Padilla FNP [address] [place] [address] PCP - General Family Medicine 02/07/22 10/08/23 Melissa, MD Les [address] [place] [address] PCP - General Internal Medicine 10/09/23 documented as of this encounter
--- OUTSIDE RECORDS SUMMARY | 2024-06-04 06:16 | XMS_ITS | Encounter Summary ---
Author Organization [facility] Address [address] [place] [address] Care Team Providers Care Quality Eng Name Role Phone Vidhya Padilla NP Primary Care Provider [phone] Encounter Details Date Type Department Care Team (Late Contact Info) Description 11/08/2020 Orders Only [facility] [address] [place] [address] Santy [place] MD [address] [place] [address] Social History Tobacco Use Types Packs/Day Years [...] Info) Description 06/25/2024 8:00 AM EDT Appointment [facility] Neurodiagnostics [address] [place] [address] Giovany Machado MD [address] [place] [address] Rafaela Beck 07/03/2024 9:00 AM EDT Office Visit [facility] Neurology [address] [place] [address] Mary Maria MD [address] [place] [address] documented as of this encounter Visit Diagnoses Not on filedocumented in this encounter Additional Health Concerns Infection Onset Date Last Indicated Resolved Time R/O C.diff 08/25/2022 08/25/2022 08/25/2022 3:19 PM EDT R/O C.diff 09/06/2022 09/06/2022 09/06/2022 12:3 1 PM EDT R/O C.diff 10/03/2022 10/03/2022 10/04/2022 4:31 AM EDT documented as of this encounter Care Teams Quality Eng Relationship Specialty Start Date End Date Vidhya Padilla NP [address] [place] [address] PCP - General Family Medicine 07/27/22 documented as of this encounter
--- OUTSIDE RECORDS SUMMARY | 2024-06-04 06:16 | XMS_ITS | Clinical Summary ---
Author Organization [employer] Address [address] [place] [address] Care Team Providers Care Engineer Booster And Exhauster Name Role Phone Name, Les GARCIA Primary Care Provider [phone] Allergies Active Allergy Reactions Criticality Noted Date [...] 04/18/2024 Population Health Risk Score Community Care [facility] (C3) Department [address] [phone] Provider, Population Health Generic 03/10/2024 Orders Only [facility] MEDICINE [address] [place] [address] Vidhya Padilla FNP from Last 3 Months [...] Description 07/09/2024 2:30 PM EDT Office Visit [facility] OPTOMETRY [address] [place] [address] Brock, Lakshmi, OD [address] [place] [address] Health Maintenance Due Date Last Done Comments [...] Vitamin B5 (Pantothenic Acid) 41 <275 ng/mL [facility] Comment:This test was thomas iraheta and its analyticalperformance characteristics have been determinedby [facility] [place], [place].It has not been cleared or approved by the FDA. Thisassay has been validated pursuant to the CLIAregulations and is used for clinical purposes.THIS TEST WAS PERFORMED AT:[facility] [employer] [id number] [place] [address]NHMPBDZIZZY HOWARD MD,PHD 04/28/2024 3:45 PM EDT 04/28/2024 3:45 PM EDT Generic External Data Provider LAB BLOOD ORDERAB LES Final Result Performing Organization Address [facility] Co de Phone Number [facility] [address] [place] [address] [phone] * Vitamin K1 (04/28/2024 3:45 PM EDT) Vitamin K1 821 130 - 1500 pg/mL [facility] Comment:This test was develo ped and its analytical performancecharacteristics have been determined by [facility] [place], [place]. It hasnot been cleared or approved by the U.S. Food and DrugAdministration. This assay has been validated pursuantto the CLIA regulations and is used for clinicalpurposes.THIS TEST WAS PERFORMED AT:[employer] [id number] [place] [address]SCHKFXNIZZY HOWARD MD,PHD 04/28/2024 3:45 PM EDT 04/28/2024 3:45 PM EDT Generic External Data Provider LAB BLOOD ORDERAB LES Final Result Performing Organization Address [facility] Co de Phone Number [facility] [address] [place] [phone] * (ABNORMAL) Vitamin D, 25-Hydroxy, Total, Immunoassay (04/28/2024 3:45 PM EDT) Vitamin D 25-OH Total 19.1(L) >30 ng/mL [facility] Comment: Health Based Reference Values*< 20 ??ng/mL ??Pvogdttnv62-68 ng/mL ??Insufficient> 30 ??ng/mL ??Sufficient*Hermilo DIAZ. N [...] Provider LAB BLOOD ORDERAB LES Final Result [facility] [address] [place] [phone] * Vitamin B12 (Cobalamin) and Folate Panel, Serum (04/28/2024 3:45 PM EDT) Vitamin B12 277 200 - 900 pg/mL [facility] Comment:NORMAL 200-900 PG/ML INDETERMINATE 160-199 PG/ML DEFICIENT < 160 PG/ML Folate 12.1 > or = 4.0 ng/mL [facility] Comment:Reference Values:> o r = 4.0 ng/mL< 4.0 ng/mL suggests folate deficiency Methotrexate, aminopterin and folinic acid(leucovorin) are chemotherapeutic agents whose molecularstructures are similar to folate; therefore, the Architectfolate assay cannot be used for patients using these drugs. 04/28/2024 3:45 PM EDT 04/28/2024 3:45 PM EDT Generic External Data Provider LAB BLOOD ORDERAB LES Final Result Performing Organization Address [facility] Co de Phone Number [facility] [address] [place] [phone] * Zinc (04/28/2024 3:45 PM EDT) Zinc 69 60 - 130 mcg/dL [facility] Comment:This test was develo ped and its analytical performancecharacteristics have been determined by [facility], [place]. It hasnot been cleared or approved by the .S. Food and DrugAdministration. This assay has been validated pursuantto the CLIA regulations and is used for clinicalpurposes.THIS TEST WAS PERFORMED AT:[facility]/[id number] [place] [address]CFVIMJUIZZY HOWARD MD,PHD 04/28/2024 3:45 PM EDT 04/28/2024 3:45 PM EDT [facility] External Data Provider LAB BLOOD ORDERAB LES Final Result Performing Organization Address [facility] de Phone Number [facility] [address] [place] [phone] * Vitamin A (04/28/2024 3:45 PM EDT) Vitamin A (Retinol) 43 38 - 98 mcg/dL [facility] Comment:Vitamin supplementat ion within 24 hours prior toblood draw may affect the accuracy of the results.This test was developed and its analytical performancecharacteristics have been determined by [facility], [place]. It hasnot been cleared or approved by the U.S. Food and DrugAdministration. This assay has been validated pursuantto the CLIA regulations and is used for clinicalpurposes.THIS TEST WAS PERFORMED AT:[employer]/[id number] [place] [address]MWHEDZXIZZY HOWARD MD,PHD 04/28/2024 3:45 PM EDT 04/28/2024 3:45 PM EDT us Generic External Data Provider LAB BLOOD ORDERAB LES Final Result [facility] [address] [place] [phone] [phone] * Vitamin B3 (Niacin and Metabolite) (04/28/2024 3:45 PM EDT) Nicotinic Acid <20 see note ng/mL [facility] Comment:Due to the large elida iability [...] and its analyticalperformance characteristics have been determinedby [facility] [place], [place].It has not been cleared or approved by the FDA. Thisassay has been validated pursuant to the CLIAregulations and is used for clinical purposes. Nicotinamide <20 see note ng/mL [facility] Comment:Nicotinamide is a me tabolite of [...] and its analyticalperformance characteristics have been determinedby [facility] [place].It has not been cleared or approved by the FDA. Thisassay has been validated pursuant to the CLIAregulations and is used for clinical purposes.THIS TEST WAS PERFORMED AT:[facility] [id number] [place] [id number] HOWARD MD,PHD 04/28/2024 3:45 PM EDT 04/28/2024 3:45 PM EDT Generic External Data Provider LAB BLOOD ORDERAB LES Final Result Performing Organization Address [facility] Number [facility] [address] [place] [phone] * Vitamin C (04/28/2024 3:45 PM EDT) [facility] Vitamin C 0.7 0.3 - 2.7 mg/dL [facility] Comment:This test was develo ped and its analyticalperformance characteristics have been determinedby [facility] [place].It has not been cleared or approved by the FDA. Thisassay has been validated pursuant to the CLIAregulations and is used for clinical purposes.THIS TEST WAS PERFORMED AT:[facility] [id number] [place] [address]NKUTCGYIZZY HOWARD MD,PHD 04/28/2024 3:45 PM EDT 04/28/2024 3:45 PM EDT Generic External Data Provider LAB BLOOD ORDERAB LES Final Result Performing Organization Address [facility] Co de Phone Number [facility] [address] [place] [phone] * Vitamin E (Tocopherol) (04/28/2024 3:45 PM EDT) Vitamin E, Alpha-Tocopherol 16.4 5.7 - 19.9 mg/L [facility] Comment:Levels of alpha-toco pherol <5 mg/L are consistentwith Vitamin E deficiency in adults. Vitamin E, Ciei-Atwjq-Jbflefdmir 1.3 <=4.3 mg/L [facility] Comment:Vitamin supplementat ion within 24 hours prior toblood draw may affect the accuracy of the results.This test was developed and its analytical performancecharacteristics have been determined by [employer], [place]. It hasnot been cleared or approved by the U.S. Food and DrugAdministration. This assay has been validated pursuantto the CLIA regulations and is used for clinicalpurposes.THIS TEST WAS PERFORMED AT:[employer] [address] [address]IDXUHHBIZZY HOWARD MD,PHD 04/28/2024 3:45 PM EDT 04/28/2024 3:45 PM EDT us Generic External Data Provider LAB BLOOD ORDERAB LES Final Result [facility] [address] [place] [phone] * Vitamin B1 (04/28/2024 3:45 PM EDT) Pathologist [facility] Vitamin B1 10 8 - 30 nmol/L [facility] Comment:Vitamin supplementat ion within 24 hours prior toblood draw may affect the accuracy of the results.This test was developed and its analytical performancecharacteristics have been determined by [employer], [place]. It hasnot been cleared or approved by the U.S. Food and DrugAdministration. This assay has been validated pursuantto the CLIA regulations and is used for clinicalpurposes.THIS TEST WAS PERFORMED AT:[employer] [id number] [place] [address]HKIQPVQIZZY HOWARD MD,PHD 04/28/2024 3:45 PM EDT 04/28/2024 3:45 PM EDT us Generic External Data Provider LAB BLOOD ORDERAB LES Final Result Performing Organization Address [facility] Co de Phone Number [facility] [address] [place] [phone] * Vitamin B6, Plasma (04/28/2024 3:45 PM EDT) Vitamin B6 18.6 2.1 - 21.7 ng/mL [facility] Comment:Vitamin supplementat ion within 24 hours prior toblood draw may affect the accuracy of the results.This test was developed and its analytical performancecharacteristics have been determined by [facility] [place], [place]. It hasnot been cleared or approved by the U.S. Food and DrugAdministration. This assay has been validated pursuantto the CLIA regulations and is used for clinicalpurposes.THIS TEST WAS PERFORMED AT:[employer]/[facility] [place] [address]WOBFVDIIZZY HOWARD MD,PHD 04/28/2024 3:45 PM EDT 04/28/2024 3:45 PM EDT Generic External Data Provider LAB BLOOD ORDERAB LES Final Result Performing Organization Address [facility] Co de Phone Number [facility] [address] [place] [phone] * Phosphate (As Phosphorus) (04/28/2024 3:45 PM EDT) Phosphorus 3.9 2.7 - 4.5 mg/dL [facility] 04/28/2024 3:45 PM EDT 04/28/2024 3:45 PM EDT Generic External Data Provider LAB BLOOD ORDERAB LES Final Result Performing Organization Address [facility] de Phone Number [facility] [address] [place] [phone] * Magnesium (04/28/2024 3:45 PM EDT) Magnesium 2.1 1.6 - 2.6 mg/dL [facility] 04/28/2024 3:45 PM EDT 04/28/2024 3:45 PM EDT Generic External Data Provider LAB BLOOD ORDERAB LES Final Result Performing Organization Address [facility] de Phone Number [facility] [address] [place] [phone] * Ferritin (04/28/2024 3:45 PM EDT) Ferritin 41 10 - 250 ng/mL [facility] 04/28/2024 3:45 PM EDT 04/28/2024 3:45 PM EDT Generic External Data Provider LAB BLOOD ORDERAB LES Final Result Performing Organization Address [facility] de Phone Number [facility] [address] [place] [phone] * BI Mammogram Screening Tomosynthesis Bilateral (03/10/2024 12:48 PM EST) Anatomical Region Laterality Modality Breast Bilateral Mammography 03/10/2024 12:4 8 PM EST Narrative 03/16/2024 5:47 PM EST ? [facility] [place] ? [address] ?[place] [address] ? Mammography Report ? Signed ? Patient: Merritt,Kacy ?MR#: [id number] ?? 9 ? : 1965 ?Acct:[id number] ? Age/Sex: 58 / F ?ADM Date: 02/03/25 ? Loc: HO.MAMMO ? Attending Dr: Vidhya Padilla TRANSIT POLICE OFFICER ? Ordering Physician: Vidhya Padilla TRANSIT POLICE OFFICER ?Results: 1Negativ ?? e ? Date of Service: 03/10/24 ?Follow Up: 1 Year From Orig ?? inal Mammogram ? Procedure(s): MM tomosynthesis screening BI ?? Accession Number(s): [id number] ? cc: Vidhya Padilla TRANSIT POLICE OFFICER ? EXAMINATION: ?? MM SCREENING DIGITAL BREAST [...] DD/ 1248 ? TD/TT: 03/10/24 1308 ? Senior Hardware Engineer: ? Procedure Note Donelida, Image - 03/16/[address] [place] [facility] [address] [place] [address] Mammography Report Signed Patient: Meghan Merritt#: [id number] 9 : 1965Acct:[id number] Age/Sex: 58 / FADM Date: 03/10/24 Loc: HO.MAMMO Attending Dr: Vidhya Padilla TRANSIT POLICE OFFICER Ordering Physician: Vidhya Padilla NPResults: 1Negativ e Date of Service: 03/10/24Follow Up: 1 Year From Orig inal Mammogram Procedure(s): MM tomosynthesis screening BI Accession Number(s): [id number] cc: Vidhya Padilla NP EXAMINATION: MM SCREENING [...] 03/16/24 1744 DD/ 1248 TD/TT: 03/10/24 1308 Senior Hardware Engineer: Vidhya Padilla [employer] PLAYER IMG BI PROCEDURES Edited Result - Final * Hepatitis Panel, General (03/14/2023 10:20 AM EST) Hepatitis A IgM Nonreactive Nonreactive [facility] Comment:IgM antibodies to QUEZADA V not detected; does not exclude earlyacute or recovered HAV infection. ~Hepatitis B Surface Antibody NONREACTIVE Nonreactive [facility] Comment:Nonreactive: < 8.00 mIU/mL Hepatitis B Core Antibody Nonreactive Nonreactive [facility] Hepatitis C Antibody Nonreactive Nonreactive [facility] Comment:Antibodies to HCV no t detected; does not exclude early acuteHCV infection. Hepatitis B Surface Ag Negative Negative [facility] 03/14/2023 10:2 0 AM EST 03/14/2023 10:26 AM EST Generic External Data Provider LAB BLOOD ORDERAB LES Final Result [facility] [address] [place] [phone] * Colonoscopy (05/10/2022 8:39 AM EDT) Pathologist [facility] Colonoscopy Normal Normal Narrative Shanice Perez - 05/10/2022 8:39 AM EDT Recommended 3 year follow up ([facility]) us Historical Provider HEALTH MAINTENANCE Edited Result [...] ?? Eliceo AMATO et al. ROLDAN. 2013;310(19): 2310-9465 ?? (http://education.Reds10/faq/QYM678) Non-HDL Cholesterol 181(H) <130 mg/dL (calc) [facility] Comment: For patients with diabetes plus 1 major ASCVD risk ?? factor, treating to a non-HDL-C goal of <100 mg/dL ?? (LDL-C of <70 mg/dL) is considered a therapeutic ?? option. Triglycerides 126 <150 mg/dL [facility] 08/05/2021 9:50 AM EDT us Claribel Grissom MD LAB BLOOD ORDERABLES Final R esult [facility] [address] from Last 3 Months or Most Recently Relevant to Health Maintenance Insurance [employer] C3 Care Teams Engineer Booster And Exhauster Relationship Specialty Start Date End Date Name, MD Les [address] [place] [phone] PCP - General Internal Medicine 10/09/23
--- OUTSIDE RECORDS SUMMARY | 2024-06-04 06:16 | XMS_ITS | Encounter Summary ---
Author Organization [employer] Address [address] [place] [address] 7t [place] [address] Care Team Providers Care Warrant Clerk Name Role Phone Vidhya Padilla Primary Care Provider [phone] Name, Les GARCIA Primary Care Provider [phone] Reason for Visit * Reason Onset Date Comments Referral 03/01/2022 Encounter Details Date Type Department Care Team (Late st Contact Info) Description 03/01/2022 Telephone [facility] MEDICINE [address] [place] [address] Vidhya Padilla FNP [address] [place], [place] [phone] Referral Social History Tobacco Use Types Packs/Day [...] 03/01/2022 2:52 PM EST Telephone call to [facility] urology in regards to pt's referral. Pt needs referral for cyst in kidney andabdominal pain per [facility]. N28.1 and R10.9 respectively. * Telephone Encounter - Nolan Carlisle - 03/01/2022 9:03 AM EST Tc from pt requesting a referral to [facility]. Pt states she received a call and she was advised to request a referral do to something in her Left Kidney. Crozer Operator was attempting togather details, pt was unable to provide details. 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
[2024-07-02 14:40] VITALS: BMI 27.5
[2024-07-04] VITALS (9 sets, daily range): BP systolic 92–115; BP diastolic 48–73; PULSE 51–67; RESP 16–18; TEMP 36.1–36.4; O2SAT 96–100; BMI 28.3
[2024-07-04] MEDS: Lactated Ringers 1,000 ML 100 ML IVCONT (10:45)
--- NOTE | 2024-07-04 11:28 | HO.ANESPROP2 ---
Documented by User: Nica Vaca NP 07/03/24 09:43 HPI - Anesthesia Eval Consult details Narrative: 59yo F for EUA, Hemorrhoidectomy PMFSH Active Problems Active Problems: All Active Problems C. difficile enteritis (Acute) Hemorrhoids (Acute) Microscopic hematuria (Acute) Encounter for well woman exam with routine gynecological exam (Acute) Incontinence in female (Acute) Renal cyst (Acute) Encounter to discuss test results (Acute) Abdominal mass (Acute) Pelvic pain in female (Acute) Encounter for annual routine gynecological examination (Acute) Abdominal cramping (Acute) Epigastric pain (Acute) Bleeding hemorrhoids (Acute) Chronic abdominal pain (Acute) Diverticular disease of colon (Acute) Irritable bowel syndrome with diarrhea (Acute) Clostridioides difficile diarrhea (Acute) Tubular adenoma of colon (Acute) Left lower quadrant pain (Acute) Diarrhea (Acute) Acute diverticulitis (Acute) Past Medical History Medical History (Updated 07/04/24 @ 10:20 by Kathleen Andrade RN) Kidney anomaly, congenital Bleeding hemorrhoids Chronic abdominal pain LLQ cramping Diverticular disease of colon Clostridioides difficile diarrhea Colitis Left lower quadrant pain Tubular adenoma of colon Irritable bowel syndrome with diarrhea Sigmoid diverticulitis Acute diverticulitis Diarrhea Diverticulitis Abdominal pain GERD (gastroesophageal reflux disease) Lower abdominal pain Chronic idiopathic constipation Constipation GERD (gastroesophageal reflux disease) Family History Family History Father Cancer HTN (hypertension) Mother HTN (hypertension) Hyperthyroidism Migraine headache Maternal Grandmother History of breast cancer Paternal Grandmother History of breast cancer Family/Other Colon cancer Paternal Aunt Ovarian cancer Family history of problems with anesthesia: No Surgical History Surgical History (Updated 07/04/24 @ 10:22 by Kathleen Andrade RN) History of surgery History of surgery History of intestinal surgery History of partial hysterectomy (~09/2006) Hx of hemorrhoidectomy (2008) Hx of colonoscopy (11/14/23) History of esophagogastroduodenoscopy (EGD) (11/14/23) History of Problems with Anesthesia: No Social History Social History Household Members: Family and None Housing: Apartment Are you a primary family day care provider to a significant other at home: No Do you presently have visiting nurse or other home services: No Alcohol intake: never Patient Tobacco Use Status: Never used Tobacco Use of substances other than those prescribed or required for medical reasons: No Are you DNR?: No Advance Directives: No Advance Directives Information Provided: Yes Patient : No : No Poor oral hygiene: No service: No Current occupational status: disabled Current occupational exposures/hazards: No Meds Allergies Allergy/AdvReac Type Severity Reaction Status Date / Time Penicillins [PENICILLINS] Allergy Intermediate HIVES/SWELL Verified 06/09/24 14:13 ING bupropion [From Wellbutrin] Allergy hives, Verified 06/09/24 14:13 swelling Home Medications ?Medication ?Instructions ?Recorded ?Confirmed ?Last Taken ?Type lisinopril 20 mg tablet 20 mg PO DAILY 11/25/21 07/02/24 12/09/22 History metoprolol tartrate 25 mg tablet 25 mg PO BID 11/25/21 07/02/24 07/04/24 History nortriptyline 50 mg capsule 100 mg PO BEDTIME 11/25/21 07/02/24 01/10/22 History sumatriptan succinate 100 mg tablet 100 mg PO DAILY PRN migraine 11/25/21 07/02/24 01/11/22 History buspirone 15 mg tablet 15 mg PO BID 01/01/24 07/02/24 Unknown History galcanezumab-gnlm 120 mg/mL mg subcut 01/01/24 Unknown History subcutaneous syringe (Emgality) eszopiclone 2 mg tablet 2 mg PO BEDTIME sleep disorder 04/28/24 07/02/24 Unknown History aripiprazole 15 mg tablet 15 mg PO QAM 06/09/24 07/02/24 Unknown History Exam Height,Weight and Vital Signs: Height 5 ft 4 in Weight 72.575 kg Pertinent Lab Results Pertinent Lab Results: Laboratory Tests 11/07/23 16:14 WBC 6.2 Hgb 11.7 L Hct 36.7 L Plt Count 313 Sodium 141 Potassium 4.4 Chloride 106 Carbon Dioxide 29 BUN 10 Creatinine 0.81 Assessment and Plan Assessment Anesthesia Assessment: Chart Reviewed Final Anesthetic Review Family History of Problems with Anesthesia: No History of Problems with Anesthesia: No Documented by User: Tennille Brian DO 07/04/24 11:29 [facility] Past Medical History Medical History (Updated 07/04/24 @ 10:20 by Kathleen Andrade, RN) Kidney anomaly, congenital Bleeding hemorrhoids Chronic abdominal pain LLQ cramping Diverticular disease of colon Clostridioides difficile diarrhea Colitis Left lower quadrant pain Tubular adenoma of colon Irritable bowel syndrome with diarrhea Sigmoid diverticulitis Acute diverticulitis Diarrhea Diverticulitis Abdominal pain GERD (gastroesophageal reflux disease) Lower abdominal pain Chronic idiopathic constipation Constipation GERD (gastroesophageal reflux disease) Family History Family History Father Cancer HTN (hypertension) Mother HTN (hypertension) Hyperthyroidism Migraine headache Maternal Grandmother History of breast cancer Paternal Grandmother History of breast cancer Family/Other Colon cancer Paternal Aunt Ovarian cancer Family history of problems with anesthesia: No Surgical History Surgical History (Updated 07/04/24 @ 10:22 by Kathleen Andrade RN) History of surgery History of surgery History of intestinal surgery History of partial hysterectomy (~09/2006) Hx of hemorrhoidectomy (2008) Hx of colonoscopy (11/14/23) History of esophagogastroduodenoscopy (EGD) (11/14/23) History of Problems with Anesthesia: No Social History Social History Household Members: Family and None Housing: Apartment Are you a primary family day care provider to a significant other at home: No Do you presently have visiting nurse or other home services: No Alcohol intake: never Patient Tobacco Use Status: Never used Tobacco Use of substances other than those prescribed or required for medical reasons: No Are you DNR?: No Advance Directives: No Advance Directives Information Provided: Yes Patient : No : No Poor oral hygiene: No service: No Current occupational status: disabled Current occupational exposures/hazards: No Meds Allergies Allergy/AdvReac Type Severity Reaction Status Date / Time Penicillins [PENICILLINS] Allergy Intermediate HIVES/SWELL Verified 06/09/24 14:13 ING bupropion [From Wellbutrin] Allergy hives, Verified 06/09/24 14:13 swelling Home Medications ?Medication ?Instructions ?Recorded ?Confirmed ?Last Taken ?Type lisinopril 20 mg tablet 20 mg PO DAILY 11/25/21 07/02/24 12/09/22 History metoprolol tartrate 25 mg tablet 25 mg PO BID 11/25/21 07/02/24 07/04/24 History nortriptyline 50 mg capsule 100 mg PO BEDTIME 11/25/21 07/02/24 01/10/22 History sumatriptan succinate 100 mg tablet 100 mg PO DAILY PRN migraine 11/25/21 07/02/24 01/11/22 History buspirone 15 mg tablet 15 mg PO BID 01/01/24 07/02/24 Unknown History galcanezumab-gnlm 120 mg/mL mg subcut 01/01/24 Unknown History subcutaneous syringe (Emgality) eszopiclone 2 mg tablet 2 mg PO BEDTIME sleep disorder 04/28/24 07/02/24 Unknown History aripiprazole 15 mg tablet 15 mg PO QAM 06/09/24 07/02/24 Unknown History Exam Exam Date and Time: 07/04/24 1128 Height,Weight and Vital Signs: Height 5 ft 4 in Weight 72.575 kg Vital Signs Temperature 97.0 F 07/04/24 10:35 Pulse Rate 51 07/04/24 10:35 Respiratory Rate 16 07/04/24 10:35 Blood Pressure 113/61 07/04/24 10:35 Pulse Oximetry 96 07/04/24 10:35 Oxygen Delivery Method Room Air 07/04/24 10:35 Temperature 97.0 F 07/04/24 10:35 Pulse Rate 51 07/04/24 10:35 Respiratory Rate 16 07/04/24 10:35 Blood Pressure 113/61 07/04/24 10:35 Pulse Oximetry 96 07/04/24 10:35 Oxygen Delivery Method Room Air 07/04/24 10:35 Airway Mallampati Class: II TM Dist: >3cm Neck ROM: Full Loose/Missing/Broken Teeth: No (patient denies any loose or broken teeth) Heart: S1S2 Lungs: CTAB Assessment and Plan Assessment Anesthesia Assessment: Anesthesia Plan Discussed and Chart Reviewed Final Anesthetic Review Family History of Problems with Anesthesia: No History of Problems with Anesthesia: No NPO: Yes ASA Class: II Final Preanesthetic Review: No Changes in Pt Med Stat, Meds/Allgs Chart Reviewed, Consent Obtained/Reviewed (director of placement at bedside for translation) and Anes Risks/Benef Reviewed Patient Risk: Low Procedure Risk: Low Anesthetic Plan Anesthetic Plan: GA and Agree w/ Assess. and Plan Disposition: Standard PACU
--- NOTE | 2024-07-04 12:19 | MHC.SHP ---
Pre-Procedural Eval Section A - 24 Hr Update-Section A only Date of Service: 07/04/24 Section B - Complete if H&P > 30 days Chief Complaint: Unspecified hemorrhoids Details of Present Illness: Hemorrhoids, with bleeding; patient wants to proceed with hemorrhoidectomy Relevant Family History (Specify if Yes): No Relevant Social History: None Present Medications: see Short Stay Collaborative assessment Medical History: Significant History (IBS, diverticular disease) Allergies: Allergies Allergy/AdvReac Type Severity Reaction Status Date / Time Penicillins [PENICILLINS] Allergy Intermediate HIVES/SWELL Verified 06/09/24 14:13 ING bupropion [From Wellbutrin] Allergy hives, Verified 06/09/24 14:13 swelling Review of Systems Sugical H&P ROS: Negative: Constitution, Cardiovascular and Respiratory Exam Surgical H&P Exam: Normal: Heart, Normal: Lungs and Normal: Abdomen Exam Comment: Hemorrhoids Plan Diagnosis/Plan: Unchanged I have reviewed the history and physical and performed a pertinent physical examination on my patient. No changes have occurred unless specified. Time Spent With Patient Time: Total time managing care of this patient today ____ minutes.
--- NOTE | 2024-07-04 13:21 | W.PM.OPN ---
Operative Note Operative Note Date of Service: 07/04/24 Narrative: Preop diagnosis: External hemorrhoids with pain and bleeding Postop diagnosis: The same Procedure: Exam under anesthesia hemorrhoidectomy x1 column Surgeon: Fritz Veliz MD The patient is a year old female who describes chronic problems with the hemorrhoids including swelling, pain and bleeding. Examination had shown a large external hemorrhoid column on the left side posteriorly. She wanted to proceed with hemorrhoidectomy. She understood the technique of the planned procedure as well as the risks, benefits, and alternatives. She was brought to the operating room and placed in prone noel-knife position under general anesthesia via endotracheal tube. The buttocks were retracted with wide tape laterally. The perianal area was prepped and draped in the usual sterile fashion. A surgical time-out was done. The patient received Cefotan 2 g IV preoperatively Examination of the anal orifice showed this external hemorrhoidal column on the left. I inserted the Hal Wolf retractor. I examined the anal canal circumferentially. There were other smaller hemorrhoidal columns mostly external on the right. There were no lesions in the anal canal. There was no fissure or ulceration I applied a Vinson grasper on the hemorrhoidal column on the left. I made a [id number] stitch at the pedicle using a chromic 3-0. I made an incision around this hemorrhoidal column to the perianal skin 15. I excised this hemorrhoidal column above the plane of the sphincters with scissors. I closed this incision with a running chromic 3-0 stitch with additional hemostatic [id number] sutures placed Hemostasis was confirmed, I infiltrated the perianal area with Marcaine 0.5% for postop analgesia The procedure was then completed The patient tolerated the procedure well. There were no immediate complications. Initial and final counts of sponges and instruments were correct. Estimated blood loss was about 20 cc The patient is extubated without difficulty and transferred to the recovery room with stable vital signs.
[2024-07-04] MEDS: Haloperidol Lactate 5 MG/ML VIAL 1 MG IVPUSH (13:49)
[2024-07-04] MEDS: HYDROmorphone HCl 0.5 MG/0.5 ML SYRINGE IVPUSH (13:56)
== END 2024-07-04 15:02 | disposition home or self-care (01) ==
PROVIDERS: PCP Nurse Practitioner Family; Visit Provider Surgery
PROC: (CPT 46999; principal; 2024-07-04 13:50)
DX: K64.9 Unspecified hemorrhoids (principal); K62.89 Other specified diseases of anus and rectum; K64.4 Residual hemorrhoidal skin tags; G89.29 Other chronic pain; R10.9 Unspecified abdominal pain; R10.32 Left lower quadrant pain; K58.0 Irritable bowel syndrome with diarrhea; K59.04 Chronic idiopathic constipation; A04.72 Enterocolitis due to Clostridium difficile, not specified as recurrent; K57.30 Diverticulosis of large intestine without perforation or abscess without bleeding; Z87.19 Personal history of other diseases of the digestive system; Z88.0 Allergy status to penicillin; Z88.8 Allergy status to other drugs, medicaments and biological substances; Z98.890 Other specified postprocedural states
CPT/HCPCS: 46999; 88304; J0131; J1100; J1171; J1630; J1885; J2003; J2405; J2704; J2795; J3010

== ENCOUNTER → 2024-07-04 08:32 | Outpatient (BNV) | payer MEDICAID, SELFPAY | PROVIDERS: PCP Nurse Practitioner Family; Visit Provider Surgery | DX: K64.8 Other hemorrhoids (principal) | CPT/HCPCS: 46999 ==

== ENCOUNTER 2024-07-17 10:23 | Outpatient (AMB) | payer MEDICAID, SELFPAY ==
--- NOTE | 2024-07-17 10:35 | MHC.OFFVIS ---
Vital Signs 07/17/24 10:42 Weight 167 lb BP 117/69 Blood Pressure Location Rt brachial Position Standing Pulse 64 Intake Visit Reasons: S/P hemorrhoidectomy Intake Note: Patient here s/p hemorrhoidectomy x1 column on 06-24-2024. Patient c/o: severe pain, bleeding, diarrhea, yellowish discharge that has bad smell. Patient developed fever thinks surgical site is infected. Local Announcer Required: No Accompanied by: Self / Same As Patient Allergies Penicillins [PENICILLINS] Allergy (Intermediate, Verified 07/17/24 10:35) HIVES/SWELLING bupropion [From Wellbutrin] Allergy (Verified 07/17/24 10:35) hives, swelling HPI HPI S/P hemorrhoidectomy: Details: She underwent hemorrhoidectomy x1 column last 07/04/2024. She tolerated the procedure well. She currently denies significant complaints although admits to some pain which has been improving. She does complain of chronic diarrhea and she says that this aggravates her pain. [facility] Medical History Kidney anomaly, congenital Bleeding hemorrhoids Chronic abdominal pain LLQ cramping Diverticular disease of colon Clostridioides difficile diarrhea Colitis Left lower quadrant pain Tubular adenoma of colon Irritable bowel syndrome with diarrhea Sigmoid diverticulitis Acute diverticulitis Diarrhea Diverticulitis Abdominal pain GERD (gastroesophageal reflux disease) Lower abdominal pain Chronic idiopathic constipation Constipation GERD (gastroesophageal reflux disease) Surgical History History of surgery History of surgery History of intestinal surgery History of partial hysterectomy (~09/2006) Hx of hemorrhoidectomy (2008) Hx of colonoscopy (11/14/23) History of esophagogastroduodenoscopy (EGD) (11/14/23) Family History Father Cancer HTN (hypertension) Mother HTN (hypertension) Hyperthyroidism Migraine headache Maternal Grandmother History of breast cancer Paternal Grandmother History of breast cancer Family/Other Colon cancer Paternal Aunt Ovarian cancer Social History Household Members: Family and None Housing: Apartment Are you a primary healthcare network consultant to a significant other at home: No Do you presently have visiting nurse or other home services: No Alcohol intake: never Patient Tobacco Use Status: Never used Tobacco service: No Current occupational status: disabled Current occupational exposures/hazards: No Female Reproductive History Menstrual Age of Menarche: 7 Review of Systems Const Denies chills and Denies fever(s) Physical Exam Const General: comfortable and no acute distress Resp Effort & Inspection: normal respiratory effort GI Other: Rectal exam shows the hemorrhoidectomy sites to be well healing, not infected Assessment & Plan Assessment & Plan (1) Hemorrhoids: Code(s): K64.9 - Unspecified hemorrhoids Category: Medical Plan: Status post hemorrhoidectomy. Her incision is well healing. Path report confirms hemorrhoidal tissue I advised her on continuing with the hot Sitz baths and avoiding straining and constipation down the line. Her main complaint is actually chronic diarrhea so I am going to send her prescription for Lomotil. She can otherwise follow up on a p.r.n. basis Coding Level of Care Code Global (16571) Diagnoses Hemorrhoids K64.9
[2024-07-17 10:42] VITALS: BP 117/69; PULSE 64
--- OUTSIDE RECORDS SUMMARY | 2024-07-17 12:05 | XMS_ITS | Clinical Summary ---
Author Organization [facility] Address [address] [place] [address] Care Team Providers Care Senior Director Marketing Name Role Phone Melyssa Alonso MD Primary [...] Take 100 mg by mouth Active Immunizations Immunization Administration Dates Next Due COVID-19, mRNA (Moderna [...] Zoster (Zostavax) Discontinued Procedures * Due to [place] [employer] law, this organization might not be sharing negative HIV tests. Procedure Name Priority Date/Time Associated Diagnosis Comments COMPREHENSIVE EYE EXAM 07/15/2020 from Last 3 Months or Most Recently Relevant to Health Maintenance Results * Due to [facility] law, this organization might not be sharing negative HIV tests. * COMPREHENSIVE EYE EXAM (07/15/2020) Fawad VALENCIA PROCEDURE Final Result from Last 3 Months or Most Recently Relevant to Health Maintenance Insurance MEDICAID MEDICAID Care Teams Senior Director Marketing Relationship Specialty Start Date End Date Melyssa Alonso MD [address] [address] PCP - General Internal Medicine 07/15/20
== END 2024-07-17 10:50 | disposition home or self-care (01) ==
LOC: HO.HGS 10:24
PROVIDERS: PCP Nurse Practitioner Family; Visit Provider Surgery
DX: K64.9 Unspecified hemorrhoids (principal)
CPT/HCPCS: 99024

== ENCOUNTER → 2024-07-17 10:23 | Outpatient (BNVA) | payer MEDICAID, SELFPAY | PROVIDERS: PCP Nurse Practitioner Family; Visit Provider Surgery | DX: K64.9 Unspecified hemorrhoids (principal); Z98.890 Other specified postprocedural states; R19.7 Diarrhea, unspecified | CPT/HCPCS: 99212 ==

== ENCOUNTER 2024-10-02 08:16 | Outpatient (REF) | payer MEDICAID, SELFPAY ==
[2024-10-02 15:35] LABS: Bacterial Vaginosis PCR NEGATIVE (Negative); Candida Group PCR NOT DETECTED (Not Detect); Candida glab krusei PCR NOT DETECTED (Not Detect); Trichomonas vaginalis PCR NOT DETECTED (Not Detect)
== END 2024-10-02 08:17 | disposition home or self-care (01) ==
LOC: HO.LAB 08:16
PROVIDERS: PCP Nurse Practitioner Family; Visit Provider Advanced Practice Midwife
DX: N94.89 Other specified conditions associated with female genital organs and menstrual cycle (principal); R19.00 Intra-abdominal and pelvic swelling, mass and lump, unspecified site; R10.2 Pelvic and perineal pain; R31.29 Other microscopic hematuria
CPT/HCPCS: 81003; 81515; 87086

== ENCOUNTER 2024-10-02 08:16 | Outpatient (AMB) | payer MEDICAID, SELFPAY ==
--- OUTSIDE RECORDS SUMMARY | 2024-09-30 08:33 | XMS_ITS | Encounter Summary ---
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 Santy Madison MD [address] [place] [address] Phone: tel: fax: [facility] [address] [place] [address] Phone: tel: Referral ID Status Reason Start Date Expiration Date Visits Re quested Visits Authorized [id number] Closed 07/17/2019 12/20/2025 6 6 Encounter Details Date Type Department Care Team (Latest Contact Info) Description 09/30/2024 8:33 AM EDT - 09/30/2024 11:59 PM EDT Hospital Encounter [facility] [address] [place] [address] Giovany Machado MD [address] [place] [address] Jhonny Carroll 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 dicyclomine (BENTYL) 10 mg capsule TAKE 1 TO 2 CAPSULES POR V A ORAL CUATRO VECES AL D A CUANDO SEA NECESARIO FOR CRAMPING 0 galcanezumab-gn lm (Emgality Pen) 120 mg/mL pen injectorIndicat ions:Intractabl e persistent migraine aura without cerebral infarction and without status migrainosus,Diz ziness,Muscle tension headache INJECT 120 MG SUBCUTANEOUS EVERY 28 DAYS 1 mL 4 hydroCHLOROthia zide (HYDRODIURIL) 12.5 mg tablet HydroCHLOROthiazide 12.5 MG Oral Tablet TAKE 1 TABLET DAILY. Refills: 0 Active lisinopril (PRINIVIL,ZESTR IL) 20 mg tablet Take 20 mg by mouth daily. 8 magnesium gluconate (MAGONATE) 27 mg magnesium (500 mg) tablet Take 1 tablet (27 mg of elemental magnesium total) by mouth once a day. Take 1 tablet daily 30 tablet 5 metoprolol tartrate (LOPRESSOR) 25 mg tablet Take 25 mg by mouth 2 times a day. 8 nortriptyline (PAMELOR) 50 mg capsule TAKE 2 CAPSULES BY MOUTH ONCE A DAY 3 8 onabotulinumtox in A (BOTOX) 100 unit recon soln injection every 3 months. ondansetron (ZOFRAN) 4 mg tablet 0 riboflavin (VITAMIN B2) 100 mg tablet Take 4 tablets once a day 120 tablet 5 senna 8.6 mg tablet 0 SUMAtriptan (IMITREX) 100 mg tablet TAKE 1 AT ONSET OF MIGRAINE, MAY REPEAT IN 2 HOURS, MAXIMUM 2/DAY, 6/WEEK 12 tablet 11 4 documented as of this encounter Procedure Notes * Giovany Machado MD - 09/30/2024 9:00 AM EDT Date of procedure: 09/30/2024 HISTORY OF PRESENT ILLNESS: Kacy Merritt is a 59 y.o. female who returns to clinic for repeat botulinum toxin injection for chronic migraine. There were no side effects reported. She is reporting benefit lasting for 2 months and the last 4 weeks with notable recurrence of headaches, at least 4 days a week of severe headache with nausea and vomiting and complete disability. Softball Coach Softball Coach Used: Yes Type of Softball Coach Used: Video Softball Coach Softball Coach Name/Number: [id number] Information Interpreted : Procedure Explained Assistive Communication Needs : N/A Prior to Botox treatment: Patient has 25 of headache days per month prior to Botox. Number of days of: mild headache 0, moderate headache 0, severe headache 25 Duration of headaches on average: 24 hours, intensity (scale 0-10): 10 Since starting Botox treatment: Patient has 15 of headache days per month Number of days of: mild headache 0, moderate headache 2, severe headache 13 Duration of headaches on average: 24 hours, intensity (scale 0-10): 8-10 Patient has had 70% improvement of symptoms since starting Botox. Botox has improved the quality of home, social and work life. Patient is using fewer acute medications since starting Botox. The last injection was less effective than the ones before, since decreasing the dose to 155 units (compared to her previous dose of 200 units), due to insurance limitations, she has noted that her migraine headaches are generally less well controlled with almost 1 month of severe headache each cycle. PHYSICAL EXAMINATION: There were no vitals filed for this visit. Alert and attentive and in no apparent distress. Normal facial expression and normal pattern of speech are noted. There is tenderness over the temples. Time out was conducted in the presence of [facility] spa technician and patient. The patient's name and MRN were verified. The procedure was reviewed. Location of injections were reviewed. Patient and [facility] spa technician were in agreement with the above information. PROCEDURE: This is a patient with chronic migraine. Using aseptic technique the following areas were injected with botulinum toxin type A (BOTOX). Procerus muscle 5 units Bilateral black pickler muscles 5 units each (10 units total) Bilateral frontalis muscles 10 units each divided into two spots (20 units total) Bilateral temporalis muscles 20 units each divided into four spots (40 units total) Bilateral occipitalis muscles 15 units each divided into three spots (30 units total) Bilateral paraspinal muscles 10 units each divided into 2 spots (20 units total) Bilateral trapezius muscles 15 units each divided into 3 spots (30 units total) Dilution: 1:1 EMG Guidance used for accurate muscle localization: No Lot #: [id number] Exp. Date: 01/01 A total of 155 units of botulinum toxin type A (BOTOX) were injected; 45 units were wasted out of atotal of 200 units. The procedure was tolerated well without complication. The patient will return in 12 weeks time for repeat injections. The patient will need 155 units of botulinum toxin type A (Daxxify) as we will try if it will last longer and avoid the 1 month of severe headaches that is noted with Botox. documented in this encounter Miscellaneous Notes * Addendum Note - Giovany Machado MD - 09/30/2024 9:00 AM EDTEncounter addended by: Giovany Machado MD on: 09/30/2024 4:53 PM Actions taken: Clinical Note Signed documented in this encounter Plan of Treatment Upcoming Encounters Date Type Department Care Team (Late st Contact Info) Description 01/12/2025 9:00 AM EST Appointment [facility] [address] [place] [phone] Giovany Machado MD [address] [place] [address] Tong Shultz RT(R) 02/09/2025 9:00 AM EST Follow-Up [facility] [address] [place] [address] Mary Maria MD [address] [place] [phone] documented as of this encounter Visit Diagnoses Diagnosis 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- Primary documented in this encounter Administered Medications Inactive Administered Medications - up to 3 most recent administrations Medication Order MAR Action Action Date Dose Rate Site onabotulinumtoxin A (BOTOX) injection 155 Units 155 Units, intramuscular, Once, On Sun09/30/24 at 0930, 1 dose, Reconstitute each vial with 0.9% sodium chloride (NS) for indication specific concentration.Indications:Intr actable persistent migraine aura without cerebral infarction and without status migrainosus Given 09/30/2024 9:30 AM EDT 155 Units Other documented in this encounter Care Teams Card Tender Relationship Specialty Start Date End Date Vidhya Padilla NP [address] [place] [address] PCP - General Family Medicine 07/27/22 documented as of this encounter
--- NOTE | 2024-10-02 08:19 | MHC.OFFVIS ---
Vital Signs 10/02/24 08:22 BP 100/62 Intake Visit Reasons: vag itching/bulk sealer Required: Yes Senior Case Manager Language: Curtain Framer Name: Flavia [id number] Information Interpreted: non-clinical & clinical Material Planner: Material Planner Present (Karla) Allergies Penicillins (PENICILLINS) Allergy (Intermediate, Verified 10/02/24 09:51) HIVES/SWELLING bupropion (From Wellbutrin) Allergy (Verified 10/02/24 09:51) hives, swelling HPI Comments Details: Patient presents today with concerns of nausea vomiting and diarrhea over the last month. History of abdominal pain in in GI concerns for the last month for years. She reports left-sided pelvic pain today and some burning externally. History of partial hysterectomy. [facility] Medical History Pelvic mass Kidney anomaly, congenital Bleeding hemorrhoids Chronic abdominal pain LLQ cramping Diverticular disease of colon Clostridioides difficile diarrhea Colitis Left lower quadrant pain Tubular adenoma of colon Irritable bowel syndrome with diarrhea Sigmoid diverticulitis Acute diverticulitis Diarrhea Diverticulitis Abdominal pain GERD (gastroesophageal reflux disease) Lower abdominal pain Chronic idiopathic constipation Constipation GERD (gastroesophageal reflux disease) Surgical History History of surgery History of surgery History of intestinal surgery History of partial hysterectomy (~09/2006) Hx of hemorrhoidectomy (2008) Hx of colonoscopy (11/14/23) History of esophagogastroduodenoscopy (EGD) (11/14/23) Family History Father Cancer HTN (hypertension) Mother HTN (hypertension) Hyperthyroidism Migraine headache Maternal Grandmother History of breast cancer Paternal Grandmother History of breast cancer Family/Other Colon cancer Paternal Aunt Ovarian cancer Social History Household Members: Family and None Housing: Apartment Are you a primary childbirth and infant care teacher to a significant other at home: No Do you presently have visiting nurse or other home services: No Alcohol intake: never Patient Tobacco Use Status: Never used Tobacco Advance Directives: No Advance Directives Information Provided: Yes service: No Current occupational status: disabled Current occupational exposures/hazards: No Female Reproductive History Menstrual Age of Menarche: 7 Review of Systems Const All systems reviewed & are unremarkable except as noted in HPI and below Physical Exam Vital Signs: Last Vital Signs BP 100/62 10/02/24 08:22 Const General: cooperative, healthy appearing and no acute distress Orientation/consciousness: patient oriented x3 GI Inspection: Yes normal to inspection Palpation (GI): Soft to palpation and Other GI palpation findings present (Nontender) Rectal Exam - Female: visual inspection normal General: Yes bladder normal to palpation External Female Exam: normal appearance of the urethra Speculum Exam - Vagina: normal appearance of the vagina, normal palpation, normal vaginal discharge and vagina atrophic Speculum Exam - Cervix: Cervix absent (Vaginal cuff no lesions or nodules) Bimanual exam- vagina & uterus: normal bimanual exam, normal palpation, bladder normal to palpation, uterus absent and other (tender, mass left side abdomen/pelvis) Bimanual Exam- Adnexa, other: normal adnexae Neuro General: patient oriented x3 Results AMB Urinalysis, Automated UA Leukoctes 0 Jose/uL Last Edit by HAN Oneal on 10/02/24 08:50 UA Nitrite Negative Last Edit by HAN Oneal on 10/02/24 08:50 UA Urobilinogen 0 mg/dL Last Edit by HAN Oneal on 10/02/24 08:50 UA Protein 0.5 mg/dL Last Edit by HAN Oneal on 10/02/24 08:50 UA pH 5.5 Last Edit by HAN Oneal on 10/02/24 08:50 UA Blood 1 Wally/uL Last Edit by HAN Oneal on 10/02/24 08:50 UA Specific [place] 1.030 Last Edit by HAN Oneal on 10/02/24 08:50 UA Ketone Negative Last Edit by HAN Oneal on 10/02/24 08:50 UA Bilirubin 0 mg/dL Last Edit by HAN Oneal on 10/02/24 08:50 UA Glucose 0 mg/dL Last Edit by HAN Oneal on 08/28/25 08:50 Results Reviewed Results Reviewed: Laboratory Last Values Urine pH (Auto) 5.5 10/02/24 08:39 Specific [place] (Auto) 1.030 10/02/24 08:39 Urine Protein (Auto) 0.5 mg/dL 10/02/24 08:39 Glucose (UA)(Auto) 0 mg/dL 10/02/24 08:39 Urine Ketones (Auto) Negative 10/02/24 08:39 Urine Blood (Auto) 1 Wally/uL 10/02/24 08:39 Urine Nitrite (Auto) Negative 10/02/24 08:39 Urine Bilirubin (Auto) 0 mg/dL 10/02/24 08:39 Urine Urobilinogen (Auto) 0 mg/dL 10/02/24 08:39 Leukocyte Esterase (Auto) 0 Jose/uL 10/02/24 08:39 Assessment & Plan Assessment & Plan (1) Pelvic pain in female: Code(s): R10.2 - Pelvic and perineal pain Category: Medical Plan Consulted with Dr. Gross regarding patient's physical findings and review of medical records, I recommended her to go to the emergency room now for evaluation of abdominal mass and pain. The patient expressed understanding and agreement with the plan of care. All of her questions and concerns were addressed to the best of my ability. ED report called to ED spoke with Roni GARCIA. This note is constructed using voice recognition software. While every effort has been made to ensure accuracy, upholstery trimmer errors may have been included. Orders: Orders US pelvic and transvaginal Today R19.00 - Intra-abdominal and pelvic swelling, mass and lump, unspecified site Urine Culture Today R10.2 - Pelvic and perineal pain, R31.29 - Other microscopic hematuria Bacterial Vaginosis Panel Today N94.89 - Other specified conditions associated with female genital organs and menstrual cycle, R10.2 - Pelvic and perineal pain AMB Urinalysis Automated Today R10.2 - Pelvic and perineal pain Coding Level of Care Code Est Pt Level 3 (62407) Diagnoses Pelvic pain in female R10.2
[2024-10-02 08:22] VITALS: BP 100/62
--- OUTSIDE RECORDS SUMMARY | 2024-10-02 08:46 | XMS_ITS | Clinical Summary ---
Author Organization [facility] Address [address] [place] [address] Care Team Providers Care Fuse Maker Name Role Phone Melyssa Alonso MD Primary Care Provider [phone] Allergies Active Allergy Reactions Criticality Noted Date [...] - season) 2023 06/16/2020, 2020 Influenza (#1) 2024 12/27/2018, 10/07, 11/28/2016, Additional history exists RSV (1 - 1-dose 75+ series) 05/20/2039 Tonometry Discontinued 12/03/2020, 07/15/2020 Eye/Retina Exam Discontinued 02/16/2021, 02/05, 02/16/2021, Additional history exists HPV Vaccine (No Doses Required) Completed Hep A Aged Out No longer eligi [...] Discontinued Procedures * Due to [place] [employer] law, this organization might not be sharing negative HIV tests. Procedure Name Priority Date/Time Associated Diagnosis Comments COMPREHENSIVE EYE EXAM 07/15/2020 from Last 3 Months or Most Recently Relevant to Health Maintenance Results * Due to [place] [employer] law, this organization might not be sharing negative HIV tests. * COMPREHENSIVE EYE EXAM (07/15/2020) Fawad VALENCIA PROCEDURE Final Result from Last 3 Months or Most Recently Relevant to Health Maintenance Insurance MEDICAID MEDICAID Care Teams Fuse Maker Relationship Specialty Start Date End Date Melyssa Alonso MD [address] [address] PCP - General Internal Medicine 07/15/20
--- OUTSIDE RECORDS SUMMARY | 2024-10-02 08:46 | XMS_ITS | Encounter Summary ---
Author Organization [facility] Address [address] [place] [address] Care Team Providers Care Reconsignment Clerk Name Role Phone Vidhya Padilla NP Primary Care Provider [phone] Reason for Referral * Rehabilitation (Routine) - Authorized Specialty Diagnoses / Procedures Referred By Contact Referred To Contact Physical Medicine and Rehabilitation / Orthopaedic Surgery Diagnoses Bilateral occipital neuralgia Procedures AL INJECT NERV PELON GALEANOIPTL Patsy Le MD [address] [place] [address] Phone: tel: fax: Patsy Le MD [address] [place] [address] Phone: tel: fax: Referral ID Status Reason Start Date Expiration Date Visits Requested Visits Authorized [id number] Authorized Specialty Services Required 09/30/2024 04/01/2026 6 6 Scheduling Instructions Injection: BILATERAL occpital nerve block Block Side: bilateral Time: 15 minutes Follow up interval: 4-6 weeks in person Any blood thinner to hold: None Encounter Details Date Type Department Care Team (Late st Contact Info) Description 09/30/2024 Orders Only [facility] [address] [place] [address] Patsy Le MD [address] [place] [address] Bilateral occipital neuralgia (Primary Dx) Social History Tobacco Use Types [...] Info) Description 01/12/2025 9:00 AM EST Appointment [facility] [address] [place] [address] Giovany Machado MD [address] [place] [address] Tong Shultz RT(R) 02/09/2025 9:00 AM EST Follow-Up [facility] [address] [place] [address] Mary Maria MD [address] [place] [address] Scheduled Referrals Name Type Priority Associated Diagnoses Order Schedule Ambulatory referral to Physical Medicine Rehab Outpatient Referral Routine Bilateral occipital neuralgia Expected: 09/30/2024, Expires: 10/31/2025 documented as of this encounter Visit Diagnoses Diagnosis Bilateral occipital neuralgia- Primary documented in this encounter Care Teams Reconsignment Clerk Relationship Specialty Start Date End Date Vidhya Padilla NP [address] [place] [address] PCP - General Family Medicine 07/27/22 documented as of this encounter
--- OUTSIDE RECORDS SUMMARY | 2024-10-02 08:46 | XMS_ITS | Encounter Summary ---
Author Organization [facility] Address [address] [place] [address] Care Team Providers Care Executor Of Estate Name Role Phone Vidhya Padilla NP Primary Care Provider [phone] Encounter Details Date Type Department Care Team (Late Contact Info) Description 09/30/2024 Orders Only [facility] [address] [place] [address] Giovany Machado MD [address] [place] [phone] Social History Tobacco Use Types Packs/Day Years [...] Department Care Team (Late Contact Info) Description 01/12/2025 9:00 AM EST Appointment [facility] [address] [place], [place] [phone] Giovany Machado MD [address] [place] [address] Tong Shultz RT(R) 02/09/2025 9:00 AM EST Follow-Up [facility] [address] [place] [address] Mary Maria MD [address] [place] [address] documented as of this encounter Visit Diagnoses Not on filedocumented in this encounter Care Teams Executor Of Estate Relationship Specialty Start Date End Date Vidhya Padilla NP [address] [place] [address] PCP - General Family Medicine 07/27/22 documented as of this encounter
--- OUTSIDE RECORDS SUMMARY | 2024-10-02 08:46 | XMS_ITS | Encounter Summary ---
Author Organization [facility] Address [address] [place] [address] Care Team Providers Care Administrative Processor Name Role Phone Melyssa Alonso MD Primary Care Provider Encounter Details Date Type Department Care Team (Late st Contact Info) Description 01/10/2021 Orders Only [facility] [address] [place] [phone] Rehan Gerard, RN [address] [place] [phone] Medications Social History Tobacco Use Types Packs/Day [...] on filedocumented in this encounter Care Teams Administrative Processor Relationship Specialty Start Date End Date Melyssa Alonso MD [facility] [address] [place] [address] PCP - General Internal Medicine 07/15/20 documented as of this encounter
--- OUTSIDE RECORDS SUMMARY | 2024-10-02 08:47 | XMS_ITS | Encounter Summary ---
Author Organization [email or web address] [facility] Address [address] [place] [address] [place] [address] Care Team Providers Care Bridges And Buildings Supervisor Name Role Phone Claribel Grissom MD Primary Care Provider Vidhya Parker AUTOMOBILE BODY WORKER Primary Care Provider [phone] NameLes MD Primary Care Provider [phone] Encounter Details Date Type Department Care Team ([facility] Contact Info) Description 01/25/2022 Telephone [facility] [address] [place] [phone] Claribel Grissom MD Social History Tobacco Use [...] Upcoming Encounters Date Type Department Care Team ([facility] Contact Info) Description 11/17/2024 10:15 AM EDT Office Visit [facility] [address] [place] [address] Les Torres MD [address] [place] [address] documented as of this encounter Visit Diagnoses Not on filedocumented in this encounter Care Teams Bridges And Buildings Supervisor Relationship Specialty Start Date End Date Claribel Grissom MD PCP - General Family Medicine 12/09/18 02/06/22 Vidhya Padilla FNP [address] [place] [address] PCP - General Family Medicine 02/07/22 10/08/23 Les Torres MD [address] [place] [address] PCP - General Internal Medicine 10/09/23 documented as of this encounter
--- OUTSIDE RECORDS SUMMARY | 2024-10-02 08:47 | XMS_ITS | Encounter Summary ---
Author Organization [employer] [facility] Address [address] [place] [address] [address] [place] [address] Care Team Providers Care It Field Technician Name Role Phone Vidhya Padilla Primary Care Provider [phone] NameLes MD Primary Care Provider [phone] Encounter Details Date Type Department Care Team ([facility] Contact Info) Description 03/21/2022 Orders Only [facility] [address] [place] [address] Vidhya Padilla FNP [address] [place] [address] Sigmoid diverticulitis (Primary Dx) Social History Tobacco [...] Upcoming Encounters Date Type Department Care Team ([facility] Contact Info) Description 11/17/2024 10:15 AM EDT Office Visit [facility] [address] [place] [address] Name, MD Les [address] [place] [address] documented as of this encounter Visit Diagnoses Diagnosis Sigmoid diverticulitis- Primary Diverticulitis of colon (without mention of hemorrhage) documented in this encounter Care Teams It Field Technician Relationship Specialty Start Date End Date Vidhya Padilla FNP [address] [place] [address] PCP - General Family Medicine 02/07/22 10/08/23 Name, MD Les [address] [place] [address] PCP - General Internal Medicine 10/09/23 documented as of this encounter
--- OUTSIDE RECORDS SUMMARY | 2024-10-02 08:47 | XMS_ITS | Encounter Summary ---
Author Organization [employer] Address [address] [place] [address] 7 [place] [address] Care Team Providers Care Medicine Man Name Role Phone Vidhya Padilla Primary Care Provider [phone] Name, Les GARCIA Primary Care Provider [phone] Reason for Visit * Reason Onset Date Comments Referral 03/01/2022 Encounter Details Date Type Department Care Team ([facility] st Contact Info) Description 03/01/2022 Telephone [facility] MED[facility]INE [address] [place] [address] Vidhya Padilla FNP [address] [place], [place] [phone] Referral Social History Tobacco Use Types Packs/Day [...] 03/01/2022 2:52 PM EST Telephone call to [facility] urology in regards to pt's referral. Pt needs referral for cyst in kidney andabdominal pain per [facility]. N28.1 and R10.9 respectively. * Telephone Encounter - Nolan Carlisle - 03/01/2022 9:03 AM EST Tc from pt requesting a referral to [facility]. Pt states she received a call and she was advised to request a referral do to something in her Left Kidney. Corporate Compliance Manager was attempting togather details, pt was unable to provide details. 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
--- OUTSIDE RECORDS SUMMARY | 2024-10-02 08:47 | XMS_ITS | Clinical Summary ---
Author Organization [employer] Address [address] [place] [address] 7 [place] [address] Care Team Providers Care Typecasting Machine Operator Name Role Phone Name, Les GARCIA Primary Care Provider [phone] Allergies Active Allergy Reactions Criticality Noted Date Comments Bupropion Swelling,Angioedema High 11/28/2016 Penicillins Rash Low 03/31/2020 Medications dicyclomine (Bentyl) 20 MG tablet TAKE 2 TABLETS 4 TIMES A DAY Active docusate sodium (Colace) 100 MG capsule TAKE 1 CAPSULE BY MOUTH TWICE A DAY Active nortriptyline (Pamelor) 50 MG capsule TAKE 2 CAPSULES BY MOUTH EVERY EVENING Active pantoprazole (ProtoNix) 40 MG EC tablet Take 1 tablet by mouth 1 (one) time each day. Active Metamucil [facility] Fiber 63 % powder MIX 1 TBSP 2 TIMES A DAY INTO AT LEAST 8 OZ OF WATER OR JUICE BEFORE DRINKING Active SUMAtriptan (Imitrex) 100 MG tablet TAKE 1 AT ONSET OF MIGRAINE, MAY REPEAT IN 2 HOURS, MAXIMUM 2/DAY, 6/WEEK Active zolpidem CR (Ambien CR) 12.5 MG ER tablet TAKE 1 TABLET BY MOUTH EVERY DAY AT BEDTIME NEEDED Active botulinum toxin Type A, Cosm, (Botox) 100 units reconstituted solution Inject every 3 months Active acetaminophen (Tylenol) 325 MG tablet 2 tablets every 4 hours Active Lactobacillus-In ulin (CULTURELLE DIGESTIVE DAILY PO) Take by mouth. 1 capsule daily Active ARIPiprazole (Abilify) 15 MG tablet Take 15 mg by mouth in the morning. Active busPIRone (Buspar) 15 MG tablet Take 1 tablet by mouth 2 times daily. Active nabumetone (Relafen) 750 MG tablet Take 1 tablet by mouth 2 times daily. 023 Active prochlorperazine (Compazine) 10 MG tablet TAKE 1 TABLET BY MOUTH TWICE A DAY NEEDED FOR NAUSEA AND VOMITING Active A.E.RPete Crane Aixa pad APPLY TOPICALLY IF NEEDED FOR IRRITATION OR HEMORRHOIDS. *NC* 023 Active metoprolol tartrate (Lopressor) 25 MG tablet TAKE 1 TABLET BY MOUTH TWICE A DAY 180 tablet 3 Active cholecalciferol (Vitamin D3) 25 MCG (1000 UT) tabletIndication s:Vitamin D insufficiency TAKE 1 TABLET BY MOUTH EVERY DAY IN THE MORNING 90 tablet 1 Active cholestyramine light (Prevalite) 4 g packet USE 1 PACKET 2 TIMES A DAY ADMINISTER W/MEAL AVOID OTHER MEDS WITHIN 1HR BEFORE OR 4-6HR AFTER DOSE Active esomeprazole (NexIUM) [address] capsule Take 1 capsule by mouth Once per day. Active eszopiclone (Lunesta) 2 MG tablet Take 2 mg by mouth if needed at bedtime for sleep. Active famotidine (Pepcid) 40 MG tablet Take 1 tablet by mouth 2 times daily. Active magnesium gluconate (Magonate) 500 MG tablet Take 1 tablet by mouth Once per day. Active riboflavin (vitamin B2) 100 mg tablet tablet Take 4 tablets by mouth Once per day. Active traMADol (Ultram) 50 MG tablet Take 1 tablet by mouth every 8 (eight) hours if needed for pain. Active Emgality 120 MG/ML prefilled syringe INJECT 120 MG SUBCUTANEOUS EVERY 28 DAYS Active lisinopril 20 MG tabletIndication s:Primary hypertension TAKE 1 TABLET BY MOUTH EVERY DAY 90 tablet 1 Active Emgality 120 MG/ML auto-injector INJECT 120 MG SUBCUTANEOUS EVERY 28 DAYS 30/ 2025 Discontinued(T herapy completed) lisinopril 20 MG tabletIndication s:Primary hypertension TAKE 1 TABLET BY MOUTH EVERY DAY 90 tablet 1 025 2024 Discontinued Active Problems Problem Noted Date Diagnosed Date [...] 09/26/2021 Dizziness 09/26/2021 Muscle tension headache 09/26/2021 Abnormal finding on MRI of brain 01/25/2018 Primary insomnia 01/25/2018 Refractory migraine without aura 10/29/2017 Anemia 05/28/2017 Heel pain 05/28/2017 Iron deficiency anemia 05/28/2017 Obesity 05/28/2017 Abnormal breast exam 10/17/2016 Essential hypertension 10/17/2016 Depressive disorder 06/10/2012 Eczema 06/10/2012 GERD (gastroesophageal reflux disease) 2 History of hysterectomy 10/17/2011 Resolved Problems Problem Noted Date Diagnosed Date Resolved Date Optic nerve swelling 03/18/2018 025 Encounters Date Type Department Care Team Description 09/08/2024 Refill [facility] PEDS [address] [place], [place] [phone] Name, MD Les Primary hypertension 09/05/2024 Telephone [facility] MEDICINE [address] [place] [address] [place] jason recall 08/22/2024 1:30 PM EDT Office Visit [facility] OPTOMETRY [address] [place] [address] Brock, Lakshmi, OD Nuclear senile cataract of both eyes (Primary Dx); Chorioretinal scar, right eye; Meibomian gland disease, unspecified laterality; H/O laser iridotomy; Presbyopia 08/22/2024 Travel 07/04/2024 Orders Only GENERIC EXTERNAL DATA DEPARTMENT Provider, Generic External Data from Last 3 Months Immunizations Immunization Administration Dates Next Due Influenza injectable quadriv [...] the past 12 months, has t he Fire[employer], gas, oil or water company threatened to [...] 83 12/25/2022 1:08 PM EST Temperature 36.3 C (97.3 F) 12/25/2022 1:08 PM EST Respiratory Rate 16 12/25/2022 1:08 PM EST [...] Description 11/17/2024 10:15 AM EDT Office Visit [facility] MEDICINE [address] [place], [place] [phone] Name, MD Les [address] [place] [address] Health Maintenance Due Date Last Done Comments CT Colonography 1965 FIT DNA/Cologuard 1964 FIT 1965 FOBT 1965 HIV Screening 1965 Sigmoidoscopy 1965 Disability Screening 1964 Alcohol/Substance Use Screening 1976 Pap Smear 1985 Cervical Cancer Screening 1994 HPV/Cotest 1994 Pneumococcal Vaccine: 50+ Years (1 of 1 - PCV) 2014 Depression Monitoring 11/30/2022 05/31/2022, 023 SDOH Screening 06/01/2023 05/31/2022 COVID-19 Vaccine ( season) 2023 12/16/2021, 12/29/2020, 06/16/2020, Additional history exists Influenza Vaccine (#1) 2024 , 11/17/2021, 12/29/2020, Additional history exists Colonoscopy 05/10/2025 05/10/2022 Colorectal Cancer Screening 05/10/2025 Tobacco Screening 09/03/2025 09/03/2024 Mammogram 03/10/2026 03/10/2024, 01/06, 01/06/2020, Additional history [...] patient's age to complete this topic Meningococcal B Vaccine Aged Out No l onger eligible based on patient's age to complete [...] Procedure Name Priority Date/Time Associated Diagnosis Comments GROSS AND MICROSCOPIC LEVEL 3 Routine 07/04/2024 1:19 PM EDT BI MAMMOGRAM SCREENING TOMOSYNTHESIS BILATERAL Routine 03/10/2024 12:48 PM EST HEPATITIS PANEL, GENERAL Routine 03/14/2023 10:20 AM EST HM COLONOSCOPY Routine 05/10/2022 8:39 AM EDT LIPID PANEL, STANDARD Routine 08/05/2021 9:50 AM EDT from Last 3 Months or Most Recently Relevant to Health Maintenance Results * Gross and Microscopic Level 3 (07/04/2024 1:19 PM EDT) 07/04/2024 1:19 PM EDT 07/04/2024 1:59 PM EDT [facility] - 07/07/2024 2:01 PM EDT ----- ------- Name: Kacy Merritt Age/Sex: 59/F : 1965 Unit#: [id number] Attend Dr: Fritz Veliz MD Re07/04/24 Status: [facility] Location: [facility] Disch: ----- ------- SPEC : [id number] RECD: 07/04/24-1359 STATUS: DENNIS BARKER NUM: [id number] TARA: 07/04/24-[address] [facility] [address]: Fritz Veliz MD ENTERED: 07/04/24-5841 SP TYPE: Surgical OTHR DR: Vidhya Padilla ENVIRONMENTAL SERVICES MANAGER ORDERED: Gross Micro L3 Diagnosis Hemorrhoids, excision: Anal squamous mucosa with dilated and congested submucosal vessels consistent with hemorrhoids. Clinical History Hemorrhoids Microscopic Description Microscopic sections reviewed. Material Received Hemorrhoids Gross Description Received in formalin labeled hemorrhoids is a portion of blue pink glabrous skin and anal mucosa measuring 3.0 x 1.1 x 1.5 cm in greatest dimension. The surface is smooth. The underside is red-pink and shaggy. Sectioning reveals a pink white cut surface. Primary Grade Teacher sections are submitted for microscopic examination, 3 pieces in cassette A1. ([facility]) IHC S/NG Disclaimer NOTE: Unless otherwise stated, all tissue is formalin-fixed and paraffin-embedded. Some or all of the immunohistochemical tests reported herein may have been developed and their performance characteristics determined by [facility]. They have not been cleared or approved by the U.S. Food and Drug Administration (FDA). However, the FDA has determined that such clearance or approval is not necessary. This laboratory is certified under the Clinical Laboratory Improvement Amendments of 1988 (CLIA) as qualified to perform high complexity clinical laboratory testing. Copies To: Vidhya Padilla NP [address] [place], [place] [phone] CONTINUED ON NEXT PAGE ----- ------- Name: Sam Merritta Age/Sex: 59/F : 1965 Unit#: [id number] Attend Dr: Fritz Veliz MD Re07/04/24 Status: [facility] Location: [facility] Disch: ----- ------- SPEC : [id number] RECD: 07/04/24-1356 STATUS: DENNIS BARKER NUM: [id number] TARA: 07/04/24-[address] [facility] [address]: Fritz Veliz MD ENTERED: 07/04/24-5363 SP TYPE: Surgical OTHR DR: Vidhya Padilla NP ORDERED: Gross Micro L3 Copies To: (Continued) Fritz Veliz MD [facility] General Surgeons [address] [place] [address] ----- ------- Signed (signature on file) Chantel Alcaraz MD 07/07/24 1401 ----- ------- END OF REPORT Generic External Data Provider LAB CYTOLOGY SIVAN FAROOQ Final Result [facility] [address] [place] [phone] * BI Mammogram Screening Tomosynthesis Bilateral (03/10/2024 12:48 PM EST) Anatomical Region Laterality Modality Breast Bilateral Mammography 03/10/2024 12:4 8 PM EST Narrative 03/16/2024 5:47 PM EST [facility] [address] [place] [address] Mammography Report Signed Patient: Kacy Merritt MR#: [id number] 9 : 1965 Acct:[id number] Age/Sex: 58 / F ADM Date: 03/10/24 Loc: [facility] Attending Dr: Vidhya Padilla NP Ordering Physician: Vidhya Padilla NP Results: 1Negativ e Date of Service: 03/10/24 Follow Up: 1 Year From Orig inal Mammogram Procedure(s): MM tomosynthesis screening BI Accession Number(s): [id number] cc: Botas,Vidhya ENVIRONMENTAL SERVICES MANAGER EXAMINATION: MM SCREENING DIGITAL BREAST TOMOSYNTHESIS, BILATERAL [...] 03/16/24 1744 DD/ 1248 TD/TT: 03/10/24 1308 Furniture Inspector: Procedure Note Donotuseinterpreter, Image - 03/16/2024 [facility] [address] [place] [address] Mammography Report Signed Patient: Meghan Merritt#: [id number] 9 : 1965Acct:[id number] Age/Sex: 58 / FADM Date: 03/10/24 Loc: HO.MAMMO Attending Dr: Vidhya Padilla ENVIRONMENTAL SERVICES MANAGER Ordering Physician: Vidhya Padilla NPResults: 1Negativ e Date of Service: 03/10/24Follow Up: 1 Year From Orig inal Mammogram Procedure(s): MM tomosynthesis screening BI Accession Number(s): [id number] cc: Vidhya Padilla NP EXAMINATION: MM SCREENING [...] 03/16/24 1744 DD/ 1248 TD/TT: 03/10/24 1308 Furniture Inspector: Vidhya Padilla SOLAR SALES ESTIMATOR IMG BI PROCEDURES Edited Result - Final * Hepatitis Panel, General (03/14/2023 10:20 AM EST) Hepatitis A IgM Nonreactive Nonreactive [facility] Comment:IgM antibodies to QUEZADA V not detected; does not exclude earlyacute or recovered HAV infection. ~Hepatitis B Surface Antibody NONREACTIVE Nonreactive [facility] Comment:Nonreactive: < 8.00 mIU/mL Hepatitis B Core Antibody Nonreactive Nonreactive [facility] Hepatitis C Antibody Nonreactive Nonreactive [facility] Comment:Antibodies to HCV no t detected; does not exclude early acuteHCV infection. Hepatitis B Surface Ag Negative Negative [facility] 03/14/2023 10:2 0 AM EST 03/14/2023 10:26 AM EST us Generic External Data Provider LAB BLOOD ORDERAB LES Final Result [facility] [address] [place] [phone] * Colonoscopy (05/10/2022 8:39 AM EDT) Colonoscopy Normal Normal Narrative Shanice Perez - 05/10/2022 8:39 AM EDT Recommended 3 year follow up ([facility]) Historical Provider HEALTH MAINTENANCE Edited Result - Final * (ABNORMAL) LIPID PANEL, STANDARD (08/05/2021 9:50 AM EDT) Chol/HDLC Ratio 4.1 <5.0 (calc) [facility] Cholesterol, Total 239(H) <200 mg/dL [facility] HDL Cholesterol 58 > OR = 50 mg/dL [facility] LDL Cholesterol 156(H) mg/dL (calc) [facility] Comment: Reference range: <100 Desirable range <100 mg/dL for primary prevention; <70 mg/dL for patients with CHD or diabetic patients with > or = 2 CHD risk factors. LDL-C is now calculated using the Eliceo-Ardon calculation, which is a validated novel method providing better accuracy than the Friedewald equation in the estimation of LDL-C. Eliceo SS et al. ROLDAN. 2013;310(19): 1915-0346 (http://education.Clinical Data.com/faq/YGW794) Non-HDL Cholesterol 181(H) <130 mg/dL (calc) [facility] Comment: For patients with diabetes plus 1 major ASCVD risk factor, treating to a non-HDL-C goal of <100 mg/dL (LDL-C of <70 mg/dL) is considered a therapeutic option. Triglycerides 126 <150 mg/dL [facility] 08/05/2021 9:50 AM EDT Claribel Grissom MD LAB BLOOD ORDERABLES Final R esult [facility] [address] from Last 3 Months or Most Recently Relevant to Health Maintenance Insurance * Guarantor: Kacy Merritt Account Type Relation to Patient Date of Phone Billing Address Personal/Family Self [address] Care Teams Typecasting Machine Operator Relationship Specialty Start Date End Date Name, MD Les [address] [place] [address] PCP - General Internal Medicine 10/09/23
--- OUTSIDE RECORDS SUMMARY | 2024-10-02 08:47 | XMS_ITS | Encounter Summary ---
Author Organization [employer] Address [address] [place] [address] 7 [place] [address] Care Team Providers Care Regional Intermodal Truck Driver Name Role Phone Vidhya Padilla Primary Care Provider [phone] NameLes MD Primary Care Provider [phone] Reason for Visit * Reason Comments Med Change Request Encounter Details Date Type Department Care Team ([facility] st Contact Info) Description 08/02/2022 Refill [facility] [address] [place] [address] Vidhya Padilla FNP [address] [place] [address] Social History Tobacco Use Types Packs/Day Years [...] Description 11/17/2024 10:15 AM EDT Office Visit [facility] [address] [place] [address] NameLes MD [address] [place] [address] documented as of this encounter Visit Diagnoses Not on filedocumented in this encounter Additional Health Concerns Assessment Noted Time PHQ-9 Depression Total Score: 18 023 9:14 AM EDT documented as of this encounter Care Teams Regional Intermodal Truck Driver Relationship Specialty Start Date End Date Vidhya Padilla FNP [address] [place] [address] PCP - General Family Medicine 02/07/22 10/08/23 Name, MD Les [address] [place] [address] PCP - General Internal Medicine 10/09/23 documented as of this encounter
--- OUTSIDE RECORDS SUMMARY | 2024-10-02 08:47 | XMS_ITS | Encounter Summary ---
Author Organization [facility] Address [address] [place] [address] Care Team Providers Care Form Setter Steel Pan Forms Name Role Phone Vidhya Padilla PAPER BAGS SEWING MACHINE OPERATOR Primary Care Provider [phone] Reason for Visit * Reason Onset Date Comments PAC Appt Request - New 07/27/2022 Encounter Details Date Type Department [facility] Description 07/27/2022 Telephone [facility] Patient Access Center [address] [place] [address] Telephone Intake, Staff PAC Appt Request - [...] available is February, please call patient with manager human capital to schedule appt. documented in this encounter Plan of Treatment Upcoming Encounters Date Type Department Care Team (Late st Contact Info) Description 01/12/2025 9:00 AM EST Appointment [facility] Neurodiagnostics [address] [place] [address] Giovany Machado MD [address] [place] [address] Tong Shultz RT(R) 02/09/2025 9:00 AM EST Follow-Up [facility] Neurology [address] [place] [address] Mary Maria MD [address] [place] [address] documented as of this encounter Visit Diagnoses Not on filedocumented in this encounter Additional Health Concerns Infection Onset Date Last Indicated Resolved Time R/O C.diff 08/25/2022 08/25/2022 08/25/2022 3:19 PM EDT R/O C.diff 09/06/2022 09/06/2022 09/06/2022 12:3 1 PM EDT R/O C.diff 10/03/2022 10/03/2022 10/04/2022 4:31 AM EDT documented as of this encounter Care Teams Form Setter Steel Pan Forms Relationship Specialty Start Date End Date Vidhya Padilla NP [address] [place] [address] PCP - General Family Medicine 07/27/22 documented as of this encounter
--- OUTSIDE RECORDS SUMMARY | 2024-10-02 08:47 | XMS_ITS | Encounter Summary ---
Author Organization [employer] Address [address] [place] [address] [address] [place] [address] Care Team Providers Care Electronics Engineering Professor Name Role Phone Vidhya Padilla Primary Care Provider [phone] Les Torres MD Primary Care Provider [phone] Encounter Details Date Type Department Care Team (Late Contact Info) Description 07/20/2022 Abstract [facility] MEDICINE [address] [place] [address] Vidhya Padilla FNP [address] [place] [address] Social History Tobacco Use Types Packs/Day Years [...] Department Care Team (Late Contact Info) Description 11/17/2024 10:15 AM EDT Office Visit [facility] MEDICINE [address] [place] [address] NameLes MD [address] [place] [address] documented as of this encounter Procedures Procedure Name Priority Date/Time Associated Diagnosis Comments COLONOSCOPY Routine 05/10/2022 8:39 AM EDT documented in this encounter Results * Colonoscopy (05/10/2022 8:39 AM EDT) Colonoscopy Normal Normal Narrative Shanice Perez - 05/10/2022 8:39 AM EDT Recommended 3 year follow up ([facility]) us Historical Provider [facility] EMERGENCY [facility]PARTMENT Edited Result - Final documented in this encounter Visit Diagnoses Not on filedocumented in this encounter Additional Health Concerns Assessment Noted Time PHQ-9 Depression Total Score: 18 023 9:14 AM EDT documented as of this encounter Care Teams Electronics Engineering Professor Relationship Specialty Start Date End Date Vidhya Padilla FNP [address] [place] [address] PCP - General Family Medicine 02/07/22 10/08/23 Name, MD Les [address] [place] [address] PCP - General Internal Medicine 10/09/23 documented as of this encounter
--- OUTSIDE RECORDS SUMMARY | 2024-10-02 08:47 | XMS_ITS | Encounter Summary ---
Author Organization [facility] Address [address] [place] [address] Care Team Providers Care Blacktop Paver Operator Name Role Phone Vidhya Padilla NP Primary Care Provider [phone] Encounter Details Date Type Department Care Team (Late Contact Info) Description 11/08/2020 Orders Only [facility]rology [facility] [address] [place] [address] Santy Madison MD [address] [place] [address] Social History Tobacco Use Types Packs/Day Years [...] Info) Description 01/12/2025 9:00 AM EST Appointment [facility] Neurodiagnostics [address] [place] [address] Giovany Machado MD [address] [place], [place] [phone] Tong Shultz RT(R) 02/09/2025 9:00 AM EST Follow-Up [facility] Neurology [address] [place] [address] Mary Maria MD [address] [place] [address] documented as of this encounter Visit Diagnoses Not on filedocumented in this encounter Additional Health Concerns Infection Onset Date Last Indicated Resolved Time R/O C.diff 08/25/2022 08/25/2022 08/25/2022 3:19 PM EDT R/O C.diff 09/06/2022 09/06/2022 09/06/2022 12:3 1 PM EDT R/O C.diff 10/03/2022 10/03/2022 10/04/2022 4:31 AM EDT documented as of this encounter Care Teams Blacktop Paver Operator Relationship Specialty Start Date End Date Vidhya Padilla NP [address] [place] [address] PCP - General Family Medicine 07/27/22 documented as of this encounter
--- OUTSIDE RECORDS SUMMARY | 2024-10-02 08:47 | XMS_ITS | Clinical Summary ---
Author Organization [facility] Address [address] [place] [address] Care Team Providers Care Rn L And D Name Role Phone Vidhya Padilla THREADING MACHINE FEEDER AUTOMATIC Primary Care Provider [phone] Allergies Active Allergy Reactions Criticality Noted Date [...] ONCE A DAY 3 11/03/19 18 Active onabotulinumt oxin A (BOTOX) 100 unit recon soln injection every 3 months. Acti ve ARIPiprazole (ABILIFY) 5 mg tablet Take 5 mg by mouth daily. Active dicyclomine (BENTYL) 10 mg capsule TAKE 1 TO 2 CAPSULES POR V A ORAL CUATRO VECES AL D A CUANDO SEA NECESARIO FOR CRAMPING 10/23/19 20 Active ondansetron (ZOFRAN) 4 mg tablet 10/30/19 20 Active senna 8.6 mg tablet 09/23/19 20 Active galcanezumab- gnlm (Emgality Pen) 120 mg/mL pen injectorIndic ations:Intrac table persistent migraine aura without cerebral infarction and without status migrainosus,D Sarbjit lyn tension headache INJECT 120 MG SUBCUTANEOUS EVERY 28 DAYS 1 mL 11 10/04/19 24 Active SUMAtriptan (IMITREX) 100 mg tablet TAKE 1 AT ONSET OF MIGRAINE, MAY REPEAT IN 2 HOURS, MAXIMUM 2/DAY, 6/WEEK 12 tablet 11 01/14/20 24 Active magnesium gluconate (MAGONATE) 27 mg magnesium (500 mg) tablet Take 1 tablet (27 mg of elemental magnesium total) by mouth once a day. 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 (Primary Dx) Discharge Disposition: Home or Self Care (01) 09/30/2024 Orders Only [facility] [address] [place] [address] Giovany Machado MD 09/30/2024 Orders Only [facility] [address] [place] [address] Patsy Le MD Bilateral occipital neuralgia (Primary Dx) 08/05/2024 Orders Only [facility] [address] [place] [address] Giovany Machado MD 07/25/2024 10:15 AM EDT Office Visit [facility] [address] [place] [address] Patsy Le MD Bilateral occipital neuralgia (Primary Dx) 07/03/2024 9:00 AM EDT Office Visit [facility] Neurology [address] [place] [address] Mary Maria MD Migraine aura, persistent, intractable (Primary Dx); Bilateral occipital neuralgia from Last 3 Months Family History Medical [...] Sign Reading Time Taken Comments Blood Pressure 107/71 07/03/2024 9:00 AM EDT Pulse 76 07/03/2024 9:00 AM EDT Temperature 36.7 C (98 F) 06/29/2023 9:25 AM EDT Respiratory Rate 18 09/01/2022 9:43 AM EDT Oxygen Saturation 99% 07/03/2024 9:00 AM EDT Inhaled Oxygen Concentration - - Weight 75.8 kg (167 lb) 07/25/2024 9:37 AM EDT Height 162.6 cm (5' 4 ) 07/25/2024 9:37 AM EDT Body Mass Index 28.67 07/25/2024 9:37 AM EDT Plan of Treatment Upcoming Encounters Date Type Department Care Team (Late st Contact Info) Description 01/12/2025 9:00 AM EST Appointment [facility] [address] [place] [address] Giovany Machado MD [address] [place] [address] Tong Shultz RT(R) 02/09/2025 9:00 AM EST Follow-Up [facility] [address] [place] [address] Mary Maria MD [address] [place] [address] Health Maintenance Due Date Last Done Comments [...] of Health Annual Screening 02/06/2024 Influenza Vaccine (#1) 2024 3, 11/17/2021, 12/29/2020, Additional history exists Basic Metabolic Panel 11/06/2024 11/07/2023, 024 Diabetes Screening 11/06/2026 11/07/2023, 03/14/2023 DTaP,Tdap,and Td Vaccines (3 - Td or Tdap) 07/20/2031 07/19/2021, 09/01/2010 RSV Vaccine (60+ years old and patients) (1 - 1-dose 75+ series) 05/20/2039 Zoster Vaccines Completed 10/18/2021, 07/19/2021 Hepatitis B Vaccines Aged Out No long er eligible based on patient's age to complete this topic Insurance [employer] Care Teams Rn L And D Relationship Specialty Start Date End Date Vidhya Padilla NP [address] [place] [address] PCP - General Family Medicine 07/27/22
== END 2024-10-02 09:45 | disposition home or self-care (01) ==
LOC: HO.HWS 08:16
PROVIDERS: PCP Nurse Practitioner Family; Visit Provider Advanced Practice Midwife
DX: R10.2 Pelvic and perineal pain (principal)

== ENCOUNTER 2024-10-02 09:09 | Emergency (ER) | payer MEDICAID, SELFPAY ==
--- NOTE | ~2024-10-02 | CT_ITS ---
EXAMINATION: CT ABDOMEN PELVIS WITH IV CONTRAST HISTORY: LLQ Pain diarrhea hx of diverticulitis COMPARISON: Comparison is made with the prior examination dated 11/07/2023. TECHNIQUE: CT scan of the abdomen and pelvis was performed following administration of 85 mL Omnipaque 350 using standard departmental protocol. Coronal and sagittal reformatted images were generated and reviewed. Oral contrast material was not administered at the request of the referring physician. This CT exam was performed with one or more of the following dose reduction techniques: automated exposure control, adjustment of the mA and/or kV according to patient size, use of iterative reconstruction technique. DLP: 624 mGy-cm FINDINGS: LOWER CHEST: The visualized lung bases are clear. There is no pleural effusion. CARDIOVASCULATURE: The heart is normal in size. There is no pericardial effusion. LIVER: The liver is normal in size and contour. There is a subcentimeter blush of enhancement in the left lobe without change. This likely represents a flash filling hemangioma. The hepatic and portal veins are patent. GALLBLADDER / BILE DUCTS: The gallbladder is unremarkable. There is no intra or extrahepatic biliary ductal dilatation. SPLEEN: The spleen is normal in size. No focal splenic lesion is identified. PANCREAS: The pancreas is unremarkable in appearance. ADRENAL GLANDS: Within normal limits. KIDNEYS/RETROPERITONEUM: No renal calculi are identified. There is no hydronephrosis. There is a probable 1.5 cm cyst at the lower pole of the left kidney. LYMPH NODES: No abdominal or pelvic lymphadenopathy. VASCULATURE: The abdominal aorta is normal in caliber. MESENTERY/PERITONEUM: No free fluid. No masses. There is no free intraperitoneal gas. STOMACH: The stomach is collapsed, limiting evaluation. SMALL BOWEL: The small bowel is normal in caliber. COLON: There are multiple focal collapsed areas of the colon. Underlying neoplasm in these regions is not excluded. These are scattered throughout the entire colon. There is more prominent diffuse wall thickening of the sigmoid colon and rectum. There is no significant diverticulosis and no evidence of diverticulitis. APPENDIX: Normal. URINARY BLADDER/PELVIC ORGANS: The urinary bladder is collapsed, limiting evaluation. The patient is status post hysterectomy. BONES / SOFT TISSUES: No suspicious bony or soft tissue abnormalities. CT/CT abdomen pelvis w IV con IMPRESSION: Wall thickening of the rectosigmoid colon suggestive of colitis. Additional focal collapsed areas of the colon could represent additional areas of colitis, although neoplasm is not excluded. Colonoscopy is recommended. Electronically signed by: Fawad Pearson MD 10/02/2024 03:16 PM EDT
--- NOTE | 2024-10-02 09:47 | ED.ABDPAIN ---
HPI - Abdominal Pain General Chief Complaint: Abdominal Pain Stated Complaint: L lower quadrant pain Time Seen by Provider: 10/02/24 12:26 History of Present Illness ED Provider: Neymar Joshi MD HPI narrative: [age] female with history of diverticulitis went for a routine garage door opener installer visit today she said she had an internal vaginal exam and the garage door opener installer was concerned about level of tenderness and possible palpation of the mass. The patient has not had dysuria vaginal bleeding she reports a history of renal cyst on the left side but no kidney stones. She does report a history of diverticulitis in the past. No diarrhea no GI bleeding denies fever Related Data Home Medications ?Medication ?Instructions ?Recorded ?Confirmed lisinopril 20 mg tablet 20 mg PO DAILY 11/25/21 07/02/24 metoprolol tartrate 25 mg tablet 25 mg PO BID 11/25/21 07/02/24 nortriptyline 50 mg capsule 100 mg PO BEDTIME 11/25/21 07/02/24 sumatriptan succinate 100 mg tablet 100 mg PO DAILY PRN migraine 11/25/21 07/02/24 buspirone 15 mg tablet 15 mg PO BID 01/01/24 07/02/24 galcanezumab-gnlm 120 mg/mL mg subcut 01/01/24 subcutaneous syringe (Emgality) eszopiclone 2 mg tablet 2 mg PO BEDTIME sleep disorder 04/28/24 07/02/24 aripiprazole 15 mg tablet 15 mg PO QAM 06/09/24 07/02/24 Previous Rx's ?Medication ?Instructions ?Recorded cholecalciferol (vitamin D3) 25 25 mcg PO QAM #90 tabs 06/09/24 mcg (1,000 unit) tablet cholestyramine 4 gram oral powder 4 g PO BID #60 ea 06/09/24 for suspension in a packet (Cholestyramine Light) docusate sodium 100 mg capsule 100 mg PO BID #60 caps 07/04/24 (Colace) ibuprofen 600 mg tablet 600 mg PO Q6H PRN pain #20 tabs 07/04/24 oxycodone-acetaminophen 5 mg-325 1 tab PO Q6H PRN pain #25 tabs 07/04/24 mg tablet oxycodone 5 mg tablet 5 mg PO TID PRN pain #20 tabs 07/10/24 tramadol 50 mg tablet 50 mg PO TID PRN pain #30 tabs 07/10/24 diphenoxylate-atropine 2.5 1 tab PO TID PRN diarrhea #20 tabs 07/17/24 mg-0.025 mg tablet (Lomotil) famotidine 40 mg tablet 40 mg PO BID #180 tabs 09/05/24 amoxicillin 875 mg-potassium 1 tab PO BID 7 days #14 tabs 10/02/24 clavulanate 125 mg tablet Allergies Allergy/AdvReac Type Severity Reaction Status Date / Time Penicillins (PENICILLINS) Allergy Intermediate HIVES/SWELL Verified 10/02/24 09:51 ING bupropion (From Wellbutrin) Allergy hives, Verified 10/02/24 09:51 swelling PMFSH Past Medical History Medical History Pelvic mass Kidney anomaly, congenital Bleeding hemorrhoids Chronic abdominal pain LLQ cramping Diverticular disease of colon Clostridioides difficile diarrhea Colitis Left lower quadrant pain Tubular adenoma of colon Irritable bowel syndrome with diarrhea Sigmoid diverticulitis Acute diverticulitis Diarrhea Diverticulitis Abdominal pain GERD (gastroesophageal reflux disease) Lower abdominal pain Chronic idiopathic constipation Constipation GERD (gastroesophageal reflux disease) Surgical History History of surgery History of surgery History of intestinal surgery History of partial hysterectomy (~09/2006) Hx of hemorrhoidectomy (2008) Hx of colonoscopy (11/14/23) History of esophagogastroduodenoscopy (EGD) (11/14/23) Family History Family History Father Cancer HTN (hypertension) Mother HTN (hypertension) Hyperthyroidism Migraine headache Maternal Grandmother History of breast cancer Paternal Grandmother History of breast cancer Family/Other Colon cancer Paternal Aunt Ovarian cancer Social History Social History Household Members: Family and None Housing: Apartment Are you a primary rn primary care to a significant other at home: No Do you presently have visiting nurse or other home services: No Alcohol intake: never Patient Tobacco Use Status: Never used Tobacco Smoked in Last 30 Days: No Advance Directives: No Advance Directives Information Provided: Yes service: No Current occupational status: disabled Current occupational exposures/hazards: No Physical Exam ED Exam Exam: EXAM: Gen: Alert, awake, well appearing, well hydrated. Head: Atraumatic Eyes: Anicteric, Normal conjunctiva. ENT: Moist mucosa, no pallor. ? Neck: Supple. Skin: ?No observable rash or bruising on exposed or examined skin Respiratory: Breathing comfortably, No distress.Clear to auscultation bilaterally, symmetric chest expansion, No wheeze, rales, ronchi. Cardiovascular: Regular rate and rhythm. No murmurs or rub. Well perfused periphery, warm extremities. No edema. ? Abdominal:LLQ TTP. Soft, no objective distension. No palpable masses or obvious organomegaly. ?No guarding, no rebound tenderness or other peritoneal findings. : No flank tenderness. Neuro: Alert. Gross movement of all extremities intact. ? Psych: Calm. Cooperative. MSK: No grossly visible deformity. Vital signs: See flowsheet Vital Signs: Vital Signs - 24 hr 10/02/24 15:22 10/02/24 15:28 Temperature 97.3 F 97.3 F Pulse Rate 56 56 Respiratory Rate 18 18 Blood Pressure 117/65 117/65 Pulse Oximetry 99 99 Oxygen Delivery Method Room Air Room Air BMI result Body Mass Index 28.2 Course Course Course Narrative: 59 yo female with PMH of c diff enteritis 2023, diverticular disease, hemorrhoids, IBS here today with c/o 2 days of n/v/diarrhea but with worsening pain of LLQ x 2 weeks. She thinks it is diverticulitis it feels the same. She notes she sees a GI for chronic n/v and pain. This feels worse. She has not been on any antibiotics in the last 4 weeks. Will obtain urine, CT scan, she c/o of a lot diarrhea. this is a RAPID medical screening exam the rest of the history and physical exam is to be done by the main provider. JOSE 10/02/24 948am Medical Decision Making Medical Decision Making MDM Narrative: Medical Decision Makin-year-old female left lower quadrant pain Plan for CT patient does not need analgesia at this time ct; MPRESSION: Wall thickening of the rectosigmoid colon suggestive of colitis. Additional focal collapsed areas of the colon could represent additional areas of colitis, although neoplasm is not excluded. Colonoscopy is recommended. Plan for shared decision-making discussion I would recommend watch and wait approach as this may be a viral gastroenteritis or food-borne illness however the patient has had self-reported diverticulitis in the past she may need delayed colonoscopy once improved. I will prescribe Augmentin but recommend a wait and watch approach Preliminary Favored Differential Diagnosis: Diverticulitis, colitis, adnexal pathologyamong additional considered etiologies Testing Interpreted Independently: ?See below for details Radiology or Lab testing Results Reviewed: ?See below for details Consults: ?See below for details Independent Historians/External Chart Reviews: ?See below for details Social Determinants of Health Impacting MDM/Planning: ?See below for details Lab Data 10/02/24 10:03 10/02/24 10:03 Labs: Lab Results 10/02/24 10/02/24 10/02/24 Range/Units 10:03 12:24 15:25 WBC 6.7 (4.8-10.8) X10*3/uL RBC 4.52 (4.20-5.50) X10*6/uL Hgb 12.1 (12.0-16.0) g/dl Hct 38.2 (37.0-47.0) % MCV 84.5 (80.0-98.0) fL MCH 26.8 L (27.0-33.0) pg MCHC 31.7 (31.0-35.0) g/dl RDW 13.7 (11.0-16.0) % Plt Count 324 (160-400) X10*3/uL MPV 9.3 L (9.4-12.3) fL Immature Gran % (Auto) 0.1 (0.0-0.4) % Neut % (Auto) 47.6 (45-73) % Lymph % (Auto) 42.4 H (20-40) % [place] % (Auto) 8.0 (2-11) % Eos % (Auto) 1.3 (0-4) % Baso % (Auto) 0.6 (0-2) % Lymph # (Auto) 2.9 (1.2-4.9) X10*3/uL [place] # (Auto) 0.5 (0.1-1.2) X10*3/uL Eos # (Auto) 0.1 (0.0-0.4) X10*3/uL Baso # (Auto) 0.0 (0.0-0.2) X10*3/uL Abs Immat Gran (auto) 0.01 (0.00-0.03) X10*3/uL Absolute Neuts (auto) 3.2 (2.0-8.3) x10*3/uL Absolute Nucleated RBC 0.000 (0.0-0.012) X10*3/uL Nucleated RBC % (auto) 0.0 (0.0-0.2) /100WBC Sodium 138 (135-145) mmol/L Potassium 4.8 (3.3-5.1) mmol/L Chloride 105 (96-108) mmol/L Carbon Dioxide 28 (22-29) mmol/L Anion Gap 10 L (12-20) BUN 18 H (9-16) mg/dL Creatinine 0.85 (0.5-1.4) mg/dL Estim Creat Clear Calc 69.5 Estimated GFR > 60 Random Glucose 99 (60-115) mg/dL Calcium 9.4 (8.4-10.2) mg/dL Magnesium 2.2 (1.6-2.6) mg/dL Total Bilirubin 0.3 (0.0-1.0) mg/dL Direct Bilirubin 0.1 (0.0-0.5) mg/dL AST 22 (5-31) U/L ALT 22 (0-31) U/L Alkaline Phosphatase 70 (39-117) U/L Total Protein 7.6 (6.5-8.0) g/dL Albumin 4.6 (3.5-5.0) g/dL Lipase 39 (8-78) U/L Urine Color Yellow Urine Appearance Clear Urine pH 5.0 (5.0-9.0) Ur Specific [place] 1.025 (1.005-1.025) Urine Protein Trace (Neg-Trace) mg/dL Urine Glucose (UA) Negative (Negative) mg/dL Urine Ketones Trace (Negative) mg/dL Urine Blood Trace H (Negative) Urine Nitrite Negative (Negative) Ur Leukocyte Esterase Negative (Negative) Urine RBC 0-2 (0-2) /HPF Urine WBC 0-5 (0-5) /HPF Ur Squamous Epith Cells 3-5 (0-2) /HPF Urine Bacteria 1+ (None Seen) Hyaline Casts 3-5 (0-2) /LPF Stl C. cayetanensis PCR Not Detected (Not Detect.) Stool Rotavirus A PCR Not Detected (Not Detect.) Stl Adenov F 40/41 PCR Not Detected (Not Detect.) Stool Astrovirus (PCR) Not Detected (Not Detect.) Stool Campylobacter PCR Not Detected (Not Detect.) Stool Cryptosporidium PCR Not Detected (Not Detect.) Stl Sh Tox Pr E STEC PCR Not Detected (Not Detect.) Stool E coli O157 PCR Not applicable (Not Detect.) Stl Enterotoxigenic E PCR Not Detected (Not Detect.) Stool EPEC (PCR) Not Detected (Not Detect.) Stool EAEC (PCR) Not Detected (Not Detect.) Stl E. histolytica PCR Not Detected (Not Detect.) Stool Giardia Lamblia PCR Not Detected (Not Detect.) Stl P. shigelloides PCR Not Detected (Not Detect.) Stool Salmonella PCR Not Detected (Not Detect.) Stool Sapovirus (PCR) Not Detected (Not Detect.) Stl Shigella/EIEC PCR Not Detected (Not Detect.) St Y.enterocolitica PCR Not Detected (Not Detect.) Stool Vibrio (PCR) Not Detected (Not Detect.) Stl Vibrio cholerae PCR Not Detected (Not Detect.) Stl Norovirus GI/GII PCR Not Detected (Not Detect.) C. difficile Tox B Gene NEGATIVE (Negative) Medications Administered Discontinued Medications Generic Name Dose Route Start Last Admin Trade Name Freq PRN Reason Stop Dose Admin Iohexol 100 ml 10/02/24 14:49 10/02/24 14:52 Iohexol 350 Mg/Ml 100 Ml Infus..Btl IV 10/02/24 14:50 85 ml ONCE ONE Administration Discharge Plan Discharge Clinical Impression: Colitis Patient Disposition: Home, Self-Care Instructions: Acute Diarrhea (ED) Additional Instructions: DISCHARGE DIAGNOSES: Inflammation of the colon, associated with vomiting and diarrhea HISTORY OF PRESENTATION: ?Nausea vomiting and diarrhea abdominal discomfort EMERGENCY DEPARTMENT COURSE,TESTS, TREATMENTS: While in the ED today you had lab work that was generally reassuring. You had a CT scan that showed the findings copied in the text below in brief summary show inflammation of the colon wall DISCHARGE MEDICATIONS: ?[We have made no changes to your regular medication regimen] we have added on Augmentin but as we discussed we recommend you trying to wait 48-72 hours to see if you improve without treatment as this may be caused by virus or food-borne illness that may resolve on its own FOLLOW-UP: ?Call your primary or general physician soon as possible to discuss your symptoms, your ED visit and to discuss follow up plans Call your primary doctor and/or GI for a delayed colonoscopy INSTRUCTIONS ?& RETURN PRECAUTIONS: If any symptoms change first call your primary physician, if it is after-hours your primary doctors office should have a provider national van truck driver you can speak with. If the symptoms are severe or very concerning to you then call 911 or return to the ED. [07] Neymar Joshi MD Emergency Physician [facility] Prescriptions: New amoxicillin-pot clavulanate 875-125 mg tablet 1 tab PO BID 7 Days Qty: 14 0RF No Action oxycodone 5 mg tablet 5 mg PO TID PRN (Reason: pain) Qty: 20 0RF Rx Instructions: Partial Fill upon patient request. tramadol 50 mg tablet 50 mg PO TID PRN (Reason: pain) Qty: 30 0RF famotidine 40 mg tablet 40 mg PO BID Qty: 180 0RF oxycodone-acetaminophen 5-325 mg tablet 1 tab PO Q6H PRN (Reason: pain) Qty: 25 0RF Rx Instructions: Partial Fill upon patient request. docusate sodium [Colace] 100 mg capsule 100 mg PO BID Qty: 60 2RF ibuprofen 600 mg tablet 600 mg PO Q6H PRN (Reason: pain) Qty: 20 0RF lisinopril 20 mg tablet 20 mg PO DAILY sumatriptan succinate 100 mg tablet 100 mg PO DAILY PRN (Reason: migraine) nortriptyline 50 mg capsule 100 mg PO BEDTIME metoprolol tartrate 25 mg tablet 25 mg PO BID diphenoxylate-atropine [Lomotil] 2.5-0.025 mg tablet 1 tab PO TID PRN (Reason: diarrhea) Qty: 20 0RF Emgality Syringe 120 mg/mL syringe subcut buspirone 15 mg tablet 15 mg PO BID eszopiclone 2 mg tablet 2 mg PO BEDTIME aripiprazole 15 mg tablet 15 mg PO QAM Cholestyramine Light 4 gram powder in packet 4 g PO BID Qty: 60 1RF Rx Instructions: administer w/meal; avoid other meds within 1hr before or 4-6hr after dose cholecalciferol (vitamin D3) 25 mcg (1,000 unit) tablet 25 mcg PO QAM Qty: 90 1RF Interventions: ED Discharge Assessment Last Done: 10/02/24 15:28 Discharge Date/Time: 10/02/24 15:33 Print Language: Danish
[2024-10-02 09:48] VITALS: BP 132/74; PULSE 79; RESP 18; TEMP 36.4; O2SAT 98; BMI 28.2
[2024-10-02 10:07] LABS: MANUAL DIFF FLAG NO
[2024-10-02 10:14] LABS: Hematocrit 38.2 % (37.0-47.0); Hemoglobin 12.1 g/dl (12.0-16.0); Imm Gran Abs Auto 0.01 X10*3/uL (0.00-0.03); Imm Gran Pct Auto 0.1 % (0.0-0.4); Lymphocytes Absolute Auto 2.9 X10*3/uL (1.2-4.9); Mean Corpuscular HGB Conc 31.7 g/dl (31.0-35.0); Mean Corpuscular Hemoglobin 26.8 pg (27.0-33.0); Mean Corpuscular Volume 84.5 fL (80.0-98.0); NRBC Abs Auto 0.000 X10*3/uL (0.0-0.012); NRBC Pct Auto 0.0 /100WBC (0.0-0.2); Platelet Count 324 X10*3/uL (160-400); Red Blood Count 4.52 X10*6/uL (4.20-5.50); White Blood Count 6.7 X10*3/uL (4.8-10.8)
[2024-10-02 10:24] LABS: Alanine Aminotransferase 22 U/L (0-31); Albumin Level 4.6 g/dL (3.5-5.0); Alkaline Phosphatase 70 U/L (39-117); Anion Gap 10 (12-20); Aspartate Amino Transferase 22 U/L (5-31); Blood Urea Nitrogen 18 mg/dL (9-16); Calcium 9.4 mg/dL (8.4-10.2); Carbon Dioxide 28 mmol/L (22-29); Chloride 105 mmol/L (96-108); Creatinine Clr Calc Pharmacy 69.5; Estimated Glomerular Filt Rate > 60; Lipase 39 U/L (8-78); Magnesium 2.2 mg/dL (1.6-2.6); Potassium 4.8 mmol/L (3.3-5.1); Sodium 138 mmol/L (135-145); Total Protein 7.6 g/dL (6.5-8.0)
[2024-10-02 13:48] LABS: CDiff Gene PCR NEGATIVE (Negative)
[2024-10-02 14:42] LABS: E. coli EAEC Not Detected (Not Detect.); E. coli EPEC Not Detected (Not Detect.); E. coli ETEC Not Detected (Not Detect.); E. coli STEC Not Detected (Not Detect.); Shigella sp./EIEC Not Detected (Not Detect.)
[2024-10-02] MEDS: iohexoL 350 MG/ML 100 ML INFUS..BTL IV (14:52)
[2024-10-02 15:22] VITALS: BP 117/65; PULSE 56; RESP 18; TEMP 36.3; O2SAT 99
[2024-10-02 15:28] VITALS: BP 117/65; PULSE 56; RESP 18; TEMP 36.3; O2SAT 99
[2024-10-02 15:40] LABS: Appearance Urine Clear; Glucose Urine UA Negative (Negative); PH 5.0 (5.0-9.0); Specific Gravity - Urine 1.025 (1.005-1.025); UMIC TRIGGER UACC YES
== END 2024-10-02 15:33 | disposition home or self-care (01) ==
PROVIDERS: Emergency Medicine; Emergency Provider Emergency Medicine; PCP Nurse Practitioner Family
DX: K52.89 Other specified noninfective gastroenteritis and colitis (principal); Z87.19 Personal history of other diseases of the digestive system; Z79.899 Other long term (current) drug therapy
CPT/HCPCS: 36415; 74177; 80048; 80076; 81001; 83690; 83735; 85025; 87493; 87507; 99284; Q9967

== ENCOUNTER → 2024-10-02 09:49 | Outpatient (BNV) | payer MEDICAID, SELFPAY | PROVIDERS: Emergency Provider Emergency Medicine; PCP Nurse Practitioner Family; Visit Provider Radiology Diagnostic Radiology | DX: R10.32 Left lower quadrant pain (principal); R19.7 Diarrhea, unspecified; K63.89 Other specified diseases of intestine; Z87.19 Personal history of other diseases of the digestive system | CPT/HCPCS: 74177 ==

== ENCOUNTER 2024-10-09 09:40 | Outpatient (REF) | payer MEDICAID, SELFPAY ==
--- NOTE | ~2024-10-09 | US_ITS ---
EXAMINATION: US RETROPERITONEAL LIMITED (RENAL ONLY) CLINICAL INFORMATION: Microscopic hematuria. Cyst of kidney.. COMPARISON: September 11, 2023. Correlated to CT dated September 24, 2024. TECHNIQUE: Real-time ultrasound kidneys using grayscale technique. FINDINGS: RIGHT KIDNEY: 10 x 5 x 5 cm (SAG x AP x TRV). Volume: 132 cc. Normal echotexture. Normal renal cortical thickness. No hydronephrosis. There is a 0.9 cm exophytic anechoic lesion without septations or nodular components or flow on color Doppler interrogation centered in the midportion. LEFT KIDNEY: 10 x 5 x 5 cm (SAG x AP x TRV). Volume: 121 cc. Normal echotexture. Normal renal cortical thickness. No hydronephrosis. There is a 1.5 cm well-defined ovoid shaped anechoic lesion at the corticomedullary junction of the midportion without septations or nodular component or flow on color Doppler interrogation. US/US renal BI IMPRESSION: No hydronephrosis. Bilateral renal simple cysts.. Electronically signed by: Jose Vaca MD 10/09/2024 10:57 AM EDT
--- OUTSIDE RECORDS SUMMARY | 2024-10-09 10:30 | XMS_ITS | Encounter Summary ---
Author Organization [employer] Address [address] [place] [address] [place] [address] Care Team Providers Care Student Support Services Director Name Role Phone Claribel Grissom MD Primary Care Provider Vidhya Parker BARN AND PROPERTY MANAGER Primary Care Provider [phone] NameLes MD Primary Care Provider [phone] Encounter Details Date Type Department Care Team ([facility] Contact Info) Description 01/25/2022 Telephone [facility] MEDICINE [address] [place] [phone] Claribel Grissom MD Social History Tobacco Use [...] Upcoming Encounters Date Type Department Care Team ([facility] Contact Info) Description 11/17/2024 10:15 AM EDT Office Visit [facility] MEDICINE [address] [place] [id number] Les Torres MD [address] [place] [phone] documented as of this encounter Visit Diagnoses Not on filedocumented in this encounter Care Teams Student Support Services Director Relationship Specialty Start Date End Date Claribel Grissom MD PCP - General Family Medicine 12/09/18 02/06/22 Vidhya Padilla FNP [address] [place] [address] PCP - General Family Medicine 02/07/22 10/08/23 Les Torres MD [address] [place] [address] PCP - General Internal Medicine 10/09/23 documented as of this encounter
--- OUTSIDE RECORDS SUMMARY | 2024-10-09 10:30 | XMS_ITS | Encounter Summary ---
Author Organization [employer] Address [address] [place] [address] [address] [place] [address] Care Team Providers Care Bag Machine Operator Helper Name Role Phone Vidhya Padilla Primary Care Provider [phone] NameLes MD Primary Care Provider [phone] Reason for Visit * Reason Comments Med Change Request Encounter Details Date Type Department Care Team ([facility] st Contact Info) Description 08/02/[address] [facility] MEDICINE [address] [place] [address] Vidhya Padilla FNP [address] [place] [address] Social History Tobacco Use Types Packs/Day Years [...] Description 11/17/2024 10:15 AM EDT Office Visit [facility] [address] [place] [address] NameLes MD [address] [place] [phone] documented as of this encounter Visit Diagnoses Not on filedocumented in this encounter Additional Health Concerns Assessment Noted Time PHQ-9 Depression Total Score: 18 023 9:14 AM EDT documented as of this encounter Care Teams Bag Machine Operator Helper Relationship Specialty Start Date End Date Vidhya Padilla FNP [address] [place] [id number] PCP - General Family Medicine 02/07/22 10/08/23 Name, MD Les [address] [place] [id number] PCP - General Internal Medicine 10/09/23 documented as of this encounter
--- OUTSIDE RECORDS SUMMARY | 2024-10-09 10:30 | XMS_ITS | Encounter Summary ---
Author Organization [facility] Address [address] [place] [address] Care Team Providers Care Market Reporter Name Role Phone Vidhya Padilla TOBACCO SWEEPER Primary Care Provider Reason for Visit * Reason Onset Date Comments PAC Appt Request - New 07/27/2022 Encounter Details Date Type Department Care Team ([facility] Contact Info) Description 07/27/2022 Telephone [facility] [address] [place] [phone] Telephone Intake, Staff PAC Appt Request - [...] you, Marilu Sen * Telephone Encounter - Marliu Quintero - 08/02/2022 10:11 AM EDT Referring physician office called in checking on the status of when pt will be scheduled for a GI appt. Please reach out to pt for scheduling. * Telephone Encounter - Fede Pineda - 07/27/2022 2:48 PM EDT Patient has referral for diverticulitis, DT wants appt within 4 weeks, first available is February, please call patient with bellows assembler to schedule appt. documented in this encounter Plan of Treatment Upcoming Encounters Date Type Department Care Team (Late st Contact Info) Description 10/15/2024 10:15 AM EDT Appointment [facility] [address] [place] [phone] Patsy Le MD [address] [place] [phone] 12/05/2024 10:00 AM EDT Follow-Up [facility] [address] [place] [address] Patsy Le MD [address] [place] [phone] 01/12/2025 9:00 AM EST Appointment [facility] [address] [place] [address] Giovany Machado MD [address] [place] [address] Tong Shultz RT(R) 02/09/2025 9:00 AM EST Follow-Up [facility] [address] [place] [address] Mary Maria MD [address] [place] [phone] documented as of this encounter Visit Diagnoses Not on filedocumented in this encounter Additional Health Concerns Infection Onset Date Last Indicated Resolved Time R/O C.diff 08/25/2022 08/25/2022 08/25/2022 3:19 PM EDT R/O C.diff 09/06/2022 09/06/2022 09/06/2022 12:3 1 PM EDT R/O C.diff 10/03/2022 10/03/2022 10/04/2022 4:31 AM EDT documented as of this encounter Care Teams Market Reporter Relationship Specialty Start Date End Date Vidhya Padilla NP [address] [place] [address] PCP - General Family Medicine 07/27/22 documented as of this encounter
--- OUTSIDE RECORDS SUMMARY | 2024-10-09 10:30 | XMS_ITS | Encounter Summary ---
Author Organization [facility] Address [address] [place] [address] Care Team Providers Care Auto Body Estimator Name Role Phone Melyssa Alonso MD Primary Care Provider [phone] Encounter Details Date Type Department Care Team (Late st Contact Info) Description 01/10/2021 Orders Only [facility] [address] [place] [phone] Rehan Gerard, RN [address] [place] [phone] Medications Social History Tobacco Use Types Packs/Day [...] on filedocumented in this encounter Care Teams Auto Body Estimator Relationship Specialty Start Date End Date Melyssa Alonso MD [facility] [address] [place] [address] PCP - General Internal Medicine 07/15/20 documented as of this encounter
--- OUTSIDE RECORDS SUMMARY | 2024-10-09 10:30 | XMS_ITS | Encounter Summary ---
Author Organization [employer] Address [address] [place] [address] [address] [place] [address] Care Team Providers Care Vegetable Preparer Name Role Phone Vidhya Padilla Primary Care Provider Name, Les GARCIA Primary Care Provider [phone] Reason for Visit * Reason Onset Date Comments Referral 03/01/2022 Encounter Details Date Type Department Care Team ([facility] st Contact Info) Description 03/01/2022 Telephone [facility] [address] [place] [address] Vidhya Padilla FNP [address], [place] [phone] Referral Social History Tobacco Use Types Packs/Day [...] 03/01/2022 2:52 PM EST Telephone call to [facility] in regards to pt's referral. Pt needs referral for cyst in kidney andabdominal pain per [facility]. N28.1 and R10.9 respectively. * Telephone Encounter - Nolan Carlisle - 03/01/2022 9:03 AM EST Tc from pt requesting a referral to [facility]. Pt states she received a call and she was advised to request a referral do to something in her Left Kidney. Title Searcher was attempting togather details, pt was unable to provide details. [facility] [address] [place] [address] If any questions please contact pt at [phone] documented in this encounter Plan of Treatment Upcoming Encounters Date Type Department Care Team (Late st Contact Info) Description 11/17/2024 10:15 AM EDT Office Visit [facility] [address] [place] [phone] NameLes MD [address] [place] [phone] documented as of this encounter Visit Diagnoses Diagnosis Renal cyst- Primary Unspecified congenital cystic kidney disease documented in this encounter Care Teams Vegetable Preparer Relationship Specialty Start Date End Date Vidhya Padilla FNP [address] [place] [phone] PCP - General Family Medicine 02/07/22 10/08/23 Les Torres MD [address] [place] [phone] PCP - General Internal Medicine 10/09/23 documented as of this encounter
--- OUTSIDE RECORDS SUMMARY | 2024-10-09 10:30 | XMS_ITS | Clinical Summary ---
Author Organization [employer] Address [address] [place] [address] 7 [place] [address] Care Team Providers Care Open Die Inspector Name Role Phone Name, Les GARCIA Primary Care Provider [phone] Allergies Active Allergy Reactions Criticality Noted Date Comments Bupropion Swelling,Angioedema High 11/28/2016 Penicillins Rash Low 03/31/2020 Medications dicyclomine (Bentyl) 20 MG tablet TAKE 2 TABLETS 4 TIMES A DAY 01/05/20 22 Active docusate sodium (Colace) 100 MG capsule TAKE 1 CAPSULE BY MOUTH TWICE A DAY 01/22/20 22 Active nortriptyline (Pamelor) 50 MG capsule [...] DAY NEEDED FOR NAUSEA AND VOMITING 05/28/19 Active [employer] Witch Aixa pad APPLY TOPICALLY IF NEEDED FOR IRRITATION OR HEMORRHOIDS. *NC* 07/01/19 Active metoprolol tartrate (Lopressor) 25 MG tablet TAKE 1 TABLET BY MOUTH TWICE A DAY 180 tablet 3 10/29/19 24 Active cholecalciferol (Vitamin D3) 25 MCG (1000 UT) tabletIndications :Vitamin D insufficiency TAKE 1 TABLET BY MOUTH EVERY DAY IN THE MORNING 90 tablet 1 01/14/20 24 Active cholestyramine light (Prevalite) 4 g packet USE 1 PACKET 2 TIMES A DAY ADMINISTER W/MEAL AVOID OTHER MEDS WITHIN 1HR BEFORE OR 4-6HR AFTER DOSE 08/02/19 25 Active esomeprazole (NexIUM) [address] capsule Take 1 capsule by mouth Once per day. 06/01/19 25 Active eszopiclone (Lunesta) 2 MG tablet Take 2 mg by mouth if needed at bedtime for sleep. 07/17/19 Active famotidine (Pepcid) 40 MG tablet Take 1 tablet by mouth 2 times daily. 06/10/19 25 Active magnesium gluconate (Magonate) 500 MG tablet Take 1 tablet by mouth Once per day. Active riboflavin (vitamin B2) 100 mg tablet tablet Take 4 tablets by mouth Once per day. 07/05/19 25 Active traMADol (Ultram) 50 MG tablet Take 1 tablet by mouth every 8 (eight) hours if needed for pain. 07/11/19 25 Active Emgality 120 MG/ML prefilled syringe INJECT 120 MG SUBCUTANEOUS EVERY 28 DAYS 08/02/19 25 Active lisinopril 20 MG tabletIndications :Primary hypertension TAKE 1 TABLET BY MOUTH EVERY DAY 90 tablet 1 09/10/19 25 Active Active Problems Problem Noted Date [...] Encounters Date Type Department Care Team Description 10/02/2024 Orders Only GENERIC EXTERNAL DATA DEPARTMENT Provider, Generic External Data 09/08/2024 Refill [facility] [address] [place], [place] [phone] Name, MD Les Primary hypertension 09/05/2024 Telephone [facility] [address] [place], [place] [phone] Miladys Falk [place] jason recall 08/22/2024 1:30 PM EDT Office Visit [facility] [address] [place] [address] Brock, Lakshmi, OD Nuclear senile cataract of both eyes (Primary Dx); Chorioretinal scar, right eye; Meibomian gland disease, unspecified laterality; H/O laser iridotomy; Presbyopia 08/22/2024 Travel from Last 3 Months Immunizations Immunization Administration [...] Description 11/17/2024 10:15 AM EDT Office Visit [facility] [address] [place] [address] Name, MD Les [address] [place] [address] Health Maintenance Due Date Last Done Comments CT Colonography 1964 FIT DNA/Cologuard 1964 FIT 1964 FOBT 1965 HIV Screening 1965 Sigmoidoscopy 1965 Disability Screening 1964 Alcohol/Substance Use Screening 1976 Pap Smear 1985 Cervical Cancer Screening 1994 HPV/Cotest 1994 Pneumococcal Vaccine: 50+ Years (1 of 1 - PCV) 2014 Depression Monitoring 11/30/2022 05/31/2022, 023 SDOH Screening 06/01/2023 05/31/2022 COVID-19 Vaccine ( season) 2024 12/16/2021, 12/29/2020, 06/16/2020, Additional history exists Influenza [...] Procedure Name Priority Date/Time Associated Diagnosis Comments URINALYSIS, COMPLETE, WITH REFLEX TO CULTURE Routine 10/02/2024 3:[address] ABDOMEN PELVIS W CONTRAST Routine 10/02/2024 1:40 PM EDT CDIFF GENE PCR Routine 10/02/2024 12:24 PM EDT GASTROINTESTINAL PANEL Routine 12:24 PM EDT LIPASE Routine 10/02/2024 10:03 AM EDT MAGNESIUM Routine 10/02/2024 10:03 AM EDT BASIC METABOLIC PANEL Routine 10/02/2024 10:03 AM EDT HEPATIC FUNCTION PANEL Routine 10:03 AM EDT CBC WITH AUTO DIFFERENTIAL Routine 10/02/2024 10:03 AM EDT CULTURE, URINE, ROUTINE Routine 10/03/19 8:16 AM EDT BACTERIAL VAGINOSIS PANEL Routine 10/02/2024 8:16 AM EDT BI MAMMOGRAM SCREENING TOMOSYNTHESIS BILATERAL Routine 03/10/2024 12:48 PM EST HEPATITIS PANEL, GENERAL Routine 024 10:20 AM EST HM COLONOSCOPY Routine 05/10/2022 8:39 AM EDT LIPID PANEL, STANDARD Routine 08/05/2021 9:50 AM EDT from Last 3 Months or Most Recently Relevant to Health Maintenance Results * (ABNORMAL) Urinalysis, Complete, with Reflex to Culture (10/02/2024 3:25 PM EDT) Color Urine Yellow [facility] Appearance Urine Clear [facility] PH 5.0 5.0 - 9.0 [facility] Glucose Urine UA Negative Negative mg/dL [facility] Urine Blood Trace(A) Negative [facility] Specific [place] - Urine 1.025 1.005 - 1.025 [facility] Urine Protein Trace Neg-Trace mg/dL [facility] Urine Ketones Trace Negative mg/dL [facility] Nitrite Urine Negative Negative [facility] Leukocyte Esterase Urine Negative Negative [facility] RBC Urine 0-2 0 - 2 /HPF [facility] Urine WBC 0-5 0 - 5 /HPF [facility] Urine Squamous Epithelial Cell 3-5 0 - 2 /HPF [facility] Urine Bacteria 1+ None Seen [facility] Hyaline Casts, Urine 3-5 0 - 2 /LPF [facility] 10/02/2024 3:25 PM EDT 10/02/2024 3:28 PM EDT Narrative [facility] - 10/02/2024 3:46 PM EDT Urine, Clean Catch us Generic External Data Provider LAB URINE ORDERAB LES Final Result [facility] [address] [place] [phone] * CT Abdomen Pelvis w/ Contrast (10/02/2024 1:40 PM EDT) Anatomical Region Laterality Modality Body, Pelvis, Abdomen Computed T omography 10/02/2024 1:40 PM EDT Narrative 10/02/2024 3:19 PM EDT [address] [address] [address] Scan Report Signed Patient: Kacy Merritt MR#: [id number] 9 : 1965 Acct:[id number] Age/Sex: 59 / F ADM Date: 10/02/24 Loc: HO.ED Attending Dr: Ordering Physician: Nell Reyes DO Date of Service: 10/02/24 Procedure(s): CT abdomen pelvis w IV con Accession Number(s): [id number] cc: Vidhya Padilla DIRECTOR INFORMATION; Nell Reyes DO Report Number: [id number]: Total DLP = 624.00 mGy-cm EXAMINATION: CT ABDOMEN PELVIS WITH IV CONTRAST HISTORY: LLQ Pain diarrhea hx of diverticulitis COMPARISON: Comparison is made with the prior examination dated 11/07/2023. TECHNIQUE: CT scan of the abdomen and pelvis was performed following administration of 85 mL Omnipaque 350 using standard departmental protocol. Coronal and sagittal reformatted images were generated and reviewed. Oral contrast material was not administered at the request of the referring physician. This CT exam was performed with one or more of the following dose reduction techniques: automated exposure control, adjustment of the mA and/or kV according to patient size, use of iterative reconstruction technique. DLP: 624 mGy-cm FINDINGS: LOWER CHEST: The visualized lung bases are clear. There is no pleural effusion. CARDIOVASCULATURE: The heart is normal in size. There is no pericardial effusion. LIVER: The liver is normal in size and contour. There is a subcentimeter blush of enhancement in the left lobe without change. This likely represents a flash filling hemangioma. The hepatic and portal veins are patent. GALLBLADDER / BILE DUCTS: The gallbladder is unremarkable. There is no intra or extrahepatic biliary ductal dilatation. SPLEEN: The spleen is normal in size. No focal splenic lesion is identified. PANCREAS: The pancreas is unremarkable in appearance. ADRENAL GLANDS: Within normal limits. KIDNEYS/RETROPERITONEUM: No renal calculi are identified. There is no hydronephrosis. There is a probable 1.5 cm cyst at the lower pole of the left kidney. LYMPH NODES: No abdominal or pelvic lymphadenopathy. VASCULATURE: The abdominal aorta is normal in caliber. MESENTERY/PERITONEUM: No free fluid. No masses. There is no free intraperitoneal gas. STOMACH: The stomach is collapsed, limiting evaluation. SMALL BOWEL: The small bowel is normal in caliber. COLON: There are multiple focal collapsed areas of the colon. Underlying neoplasm in these regions is not excluded. These are scattered throughout the entire colon. There is more prominent diffuse wall thickening of the sigmoid colon and rectum. There is no significant diverticulosis and no evidence of diverticulitis. APPENDIX: Normal. URINARY BLADDER/PELVIC ORGANS: The urinary bladder is collapsed, limiting evaluation. The patient is status post hysterectomy. BONES / SOFT TISSUES: No suspicious bony or soft tissue abnormalities. CT/CT abdomen pelvis w IV con IMPRESSION: Wall thickening of the rectosigmoid colon suggestive of colitis. Additional focal collapsed areas of the colon could represent additional areas of colitis, although neoplasm is not excluded. Colonoscopy is recommended. Electronically signed by: Fawad Pearson MD 10/02/2024 03:16 PM EDT Dictated By: Fawad Pearson MD Signed By: <Electronically signed by Fawad Pearson MD in OV> 10/02/24 1516 DD/ 1340 TD/TT: 10/02/24 1505 Pressurization Mechanic: Procedure Note Donotuseinterpreter, Image - 10/02/[address] [place] [address] [address] Scan Report Signed Patient: Meghan Merritt#: [id number] 9 : 1965Acct:[id number] Age/Sex: 59 / FADM Date: 10/02/24 Loc: HO.ED Attending Dr: Ordering Physician: Nell Reyes DO Date of Service: 10/02/24 Procedure(s): CT abdomen pelvis w IV con Accession Number(s): [id number] cc: Vidhya Padilla DIRECTOR INFORMATION; Nell Reyes DO Report Number: [id number]: Total DLP = 624.00 mGy-cm EXAMINATION: CT ABDOMEN PELVIS WITH IV CONTRAST HISTORY: LLQ Pain diarrhea hx of diverticulitis COMPARISON: Comparison is made with the prior examination dated 11/07/2023. TECHNIQUE: CT scan of the abdomen and pelvis was performed following administration of 85 mL Omnipaque 350 using standard departmental protocol. Coronal and sagittal reformatted images were generated and reviewed. Oral contrast material was not administered at the request of the referring physician. This CT exam was performed with one or more of the following dose reduction techniques: automated exposure control, adjustment of the mA and/or kV according to patient size, use of iterative reconstruction technique. DLP: 624 mGy-cm FINDINGS: LOWER CHEST: The visualized lung bases are clear. There is no pleural effusion. CARDIOVASCULATURE: The heart is normal in size. There is no pericardial effusion. LIVER: The liver is normal in size and contour. There is a subcentimeter blush of enhancement in the left lobe without change. This likely represents a flash filling hemangioma. The hepatic and portal veins are patent. GALLBLADDER / BILE DUCTS: The gallbladder is unremarkable. There is no intra or extrahepatic biliary ductal dilatation. SPLEEN: The spleen is normal in size. No focal splenic lesion is identified. PANCREAS: The pancreas is unremarkable in appearance. ADRENAL GLANDS: Within normal limits. KIDNEYS/RETROPERITONEUM: No renal calculi are identified. There is no hydronephrosis. There is a probable 1.5 cm cyst at the lower pole of the left kidney. LYMPH NODES: No abdominal or pelvic lymphadenopathy. VASCULATURE: The abdominal aorta is normal in caliber. MESENTERY/PERITONEUM: No free fluid. No masses. There is no free intraperitoneal gas. STOMACH: The stomach is collapsed, limiting evaluation. SMALL BOWEL: The small bowel is normal in caliber. COLON: There are multiple focal collapsed areas of the colon. Underlying neoplasm in these regions is not excluded. These are scattered throughout the entire colon. There is more prominent diffuse wall thickening of the sigmoid colon and rectum. There is no significant diverticulosis and no evidence of diverticulitis. APPENDIX: Normal. URINARY BLADDER/PELVIC ORGANS: The urinary bladder is collapsed, limiting evaluation. The patient is status post hysterectomy. BONES / SOFT TISSUES: No suspicious bony or soft tissue abnormalities. CT/CT abdomen pelvis w IV con IMPRESSION: Wall thickening of the rectosigmoid colon suggestive of colitis. Additional focal collapsed areas of the colon could represent additional areas of colitis, although neoplasm is not excluded. Colonoscopy is recommended. Electronically signed by: Fawad Pearson MD 10/02/2024 03:16 PM EDT Dictated By: Fawad Pearson MD Signed By: <Electronically signed by Fwaad Pearson MD in OV> 10/02/24 1516 DD/ 1340 TD/TT: 10/02/24 1505 Pressurization Mechanic: [facility] External Provider IMG CT PROCEDURES Final Result * CDiff Gene PCR (10/02/2024 12:24 PM EDT) Pathologist [facility] CDiff Gene PCR NEGATIVE Negative [facility] Comment:If C. difficile stro ngly suspected despite one negativetest, a second test may be sent vs. empiric treatment forC. difficile infection. 10/02/2024 12:2 4 PM EDT 10/02/2024 12:27 PM EDT Generic External Data Provider LAB BODY FLUIDS A ND STOOLS ORDERABLES Final Result [facility] [address] [place] [phone] * Gastrointestinal panel (10/02/2024 12:24 PM EDT) Campylobacter Not Detected Not Detect. [facility] Plesiomonas shigelloides Not Detected Not Detect. [facility] Salmonella Not Detected Not Detect. [facility] Vibrio Not Detected Not Detect. [facility] Vibrio cholerae Not Detected Not Detect. [facility] YERSINIA ENTEROCOLITICA Not Detected Not Detect. [facility] Enteroaggregative E. coli (EAEC) Not Detected Not Detect. [facility] Enteropathogenic E. coli (EPEC) Not Detected Not Detect. [facility] Enterotoxigenic E. coli (ETEC) lt/st Not Detected Not Detect. [facility] Shiga-like toxin-producing E. coli (STEC) stx1/stx2 Not Detected Not Detect. [facility] E coli O157 Not applicable Not Detect. [facility] Comment:E. coli containing t he O157 antigen are a subset ofShiga-like toxin- producing E. coli (STEC). Shigella/Enteroinvasive E. coli (EIEC) Not Detected Not Detect. [facility] Cryptosporidium Not Detected Not Detect. [facility] Cyclospora cayetanensis Not Detected Not Detect. [facility] Entamoeba histolytica Not Detected Not Detect. [facility] Giardia lamblia Not Detected Not Detect. [facility] Adenovirus F 40/41 Not Detected Not Detect. [facility] Astrovirus Not Detected Not Detect. [facility] Norovirus GI/GII Not Detected Not Detect. [facility] Rotavirus A Not Detected Not Detect. [facility] Sapovirus Not Detected Not Detect. [facility] Comment: All results must be correlated with clinical findings.Negative results do not exclude the possibility ofgastrointestinal infection and should not be used as thesole basis for diagnosis, treatment, or other managementdecisions. Virus, bacteria, and parasite nucleic acid maypersist in vivo independently of organism viability.Additionally, some organisms may be carriedasymptomatically.Detection of organism targets does not imply that thecorresponding organisms are infectious or are the causativeagents for clinical symptoms. There is a risk of falsenegative values due to the presence of sequence variants inthe gene targets of the assay, amplification inhibitors inspecimens, or inadequate numbers of organisms foramplification.The identification of several diarrheagenic E. colipathotypes has historically relied upon phenotypiccharacteristics. This panel targets genetic determinantscharacteristic of most pathogenic strains, but may notdetect all strains having phenotypic characteristics of apathotype.The performance of this test has not been established formonitoring treatment of infection with any of the panelorganisms.This assay is performed by Multiplexed PCR, utilizing [employer] Array. 10/02/2024 12:2 4 PM EDT 10/02/2024 12:27 PM EDT us Generic External Data Provider LAB MICROBIOLOGY - GENERAL ORDERABLES Final Result [facility] [address] [place] [phone] * (ABNORMAL) CBC auto differential (10/02/2024 10:03 AM EDT) White Blood Count 6.7 4.8 - 10.8 X10*3/uL [facility] Red Blood Count 4.52 4.20 - 5.50 X10*6/uL [facility] Hemoglobin 12.1 12.0 - 16.0 g/dl [facility] Hematocrit 38.2 37.0 - 47.0 % [facility] Mean Corpuscular Volume 84.5 80.0 - 98.0 fL [facility] Mean Corpuscular Hemoglobin 26.8(L) 27.0 - 33.0 pg [facility] Mean Corpuscular HGB Conc 31.7 31.0 - 35.0 g/dl [facility] Red Cell Distribution Width 13.7 11.0 - 16.0 % [facility] Platelet Count 324 160 - 400 X10*3/uL [facility] Mean Platelet Volume 9.3(L) 9.4 - 12.3 fL [facility] Neutrophils Percent Auto 47.6 45 - 73 % [facility] Imm Gran Pct Auto 0.1 0.0 - 0.4 % [facility] Lymphocytes Percent Auto 42.4(H) 20 - 40 % [facility] Monocytes Percent Auto 8.0 2 - 11 % [facility] Eosinophils Percent Auto 1.3 0 - 4 % [facility] Basophils Percent Auto 0.6 0 - 2 % [facility] NRBC Pct Auto 0.0 0.0 - 0.2 /100WBC [facility] Neutrophils Absolute Auto 3.2 2.0 - 8.3 x10*3/uL [facility] Imm Gran Abs Auto 0.01 0.00 - 0.03 X10*3/uL [facility] Lymphocytes Absolute Auto 2.9 1.2 - 4.9 X10*3/uL [facility] Monocytes Absolute Auto 0.5 0.1 - 1.2 X10*3/uL [facility] Eosinophils Absolute Auto 0.1 0.0 - 0.4 X10*3/uL [facility] Basophils Absolute Auto 0.0 0.0 - 0.2 X10*3/uL [facility] NRBC Abs Auto 0.000 0.0 - 0.012 X10*3/uL [facility] 10/02/2024 10:0 3 AM EDT 10/02/2024 10:06 AM EDT us Generic External Data Provider LAB BLOOD ORDERAB LES Final Result Performing Organization Address [facility] Co de Phone Number [facility] [address] [place] [phone] * Magnesium (10/02/2024 10:03 AM EDT) Magnesium 2.2 1.6 - 2.6 mg/dL [facility] 10/02/2024 10:0 3 AM EDT 10/02/2024 10:06 AM EDT us Generic External Data Provider LAB BLOOD ORDERAB LES Final Result Performing Organization Address [facility]/ZIP Co de Phone Number [facility] [address] [place] [phone] * Lipase (10/02/2024 10:03 AM EDT) Pathologist [facility] Lipase 39 8 - 78 U/L [facility] 10/02/2024 10:0 3 AM EDT 10/02/2024 10:06 AM EDT Generic External Data Provider LAB BLOOD ORDERAB LES Final Result Performing Organization Address [facility] Co de Phone Number [facility] [address] [place] [phone] * Hepatic Function Panel (10/02/2024 10:03 AM EDT) [facility] Bilirubin, Total 0.3 0.0 - 1.0 mg/dL [facility] Bilirubin, Direct 0.1 0.0 - 0.5 mg/dL [facility] Aspartate Amino Transferase 22 5 - 31 U/L [facility] Alanine Aminotransferase 22 0 - 31 U/L [facility] Total Protein 7.6 6.5 - 8.0 g/dL [facility] Albumin Level 4.6 3.5 - 5.0 g/dL [facility] Alkaline Phosphatase 70 39 - 117 U/L [facility] 10/02/2024 10:0 3 AM EDT 10/02/2024 10:06 AM EDT Generic External Data Provider LAB BLOOD ORDERAB LES Final Result Performing Organization Address [facility] Co de Phone Number [facility] [address] [place] [phone] * (ABNORMAL) Basic Metabolic Panel (10/02/2024 10:03 AM EDT) Pathologist [facility] Sodium 138 135 - 145 mmol/L [facility] Potassium 4.8 3.3 - 5.1 mmol/L [facility] Chloride 105 96 - 108 mmol/L [facility] Carbon Dioxide 28 22 - 29 mmol/L [facility] Anion Gap 10(L) 12 - 20 [facility] Urea Nitrogen (BUN) 18(H) 9 - 16 mg/dL [facility] Creatinine, Serum 0.85 0.5 - 1.4 mg/dL [facility] Creatinine Clr Calc Pharmacy 69.5 [facility] Comment:Provided height and weight: 162.56 cm,74.5 kg.eGFR (calculated from the MDRD study equation) and eCrCl(calculated from the Cockcroft-Gault equation) are based ondifferent parameters and may not yield comparable results.If eCrCl result is absurd, please check patient'sheight/weight. Estimated Glomerular Filt Rate >60 [facility] Comment:Chronic Kidney Disea se: Estimated GFR < 60 mL/min/1.14w7Dqugge Kidney Disease: Estimated GFR < 15 mL/min/1.73m2 Glucose 99 60 - 115 mg/dL [facility] Calcium 9.4 8.4 - 10.2 mg/dL [facility] 10/02/2024 10:0 3 AM EDT 10/02/2024 10:06 AM EDT us Generic External Data Provider LAB BLOOD ORDERAB LES Final Result [facility] [address] [place] [phone] * Bacterial Vaginosis (10/02/2024 8:16 AM EDT) TRICHOMONAS VAGINALIS DETECTION BY PCR NOT DETECTED Not Detect [facility] BACTERIAL VAGINOSIS DETECTION BY PCR NEGATIVE Negative [facility] Comment:The BV organism targ ets of the Xpert Xpress MVP test can becommensal in women; Xpert Xpress MVP positive results forbacterial vaginosis should be considered in conjunction withother clinical and patient information to determine thedisease status. Organisms that are not detected by the XpertXpress MVP test have also been reported to be associatedwith BV and aerobic vaginitis.The Xpert Xpress MVP test performance has not been evaluatedin patients under the age of 14. HEATHER GROUP DETECTION BY PCR NOT DETECTED Not Detect [facility] Heather glab krusei PCR NOT DETECTED Not Detect [facility] 10/02/2024 8:16 AM EDT 10/02/2024 2:10 PM EDT Generic External Data Provider LAB MICROBIOLOGY - GENERAL ORDERABLES Final Result Performing Organization Address [facility]/ZIP Co de Phone Number [facility] [address] [place] [phone] * Culture, Urine, Routine (10/02/2024 8:16 AM EDT) Urine Urine specimen obtained by clean catch procedure / Unknown 10/02/2024 8:16 AM EDT 10/02/2024 2:10 PM EDT Comment:UACC Narrative [facility] - 10/03/2024 9:10 AM EDT Urine Culture No growth. Specimen Source: Urine clean catch Generic External Data Provider LAB MICROBIOLOGY - GENERAL ORDERABLES Final Result Performing Organization Address [facility] Co de Phone Number [facility] [address] [place] [phone] * BI Mammogram Screening Tomosynthesis Bilateral (03/10/2024 12:48 PM EST) Anatomical Region Laterality Modality Breast Bilateral Mammography 03/10/2024 12:4 8 PM EST Narrative 03/16/2024 5:47 PM EST [facility] [address] [place] [address] Mammography Report Signed Patient: Kacy Merritt MR#: [id number] 9 : 1965 Acct:[id number] Age/Sex: 58 / F ADM Date: 03/10/24 Loc: HO.MAMMO Attending Dr: Vidhya Padilla NP Ordering Physician: Vidhya Padilla NP Results: 1Negativ e Date of Service: 03/10/24 Follow Up: 1 Year From Orig inal Mammogram Procedure(s): MM tomosynthesis screening BI Accession Number(s): [id number] cc: Vidhya Padilla DIRECTOR INFORMATION EXAMINATION: MM SCREENING DIGITAL BREAST TOMOSYNTHESIS, BILATERAL [...] 05:44 PM [facility] Dictated By: Daiana Segal DO Signed By: <Electronically signed by Daiana Segal DO in OV> 03/16/24 1744 DD/ 1248 TD/TT: 03/10/24 1308 Pressurization Mechanic: Procedure Note Donotuseinterpreter, Image - 03/16/2024 [facility] [address] [place], [place] [address] Mammography Report Signed Patient: Meghan Merritt#: [id number] 9 : 1965Acct:[id number] Age/Sex: 58 / FADM Date: 03/10/24 Loc: HO.MAMMO Attending Dr: Vidhya Padilla DIRECTOR INFORMATION Ordering Physician: Vidhya Padilla NPResults: 1Negativ e Date of Service: 03/10/24Follow Up: 1 Year From Orig inal Mammogram Procedure(s): MM tomosynthesis screening BI Accession Number(s): [id number] cc: Vidhya Padilla DIRECTOR INFORMATION EXAMINATION: MM SCREENING DIGITAL BREAST TOMOSYNTHESIS, BILATERAL [...] 03/16/24 1744 DD/ 1248 TD/TT: 03/10/24 1308 Pressurization Mechanic: us Vidhya Padilla WOODWORKING [employer]ENCH CARPENTER IMG BI PROCEDURES Edited Result - Final * Hepatitis Panel, General (03/14/2023 10:20 AM EST) Hepatitis A IgM Nonreactive Nonreactive [facility] Comment:IgM antibodies to QUEZ[place] V not detected; does not exclude earlyacute or recovered HAV infection. ~Hepatitis B Surface Antibody NONREACTIVE Nonreactive [facility] Comment:Nonreactive: < 8.00 mIU/mL Hepatitis B Core Antibody Nonreactive Nonreactive [facility] Hepatitis C Antibody Nonreactive Nonreactive [facility] Comment:Antibodies to HCV no t detected; does not exclude early acuteHCV infection. Hepatitis B Surface Ag Negative Negative [facility] 03/14/2023 10:2 0 AM EST 03/14/2023 10:26 AM EST us Generic External Data Provider LAB BLOOD ORDERAB LES Final Result [facility] [address] [place] [address] [phone] * Colonoscopy (05/10/2022 8:39 AM EDT) Colonoscopy Normal Normal Narrative Shanice Perez - 05/10/2022 8:39 AM EDT Recommended 3 year follow up ([facility]) Historical Provider HEALTH MAINTENANCE Edited Result - [...] LDL-C. Eliceo SS et al. ROLDAN. 2013;310(19): 9114-8421 (http://education.Meshify.com/faq/EBJ377) Non-HDL Cholesterol 181(H) <130 mg/dL (calc) [facility] Comment: For patients with diabetes plus 1 major ASCVD risk factor, treating to a non-HDL-C goal of <100 mg/dL (LDL-C of <70 mg/dL) is considered a therapeutic option. Triglycerides 126 <150 mg/dL [facility] 08/05/2021 9:50 AM EDT Claribel Grissom MD LAB BLOOD ORDERABLES Final R esult [facility] [address] from Last 3 Months or Most Recently Relevant to Health Maintenance Insurance [facility] C3 Care Teams Open Die Inspector Relationship Specialty Start Date End Date Name, MD Les [address] [place] [address] PCP - General Internal Medicine 10/09/23
--- OUTSIDE RECORDS SUMMARY | 2024-10-09 10:30 | XMS_ITS | Encounter Summary ---
Author Organization [facility] Address [address] [place] [address] [address] [place] [address] Care Team Providers Care Economic History Teacher Name Role Phone Vidhya Padilla Primary Care Provider Les Torres MD Primary Care Provider [phone] Encounter Details Date Type Department Care Team (Late Contact Info) Description 07/20/2022 Abstract [facility] [address] [place] [phone] Vidhya Padilla FNP [address] [place] [phone] Social History Tobacco Use Types Packs/Day Years [...] Description 11/17/2024 10:15 AM EDT Office Visit [facility] [address] [place] [phone] NameLes MD [address] [place] [address] documented as of this encounter Procedures Procedure Name Priority Date/Time Associated Diagnosis Comments COLONOSCOPY Routine 05/10/2022 8:39 AM EDT documented in this encounter Results * Colonoscopy (05/10/2022 8:39 AM EDT) Colonoscopy Normal Normal Narrative Shaniec Perez - 05/10/2022 8:39 AM EDT Recommended 3 year follow up ([facility]) us Historical Provider [facility] Edited Result - Final documented in this encounter Visit Diagnoses Not on filedocumented in this encounter Additional Health Concerns Assessment Noted Time PHQ-9 Depression Total Score: 18 023 9:14 AM EDT documented as of this encounter Care Teams Economic History Teacher Relationship Specialty Start Date End Date Vidhya Padilla FNP [address] [place] [address] PCP - General Family Medicine 02/07/22 10/08/23 Name, MD Les [address] [place] [address] PCP - General Internal Medicine 10/09/23 documented as of this encounter
--- OUTSIDE RECORDS SUMMARY | 2024-10-09 10:30 | XMS_ITS | Encounter Summary ---
Author Organization [facility] Address [address] [place] [address] 7 [place] [address] Care Team Providers Care Landscape Painter Name Role Phone Vidhya Padilla Primary Care Provider [phone] NameLes MD Primary Care Provider [phone] Encounter Details Date Type Department Care Team ([facility] Contact Info) Description 03/21/2022 Orders Only [facility] [address] [place] [address] Vidhya Padilla FNP [address] [place] [address] Sigmoid diverticulitis (Primary Dx) Social History Tobacco [...] Upcoming Encounters Date Type Department Care Team ([facility] Contact Info) Description 11/17/2024 10:15 AM EDT Office Visit [facility] [address] [place] [address] Name, MD Les [address] [place] [address] documented as of this encounter Visit Diagnoses Diagnosis Sigmoid diverticulitis- Primary Diverticulitis of colon (without mention of hemorrhage) documented in this encounter Care Teams Landscape Painter Relationship Specialty Start Date End Date Vidhya Padilla FNP [address] [place] [address] PCP - General Family Medicine 02/07/22 10/08/23 Name, MD Les [address] [place] [address] PCP - General Internal Medicine 10/09/23 documented as of this encounter
--- OUTSIDE RECORDS SUMMARY | 2024-10-09 10:30 | XMS_ITS | Clinical Summary ---
Author Organization [facility] Address [address] [place] [address] Care Team Providers Care Net Lead Developer Name Role Phone Melyssa Alonso MD Primary Care Provider [phone] Allergies Active Allergy Reactions Criticality Noted Date [...] 2) 2014 COVID-19 Vaccine (3 - season) 2024 06/16/2020, 2020 Influenza (#1) 2024 12/27/2018, 10/07, [...] Zoster (Zostavax) Discontinued Procedures * Due to [place] Internal Gaming law, this organization might not be sharing negative HIV tests. Procedure Name Priority Date/Time Associated Diagnosis Comments COMPREHENSIVE EYE EXAM 07/15/2020 from Last 3 Months or Most Recently Relevant to Health Maintenance Results * Due to [place] Internal Gaming law, this organization might not be sharing negative HIV tests. * COMPREHENSIVE EYE EXAM (07/15/2020) Fawad VALENCIA PROCEDURE Final Result from Last 3 Months or Most Recently Relevant to Health Maintenance Insurance MEDICAID MEDICAID Care Teams Net Lead Developer Relationship Specialty Start Date End Date Melyssa Alonso MD [address] [address] PCP - General Internal Medicine 07/15/20
--- OUTSIDE RECORDS SUMMARY | 2024-10-09 10:30 | XMS_ITS | Clinical Summary ---
Author Organization [facility] Address [address] [place] [address] Care Team Providers Care Surgical Instrument Technician Name Role Phone Vidhya Padilla PHOTOGRAPHY SALES ASSOCIATE Primary Care Provider [phone] Allergies Active Allergy Reactions Criticality Noted Date Comments Penicillins Unknown Bupropion Hcl Swelling High PER PT Medications hydroCHLOROt hiazide (HYDRODIURIL ) 12.5 mg tablet HydroCHLOROthiazide 12.5 MG Oral Tablet TAKE 1 TABLET DAILY. Refills: 0 Active Active lisinopril (PRINIVIL,ZE STRIL) 20 mg tablet Take 20 mg by mouth daily. 5 Active metoprolol tartrate (LOPRESSOR) 25 mg tablet Take 25 mg by mouth 2 times a day. 5 Active nortriptylin e (PAMELOR) 50 mg capsule TAKE 2 CAPSULES BY MOUTH ONCE A DAY 3 Active onabotulinum toxin A (BOTOX) 100 unit recon soln injection every 3 months. Acti ve ARIPiprazole (ABILIFY) 5 mg tablet Take 5 mg by mouth daily. Active dicyclomine (BENTYL) 10 mg capsule TAKE 1 TO 2 CAPSULES POR V A ORAL CUATRO VECES AL D A CUANDO SEA NECESARIO FOR CRAMPING Active ondansetron (ZOFRAN) 4 mg tablet Active senna 8.6 mg tablet Active SUMAtriptan (IMITREX) 100 mg tablet TAKE 1 AT ONSET OF MIGRAINE, MAY REPEAT IN 2 HOURS, MAXIMUM 2/DAY, 6/WEEK 12 tablet 024 Active magnesium gluconate (MAGONATE) 27 mg magnesium (500 mg) tablet Take 1 tablet (27 mg of elemental magnesium total) by mouth once a day. Take 1 tablet daily 30 tablet 025 Active riboflavin (VITAMIN B2) 100 mg tablet Take 4 tablets once a day 120 tablet Active Emgality Syringe 120 mg/mL syringeIndic ations:Intra ctable persistent migraine aura without cerebral infarction and without status migrainosus, Dizziness,Mu scle tension headache INJECT 120 MG SUBCUTANEOUS EVERY 28 DAYS 1 mL 025 Active galcanezumab -gnlm (Emgality Pen) 120 mg/mL pen injectorIndi cations:Intr actable persistent migraine aura without cerebral infarction and without status migrainosus, Dizziness,Mu scle tension headache INJECT 120 MG SUBCUTANEOUS EVERY 28 DAYS 1 mL 024 2024 Discontinued Active Problems Problem Noted Date [...] Encounters Date Type Department Care Team Description 10/03/2024 Refill [facility] Neurology [address] [place] [address] Mary Maria MD 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; Dizziness; Muscle tension headache 09/30/2024 8:33 AM EDT - 09/30/2024 11:59 PM EDT Hospital Encounter [facility] Neuro[facility] [address] [place] [address] Giovany Machado MD Georges Jhonny 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 (Primary Dx) Discharge Disposition: Home or Self Care (01) 09/30/2024 Orders Only [facility] [address] [place] [address] Giovany Machado MD 09/30/2024 Orders Only [facility] B [address] [place] [address] Patsy Le MD Bilateral occipital neuralgia (Primary Dx) 08/05/2024 Orders Only [facility] [address] [place] [address] Giovany Machado MD 07/25/2024 10:15 AM EDT Office Visit [facility] A [address] [place] [address] Patsy Le MD Bilateral occipital neuralgia (Primary Dx) from Last 3 Months Family History Medical [...] Info) Description 10/15/2024 10:15 AM EDT Appointment [facility] [address] [place] [address] Patsy Le MD [address] [place] [address] 12/05/2024 10:00 AM EDT Follow-Up [facility] A [address] [place] [address] Patsy Le MD [address] [place] [address] 01/12/2025 9:00 AM EST Appointment [facility] [address] [place] [address] Giovany Machado MD [address] [place] [address] Tong Shultz RT(R) 02/09/2025 9:00 AM EST Follow-Up [facility] Neurology [address] [place] [address] Mary Maria MD [address] [place] [address] Health Maintenance Due Date Last Done Comments Cervical Cancer Screening 1965 Cologuard 1965 Colon Cancer Screening 1965 Colonoscopy 1965 FOBT / Fit Test 1965 HIV Screening 1965 HPV and Pap Smear 1965 Hepatitis C Screening 1965 Pap Smear 1965 Sigmoidoscopy 1965 Pneumococcal Vaccine: 50+ Years (1 of 1 - PCV) 2014 Mammogram 01/26/2023 01/26/2021, 12/06, 11/15/2017 Alcohol/Substance Use Screening 02/06/2024 Depression Screening and Follow-Up 02/06/2024 Social Drivers of Health Annual Screening 02/06/2024 COVID-19 Vaccine ( season) 2024 12/16/2021, 12/29/2020, 06/16/2020, Additional history exists Influenza Vaccine (#1) 2024 , 11/17/2021, 12/29/2020, Additional history exists Basic Metabolic Panel 11/06/2024 11/07/2023, 024 Diabetes Screening 11/06/2026 11/07/2023, 0 03/14/2023, 07/18/2018 DTaP,Tdap,and Td Vaccines (3 - Td or Tdap) 07/20/2031 07/19/2021, 09/01/2010 RSV Vaccine (60+ years old and patients) (1 - 1-dose 75+ series) 05/20/2039 Zoster Vaccines Completed 10/18/2021, 07/19/2021 Hepatitis B Vaccines Aged Out No long er eligible based on patient's age to complete this topic Procedures * Due to [place] Q[place]f law, this organization might not be sharing negative HIV tests. Procedure Name Priority Date/Time Associated Diagnosis Comments GLUCOSE, RANDOM Routine 07/18/2018 11:28 AM EDT Optic nerve swelling Migraine aura, persistent, intractable from Last 3 Months or Most Recently Relevant to Health Maintenance Results * Due to [place] Q[place] law, this organization might not be sharing negative HIV tests. * Glucose, Random (07/18/2018 11:28 AM EDT) Glucose 89 70 - 99 mg/dL 07/18/2018 12:01 PM EDT [facility] Blood specimen (specimen) Structure of peripheral vein / Unknown Venipuncture / Unknown 07/18/2018 11:28 AM EDT 07/18/2018 11:35 AM EDT us Mary Maria MD LAB BLOOD ORDERABLES Final Resul t [facility] [address] [place] [address], from Last 3 Months or Most Recently Relevant to Health Maintenance Insurance [employer] Care Teams Surgical Instrument Technician Relationship Specialty Start Date End Date Vidhya Padilla NP [address] [place] [address] PCP - General Family Medicine 07/27/22
--- OUTSIDE RECORDS SUMMARY | 2024-10-09 10:31 | XMS_ITS | Encounter Summary ---
Author Organization [facility] Address [address] [place] [address] Care Team Providers Care Accounting Specialist Name Role Phone Vidhya Padilla ASSISTANT ASSOCIATE FULL PROFESSOR Primary Care Provider Encounter Details Date Type Department Care Team (Late Contact Info) Description 11/08/2020 Orders Only [facility] [address] [place] [address] Santy Madison MD [address] [place], [place] [phone] Social History Tobacco Use Types Packs/Day Years [...] Department Care Team (Late Contact Info) Description 10/15/2024 10:15 AM EDT Appointment [facility] [address] [place], [place] [phone] Patsy Le MD [address] [place], [place] [phone] 12/05/2024 10:00 AM EDT Follow-Up [facility] A [address] [place] [address] Patsy Le MD [address] [place] [address] 01/12/2025 9:00 AM EST Appointment [facility] Neurodiagnostics [address] [place] [address] Giovany Machado MD [address] [place] [address] Tong Shultz, RT(R) 02/09/2025 9:00 AM EST Follow-Up [facility] Neurology [address] [place] [address] Mary Maria MD [address] [place] [address] documented as of this encounter Visit Diagnoses Not on filedocumented in this encounter Additional Health Concerns Infection Onset Date Last Indicated Resolved Time R/O C.diff 08/25/2022 08/25/2022 08/25/2022 3:19 PM EDT R/O C.diff 09/06/2022 09/06/2022 09/06/2022 12:3 1 PM EDT R/O C.diff 10/03/2022 10/03/2022 10/04/2022 4:31 AM EDT documented as of this encounter Care Teams Accounting Specialist Relationship Specialty Start Date End Date Vidhya Padilla NP [address] [place] [address] PCP - General Family Medicine 07/27/22 documented as of this encounter
== END 2024-10-09 09:41 | disposition home or self-care (01) ==
LOC: HO.US 09:40
PROVIDERS: PCP Nurse Practitioner Family; Visit Provider Nurse Practitioner Family
DX: R31.29 Other microscopic hematuria (principal); N28.1 Cyst of kidney, acquired
CPT/HCPCS: 76775

== ENCOUNTER → 2024-10-09 09:42 | Outpatient (BNV) | payer MEDICAID, SELFPAY | PROVIDERS: PCP Nurse Practitioner Family; Visit Provider Radiology Diagnostic Radiology | DX: N28.1 Cyst of kidney, acquired (principal) | CPT/HCPCS: 76775 ==

== ENCOUNTER 2024-10-17 10:56 | Outpatient (AMB) | payer MEDICAID, SELFPAY ==
--- OUTSIDE RECORDS SUMMARY | 2024-10-15 10:03 | XMS_ITS | Encounter Summary ---
Author Organization [facility] Address [address] [place] [address] Care Team Providers Care Deputy Chief Counsel Name Role Phone Vidhya Padilla NP Primary Care Provider [phone] Reason for Visit * Rehabilitation (Routine) - Authorized Specialty Diagnoses / Procedures Referred By Contact Referred To Contact Physical Medicine and Rehabilitation / Orthopaedic Surgery Diagnoses Bilateral occipital neuralgia Procedures [place] INJECT PELON MENDOZAIPTL Patsy Le MD [address] [place] [address] Phone: tel: fax: Patsy Le MD [address] [place] [address] Phone: tel: fax: Referral ID Status Reason Start Date Expiration Date Visits Requested Visits Authorized [id number] Authorized Specialty Services Required 09/30/2024 04/01/2026 6 6 Encounter Details Date Type Department Care Team (Latest Contact Info) Description 10/15/2024 10:03 AM EDT - 10/15/2024 11:59 PM EDT Hospital Encounter [facility] [address] [place] [address] Patsy Le MD [address] [place] [address] Bilateral occipital neuralgia (Primary Dx) Discharge Disposition: Home or Self Care () Social History Tobacco Use Types Packs/Day Years [...] AM EDT documented as of this encounter Last Filed Vital Signs Vital Sign Reading Time Taken Comments Blood Pressure - - Pulse - - Temperature 36.2 C (97.2 F) 10/15/2024 10:18 AM EDT Respiratory Rate - - Oxygen Saturation - - Inhaled Oxygen Concentration - - Weight - - Height - - Body Mass Index - - documented in this encounter Discharge Instructions * Patient Instructions* Lakshmi Art LPN - 10/15/2024 10:03 AM EDT Today's procedure is Occipital Nerve Block Rest today and avoid activities that might make your muscle pain worse Pain can get worse before it gets better, injection site may be tender and sore Take what you normally take for pain You may shower tomorrow Ice to the injection site for the next 24-48 hours to help with pain, make sure you use a barrier between your skin and the ice. Avoid heat for 48 hours. Steroids can elevate Blood Sugar levels. Steroids take 2-14 days or a bit longer to take full effect. You may experience hot flashes or facial flushing. This is not an allergic reaction. It may be helpful to begin range of motion and muscle stretching exercises tomorrow Call your doctor with any signs and symptoms of infection: Fever (temp above 101 F), Chills, Redness at the site, Swelling, or Drainage Dr. Le During Business Hours 8am-4pm Scheduling concerns - [phone] Clinical concerns - [phone] After normal business hours - If you feel that you need to be evaluated for clinical symptoms, go to nearest Urgent Care or Emergency Room. documented in this encounter Medications at Time of Discharge ARIPiprazole (ABILIFY) 5 mg tablet Take 5 mg by mouth daily. 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 Refills: 0 Active lisinopril (PRINIVIL,ZESTR IL) 20 mg tablet Take 20 mg by mouth daily. 5 8 magnesium gluconate (MAGONATE) 27 mg magnesium (500 mg) tablet Take 1 tablet (27 mg of elemental magnesium total) by mouth once a day. Take 1 tablet daily 30 tablet 5 metoprolol tartrate (LOPRESSOR) 25 mg tablet Take 25 mg by mouth 2 times a day. 5 8 nortriptyline (PAMELOR) 50 mg capsule TAKE 2 CAPSULES BY MOUTH ONCE A DAY 3 8 onabotulinumtox in A (BOTOX) 100 unit recon soln injection every 3 months. ondansetron (ZOFRAN) 4 mg tablet 0 riboflavin (VITAMIN B2) 100 mg tablet Take 4 tablets once a day 120 tablet 11 5 senna 8.6 mg tablet 0 SUMAtriptan (IMITREX) 100 mg tablet TAKE 1 AT ONSET OF MIGRAINE, MAY REPEAT IN 2 HOURS, MAXIMUM 2/DAY, 6/WEEK 12 tablet 11 4 documented as of this encounter Progress Notes * Patsy Le MD - 10/15/2024 11:20 AM EDTAssociated Order(s): Nerve Block Post-Procedure Diagnose(s): Bilateral occipital neuralgia Bilateral Occipital Nerve Block Nerve Block Date/Time: 10/15/2024 10:15 AM Performed by: Patsy Le MD Authorized by: Patsy Le MD Consent: Patient identity confirmed: Name and with patient Verbal consent obtained: Yes Written consent obtained: Yes Risk and benefits discussed: Yes Written informed consent was obtained from the patient. Patient states understanding of procedure being performed: Yes Patient's understanding of procedure matches consent: Yes [place] Protocol: Procedure consent matches procedure scheduled: Yes All relevant documents/tests are correctly identified, labeled, and matched to patient: Yes Relevant tests/ Imaging studies available/reviewed: Yes Correct site marked: Yes Required blood products, implants, devices and special equipment available: Yes Immediately prior to the procedure a time out was called: Yes An attending physician was present for the procedure OR the procedure was performed by an Advanced Practice Provider: Yes The patient was admitted as an outpatient to the ambulatory injection suite at [facility]. Vital signs were monitored before and after the procedure. Procedure Details: Body area: head Nerve: greater occipital Laterality: bilateral 9 mL bupivacaine PF 0.25% (2.5 mg/mL); 40 mg methylPREDNISolone acetate 40 mg/mL Patient was prepped and draped in the usual sterile fashion. Post-procedure Details: The patient was observed in the ambulatory surgery department. Instructions: post-procedure instructions were reviewed The patient discharged from clinic in stable condition. Comments: The patient was positioned in a sitting position in a chair. Her occipital region was then cleansed. We palpated the occipital protuberance and marked the entry site approximately 1cm lateral to the left and inferior to the occipital protuberance. A 25G 1.5 inch needle was entered until bony contact was met while advancing towards the mandible. Then 5 cc of the mixture containing 9 mL of 0.25% bupivacaine and 1 mL of 40 mg/mL depomedrol was injected after negative aspiration as the needle was withdrawn. The same procedure was repeated on the right without any immediate complications. The patient was discharged in stable condition. Kacy Merritt : 1965 CSN: [id number] documented in this encounter Plan of Treatment Upcoming Encounters Date Type Department Care Team (Late st Contact Info) Description 12/05/2024 10:00 AM EDT Follow-Up [facility] A [address] [place] [address] Patsy Le MD [address] [place] [address] 01/12/2025 9:00 AM EST Appointment [facility] Neurodiagnostics [address] [place], [place] [phone] Giovany Machado MD [address] [place] [address] Tong Shultz RT(R) 02/09/2025 9:00 AM EST Follow-Up [facility] Neurology [address] [place] [address] Mary Maria MD [address] [place] [address] documented as of this encounter Procedures * Due to [facility] law, this organization might not be sharing negative HIV tests. Procedure Name Priority Date/Time Associated Diagnosis Comments [place] INJECT NERV BLCK,GREAT OCCIPTL Routine 10/15/2024 10:15 AM EDT Bilateral occipital neuralgia documented in this encounter Results * Due to [facility] law, this organization might not be sharing negative HIV tests. * [place] INJECT NERV BLCK,GREAT OCCIPTL (10/15/2024 10:15 AM EDT) Narrative Patsy Le MD - 10/15/2024 10:15 AM EDT Patsy Le MD 10/15/2024 11:32 AM Bilateral Occipital Nerve Block Nerve Block Date/Time: 10/15/2024 10:15 AM Performed by: Patsy Le MD Authorized by: Patsy Le MD Consent: Patient identity confirmed: Name and with patient Verbal consent obtained: Yes Written consent obtained: Yes Risk and benefits discussed: Yes Written informed consent was obtained from the patient. Patient states understanding of procedure being performed: Yes Patient's understanding of procedure matches consent: Yes Ronceverte Protocol: Procedure consent matches procedure scheduled: Yes All relevant documents/tests are correctly identified, labeled, and matched to patient: Yes Relevant tests/ Imaging studies available/reviewed: Yes Correct site marked: Yes Required blood products, implants, devices and special equipment available: Yes Immediately prior to the procedure a time out was called: Yes An attending physician was present for the procedure OR the procedure was performed by an Advanced Practice Provider: Yes The patient was admitted as an outpatient to the ambulatory injection suite at [facility]. Vital signs were monitored before and after the procedure. Procedure Details: Body area: head Nerve: greater occipital Laterality: bilateral 9 mL bupivacaine PF 0.25% (2.5 mg/mL); 40 mg methylPREDNISolone acetate 40 mg/mL Patient was prepped and draped in the usual sterile fashion. Post-procedure Details: The patient was observed in the ambulatory surgery department. Instructions: post-procedure instructions were reviewed The patient discharged from clinic in stable condition. Comments: The patient was positioned in a sitting position in a chair. Her occipital region was then cleansed. We palpated the occipital protuberance and marked the entry site approximately 1cm lateral to the left and inferior to the occipital protuberance. A 25G 1.5 inch needle was entered until bony contact was met while advancing towards the mandible. Then 5 cc of the mixture containing 9 mL of 0.25% bupivacaine and 1 mL of 40 mg/mL depomedrol was injected after negative aspiration as the needle was withdrawn. The same procedure was repeated on the right without any immediate complications. The patient was discharged in stable condition. Patsy Le MD IN CLINIC/BEDSIDE ORDERABLES Fin al Result documented in this encounter Visit Diagnoses Diagnosis Bilateral occipital neuralgia- Primary documented in this encounter Administered Medications Inactive Administered Medications - up to 3 most recent administrations Medication Order MAR Action Action Date Dose Rate Site bupivacaine PF (MARCAINE) 0.25% (2.5 mg/mL) injection 9 mL 9 mL, injection, One-time injection, Starting on Sun10/15/24 at 1015, 1 dose, Until Sun10/15/24 at 1015Indications:Bilateral occipital neuralgia Given 10/15/2024 10:15 AM EDT 9 mL methylPREDNISolone acetate (DEPO-Medrol) injection 40 mg 40 mg, intra-articular, One-time injection, Starting on Sun10/15/24 at 1015, 1 dose, Until Sun10/15/24 at 1015Indications:Bilateral occipital neuralgia Given 10/15/2024 10:15 AM EDT 40 mg documented in this encounter Care Teams Deputy Chief Counsel Relationship Specialty Start Date End Date Vidhya Padilla NP [address] [place] [address] PCP - General Family Medicine 07/27/22 documented as of this encounter
--- NOTE | 2024-10-17 11:01 | MHC.OFFVIS ---
Vital Signs 10/17/24 11:04 Height 5 ft 4 in Weight 160 lb 14.999 oz BMI 27.6 BP 97/55 L Blood Pressure Location Lt brachial Position Sitting Intake Visit Reasons: 4 month f/u Intake Note: Kacy presents in the office as a 4 month follow up. CC: She states that nothing has changed and everything stays the terence. Instestines are inflamed, constipation and diarrhea. She states she had a CT scan and her bowels were swollen. Allergies Penicillins (PENICILLINS) Allergy (Intermediate, Verified 10/17/24 11:07) HIVES/SWELLING bupropion (From Wellbutrin) Allergy (Verified 10/17/24 11:07) hives, swelling HPI HPI 4 month f/u: Details: 59 yr old f here for f/u for pos c diff gene PCR and diarrhea RECAP: She tried the vanc for 10d but never got the rifaximin for 20d --? not covered by insurance feels it made no change she still has diarrhea she tried levsin didnt help her sx she still doesnt want to try fecal transplant she takes probiotic she felt hemorrhoids were acting up-was sent to dr romulo hurley she is taking fiber Endoscopies: colonoscopy-- 05/2022--- normal random bx, tubular adenomas removed TEST: CT A/P:12/28-- diverticulosis, (prior scan with possible descending colitis) [facility] nml mesenteric duplex-- 02/28/23--nml Labs: Hgb 11, stool pcr c diff pos several times REPT EGD/[facility] Findings: esophagitis gastritis schatzki ring Colonoscopy Findings: diverticulosis colon polyps internal hemorrhoids path--TA removed, Stool testing: still pos for c diff gene but neg toxin, neg fecal lactoferrin Repeat EGD/colo doen due to abn CT with possible sigmoid mass 11/28 Endoscopy Findings: small hiatal hernia esophagitis gastritis Colonoscopy Findings: diverticulosis non specific colitis, ?SCAD internal hemorrhoids she has tried and failed mesalamine PO and enemas, budesonide, multiple courses of ABx, lomotil bx with focal colitis, enteritis Saw ID and had zinplava, but felt no better INTERIM: she tried cholestyramine for 2 weeks and she felt it didnt help it made no difference to diarrhea or her lower left sided pain, can be constant, sometimes 10/10 she also notes more bloating for the last 1 month which is new she went to the ED and had CT with rectosigmoiditis she received augmentin and it did not help her EXAM: GENERAL: The patient is well developed and nontoxic. VITAL SIGNS:see workflow HEENT: Nonicteric sclerae, PERRLA, EOMI. Oropharynx clear. Moist mucous membranes. Conjunctivae appear well perfused. No thyroid mass. CHEST: Chest wall is nontender. HEART: Regular rate and rhythm without murmurs. LUNGS: Clear to auscultation bilaterally. ABDOMEN: Soft, positive bowel sounds, tender mid abdomen, no organomegaly.no flank tenderness SKIN: No rash, no excessive bruising, petechiae, or purpura. NEUROLOGIC: Cranial nerves II-XII intact without motor/sensory deficit. A/P: 1/ Colitis and enteritis, with c diff carrier state, tried multiple meds, intolerances, and non response --could be SCAD based on recent CT and last colo, also SIBO 2/ GERD Plan: 1/ trial of flagyl for 2 weeks with digestive probiotic like align 2/ sigmoidoscopy --if ongoing inflammation refer Dr Veliz for sigmoid colectomy [facility] Medical History Pelvic mass Kidney anomaly, congenital Bleeding hemorrhoids Chronic abdominal pain LLQ cramping Diverticular disease of colon Clostridioides difficile diarrhea Colitis Left lower quadrant pain Tubular adenoma of colon Irritable bowel syndrome with diarrhea Sigmoid diverticulitis Acute diverticulitis Diarrhea Diverticulitis Abdominal pain GERD (gastroesophageal reflux disease) Lower abdominal pain Chronic idiopathic constipation Constipation GERD (gastroesophageal reflux disease) Surgical History History of surgery History of surgery History of intestinal surgery History of partial hysterectomy (~09/2006) Hx of hemorrhoidectomy (2008) Hx of colonoscopy (11/14/23) History of esophagogastroduodenoscopy (EGD) (11/14/23) Family History Father Cancer HTN (hypertension) Mother HTN (hypertension) Hyperthyroidism Migraine headache Maternal Grandmother History of breast cancer Paternal Grandmother History of breast cancer Family/Other Colon cancer Paternal Aunt Ovarian cancer Social History Household Members: Family and None Housing: Apartment Are you a primary animal care service worker to a significant other at home: No Do you presently have visiting nurse or other home services: No Alcohol intake: never Patient Tobacco Use Status: Never used Tobacco service: No Current occupational status: disabled Current occupational exposures/hazards: No Female Reproductive History Menstrual Age of Menarche: 7 Assessment & Plan Assessment & Plan (1) Diverticular disease of colon: Comment: ? SUDD Code(s): K57.30 - Diverticulosis of large intestine without perforation or abscess without bleeding Category: Medical Plan: as above Medications: New metronidazole 500 mg PO TID 42 tabs 0RF 14 days Discontinued amoxicillin-pot clavulanate 875-125 mg Discontinued Reason: Patient no longer taking 1 tab PO BID 7 days 14 tabs 0RF cholestyramine (Cholestyramine Light) administer w/meal; avoid other meds within 1hr before or 4-6hr after dose Discontinued Reason: Doctor's Order 4 grams PO BID 60 ea 1RF Coding Level of Care Code Est Pt Level 4 (65519) Diagnoses Diverticular disease of colon K57.30
[2024-10-17 11:04] VITALS: BP 97/55; BMI 27.6
--- OUTSIDE RECORDS SUMMARY | 2024-10-17 12:39 | XMS_ITS | Encounter Summary ---
Author Organization [employer] Address [address] [place] [address] [place] [address] Care Team Providers Care Filling Hauler Name Role Phone Claribel Grissom MD Primary Care Provider Vidhya Parker MAT GAUGER Primary Care Provider [phone] NameLes MD Primary Care Provider [phone] Encounter Details Date Type Department Care Team ([facility] Contact Info) Description 01/25/2022 Telephone [facility] [address] [place] [phone] Claribel Grissom MD Social History Tobacco Use [...] Upcoming Encounters Date Type Department Care Team ([facility] Contact Info) Description 11/17/2024 10:15 AM EDT Office Visit [facility] [address] [place] [phone] [phone] Les Torres MD [address] [place] [phone] documented as of this encounter Visit Diagnoses Not on filedocumented in this encounter Care Teams Filling Hauler Relationship Specialty Start Date End Date Claribel Grissom MD PCP - General Family Medicine 12/09/18 02/06/22 Vidhya Padilla FNP [address] [place] [address] PCP - General Family Medicine 02/07/22 10/08/23 Les Torres MD [address] [place] [address] PCP - General Internal Medicine 10/09/23 documented as of this encounter
--- OUTSIDE RECORDS SUMMARY | 2024-10-17 12:39 | XMS_ITS | Clinical Summary ---
Author Organization [facility] Address [address] [place] [address] Care Team Providers Care Agricultural Researcher Name Role Phone Vidhya Padilla BUSINESS ANALYTICS MANAGER Primary Care Provider [phone] Allergies Active Allergy Reactions Criticality Noted Date [...] 4 tablets once a day 120 tablet 025 Active Emgality Syringe 120 mg/mL syringeIndic ations:Intra [...] 28 DAYS 1 mL 024 2024 Discontinued Hospital, Clinic, or Other Facility Administered Medication Ordered Dose Route Frequency Start Date End Date Status bupivacaine PF (MARCAINE) 0.25% (2.5 mg/mL) injection 9 mLIndications:Bila teral occipital neuralgia 9 mL injection One-time injection 10/15/2024 10/15/2024 Ended methylPREDNISolone acetate (DEPO-Medrol) injection 40 mgIndications:Bila teral occipital neuralgia 40 mg intraartic One-time injection 10/15/2024 10/15/2024 Ended Active Problems Problem Noted Date Diagnosed Date [...] Encounters Date Type Department Care Team Description 10/15/2024 10:03 AM EDT - 10/15/2024 11:59 PM EDT Hospital Encounter [facility] [address] [place] [address] Patsy Le MD Bilateral occipital neuralgia (Primary Dx) Discharge Disposition: Home or Self Care () 10/03/2024 Refill [facility] Neurology [address] [place] [address] Mary Maria MD 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; Dizziness; Muscle tension headache 09/30/2024 8:33 AM EDT - 09/30/2024 11:59 PM EDT Hospital Encounter [facility] Neurodiagnostics [address] [place] [address] Giovany Machado MD Georges, Patrick 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 (Primary Dx) Discharge Disposition: Home or Self Care () 09/30/2024 Orders Only [facility] Clinic [address] [place] [address] Giovany Machado MD 09/30/2024 Orders Only [facility] B [address] [place] [address] Patsy Le MD Bilateral occipital neuralgia (Primary Dx) 08/05/2024 Orders Only [facility] Clinic [address] [place] [address] Giovany Machado MD 07/25/2024 10:15 AM EDT Office Visit [facility] A [address] [place] [address] Patsy Le MD Bilateral occipital neuralgia (Primary [...] Pulse 76 07/03/2024 9:00 AM EDT Temperature 36.2 C (97.2 F) 10/15/2024 10:18 AM EDT Respiratory Rate 18 09/01/2022 9:43 [...] Info) Description 12/05/2024 10:00 AM EDT Follow-Up [facility] A [address] [place] [address] Patsy Le MD [address] [place] [address] 01/12/2025 9:00 AM EST Appointment [facility] Neurodiagnostics [address] [place] [address] Giovany Machado MD [address] [place] [address] Tong Shultz RT(R) 02/09/2025 9:00 AM EST Follow-Up [facility] Neurology [address] [place] [address] Mary Maria MD [address] [place] [phone] Health Maintenance Due Date Last Done Comments [...] 12/29/2020, Additional history exists Basic Metabolic Panel 10/02/2025 10/02/2024 , 11/07/2023, 03/14/2023 Diabetes Screening 10/03/2027 10/02/2024, 1 , 03/14/2023, Additional history exists DTaP,Tdap,and Td Vaccines (3 - Td or Tdap) 07/20/2031 07/19/2021, 09/01/2010 RSV Vaccine (60+ years old and patients) (1 - 1-dose 75+ series) 05/20/2039 Zoster Vaccines Completed 10/18/2021, 07/19/2021 Hepatitis B Vaccines Aged Out No long er eligible based on patient's age to complete this topic Procedures * Due to [place] [facility] law, this organization might not be sharing negative HIV tests. Procedure Name Priority Date/Time Associated Diagnosis Comments [place] INJECT NERV BLCK,GREAT OCCIPTL Routine 10/15/2024 10:15 AM EDT Bilateral occipital neuralgia GLUCOSE, RANDOM Routine 07/18/2018 11:28 AM EDT Optic nerve swelling Migraine aura, persistent, intractable from Last 3 Months or Most Recently Relevant to Health Maintenance Results * Due to [place] [employer] [facility] law, this organization might not be sharing negative HIV tests. * [place] INJECT NERV BLCK,GREAT OCCIPTL (10/15/2024 10:15 AM EDT) Patsy Tate MD - 10/15/2024 10:15 AM EDT Patsy [...] Patient's understanding of procedure matches consent: Yes [place] Protocol: Procedure consent matches procedure scheduled: Yes [...] outpatient to the ambulatory injection suite at [facility]. Vital signs were monitored before and after [...] The patient was discharged in stable condition. us Patsy Le MD IN CLINIC/BEDSIDE ORDERABLES Fin al Result * Glucose, Random (07/18/2018 11:28 AM EDT) Glucose 89 70 - 99 mg/dL 07/18/2018 12:01 PM EDT [facility] Blood specimen (specimen) Structure of peripheral vein / Unknown Venipuncture / Unknown 07/18/2018 11:28 AM EDT 07/18/2018 11:35 AM EDT Mary Maria MD LAB BLOOD ORDERABLES Final Resul t [facility] [address] [place] [phone], from Last 3 Months or Most Recently Relevant to Health Maintenance Insurance [employer] Care Teams Agricultural Researcher Relationship Specialty Start Date End Date Vidhya Padilla NP [address] [place] [address] PCP - General Family Medicine 07/27/22
--- OUTSIDE RECORDS SUMMARY | 2024-10-17 12:39 | XMS_ITS | Encounter Summary ---
Author Organization [facility] Address [address] [place] [address] Care Team Providers Care Asphalt Engineer Name Role Phone Melyssa Alonso MD Primary Care Provider Encounter Details Date Type Department Care Team (Late st Contact Info) Description 01/10/2021 Orders Only [facility] [address] [place] [phone] Rehan Gerard, RN [address] [place] [phone] Medications Social History Tobacco Use Types Packs/Day [...] on filedocumented in this encounter Care Teams Asphalt Engineer Relationship Specialty Start Date End Date Melyssa Alonso MD [facility] [address] [place] [address] PCP - General Internal Medicine 07/15/20 documented as of this encounter
--- OUTSIDE RECORDS SUMMARY | 2024-10-17 12:39 | XMS_ITS | Encounter Summary ---
Author Organization [employer] Address [address] [place] [address] [address] [place] [address] Care Team Providers Care Director Of Graduate Admissions Name Role Phone Vidhya Padilla Primary Care Provider [phone] Les Torres MD Primary Care Provider [phone] Encounter Details Date Type Department Care Team (Late Contact Info) Description 07/20/2022 Abstract [facility] [address] [place] [phone] Vidhya Padilla FNP [address] [place] [phone] Social History Tobacco Use Types Packs/Day Years [...] 10:15 AM EDT Office Visit [facility] [address] [place] [phone] NameLes MD [address] [place] [phone] documented as of this encounter Procedures Procedure Name Priority Date/Time Associated Diagnosis Comments COLONOSCOPY Routine 05/10/2022 8:39 AM EDT documented in this encounter Results * Colonoscopy (05/10/2022 8:39 AM EDT) Colonoscopy Normal Normal Narrative Shanice Perez - 05/10/2022 8:39 AM EDT [place] 3 [place] [place] Historical Provider [facility] Edited Result - Final documented in this encounter Visit Diagnoses Not on filedocumented in this encounter Additional Health Concerns Assessment Noted Time PHQ-9 Depression Total Score: 18 023 9:14 AM EDT documented as of this encounter Care Teams Director Of Graduate Admissions Relationship Specialty Start Date End Date Vidhya Padilla FNP [address] [place] [address] PCP - General Family Medicine 02/07/22 10/08/23 Name, MD Les [address] [place] [address] PCP - General Internal Medicine 10/09/23 documented as of this encounter
--- OUTSIDE RECORDS SUMMARY | 2024-10-17 12:39 | XMS_ITS | Encounter Summary ---
Author Organization [facility] Address [address] [place] [address] Care Team Providers Care Outreach Assistant Name Role Phone Vidhya Padilla MARKETING OPERATIONS SPECIALIST Primary Care Provider [phone] Reason for Visit * Reason Onset Date Comments PAC Appt Request - New 07/27/2022 Encounter Details Date Type Department Care Team ([facility] Contact Info) Description 07/27/2022 Telephone [facility] [address] [place] [phone] Telephone Intake, Staff PAC Appt Request - [...] available is February, please call patient with nip wrapper to schedule appt. documented in this encounter Plan of Treatment Upcoming Encounters Date Type Department Care Team (Late st Contact Info) Description 12/05/2024 10:00 AM EDT Follow-Up [facility] A [address] [place] [address] Patsy Le MD [address] [place] [phone] 01/12/2025 9:00 AM EST Appointment [facility] [address] [place] [address] Giovany Machado MD [address] [place] [phone] Tong Shultz RT(R) 02/09/2025 9:00 AM EST Follow-Up [facility] Neurology [address] [place] [address] Mary Maria MD [address] [place] [phone] documented as of this encounter Visit Diagnoses Not on filedocumented in this encounter Additional Health Concerns Infection Onset Date Last Indicated Resolved Time R/O C.diff 08/25/2022 08/25/2022 08/25/2022 3:19 PM EDT R/O C.diff 09/06/2022 09/06/2022 09/06/2022 12:3 1 PM EDT R/O C.diff 10/03/2022 10/03/2022 10/04/2022 4:31 AM EDT documented as of this encounter Care Teams Outreach Assistant Relationship Specialty Start Date End Date Vidhya Padilla NP [address] [place] [address] PCP - General Family Medicine 07/27/22 documented as of this encounter
--- OUTSIDE RECORDS SUMMARY | 2024-10-17 12:39 | XMS_ITS | Encounter Summary ---
Author Organization [facility] Address [address] [place] [address] Care Team Providers Care Cutter Down Name Role Phone Vidhya Padilla AUTO BUMPER STRAIGHTENER Primary Care Provider [phone] Encounter Details Date Type Department Care Team (Late Contact Info) Description 11/08/2020 Orders Only [facility] [address] [place] [address] Santy Madison MD [address] [place], [place] [phone] Social History Tobacco Use Types Packs/Day Years [...] Department Care Team (Late Contact Info) Description 12/05/2024 10:00 AM EDT Follow-Up [facility] A [address] [place] [address] Patsy Le MD [address] [place] [address] 01/12/2025 9:00 AM EST Appointment [facility] [address] [place] [address] Giovany Machado MD [address] [place] [address] Tong Shultz RT(R) 02/09/2025 9:00 AM EST Follow-Up [facility] Neurology [address] [place] [address] Mary Maria MD [address] [place] [address] documented as of this encounter Visit Diagnoses Not on filedocumented in this encounter Additional Health Concerns Infection Onset Date Last Indicated Resolved Time R/O C.diff 08/25/2022 08/25/2022 08/25/2022 3:19 PM EDT R/O C.diff 09/06/2022 09/06/2022 09/06/2022 12:3 1 PM EDT R/O C.diff 10/03/2022 10/03/2022 10/04/2022 4:31 AM EDT documented as of this encounter Care Teams Cutter Down Relationship Specialty Start Date End Date Vidhya Padilla NP [address] [place] [phone] PCP - General Family Medicine 07/27/22 documented as of this encounter
--- OUTSIDE RECORDS SUMMARY | 2024-10-17 12:39 | XMS_ITS | Encounter Summary ---
Author Organization [employer] Address [address] [place] [address] 7 [place] [address] Care Team Providers Care Extruding Department Supervisor Name Role Phone Vidhya Padilla Primary Care Provider [phone] NameLes MD Primary Care Provider [phone] Encounter Details Date Type Department Care Team ([facility] Contact Info) Description 03/21/2022 Orders Only [facility] [address] [place] [address] Vidhya Padilla FNP [address] [place] [address] Sigmoid diverticulitis (Primary Dx) Social History Tobacco [...] ([facility] Contact Info) Description 11/17/2024 10:15 AM EDT Office Visit [facility] [address] [place] [address] Name, MD Les [address] [place] [address] documented as of this encounter Visit Diagnoses Diagnosis Sigmoid diverticulitis- Primary Diverticulitis of colon (without mention of hemorrhage) documented in this encounter Care Teams Extruding Department Supervisor Relationship Specialty Start Date End Date Vidhya Padilla FNP [address] [place] [address] PCP - General Family Medicine 02/07/22 10/08/23 Name, MD Les [address] [place] [address] PCP - General Internal Medicine 10/09/23 documented as of this encounter
--- OUTSIDE RECORDS SUMMARY | 2024-10-17 12:39 | XMS_ITS | Clinical Summary ---
Author Organization [employer] Address [address] [place] [address] 7 [place] [address] Care Team Providers Care Replenisher Name Role Phone Name, Les GARCIA Primary Care Provider [phone] Allergies Active Allergy Reactions Criticality Noted Date [...] DEPARTMENT Provider, Generic External Data 09/08/2024 Refill [facility] [address] [place], [place] [phone] Name, MD Les Primary hypertension 09/05/2024 Telephone [facility] [address] [place], [place] [phone] Miladys Falk [place] jason recall 08/22/2024 1:30 PM EDT Office Visit [facility] [address] [place] [address] Brock, Lakshmi, OD Nuclear senile cataract of [...] Description 11/17/2024 10:15 AM EDT Office Visit [facility] [address] [place] [address] Name, MD Les [address] [place] [address] Health Maintenance Due Date Last Done Comments [...] Procedure Name Priority Date/Time Associated Diagnosis Comments US RENAL COMPLETE Routine 10/09/2024 9:5 2 AM EDT URINALYSIS, COMPLETE, WITH REFLEX TO CULTURE Routine [...] AM EDT CULTURE, URINE, ROUTINE Routine 10/03/19 25 8:16 AM EDT BACTERIAL VAGINOSIS PANEL Routine 10/02/2024 8:16 AM EDT BI MAMMOGRAM SCREENING TOMOSYNTHESIS BILATERAL Routine 03/10/2024 12:48 PM EST HEPATITIS PANEL, GENERAL Routine 024 10:20 AM EST HM COLONOSCOPY Routine 05/10/2022 8:39 AM EDT LIPID PANEL, STANDARD Routine 08/05/2021 9:50 AM EDT from Last 3 Months or Most Recently Relevant to Health Maintenance Results * US Renal Complete (10/09/2024 9:52 AM EDT) Anatomical Region Laterality Modality Kidney Ultrasound 10/09/2024 9:52 AM EDT Narrative 10/09/2024 11:00 AM EDT [place] [address] Ultrasound Report Signed Patient: Kacy Merritt MR#: [id number] 9 : 1965 Acct:[id number] Age/Sex: 59 / F ADM Date: 10/09/24 Loc: .US Attending Dr: Maryanne RAPP Ordering Physician: Maryanne Wells Date of Service: 10/09/24 Procedure(s): US renal BI Accession Number(s): [id number] cc: Vidhya Padilla BEFORE AND AFTER SCHOOL DAYCARE WORKER; Maryanne Wells Reason for Exam: R31.29 - Other microscopic hematuria EXAMINATION: US RETROPERITONEAL LIMITED (RENAL ONLY) CLINICAL INFORMATION: Microscopic hematuria. Cyst of kidney.. COMPARISON: September 11, 2023. Correlated to CT dated September 24, 2024. TECHNIQUE: Real-time ultrasound kidneys using grayscale technique. FINDINGS: RIGHT KIDNEY: 10 x 5 x 5 cm (SAG x AP x TRV). Volume: 132 cc. Normal echotexture. Normal renal cortical thickness. No hydronephrosis. There is a 0.9 cm exophytic anechoic lesion without septations or nodular components or flow on color Doppler interrogation centered in the midportion. LEFT KIDNEY: 10 x 5 x 5 cm (SAG x AP x TRV). Volume: 121 cc. Normal echotexture. Normal renal cortical thickness. No hydronephrosis. There is a 1.5 cm well-defined ovoid shaped anechoic lesion at the corticomedullary junction of the midportion without septations or nodular component or flow on color Doppler interrogation. US/US renal BI IMPRESSION: No hydronephrosis. Bilateral renal simple cysts.. Electronically signed by: Jose Vaca MD 10/09/2024 10:57 AM EDT RP Dictated By: Jose Lizarraga MD Signed By: <Electronically signed by Jose Villafuerte MD in OV> 10/09/24 1057 DD/ 0952 TD/TT: 10/09/24 0959 Bridge Maintenance Worker: Procedure Note Donotuseinterpreter, Image - 10/09/2024 [place] [address] Ultrasound Report Signed Patient: Meghan Merritt#: [id number] 9 : 1965Acct:[id number] Age/Sex: 59 / FADM Date: 10/09/24 Loc: HO.US Attending Dr: Maryanne RAPP Ordering Physician: Maryanne Wells Date of Service: 10/09/24 Procedure(s): US renal BI Accession Number(s): [id number] cc: Vidhya Padilla BEFORE AND AFTER SCHOOL DAYCARE WORKER; Maryanne Wells Reason for Exam: R31.29 - Other microscopic hematuria EXAMINATION: US RETROPERITONEAL LIMITED (RENAL ONLY) CLINICAL INFORMATION: Microscopic hematuria. Cyst of kidney.. COMPARISON: September 11, 2023. Correlated to CT dated September 24, 2024. TECHNIQUE: Real-time ultrasound kidneys using grayscale technique. FINDINGS: RIGHT KIDNEY: 10 x 5 x 5 cm (SAG x AP x TRV). Volume: 132 cc. Normal echotexture. Normal renal cortical thickness. No hydronephrosis. There is a 0.9 cm exophytic anechoic lesion without septations or nodular components or flow on color Doppler interrogation centered in the midportion. LEFT KIDNEY: 10 x 5 x 5 cm (SAG x AP x TRV). Volume: 121 cc. Normal echotexture. Normal renal cortical thickness. No hydronephrosis. There is a 1.5 cm well-defined ovoid shaped anechoic lesion at the corticomedullary junction of the midportion without septations or nodular component or flow on color Doppler interrogation. US/US renal BI IMPRESSION: No hydronephrosis. Bilateral renal simple cysts.. Electronically signed by: Jose Vaca MD 10/09/2024 10:57 AM EDT RP Dictated By: Jose Lizarraga MD Signed By: <Electronically signed by Jose Villafuerte MDin OV> 10/09/24 1057 DD/ 0952 TD/TT: 10/09/24 0959 Bridge Maintenance Worker: us [facility] External Provider IMG US PROCEDURES Final Result * (ABNORMAL) Urinalysis, Complete, with Reflex to Culture (10/02/2024 3:25 PM EDT) Color Urine Yellow [facility] Appearance Urine Clear [facility] PH 5.0 5.0 - 9.0 [facility] Glucose Urine UA Negative Negative mg/dL [facility] Urine Blood Trace(A) Negative [facility] Specific [place] - Urine 1.025 1.005 - 1.025 [facility] Urine Protein Trace Neg-Trace mg/dL [facility] Urine Ketones Trace Negative mg/dL [facility] Nitrite Urine Negative Negative [facility] Leukocyte Esterase Urine Negative Negative [facility] RBC Urine 0-2 0 - 2 /HPF [facility] Urine WBC 0-5 0 - 5 /HPF [facility] Urine Squamous Epithelial Cell 3-5 0 - 2 /HPF [facility] Urine Bacteria 1+ None Seen [facility] Hyaline Casts, Urine 3-5 0 - 2 /LPF [facility] 10/02/2024 3:25 PM EDT 10/02/2024 3:28 PM EDT Narrative [facility] - 10/02/2024 3:46 PM EDT Urine, Clean Catch us Generic External Data Provider LAB URINE ORDERAB LES Final Result Performing Organization Address City/State/[facility] Co de Phone Number [facility] [address] [place] [phone] * CT Abdomen Pelvis w/ Contrast (10/02/2024 1:40 PM EDT) Anatomical Region Laterality Modality Body, Pelvis, Abdomen Computed T omography 10/02/2024 1:40 PM EDT Narrative 10/02/2024 3:19 PM EDT [address] [address] [address] Scan Report Signed Patient: Kacy Merritt MR#: [id number] 9 : 1965 Acct:[id number] Age/Sex: 59 / F ADM Date: 10/02/24 Loc: .ED Attending Dr: Ordering Physician: Nell Reyes DO Date of Service: 10/02/24 Procedure(s): CT abdomen pelvis w IV con Accession Number(s): [id number] cc: Vidhya Padilla BEFORE AND AFTER SCHOOL DAYCARE WORKER; Nell Reyes DO Report Number: [id number]: Total DLP = 624.00 mGy-cm EXAMINATION: CT [...] 10/02/24 1516 DD/ 1340 TD/TT: 10/02/24 1505 Bridge Maintenance Worker: Procedure Note Donotuseinterpreter, Image - 10/02/[address] [address] [address] Scan Report Signed Patient: Meghan Merritt#: [id number] 9 : 1965Acct:[id number] Age/Sex: 59 / FADM Date: 10/02/24 Loc: HO.ED Attending Dr: Ordering Physician: Nell Reyes DO Date of Service: 10/02/24 Procedure(s): CT abdomen pelvis w IV con Accession Number(s): [id number] cc: Vidhya Padilla BEFORE AND AFTER SCHOOL DAYCARE WORKER; Nell Reyes DO Report Number: [id number]: Total DLP = 624.00 mGy-cm EXAMINATION: CT [...] 10/02/24 1516 DD/ 1340 TD/TT: 10/02/24 1505 Bridge Maintenance Worker: [facility] External Provider IMG CT PROCEDURES Final Result * CDiff Gene PCR (10/02/2024 12:24 PM EDT) CDiff Gene PCR NEGATIVE Negative [facility] Comment:If C. difficile stro ngly suspected despite one negativetest, a second test may be sent vs. empiric treatment forC. difficile infection. 10/02/2024 12:2 4 PM EDT 10/02/2024 12:27 PM EDT us Generic External Data Provider LAB BODY FLUIDS A ND STOOLS ORDERABLES Final Result [facility] [address] [place] [phone] [phone] * Gastrointestinal panel (10/02/2024 12:24 PM EDT) Campylobacter Not Detected Not Detect. [facility] Plesiomonas shigelloides Not Detected Not Detect. [facility] Salmonella Not Detected Not Detect. [facility] Vibrio Not Detected Not Detect. [facility] Vibrio cholerae Not Detected Not Detect. [facility] YERSINIA ENTEROCOLITICA Not Detected Not Detect. [facility] Enteroaggregative E. coli (EAEC) Not Detected Not Detect. [facility] Enteropathogenic E. coli (EPEC) Not Detected Not Detect. [facility] Enterotoxigenic E. coli (ETEC) lt/st Not Detected Not Detect. [facility] Shiga-like toxin-producing E. coli (STEC) stx1/stx2 Not Detected Not Detect. [facility] E coli O157 Not applicable Not Detect. [facility] Comment:E. coli containing t he O157 antigen are a subset ofShiga-like toxin- producing E. coli (STEC). Shigella/Enteroinvasive E. coli (EIEC) Not Detected Not Detect. [facility] Cryptosporidium Not Detected Not Detect. [facility] Cyclospora cayetanensis Not Detected Not Detect. [facility] Entamoeba histolytica Not Detected Not Detect. [facility] Giardia lamblia Not Detected Not Detect. [facility] Adenovirus F 40/41 Not Detected Not Detect. [facility] Astrovirus Not Detected Not Detect. [facility] Norovirus GI/GII Not Detected Not Detect. [facility] Rotavirus A Not Detected Not Detect. [facility] Sapovirus Not Detected Not Detect. [facility] Comment: All results must be correlated [...] assay is performed by Multiplexed PCR, utilizing [employer] [place] [employer]. 10/02/2024 12:2 4 PM EDT 10/02/2024 12:27 PM EDT us Generic External Data Provider LAB MICROBIOLOGY - GENERAL ORDERABLES Final Result [facility] [address] [place] [phone] * (ABNORMAL) CBC auto differential (10/02/2024 10:03 AM EDT) White Blood Count 6.7 4.8 - 10.8 X10*3/uL [facility] Red Blood Count 4.52 4.20 - 5.50 X10*6/uL [facility] Hemoglobin 12.1 12.0 - 16.0 g/dl [facility] Hematocrit 38.2 37.0 - 47.0 % [facility] Mean Corpuscular Volume 84.5 80.0 - 98.0 fL [facility] Mean Corpuscular Hemoglobin 26.8(L) 27.0 - 33.0 pg [facility] Mean Corpuscular HGB Conc 31.7 31.0 - 35.0 g/dl [facility] Red Cell Distribution Width 13.7 11.0 - 16.0 % [facility] Platelet Count 324 160 - 400 X10*3/uL [facility] Mean Platelet Volume 9.3(L) 9.4 - 12.3 fL [facility] Neutrophils Percent Auto 47.6 45 - 73 % [facility] Imm Gran Pct Auto 0.1 0.0 - 0.4 % [facility] Lymphocytes Percent Auto 42.4(H) 20 - 40 % [facility] Monocytes Percent Auto 8.0 2 - 11 % [facility] Eosinophils Percent Auto 1.3 0 - 4 % [facility] Basophils Percent Auto 0.6 0 - 2 % [facility] NRBC Pct Auto 0.0 0.0 - 0.2 /100WBC [facility] Neutrophils Absolute Auto 3.2 2.0 - 8.3 x10*3/uL [facility] Imm Gran Abs Auto 0.01 0.00 - 0.03 X10*3/uL [facility] Lymphocytes Absolute Auto 2.9 1.2 - 4.9 X10*3/uL [facility] Monocytes Absolute Auto 0.5 0.1 - 1.2 X10*3/uL [facility] Eosinophils Absolute Auto 0.1 0.0 - 0.4 X10*3/uL [facility] Basophils Absolute Auto 0.0 0.0 - 0.2 X10*3/uL [facility] NRBC Abs Auto 0.000 0.0 - 0.012 X10*3/uL [facility] 10/02/2024 10:0 3 AM EDT 10/02/2024 10:06 AM EDT us Generic External Data Provider LAB BLOOD ORDERAB LES Final Result [facility] [address] [place] [address] [phone] * Magnesium (10/02/2024 10:03 AM EDT) Magnesium 2.2 1.6 - 2.6 mg/dL [facility] 10/02/2024 10:0 3 AM EDT 10/02/2024 10:06 AM EDT us Generic External Data Provider LAB BLOOD ORDERAB LES Final Result Performing Organization Address City/[facility]/ZIP Co de Phone Number [facility] [address] [place] [phone] * Lipase (10/02/2024 10:03 AM EDT) [facility] Lipase 39 8 - 78 U/L [facility] 10/02/2024 10:0 3 AM EDT 10/02/2024 10:06 AM EDT us Generic External Data Provider LAB BLOOD ORDERAB LES Final Result Performing Organization Address [facility] Co de Phone Number [facility] [address] [place] [phone] * Hepatic Function Panel (10/02/2024 10:03 AM EDT) Pathologist [facility] Bilirubin, Total 0.3 0.0 - 1.0 mg/dL [facility] Bilirubin, Direct 0.1 0.0 - 0.5 mg/dL [facility] Aspartate Amino Transferase 22 5 - 31 U/L [facility] Alanine Aminotransferase 22 0 - 31 U/L [facility] Total Protein 7.6 6.5 - 8.0 g/dL [facility] Albumin Level 4.6 3.5 - 5.0 g/dL [facility] Alkaline Phosphatase 70 39 - 117 U/L [facility] 10/02/2024 10:0 3 AM EDT 10/02/2024 10:06 AM EDT us Generic External Data Provider LAB BLOOD ORDERAB LES Final Result Performing Organization Address City/[facility]/ZIP Co de Phone Number [facility] [address] [place] [phone] * (ABNORMAL) Basic Metabolic Panel (10/02/2024 10:03 AM EDT) Pathologist [facility] Sodium 138 135 - 145 mmol/L [facility] Potassium 4.8 3.3 - 5.1 mmol/L [facility] Chloride 105 96 - 108 mmol/L [facility] Carbon Dioxide 28 22 - 29 mmol/L [facility] Anion Gap 10(L) 12 - 20 [facility] Urea Nitrogen (BUN) 18(H) 9 - 16 mg/dL [facility] Creatinine, Serum 0.85 0.5 - 1.4 mg/dL [facility] Creatinine Clr Calc Pharmacy 69.5 [facility] Comment:Provided height and weight: 162.56 cm,74.5 kg.eGFR (calculated from the MDRD study equation) and eCrCl(calculated from the Cockcroft-Gault equation) are based ondifferent parameters and may not yield comparable results.If eCrCl result is absurd, please check patient'sheight/weight. Estimated Glomerular Filt Rate >60 [facility] Comment:Chronic Kidney Disea se: Estimated GFR < 60 mL/min/1.75s5Lbquvh Kidney Disease: Estimated GFR < 15 mL/min/1.73m2 Glucose 99 60 - 115 mg/dL [facility] Calcium 9.4 8.4 - 10.2 mg/dL [facility] 10/02/2024 10:0 3 AM EDT 10/02/2024 10:06 AM EDT us Generic External Data Provider LAB BLOOD ORDERAB LES Final Result [facility] [address] [place] [phone] * Bacterial Vaginosis (10/02/2024 8:16 AM EDT) Pathologist [facility] TRICHOMONAS VAGINALIS DETECTION BY PCR NOT DETECTED Not Detect [facility] BACTERIAL VAGINOSIS DETECTION BY PCR NEGATIVE Negative [facility] Comment:The BV organism targ ets of [...] DETECTION BY PCR NOT DETECTED Not Detect [facility] Heather glab krusei PCR NOT DETECTED Not Detect [facility] 10/02/2024 8:16 AM EDT 10/02/2024 2:10 PM EDT Generic External Data Provider LAB MICROBIOLOGY - GENERAL ORDERABLES Final Result Performing Organization Address City/[facility]/ZIP Co de Phone Number [facility] [address] [place] [phone] * Culture, Urine, Routine (10/02/2024 8:16 AM EDT) Urine Urine specimen obtained by clean catch procedure / Unknown 10/02/2024 8:16 AM EDT 10/02/2024 2:10 PM EDT Comment:UACC Narrative [facility] - 10/03/2024 9:10 AM EDT Urine Culture No growth. Specimen Source: Urine clean catch Generic External Data Provider LAB MICROBIOLOGY - GENERAL ORDERABLES Final Result Performing Organization Address City/[facility]/ZIP Co de Phone Number [facility] [address] [place] [phone] * BI Mammogram Screening Tomosynthesis Bilateral (03/10/2024 12:48 PM EST) Anatomical Region Laterality Modality Breast Bilateral Mammography 03/10/2024 12:4 8 PM EST Narrative 03/16/2024 5:47 PM EST [address] [place] [address] Mammography Report Signed Patient: Kacy Merritt MR#: [id number] 9 : 1965 Acct:[id number] Age/Sex: 58 / F ADM Date: 03/10/24 Loc: HO.MAMMO Attending Dr: Vidhya Padilla NP Ordering Physician: Vidhya Padilla NP Results: 1Negativ e Date of Service: 03/10/24 Follow Up: 1 Year From Orig inal Mammogram Procedure(s): MM tomosynthesis screening BI Accession Number(s): [id number] cc: Vidhya Padilla NP EXAMINATION: MM SCREENING [...] by: Daiana Segal DO 03/16/2024 05:44 PM [facility] Dictated By: Daiana Segal DO Signed By: <Electronically signed by Daiana Segal DO in OV> 03/16/24 1744 DD/ 1248 TD/TT: 03/10/24 1308 Bridge Maintenance Worker: Procedure Note Donotuseinterpreter, Image - 03/16/[address] [place] [address] Mammography Report Signed Patient: Lashon MerrittR#: [id number] 9 : 1965Acct:[id number] Age/Sex: 58 / FADM Date: 03/10/24 Loc: HO.MAMMO Attending Dr: Vidhya Padilla BEFORE AND AFTER SCHOOL DAYCARE WORKER Ordering Physician: Vidhya Padilla NPResults: 1Negativ e Date of Service: 03/10/24Follow Up: 1 Year From Orig ina Mammogram Procedure(s): MM tomosynthesis screening BI Accession Number(s): [id number] cc: Vidhya Padilla BEFORE AND AFTER SCHOOL DAYCARE WORKER EXAMINATION: MM SCREENING DIGITAL BREAST TOMOSYNTHESIS, BILATERAL [...] 03/16/24 1744 DD/ 1248 TD/TT: 03/10/24 1308 Bridge Maintenance Worker: Vidhya Padilla BENEFIT DIRECTOR IMG BI PROCEDURES Edited Result - Final * Hepatitis Panel, General (03/14/2023 10:20 AM EST) Hepatitis A IgM Nonreactive Nonreactive [facility] Comment:IgM antibodies to QUEZADA V not detected; does not exclude earlyacute or recovered HAV infection. ~Hepatitis B Surface Antibody NONREACTIVE Nonreactive [facility] Comment:Nonreactive: < 8.00 mIU/mL Hepatitis B Core Antibody Nonreactive Nonreactive [facility] Hepatitis C Antibody Nonreactive Nonreactive [facility] Comment:Antibodies to HCV no t detected; does not exclude early acuteHCV infection. Hepatitis B Surface Ag Negative Negative [facility] 03/14/2023 10:2 0 AM EST 03/14/2023 10:26 AM EST us Generic External Data Provider LAB BLOOD ORDERAB LES Final Result [facility] [address] [place] [phone] * Colonoscopy (05/10/2022 8:39 AM EDT) Colonoscopy Normal Normal Narrative Shanice Perez - 05/10/2022 8:39 AM EDT Recommended 3 year follow up ([facility]) Historical Provider HEALTH MAINTENANCE Edited Result - [...] factors. LDL-C is now calculated using the Eliceo-Reva calculation, which is a validated novel method providing better accuracy than the Friedewald equation in the estimation of LDL-C. Eliceo SS et al. ROLDAN. 2013;310(19): 5894-4268 (http://education.Resonergy.HigherNext/faq/OLA761) Non-HDL Cholesterol 181(H) <130 mg/dL (calc) [facility] Comment: For patients with diabetes plus 1 major ASCVD risk factor, treating to a non-HDL-C goal of <100 mg/dL (LDL-C of <70 mg/dL) is considered a therapeutic option. Triglycerides 126 <150 mg/dL [facility] 08/05/2021 9:50 AM EDT us Claribel Grissom MD LAB BLOOD ORDERABLES Final R esult [facility] [address] from Last 3 Months or Most Recently Relevant to Health Maintenance Insurance [employer] Care Teams Replenisher Relationship Specialty Start Date End Date Name, MD Les [address] [place], [place] PCP - General Internal Medicine 10/09/23
--- OUTSIDE RECORDS SUMMARY | 2024-10-17 12:39 | XMS_ITS | Encounter Summary ---
Author Organization [employer] Address [address] [place] [address] [address] [place] [address] Care Team Providers Care Wind Science And Planning Name Role Phone Vidhya Padilla Primary Care Provider [phone] NameLes MD Primary Care Provider [phone] Reason for Visit * Reason Comments Med Change Request Encounter Details Date Type Department Care Team ([facility] st Contact Info) Description 08/02/2022 Refill [facility] [address] [place] [address] Vidyha Padilla FNP [address] [place] [address] Social History Tobacco Use Types Packs/Day Years [...] Description 11/17/2024 10:15 AM EDT Office Visit [facility] [address] [place] [address] NameLes MD [address] [place] [phone] documented as of this encounter Visit Diagnoses Not on filedocumented in this encounter Additional Health Concerns Assessment Noted Time PHQ-9 Depression Total Score: 18 023 9:14 AM EDT documented as of this encounter Care Teams Wind Science And Planning Relationship Specialty Start Date End Date Vidhya Padilla FNP [address] [place] [phone] PCP - General Family Medicine 02/07/22 10/08/23 Name, MD Les [address] [place] [address] PCP - General Internal Medicine 10/09/23 documented as of this encounter
--- OUTSIDE RECORDS SUMMARY | 2024-10-17 12:39 | XMS_ITS | Encounter Summary ---
Author Organization [employer] Address [address] [place] [address] [address] [place] [address] Care Team Providers Care Court Reporter Name Role Phone Vidhya Padilla Primary Care Provider Name, Les GARCIA Primary Care Provider [phone] Reason for Visit * Reason Onset Date Comments Referral 03/01/2022 Encounter Details Date Type Department Care Team ([facility] st Contact Info) Description 03/01/2022 Telephone [facility] [address] [place] [address] Vidhya Padilla FNP [address] [place], [place] [phone] Referral Social History Tobacco Use Types Packs/Day [...] 03/01/2022 2:52 PM EST Telephone call to [facility] urology in regards to pt's referral. Pt needs referral for cyst in kidney andabdominal pain per [facility]. N28.1 and R10.9 respectively. * Telephone Encounter - Nolan Carlisle - 03/01/2022 9:03 AM EST Tc from pt requesting a referral to [facility]. Pt states she received a call and she was advised to request a referral do to something in her Left Kidney. Flooring Machine Feeder was attempting togather details, pt was unable to provide details. 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
--- OUTSIDE RECORDS SUMMARY | 2024-10-17 12:39 | XMS_ITS | Clinical Summary ---
Author Organization [facility] Address [address] [place] [address] Care Team Providers Care Barn Worker Name Role Phone Melyssa Alonso MD [...] Zoster (Zostavax) Discontinued Procedures * Due to [place] [employer] law, this organization might not be sharing negative HIV tests. Procedure Name Priority Date/Time Associated Diagnosis Comments COMPREHENSIVE EYE EXAM 07/15/2020 from Last 3 Months or Most Recently Relevant to Health Maintenance Results * Due to [place] [employer] law, this organization might not be sharing negative HIV tests. * COMPREHENSIVE EYE EXAM (07/15/2020) Fawad VALENCIA PROCEDURE Final Result from Last 3 Months or Most Recently Relevant to Health Maintenance Insurance MEDICAID MEDICAID Care Teams Barn Worker Relationship Specialty Start Date End Date Melyssa Alonso MD [address] [address] PCP - General Internal Medicine 07/15/20
== END 2024-10-17 11:25 | disposition home or self-care (01) ==
LOC: HO.HGI 10:57
PROVIDERS: PCP Nurse Practitioner Family; Visit Provider Internal Medicine Gastroenterology
DX: K57.30 Diverticulosis of large intestine without perforation or abscess without bleeding (principal)
CPT/HCPCS: 99214

== ENCOUNTER → 2024-10-17 10:56 | Outpatient (BNVA) | payer MEDICAID, SELFPAY | PROVIDERS: PCP Nurse Practitioner Family; Visit Provider Internal Medicine Gastroenterology | DX: K57.30 Diverticulosis of large intestine without perforation or abscess without bleeding (principal) | CPT/HCPCS: 99212 ==

== ENCOUNTER 2024-11-13 08:49 | Day surgery (SDC) | payer MEDICAID, SELFPAY ==
--- OUTSIDE RECORDS SUMMARY | 2024-10-23 11:18 | XMS_ITS | Clinical Summary ---
Author Organization [facility] Address [address] [place] [address] Care Team Providers Care Trouble Dispatcher Name Role Phone Melyssa Alonso MD Primary Care Provider [phone] Allergies Active Allergy Reactions Criticality Noted Date [...] Zoster (Zostavax) Discontinued Procedures * Due to [place] [employer] law, this organization might not be sharing negative HIV tests. Procedure Name Priority Date/Time Associated Diagnosis Comments COMPREHENSIVE EYE EXAM 07/15/2020 from Last 3 Months or Most Recently Relevant to Health Maintenance Results * Due to [place] [employer] law, this organization might not be sharing negative HIV tests. * COMPREHENSIVE EYE EXAM (07/15/2020) Fawad VALENCIA PROCEDURE Final Result from Last 3 Months or Most Recently Relevant to Health Maintenance Insurance MEDICAID MEDICAID Care Teams Trouble Dispatcher Relationship Specialty Start Date End Date Melyssa Alonso MD [address] [address] PCP - General Internal Medicine 07/15/20
--- OUTSIDE RECORDS SUMMARY | 2024-10-23 11:18 | XMS_ITS | Encounter Summary ---
Author Organization [facility] Address [address] [place] [address] Care Team Providers Care Medical Instrument Cable Fabricator Name Role Phone Melyssa Alonso MD Primary Care Provider Encounter Details Date Type Department Care Team (Late st Contact Info) Description 01/10/2021 Orders Only [facility] [address] [place] [phone] Rehan Gerard, RN [address] [place] [phone] Medications Social History Tobacco Use Types Packs/Day [...] on filedocumented in this encounter Care Teams Medical Instrument Cable Fabricator Relationship Specialty Start Date End Date Melyssa Alonso MD [facility] [address] [place] [address] PCP - General Internal Medicine 07/15/20 documented as of this encounter
--- OUTSIDE RECORDS SUMMARY | 2024-10-23 11:18 | XMS_ITS | Clinical Summary ---
Author Organization [employer] Address [address] [place] [address] 7 [place] [address] Care Team Providers Care Earth Science Teacher Name Role Phone Name, Les GARCIA Primary Care Provider [phone] Allergies Active Allergy Reactions Criticality Noted Date [...] DEPARTMENT Provider, Generic External Data 09/08/2024 Refill [facility] [address] [place], [place] [phone] Name, MD Les Primary hypertension 09/05/2024 Telephone [facility] [address] [place], [place] [phone] Miladys Falk [place] jason recall 08/22/2024 1:30 PM EDT Office Visit [facility] [address] [place] [address] Brock, Lakshmi, OD Nuclear senile cataract of [...] Description 11/17/2024 10:15 AM EDT Office Visit [facility] [address] [place] [address] Name, MD Les [address] [place] [address] Health Maintenance Due Date Last Done Comments [...] AM EDT Narrative 10/09/2024 11:00 AM EDT [place] [address] Ultrasound Report Signed Patient: Kacy Merritt MR#: [id number] 9 : 1965 Acct:[id number] Age/Sex: 59 / F ADM Date: 10/09/24 Loc: .US Attending Dr: Maryanne RAPP Ordering Physician: Maryanne Wells Date of Service: 10/09/24 Procedure(s): US renal BI Accession Number(s): [id number] cc: Vidhya Padilla PRESIDENT; Maryanne Wells Reason for Exam: R31.29 - [...] 10/09/24 1057 DD/ 0952 TD/TT: 10/09/24 0959 Heat Sealing Machine Operator: Procedure Note Donotuseinterpreter, Image - 10/09/2024 [place] [address] Ultrasound Report Signed Patient: Meghan Merritt#: [id number] 9 : 1965Acct:[id number] Age/Sex: 59 / FADM Date: 10/09/24 Loc: HO.US Attending Dr: Maryanne RAPP Ordering Physician: Maryanne Wells Date of Service: 10/09/24 Procedure(s): US renal BI Accession Number(s): [id number] cc: Vidhya Padilla PRESIDENT; aMryanne Wells Reason for Exam: R31.29 - Other [...] 10/09/24 1057 DD/ 0952 TD/TT: 10/09/24 0959 Heat Sealing Machine Operator: us [facility] External Provider IMG US PROCEDURES Final Result * (ABNORMAL) Urinalysis, Complete, with Reflex to Culture (10/02/2024 3:25 PM EDT) Color Urine Yellow [facility] Appearance Urine Clear [facility] PH 5.0 5.0 - 9.0 [facility] Glucose Urine UA Negative Negative mg/dL [facility] Urine Blood Trace(A) Negative [facility] Specific Sully - Urine 1.025 1.005 - 1.025 [facility] Urine Protein Trace Neg-Trace mg/dL [facility] Urine Ketones Trace Negative mg/dL [facility] Nitrite Urine Negative Negative [facility] Leukocyte Esterase Urine Negative Negative [facility] RBC Urine 0-2 0 - 2 /HPF [facility] Urine WBC 0-5 0 - 5 /HPF [facility] Urine Squamous Epithelial Cell 3-5 0 - 2 /HPF [facility] Urine Bacteria 1+ None Seen [facility] Hyaline Casts, Urine 3-5 0 - 2 /LPF [facility] 10/02/2024 3:25 PM EDT 10/02/2024 3:28 PM EDT Narrative [facility] - 10/02/2024 3:46 PM EDT Urine, Clean Catch us Generic External Data Provider LAB URINE ORDERAB LES Final Result Performing Organization Address City/State/[facility] Co de Phone Number [facility] [address] [place] [phone] * CT Abdomen Pelvis w/ Contrast (10/02/2024 1:40 PM EDT) Anatomical Region Laterality Modality Body, Pelvis, Abdomen Computed T omography 10/02/2024 1:40 PM EDT Narrative 10/02/2024 3:19 PM EDT [address] [address] [address] Scan Report Signed Patient: Kacy Merritt MR#: [id number] 9 : 1965 Acct:[id number] Age/Sex: 59 / F ADM Date: 10/02/24 Loc: .ED Attending Dr: Ordering Physician: Nell Reyes DO Date of Service: 10/02/24 Procedure(s): CT abdomen pelvis w IV con Accession Number(s): [id number] cc: Vidhya Padilla PRESIDENT; Nell Reyes DO Report Number: [id number]: Total DLP = 624.00 mGy-cm EXAMINATION: CT [...] 10/02/24 1516 DD/ 1340 TD/TT: 10/02/24 1505 Heat Sealing Machine Operator: Procedure Note Donotuseinterpreter, Image - 10/02/[address] [address] [address] Scan Report Signed Patient: Meghan Merritt#: [id number] 9 : 1965Acct:[id number] Age/Sex: 59 / FADM Date: 10/02/24 Loc: HO.ED Attending Dr: Ordering Physician: Nell Reyes DO Date of Service: 10/02/24 Procedure(s): CT abdomen pelvis w IV con Accession Number(s): [id number] cc: Vidhya Padilla PRESIDENT; Nell Reyes DO Report Number: [id number]: Total DLP = 624.00 mGy-cm EXAMINATION: CT [...] 10/02/24 1516 DD/ 1340 TD/TT: 10/02/24 1505 Heat Sealing Machine Operator: [facility] External Provider IMG CT PROCEDURES Final Result * CDiff Gene PCR (10/02/2024 12:24 PM EDT) CDiff Gene PCR NEGATIVE Negative [facility] Comment:If C. difficile stro ngly suspected despite one negativetest, a second test may be sent vs. empiric treatment forC. difficile infection. 10/02/2024 12:2 4 PM EDT 10/02/2024 12:27 PM EDT us Generic External Data Provider LAB BODY FLUIDS A ND STOOLS ORDERABLES Final Result [facility] [address] [place] [phone] * Gastrointestinal panel (10/02/2024 12:24 PM EDT) Campylobacter Not Detected Not Detect. [facility] Plesiomonas shigelloides Not Detected Not Detect. [facility] Salmonella Not Detected Not Detect. [facility] Vibrio Not Detected Not Detect. [facility] Vibrio cholerae Not Detected Not Detect. [facility] YERSINIA ENTEROCOLITICA Not Detected Not Detect. [facility] Enteroaggregative E. coli (EAEC) Not Detected Not Detect. [facility] Enteropathogenic E. coli (EPEC) Not Detected Not Detect. [facility] Enterotoxigenic E. coli (ETEC) lt/st Not Detected Not Detect. [facility] Shiga-like toxin-producing E. coli (STEC) stx1/stx2 Not Detected Not Detect. [facility] E coli O157 Not applicable Not Detect. [facility] Comment:E. coli containing t he O157 antigen are a subset ofShiga-like toxin- producing E. coli (STEC). Shigella/Enteroinvasive E. coli (EIEC) Not Detected Not Detect. [facility] Cryptosporidium Not Detected Not Detect. [facility] Cyclospora cayetanensis Not Detected Not Detect. [facility] Entamoeba histolytica Not Detected Not Detect. [facility] Giardia lamblia Not Detected Not Detect. [facility] Adenovirus F 40/41 Not Detected Not Detect. [facility] Astrovirus Not Detected Not Detect. [facility] Norovirus GI/GII Not Detected Not Detect. [facility] Rotavirus A Not Detected Not Detect. [facility] Sapovirus Not Detected Not Detect. [facility] Comment: All results must be [...] assay is performed by Multiplexed PCR, utilizing [employer] Array. 10/02/2024 12:2 4 PM EDT 10/02/2024 12:27 PM EDT us Generic External Data Provider LAB MICROBIOLOGY - GENERAL ORDERABLES Final Result [facility] [address] [place] [phone] * (ABNORMAL) CBC auto differential (10/02/2024 10:03 AM EDT) White Blood Count 6.7 4.8 - 10.8 X10*3/uL [facility] Red Blood Count 4.52 4.20 - 5.50 X10*6/uL [facility] Hemoglobin 12.1 12.0 - 16.0 g/dl [facility] Hematocrit 38.2 37.0 - 47.0 % [facility] Mean Corpuscular Volume 84.5 80.0 - 98.0 fL [facility] Mean Corpuscular Hemoglobin 26.8(L) 27.0 - 33.0 pg [facility] Mean Corpuscular HGB Conc 31.7 31.0 - 35.0 g/dl [facility] Red Cell Distribution Width 13.7 11.0 - 16.0 % [facility] Platelet Count 324 160 - 400 X10*3/uL [facility] Mean Platelet Volume 9.3(L) 9.4 - 12.3 fL [facility] Neutrophils Percent Auto 47.6 45 - 73 % [facility] Imm Gran Pct Auto 0.1 0.0 - 0.4 % [facility] Lymphocytes Percent Auto 42.4(H) 20 - 40 % [facility] Monocytes Percent Auto 8.0 2 - 11 % [facility] Eosinophils Percent Auto 1.3 0 - 4 % [facility] Basophils Percent Auto 0.6 0 - 2 % [facility] NRBC Pct Auto 0.0 0.0 - 0.2 /100WBC [facility] Neutrophils Absolute Auto 3.2 2.0 - 8.3 x10*3/uL [facility] Imm Gran Abs Auto 0.01 0.00 - 0.03 X10*3/uL [facility] Lymphocytes Absolute Auto 2.9 1.2 - 4.9 X10*3/uL [facility] Monocytes Absolute Auto 0.5 0.1 - 1.2 X10*3/uL [facility] Eosinophils Absolute Auto 0.1 0.0 - 0.4 X10*3/uL [facility] Basophils Absolute Auto 0.0 0.0 - 0.2 X10*3/uL [facility] NRBC Abs Auto 0.000 0.0 - 0.012 X10*3/uL [facility] 10/02/2024 10:0 3 AM EDT 10/02/2024 10:06 AM EDT us Generic External Data Provider LAB BLOOD ORDERAB LES Final Result [facility] [address] [place] [phone] * Magnesium (10/02/2024 10:03 AM EDT) Magnesium 2.2 1.6 - 2.6 mg/dL [facility] 10/02/2024 10:0 3 AM EDT 10/02/2024 10:06 AM EDT us Generic External Data Provider LAB BLOOD ORDERAB LES Final Result Performing Organization Address City/[facility]/ZIP Co de Phone Number [facility] [address] [place] [phone] * Lipase (10/02/2024 10:03 AM EDT) [facility] Lipase 39 8 - 78 U/L [facility] 10/02/2024 10:0 3 AM EDT 10/02/2024 10:06 AM EDT us Generic External Data Provider LAB BLOOD ORDERAB LES Final Result Performing Organization Address [facility] Co de Phone Number [facility] [address] [place] [phone] * Hepatic Function Panel (10/02/2024 10:03 AM EDT) Pathologist [facility] Bilirubin, Total 0.3 0.0 - 1.0 mg/dL [facility] Bilirubin, Direct 0.1 0.0 - 0.5 mg/dL [facility] Aspartate Amino Transferase 22 5 - 31 U/L [facility] Alanine Aminotransferase 22 0 - 31 U/L [facility] Total Protein 7.6 6.5 - 8.0 g/dL [facility] Albumin Level 4.6 3.5 - 5.0 g/dL [facility] Alkaline Phosphatase 70 39 - 117 U/L [facility] 10/02/2024 10:0 3 AM EDT 10/02/2024 10:06 AM EDT us Generic External Data Provider LAB BLOOD ORDERAB LES Final Result Performing Organization Address City/[facility]/ZIP Co de Phone Number [facility] [address] [place] [phone] [phone] * (ABNORMAL) Basic Metabolic Panel (10/02/2024 10:03 AM EDT) Pathologist [facility] Sodium 138 135 - 145 mmol/L [facility] Potassium 4.8 3.3 - 5.1 mmol/L [facility] Chloride 105 96 - 108 mmol/L [facility] Carbon Dioxide 28 22 - 29 mmol/L [facility] Anion Gap 10(L) 12 - 20 [facility] Urea Nitrogen (BUN) 18(H) 9 - 16 mg/dL [facility] Creatinine, Serum 0.85 0.5 - 1.4 mg/dL [facility] Creatinine Clr Calc Pharmacy 69.5 [facility] Comment:Provided height and weight: 162.56 cm,74.5 kg.eGFR (calculated from the MDRD study equation) and eCrCl(calculated from the Cockcroft-Gault equation) are based ondifferent parameters and may not yield comparable results.If eCrCl result is absurd, please check patient'sheight/weight. Estimated Glomerular Filt Rate >60 [facility] Comment:Chronic Kidney Disea se: Estimated GFR < 60 mL/min/[id number] Kidney Disease: Estimated GFR < 15 mL/min/1.73m2 Glucose 99 60 - 115 mg/dL [facility] Calcium 9.4 8.4 - 10.2 mg/dL [facility] 10/02/2024 10:0 3 AM EDT 10/02/2024 10:06 AM EDT us Generic External Data Provider LAB BLOOD ORDERAB LES Final Result [facility] [address] [place] [phone] * Bacterial Vaginosis (10/02/2024 8:16 AM EDT) Pathologist [facility] TRICHOMONAS VAGINALIS DETECTION BY PCR NOT DETECTED Not Detect [facility] BACTERIAL VAGINOSIS DETECTION BY PCR NEGATIVE Negative [facility] Comment:The BV organism targ ets [...] DETECTION BY PCR NOT DETECTED Not Detect [facility] Heather glab krusei PCR NOT DETECTED Not Detect [facility] 10/02/2024 8:16 AM EDT 10/02/2024 2:10 PM EDT Generic External Data Provider LAB MICROBIOLOGY - GENERAL ORDERABLES Final Result Performing Organization Address City/[facility]/ZIP Co de Phone Number [facility] [address] [place] [phone] * Culture, Urine, Routine (10/02/2024 8:16 AM EDT) Urine Urine specimen obtained by clean catch procedure / Unknown 10/02/2024 8:16 AM EDT 10/02/2024 2:10 PM EDT Comment:UACC Narrative [facility] - 10/03/2024 9:10 AM EDT Urine Culture No growth. Specimen Source: Urine clean catch Generic External Data Provider LAB MICROBIOLOGY - GENERAL ORDERABLES Final Result Performing Organization Address City/[facility]/ZIP Co de Phone Number [facility] [address] [place] [phone] * BI Mammogram Screening Tomosynthesis Bilateral (03/10/2024 12:48 PM EST) Anatomical Region Laterality Modality Breast Bilateral Mammography 03/10/2024 12:4 8 PM EST Narrative 03/16/2024 5:47 PM EST [address] [place] [address] Mammography Report Signed Patient: Kacy Merritt MR#: [id number] 9 : 1965 Acct:[id number] Age/Sex: 58 / F ADM Date: 03/10/24 Loc: HO.MAMMO Attending Dr: Vidhya Padilla NP Ordering Physician: Vidhya Padilla NP Results: 1Negativ e Date of Service: 03/10/24 Follow Up: 1 Year From Orig inal Mammogram Procedure(s): MM tomosynthesis screening BI Accession Number(s): [id number] cc: Vidhya Padilla NP EXAMINATION: MM SCREENING [...] by: Daiana Segal DO 03/16/2024 05:44 PM [facility] Dictated By: Daiana Segal DO Signed By: <Electronically signed by Daiana Segal DO in OV> 03/16/24 1744 DD/ 1248 TD/TT: 03/10/24 1308 Heat Sealing Machine Operator: Procedure Note Donotuseinterpreter, Image - 03/16/[address] [place] [address] Mammography Report Signed Patient: Lashon MerrittR#: [id number] 9 : 1965Acct:[id number] Age/Sex: 58 / FADM Date: 03/10/24 Loc: HO.MAMMO Attending Dr: Vidhya Padilla PRESIDENT Ordering Physician: Vidhya Padilla NPResults: 1Negativ e Date of Service: 03/10/24Follow Up: 1 Year From Orig ina Mammogram Procedure(s): MM tomosynthesis screening BI Accession Number(s): [id number] cc: Vidhya Padilla PRESIDENT EXAMINATION: MM SCREENING DIGITAL BREAST TOMOSYNTHESIS, BILATERAL [...] 03/16/24 1744 DD/ 1248 TD/TT: 03/10/24 1308 Heat Sealing Machine Operator: Vidhya Padilla USABILITY ARCHITECT IMG BI PROCEDURES Edited Result - Final * Hepatitis Panel, General (03/14/2023 10:20 AM EST) Hepatitis A IgM Nonreactive Nonreactive [facility] Comment:IgM antibodies to QUEZADA V not detected; does not exclude earlyacute or recovered HAV infection. ~Hepatitis B Surface Antibody NONREACTIVE Nonreactive [facility] Comment:Nonreactive: < 8.00 mIU/mL Hepatitis B Core Antibody Nonreactive Nonreactive [facility] Hepatitis C Antibody Nonreactive Nonreactive [facility] Comment:Antibodies to HCV no t detected; does not exclude early acuteHCV infection. Hepatitis B Surface Ag Negative Negative [facility] 03/14/2023 10:2 0 AM EST 03/14/2023 10:26 AM EST us Generic External Data Provider LAB BLOOD ORDERAB LES Final Result [facility] [address] [place] [phone] * Colonoscopy (05/10/2022 8:39 AM EDT) Colonoscopy Normal Normal Narrative Shanice Perez - 05/10/2022 8:39 AM EDT Recommended 3 year follow up ([facility]) Historical Provider HEALTH MAINTENANCE Edited Result - [...] LDL-C. Eliceo SS et al. ROLDAN. 2013;310(19): 1948-8407 (http://education.Musicmetric.[employer]/faq/MKA176) Non-HDL Cholesterol 181(H) <130 mg/dL (calc) [facility] Comment: For patients with diabetes plus 1 major ASCVD risk factor, treating to a non-HDL-C goal of <100 mg/dL (LDL-C of <70 mg/dL) is considered a therapeutic option. Triglycerides 126 <150 mg/dL [facility] 08/05/2021 9:50 AM EDT us Claribel Grissom MD LAB BLOOD ORDERABLES Final R esult [facility] [address] from Last 3 Months or Most Recently Relevant to Health Maintenance Insurance [employer] C3 Care Teams Earth Science Teacher Relationship Specialty Start Date End Date Name, MD Les [address] [place], [place] PCP - General Internal Medicine 10/09/23
--- OUTSIDE RECORDS SUMMARY | 2024-10-23 11:18 | XMS_ITS | Encounter Summary ---
Author Organization [facility] Address [address] [place] [address] Care Team Providers Care Stacker Attendant Name Role Phone Vidhya Padilla SENIOR CLINICAL DATA MANAGER Primary Care Provider [phone] Reason for Visit * Reason Onset Date Comments PAC Appt Request - New 07/27/2022 Encounter Details Date Type Department Care Team ([facility] Contact Info) Description 07/27/2022 Telephone [facility] [address] [place] [phone] Telephone Intake, Staff PAC Appt Request - [...] available is February, please call patient with lang interpreter to schedule appt. documented in this encounter Plan of Treatment Upcoming Encounters Date Type Department Care Team (Late st Contact Info) Description 12/05/2024 10:00 AM EDT Follow-Up [facility] A [address] [place] [address] Patsy Le MD [address] [place] [phone] 01/12/2025 9:00 AM EST Appointment [facility] [address] [place] [phone] Giovany Machado MD [address] [place] [phone] Tong Shultz RT(R) 02/09/2025 9:00 AM EST Follow-Up [facility] Neurology [address] [place] [phone] Mary Maria MD [address] [place] [phone] documented as of this encounter Visit Diagnoses Not on filedocumented in this encounter Additional Health Concerns Infection Onset Date Last Indicated Resolved Time R/O C.diff 08/25/2022 08/25/2022 08/25/2022 3:19 PM EDT R/O C.diff 09/06/2022 09/06/2022 09/06/2022 12:3 1 PM EDT R/O C.diff 10/03/2022 10/03/2022 10/04/2022 4:31 AM EDT documented as of this encounter Care Teams Stacker Attendant Relationship Specialty Start Date End Date Vidhya Padilla NP [address] [place] [address] PCP - General Family Medicine 07/27/22 documented as of this encounter
--- OUTSIDE RECORDS SUMMARY | 2024-10-23 11:19 | XMS_ITS | Encounter Summary ---
Author Organization [employer] Address [address] [place] [address] [place] [address] Care Team Providers Care Database Reporting Consultant Name Role Phone Claribel Grissom MD Primary Care Provider Vidhya Parker VISUAL DESIGNER Primary Care Provider [phone] NameLes MD Primary Care Provider [phone] Encounter Details Date Type Department Care Team ([facility] Contact Info) Description 01/25/2022 Telephone [facility] [address] [place] [phone] Claribel Grissom MD Social History Tobacco Use [...] Upcoming Encounters Date Type Department Care Team ([facility] Contact Info) Description 11/17/2024 10:15 AM EDT Office Visit [facility] [address] [place] [address] [phone] Les Torres MD [address] [place] [phone] documented as of this encounter Visit Diagnoses Not on filedocumented in this encounter Care Teams Database Reporting Consultant Relationship Specialty Start Date End Date Claribel Grissom MD PCP - General Family Medicine 12/09/18 02/06/22 Vidhya Padilla FNP [address] [place] [address] PCP - General Family Medicine 02/07/22 10/08/23 Les Torres MD [address] [place] [address] PCP - General Internal Medicine 10/09/23 documented as of this encounter
--- OUTSIDE RECORDS SUMMARY | 2024-10-23 11:19 | XMS_ITS | Encounter Summary ---
Author Organization [facility] Address [address] [place] [address] Care Team Providers Care Guest Experience Manager Name Role Phone Vidhya Padilla FURNITURE PACKER Primary Care Provider [phone] Encounter Details Date Type Department Care Team (Late Contact Info) Description 11/08/2020 Orders Only [facility]rology [facility] [address] [place] [address] Santy Madison MD [address] [place], [place] [phone] Social History Tobacco Use Types Packs/Day Years [...] Info) Description 12/05/2024 10:00 AM EDT Follow-Up [facility] A [address] [place] [address] Patsy Le MD [address] [place] [address] 01/12/2025 9:00 AM EST Appointment [facility] Neurodiagnostics [address] [place] [address] Giovany Machado MD [address] [place] [address] Tong Shultz RT(R) 02/09/2025 9:00 AM EST Follow-Up [facility] Neurology [address] [place] [address] Mary Maria MD [address] [place] [address] documented as of this encounter Visit Diagnoses Not on filedocumented in this encounter Additional Health Concerns Infection Onset Date Last Indicated Resolved Time R/O C.diff 08/25/2022 08/25/2022 08/25/2022 3:19 PM EDT R/O C.diff 09/06/2022 09/06/2022 09/06/2022 12:3 1 PM EDT R/O C.diff 10/03/2022 10/03/2022 10/04/2022 4:31 AM EDT documented as of this encounter Care Teams Guest Experience Manager Relationship Specialty Start Date End Date Vidhya Padilla NP [address] [place] [address] PCP - General Family Medicine 07/27/22 documented as of this encounter
--- OUTSIDE RECORDS SUMMARY | 2024-10-23 11:19 | XMS_ITS | Encounter Summary ---
Author Organization [employer] Address [address] [place] [address] 7 [place] [address] Care Team Providers Care Crewman Main Battle Tank Name Role Phone Vidhya Padilla Primary Care Provider [phone] NameLes MD Primary Care Provider [phone] Encounter Details Date Type Department Care Team ([facility] Contact Info) Description 03/21/2022 Orders Only [facility] [address] [place] [address] Vidhya Padilla FNP [address] [place] [address] Sigmoid diverticulitis (Primary Dx) Social History Tobacco [...] Upcoming Encounters Date Type Department Care Team ([facility] Contact Info) Description 11/17/2024 10:15 AM EDT Office Visit [facility] [address] [place] [address] Name, MD Les [address] [place] [address] documented as of this encounter Visit Diagnoses Diagnosis Sigmoid diverticulitis- Primary Diverticulitis of colon (without mention of hemorrhage) documented in this encounter Care Teams Crewman Main Battle Tank Relationship Specialty Start Date End Date Vidhya Padilla FNP [address] [place] [address] PCP - General Family Medicine 02/07/22 10/08/23 Name, MD Les [address] [place] [address] PCP - General Internal Medicine 10/09/23 documented as of this encounter
--- OUTSIDE RECORDS SUMMARY | 2024-10-23 11:19 | XMS_ITS | Encounter Summary ---
Author Organization [employer] Address [address] [place] [address] 7 [place] [address] Care Team Providers Care Stummel Selector Name Role Phone Vidhya Padilla Primary Care Provider [phone] Les Torres MD Primary Care Provider [phone] Encounter Details Date Type Department Care Team (Late Contact Info) Description 07/20/2022 Abstract [facility] [address] [place] [address] Vidhya Padilla FNP [address] [place] [address] Social History Tobacco Use Types Packs/Day Years [...] Description 11/17/2024 10:15 AM EDT Office Visit [facility] [address] [place] [address] NameLes MD [address] [place] [address] documented as of this encounter Procedures Procedure Name Priority Date/Time Associated Diagnosis Comments COLONOSCOPY Routine 05/10/2022 8:39 AM EDT documented in this encounter Results * Colonoscopy (05/10/2022 8:39 AM EDT) Colonoscopy Normal Normal Narrative Shanice Perez - 05/10/2022 8:39 AM EDT Recommended 3 year follow up ([facility]) us Historical Provider [facility] Edited Result - Final documented in this encounter Visit Diagnoses Not on filedocumented in this encounter Additional Health Concerns Assessment Noted Time PHQ-9 Depression Total Score: 18 023 9:14 AM EDT documented as of this encounter Care Teams Stummel Selector Relationship Specialty Start Date End Date Vidhya Padilla FNP [address] [place] [address] PCP - General Family Medicine 02/07/22 10/08/23 Name, MD Les [address] [place] [address] PCP - General Internal Medicine 10/09/23 documented as of this encounter
--- OUTSIDE RECORDS SUMMARY | 2024-10-23 11:19 | XMS_ITS | Encounter Summary ---
Author Organization [employer] Address [address] [place] [address] 7 [place] [address] Care Team Providers Care Study Assistant Name Role Phone Vidhya Padilla Primary Care Provider [phone] Name, Les GARCIA Primary Care Provider [phone] Reason for Visit * Reason Onset Date Comments Referral 03/01/2022 Encounter Details Date Type Department Care Team ([facility] st Contact Info) Description 03/01/2022 Telephone [facility] [address] [place] [address] Vidhya Padilla FNP [address] [place], [place] [phone] Referral Social History Tobacco Use Types Packs/Day [...] 2:52 PM EST Telephone call to [facility] urology in regards to pt's referral. Pt needs referral for cyst in kidney andabdominal pain per [facility]. N28.1 and R10.9 respectively. * Telephone Encounter - Nolan Carlisle - 03/01/2022 9:03 AM EST Tc from pt requesting a referral to [facility]. Pt states she received a call and she was advised to request a referral do to something in her Left Kidney. Refiner Operator was attempting togather details, pt was unable to provide details. 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
--- OUTSIDE RECORDS SUMMARY | 2024-10-23 11:19 | XMS_ITS | Clinical Summary ---
Author Organization [facility] Address [address] [place] [address] Care Team Providers Care Screen Machine Operator Name Role Phone Vidhya Padilla PATTERNMAKER BENCH Primary Care Provider [phone] Allergies Active Allergy Reactions Criticality Noted Date [...] - 10/15/2024 11:59 PM EDT Hospital Encounter [facility] [address] [place] [address] Patsy Le MD Bilateral occipital neuralgia (Primary Dx) Discharge Disposition: Home or Self Care () 10/03/2024 Refill [facility] Neurology [address] [place] [address] Mary Maria MD 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; Dizziness; Muscle tension headache 09/30/2024 8:33 AM EDT - 09/30/2024 11:59 PM EDT Hospital Encounter [facility] Neurodiagnostics [address] [place] [address] Giovany Machado MD Georges, Patrick 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 (Primary Dx) Discharge Disposition: Home or Self Care () 09/30/2024 Orders Only [facility] Neurology Clinic [address] [place] [address] Giovany Machado MD 09/30/2024 Orders Only [facility] B [address] [place] [address] Patsy Le MD Bilateral occipital neuralgia (Primary Dx) 08/05/2024 Orders Only [facility] Neurology Clinic [address] [place] [address] Giovany Machado MD 07/25/2024 10:15 AM EDT Office Visit [facility] A [address] [place] [address] Patsy Le MD Bilateral occipital neuralgia (Primary [...] Info) Description 12/05/2024 10:00 AM EDT Follow-Up [facility] A [address] [place] [address] Patsy Le MD [address] [place] [address] 01/12/2025 9:00 AM EST Appointment [facility] Neurodiagnostics [address] [place] [address] Giovany Machado MD [address] [place] [address] Tong Shultz RT(R) 02/09/2025 9:00 AM EST Follow-Up [facility] Neurology [address] [place] [address] Mary Maria MD [address] [place] [address] Health Maintenance Due Date Last Done Comments [...] complete this topic Procedures * Due to [place] Fast[employer] law, this organization might not be sharing negative HIV tests. Procedure Name Priority Date/Time Associated Diagnosis Comments IN INJECT NERV BLCK,GREAT OCCIPTL Routine 10/15/2024 10:15 AM EDT Bilateral occipital neuralgia GLUCOSE, RANDOM Routine 07/18/2018 11:28 AM EDT Optic nerve swelling Migraine aura, persistent, intractable from Last 3 Months or Most Recently Relevant to Health Maintenance Results * Due to [place] [employer] law, this organization might not be sharing negative HIV tests. * IN INJECT NERV BLCK,GREAT OCCIPTL (10/15/2024 10:15 AM [...] Patient's understanding of procedure matches consent: Yes [place] Protocol: Procedure consent matches procedure scheduled: Yes [...] outpatient to the ambulatory injection suite at [facility]. Vital signs were monitored before [...] - 99 mg/dL 07/18/2018 12:01 PM EDT [facility] Blood specimen (specimen) Structure of peripheral vein / Unknown Venipuncture / Unknown 07/18/2018 11:28 AM EDT 07/18/2018 11:35 AM EDT Mary Maria MD LAB BLOOD ORDERABLES Final Resul t [facility] [address] [place] [address], from Last 3 Months or Most Recently Relevant to Health Maintenance Insurance [employer] Care Teams Screen Machine Operator Relationship Specialty Start Date End Date Vidhya Pdailla NP [address] [place] [address] PCP - General Family Medicine 07/27/22
--- OUTSIDE RECORDS SUMMARY | 2024-10-23 11:19 | XMS_ITS | Encounter Summary ---
Author Organization [employer] Address [address] [place] [address] 7 [place] [address] Care Team Providers Care Die Cut Operator Name Role Phone Vidhya Padilla Primary Care Provider [phone] NameLes MD Primary Care Provider [phone] Reason for Visit * Reason Comments Med Change Request Encounter Details Date Type Department Care Team ([facility] st Contact Info) Description 08/02/[address] [facility] MED[facility] [address] [place] [address] Vidhya Padilla FNP [address] [place] [address] Social History Tobacco Use Types Packs/Day Years [...] 10:15 AM EDT Office Visit [facility] [address] [place] [address] NameLes MD [address] [place] [address] documented as of this encounter Visit Diagnoses Not on filedocumented in this encounter Additional Health Concerns Assessment Noted Time PHQ-9 Depression Total Score: 18 023 9:14 AM EDT documented as of this encounter Care Teams Die Cut Operator Relationship Specialty Start Date End Date Vidhya Padilla FNP [address] [place] [address] PCP - General Family Medicine 02/07/22 10/08/23 Name, MD Les [address] [place] [address] PCP - General Internal Medicine 10/09/23 documented as of this encounter
[2024-11-11 14:34] VITALS: BMI 27.5
--- NOTE | 2024-11-12 14:48 | HO.ANESPROP2 ---
Documented by User: Nazanin Esquivel NP 11/12/24 14:48 HPI - Anesthesia Eval Consult details Narrative: 59 yr old female for Sigmoidoscopy Flexible PMFSH Active Problems Active Problems: All Active Problems C. difficile enteritis (Acute) Hemorrhoids (Acute) Microscopic hematuria (Acute) Encounter for well woman exam with routine gynecological exam (Acute) Incontinence in female (Acute) Renal cyst (Acute) Encounter to discuss test results (Acute) Abdominal mass (Acute) Pelvic pain in female (Acute) Encounter for annual routine gynecological examination (Acute) Abdominal cramping (Acute) Epigastric pain (Acute) Pelvic mass (Acute) Bleeding hemorrhoids (Acute) Chronic abdominal pain (Acute) Diverticular disease of colon (Acute) Irritable bowel syndrome with diarrhea (Acute) Clostridioides difficile diarrhea (Acute) Tubular adenoma of colon (Acute) Left lower quadrant pain (Acute) Diarrhea (Acute) Acute diverticulitis (Acute) Past Medical History Medical History Pelvic mass Kidney anomaly, congenital Bleeding hemorrhoids Chronic abdominal pain LLQ cramping Diverticular disease of colon Clostridioides difficile diarrhea Colitis Left lower quadrant pain Tubular adenoma of colon Irritable bowel syndrome with diarrhea Sigmoid diverticulitis Acute diverticulitis Diarrhea Diverticulitis Abdominal pain Lower abdominal pain Chronic idiopathic constipation Constipation GERD (gastroesophageal reflux disease) Family History Family History Father Cancer HTN (hypertension) Mother HTN (hypertension) Hyperthyroidism Migraine headache Maternal Grandmother History of breast cancer Paternal Grandmother History of breast cancer Family/Other Colon cancer Paternal Aunt Ovarian cancer Family history of problems with anesthesia: No Surgical History Surgical History History of surgery History of intestinal surgery History of partial hysterectomy (~09/2006) Hx of hemorrhoidectomy (2008) Hx of colonoscopy (11/14/23) History of esophagogastroduodenoscopy (EGD) (11/14/23) History of Problems with Anesthesia: No Social History Social History Household Members: Family and None Housing: Apartment Are you a primary workforce investment act career manager to a significant other at home: No Do you presently have visiting nurse or other home services: No Alcohol intake: never Patient Tobacco Use Status: Never used Tobacco Use of substances other than those prescribed or required for medical reasons: No Advance Directives: No Advance Directives Information Provided: Yes service: No Current occupational status: disabled Current occupational exposures/hazards: No Meds Allergies Allergy/AdvReac Type Severity Reaction Status Date / Time Penicillins (PENICILLINS) Allergy Intermediate HIVES/SWELL Verified 10/17/24 11:07 ING bupropion (From Wellbutrin) Allergy hives, Verified 10/17/24 11:07 swelling Home Medications ?Medication ?Instructions ?Recorded ?Confirmed ?Last Taken ?Type lisinopril 20 mg tablet 20 mg PO DAILY 11/25/21 11/11/24 12/09/22 History metoprolol tartrate 25 mg tablet 25 mg PO BID 11/25/21 11/13/24 11/13/24 08:00 History nortriptyline 50 mg capsule 100 mg PO BEDTIME 11/25/21 11/11/24 01/10/22 History sumatriptan succinate 100 mg tablet 100 mg PO DAILY PRN migraine 11/25/21 11/11/24 01/11/22 History buspirone 15 mg tablet 15 mg PO BID 01/01/24 11/11/24 Unknown History galcanezumab-gnlm 120 mg/mL mg subcut 01/01/24 Unknown History subcutaneous syringe (Emgality) eszopiclone 2 mg tablet 2 mg PO BEDTIME sleep disorder 04/28/24 11/11/24 Unknown History aripiprazole 15 mg tablet 15 mg PO QAM 06/09/24 11/11/24 Unknown History esomeprazole magnesium 20 mg 20 mg PO DAILY 10/17/24 11/11/24 Unknown History capsule,delayed release magnesium gluconate 27 mg 27 mg PO DAILY 10/17/24 11/11/24 Unknown History magnesium (500 mg) tablet riboflavin (vitamin B2) 100 mg 400 mg PO DAILY 10/17/24 11/11/24 Unknown History tablet (Vitamin B-2) Exam Height,Weight and Vital Signs: Height 5 ft 4 in Weight 72.575 kg Assessment and Plan Final Anesthetic Review Family History of Problems with Anesthesia: No History of Problems with Anesthesia: No Documented by User: Dany Armendariz MD 11/13/24 12:27 [facility] Past Medical History Medical History Pelvic mass Kidney anomaly, congenital Bleeding hemorrhoids Chronic abdominal pain LLQ cramping Diverticular disease of colon Clostridioides difficile diarrhea Colitis Left lower quadrant pain Tubular adenoma of colon Irritable bowel syndrome with diarrhea Sigmoid diverticulitis Acute diverticulitis Diarrhea Diverticulitis Abdominal pain Lower abdominal pain Chronic idiopathic constipation Constipation GERD (gastroesophageal reflux disease) Cognitive capacity: normal Functional capacity: independent ambulation Family History Family History Father Cancer HTN (hypertension) Mother HTN (hypertension) Hyperthyroidism Migraine headache Maternal Grandmother History of breast cancer Paternal Grandmother History of breast cancer Family/Other Colon cancer Paternal Aunt Ovarian cancer Surgical History Surgical History History of surgery History of intestinal surgery History of partial hysterectomy (~09/2006) Hx of hemorrhoidectomy (2008) Hx of colonoscopy (11/14/23) History of esophagogastroduodenoscopy (EGD) (11/14/23) Social History Social History Household Members: Family and None Housing: Apartment Are you a primary workforce investment act career manager to a significant other at home: No Do you presently have visiting nurse or other home services: No Alcohol intake: never Patient Tobacco Use Status: Never used Tobacco Use of substances other than those prescribed or required for medical reasons: No Advance Directives: No Advance Directives Information Provided: Yes service: No Current occupational status: disabled Current occupational exposures/hazards: No Meds Allergies Allergy/AdvReac Type Severity Reaction Status Date / Time Penicillins (PENICILLINS) Allergy Intermediate HIVES/SWELL Verified 10/17/24 11:07 ING bupropion (From Wellbutrin) Allergy hives, Verified 10/17/24 11:07 swelling Home Medications ?Medication ?Instructions ?Recorded ?Confirmed ?Last Taken ?Type lisinopril 20 mg tablet 20 mg PO DAILY 11/25/21 11/11/24 12/09/22 History metoprolol tartrate 25 mg tablet 25 mg PO BID 11/25/21 11/13/24 11/13/24 08:00 History nortriptyline 50 mg capsule 100 mg PO BEDTIME 11/25/21 11/11/24 01/10/22 History sumatriptan succinate 100 mg tablet 100 mg PO DAILY PRN migraine 11/25/21 11/11/24 01/11/22 History buspirone 15 mg tablet 15 mg PO BID 01/01/24 11/11/24 Unknown History galcanezumab-gnlm 120 mg/mL mg subcut 01/01/24 Unknown History subcutaneous syringe (Emgality) eszopiclone 2 mg tablet 2 mg PO BEDTIME sleep disorder 04/28/24 11/11/24 Unknown History aripiprazole 15 mg tablet 15 mg PO QAM 06/09/24 11/11/24 Unknown History esomeprazole magnesium 20 mg 20 mg PO DAILY 10/17/24 11/11/24 Unknown History capsule,delayed release magnesium gluconate 27 mg 27 mg PO DAILY 10/17/24 11/11/24 Unknown History magnesium (500 mg) tablet riboflavin (vitamin B2) 100 mg 400 mg PO DAILY 10/17/24 11/11/24 Unknown History tablet (Vitamin B-2) Exam Exam Date and Time: 11/13/2024 Airway Mallampati Class: II TM Dist: >3cm Neck ROM: Full Loose/Missing/Broken Teeth: No Heart: normal Lungs: normal Other: normal Assessment and Plan Assessment Anesthesia Assessment: Anesthesia Plan Discussed and Chart Reviewed Final Anesthetic Review NPO: Yes ASA Class: II Final Preanesthetic Review: No Changes in Pt Med Stat, Meds/Allgs Chart Reviewed, Consent Obtained/Reviewed and Anes Risks/Benef Reviewed Patient Risk: Low Procedure Risk: Low Anesthetic Plan Anesthetic Plan: MAC: Disposition: Standard PACU
[2024-11-13 10:52] VITALS: BMI 26.8
[2024-11-13 10:57] VITALS: BP 118/87; PULSE 59; RESP 16; O2SAT 100
[2024-11-13] MEDS: Lactated Ringers 1,000 ML 100 ML IVCONT (11:05)
--- NOTE | 2024-11-13 12:21 | MHC.SHP ---
Pre-Procedural Eval Section A - 24 Hr Update-Section A only Date of Service: 11/13/24 The patient is an INPATIENT: No The patient has been examined within 24 hours of the surgical procedure. The History & Physical has been completed within 30 days and I have reviewed it.: Yes Section B - Complete if H&P > 30 days Chief Complaint: Diverticulosis of large intestine without perforat Allergies: Allergies Allergy/AdvReac Type Severity Reaction Status Date / Time Penicillins (PENICILLINS) Allergy Intermediate HIVES/SWELL Verified 10/17/24 11:07 ING bupropion (From Wellbutrin) Allergy hives, Verified 10/17/24 11:07 swelling Plan Diagnosis/Plan: Unchanged I have reviewed the history and physical and performed a pertinent physical examination on my patient. No changes have occurred unless specified. Time Spent With Patient Time: Total time managing care of this patient today ____ minutes.
--- NOTE | 2024-11-13 13:01 | W.PM.OPN ---
Operative Note Operative Note Date of Service: 11/13/24 Narrative: Procedure Description: sigmoidoscopy Indication: MAC Anesthesia: MAC Sigmoidoscopy Instrument: Pediatric colonoscope Colonoscopy Monitoring: Vital signs and clinical assessment, continuous EKG monitoring, Pulse oximetry, Carbon Dioxide monitoring and blood pressure monitoring were done throughout the procedure. Procedure: The patient was placed in the left lateral decubitis position and pre-procedure medications were administered. After a digital rectal examination of the ano-rectum, the video colonoscope was inserted into the rectum and advanced through the colon to the sigmoid colon The scope was slowly withdrawn in a retrograde panoramic fashion and the colon mucosa was carefully examined . Findings and interventions are described below. Procedure Difficulty: moderate, luminal narrowing in sigmoid Findings: Transverse Colon: Descending colon: x 1 sessile polyp 5-7 mm removed with cold forceps Sigmoid Colon: moderate diverticulosis, with granular mucosa, bx taken, x 2 sessile poylp 6-8 mm removed with cold snare Rectum: Granular mucosa , retroflexion with small internal hemorrhoids Anorectum - normal Colon preparation: fair Impression and Post Procedure Diagnosis: non specific colitis internal hemorrhoids colon polyps diverticulosis Plan: await path, also stool samples sent as well Above findings were reviewed with the patient and relevant handouts were provided if indicated.
[2024-11-13 13:09] VITALS: BP 86/42; PULSE 57; RESP 16; TEMP 36.3; O2SAT 100
[2024-11-13 13:16] VITALS: BP 91/49
[2024-11-13 13:19] VITALS: BP 96/46; O2SAT 100
[2024-11-13 13:24] VITALS: BP 99/57; PULSE 55; RESP 16; O2SAT 100
[2024-11-13 14:35] VITALS: BP 108/56; PULSE 80; RESP 18; TEMP 36.2; O2SAT 99
[2024-11-13 14:59] LABS: E. coli EAEC Not Detected (Not Detect.); E. coli EPEC Not Detected (Not Detect.); E. coli ETEC Not Detected (Not Detect.); E. coli STEC Not Detected (Not Detect.); Shigella sp./EIEC Not Detected (Not Detect.)
[2024-11-13 15:15] LABS: CDiff Gene PCR NEGATIVE (Negative)
[2024-11-20 01:08] LABS: Lactoferrin, Fecal, Quant. <6.25 mcg/mL (<7.25)
== END 2024-11-13 15:30 | disposition home or self-care (01) ==
PROVIDERS: PCP Nurse Practitioner Family; Visit Provider Internal Medicine Gastroenterology
PROC: 0DJD8ZZ Inspection of Lower Intestinal Tract, Via Natural or Artificial Opening Endoscopic (ICD-10-PCS; CPT 45330; principal; 2024-11-13 11:40)
DX: K57.30 Diverticulosis of large intestine without perforation or abscess without bleeding (principal); Z80.0 Family history of malignant neoplasm of digestive organs; K52.9 Noninfective gastroenteritis and colitis, unspecified; K51.40 Inflammatory polyps of colon without complications; D12.5 Benign neoplasm of sigmoid colon
CPT/HCPCS: 45331; 45338; 83631; 87493; 87507; 88305; J2003; J2704; J3010

== ENCOUNTER → 2024-11-13 08:49 | Outpatient (BNV) | payer MEDICAID, SELFPAY | PROVIDERS: PCP Nurse Practitioner Family; Visit Provider Internal Medicine Gastroenterology | DX: D12.5 Benign neoplasm of sigmoid colon (principal); D12.4 Benign neoplasm of descending colon; K57.30 Diverticulosis of large intestine without perforation or abscess without bleeding; K52.9 Noninfective gastroenteritis and colitis, unspecified; K64.8 Other hemorrhoids | CPT/HCPCS: 45331; 45338 ==

== ENCOUNTER 2024-11-21 12:36 | Outpatient (REF) | payer MEDICAID, SELFPAY ==
--- OUTSIDE RECORDS SUMMARY | 2024-11-17 10:15 | XMS_ITS | Encounter Summary ---
Author Organization [employer] [facility] [facility] [employer] Address [address] [facility] [address] [place] [address] Care Team Providers Care Windows Mobile Developer Name Role Phone Name, Les GARCIA Primary Care Provider [phone] Encounter Details Date Type Department Care Team ([facility] st Contact Info) Description 11/17/2024 10:15 AM EDT Office Visit [facility] [address] [place] [address] Name, MD Les [address] [place] [address] Healthcare maintenance (Primary Dx); Encounter for vaccination; Encounter for immunization; Dietary counseling; Exercise counseling Social History Tobacco Use Types Packs/Day Years Used Date Smoking Tobacco: Never Passive Smoke Exposure: Never Smokeless Tobacco: Never Tobacco Cessation:Counseling Given: Not Answered Alcohol Use Standard Drinks/Week Comments Never 0 (1 standard drink = 0.6 oz pur e alcohol) Depression Answer Date Recorded Patient Health Questionnaire-9 Score 9 11/17/2024 Patient Health Questionnaire-9 Score 9 11/17/2024 Last PHQ-9: Questionnaire Data Not on file 1 Housing Stability Answer Date Recorded What is your housing situation today? I have jayy campos 11/10/[address] you li ve. Do you have problems with any of the following? None of the above 11/10/2024 Food Insecurity Answer Date Recorded Within the past 12 months, y ou worried that your food would run out before you got money to buy more: Never True 11/10/2024 Within the past 12 months,th e food you bought just didn't last and you didn't have enough money to get more: Never True 07/2024 Transportation Answer Date Recorded In the past 12 months, has l ack of transportation kept you from medical appts, meetings, work or from getting things needed for daily living? No 11/10/2024 Utilities Answer Date Recorded In the past 12 months, has t he electric, gas, oil or water company threatened to shut off services in your home? No 11/10/2024 Depression Answer Date Recorded Patient Health Questionnaire-2 Score 3 11/17/2024 Internet Access Answer Date Recorded Internet Access Q1 Yes 11/10/2024 Internet Access Q2 Not on file 11/10/2024 Comments Unknown Sex and Gender Information Value Date Recorded Sex Assigned at Female 12/05/2021 10:15 AM EDT Legal Sex Female 10:15 AM EDT Gender Identity Female 12/05/2021 10:15 AM EDT Sexual Orientation Lesbian or Trent 12/05/2021 10 :15 AM EDT documented as of this encounter Last Filed Vital Signs Vital Sign Reading Time Taken Comments Blood Pressure 112/78 11/17/2024 10:04 AM EDT Pulse 61 11/17/2024 10:04 AM EDT Temperature 36.1 C (96.9 F) 11/17/2024 10:04 AM EDT Respiratory Rate 14 11/17/2024 10:0 4 AM EDT Oxygen Saturation 98% 11/17/2024 10: 04 AM EDT Inhaled Oxygen Concentration - - Weight 71.1 kg (156 lb 12.8 oz) 025 10:04 AM EDT Height 162.6 cm (5' 4 ) 11/17/2024 10:0 4 AM EDT Body Mass Index 26.91 11/17/2024 10:04 AM EDT documented in this encounter Functional Status * Over the past 2 weeks, how often have you been bothered by any of the following problems? Question Answer Date of Assessment Author Patient Health Questionnaire-2 Score 3 11/17/2024 11:31 AM EDT Gilson Falk MA * Little interest or pleasure in doing things Answer Date of Assessment Author More than half the days 11/17/2024 11:31 AM EDT Miladys Falk MA * Feeling down, depressed, or hopeless Answer Date of Assessment Author Several days 11/17/2024 11:31 AM Miladys Batres MA * Trouble falling or staying asleep, or sleeping too much Answer Date of Assessment Author Several days 11/17/2024 11:31 AM iMladys Batres MA * Feeling tired or having little energy Answer Date of Assessment Author Several days 11/17/2024 11:31 AM WAGNERT Miladys Falk MA * Poor appetite or overeating Answer Date of Assessment Author Nearly every day 11/17/2024 11:31 AM WAGNERT Miladys Gonzalez MA * Feeling bad about yourself - or that you are a failure or have let yourself or your family down Answer Date of Assessment Author Not at all 11/17/2024 11:31 AM Miladys Batres MA * Trouble concentrating on things, such as reading the newspaper or watching television Answer Date of Assessment Author Several days 11/17/2024 11:31 AM Miladys Batres MA * Moving or speaking so slowly that other people could have noticed? Or the opposite - being so fidgety or restless that you have been moving around a lot more than usual. Answer Date of Assessment Author Not at all 11/17/2024 11:31 AM Miladys Batres MA * Thoughts that you would be better off or hurting yourself in some way Answer Date of Assessment Author Not at all 11/17/2024 11:31 AM Miladys Batres MA * Patient Health Questionnaire-9 Score Answer Date of Assessment Author 9 11/17/2024 11:31 AM Miladys Batres MA * Over the last 2 weeks, how often have you been bothered by any of the following problems? Question Answer Date of Assessment Author Feeling nervous, anxious, or on edge 2 11/17/2024 11:32 AM Vinny Batres MA Not being able to stop or control worrying 2 11/17/2024 11:32 AM EDT Vinny Falk MA Worrying too much about different things 1 11/17/2024 11:32 AM EDT Vinny Falk MA Trouble relaxing 1 11/17/2024 11:32 AM EDT Miladys Falk MA Being so restless that it is hard to sit still 1 11/17/2024 11:32 AM EDT Vinny Falk MA Becoming easily annoyed or irritable 0 11/17/2024 11:32 AM EDT Vinny Falk MA Feeling afraid as if something awful might happen 1 11/17/2024 11:32 AM EDT Miladys Gonzalez MA CASEY-7 Total Score 8 11/17/2024 11:32 AM EDT Miladys Falk MA documented as of this encounter Progress Notes * Les Torres MD - 11/17/2024 10:15 AM EDT Subjective: Kacy Merritt is a 59 y.o. female who presents to the office for a physical exam. Interim history: Followed by merchandising professor for colitis, nephrology for kidney cyst, and neurology for migraines. Established with therapist. Current concerns: Would like to have her gall bladder checked due to frequent vomiting and diarrhea and stomach pain.The gall bladder was visualized on a CT of abdomen/pelvis in September. Gall bladder was unremarkable. Problem List[1] Surgical History[2] Allergies[3] Review of Systems Constitutional: Positive for appetite change, chills, fatigue, fever and unexpected weight change. Tactile fever 4-5 days ago. Decreased appetite HENT: Negative for hearing loss. Eyes: Negative for visual disturbance. Respiratory: Negative for shortness of breath. Cardiovascular: Negative for chest pain. Gastrointestinal: Positive for abdominal pain, diarrhea, nausea and vomiting. Musculoskeletal: Positive for arthralgias. Neurological: Positive for headaches. Psychiatric/Behavioral: Positive for dysphoric mood. The patient is nervous/anxious. Vitals: 11/17/24 1004 BP: 112/78 BP Location: Left arm Patient Position: Sitting BP Cuff Size: Adult Pulse: 61 Resp: 14 Temp: 96.9 ??F (36.1 ??C) TempSrc: Temporal SpO2: 98% Weight: 156 lb 12.8 oz (71.1 kg) Height: 5' 4 (1.626 m) Physical Exam Constitutional: Appearance: Normal appearance. HENT: Right Ear: Tympanic membrane, ear canal and external ear normal. Left Ear: Tympanic membrane, ear canal and external ear normal. Cardiovascular: Rate and Rhythm: Normal rate and regular rhythm. Pulses: Normal pulses. Heart sounds: Normal heart sounds. Pulmonary: Effort: Pulmonary effort is normal. Breath sounds: Normal breath sounds. Abdominal: General: Abdomen is flat. Bowel sounds are normal. Palpations: Abdomen is soft. Tenderness: There is abdominal tenderness. Comments: Diffuse tenderness throughout abdomen Musculoskeletal: Right lower leg: No edema. Left lower leg: No edema. Skin: General: Skin is warm and dry. Neurological: General: No focal deficit present. Mental Status: She is alert. Psychiatric: Mood and Affect: Mood normal. Assessment & Plan Healthcare maintenance Will check lipids today. CBC & CMP were checked in September. Up to date with mammogram. No need for pap due to S/P hysterectomy. Encounter for vaccination Orders: COVID-19 VACCINE [id number] (Comirnaty) 12 yrs + Encounter for immunization Orders: FLU VACCINE TRIVALENT [id number] (Fluarix) 19 yrs + PCV-20 VACCINE 6 wks + Dietary counseling Dietary Recommendations: Fruits, vegetables, whole grains, protein foods, and fat-free or low-fat dairy products are healthychoices. Eat different types of protein foods in your diet. This can include seafood, lean meats, poultry, beans, peas, lentils, nuts, seeds, soy products, and eggs. Limit foods and beverages higher in added sugars, saturated fat, and sodium. Exercise counseling Pt has a treadmill at home. Use is somewhat limited due to stomach pain and arthralgias. Advised tostay as active as possible given those limitations. Routine Screening and Health Maintenance Optometry: Yes Dentist: Yes ASCVD risk: 59 y.o. female Lab Review: labs are reviewed, up to date and normal Routine Cancer Screening Breast CA: Cervical CA: Colon CA: Lung CA: Current Medications[4] Immunization History Administered Date(s) Administered Influenza injectable quadrivalent IIV4 with preservative 10/29/2017 Influenza injectable quadrivalent preservative free 11/28/2016, 12/27/2018, 12/29/2020, 11/17/2021,12/25/2022 Influenza, IIV3, injectable 10/21/2008, 10/16/2013 Influenza, Split (incl. purified surface antigen) 10/17/2011 MMR 09/01/2010 Moderna Covid-19 Vaccine 12+ 2020, 06/16/2020, 12/29/2020 Pfizer Covid-19 Vaccine 12+ Bivalent 12/16/2021 TD (adult), 2 Lf tetanus toxoid, preservative free, adsorbed 07/19/2021 Tdap 09/01/2010 Zoster, Recombinant 07/19/2021, 10/18/2021 No follow-ups on file. [facility] EDUCATION CONSULTANT Attestation EDUCATION CONSULTANT Resident Attestation: Patient was seen and evaluated by Selena CAZARES , in collaboration with Les Torres MD who has reviewed my assessment and plan. I, Les Torres MD , have reviewed the resident's note and agree with the assessment & plan of care as documented above. Visit Conducted in: Afghan Translation by: Provided by [employer] Phone Service ID # [id number] [1] Patient Active Problem List Diagnosis Abnormal breast exam Abnormal finding on MRI of brain Anemia Cervicalgia Depressive disorder Dizziness Eczema GERD (gastroesophageal reflux disease) Heel pain Essential hypertension History of hysterectomy Iron deficiency anemia Refractory migraine without aura Muscle tension headache Obesity Primary insomnia Syncope Sigmoid diverticulitis Other hemorrhoids Vitamin D insufficiency Clostridioides difficile diarrhea Abdominal mass Acute diverticulitis Colitis Diarrhea Encounter to discuss test results Epigastric pain Irritable bowel syndrome with diarrhea Lower abdominal pain Pelvic pain in female Renal cyst Tubular adenoma of colon [2] Past Surgical History: Procedure Laterality Date COLONOSCOPY 11/14/2023 polyps removed. Repeat 5 years HEMORRHOID SURGERY N/A HYSTERECTOMY TUBAL LIGATION [3] Allergies Allergen Reactions Bupropion Swelling and Angioedema Penicillins Rash [4] Current Outpatient Medications Medication Sig Dispense Refill A.E.R. Witch Aixa pad APPLY TOPICALLY IF NEEDED FOR IRRITATION OR HEMORRHOIDS. *NC* acetaminophen (Tylenol) 325 MG tablet 2 tablets every 4 hours ARIPiprazole (Abilify) 15 MG tablet Take 15 mg by mouth in the morning. botulinum toxin Type A, Cosm, (Botox) 100 units reconstituted solution Inject every 3 months busPIRone (Buspar) 15 MG tablet Take 1 tablet by mouth 2 times daily. cholecalciferol (Vitamin D3) 25 MCG (1000 UT) tablet TAKE 1 TABLET BY MOUTH EVERY DAY IN THE MORNING 90 tablet 1 cholestyramine light (Prevalite) 4 g packet USE 1 PACKET 2 TIMES A DAY ADMINISTER W/MEAL AVOID OTHER MEDS WITHIN 1HR BEFORE OR 4-6HR AFTER DOSE dicyclomine (Bentyl) 20 MG tablet TAKE 2 TABLETS 4 TIMES A DAY docusate sodium (Colace) 100 MG capsule TAKE 1 CAPSULE BY MOUTH TWICE A DAY Emgality 120 MG/ML prefilled syringe INJECT 120 MG SUBCUTANEOUS EVERY 28 DAYS esomeprazole (NexIUM) [address] capsule Take 1 capsule by mouth Once per day. eszopiclone (Lunesta) 2 MG tablet Take 2 mg by mouth if needed at bedtime for sleep. famotidine (Pepcid) 40 MG tablet Take 1 tablet by mouth 2 times daily. Lactobacillus-Inulin (CULTURELLE DIGESTIVE DAILY PO) Take by mouth. 1 capsule daily lisinopril 20 MG tablet TAKE 1 TABLET BY MOUTH EVERY DAY 90 tablet 1 magnesium gluconate (Magonate) 500 MG tablet Take 1 tablet by mouth Once per day. Metamucil [facility] Fiber 63 % powder MIX 1 TBSP 2 TIMES A DAY INTO AT LEAST 8 OZ OF WATER OR JUICE BEFORE DRINKING metoprolol tartrate (Lopressor) 25 MG tablet TAKE 1 TABLET BY MOUTH TWICE A DAY 180 tablet 3 nabumetone (Relafen) 750 MG tablet Take 1 tablet by mouth 2 times daily. nortriptyline (Pamelor) 50 MG capsule TAKE 2 CAPSULES BY MOUTH EVERY EVENING pantoprazole (ProtoNix) 40 MG EC tablet Take 1 tablet by mouth 1 (one) time each day. prochlorperazine (Compazine) 10 MG tablet TAKE 1 TABLET BY MOUTH TWICE A DAY NEEDED FOR NAUSEA AND VOMITING riboflavin (vitamin B2) 100 mg tablet tablet Take 4 tablets by mouth Once per day. SUMAtriptan (Imitrex) 100 MG tablet TAKE 1 AT ONSET OF MIGRAINE, MAY REPEAT IN 2 HOURS, MAXIMUM 2/DAY, 6/WEEK zolpidem CR (Ambien CR) 12.5 MG ER tablet TAKE 1 TABLET BY MOUTH EVERY DAY AT BEDTIME NEEDED traMADol (Ultram) 50 MG tablet Take 1 tablet by mouth every 8 (eight) hours if needed for pain. No current facility-administered medications for this visit. documented in this encounter Plan of Treatment Scheduled Orders Name Type Priority Associated Diagnoses Orde r Schedule Lipid Panel, Standard Lab Routine Healthcare maintenance Expected: 11/17/2024 (Approximate), Expires: 11/17/2025 documented as of this encounter Visit Diagnoses Diagnosis Healthcare maintenance- Primary Encounter for vaccination Encounter for immunization Dietary counseling Dietary surveillance and counseling Exercise counseling documented in this encounter Additional Health Concerns Assessment Noted Time PHQ-9 Depression Total Score: 9 11/18/19 25 11:31 AM EDT documented as of this encounter Care Teams Windows Mobile Developer Relationship Specialty Start Date End Date Name, MD Les [address] [place] [address] PCP - General Internal Medicine 10/09/23 documented as of this encounter
--- NOTE | ~2024-11-21 | US_ITS ---
CLINICAL HISTORY: R19.00 - Intra-abdominal and pelvic swelling, mass and lump, unspecified... US pelvis transabdominal and transvaginal Comparison: None provided Findings: Transabdominal scanning performed for overall anatomy. Transvaginal scanning performed for additional detail. Urinary bladder is jead-dj-flchcghylk distended on the transabdominal images. Uterus is surgically absent. No mass lesions are seen at the vaginal cuff. Bowel loops are seen within the pelvis adjacent to the vaginal cuff. Right ovary is only visualized on transabdominal imaging. Right ovary measures 2.0 x 1.0 x 1.9 cm in size. Right ovary is unremarkable. Left ovary is also only seen on transabdominal imaging. Left ovary measures 2.4 x 1.5 x 2.6 cm in size. Left ovary is unremarkable. No free pelvic fluid. IMPRESSION: Unremarkable pelvic ultrasound in a patient status post hysterectomy. This document has been electronically signed by: Martin Bates MD on 11/25/2024 00:18:20
--- OUTSIDE RECORDS SUMMARY | 2024-11-21 15:00 | XMS_ITS | Encounter Summary ---
Author Organization [employer] Address [address] [place] [address] [address] [place] [address] Care Team Providers Care Cloth Finishing Range Tender Name Role Phone Vidhya Padilla Primary Care Provider [phone] Name, Les GARCIA Primary Care Provider [phone] Encounter Details Date Type Department Care Team (Late st Contact Info) Description 07/20/2022 Abstract [facility] [address] [place] [address] Vidhya Padilla FNP [address] [place], [place] [phone] Social History Tobacco Use Types Packs/Day Years [...] AM EDT Recommended 3 year follow [place] Historical Provider HEALTH MAINTENANCE Edited Result - Final documented in this encounter Visit Diagnoses Not on filedocumented in this encounter Additional Health Concerns Assessment Noted Time PHQ-9 Depression Total Score: 18 023 9:14 AM EDT documented as of this encounter Care Teams Cloth Finishing Range Tender Relationship Specialty Start Date End Date Vidhya Padilla FNP [address] [place] [address] PCP - General Family Medicine 02/07/22 10/08/23 Name, MD Les [address] [place] [address] PCP - General Internal Medicine 10/09/23 documented as of this encounter
--- OUTSIDE RECORDS SUMMARY | 2024-11-21 15:00 | XMS_ITS | Clinical Summary ---
Author Organization [facility] Address [address] [place] [address] Care Team Providers Care Steamtable Worker Name Role Phone Melyssa Alonso MD [...] Zoster (Zostavax) Discontinued Procedures * Due to [place] [employer] law, this organization might not be sharing negative HIV tests. Procedure Name Priority Date/Time Associated Diagnosis Comments COMPREHENSIVE EYE EXAM 07/15/2020 from Last 3 Months or Most Recently Relevant to Health Maintenance Results * Due to [place] [employer] law, this organization might not be sharing negative HIV tests. * COMPREHENSIVE EYE EXAM (07/15/2020) Fawad VALENCIA PROCEDURE Final Result from Last 3 Months or Most Recently Relevant to Health Maintenance Insurance MEDICAID MEDICAID Care Teams Steamtable Worker Relationship Specialty Start Date End Date Melyssa Alonso MD [address] [address] PCP - General Internal Medicine 07/15/20
--- OUTSIDE RECORDS SUMMARY | 2024-11-21 15:00 | XMS_ITS | Encounter Summary ---
Author Organization [employer] Address [address] [place] [address] [address] [place] [address] Care Team Providers Care Coning Machine Operator Name Role Phone Claribel Grissom MD Primary Care Provider Vidhya Parker Primary Care Provider [phone] Les Torres MD Primary Care Provider [phone] Encounter Details Date Type Department Care Team (Late st Contact Info) Description 01/25/2022 Telephone [facility] [address] [place], [place] [phone] Claribel Grissom MD Social History Tobacco Use [...] on filedocumented in this encounter Care Teams Coning Machine Operator Relationship Specialty Start Date End Date Claribel Grissom MD PCP - General Family Medicine 12/09/18 02/06/22 Vidhya Padilla FNP [address] [place] [address] PCP - General Family Medicine 02/07/22 10/08/23 Name, MD Les [address] [place] [address] PCP - General Internal Medicine 10/09/23 documented as of this encounter
--- OUTSIDE RECORDS SUMMARY | 2024-11-21 15:00 | XMS_ITS | Encounter Summary ---
Author Organization [employer] Address [address] [place] [address] [address] [place] [address] Care Team Providers Care Spice Miller Hammer Mill Name Role Phone Vidhya Padilla Primary Care Provider [phone] Name, Les GARCIA Primary Care Provider [phone] Encounter Details Date Type Department Care Team (Late st Contact Info) Description 03/21/2022 Orders Only [facility] [address] [place] [address] Vidhya Padilla FNP [address] [place], [place] [phone] Sigmoid diverticulitis (Primary Dx) Social History Tobacco [...] hemorrhage) documented in this encounter Care Teams Spice [employer] Mill Relationship Specialty Start Date End Date Vidhya Padilla FNP [address] [place] [address] PCP - General Family Medicine 02/07/22 10/08/23 Name, MD Les [address] [place] [address] PCP - General Internal Medicine 10/09/23 documented as of this encounter
--- OUTSIDE RECORDS SUMMARY | 2024-11-21 15:00 | XMS_ITS | Encounter Summary ---
Author Organization [facility] Address [address] [place] [address] Care Team Providers Care Senior Radiation Therapist Name Role Phone Vidhya Padilla HEARING AND SPEECH ASSISTANT Primary Care Provider [phone] Reason for Visit * Reason Onset Date Comments PAC Appt Request - New 07/27/2022 Encounter Details Date Type Department Care Team ([facility] Contact Info) Description 07/27/2022 Telephone [facility] [address] [place] [phone] Telephone Intake, Staff PAC Appt Request - [...] available is February, please call patient with slurry worker to schedule appt. documented in this encounter Plan of Treatment Upcoming Encounters Date Type Department Care Team (Late st Contact Info) Description 12/05/2024 10:00 AM EDT Follow-Up [facility] A [address] [place] [address] Patsy Le MD [address] [place] [phone] 01/12/2025 9:00 AM EST Appointment [facility] Neurodiagnostics [address] [place] [phone] Giovany Machado MD [address] [place] [phone] Tong Shultz RT(R) 02/09/2025 9:00 AM EST Follow-Up [facility] Neurology [address] [place] [phone] Mary Maria MD [address] [place] [phone] documented as of this encounter Visit Diagnoses Not on filedocumented in this encounter Additional Health Concerns Infection Onset Date Last Indicated Resolved Time R/O C.diff 08/25/2022 08/25/2022 08/25/2022 3:19 PM EDT R/O C.diff 09/06/2022 09/06/2022 09/06/2022 12:3 1 PM EDT R/O C.diff 10/03/2022 10/03/2022 10/04/2022 4:31 AM EDT documented as of this encounter Care Teams Senior Radiation Therapist Relationship Specialty Start Date End Date Vidhya Padilla NP [address] [place] [address] PCP - General Family Medicine 07/27/22 documented as of this encounter
--- OUTSIDE RECORDS SUMMARY | 2024-11-21 15:00 | XMS_ITS | Clinical Summary ---
Author Organization [facility] Address [address] [place] [address] Care Team Providers Care Education Reporter Name Role Phone Vidhya Padilla NETWORKING TECHNICIAN Primary Care Provider [phone] Allergies Active Allergy Reactions Criticality Noted [...] senna 8.6 mg tablet 09/23/19 20 Active SUMAtriptan (IMITREX) 100 mg tablet TAKE [...] a day 120 tablet 07/04/19 25 Active Emgality Syringe 120 mg/mL syringeIndica tions:Intract able persistent migraine aura without cerebral infarction and without status migrainosus,D Sarbjit lyn tension headache INJECT 120 MG SUBCUTANEOUS EVERY 28 DAYS 1 mL 10/04/19 25 Active Active Problems Problem Noted Date [...] - 10/15/2024 11:59 PM EDT Hospital Encounter [facility] [address] [place] [address] Patsy Le MD Bilateral occipital neuralgia (Primary Dx) Discharge Disposition: Home or Self Care () 10/03/2024 Refill [facility] [address] [place] [address] Mary Maria MD 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; Dizziness; Muscle tension headache 09/30/2024 8:33 AM EDT - 09/30/2024 11:59 PM EDT Hospital Encounter [facility] [address] [place] [address] Giovany Machado MD Georges, Patrick 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 (Primary Dx) Discharge Disposition: Home or Self Care (01) 09/30/2024 Orders Only [facility] [address] [place] [address] Giovany Machado MD 09/30/2024 Orders Only [facility] [address] [place] [address] Patsy Le MD Bilateral occipital neuralgia (Primary [...] Info) Description 12/05/2024 10:00 AM EDT Follow-Up [facility] [address] [place] [id number] Patsy Le MD [address] [place] [address] 01/12/2025 9:00 AM EST Appointment [facility] [address] [place] [address] Giovany Machado MD [address] [place] [address] Tong Shultz RT(R) 02/09/2025 9:00 AM EST Follow-Up [facility] Neurology [address] [place] [address] Mary Maria MD [address] [place] [address] Health Maintenance Due Date Last Done Comments [...] complete this topic Procedures * Due to [place] [employer] law, this organization might not be sharing negative HIV tests. Procedure Name Priority Date/Time Associated Diagnosis Comments MD INJECT NERV BLCK,GREAT OCCIPTL Routine 10/15/2024 10:15 AM EDT Bilateral occipital neuralgia GLUCOSE, RANDOM Routine 07/18/2018 11:28 AM EDT Optic nerve swelling Migraine aura, persistent, intractable from Last 3 Months or Most Recently Relevant to Health Maintenance Results * Due to [place] [employer] law, this organization might not be sharing negative HIV tests. * MD INJECT NERV BLCK,GREAT OCCIPTL (10/15/2024 10:15 AM [...] Patient's understanding of procedure matches consent: Yes [place] Protocol: Procedure consent matches procedure scheduled: Yes [...] outpatient to the ambulatory injection suite at [facility]. Vital signs were monitored before and [...] - 99 mg/dL 07/18/2018 12:01 PM EDT [facility] Blood specimen (specimen) Structure of peripheral vein / Unknown Venipuncture / Unknown 07/18/2018 11:28 AM EDT 07/18/2018 11:35 AM EDT Mary Maria MD LAB BLOOD ORDERABLES Final Resul t [facility] [address] [place] [address], from Last 3 Months or Most Recently Relevant to Health Maintenance Insurance [facility] Care Teams Education Reporter Relationship Specialty Start Date End Date Vidhya Padilla NP [address] [place] [address] PCP - General Family Medicine 07/27/22
--- OUTSIDE RECORDS SUMMARY | 2024-11-21 15:00 | XMS_ITS | Encounter Summary ---
Author Organization [facility] Address [address] [place] [address] Care Team Providers Care An/Syq 13 Nav/C2 Operator Name Role Phone Vidhya Padilla Primary Care Provider [phone] Name, Les GARCIA Primary Care Provider [phone] Reason for Visit * Reason Onset Date Comments Referral 03/01/2022 Encounter Details Date Type Department Care Team (Late st Contact Info) Description 03/01/2022 Telephone [facility] [address], [place] [phone] Vidhya Padilla FNP [address], [place] [phone] Referral Social History Tobacco Use Types Packs/Day [...] Tc from pt [facility]. Pt states she received a call and she was advised to request a referral do to something in her Left Kidney. Cotton Weigher Operator was attempting togather details, pt was unable to provide details. 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
--- OUTSIDE RECORDS SUMMARY | 2024-11-21 15:00 | XMS_ITS | Encounter Summary ---
Author Organization [facility] Address [address] [facility] [address] [place] [address] Care Team Providers Care Director State Pharmacy Name Role Phone Name, Les GARCIA Primary Care Provider [phone] Encounter Details Date Type Department Care Team (Latest Contact Info) Description 11/17/2024 Travel Social History Tobacco Use Types Packs/Day Years [...] the past 12 months, has t he [employer], gas, oil or water company threatened to [...] AM EDT documented as of this encounter Functional Status * Over the past 2 weeks, how often have you been bothered by any of the following problems? Question Answer Date of Assessment Author Patient Health Questionnaire-2 Score 3 11/17/2024 11:31 AM EDT Gilson Falk [place] * Little interest or pleasure in doing things Answer Date of Assessment Author More than half the days 11/17/2024 11:31 AM Miladys Batres [place] * Feeling down, depressed, or hopeless Answer Date of Assessment Author Several days 11/17/2024 11:31 AM Miladys Batres [place] * Trouble falling or staying asleep, or sleeping too much Answer Date of Assessment Author Several days 11/17/2024 11:31 AM Miladys Batres [place] * Feeling tired or having little energy Answer Date of Assessment Author Several days 11/17/2024 11:31 AM Miladys Batres [place] * Poor appetite or overeating Answer [...] Author Not at all 11/17/2024 11:31 AM EDT Miladys Falk [place] * Thoughts that you would be better off or hurting yourself in some way Answer Date of Assessment Author Not at all 11/17/2024 11:31 AM W[facility] Miladys Falk [place] * Patient Health Questionnaire-9 Score Answer Date of Assessment Author 9 11/17/2024 11:31 AM [facility]NERT Miladys Falk [place] * Over the last 2 weeks, how often have you been bothered by any of the following problems? Question Answer Date of Assessment Author Feeling nervous, anxious, or on edge 2 11/17/2024 11:32 AM EDT Vinny Falk [place] Not being able to stop or control worrying 2 11/17/2024 11:32 AM Vinny Batres [place] Worrying too much about different things 1 11/17/2024 11:32 AM [place] Vinny Falk [place] Trouble relaxing 1 11/17/2024 11:32 AM [facility] Miladys Falk [place] Being so restless that it is hard to sit still 1 11/17/2024 11:32 AM Vinny Batres [place] Becoming easily annoyed or irritable 0 11/17/2024 11:32 AM Vinny Batres [place] Feeling afraid as if something awful might happen 1 11/17/2024 11:32 AM EDT Miladys Gonzalez [place] CASEY-7 Total Score 8 11/17/2024 11:32 AM WAGNERT Miladys Falk [place] documented as of this encounter Plan of Treatment Not on file documented as of this encounter Visit Diagnoses Not on filedocumented in this encounter Additional Health Concerns Assessment Noted Time PHQ-9 Depression Total Score: 9 11/18/19 11:31 AM EDT documented as of this encounter Care Teams Director State Pharmacy Relationship Specialty Start Date End Date Name, MD Les [address] [place] [address] PCP - General Internal Medicine 10/09/23 documented as of this encounter
--- OUTSIDE RECORDS SUMMARY | 2024-11-21 15:00 | XMS_ITS | Clinical Summary ---
Author Organization [employer] Address [address] [facility] [facility] [address] [place] [address] Care Team Providers Care Military Equipment Specialist Name Role Phone Name, Les GARCIA Primary Care Provider [phone] Allergies Active Allergy Reactions Criticality Noted Date [...] if needed at bedtime for sleep. 07/17/19 25 Active famotidine (Pepcid) 40 MG tablet Take 1 tablet by mouth 2 times daily. 06/10/19 25 Active magnesium gluconate (Magonate) 500 MG tablet Take 1 tablet by mouth Once per day. Active riboflavin (vitamin B2) 100 mg tablet tablet Take 4 tablets by mouth Once per day. 07/05/19 25 Active Emgality 120 MG/ML prefilled syringe INJECT 120 MG SUBCUTANEOUS EVERY 28 DAYS 08/02/19 25 Active lisinopril 20 MG tabletIndications :Primary hypertension TAKE 1 TABLET BY MOUTH EVERY DAY 90 tablet 1 09/10/19 25 Active traMADol (Ultram) 50 MG tablet Take 1 tablet by mouth every 8 (eight) hours if needed for pain. 07/11/19 25 025 Discontin ued(Thera py completed ) Active Problems Problem Noted Date Diagnosed Date [...] Encounters Date Type Department Care Team Description 11/17/2024 10:15 AM EDT Office Visit [facility] [address] [place] [address] Les Torres MD Healthcare maintenance (Primary Dx); Encounter for vaccination; Encounter for immunization; Dietary counseling; Exercise counseling 11/17/2024 Travel 11/13/2024 Orders Only GENERIC EXTERNAL DATA DEPARTMENT Provider, Generic External Data 11/10/2024 Patient Outreach [facility] [address] [place] [address] Les Torres MD Pre-visit Planning (SDOH negative, Tobacco screening negative. ) 10/02/2024 Orders Only GENERIC EXTERNAL DATA DEPARTMENT Provider, Generic External Data 09/08/2024 Refill [facility] [address] [place] [address] Les Torres MD Primary hypertension 09/05/2024 Telephone [facility] [address] [place] [address] Miladys Falk [place] jason recall 08/22/2024 1:30 PM EDT Office Visit [facility] OPTOMETRY [address] [place], [place] [phone] Brock, Lakshmi, OD Nuclear senile cataract of [...] Split (incl. arturo fied surface antigen) 10/17/2011 Influenza, seasonal, injecta ble, preservative free 11/17/2024 MMR 09/01/2010 Moderna Covid-19 Vaccine 12+ 12/29/2020 Pfizer Covid-19 Vaccine 12+ 11/17/2024 Pfizer Covid-19 Vaccine 12+ Bivalent 12/16/2021 Pneumococcal Conjugate PCV 20 11/17/2024 TD (adult), 2 Lf tetanus tox oid, [...] Mass Index 26.91 11/17/2024 10:04 AM EDT Plan of Treatment Health Maintenance Due Date Last Done Comments CT Colonography 1964 FIT DNA/Cologuard 1964 FIT 1965 FOBT 1965 HIV Screening 1965 Sigmoidoscopy 1964 Alcohol/Substance Use Screening 1976 Pap Smear 1985 HPV/Cotest 1994 Colonoscopy 05/10/2025 05/10/2022 Colorectal Cancer Screening 05/10/2025 Depression Monitoring 05/18/2025 11/17/2024, 025 SDOH Screening 11/10/2025 11/10/2024 Disability Screening 11/17/2025 11/17/2024 Tobacco Screening 11/17/2025 11/17/2024 Mammogram 03/10/2026 03/10/2024, 01/06, 01/06/2020, Additional history exists Lipid Panel 08/05/2026 08/05/2021 DTaP/Tdap/Td Vaccines (3 - Td or Tdap) 07/20/2031 07/19/2021, 09/01/2010 RSV Patients and Patients Aged 60 years or older (1 - 1-dose 75+ series) 05/20/2039 Zoster Vaccines Completed 10/18/2021, 07/19/2021 Hepatitis C Screening Completed 03/14/2023 COVID-19 Vaccine Completed 11/17/2024, 12/2021, 12/29/2020, Additional history exists Influenza Vaccine Completed 11/17/2024, , 11/17/2021, Additional history exists Pneumococcal Vaccine: 50+ Years Completed 11/17/2024 Cervical Cancer Screening Discontinued HIB Vaccines Aged Out No longer eligi [...] Procedure Name Priority Date/Time Associated Diagnosis Comments HEMATOXYLIN AND EOSIN STAIN Routine 11/13/2024 1:11 PM EDT LACTOFERRIN, QN, STOOL Routine 1:02 PM EDT CDIFF GENE PCR Routine 11/13/2024 1:02 PM EDT GASTROINTESTINAL PANEL Routine 1:02 PM EDT US RENAL COMPLETE Routine 10/09/2024 9:5 2 [...] Recently Relevant to Health Maintenance Results * Hematoxylin and Eosin Stain (11/13/2024 1:11 PM EDT) 11/13/2024 1:11 PM EDT 11/13/2024 2:52 PM EDT [facility] - 11/18/2024 8:47 AM EDT ----- ------- Name: Kacy Merritt Age/Sex: 59/F : 1965 Unit#: [id number] Attend Dr: Gosia Sheehan MD Re11/13/24 Status: [facility] Location: [facility] Disch: ----- ------- SPEC : [id number] RECD: 11/13/24-781 STATUS: DENNIS BARKER NUM: [id number] TARA: 11/13/24-[address] [facility] [address]: Gosia Sheehan MD ENTERED: 11/13/24-0365 SP TYPE: Surgical OTHR DR: Vidhya Padilla COMMUNICATIONS ATTENDANT ORDERED: HE Stain/18, Gross Micro L4/6 Diagnosis A. Colon, transverse, biopsy: Chronic inactive colitis. B. Colon, descending, polypectomy: Colonic mucosa with prominent lymphoid aggregate. C. Colon, random descending, biopsy: Chronic inactive colitis. D. Colon, sigmoid, polypectomies: Inflammatory polyps with hyperplastic changes. E. Colon, random sigmoid, biopsy: Colonic mucosa within normal limits. F. Rectum, biopsy: Rectal mucosa within normal limits. Comment: No dysplasia or granulomata are identified. Clinical History Pre-Op Dx: Diverticulosis Post-Op Dx: Diverticulosis, internal hemorrhoids, colon polyps Microscopic Description A-F. Microscopic sections reviewed. Material Received A. Transverse colon bx's B. Descending colon polyp C. Descending colon random bx's D. Sigmoid polyps E. Sigmoid random bx's F. Rectal bx's Gross Description Received in 6 parts. A. Received in formalin labeled transverse colon biopsies are 2 fragments of butts-white soft tissue measuring 0.3 and 0.3 cm in greatest dimension which are wrapped in lens paper and entirely submitted for microscopic examination, 2 pieces in cassette A. B. Received in formalin labeled descending colon polyp is a fragment of butts-white soft tissue measuring 0.3 cm in greatest dimension which is wrapped in lens paper and entirely CONTINUED ON NEXT PAGE ----- ------- Name: Kacy Merritt Age/Sex: 59/F : 1965 [id number]#: [id number] Attend Dr: Gosia Sheehan MD Re11/13/24 Status: [facility] Location: [facility] Disch: ----- ------- SPEC : [id number] RECD: 11/13/24113 STATUS: DENNIS BARKER NUM: [id number] TARA: 11/13/24-[address] [facility] [address]: Gosia Sheehan MD ENTERED: 11/13/24047 SP TYPE: Surgical OTHR DR: Vidhya Padilla NP ORDERED: HE Stain/18, Gross Micro L4/6 Gross Description (Continued) submitted for microscopic examination, 1 piece in cassette B. C. Received in formalin labeled descending colon random biopsies are 2 fragments of butts- white soft tissue measuring 0.3 and 0.3 cm in greatest dimension which are wrapped in lens paper and entirely submitted for microscopic examination, 2 pieces in cassette C. D. Received in formalin labeled sigmoid polyps are 5 fragments of pink white soft tissue measuring 0.2-0.4 cm in greatest dimension which are wrapped in lens paper and entirely submitted for microscopic examination, 5 pieces in cassette D. E. Received in formalin labeled sigmoid random biopsies are 5 fragments of pink white soft tissue measuring 0.2-0.3 cm in greatest dimension which are wrapped in lens paper and entirely submitted for microscopic examination, 5 pieces in cassette E. F. Received in formalin labeled rectal biopsies are 3 fragments of pink white soft tissue measuring 0.2-0.3 cm in greatest dimension which are wrapped in lens paper and entirely submitted for microscopic examination, 3 pieces in cassette F. ([facility]) IHC S/NG Disclaimer NOTE: Unless otherwise stated, all tissue is formalin-fixed and paraffin-embedded. Some or all of the immunohistochemical tests reported herein may have been developed and their performance characteristics determined by [facility]. They have not been cleared or approved by the U.S. Food and Drug Administration (FDA). However, the FDA has determined that such clearance or approval is not necessary. This laboratory is certified under the Clinical Laboratory Improvement Amendments of 1988 (CLIA) as qualified to perform high complexity clinical laboratory testing. Copies To: Vidhya Padilla NP [address] [address] Gosia Sheehan MD [facility] [address] [place] [phone] CONTINUED ON NEXT PAGE ----- ------- Name: Kacy Merritt Age/Sex: 59/F : 1965 Unit#: [id number] Attend Dr: Gosia Sheehan MD Re11/13/24 Status: [facility] Location: [facility] Disch: ----- ------- SPEC : [id number] RECD: 11/13/24 STATUS: MICHAELMagali LUCERO NUM: [id number] TARA: 11/13/[address] [facility] [address]: Gosia Sheehan MD ENTERED: 11/13/24469 SP TYPE: Surgical OTHR DR: Vidhya Padilla NP ORDERED: JUANIS Jarquin/Manuel Wallace Micro L4/6 ----- ------- Signed (signature on file) Randy Zaman MD 11/18/24 0847 ----- ------- END OF REPORT us Generic External Data Provider LAB BLOOD ORDERAB LES Final Result [facility] [address] [place] [address] [phone] * CDiff Gene PCR (11/13/2024 1:02 PM EDT) Only the most recent of2 resultswithin the time period is included. CDiff Gene PCR NEGATIVE Negative [facility] Comment:If C. difficile stro ngly suspected despite one negativetest, a second test may be sent vs. empiric treatment forC. difficile infection. 11/13/2024 1:02 PM EDT 11/13/2024 1:12 PM EDT us Generic External Data Provider LAB BODY FLUIDS A ND STOOLS ORDERABLES Final Result Performing Organization Address [facility] de Phone Number [facility] [address] [place] [address] [phone] * Gastrointestinal panel (11/13/2024 1:02 PM EDT) Only the most recent of2 resultswithin the time period is included. [facility] Campylobacter Not Detected Not Detect. [facility] Plesiomonas shigelloides Not Detected Not Detect. [facility] Salmonella Not Detected Not Detect. [facility] Vibrio Not Detected Not Detect. [facility] Vibrio cholerae Not Detected Not Detect. [facility] YERSINIA ENTEROCOLITICA Not Detected Not Detect. [facility] Enteroaggregative E. coli (EAEC) Not Detected Not Detect. [facility] Enteropathogenic E. coli (EPEC) Not Detected Not Detect. [facility] Enterotoxigenic E. coli (ETEC) lt/st Not Detected Not Detect. [facility] Shiga-like toxin-producing E. coli (STEC) stx1/stx2 Not Detected Not Detect. [facility] E coli O157 Not applicable Not Detect. [facility] Comment:E. coli containing t he O157 antigen are a subset ofShiga-like toxin- producing E. coli (STEC). Shigella/Enteroinvasive E. coli (EIEC) Not Detected Not Detect. [facility] Cryptosporidium Not Detected Not Detect. [facility] Cyclospora cayetanensis Not Detected Not Detect. [facility] Entamoeba histolytica Not Detected Not Detect. [facility] Giardia lamblia Not Detected Not Detect. [facility] Adenovirus F 40/41 Not Detected Not Detect. [facility] Astrovirus Not Detected Not Detect. [facility] Norovirus GI/GII Not Detected Not Detect. [facility] Rotavirus A Not Detected Not Detect. [facility] Sapovirus Not Detected Not Detect. [facility] Comment: All results must be [...] assay is performed by Multiplexed PCR, utilizing [employer]. 11/13/2024 1:02 PM EDT 11/13/2024 1:12 PM EDT us Generic External Data Provider LAB MICROBIOLOGY - GENERAL ORDERABLES Final Result [facility] [address] [place] [address] [phone] * Lactoferrin, Quantitative, Stool (11/13/2024 1:02 PM EDT) Lactoferrin, Qn, Stool <6.25 <7.25 mcg/mL [facility] Comment:The following patien t samples should be excluded from use inthe test: patients with a history of HIV and/or havehepatitis B or C, patients with a history of infectiousdiarrhea (within 6 months), and patients having had acolostomy and or ileostomy within 1 month.THIS TEST WAS PERFORMED AT:[employer] [id number] [place] [address]SVPHBSORAYA HERNANDEZ MD,PHD,KEVIN 11/13/2024 1:02 PM EDT 11/13/2024 1:12 PM EDT us Generic External Data Provider LAB BODY FLUIDS A ND STOOLS ORDERABLES Final Result Performing Organization Address City/State/[facility] Co de Phone Number [facility] [address] [place] [phone] * US Renal Complete (10/09/2024 9:52 AM EDT) Anatomical Region Laterality Modality Kidney Ultrasound 10/09/2024 9:52 AM EDT Narrative 10/09/2024 11:00 AM EDT [address] [address] Ultrasound Report Signed Patient: Kacy Merritt MR#: [id number] 9 : 1965 Acct:[id number] Age/Sex: 59 / F ADM Date: 10/09/24 Loc: HO.US Attending Dr: Maryanne RAPP Ordering Physician: Maryanne Wells Date of Service: 10/09/24 Procedure(s): US renal BI Accession Number(s): [id number] cc: Vidhya Padilla COMMUNICATIONS ATTENDANT; Maryanne Wells Reason for Exam: R31.29 - [...] Jose Vaca MD 10/09/2024 10:57 AM EDT Dictated By: Jose Lizarraga MD Signed By: <Electronically signed by Jose Villafuerte MD in OV> 10/09/24 1057 DD/ 0952 TD/TT: 10/09/24 0959 Lead Cook: Procedure Note Donotuseinterpreter, Image - 10/09/2024 [place] [address] Ultrasound Report Signed Patient: Meghan Merritt#: [id number] 9 : 1965Acct:[id number] Age/Sex: 59 / FADM Date: 10/09/24 Loc: HO.US Attending Dr: Maryanne RAPP Ordering Physician: Maryanne Wells Date of Service: 10/09/24 Procedure(s): US renal BI Accession Number(s): [id number] cc: Vidhya Padilla COMMUNICATIONS ATTENDANT; Maryanne Wells Reason for Exam: R31.29 - [...] 10/09/24 1057 DD/ 0952 TD/TT: 10/09/24 0959 Lead Cook: us [facility] External Provider IMG US PROCEDURES Final Result * (ABNORMAL) Urinalysis, Complete, with Reflex to Culture (10/02/2024 3:25 PM EDT) Color Urine Yellow [facility] Appearance Urine Clear [facility] PH 5.0 5.0 - 9.0 [facility] Glucose Urine UA Negative Negative mg/dL [facility] Urine Blood Trace(A) Negative [facility] Specific [place] - Urine 1.025 1.005 - 1.025 [facility] Urine Protein Trace Neg-Trace mg/dL [facility] Urine Ketones Trace Negative mg/dL [facility] Nitrite Urine Negative Negative [facility] Leukocyte Esterase Urine Negative Negative [facility] RBC Urine 0-2 0 - 2 /HPF [facility] Urine WBC 0-5 0 - 5 /HPF [facility] Urine Squamous Epithelial Cell 3-5 0 - 2 /HPF [facility] Urine Bacteria 1+ None Seen [facility] Hyaline Casts, Urine 3-5 0 - 2 /LPF [facility] 10/02/2024 3:25 PM EDT 10/02/2024 3:28 PM EDT Narrative [facility] - 10/02/2024 3:46 PM EDT Urine, Clean Catch us Generic External Data Provider LAB URINE ORDERAB LES Final Result Performing Organization Address City/State/[facility] Co de Phone Number [facility] [address] [place] [phone] * CT Abdomen Pelvis w/ Contrast (10/02/2024 1:40 PM EDT) Anatomical Region Laterality Modality Body, Pelvis, Abdomen Computed T omography 10/02/2024 1:40 PM EDT Narrative 10/02/2024 3:19 PM EDT [address] [address] [address] Scan Report Signed Patient: Kacy Merritt MR#: [id number] 9 : 1965 Acct:[id number] Age/Sex: 59 / F ADM Date: 10/02/24 Loc: .ED Attending Dr: Ordering Physician: Nell Reyes DO Date of Service: 10/02/24 Procedure(s): CT abdomen pelvis w IV con Accession Number(s): [id number] cc: Vidhya Padilla COMMUNICATIONS ATTENDANT; Nell Reyes DO Report Number: [id number]: Total DLP = 624.00 mGy-cm EXAMINATION: CT [...] 10/02/24 1516 DD/ 1340 TD/TT: 10/02/24 1505 Lead Cook: Procedure Note Donotuseinterpreter, Image - 10/02/[address] [address] [address] Scan Report Signed Patient: Meghan Merritt#: [id number] 9 : 1965Acct:[id number] Age/Sex: 59 / FADM Date: 10/02/24 Loc: .ED Attending Dr: Ordering Physician: Nell Reyes DO Date of Service: 10/02/24 Procedure(s): CT abdomen pelvis w IV con Accession Number(s): [id number] cc: Vidhya Padilla COMMUNICATIONS ATTENDANT; Nell Reyes DO Report Number: [id number]: Total DLP = 624.00 mGy-cm EXAMINATION: CT [...] 10/02/24 1516 DD/ 1340 TD/TT: 10/02/24 1505 Lead Cook: us [facility] External Provider IMG CT PROCEDURES Final Result * (ABNORMAL) CBC auto differential (10/02/2024 10:03 AM EDT) White Blood Count 6.7 4.8 - 10.8 X10*3/uL [facility] Red Blood Count 4.52 4.20 - 5.50 X10*6/uL [facility] Hemoglobin 12.1 12.0 - 16.0 g/dl [facility] Hematocrit 38.2 37.0 - 47.0 % [facility] Mean Corpuscular Volume 84.5 80.0 - 98.0 fL [facility] Mean Corpuscular Hemoglobin 26.8(L) 27.0 - 33.0 pg [facility] Mean Corpuscular HGB Conc 31.7 31.0 - 35.0 g/dl [facility] Red Cell Distribution Width 13.7 11.0 - 16.0 % [facility] Platelet Count 324 160 - 400 X10*3/uL [facility] Mean Platelet Volume 9.3(L) 9.4 - 12.3 fL [facility] Neutrophils Percent Auto 47.6 45 - 73 % [facility] Imm Gran Pct Auto 0.1 0.0 - 0.4 % [facility] Lymphocytes Percent Auto 42.4(H) 20 - 40 % [facility] Monocytes Percent Auto 8.0 2 - 11 % [facility] Eosinophils Percent Auto 1.3 0 - 4 % [facility] Basophils Percent Auto 0.6 0 - 2 % [facility] NRBC Pct Auto 0.0 0.0 - 0.2 /100WBC [facility] Neutrophils Absolute Auto 3.2 2.0 - 8.3 x10*3/uL [facility] Imm Gran Abs Auto 0.01 0.00 - 0.03 X10*3/uL [facility] Lymphocytes Absolute Auto 2.9 1.2 - 4.9 X10*3/uL [facility] Monocytes Absolute Auto 0.5 0.1 - 1.2 X10*3/uL [facility] Eosinophils Absolute Auto 0.1 0.0 - 0.4 X10*3/uL [facility] Basophils Absolute Auto 0.0 0.0 - 0.2 X10*3/uL [facility] NRBC Abs Auto 0.000 0.0 - 0.012 X10*3/uL [facility] 10/02/2024 10:0 3 AM EDT 10/02/2024 10:06 AM EDT Generic External Data Provider LAB BLOOD ORDERAB LES Final Result Performing Organization Address [facility] de Phone Number [facility] [address] [place] [phone] * Magnesium (10/02/2024 10:03 AM EDT) Magnesium 2.2 1.6 - 2.6 mg/dL [facility] 10/02/2024 10:0 3 AM EDT 10/02/2024 10:06 AM EDT Generic External Data Provider LAB BLOOD ORDERAB LES Final Result Performing Organization Address [facility] de Phone Number [facility] [address] [place] [phone] * Lipase (10/02/2024 10:03 AM EDT) Lipase 39 8 - 78 U/L [facility] 10/02/2024 10:0 3 AM EDT 10/02/2024 10:06 AM EDT Generic External Data Provider LAB BLOOD ORDERAB LES Final Result Performing Organization Address [facility] de Phone Number [facility] [address] [place] [phone] * Hepatic Function Panel (10/02/2024 10:03 AM EDT) Bilirubin, Total 0.3 0.0 - 1.0 mg/dL [facility] Bilirubin, Direct 0.1 0.0 - 0.5 mg/dL [facility] Aspartate Amino Transferase 22 5 - 31 U/L [facility] Alanine Aminotransferase 22 0 - 31 U/L [facility] Total Protein 7.6 6.5 - 8.0 g/dL [facility] Albumin Level 4.6 3.5 - 5.0 g/dL [facility] Alkaline Phosphatase 70 39 - 117 U/L [facility] 10/02/2024 10:0 3 AM EDT 10/02/2024 10:06 AM EDT us Generic External Data Provider LAB BLOOD ORDERAB LES Final Result [facility] [address] [place] [phone] * (ABNORMAL) Basic Metabolic Panel (10/02/2024 10:03 AM EDT) Sodium 138 135 - 145 mmol/L [facility] Potassium 4.8 3.3 - 5.1 mmol/L [facility] Chloride 105 96 - 108 mmol/L [facility] Carbon Dioxide 28 22 - 29 mmol/L [facility] Anion Gap 10(L) 12 - 20 [facility] Urea Nitrogen (BUN) 18(H) 9 - 16 mg/dL [facility] Creatinine, Serum 0.85 0.5 - 1.4 mg/dL [facility] Creatinine Clr Calc Pharmacy 69.5 [facility] Comment:Provided height and weight: 162.56 cm,74.5 kg.eGFR (calculated from the MDRD study equation) and eCrCl(calculated from the Cockcroft-Gault equation) are based ondifferent parameters and may not yield comparable results.If eCrCl result is absurd, please check patient'sheight/weight. Estimated Glomerular Filt Rate >60 [facility] Comment:Chronic Kidney Disea se: Estimated GFR < 60 mL/min/[id number] Kidney Disease: Estimated GFR < 15 mL/min/1.73m2 Glucose 99 60 - 115 mg/dL [facility] Calcium 9.4 8.4 - 10.2 mg/dL [facility] 10/02/2024 10:0 3 AM EDT 10/02/2024 10:06 AM EDT Generic External Data Provider LAB BLOOD ORDERAB LES Final Result Performing Organization Address [facility] Co de Phone Number [facility] [address] [place] [phone] * Bacterial Vaginosis (10/02/2024 8:16 AM EDT) TRICHOMONAS VAGINALIS DETECTION BY PCR NOT DETECTED Not Detect [facility] BACTERIAL VAGINOSIS DETECTION BY PCR NEGATIVE Negative [facility] Comment:The BV organism targ ets [...] DETECTION BY PCR NOT DETECTED Not Detect [facility] Heather glab krusei PCR NOT DETECTED Not Detect [facility] 10/02/2024 8:16 AM EDT 10/02/2024 2:10 PM EDT Generic External Data Provider LAB MICROBIOLOGY - GENERAL ORDERABLES Final Result Performing Organization Address [facility] Co de Phone Number [facility] [address] [place] [phone] * Culture, Urine, Routine (10/02/2024 8:16 AM EDT) Urine Urine specimen obtained by clean catch procedure / Unknown 10/02/2024 8:16 AM EDT 10/02/2024 2:10 PM EDT Comment:UACC Narrative [facility] - 10/03/2024 9:10 AM EDT Urine Culture No growth. Specimen Source: Urine clean catch us Generic External Data Provider LAB MICROBIOLOGY - GENERAL ORDERABLES Final Result [facility] [address] [place] [address] [phone] * BI Mammogram Screening Tomosynthesis Bilateral (03/10/2024 12:48 PM EST) Anatomical Region Laterality Modality Breast Bilateral Mammography 03/10/2024 12:4 8 PM EST Narrative 03/16/2024 5:47 PM EST [facility] [address] [place] [address] Mammography Report Signed Patient: Kacy Merritt MR#: [id number] 9 : 1965 Acct:[id number] Age/Sex: 58 / F ADM Date: 03/10/24 Loc: HO.MAMMO Attending Dr: Vidhya Padilla NP Ordering Physician: Vidhya Padilla NP Results: 1Negativ e Date of Service: 03/10/24 Follow Up: 1 Year From Orig ina Mammogram Procedure(s): MM tomosynthesis screening BI Accession Number(s): [id number] cc: Vidhya Padilla NP EXAMINATION: MM SCREENING [...] by Daiana Segal DO in OV> 03/16/24 174 DD/ 1248 TD/TT: 03/10/24 1308 Lead Cook: Procedure Note Donkodakter, Image - 03/16/20[facility] [address] [place] [address] Mammography Report Signed Patient: Meghan Merritt#: [id number] 9 : 1965Acct:[id number] Age/Sex: 58 / FADM Date: 03/10/24 Loc: HO.MAMMO Attending Dr: Vidhya Padilla COMMUNICATIONS ATTENDANT Ordering Physician: Vidhya Padilla NPResults: 1Negativ e Date of Service: 03/10/24Follow Up: 1 Year From Orig inal Mammogram Procedure(s): MM tomosynthesis screening BI Accession Number(s): [id number] cc: Vidhya Padilla NP EXAMINATION: MM SCREENING [...] by Daiana Segal DO in OV> 03/16/24 174 DD/ 1248 TD/TT: 03/10/24 1308 Lead Cook: Vidhyaemily Padilla INSURANCE SALES SUPERVISOR IMG BI PROCEDURES Edited Result - Final * Hepatitis Panel, General (03/14/2023 10:20 AM EST) Pathologist [facility] Hepatitis A IgM Nonreactive Nonreactive [facility] Comment:IgM antibodies to QUEZADA V not detected; does not exclude earlyacute or recovered HAV infection. ~Hepatitis B Surface Antibody NONREACTIVE Nonreactive [facility] Comment:Nonreactive: < 8.00 mIU/mL Hepatitis B Core Antibody Nonreactive Nonreactive [facility] Hepatitis C Antibody Nonreactive Nonreactive [facility] Comment:Antibodies to HCV no t detected; does not exclude early acuteHCV infection. Hepatitis B Surface Ag Negative Negative [facility] 03/14/2023 10:2 0 AM EST 03/14/2023 10:26 AM EST Generic External Data Provider LAB BLOOD ORDERAB LES Final Result [facility] [address] [place] [phone] * Colonoscopy (05/10/2022 8:39 AM EDT) Pathologist [facility] Colonoscopy Normal Normal Narrative Shanice Perez - 05/10/2022 8:39 AM EDT Recommended 3 year follow up ([facility] us Historical Provider HEALTH MAINTENANCE Edited Result - Final * (ABNORMAL) LIPID PANEL, STANDARD (08/05/2021 9:50 AM EDT) Pathologist [facility] Chol/HDLC Ratio 4.1 <5.0 (calc) [facility] factors. LDL-C is now calculated using the Gildardo calculation, which is a validated novel method providing better accuracy than the Friedewald equation in the estimation of LDL-C. Eliceo AMATO et al. ROLDAN. 2013;310(19): 8772-9523 (http://education.ReferMe.Searchles/faq/XFB616) Non-HDL Cholesterol 181(H) <130 mg/dL (calc) [facility] Comment: For patients with diabetes plus 1 major ASCVD risk factor, treating to a non-HDL-C goal of <100 mg/dL (LDL-C of <70 mg/dL) is considered a therapeutic option. Triglycerides 126 <150 mg/dL [facility] 08/05/2021 9:50 AM EDT us Claribel Grissom MD LAB BLOOD ORDERABLES Final R esult [facility] [address] from Last 3 Months or Most Recently Relevant to Health Maintenance Insurance [facility] [place] [address] [place] [address] Care Teams Military Equipment Specialist Relationship Specialty Start Date End Date Name, MD Les [address] [place] [address] PCP - General Internal Medicine 10/09/23
--- OUTSIDE RECORDS SUMMARY | 2024-11-21 15:00 | XMS_ITS | Encounter Summary ---
Author Organization [facility] Address [address] [place] [address] Care Team Providers Care Network Support Manager Name Role Phone Melyssa Alonso MD Primary Care Provider Encounter Details Date Type Department Care Team (Late st Contact Info) Description 01/10/2021 Orders Only [facility] [address] [place] [phone] Rehan Gerard, RN [address] [place] [phone] Medications Social History Tobacco Use Types Packs/Day [...] on filedocumented in this encounter Care Teams Network Support Manager Relationship Specialty Start Date End Date Melyssa Alonso MD [facility] [address] [place] [address] PCP - General Internal Medicine 07/15/20 documented as of this encounter
--- OUTSIDE RECORDS SUMMARY | 2024-11-21 15:00 | XMS_ITS | Encounter Summary ---
Author Organization [employer] Address [address] [place] [address] 7[address] [place] [address] Care Team Providers Care Microwave Supervisor Name Role Phone Vidhya Padilla Primary Care Provider [phone] Name, Les GARCIA Primary Care Provider [phone] Reason for Visit * Reason Comments Med Change Request Encounter Details Date Type Department Care Team ([facility] st Contact Info) Description 08/02/2022 Refill [facility] [address] [place] [address] Vidhya Padilla FNP [address] [place] [address] Social History Tobacco Use Types Packs/Day Years [...] Noted Time PHQ-9 Depression Total Score: 18 05/31/ 023 9:14 AM EDT documented as of this encounter Care Teams Microwave Supervisor Relationship Specialty Start Date End Date Vidhya Padilla FNP [address] [place] [address] PCP - General Family Medicine 02/07/22 10/08/23 Name, MD Les [address] [place] [address] PCP - General Internal Medicine 10/09/23 documented as of this encounter
--- OUTSIDE RECORDS SUMMARY | 2024-11-21 15:00 | XMS_ITS | Encounter Summary ---
Author Organization [facility] Address [address] [place] [address] Care Team Providers Care Women'S Apparel Salesperson Name Role Phone Vidhya Padilla LICENSED SALES ASSISTANT Primary Care Provider [phone] Encounter Details Date Type Department Care Team (Late Contact Info) Description 11/08/2020 Orders Only [facility] [address] [place] [address] Santy Madison MD [address] [place], [place] [phone] Social History Tobacco Use Types Packs/Day Years [...] Info) Description 12/05/2024 10:00 AM EDT Follow-Up [facility] A [address] [place] [address] Patsy Le MD [address] [place] [address] 01/12/2025 9:00 AM EST Appointment [facility] Neurodiagnostics [address] [place] [address] Giovany Machado MD [address] [place] [address] Tong Shultz RT(R) 02/09/2025 9:00 AM EST Follow-Up [facility] Neurology [address] [place] [address] Mary Maria MD [address] [place] [address] documented as of this encounter Visit Diagnoses Not on filedocumented in this encounter Additional Health Concerns Infection Onset Date Last Indicated Resolved Time R/O C.diff 08/25/2022 08/25/2022 08/25/2022 3:19 PM EDT R/O C.diff 09/06/2022 09/06/2022 09/06/2022 12:3 1 PM EDT R/O C.diff 10/03/2022 10/03/2022 10/04/2022 4:31 AM EDT documented as of this encounter Care Teams Women'S Apparel Salesperson Relationship Specialty Start Date End Date Vidhya Padilla NP [address] [place] [address] PCP - General Family Medicine 07/27/22 documented as of this encounter
== END 2024-11-21 12:37 | disposition home or self-care (01) ==
LOC: HO.US 12:36
PROVIDERS: PCP Nurse Practitioner Family; Visit Provider Advanced Practice Midwife
DX: R19.00 Intra-abdominal and pelvic swelling, mass and lump, unspecified site (principal)
CPT/HCPCS: 76830; 76856

== ENCOUNTER → 2024-11-21 12:38 | Outpatient (BNV) | payer MEDICAID, SELFPAY | PROVIDERS: PCP Nurse Practitioner Family; Visit Provider Radiology Diagnostic Radiology | DX: R10.32 Left lower quadrant pain (principal); Z90.710 Acquired absence of both cervix and uterus | CPT/HCPCS: 76830; 76856 ==

== ENCOUNTER 2024-11-27 15:05 | Outpatient (REF) | payer MEDICAID, SELFPAY ==
--- NOTE | ~2024-11-27 | US_ITS ---
EXAMINATION: US PELVIS LIMITED (BLADDER) CLINICAL INFORMATION: Microscopic hematuria.. COMPARISON: Renal US 10/09/2024. TECHNIQUE: Real-time imaging of the bladder. FINDINGS: BLADDER: Well distended and normal. Bilateral ureteral jets are demonstrated. Prevoid bladder volume is 151 mL. Postvoid bladder volume is 6 mL. US/US bladder IMPRESSION: Normal ultrasound of the urinary bladder. Electronically signed by: Frandy Garcia MD 11/27/2024 04:54 PM EDT
--- OUTSIDE RECORDS SUMMARY | 2024-11-27 18:59 | XMS_ITS | Encounter Summary ---
Author Organization [employer] Address [address] [place] [address] 7t [place] [address] Care Team Providers Care Advertising Operations Manager Name Role Phone Vidhya Padilla Primary Care Provider [phone] Name, Les GARCIA Primary Care Provider [phone] Encounter Details Date Type Department Care Team (Late st Contact Info) Description 03/21/2022 Orders Only [facility] [address] [place] [address] Vidhya Padilla FNP [address] [place], [place] [phone] Sigmoid diverticulitis (Primary Dx) Social History Tobacco [...] hemorrhage) documented in this encounter Care Teams Advertising Operations Manager Relationship Specialty Start Date End Date Vidhya Padilla FNP [address] [place] [address] PCP - General Family Medicine 02/07/22 10/08/23 Name, MD Les [address] [place] [address] PCP - General Internal Medicine 10/09/23 documented as of this encounter
--- OUTSIDE RECORDS SUMMARY | 2024-11-27 18:59 | XMS_ITS | Encounter Summary ---
Author Organization [employer] Address [address] [place] [address] 7[address] [place] [address] Care Team Providers Care Chart Changer Name Role Phone Claribel Grissom MD Primary Care Provider Vidhya Parker Primary Care Provider [phone] Les Torres MD Primary Care Provider [phone] Encounter Details Date Type Department Care Team (Late st Contact Info) Description 01/25/2022 Telephone [facility] [address] [place], [place] [phone] Claribel Grissom MD Social History Tobacco Use [...] on filedocumented in this encounter Care Teams Chart Changer Relationship Specialty Start Date End Date Claribel Grissom MD PCP - General Family Medicine 12/09/18 02/06/22 Vidhya Padilla FNP [address] [place] [address] PCP - General Family Medicine 02/07/22 10/08/23 Name, MD Les [address] [place] [address] PCP - General Internal Medicine 10/09/23 documented as of this encounter
--- OUTSIDE RECORDS SUMMARY | 2024-11-27 18:59 | XMS_ITS | Encounter Summary ---
Author Organization [facility] Address [address] [place] [address] Care Team Providers Care Windows Server Engineer Name Role Phone Vidhya Padilla PLANT ASSIGNER Primary Care Provider Reason for Visit * Reason Onset Date Comments PAC Appt Request - New 07/27/2022 Encounter Details Date Type Department Care Team ([facility] Contact Info) Description 07/27/2022 Telephone [facility] [address] [place] [address] Telephone Intake, Staff PAC Appt Request - [...] available is February, please call patient with staff interpreter to schedule appt. documented in this encounter Plan of Treatment Upcoming Encounters Date Type Department Care Team (Late st Contact Info) Description 12/05/2024 10:00 AM EDT Follow-Up [facility] A [address] [place] [address] Patsy Le MD [address] [place] [address] 01/12/2025 9:00 AM EST Appointment [facility] Neurodiagnostics [address] [place] [address] Giovany Machado MD [address] [place] [address] Tong Shultz RT(R) 02/09/2025 9:00 AM EST Follow-Up [facility] Neurology [address] [place] [address] Mary Maria MD [address] [place] [address] documented as of this encounter Visit Diagnoses Not on filedocumented in this encounter Additional Health Concerns Infection Onset Date Last Indicated Resolved Time R/O C.diff 08/25/2022 08/25/2022 08/25/2022 3:19 PM EDT R/O C.diff 09/06/2022 09/06/2022 09/06/2022 12:3 1 PM EDT R/O C.diff 10/03/2022 10/03/2022 10/04/2022 4:31 AM EDT documented as of this encounter Care Teams Windows Server Engineer Relationship Specialty Start Date End Date Vidhya Padilla NP [address] [place] [address] PCP - General Family Medicine 07/27/22 documented as of this encounter
--- OUTSIDE RECORDS SUMMARY | 2024-11-27 18:59 | XMS_ITS | Clinical Summary ---
Author Organization [facility] Address [address] [place] [address] Care Team Providers Care Fiberglass Laminator Name Role Phone Melyssa Alonso MD Primary [...] Zoster (Zostavax) Discontinued Procedures * Due to [place] [employer] law, this organization might not be sharing negative HIV tests. Procedure Name Priority Date/Time Associated Diagnosis Comments COMPREHENSIVE EYE EXAM 07/15/2020 from Last 3 Months or Most Recently Relevant to Health Maintenance Results * Due to [place] [employer] law, this organization might not be sharing negative HIV tests. * COMPREHENSIVE EYE EXAM (07/15/2020) [facility] VALENCIA PROCEDURE Final Result from Last 3 Months or Most Recently Relevant to Health Maintenance Insurance MEDICAID MEDICAID Care Teams Fiberglass Laminator Relationship Specialty Start Date End Date Melyssa Alonso MD [address] [address] PCP - General Internal Medicine 07/15/20
--- OUTSIDE RECORDS SUMMARY | 2024-11-27 18:59 | XMS_ITS | Encounter Summary ---
Author Organization [employer] Address [address] [facility] 7t [place] [address] Care Team Providers Care Silk Screen Printer Helper Name Role Phone Vidhya Padilla Primary Care Provider [phone] Name, Les GARCIA Primary Care Provider [phone] Reason for Visit * Reason Onset Date Comments Referral 03/01/2022 Encounter Details Date Type Department Care Team (Late st Contact Info) Description 03/01/2022 Telephone [facility] [address] [place], [place] [phone] Vidhya Padilla FNP [address] [place], [place] [phone] Referral Social History Tobacco Use Types Packs/Day [...] 03/01/2022 2:52 PM EST Telephone call to [facility] urology in regards to pt's referral. Pt needs referral for cyst in kidney andabdominal pain per [facility]. N28.1 and R10.9 respectively. * Telephone Encounter - Nolan Carlisle - 03/01/2022 9:03 AM EST Tc from pt [facility] Pt states she received a call and she was advised to request a referral do to something in her Left Kidney. Professor Of Business was attempting togather details, pt was unable to provide details. 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
--- OUTSIDE RECORDS SUMMARY | 2024-11-27 18:59 | XMS_ITS | Encounter Summary ---
Author Organization [employer] Address [address] [place] [address] 7[address] [place] [address] Care Team Providers Care Gum Scoring Machine Operator Name Role Phone Vidhya Padilla Primary Care Provider [phone] Name, Les GARCIA Primary Care Provider [phone] Reason for Visit * Reason Comments Med Change Request Encounter Details Date Type Department Care Team ([facility] st Contact Info) Description 08/02/2022 Refill [facility] [address] [place] [address] Vidhya Padilla FNP [address] [place] [address] Social History Tobacco Use Types Packs/Day Years [...] documented as of this encounter Care Teams Gum Scoring Machine Operator Relationship Specialty Start Date End Date Vidhya Padilla FNP [address] [place] [address] PCP - General Family Medicine 02/07/22 10/08/23 Name, MD Les [address] [place] [address] PCP - General Internal Medicine 10/09/23 documented as of this encounter
--- OUTSIDE RECORDS SUMMARY | 2024-11-27 18:59 | XMS_ITS | Clinical Summary ---
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; Dizziness; Muscle tension headache 09/30/2024 8:33 AM EDT - 09/30/2024 11:59 PM EDT Hospital Encounter [facility] Neurodiagnostics [address] [place] [address] Giovany Machado MD Georges, Patrick 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 (Primary Dx) Discharge Disposition: Home or Self Care (01) 09/30/2024 Orders Only [facility] [address] [place] [address] Giovany Machado MD 09/30/2024 Orders Only [facility] B [address] [place] [address] Patsy Le MD Bilateral occipital neuralgia (Primary [...] Info) Description 12/05/2024 10:00 AM EDT Follow-Up [facility] A [address] [place] [address] Patsy Le MD [address] [place] [address] 01/12/2025 9:00 AM EST Appointment [facility] Neurodiagnostics [address] [place] [address] Giovany Machado MD [address] [place] [address] Tong Shultz RT(R) 02/09/2025 9:00 AM EST Follow-Up [facility]rology [address] [place] [address] Mary Maria MD [address] [place] [address] Health Maintenance Due Date Last Done Comments [...] complete this topic Procedures * Due to [place] [employer] law, this organization might not be sharing negative HIV tests. Procedure Name Priority Date/Time Associated Diagnosis Comments ND INJECT NERV BLCK,GREAT OCCIPTL Routine 10/15/2024 10:15 AM EDT Bilateral occipital neuralgia GLUCOSE, RANDOM Routine 07/18/2018 11:28 AM EDT Optic nerve swelling Migraine aura, persistent, intractable from Last 3 Months or Most Recently Relevant to Health Maintenance Results * Due to [place] [employer] law, this organization might not be sharing negative HIV tests. * ND INJECT NERV BLCK,GREAT OCCIPTL (10/15/2024 10:15 AM [...] Patient's understanding of procedure matches consent: Yes [place] Protocol: Procedure consent matches procedure scheduled: Yes [...] outpatient to the ambulatory injection [facility] at [facility]. Vital signs were monitored before and [...] - 99 mg/dL 07/18/2018 12:01 PM EDT [facility] Blood specimen (specimen) Structure of peripheral vein / Unknown Venipuncture / Unknown 07/18/2018 11:28 AM EDT 07/18/2018 11:35 AM EDT Mary Maria MD LAB BLOOD ORDERABLES Final Resul t [facility] [address] [place] [address], from Last 3 Months or Most Recently Relevant to Health Maintenance Insurance [facility] Care Teams School Janitor Relationship Specialty Start Date End Date Vidhya Padilla NP [address] [place] [address] PCP - General Family Medicine 07/27/22
--- OUTSIDE RECORDS SUMMARY | 2024-11-27 18:59 | XMS_ITS | Clinical Summary ---
Author Organization [employer] Address [address] [facility] [address] [place] [address] Care Team Providers Care Receivable Manager Name Role Phone Name, Les GARCIA Primary Care Provider [phone] Allergies Active Allergy Reactions Criticality Noted Date [...] Description 11/17/2024 10:15 AM EDT Office Visit [facility] [address] [place] [address] [phone] Les Torres MD Healthcare maintenance (Primary Dx); Encounter for vaccination; Encounter for immunization; Dietary counseling; Exercise counseling 11/17/2024 Travel 11/13/2024 Orders Only GENERIC EXTERNAL DATA DEPARTMENT Provider, Generic External Data 11/10/2024 Patient Outreach [facility] [address] [place] [address] Les Torres MD Pre-visit Planning (SDOH negative, Tobacco screening negative. ) 10/02/2024 Orders Only GENERIC EXTERNAL DATA DEPARTMENT Provider, Generic External Data 09/08/2024 Refill [facility] [address] [place] [address] Les Torres MD Primary hypertension 09/05/2024 Telephone [facility] [address] [place] [phone] Miladys Falk [place] october recall from Last 3 Months Immunizations Immunization Administration [...] Name Priority Date/Time Associated Diagnosis Comments US BLADDER Routine 11/27/2024 4:01 PM EDT US PELVIS TRANSVAGINAL Routine 12:18 AM EDT HEMATOXYLIN AND EOSIN STAIN Routine 11/13/2024 1:11 [...] Relevant to Health Maintenance Results * US BLADDER (11/27/2024 4:01 PM EDT) Anatomical Region Laterality Modality Abdomen Ultrasound 11/27/2024 4:01 PM EDT Narrative 11/27/2024 4:57 PM EDT [address] [address] Ultrasound Report Signed Patient: Kacy Merritt MR#: [id number] 9 : 1965 Acct:[id number] Age/Sex: 59 / F ADM Date: 11/27/24 Loc: HO.US Attending Dr: Maryanne RAPP Ordering Physician: Maryanne Wells Date of Service: 11/27/24 Procedure(s): US bladder Accession Number(s): [id number] cc: Maryanne Wells; Name,Les GARCIA Reason for Exam: Microscopic hematuria *Renal cyst EXAMINATION: US PELVIS LIMITED (BLADDER) CLINICAL INFORMATION: Microscopic hematuria.. COMPARISON: Renal US 10/09/2024. TECHNIQUE: Real-time imaging of the bladder. FINDINGS: BLADDER: Well distended and normal. Bilateral ureteral jets are demonstrated. Prevoid bladder volume is 151 mL. Postvoid bladder volume is 6 mL. US/US bladder IMPRESSION: Normal ultrasound of the urinary bladder. Electronically signed by: Frandy Garcia MD 11/27/2024 04:54 PM EDT Dictated By: Frandy Garcia MD Signed By: <Electronically signed by Frandy Garcia MD in OV> 11/27/24 1654 DD/ 1601 TD/TT: 11/27/24 1608 Sailboat Captain: Procedure Note Donotuseinterpreter, Image - 11/27/[address] [address] Ultrasound Report Signed Patient: Lashon MerrittR#: [id number] 9 : 1965Acct:[id number] Age/Sex: 59 / FADM Date: 11/27/24 Loc: HO.US Attending Dr: Maryanne RAPP Ordering Physician: Maryanne Wells Date of Service: 11/27/24 Procedure(s): US bladder Accession Number(s): [id number] cc: Maryanne WellsP-; Name,Les GARCIA Reason for Exam: Microscopic hematuria *Renal cyst EXAMINATION: US PELVIS LIMITED (BLADDER) CLINICAL INFORMATION: Microscopic hematuria.. COMPARISON: Renal US 10/09/2024. TECHNIQUE: Real-time imaging of the bladder. FINDINGS: BLADDER: Well distended and normal. Bilateral ureteral jets are demonstrated. Prevoid bladder volume is 151 mL. Postvoid bladder volume is 6 mL. US/US bladder IMPRESSION: Normal ultrasound of the urinary bladder. Electronically signed by: Frandy Garcia MD 11/27/2024 04:54 PM EDT RP Workstation: [id number] Dictated By: Frandy Garcia MD Signed By: <Electronically signed by Frandy Garcia MD in OV> 11/27/24 1654 DD/ 1601 TD/TT: 11/27/24 1608 Sailboat Captain: us [facility] External Provider IMG US PROCEDURES Edited Result - Final * US Pelvis Transvaginal (11/25/2024 12:18 AM EDT) Anatomical Region Laterality Modality Pelvis Ultrasound 11/25/2024 12:1 8 AM EDT Narrative 11/25/2024 12:21 AM EDT [place] [address] Ultrasound Report Signed Patient: Kacy Merritt MR#: [id number] 9 : 1965 Acct:[id number] Age/Sex: 59 / F ADM Date: 11/21/24 Loc: HO.US Attending Dr: Genny White CNM Ordering Physician: Genny White CNM Date of Service: 11/21/24 Procedure(s): US pelvic and transvaginal Accession Number(s): [id number] cc: Vidhya Padilla PHARMACY CUSTOMER CARE SPECIALIST; Genny White CNM Reason for Exam: R19.00 - Intra-abdominal and pelvic swelling, mass and lump, unspecified... CLINICAL HISTORY: R19.00 - Intra-abdominal and pelvic swelling, mass and lump, unspecified... US pelvis transabdominal and transvaginal Comparison: None provided Findings: Transabdominal scanning performed for overall anatomy. Transvaginal scanning performed for additional detail. Urinary bladder is wshm-dl-zesugpggnw distended on the transabdominal images. Uterus is surgically absent. No mass lesions are seen at the vaginal cuff. Bowel loops are seen within the pelvis adjacent to the vaginal cuff. Right ovary is only visualized on transabdominal imaging. Right ovary measures 2.0 x 1.0 x 1.9 cm in size. Right ovary is unremarkable. Left ovary is also only seen on transabdominal imaging. Left ovary measures 2.4 x 1.5 x 2.6 cm in size. Left ovary is unremarkable. No free pelvic fluid. IMPRESSION: Unremarkable pelvic ultrasound in a patient status post hysterectomy. This document has been electronically signed by: Martin Bates MD on 11/25/2024 00:18:20 Dictated By: Martin Bates MD Signed By: <Electronically signed by Martin Bates MD in OV> 11/25/2418 DD/ TD/TT: 11/25/2417 Sailboat Captain: Procedure Note Donotuseinterpreter, Image - 11/25/2024 [place] [address] Ultrasound Report Signed Patient: Meghan Merritt#: [id number] 9 : 1965Acct:[id number] Age/Sex: 59 / FADM Date: 11/21/24 Loc: HO.US Attending Dr: Genny White CNM Ordering Physician: Gneny White CNM Date of Service: 11/21/24 Procedure(s): US pelvic and transvaginal Accession Number(s): [id number] cc: Vidhya Pdailla PHARMACY CUSTOMER CARE SPECIALIST; Genny White CNM Reason for Exam: R19.00 - Intra-abdominal and pelvic swelling, mass andlump, unspecified... CLINICAL HISTORY: R19.00 - Intra-abdominal and pelvic swelling, mass andlump, unspecified... US pelvis transabdominal and transvaginal Comparison: None provided Findings: Transabdominal scanning performed for overall anatomy. Transvaginal scanning performed for additional detail. Urinary bladder is rylk-sg-cchetpkgvy distended on the transabdominal images. Uterus is surgically absent. No mass lesions are seen at the vaginal cuff. Bowel loops are seen within the pelvis adjacent to the vaginal cuff. Right ovary is only visualized on transabdominal imaging. Right ovary measures 2.0 x 1.0 x 1.9 cm in size. Right ovary is unremarkable. Left ovary is also only seen on transabdominal imaging. Left ovary measures 2.4 x 1.5 x 2.6 cm in size. Left ovary is unremarkable. No free pelvic fluid. IMPRESSION: Unremarkable pelvic ultrasound in a patient status post hysterectomy. This document has been electronically signed by: Martin Bates MD on 11/25/2024 00:18:20 Dictated By: Martin Bates MD Signed By: <Electronically signed by Martin Bates MD in OV> 11/25/24 0019 DD/ 0018 TD/TT: 11/25/24 001 Sailboat Captain: us [facility] External Provider IMG US PROCEDURES Edited Result - Final * Hematoxylin and Eosin Stain (11/13/2024 1:11 PM EDT) 11/13/2024 1:11 PM EDT 11/13/2024 2:52 PM EDT [facility]S - 11/18/2024 8:47 AM EDT ----- ------- Name: Kacy Merritt Age/Sex: 59/F : 1965 Unit#: [id number] Attend Dr: Gosia Sheehan MD Re11/13/24 Status: [facility] Location: [facility] Disch: ----- ------- SPEC : [id number] RECD: 11/13/24 STATUS: DENNIS BARKER NUM: [id number] TARA: 11/13/24 [facility] [address]: Gosia Sheeahn MD ENTERED: 11/13/24 SP TYPE: Surgical OTHR DR: Vidhya Padilla PHARMACY CUSTOMER CARE SPECIALIST ORDERED: HE Stain/18, Gross Micro L4/6 Diagnosis [...] Name: Kacy Merritt Age/Sex: 59/F : 1965 [id number]#: [id number] Attend Dr: Gosia Sheehan MD Re11/13/24 Status: [facility] Location: [facility] Disch: ----- ------- SPEC : [id number] RECD: 11/13/24849 STATUS: DENNIS BARKER NUM: [id number] TARA: 11/13/24-1310 [facility] [address]: Gosia Sheehan MD ENTERED: 11/13/249711 SP TYPE: Surgical OTHR DR: Vidhya Padilla PHARMACY CUSTOMER CARE SPECIALIST ORDERED: HE Stain/18, Gross Micro L4/6 Gross [...] microscopic examination, 3 pieces in cassette F. ([facility]) IHC S/NG Disclaimer NOTE: Unless otherwise stated, all tissue is formalin-fixed and paraffin-embedded. Some or all of the immunohistochemical tests reported herein may have been developed and their performance characteristics determined by [facility]. They have not been cleared or approved by the U.S. Food and Drug Administration (FDA). However, the FDA has determined that such clearance or approval is not necessary. This laboratory is certified under the Clinical Laboratory Improvement Amendments of 1988 (CLIA) as qualified to perform high complexity clinical laboratory testing. Copies To: Vidhya Padilla NP [address] [id number] Gosia Sheehan MD [facility] [address] [place] [id number] CONTINUED ON NEXT PAGE ----- ------- Name: Kacy Merritt Age/Sex: 59/F : 1965 Unit#: [id number] Attend Dr: Gosia Sheehan MD Re11/13/24 Status: [facility] Location: [facility] Disch: ----- ------- SPEC : [id number] RECD: 11/13/24831 STATUS: DENNSI BARKER NUM: [id number] TARA: 11/13/24-131 [facility] [address]: Gosia Sheehan MD ENTERED: 11/13/249059 SP TYPE: Surgical OTHR DR: Vidhya Padilla NP ORDERED: HE Stain/18, Manuel Adamson L4/6 ----- ------- Signed (signature on file) Randy Zaman MD 11/18/24 0847 ----- ------- END OF REPORT Generic External Data Provider LAB BLOOD ORDERAB LES Final Result Performing Organization Address [facility] de Phone Number [facility] [address] [place] [address] [phone] * CDiff Gene PCR (11/13/2024 1:02 PM EDT) Only the most recent of2 resultswithin the time period is included. CDiff Gene PCR NEGATIVE Negative [facility] Comment:If C. difficile stro ngly suspected despite one negativetest, a second test may be sent vs. empiric treatment forC. difficile infection. 11/13/2024 1:02 PM EDT 11/13/2024 1:12 PM EDT [facility] External Data Provider LAB BODY FLUIDS A ND STOOLS ORDERABLES Final Result Performing Organization Address [facility] Co de Phone Number [facility] [address] [place] [address] [phone] * Gastrointestinal panel (11/13/2024 1:02 PM EDT) Only the most recent of2 resultswithin the time period is included. Campylobacter Not Detected Not Detect. [facility] Plesiomonas shigelloides Not Detected Not Detect. [facility] Salmonella Not Detected Not Detect. [facility] Vibrio Not Detected Not Detect. [facility] Vibrio cholerae Not Detected Not Detect. [facility] YERSINIA ENTEROCOLITICA Not Detected Not Detect. [facility] Enteroaggregative E. coli (EAEC) Not Detected Not Detect. [facility] Enteropathogenic E. coli (EPEC) Not Detected Not Detect. [facility] Enterotoxigenic E. coli (ETEC) lt/st Not Detected Not Detect. [facility] Shiga-like toxin-producing E. coli (STEC) stx1/stx2 Not Detected Not Detect. [facility] E coli O157 Not applicable Not Detect. [facility] Comment:E. coli containing t he O157 antigen are a subset ofShiga-like toxin- producing E. coli (STEC). Shigella/Enteroinvasive E. coli (EIEC) Not Detected Not Detect. [facility] Cryptosporidium Not Detected Not Detect. [facility] Cyclospora cayetanensis Not Detected Not Detect. [facility] Entamoeba histolytica Not Detected Not Detect. [facility] Giardia lamblia Not Detected Not Detect. [facility] Adenovirus F 40/41 Not Detected Not Detect. [facility] Astrovirus Not Detected Not Detect. [facility] Norovirus GI/GII Not Detected Not Detect. [facility] Rotavirus A Not Detected Not Detect. [facility] Sapovirus Not Detected Not Detect. [facility] Comment: All results must be [...] assay is performed by Multiplexed PCR, utilizing [employer]. 11/13/2024 1:02 PM EDT 11/13/2024 1:12 PM EDT Generic External Data Provider LAB MICROBIOLOGY - GENERAL ORDERABLES Final Result Performing Organization Address [facility] de Phone Number [facility] [address] [place] [phone] * Lactoferrin, Quantitative, Stool (11/13/2024 1:02 PM EDT) Lactoferrin, Qn, Stool <6.25 <7.25 mcg/mL [facility] Comment:The following patien t samples should be excluded from use inthe test: patients with a history of HIV and/or havehepatitis B or C, patients with a history of infectiousdiarrhea (within 6 months), and patients having had acolostomy and or ileostomy within 1 month.THIS TEST WAS PERFORMED AT:[employer] [id number] [place] [id number] HERNANDEZ MD,PHD,KEVIN 11/13/2024 1:02 PM EDT 11/13/2024 1:12 PM EDT [facility] External Data Provider LAB BODY FLUIDS A ND STOOLS ORDERABLES Final Result Performing Organization Address [facility]/State/ZIP Co de Phone Number [facility] [address] [place] [phone] * US Renal Complete (10/09/2024 9:52 AM EDT) Anatomical Region Laterality Modality Kidney Ultrasound 10/09/2024 9:52 AM EDT Narrative 10/09/2024 11:00 AM EDT [address] [address] Ultrasound Report Signed Patient: Kacy Merritt MR#: [id number] 9 : 1965 Acct:[id number] Age/Sex: 59 / F ADM Date: 10/09/24 Loc: HO.US Attending Dr: Maryanne RAPP Ordering Physician: Maryanne Wells Date of Service: 10/09/24 Procedure(s): US renal BI Accession Number(s): [id number] cc: Vidhya Padilla PHARMACY CUSTOMER CARE SPECIALIST; Maryanne Wells Reason for Exam: R31.29 - [...] 10/09/24 1057 DD/ 0952 TD/TT: 10/09/24 0959 Sailboat Captain: Procedure Note Donotuseinterpreter, Image - 10/09/2024 [place] [address] Ultrasound Report Signed Patient: Meghan Merritt#: [id number] 9 : 1965Acct:[id number] Age/Sex: 59 / FADM Date: 10/09/24 Loc: HO.US Attending Dr: Maryanne RAPP Ordering Physician: Maryanne Wells Date of Service: 10/09/24 Procedure(s): US renal BI Accession Number(s): [id number] cc: Vidhya Padilla PHARMACY CUSTOMER CARE SPECIALIST; Maryanne Wells Reason for Exam: R31.29 - [...] 10/09/24 1057 DD/ 0952 TD/TT: 10/09/24 0959 Sailboat Captain: us [facility] External Provider IMG US PROCEDURES Final Result * (ABNORMAL) Urinalysis, Complete, with Reflex to Culture (10/02/2024 3:25 PM EDT) Color Urine Yellow [facility] Appearance Urine Clear [facility] PH 5.0 5.0 - 9.0 [facility] Glucose Urine UA Negative Negative mg/dL [facility] Urine Blood Trace(A) Negative [facility] Specific [facility] - Urine 1.025 1.005 - 1.025 [facility] Urine Protein Trace Neg-Trace mg/dL [facility] Urine Ketones Trace Negative mg/dL [facility] Nitrite Urine Negative Negative [facility] Leukocyte Esterase Urine Negative Negative [facility] RBC Urine 0-2 0 - 2 /HPF [facility] Urine WBC 0-5 0 - 5 /HPF [facility] Urine Squamous Epithelial Cell 3-5 0 - 2 /HPF [facility] Urine Bacteria 1+ None Seen [facility] Hyaline Casts, Urine 3-5 0 - 2 /LPF [facility] 10/02/2024 3:25 PM EDT 10/02/2024 3:28 PM EDT Narrative [facility] - 10/02/2024 3:46 PM EDT Urine, Clean Catch Generic External Data Provider LAB URINE ORDERAB LES Final Result [facility] [address] [place] [phone] * CT Abdomen Pelvis w/ Contrast (10/02/2024 1:40 PM EDT) Anatomical Region Laterality Modality Body, Pelvis, Abdomen Computed T omography 10/02/2024 1:40 PM EDT Narrative 10/02/2024 3:19 PM EDT [address] [address] [address] Scan Report Signed Patient: Kacy Merritt MR#: [id number] 9 : 1965 Acct:[id number] Age/Sex: 59 / F ADM Date: 10/02/24 Loc: HO.ED Attending Dr: Ordering Physician: Nell Reyes DO Date of Service: 10/02/24 Procedure(s): CT abdomen pelvis w IV con Accession Number(s): [id number] cc: Vidhya Padilla PHARMACY CUSTOMER CARE SPECIALIST; Nell Reyes DO Report Number: [id number]: Total DLP = 624.00 mGy-cm EXAMINATION: CT [...] 10/02/24 1516 DD/ 1340 TD/TT: 10/02/24 1505 Sailboat Captain: Procedure Note Donotuseinterpreter, Image - 10/02/[address] [address] [address] Scan Report Signed Patient: Meghan Merritt#: [id number] 9 : 1965Acct:[id number] Age/Sex: 59 / FADM Date: 10/02/24 Loc: HO.ED Attending Dr: Ordering Physician: Nell Reyes DO Date of Service: 10/02/24 Procedure(s): CT abdomen pelvis w IV con Accession Number(s): [id number] cc: Vidhya Padilla PHARMACY CUSTOMER CARE SPECIALIST; Nell Reyes DO Report Number: [id number]: Total DLP = 624.00 mGy-cm EXAMINATION: CT [...] 10/02/24 1516 DD/ 1340 TD/TT: 10/02/24 1505 Sailboat Captain: [facility] External Provider IMG CT PROCEDURES Final Result * (ABNORMAL) CBC auto differential (10/02/2024 10:03 AM EDT) White Blood Count 6.7 4.8 - 10.8 X10*3/uL [facility] Red Blood Count 4.52 4.20 - 5.50 X10*6/uL [facility] Hemoglobin 12.1 12.0 - 16.0 g/dl [facility] Hematocrit 38.2 37.0 - 47.0 % [facility] Mean Corpuscular Volume 84.5 80.0 - 98.0 fL [facility] Mean Corpuscular Hemoglobin 26.8(L) 27.0 - 33.0 pg [facility] Mean Corpuscular HGB Conc 31.7 31.0 - 35.0 g/dl [facility] Red Cell Distribution Width 13.7 11.0 - 16.0 % [facility] Platelet Count 324 160 - 400 X10*3/uL [facility] Mean Platelet Volume 9.3(L) 9.4 - 12.3 fL [facility] Neutrophils Percent Auto 47.6 45 - 73 % [facility] Imm Gran Pct Auto 0.1 0.0 - 0.4 % [facility] Lymphocytes Percent Auto 42.4(H) 20 - 40 % [facility] Monocytes Percent Auto 8.0 2 - 11 % [facility] Eosinophils Percent Auto 1.3 0 - 4 % [facility] Basophils Percent Auto 0.6 0 - 2 % [facility] NRBC Pct Auto 0.0 0.0 - 0.2 /100WBC [facility] Neutrophils Absolute Auto 3.2 2.0 - 8.3 x10*3/uL [facility] Imm Gran Abs Auto 0.01 0.00 - 0.03 X10*3/uL [facility] Lymphocytes Absolute Auto 2.9 1.2 - 4.9 X10*3/uL [facility] Monocytes Absolute Auto 0.5 0.1 - 1.2 X10*3/uL [facility] Eosinophils Absolute Auto 0.1 0.0 - 0.4 X10*3/uL [facility] Basophils Absolute Auto 0.0 0.0 - 0.2 X10*3/uL [facility] NRBC Abs Auto 0.000 0.0 - 0.012 X10*3/uL [facility] 10/02/2024 10:0 3 AM EDT 10/02/2024 10:06 AM EDT us Generic External Data Provider LAB BLOOD ORDERAB LES Final Result Performing Organization Address City/[facility]/ZIP Co de Phone Number [facility] [address] [place] [phone] * Magnesium (10/02/2024 10:03 AM EDT) Magnesium 2.2 1.6 - 2.6 mg/dL [facility] 10/02/2024 10:0 3 AM EDT 10/02/2024 10:06 AM EDT us Generic External Data Provider LAB BLOOD ORDERAB LES Final Result Performing Organization Address City/[facility]/ZIP Co de Phone Number [facility] [address] [place] [phone] * Lipase (10/02/2024 10:03 AM EDT) Pathologist [facility] Lipase 39 8 - 78 U/L [facility] 10/02/2024 10:0 3 AM EDT 10/02/2024 10:06 AM EDT Generic External Data Provider LAB BLOOD ORDERAB LES Final Result Performing Organization Address [facility]/ZIP Co de Phone Number [facility] [address] [place] [phone] * Hepatic Function Panel (10/02/2024 10:03 AM EDT) [facility] Bilirubin, Total 0.3 0.0 - 1.0 mg/dL [facility] Bilirubin, Direct 0.1 0.0 - 0.5 mg/dL [facility] Aspartate Amino Transferase 22 5 - 31 U/L [facility] Alanine Aminotransferase 22 0 - 31 U/L [facility] Total Protein 7.6 6.5 - 8.0 g/dL [facility] Albumin Level 4.6 3.5 - 5.0 g/dL [facility] Alkaline Phosphatase 70 39 - 117 U/L [facility] 10/02/2024 10:0 3 AM EDT 10/02/2024 10:06 AM EDT Generic External Data Provider LAB BLOOD ORDERAB LES Final Result Performing Organization Address City/[facility]/ZIP Co de Phone Number [facility] [address] [place] [phone] * (ABNORMAL) Basic Metabolic Panel (10/02/2024 10:03 AM EDT) [facility] Sodium 138 135 - 145 mmol/L [facility] Potassium 4.8 3.3 - 5.1 mmol/L [facility] Chloride 105 96 - 108 mmol/L [facility] Carbon Dioxide 28 22 - 29 mmol/L [facility] Anion Gap 10(L) 12 - 20 [facility] Urea Nitrogen (BUN) 18(H) 9 - 16 mg/dL [facility] Creatinine, Serum 0.85 0.5 - 1.4 mg/dL [facility] Creatinine Clr Calc Pharmacy 69.5 [facility] Comment:Provided height and weight: 162.56 cm,74.5 kg.eGFR (calculated from the MDRD study equation) and eCrCl(calculated from the Cockcroft-Gault equation) are based ondifferent parameters and may not yield comparable results.If eCrCl result is absurd, please check patient'sheight/weight. Estimated Glomerular Filt Rate >60 [facility] Comment:Chronic Kidney Disea se: Estimated GFR < 60 mL/min/1.08h7Zwfwlh Kidney Disease: Estimated GFR < 15 mL/min/1.73m2 Glucose 99 60 - 115 mg/dL [facility] Calcium 9.4 8.4 - 10.2 mg/dL [facility] 10/02/2024 10:0 3 AM EDT 10/02/2024 10:06 AM EDT us Generic External Data Provider LAB BLOOD ORDERAB LES Final Result [facility] [address] [place] [phone] * Bacterial Vaginosis (10/02/2024 8:16 AM EDT) TRICHOMONAS VAGINALIS DETECTION BY PCR NOT DETECTED Not Detect [facility] BACTERIAL VAGINOSIS DETECTION BY PCR NEGATIVE Negative [facility] Comment:The BV organism targ ets [...] DETECTION BY PCR NOT DETECTED Not Detect [facility] Heather glab krusei PCR NOT DETECTED Not Detect [facility] 10/02/2024 8:16 AM EDT 10/02/2024 2:10 PM EDT Generic External Data Provider LAB MICROBIOLOGY - GENERAL ORDERABLES Final Result Performing Organization Address City/[facility] Co de Phone Number [facility] [address] [place] [phone] * Culture, Urine, Routine (10/02/2024 8:16 AM EDT) Urine Urine specimen obtained by clean catch procedure / Unknown 10/02/2024 8:16 AM EDT 10/02/2024 2:10 PM EDT Comment:UACC Narrative [facility] - 10/03/2024 9:10 AM EDT Urine Culture No growth. Specimen Source: Urine clean catch Generic External Data Provider LAB MICROBIOLOGY - GENERAL ORDERABLES Final Result Performing Organization Address [facility] de Phone Number [facility] [address] [place] [phone] * BI Mammogram Screening Tomosynthesis Bilateral (03/10/2024 12:48 PM EST) Anatomical Region Laterality Modality Breast Bilateral Mammography 03/10/2024 12:4 8 PM EST Narrative 03/16/2024 5:47 PM EST [facility] [address] [place] [address] Mammography Report Signed Patient: Kacy Merritt MR#: [id number] 9 : 1965 Acct:[id number] Age/Sex: 58 / F ADM Date: 03/10/24 Loc: HO.MAMMO Attending Dr: Vidhya Padilla NP Ordering Physician: Vidhya Padilla NP Results: 1Negativ e Date of Service: 03/10/24 Follow Up: 1 Year From Orig inal Mammogram Procedure(s): MM tomosynthesis screening BI Accession Number(s): [id number] cc: Vidhya Padilla PHARMACY CUSTOMER CARE SPECIALIST EXAMINATION: MM SCREENING DIGITAL BREAST TOMOSYNTHESIS, BILATERAL [...] 03/16/24 1744 DD/ 1248 TD/TT: 03/10/24 1308 Sailboat Captain: Procedure Note Donotuseinterpreter, Image - 03/16/2024 [facility] [address] [place] [address] Mammography Report Signed Patient: Meghan Merritt#: [id number] 9 : 1965Acct:[id number] Age/Sex: 58 / FADM Date: 03/10/24 Loc: HO.MAMMO Attending Dr: Vidhya Padilla PHARMACY CUSTOMER CARE SPECIALIST Ordering Physician: Vidhya Padilla NPResults: 1Negativ e Date of Service: 03/10/24Follow Up: 1 Year From Orig inal Mammogram Procedure(s): MM tomosynthesis screening BI Accession Number(s): [id number] cc: Vidhya Padilla PHARMACY CUSTOMER CARE SPECIALIST EXAMINATION: MM SCREENING DIGITAL BREAST TOMOSYNTHESIS, BILATERAL [...] 03/16/24 1744 DD/ 1248 TD/TT: 03/10/24 1308 Sailboat Captain: Vidhya Padilla ROOFING MACHINE TENDER IMG BI PROCEDURES Edited Result - Final * Hepatitis Panel, General (03/14/2023 10:20 AM EST) Hepatitis A IgM Nonreactive Nonreactive [facility] Comment:IgM antibodies to QUEZADA V not detected; does not exclude earlyacute or recovered HAV infection. ~Hepatitis B Surface Antibody NONREACTIVE Nonreactive [facility] Comment:Nonreactive: < 8.00 mIU/mL Hepatitis B Core Antibody Nonreactive Nonreactive [facility] Hepatitis C Antibody Nonreactive Nonreactive [facility] Comment:Antibodies to HCV no t detected; does not exclude early acuteHCV infection. Hepatitis B Surface Ag Negative Negative [facility] 03/14/2023 10:2 0 AM EST 03/14/2023 10:26 AM EST us Generic External Data Provider LAB BLOOD ORDERAB LES Final Result [facility] [address] [place] [address] [phone] * Colonoscopy (05/10/2022 8:39 AM EDT) Colonoscopy Normal Normal Narrative Shanice Perez - 05/10/2022 8:39 AM EDT Recommended 3 year follow up ([facility]) us Historical Provider HEALTH MAINTENANCE Edited Result [...] LDL-C. Eliceo SS et al. ROLDAN. 2013;310(19): 5480-1966 (http://education.KwiClick.com/faq/HOS945) Non-HDL Cholesterol 181(H) <130 mg/dL (calc) [facility] Comment: For patients with diabetes plus 1 major ASCVD risk factor, treating to a non-HDL-C goal of <100 mg/dL (LDL-C of <70 mg/dL) is considered a therapeutic option. Triglycerides 126 <150 mg/dL [facility] 08/05/2021 9:50 AM EDT Claribel Grissom MD LAB BLOOD ORDERABLES Final R esult [facility] [address] [place] [address], from Last 3 Months or Most Recently Relevant to Health Maintenance Insurance [facility] C3 Care Teams Receivable Manager Relationship Specialty Start Date End Date Name, MD Les [address] [place] [address] PCP - General Internal Medicine 10/09/23
--- OUTSIDE RECORDS SUMMARY | 2024-11-27 18:59 | XMS_ITS | Encounter Summary ---
Author Organization [facility] Address [address] [place] [address] Care Team Providers Care Needle Felt Making Machine Operator Name Role Phone Vidhya Padilla PLANT MACHINIST Primary Care Provider [phone] Encounter Details Date Type Department Care Team (Late Contact Info) Description 11/08/2020 Orders Only [facility] [address] [place] [address] Santy Madison MD [address] [place], [place] [phone] Social History Tobacco Use Types Packs/Day Years [...] Info) Description 12/05/2024 10:00 AM EDT Follow-Up [facility] A [address] [place] [address] Patsy Le MD [address] [place] [address] 01/12/2025 9:00 AM EST Appointment [facility] [address] [place] [address] Giovany Machado MD [address] [place] [address] Tong Shultz RT(R) 02/09/2025 9:00 AM EST Follow-Up [facility] Neurology [address] [place] [address] Mary Maria MD [address] [place] [address] documented as of this encounter Visit Diagnoses Not on filedocumented in this encounter Additional Health Concerns Infection Onset Date Last Indicated Resolved Time R/O C.diff 08/25/2022 08/25/2022 08/25/2022 3:19 PM EDT R/O C.diff 09/06/2022 09/06/2022 09/06/2022 12:3 1 PM EDT R/O C.diff 10/03/2022 10/03/2022 10/04/2022 4:31 AM EDT documented as of this encounter Care Teams Needle Felt Making Machine Operator Relationship Specialty Start Date End Date Vidhya Padilla NP [address] [place] [phone] PCP - General Family Medicine 07/27/22 documented as of this encounter
--- OUTSIDE RECORDS SUMMARY | 2024-11-27 18:59 | XMS_ITS | Encounter Summary ---
Author Organization [facility] Address [address] [place] [address] Care Team Providers Care Aesthetician Name Role Phone Melyssa Alonso MD Primary Care Provider Encounter Details Date Type Department Care Team (Late st Contact Info) Description 01/10/2021 Orders Only [facility] [address] [place] [phone] Rehan Gerard, RN [address] [place] [phone] Medications Social History Tobacco Use Types Packs/Day [...] on filedocumented in this encounter Care Teams Aesthetician Relationship Specialty Start Date End Date Melyssa Alonso MD [facility] [address] [place] [address] PCP - General Internal Medicine 07/15/20 documented as of this encounter
--- OUTSIDE RECORDS SUMMARY | 2024-11-27 18:59 | XMS_ITS | Encounter Summary ---
Author Organization [facility] Address [address] [place] [address] [address] [place] [address] Care Team Providers Care Typewriter Aligner Name Role Phone Vidhya Padilla Primary Care Provider [phone] Name, Les GARCIA Primary Care Provider [phone] Encounter Details Date Type Department Care Team (Late st Contact Info) Description 07/20/2022 Abstract [facility] [address] [place] [address] Vidhya Padilla FNP [address] [place], [place] [phone] Social History Tobacco Use Types Packs/Day Years [...] AM EDT Recommended 3 [place] Historical Provider HEALTH MAINTENANCE Edited Result - Final documented in this encounter Visit Diagnoses Not on filedocumented in this encounter Additional Health Concerns Assessment Noted Time PHQ-9 Depression Total Score: 18 023 9:14 AM EDT documented as of this encounter Care Teams Typewriter Aligner Relationship Specialty Start Date End Date Vidhya Padilla FNP [address] [place] [address] PCP - General Family Medicine 02/07/22 10/08/23 Name, MD Les [address] [place] [address] PCP - General Internal Medicine 10/09/23 documented as of this encounter
== END 2024-11-27 15:06 | disposition home or self-care (01) ==
LOC: HO.US 15:05
PROVIDERS: PCP Internal Medicine Geriatric Medicine; Visit Provider Nurse Practitioner Family
DX: R31.29 Other microscopic hematuria (principal); N28.1 Cyst of kidney, acquired
CPT/HCPCS: 76857

== ENCOUNTER → 2024-11-27 16:01 | Outpatient (BNV) | payer MEDICAID, SELFPAY | PROVIDERS: PCP Internal Medicine Geriatric Medicine; Visit Provider Radiology Diagnostic Radiology | DX: R31.29 Other microscopic hematuria (principal) | CPT/HCPCS: 76857 ==

== ENCOUNTER 2024-12-04 09:40 | Outpatient (REF) | payer MEDICAID, SELFPAY ==
--- OUTSIDE RECORDS SUMMARY | 2024-12-04 11:20 | XMS_ITS | Encounter Summary ---
Author Organization [facility] Address [address] [place] [address] Care Team Providers Care Sectionizer Name Role Phone Melyssa Alonso MD Primary Care Provider Encounter Details Date Type Department Care Team (Late st Contact Info) Description 01/10/2021 Orders Only [facility] [address] [place] [phone] Rehan Gerard, RN [address] [place] [phone] Medications Social History Tobacco Use Types Packs/Day [...] on filedocumented in this encounter Care Teams Sectionizer Relationship Specialty Start Date End Date Melyssa Alonso MD [facility] [address] [place] [address] PCP - General Internal Medicine 07/15/20 documented as of this encounter
--- OUTSIDE RECORDS SUMMARY | 2024-12-04 11:20 | XMS_ITS | Encounter Summary ---
Author Organization [employer] [facility] Address [address] [place] [address] [address] [place] [address] Care Team Providers Care Instructor Kindergarten Name Role Phone Claribel Grissom MD Primary Care Provider Vidhya Parker Primary Care Provider [phone] Les Torres MD Primary Care Provider [phone] Encounter Details Date Type Department Care Team (Late st Contact Info) Description 01/25/2022 Telephone [facility] [address] [place], [place] [phone] Claribel Grissom MD Social History Tobacco Use [...] on filedocumented in this encounter Care Teams Instructor Kindergarten Relationship Specialty Start Date End Date Claribel Grissom MD PCP - General Family Medicine 12/09/18 02/06/22 Vidhya Padilla FNP [address] [place] [address] PCP - General Family Medicine 02/07/22 10/08/23 Name, MD Les [address] [place] [address] PCP - General Internal Medicine 10/09/23 documented as of this encounter
--- OUTSIDE RECORDS SUMMARY | 2024-12-04 11:20 | XMS_ITS | Encounter Summary ---
Author Organization [facility] Address [address] [place] [address] Care Team Providers Care Engineer Remote Control Diesel Name Role Phone Vidhya Padilla ROVING INSPECTOR Primary Care Provider Encounter Details Date Type Department Care Team (Late Contact Info) Description 11/08/2020 Orders Only [facility] [address] [place] [address] Santy Madison MD [address] [place], [place] [phone] Social History Tobacco Use Types Packs/Day Years [...] Info) Description 12/05/2024 10:00 AM EDT Follow-Up [facility] A [address] [place] [address] Patsy Le MD [address] [place] [address] 01/12/2025 9:00 AM EST Appointment [facility] [address] [place] [address] Giovany Machado MD [address] [place] [address] Tong Shultz RT(R) 02/09/2025 9:00 AM EST Follow-Up [facility] Neurology [address] [place] [address] Mary Maria MD [address] [place] [address] documented as of this encounter Visit Diagnoses Not on filedocumented in this encounter Additional Health Concerns Infection Onset Date Last Indicated Resolved Time R/O C.diff 08/25/2022 08/25/2022 08/25/2022 3:19 PM EDT R/O C.diff 09/06/2022 09/06/2022 09/06/2022 12:3 1 PM EDT R/O C.diff 10/03/2022 10/03/2022 10/04/2022 4:31 AM EDT documented as of this encounter Care Teams Engineer Remote Control Diesel Relationship Specialty Start Date End Date Vidhya Padilla NP [address] [place] [phone] PCP - General Family Medicine 07/27/22 documented as of this encounter
--- OUTSIDE RECORDS SUMMARY | 2024-12-04 11:20 | XMS_ITS | Clinical Summary ---
Author Organization [employer] Address [address] [facility] [address] [place] [address] Care Team Providers Care Gas Line Installer Name Role Phone Name, Les GARCIA Primary Care Provider [phone] Allergies Active Allergy Reactions Criticality Noted Date [...] Description 11/17/2024 10:15 AM EDT Office Visit [facility] MED[facility] [address] [place] [address] [phone] Les Torres MD Healthcare maintenance (Primary Dx); Encounter for vaccination; Encounter for immunization; Dietary counseling; Exercise counseling 11/17/2024 Travel 11/13/2024 Orders Only GENERIC EXTERNAL DATA DEPARTMENT Provider, Generic External Data 11/10/2024 Patient Outreach [facility] [address] [place] [address] Les Torres MD Pre-visit Planning (SDOH negative, Tobacco screening negative. ) 10/02/2024 Orders Only GENERIC EXTERNAL DATA DEPARTMENT Provider, Generic External Data 09/08/2024 Refill [facility] [address] [place] [address] Les Torres MD Primary hypertension 09/05/2024 Telephone [facility] MEDICINE [address] [place] [phone] Miladys Falk [place] october recall from Last [...] PM EDT Narrative 11/27/2024 4:57 PM EDT [address] [address] Ultrasound Report Signed Patient: Kacy Merritt MR#: [id number] 9 : 1965 Acct:[id number] Age/Sex: 59 / F ADM Date: 11/27/24 Loc: HO.US Attending Dr: Maryanne RAPP Ordering Physician: Maryanne Wells Date of Service: 11/27/24 Procedure(s): US bladder Accession Number(s): [id number] cc: Maryanne Wells; Name,Les GARCIA Reason for [...] 11/27/24 1654 DD/ 1601 TD/TT: 11/27/24 1608 Manpower Development Advisor: Procedure Note Donotuseinterpreter, Image - 11/27/[address] [address] Ultrasound Report Signed Patient: Lashon MerrittR#: [id number] 9 : 1965Acct:[id number] Age/Sex: 59 / FADM Date: 11/27/24 Loc: HO.US Attending Dr: Maryanne RAPP Ordering Physician: Maryanne Wells Date of Service: 11/27/24 Procedure(s): US bladder Accession Number(s): [id number] cc: Maryanne WellsP-; Name,Les GARCIA Reason for [...] MD 11/27/2024 04:54 PM EDT RP Workstation: [id number] Dictated By: Frandy Garcia MD Signed By: <Electronically signed by Frandy Garcia MD in OV> 11/27/24 1654 DD/ 1601 TD/TT: 11/27/24 1608 Manpower Development Advisor: us [facility] External Provider IMG US PROCEDURES Edited Result - Final * US Pelvis Transvaginal (11/25/2024 12:18 AM EDT) Anatomical Region Laterality Modality Pelvis Ultrasound 11/25/2024 12:1 8 AM EDT Narrative 11/25/2024 12:21 AM EDT [place] [address] Ultrasound Report Signed Patient: Kacy Merritt MR#: [id number] 9 : 1965 Acct:[id number] Age/Sex: 59 / F ADM Date: 11/21/24 Loc: HO.US Attending Dr: Genny White CNM Ordering Physician: Genny White CNM Date of Service: 11/21/24 Procedure(s): US pelvic and transvaginal Accession Number(s): [id number] cc: Vidhya Padilla BELL SPINNER; Genny White CNM Reason for Exam: R19.00 - Intra-abdominal and pelvic swelling, mass and lump, unspecified... CLINICAL HISTORY: R19.00 - Intra-abdominal and pelvic swelling, mass and lump, unspecified... US pelvis transabdominal and transvaginal Comparison: None provided Findings: Transabdominal scanning performed for overall anatomy. Transvaginal scanning performed for additional detail. Urinary bladder is utxc-bi-gecyhbmnuh distended on the transabdominal images. Uterus is [...] MD in OV> 11/25/2418 DD/ TD/TT: 11/25/2417 Manpower Development Advisor: Procedure Note Donotuseinterpreter, Image - 11/25/2024 [place] [address] Ultrasound Report Signed Patient: Meghan Merritt#: [id number] 9 : 1965Acct:[id number] Age/Sex: 59 / FADM Date: 11/21/24 Loc: HO.US Attending Dr: Genny White CNM Ordering Physician: Genny White CNM Date of Service: 11/21/24 Procedure(s): US pelvic and transvaginal Accession Number(s): [id number] cc: Vidhya Padilla BELL SPINNER; Genny White CNM Reason for Exam: R19.00 - Intra-abdominal and pelvic swelling, mass andlump, unspecified... CLINICAL HISTORY: R19.00 - Intra-abdominal and pelvic swelling, mass andlump, unspecified... US pelvis transabdominal and transvaginal Comparison: None provided Findings: Transabdominal scanning performed for overall anatomy. Transvaginal scanning performed for additional detail. Urinary bladder is doey-pb-qjerywxudc distended on the transabdominal images. Uterus is [...] 11/25/24 0019 DD/ 0018 TD/TT: 11/25/24 001 Manpower Development Advisor: us [facility] External Provider IMG US PROCEDURES Edited Result - Final * Hematoxylin and Eosin Stain (11/13/2024 1:11 PM EDT) 11/13/2024 1:11 PM EDT 11/13/2024 2:52 PM EDT [facility]S - 11/18/2024 8:47 AM EDT ----- ------- Name: Kacy Merritt Age/Sex: 59/F : 1965 Unit#: [id number] Attend Dr: Gosia Sheehan MD Re11/13/24 Status: [facility] Location: [facility] Disch: ----- ------- SPEC : [id number] RECD: 11/13/24 STATUS: DENNIS BARKER NUM: [id number] TARA: 11/13/[address] [facility] [address]: Gosia Sheehan MD ENTERED: 11/13/24 SP TYPE: Surgical OTHR DR: Vidhya Padilla BELL SPINNER ORDERED: HE Stain/18, Gross Micro L4/6 Diagnosis [...] Name: Kacy Merritt Age/Sex: 59/F : 1965 [id number]#: [id number] Attend Dr: Gosia Sheehan MD Re11/13/24 Status: [facility] Location: [facility] Disch: ----- ------- SPEC : [id number] RECD: 11/13/24981 STATUS: DENNIS BARKER NUM: [id number] TARA: 11/13/24-[address] [facility] [address]: Gosia Sheehan MD ENTERED: 11/13/248388 SP TYPE: Surgical OTHR DR: Vidhya Padilla BELL SPINNER ORDERED: HE Stain/18, Gross Micro L4/6 Gross [...] microscopic examination, 3 pieces in cassette F. ([facility]) IHC S/NG Disclaimer NOTE: Unless otherwise stated, all tissue is formalin-fixed and paraffin-embedded. Some or all of the immunohistochemical tests reported herein may have been developed and their performance characteristics determined by [facility]. They have not been cleared or approved by the U.S. Food and Drug Administration (FDA). However, the FDA has determined that such clearance or approval is not necessary. This laboratory is certified under the Clinical Laboratory Improvement Amendments of 1988 (CLIA) as qualified to perform high complexity clinical laboratory testing. Copies To: Vidhya Padilla NP [address] [phone] Gosia Sheehan MD [facility] [address] [place] [phone] CONTINUED ON NEXT PAGE ----- ------- Name: Kcay Merritt Age/Sex: 59/F : 1965 Unit#: [id number] Attend Dr: Gosia Sheehan MD Re11/13/24 Status: [facility] Location: [facility] Disch: ----- ------- SPEC : [id number] RECD: 11/13/24516 STATUS: DENNIS BARKER NUM: [id number] TARA: 11/13/24-[address] [facility] [address]: Gosia Sheehan MD ENTERED: 11/13/240481 SP TYPE: Surgical OTHR DR: Vidhya Padilla NP ORDERED: HE Stain/18, Manuel Adamson L4/6 ----- ------- Signed (signature on file) Randy Zaman MD 11/18/24 0847 ----- ------- END OF REPORT Generic External Data Provider LAB BLOOD ORDERAB LES Final Result Performing Organization Address [facility] de Phone Number [facility] [address] [place] [address] [phone] * CDiff Gene PCR (11/13/2024 1:02 PM EDT) Only the most recent of2 resultswithin the time period is included. CDiff Gene PCR NEGATIVE Negative [facility] Comment:If C. difficile stro ngly suspected despite one negativetest, a second test may be sent vs. empiric treatment forC. difficile infection. 11/13/2024 1:02 PM EDT 11/13/2024 1:12 PM EDT [employer] External Data Provider LAB BODY FLUIDS A ND STOOLS ORDERABLES Final Result Performing Organization Address [facility] Co de Phone Number [facility] [address] [place] [address] [phone] * Gastrointestinal panel (11/13/2024 1:02 PM EDT) Only the most recent of2 resultswithin the time period is included. Campylobacter Not Detected Not Detect. [facility] Plesiomonas shigelloides Not Detected Not Detect. [facility] Salmonella Not Detected Not Detect. [facility] Vibrio Not Detected Not Detect. [facility] Vibrio cholerae Not Detected Not Detect. [facility] YERSINIA ENTEROCOLITICA Not Detected Not Detect. [facility] Enteroaggregative E. coli (EAEC) Not Detected Not Detect. [facility] Enteropathogenic E. coli (EPEC) Not Detected Not Detect. [facility] Enterotoxigenic E. coli (ETEC) lt/st Not Detected Not Detect. [facility] Shiga-like toxin-producing E. coli (STEC) stx1/stx2 Not Detected Not Detect. [facility] E coli O157 Not applicable Not Detect. [facility] Comment:E. coli containing t he O157 antigen are a subset ofShiga-like toxin- producing E. coli (STEC). Shigella/Enteroinvasive E. coli (EIEC) Not Detected Not Detect. [facility] Cryptosporidium Not Detected Not Detect. [facility] Cyclospora cayetanensis Not Detected Not Detect. [facility] Entamoeba histolytica Not Detected Not Detect. [facility] Giardia lamblia Not Detected Not Detect. [facility] Adenovirus F 40/41 Not Detected Not Detect. [facility] Astrovirus Not Detected Not Detect. [facility] Norovirus GI/GII Not Detected Not Detect. [facility] Rotavirus A Not Detected Not Detect. [facility] Sapovirus Not Detected Not Detect. [facility] Comment: All results must be [...] assay is performed by Multiplexed PCR, utilizing [employer] Array. 11/13/2024 1:02 PM EDT 11/13/2024 1:12 PM EDT Generic External Data Provider LAB MICROBIOLOGY - GENERAL ORDERABLES Final Result Performing Organization Address [facility] de Phone Number [facility] [address] [place] [phone] * Lactoferrin, Quantitative, Stool (11/13/2024 1:02 PM EDT) Lactoferrin, Qn, Stool <6.25 <7.25 mcg/mL [facility] Comment:The following patien t samples should be excluded from use inthe test: patients with a history of HIV and/or havehepatitis B or C, patients with a history of infectiousdiarrhea (within 6 months), and patients having had acolostomy and or ileostomy within 1 month.THIS TEST WAS PERFORMED AT:[facility] [address] [place] [phone] HERNANDEZ MD,PHD,KEVIN 11/13/2024 1:02 PM EDT 11/13/2024 1:12 PM EDT [employer] External Data Provider LAB BODY FLUIDS A ND STOOLS ORDERABLES Final Result Performing Organization Address [facility]/State/ZIP Co de Phone Number [facility] [address] [place] [phone] * US Renal Complete (10/09/2024 9:52 AM EDT) Anatomical Region Laterality Modality Kidney Ultrasound 10/09/2024 9:52 AM EDT Narrative 10/09/2024 11:00 AM EDT [address] [address] Ultrasound Report Signed Patient: Kacy Merritt MR#: [id number] 9 : 1965 Acct:[id number] Age/Sex: 59 / F ADM Date: 10/09/24 Loc: HO.US Attending Dr: Maryanne RAPP Ordering Physician: Maryanne Wells Date of Service: 10/09/24 Procedure(s): US renal BI Accession Number(s): [id number] cc: Vidhya Padilla BELL SPINNER; Maryanne Wells Reason for Exam: R31.29 - [...] 10/09/24 1057 DD/ 0952 TD/TT: 10/09/24 0959 Manpower Development Advisor: Procedure Note Donotuseinterpreter, Image - 10/09/2024 [place] [address] Ultrasound Report Signed Patient: Meghan Merritt#: [id number] 9 : 1965Acct:[id number] Age/Sex: 59 / FADM Date: 10/09/24 Loc: HO.US Attending Dr: Maryanne RAPP Ordering Physician: Maryanne Wells Date of Service: 10/09/24 Procedure(s): US renal BI Accession Number(s): [id number] cc: Vidhya Padilla BELL SPINNER; Maryanne Wells Reason for Exam: R31.29 - [...] 10/09/24 1057 DD/ 0952 TD/TT: 10/09/24 0959 Manpower Development Advisor: us [facility] External Provider IMG US PROCEDURES Final Result * (ABNORMAL) Urinalysis, Complete, with Reflex to Culture (10/02/2024 3:25 PM EDT) Color Urine Yellow [facility] Appearance Urine Clear [facility] PH 5.0 5.0 - 9.0 [facility] Glucose Urine UA Negative Negative mg/dL [facility] Urine Blood Trace(A) Negative [facility] Specific [place] - Urine 1.025 1.005 - 1.025 [facility] Urine Protein Trace Neg-Trace mg/dL [facility] Urine Ketones Trace Negative mg/dL [facility] Nitrite Urine Negative Negative [facility] Leukocyte Esterase Urine Negative Negative [facility] RBC Urine 0-2 0 - 2 /HPF [facility] Urine WBC 0-5 0 - 5 /HPF [facility] Urine Squamous Epithelial Cell 3-5 0 - 2 /HPF [facility] Urine Bacteria 1+ None Seen [facility] Hyaline Casts, Urine 3-5 0 - 2 /LPF [facility] 10/02/2024 3:25 PM EDT 10/02/2024 3:28 PM EDT Narrative [facility] - 10/02/2024 3:46 PM EDT Urine, Clean Catch Generic External Data Provider LAB URINE ORDERAB LES Final Result [facility] [address] [place] [phone] * CT Abdomen Pelvis w/ Contrast (10/02/2024 1:40 PM EDT) Anatomical Region Laterality Modality Body, Pelvis, Abdomen Computed T omography 10/02/2024 1:40 PM EDT Narrative 10/02/2024 3:19 PM EDT [address] [address] [address] Scan Report Signed Patient: Kacy Merritt MR#: [id number] 9 : 1965 Acct:[id number] Age/Sex: 59 / F ADM Date: 10/02/24 Loc: HO.ED Attending Dr: Ordering Physician: Nell Reyes DO Date of Service: 10/02/24 Procedure(s): CT abdomen pelvis w IV con Accession Number(s): [id number] cc: Vidhya Padilla BELL SPINNER; Nell Reyes DO Report Number: [id number]: Total DLP = 624.00 mGy-cm EXAMINATION: CT [...] 10/02/24 1516 DD/ 1340 TD/TT: 10/02/24 1505 Manpower Development Advisor: Procedure Note Donotuseinterpreter, Image - 10/02/[address] [address] [address] Scan Report Signed Patient: Meghan Merritt#: [id number] 9 : 1965Acct:[id number] Age/Sex: 59 / FADM Date: 10/02/24 Loc: HO.ED Attending Dr: Ordering Physician: Nell Reyes DO Date of Service: 10/02/24 Procedure(s): CT abdomen pelvis w IV con Accession Number(s): [id number] cc: Vidhya Padilla BELL SPINNER; Nell Reyes DO Report Number: [id number]: Total DLP = 624.00 mGy-cm EXAMINATION: CT [...] 10/02/24 1516 DD/ 1340 TD/TT: 10/02/24 1505 Manpower Development Advisor: [facility] External Provider IMG CT PROCEDURES Final Result * (ABNORMAL) CBC auto differential (10/02/2024 10:03 AM EDT) White Blood Count 6.7 4.8 - 10.8 X10*3/uL [facility] Red Blood Count 4.52 4.20 - 5.50 X10*6/uL [facility] Hemoglobin 12.1 12.0 - 16.0 g/dl [facility] Hematocrit 38.2 37.0 - 47.0 % [facility] Mean Corpuscular Volume 84.5 80.0 - 98.0 fL [facility] Mean Corpuscular Hemoglobin 26.8(L) 27.0 - 33.0 pg [facility] Mean Corpuscular HGB Conc 31.7 31.0 - 35.0 g/dl [facility] Red Cell Distribution Width 13.7 11.0 - 16.0 % [facility] Platelet Count 324 160 - 400 X10*3/uL [facility] Mean Platelet Volume 9.3(L) 9.4 - 12.3 fL [facility] Neutrophils Percent Auto 47.6 45 - 73 % [facility] Imm Gran Pct Auto 0.1 0.0 - 0.4 % [facility] Lymphocytes Percent Auto 42.4(H) 20 - 40 % [facility] Monocytes Percent Auto 8.0 2 - 11 % [facility] Eosinophils Percent Auto 1.3 0 - 4 % [facility] Basophils Percent Auto 0.6 0 - 2 % [facility] NRBC Pct Auto 0.0 0.0 - 0.2 /100WBC [facility] Neutrophils Absolute Auto 3.2 2.0 - 8.3 x10*3/uL [facility] Imm Gran Abs Auto 0.01 0.00 - 0.03 X10*3/uL [facility] Lymphocytes Absolute Auto 2.9 1.2 - 4.9 X10*3/uL [facility] Monocytes Absolute Auto 0.5 0.1 - 1.2 X10*3/uL [facility] Eosinophils Absolute Auto 0.1 0.0 - 0.4 X10*3/uL [facility] Basophils Absolute Auto 0.0 0.0 - 0.2 X10*3/uL [facility] NRBC Abs Auto 0.000 0.0 - 0.012 X10*3/uL [facility] 10/02/2024 10:0 3 AM EDT 10/02/2024 10:06 AM EDT us Generic External Data Provider LAB BLOOD ORDERAB LES Final Result Performing Organization Address City/[facility]/ZIP Co de Phone Number [facility] [address] [place] [phone] * Magnesium (10/02/2024 10:03 AM EDT) Magnesium 2.2 1.6 - 2.6 mg/dL [facility] 10/02/2024 10:0 3 AM EDT 10/02/2024 10:06 AM EDT us Generic External Data Provider LAB BLOOD ORDERAB LES Final Result Performing Organization Address City/[facility]/ZIP Co de Phone Number [facility] [address] [place] [phone] * Lipase (10/02/2024 10:03 AM EDT) Pathologist [facility] Lipase 39 8 - 78 U/L [facility] 10/02/2024 10:0 3 AM EDT 10/02/2024 10:06 AM EDT Generic External Data Provider LAB BLOOD ORDERAB LES Final Result Performing Organization Address [facility]/ZIP Co de Phone Number [facility] [address] [place] [phone] * Hepatic Function Panel (10/02/2024 10:03 AM EDT) [facility] Bilirubin, Total 0.3 0.0 - 1.0 mg/dL [facility] Bilirubin, Direct 0.1 0.0 - 0.5 mg/dL [facility] Aspartate Amino Transferase 22 5 - 31 U/L [facility] Alanine Aminotransferase 22 0 - 31 U/L [facility] Total Protein 7.6 6.5 - 8.0 g/dL [facility] Albumin Level 4.6 3.5 - 5.0 g/dL [facility] Alkaline Phosphatase 70 39 - 117 U/L [facility] 10/02/2024 10:0 3 AM EDT 10/02/2024 10:06 AM EDT Generic External Data Provider LAB BLOOD ORDERAB LES Final Result Performing Organization Address City/[facility]/ZIP Co de Phone Number [facility] [address] [place] [phone] * (ABNORMAL) Basic Metabolic Panel (10/02/2024 10:03 AM EDT) [facility] Sodium 138 135 - 145 mmol/L [facility] Potassium 4.8 3.3 - 5.1 mmol/L [facility] Chloride 105 96 - 108 mmol/L [facility] Carbon Dioxide 28 22 - 29 mmol/L [facility] Anion Gap 10(L) 12 - 20 [facility] Urea Nitrogen (BUN) 18(H) 9 - 16 mg/dL [facility] Creatinine, Serum 0.85 0.5 - 1.4 mg/dL [facility] Creatinine Clr Calc Pharmacy 69.5 [facility] Comment:Provided height and weight: 162.56 cm,74.5 kg.eGFR (calculated from the MDRD study equation) and eCrCl(calculated from the Cockcroft-Gault equation) are based ondifferent parameters and may not yield comparable results.If eCrCl result is absurd, please check patient'sheight/weight. Estimated Glomerular Filt Rate >60 [facility] Comment:Chronic Kidney Disea se: Estimated GFR < 60 mL/min/1.77r6Lcfudv Kidney Disease: Estimated GFR < 15 mL/min/1.73m2 Glucose 99 60 - 115 mg/dL [facility] Calcium 9.4 8.4 - 10.2 mg/dL [facility] 10/02/2024 10:0 3 AM EDT 10/02/2024 10:06 AM EDT us Generic External Data Provider LAB BLOOD ORDERAB LES Final Result [facility] [address] [place] [phone] * Bacterial Vaginosis (10/02/2024 8:16 AM EDT) TRICHOMONAS VAGINALIS DETECTION BY PCR NOT DETECTED Not Detect [facility] BACTERIAL VAGINOSIS DETECTION BY PCR NEGATIVE Negative [facility] Comment:The BV organism targ ets [...] DETECTION BY PCR NOT DETECTED Not Detect [facility] Heather glab krusei PCR NOT DETECTED Not Detect [facility] 10/02/2024 8:16 AM EDT 10/02/2024 2:10 PM EDT Generic External Data Provider LAB MICROBIOLOGY - GENERAL ORDERABLES Final Result Performing Organization Address City/[facility] Co de Phone Number [facility] [address] [place] [phone] * Culture, Urine, Routine (10/02/2024 8:16 AM EDT) Urine Urine specimen obtained by clean catch procedure / Unknown 10/02/2024 8:16 AM EDT 10/02/2024 2:10 PM EDT Comment:UACC Narrative [facility] - 10/03/2024 9:10 AM EDT Urine Culture No growth. Specimen Source: Urine clean catch Generic External Data Provider LAB MICROBIOLOGY - GENERAL ORDERABLES Final Result Performing Organization Address [facility] de Phone Number [facility] [address] [place] [phone] * BI Mammogram Screening Tomosynthesis Bilateral (03/10/2024 12:48 PM EST) Anatomical Region Laterality Modality Breast Bilateral Mammography 03/10/2024 12:4 8 PM EST Narrative 03/16/2024 5:47 PM EST [facility] [address] [place] [address] Mammography Report Signed Patient: Kacy Merritt MR#: [id number] 9 : 1965 Acct:[id number] Age/Sex: 58 / F ADM Date: 03/10/24 Loc: HO.MAMMO Attending Dr: Vidhya Padilla NP Ordering Physician: Vidhya Padilla NP Results: 1Negativ e Date of Service: 03/10/24 Follow Up: 1 Year From Orig inal Mammogram Procedure(s): MM tomosynthesis screening BI Accession Number(s): [id number] cc: Vidhya Padilla BELL SPINNER EXAMINATION: MM SCREENING DIGITAL BREAST TOMOSYNTHESIS, BILATERAL [...] 03/16/24 1744 DD/ 1248 TD/TT: 03/10/24 1308 Manpower Development Advisor: Procedure Note Donotuseinterpreter, Image - 03/16/2024 [facility] [address] [place] [address] Mammography Report Signed Patient: Meghan Merritt#: [id number] 9 : 1965Acct:[id number] Age/Sex: 58 / FADM Date: 03/10/24 Loc: HO.MAMMO Attending Dr: Vidhya Padilla BELL SPINNER Ordering Physician: Vidhya Padilla NPResults: 1Negativ e Date of Service: 03/10/24Follow Up: 1 Year From Orig inal Mammogram Procedure(s): MM tomosynthesis screening BI Accession Number(s): [id number] cc: Vidhya Padilla BELL SPINNER EXAMINATION: MM SCREENING DIGITAL BREAST TOMOSYNTHESIS, BILATERAL [...] 03/16/24 1744 DD/ 1248 TD/TT: 03/10/24 1308 Man[employer] Development Advisor: Vidhya Padilla [employer] IMG BI PROCEDURES Edited Result - Final * Hepatitis Panel, General (03/14/2023 10:20 AM EST) Hepatitis A IgM Nonreactive Nonreactive [facility] Comment:IgM antibodies to [place] V not detected; does not exclude earlyacute or recovered HAV infection. ~Hepatitis B Surface Antibody NONREACTIVE Nonreactive [facility] Comment:Nonreactive: < 8.00 mIU/mL Hepatitis B Core Antibody Nonreactive Nonreactive [facility] Hepatitis C Antibody Nonreactive Nonreactive [facility] Comment:Antibodies to HCV no t detected; does not exclude early acuteHCV infection. Hepatitis B Surface Ag Negative Negative [facility] 03/14/2023 10:2 0 AM EST 03/14/2023 10:26 AM EST us Generic External Data Provider LAB BLOOD ORDERAB LES Final Result [facility] [address] [place] [phone] * Colonoscopy (05/10/2022 8:39 AM EDT) Colonoscopy Normal Normal Narrative Shanice Perez - 05/10/2022 8:39 AM EDT Recommended 3 year follow up ([facility]) us Historical Provider HEALTH MAINTENANCE Edited Result [...] LDL-C. Eliceo SS et al. ROLDAN. 2013;310(19): 8824-7258 (http://education.SofGenie.com/faq/YQF283) Non-HDL Cholesterol 181(H) <130 mg/dL (calc) [facility] Comment: For patients with diabetes plus 1 major ASCVD risk factor, treating to a non-HDL-C goal of <100 mg/dL (LDL-C of <70 mg/dL) is considered a therapeutic option. Triglycerides 126 <150 mg/dL [facility] 08/05/2021 9:50 AM EDT Claribel Grissom MD LAB BLOOD ORDERABLES Final R esult [facility] [address] [place] [address], from Last 3 Months or Most Recently Relevant to Health Maintenance Insurance [facility] C3 Care Teams Gas Line Installer Relationship Specialty Start Date End Date Name, MD Les [address] [place] [address] PCP - General Internal Medicine 10/09/23
--- OUTSIDE RECORDS SUMMARY | 2024-12-04 11:20 | XMS_ITS | Encounter Summary ---
Author Organization [employer] Address [address] [place] [address] 7[address] [place] [address] Care Team Providers Care Auto Servicer Name Role Phone Vidhya Padilla Primary Care Provider [phone] Name, Les GARCIA Primary Care Provider [phone] Encounter Details Date Type Department Care Team (Late st Contact Info) Description 07/20/2022 Abstract [facility] MEDICINE [address] [place] [address] Vidhya Padilla FNP [address] [place], [place] [phone] Social History Tobacco Use Types Packs/Day Years [...] AM EDT Recommended 3 year follow up ([facility]) us Historical Provider HEALTH MAINTENANCE Edited Result - Final documented in this encounter Visit Diagnoses Not on filedocumented in this encounter Additional Health Concerns Assessment Noted Time PHQ-9 Depression Total Score: 18 023 9:14 AM EDT documented as of this encounter Care Teams Auto Servicer Relationship Specialty Start Date End Date Vidhya Padilla FNP [address] [place] [address] PCP - General Family Medicine 02/07/22 10/08/23 Name, MD Les [address] [place] [address] PCP - General Internal Medicine 10/09/23 documented as of this encounter
--- OUTSIDE RECORDS SUMMARY | 2024-12-04 11:20 | XMS_ITS | Encounter Summary ---
Author Organization [employer] Address [address] [place] [address] 7t [place] [address] Care Team Providers Care Hatchery Employee Name Role Phone Vidhya Padilla Primary Care Provider [phone] Name, Les GARCIA Primary Care Provider [phone] Reason for Visit * Reason Comments Med Change Request Encounter Details Date Type Department Care Team ([facility] st Contact Info) Description 08/02/2022 Refill [facility] MED[facility]INE [address] [place] [address] Vidhya Padilla FNP [address] [place] [address] Social History Tobacco Use Types Packs/Day Years [...] documented as of this encounter Care Teams Hatchery Employee Relationship Specialty Start Date End Date Vidhya Padilla FNP [address] [place] [address] PCP - General Family Medicine 02/07/22 10/08/23 Name, MD Les [address] [place] [address] PCP - General Internal Medicine 10/09/23 documented as of this encounter
--- OUTSIDE RECORDS SUMMARY | 2024-12-04 11:20 | XMS_ITS | Encounter Summary ---
Author Organization [employer] Address [address] [place] [address] 7t [place] [address] Care Team Providers Care Labor Economics Teacher Name Role Phone Vidhya Padilla Primary Care Provider [phone] Name, Les GARCAI Primary Care Provider [phone] Encounter Details Date Type Department Care Team (Late st Contact Info) Description 03/21/2022 Orders Only [facility] MEDICINE [address] [place] [address] Vidhya Padilla FNP [address] [place], [place] [phone] Sigmoid diverticulitis (Primary Dx) Social History Tobacco [...] hemorrhage) documented in this encounter Care Teams Labor Economics Teacher Relationship Specialty Start Date End Date Vidhya Padilla FNP [address] [place] [address] PCP - General Family Medicine 02/07/22 10/08/23 Name, MD Les [address] [place] [address] PCP - General Internal Medicine 10/09/23 documented as of this encounter
--- OUTSIDE RECORDS SUMMARY | 2024-12-04 11:20 | XMS_ITS | Encounter Summary ---
Author Organization [employer] Address [address] [facility] 7t [place] [address] Care Team Providers Care Economics Professor Name Role Phone Vidhya Padilla Primary Care Provider [phone] Name, Les GARCIA Primary Care Provider [phone] Reason for Visit * Reason Onset Date Comments Referral 03/01/2022 Encounter Details Date Type Department Care Team (Late st Contact Info) Description 03/01/2022 Telephone [facility] MEDICINE [address] [place], [place] [phone] Vidhya Padilla FNP [address] [place], [place] [phone] Referral Social History Tobacco Use Types Packs/Day [...] 03/01/2022 2:52 PM EST Telephone call to [facility] urology in regards to pt's referral. Pt needs referral for cyst in kidney andabdominal pain per [facility]. N28.1 and R10.9 respectively. * Telephone Encounter - Nolan Carlisle - 03/01/2022 9:03 AM EST Tc from pt requesting a referral to [facility] [place]. Pt states she received a call and she was advised to request a referral do to something in her Left Kidney. Quantitative Strategy Analyst was attempting togather details, pt was unable to provide details. [facility] [address] [place] [address] If any questions please contact pt at [phone] documented in this encounter Plan of Treatment Not on file documented as of this encounter Visit Diagnoses Diagnosis Renal cyst- Primary Unspecified congenital cystic kidney disease documented in this encounter Care Teams Economics Professor Relationship Specialty Start Date End Date Vidhya Padilla FNP [address] [place] [address] PCP - General Family Medicine 02/07/22 10/08/23 Name, MD Les [address] [place] [address] PCP - General Internal Medicine 10/09/23 documented as of this encounter
--- OUTSIDE RECORDS SUMMARY | 2024-12-04 11:20 | XMS_ITS | Encounter Summary ---
Author Organization [facility] Address [address] [place] [address] Care Team Providers Care Dimensional Integration Engineer Name Role Phone Vidhya Padilla DIRECTOR EMERGENCY Primary Care Provider [phone] Reason for Visit * Reason Onset Date Comments PAC Appt Request - New 07/27/2022 Encounter Details Date Type Department Care Team ([facility] Contact Info) Description 07/27/2022 Telephone [facility] [address] [place] [address] Telephone Intake, Staff PAC Appt Request - [...] available is February, please call patient with acute care registered nurse to schedule appt. documented in this encounter Plan of Treatment Upcoming Encounters Date Type Department Care Team (Late st Contact Info) Description 12/05/2024 10:00 AM EDT Follow-Up [facility] A [address] [place] [address] Patsy Le MD [address] [place] [address] 01/12/2025 9:00 AM EST Appointment [facility] Neurodiagnostics [address] [place] [address] Giovany Machado MD [address] [place] [address] Tong Shultz RT(R) 02/09/2025 9:00 AM EST Follow-Up [facility] Neurology [address] [place] [address] Mary Maria MD [address] [place] [address] documented as of this encounter Visit Diagnoses Not on filedocumented in this encounter Additional Health Concerns Infection Onset Date Last Indicated Resolved Time R/O C.diff 08/25/2022 08/25/2022 08/25/2022 3:19 PM EDT R/O C.diff 09/06/2022 09/06/2022 09/06/2022 12:3 1 PM EDT R/O C.diff 10/03/2022 10/03/2022 10/04/2022 4:31 AM EDT documented as of this encounter Care Teams Dimensional Integration Engineer Relationship Specialty Start Date End Date Vidhya Padilla NP [address] [place] [address] PCP - General Family Medicine 07/27/22 documented as of this encounter
--- OUTSIDE RECORDS SUMMARY | 2024-12-04 11:20 | XMS_ITS | Clinical Summary ---
Author Organization [facility] Address [address] [place] [address] Care Team Providers Care Machine Etcher Name Role Phone Melyssa Alonso MD Primary [...] Zoster (Zostavax) Discontinued Procedures * Due to [place] [employer] law, this organization might not be sharing negative HIV tests. Procedure Name Priority Date/Time Associated Diagnosis Comments COMPREHENSIVE EYE EXAM 07/15/2020 from Last 3 Months or Most Recently Relevant to Health Maintenance Results * Due to [place] [employer] law, this organization might not be sharing negative HIV tests. * COMPREHENSIVE EYE EXAM (07/15/2020) Fawad VALENCIA PROCEDURE Final Result from Last 3 Months or Most Recently Relevant to Health Maintenance Insurance MEDICAID MEDICAID Care Teams Machine Etcher Relationship Specialty Start Date End Date Melyssa Alonso MD [address] [address] PCP - General Internal Medicine 07/15/20
--- OUTSIDE RECORDS SUMMARY | 2024-12-04 11:20 | XMS_ITS | Clinical Summary ---
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; Dizziness; Muscle tension headache 09/30/2024 8:33 AM EDT - 09/30/2024 11:59 PM EDT Hospital Encounter [facility] Neurodiagnostics [address] [place] [address] Giovany Machado MD Georges, Patrick 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 (Primary Dx) Discharge Disposition: Home or Self Care (01) 09/30/2024 Orders Only [facility] [address] [place] [address] Giovany Machado MD 09/30/2024 Orders Only [facility] B [address] [place] [address] Patsy Le MD Bilateral occipital neuralgia (Primary [...] Info) Description 12/05/2024 10:00 AM EDT Follow-Up [facility] A [address] [place] [address] Patsy Le MD [address] [place] [address] 01/12/2025 9:00 AM EST Appointment [facility] Neurodiagnostics [address] [place] [address] Giovany Machado MD [address] [place] [address] Tong Shultz RT(R) 02/09/2025 9:00 AM EST Follow-Up [facility] Neurology [address] [place] [address] Mary Maria MD [address] [place] [address] Health Maintenance Due Date Last Done Comments [...] complete this topic Procedures * Due to [place] [employer] law, this organization might not be sharing negative HIV tests. Procedure Name Priority Date/Time Associated Diagnosis Comments NC INJECT NERV BLCK,GREAT OCCIPTL Routine 10/15/2024 10:15 AM EDT Bilateral occipital neuralgia GLUCOSE, RANDOM Routine 07/18/2018 11:28 AM EDT Optic nerve swelling Migraine aura, persistent, intractable from Last 3 Months or Most Recently Relevant to Health Maintenance Results * Due to [place] [employer] law, this organization might not be sharing negative HIV tests. * NC INJECT NERV BLCK,GREAT OCCIPTL (10/15/2024 10:15 AM [...] Patient's understanding of procedure matches consent: Yes [place] Protocol: Procedure consent matches procedure scheduled: Yes [...] outpatient to the ambulatory injection suite at [facility]. Vital signs were monitored before and [...] - 99 mg/dL 07/18/2018 12:01 PM EDT [facility] Blood specimen (specimen) Structure of peripheral vein / Unknown Venipuncture / Unknown 07/18/2018 11:28 AM EDT 07/18/2018 11:35 AM EDT Mary Maria MD LAB BLOOD ORDERABLES Final Resul t [facility] [address] [place] [address], from Last 3 Months or Most Recently Relevant to Health Maintenance Insurance [facility] Care Teams Certified Recreational Therapist Relationship Specialty Start Date End Date Vidhya Padilla NP [address] [place] [address] PCP - General Family Medicine 07/27/22
[2024-12-04 11:45] LABS: Cholesterol 289 mg/dL (<200); HDL Cholesterol 61 mg/dL (>40); Triglycerides 96 mg/dL (<150)
[2024-12-07 02:44] LABS: TS Negative Control Passed; TS Panel A 0; TS Panel B 2; TS Positive Control Passed; TSpotTB Negative (Negative)
== END 2024-12-04 09:41 | disposition home or self-care (01) ==
LOC: HO.LAB 09:40
PROVIDERS: PCP Internal Medicine Geriatric Medicine; Visit Provider Internal Medicine Gastroenterology
DX: Z00.00 Encounter for general adult medical examination without abnormal findings (principal); K52.9 Noninfective gastroenteritis and colitis, unspecified
CPT/HCPCS: 36415; 80061; 86481

== ENCOUNTER 2024-12-16 13:00 | Outpatient (AMB) | payer MEDICAID, SELFPAY ==
--- NOTE | 2024-12-16 13:15 | A.OFFVIS_ITS ---
Intake Visit Reasons: 1y/US Intake Note: Patient is present for 1Y/US Urology Medication:NONE Antibiotic Allergy:PENICIILINS Blood Thinner:NONE Manager Of Loss Prevention Operations Required: No Manager Of Loss Prevention Operations Services: Manager Of Loss Prevention Operations Present Manager Of Loss Prevention Operations Name: Yanick [id number] Allergies Penicillins (PENICILLINS) Allergy (Intermediate, Verified 12/16/24 14:17) HIVES/SWELLING bupropion (From Wellbutrin) Allergy (Verified 12/16/24 14:17) hives, swelling Medication List - Last Reconciled 12/16/24 by TAMELA Hall cholecalciferol (vitamin D3) 25 mcg PO QAM famotidine 40 mg PO BID galcanezumab-gnlm (Emgality) mg subcut lisinopril 20 mg PO DAILY magnesium gluconate 27 mg PO DAILY metoprolol tartrate 25 mg PO BID nortriptyline 100 mg PO BEDTIME sumatriptan succinate 100 mg PO DAILY PRN HPI Comments Details: Kacy is a pleasant Kyrgyz-speaking 59 year-old female patient of Dr. Padilla. She has a past medical history of chronic idiopathic constipation, diarrhea, diverticulitis, GERD, irritable bowel syndrome, and renal cysts. She presents to the office today for follow-up of her renal cysts and microscopic hematuria. In discussion with the patient today she reports urologically she has been doing and feeling well. She does however discuss her ongoing issues with colitis as well as lumbar discomfort. Most recent renal ultrasound results reviewed with the patient today. 10/30 no hydronephrosis. Bilateral renal simple cysts. The bladder is unremarkable. Normal renal and bladder ultrasound per radiology re port. In office urinalysis results reviewed with the patient today. No microscopic hematuria noted on UA today. She denies any previous history of nicotine dependence and or workplace chemical exposure. She denies any bothersome urinary issues or concerns. She denies urinary urgency, urinary frequency, incontinence, nocturia, hematuria, dysuria, foul smelling urine, changes to urinary stream, flank pain, fever, and or chills. She is happy with her current voiding parameters. She otherwise offers no issues or concerns at this time. [facility] Medical History Pelvic mass Kidney anomaly, congenital Bleeding hemorrhoids Chronic abdominal pain LLQ cramping Diverticular disease of colon Clostridioides difficile diarrhea Colitis Left lower quadrant pain Tubular adenoma of colon Irritable bowel syndrome with diarrhea Sigmoid diverticulitis Acute diverticulitis Diarrhea Diverticulitis Abdominal pain Lower abdominal pain Chronic idiopathic constipation Constipation GERD (gastroesophageal reflux disease) Surgical History History of surgery History of intestinal surgery History of partial hysterectomy (~09/2006) Hx of hemorrhoidectomy (2008) Hx of colonoscopy (11/14/23) History of esophagogastroduodenoscopy (EGD) (11/14/23) Family History Father Cancer HTN (hypertension) Mother HTN (hypertension) Hyperthyroidism Migraine headache Maternal Grandmother History of breast cancer Paternal Grandmother History of breast cancer Family/Other Colon cancer Paternal Aunt Ovarian cancer Social History Household Members: Family and None Housing: Apartment Are you a primary urgent care technician to a significant other at home: No Do you presently have visiting nurse or other home services: No Alcohol intake: never Patient Tobacco Use Status: Never used Tobacco service: No Current occupational status: disabled Current occupational exposures/hazards: No Female Reproductive History Menstrual Age of Menarche: 7 Review of Systems Eyes Reports no additional complaints ENT Reports no additional complaints Card Reports no additional complaints Resp Reports no additional complaints GI Reports as per HPI Reports as per HPI Musc Reports no additional complaints Neuro Reports no additional complaints Psych Reports no additional complaints Endo Reports no additional complaints Erik/Lymph Reports no additional complaints Aller/Immun Reports no additional complaints Physical Exam Const General: cooperative, healthy appearing, comfortable, no acute distress, well developed, alert and awake Orientation/consciousness: patient oriented x3 Limitations: language barrier Resp Effort & Inspection: normal respiratory effort and able to speak in complete sentences Neuro General: patient oriented x3 Psych Speech and movement: Clear speech present Thought process: Normal thought process present Thought content: Normal thought content present Insight: Fair insight present (Psych) Judgement: Fair judgement present (Psych) Results AMB Urinalysis, Automated UA Leukoctes 0 Jose/uL Last Edit by GERMAN Ortiz on 12/16/24 13:27 UA Nitrite Negative Last Edit by GERMAN Ortiz on 12/16/24 13:27 UA Urobilinogen 0.2 mg/dL Last Edit by Hasmukh Dc [facility] on 12/16/24 13:2 7 UA Protein 30 mg/dL Last Edit by Hasmukh Dc [facility] on 12/16/24 13:27 UA pH 6.0 Last Edit by Hasmukh Dc [facility] on 12/16/24 13:27 UA Blood 0 Wally/uL Last Edit by Hasmukh Dc [facility] on 12/16/24 13:27 UA Specific [place] 1.030 Last Edit by Hasmukh Dc [facility] on 12/16/24 13: 27 UA Ketone Negative Last Edit by Hasmukh cD [facility] on 12/16/24 13:27 UA Bilirubin 1 mg/dL Last Edit by Hasmukh Dc [facility] on 12/16/24 13:27 UA Glucose 0 mg/dL Last Edit by Hasmukh Dc [facility] on 12/16/24 13:27 Results Reviewed Results Reviewed: Laboratory Last Values Urine pH (Auto) 6.0 12/16/24 13:26 Specific [place] (Auto) 1.030 12/16/24 13:26 Urine Protein (Auto) 30 mg/dL 12/16/24 13:26 Glucose (UA)(Auto) 0 mg/dL 12/16/24 13:26 Urine Ketones (Auto) Negative 12/16/24 13:26 Urine Blood (Auto) 0 Wally/uL 12/16/24 13:26 Urine Nitrite (Auto) Negative 12/16/24 13:26 Urine Bilirubin (Auto) 1 mg/dL 12/16/24 13:26 Urine Urobilinogen (Auto) 0.2 mg/dL 12/16/24 13:26 Leukocyte Esterase (Auto) 0 Jose/uL 12/16/24 13:26 Date of Service: 10/09/24 Procedure(s): US renal BI FINDINGS: RIGHT KIDNEY: 10 x 5 x 5 cm (SAG x AP x TRV). Volume: 132 cc. Normal echotexture. Normal renal cortical thickness. No hydronephrosis. There is a 0.9 cm exophytic anechoic lesion without septations or nodular components or flow on color Doppler interrogation centered in the midportion. LEFT KIDNEY: 10 x 5 x 5 cm (SAG x AP x TRV). Volume: 121 cc. Normal echotexture. Normal renal cortical thickness. No hydronephrosis. There is a 1.5 cm well-defined ovoid shaped anechoic lesion at the corticomedullary junction of the midportion without septations or nodular component or flow on color Doppler interrogation. No hydronephrosis. Bilateral renal simple cysts.. Date of Service: 11/27/24 Procedure(s): US bladder FINDINGS: BLADDER: Well distended and normal. Bilateral ureteral jets are demonstrated. Prevoid bladder volume is 151 mL. Postvoid bladder volume is 6 mL. IMPRESSION: Normal ultrasound of the urinary bladder. Assessment & Plan Assessment & Plan (1) Renal cyst: Code(s): N28.1 - Cyst of kidney, acquired Category: Medical (2) Microscopic hematuria: Code(s): R31.29 - Other microscopic hematuria Category: Medical Plan In office urinalysis results reviewed with the patient today; as noted above. Most recent bladder and renal ultrasound results reviewed with the patient today; as noted above. She currently denies any bothersome urinary issues. She reports be happy with current voiding parameters. Will continue with surveillance monitoring. Will obtain renal ultrasound in 1 year. Follow-up in 1 year with imaging; or sooner with any issues, concerns, and or questions. Orders: Orders AMB Urinalysis Automated Today Z13.9 - Encounter for screening, unspecified Medications: Refilled cholecalciferol (vitamin D3) 25 mcg PO QAM 90 tabs 1RF Patient Instructions: The patient had an opportunity to ask questions regarding the treatment plan. All questions were answered. Physical exam, labs, and imaging were discussed and reviewed in detail. As well as risks, benefits, and discussion of treatment choices. No major barriers to understanding were identified. The patient expressed understanding and agreement with the above treatment plan. The patient was made aware they should contact our office by phone for worsening of their current condition, the appearance of new symptoms, or with any questions or concerns. Compliance is encouraged with any medications and follow up testing that is ordered. It is a privilege to be allowed the opportunity to participate in? your urological care.? Again, if you have any questions or concerns If you have any questions or concerns please do not hesitate to contact me. The office is [phone]. This note is constructed using voice recognition software. While every effort has been made to ensure accuracy certifier errors may have been included. Yours sincerely, TAMELA Hall Coding Level of Care Code Est Pt Level 3 (51215) Complex EM visit Add On G2211 Diagnoses Renal cyst N28.1 Microscopic hematuria R31.29
--- OUTSIDE RECORDS SUMMARY | 2024-12-16 14:44 | XMS_ITS | Encounter Summary ---
Author Organization [facility] Address [address] [place] [address] Care Team Providers Care Lay Out Helper Name Role Phone Vidhya Padilla NP Primary Care Provider [phone] Encounter Details Date Type Department Care Team (Late Contact Info) Description 11/08/2020 Orders Only [facility]rology Clinic [address] [place] [address] Santy Madison MD [address] [place] [address] Social History Tobacco Use Types Packs/Day Years [...] Info) Description 01/12/2025 9:00 AM EST Appointment [facility] Neurodiagnostics [address] [place] [address] Giovany Machado MD [address] [place], [place] [phone] Tong Shultz RT(R) 02/09/2025 9:00 AM EST Follow-Up [facility] Neurology [address] [place] [address] Mary Maria MD [address] [place] [address] documented as of this encounter Visit Diagnoses Not on filedocumented in this encounter Additional Health Concerns Infection Onset Date Last Indicated Resolved Time R/O C.diff 08/25/2022 08/25/2022 08/25/2022 3:19 PM EDT R/O C.diff 09/06/2022 09/06/2022 09/06/2022 12:3 1 PM EDT R/O C.diff 10/03/2022 10/03/2022 10/04/2022 4:31 AM EDT documented as of this encounter Care Teams Lay Out Helper Relationship Specialty Start Date End Date Vidhya Padilla NP [address] [place] [address] PCP - General Family Medicine 07/27/22 documented as of this encounter
--- OUTSIDE RECORDS SUMMARY | 2024-12-16 14:44 | XMS_ITS | Encounter Summary ---
Author Organization [employer] Address [address] [place] [address] 7t [place] [address] Care Team Providers Care Medical Staff Coordinator Name Role Phone Vidhya Padilla Primary Care Provider [phone] Name, Les GARCIA Primary Care Provider [phone] Encounter Details Date Type Department Care Team (Late st Contact Info) Description 07/20/2022 Abstract [facility] MEDICINE [address] [place] [address] Vidhya Padilla FNP [address] [place], [place] [phone] Social History Tobacco Use Types Packs/Day Years [...] AM EDT Recommended 3 year follow up ([facility]) us Historical Provider HEALTH MAINTENANCE Edited Result - Final documented in this encounter Visit Diagnoses Not on filedocumented in this encounter Additional Health Concerns Assessment Noted Time PHQ-9 Depression Total Score: 18 023 9:14 AM EDT documented as of this encounter Care Teams Medical Staff Coordinator Relationship Specialty Start Date End Date Vidhya Padilla FNP [address] [place] [address] PCP - General Family Medicine 02/07/22 10/08/23 Name, MD Les [address] [place] [address] PCP - General Internal Medicine 10/09/23 documented as of this encounter
--- OUTSIDE RECORDS SUMMARY | 2024-12-16 14:44 | XMS_ITS | Encounter Summary ---
Author Organization [facility] Address [address] [place] [address] Care Team Providers Care Emergency Telecommunications Dispatcher Name Role Phone Vidhya Padilla [employer] PERSON Primary Care Provider [phone] Reason for Visit * Reason Onset Date Comments PAC Appt Request - New 07/27/2022 Encounter Details Date Type Department Care Team ([facility] Contact Info) Description 07/27/2022 Telephone [facility] [address] [place] [phone] Telephone Intake, Staff PAC Appt Request - [...] available is February, please call patient with interpreter deaf to schedule appt. documented in this encounter Plan of Treatment Upcoming Encounters Date Type Department Care Team (Late st Contact Info) Description 01/12/2025 9:00 AM EST Appointment [facility] [address] [place] [address] Giovany Machado MD [address] [place] [phone] Tong Shultz RT(R) 02/09/2025 9:00 AM EST Follow-Up [facility] [address] [place] [phone] Mary Maria MD [address] [place] [phone] documented as of this encounter Visit Diagnoses Not on filedocumented in this encounter Additional Health Concerns Infection Onset Date Last Indicated Resolved Time R/O C.diff 08/25/2022 08/25/2022 08/25/2022 3:19 PM EDT R/O C.diff 09/06/2022 09/06/2022 09/06/2022 12:3 1 PM EDT R/O C.diff 10/03/2022 10/03/2022 10/04/2022 4:31 AM EDT documented as of this encounter Care Teams Emergency Telecommunications Dispatcher Relationship Specialty Start Date End Date Vidhya Padilla NP [address] [place] [id number] PCP - General Family Medicine 07/27/22 documented as of this encounter
--- OUTSIDE RECORDS SUMMARY | 2024-12-16 14:44 | XMS_ITS | Clinical Summary ---
Author Organization [email or web address] Address [address] [facility] [address] [place] [address] Care Team Providers Care Dry Talc Racker Name Role Phone Name, Les GARCIA Primary Care Provider [phone] Allergies Active Allergy Reactions Criticality Noted Date [...] by mouth 2 times daily. 023 Active nabumetone (Relafen) 750 MG tablet Take 1 tablet by mouth 2 times daily. Active prochlorperazine (Compazine) 10 MG tablet TAKE 1 TABLET BY MOUTH TWICE A DAY NEEDED FOR NAUSEA AND VOMITING Active A.E.RPete Crane Aixa pad APPLY TOPICALLY IF NEEDED FOR IRRITATION OR HEMORRHOIDS. *NC* Active cholecalciferol (Vitamin D3) 25 MCG (1000 UT) tabletIndication s:Vitamin D insufficiency TAKE 1 TABLET BY MOUTH EVERY DAY IN THE MORNING 90 tablet 1 024 Active cholestyramine light (Prevalite) 4 g packet [...] tablets by mouth Once per day. Active Emgality 120 MG/ML prefilled syringe INJECT 120 MG SUBCUTANEOUS EVERY 28 DAYS Active lisinopril 20 MG tabletIndication s:Primary hypertension TAKE 1 TABLET BY MOUTH EVERY DAY 90 tablet 1 Active atorvastatin (Lipitor) 20 MG tablet Take 1 tablet (20 mg) by mouth Once per day. 30 tablet 11 025 2025 Active metoprolol tartrate (Lopressor) 25 MG tablet TAKE 1 TABLET BY MOUTH TWICE A DAY 180 tablet 3 025 Active metoprolol tartrate (Lopressor) 25 MG tablet TAKE 1 TABLET BY MOUTH TWICE A DAY 180 tablet 3 024 2024 Discontinued traMADol (Ultram) 50 MG tablet Take 1 tablet by mouth every 8 (eight) hours if needed for pain. 025 2024 Discontinued(T herapy completed) Active Problems Problem Noted Date Diagnosed Date [...] sent a stat referral to see Dr. Jaworek with ID. Proper sanitary precautions were taking [...] Encounters Date Type Department Care Team Description 12/16/2024 Telephone [facility] [address] [place] [phone] Les Torres MD Medication Question 12/05/2024 Refill [facility] [address] [place] [address] Les Torres MD 12/04/2024 Orders Only GENERIC EXTERNAL DATA DEPARTMENT Provider, Generic External Data 12/04/2024 Results Follow-Up [facility] [address] [place] [phone] Les Torres MD Lipid Panel, Standard 11/17/2024 10:15 AM EDT Office Visit [facility] [address] [place] [phone] Les Torres MD Healthcare maintenance (Primary Dx); Encounter for vaccination; Encounter for immunization; Dietary counseling; Exercise counseling 11/17/2024 Travel 11/13/2024 Orders Only GENERIC EXTERNAL DATA DEPARTMENT Provider, Generic External Data 11/10/2024 Patient Outreach [facility] [address] [place] [address] Les Torres MD Pre-visit Planning (SDOH negative, [...] 01/06, 01/06/2020, Additional history exists Lipid Panel 12/04/2029 12/04/2024, 08/05/2021 DTaP/Tdap/Td Vaccines (3 - Td or [...] Procedure Name Priority Date/Time Associated Diagnosis Comments T-SPOT(R).TB Routine 12/04/2024 10:01 AM EDT LIPID PANEL, STANDARD Routine 12/04/2024 10:01 AM EDT Healthcare maintenance US BLADDER Routine 11/27/2024 4:01 PM EDT [...] HM COLONOSCOPY Routine 05/10/2022 8:39 AM EDT from Last 3 Months or Most Recently Relevant to Health Maintenance Results * T-SPOT??.TB (12/04/2024 10:01 AM EDT) T Spot TB Negative Negative [facility] Comment:A negative test resu lt does not exclude the possibilityof exposure to or infection with Mycobacteriumtuberculosis (M. tuberculosis). Patients with recentexposure to TB infected individuals exhibiting anegative T-SPOT.TB result should be considered forretesting within 6 weeks or if other relevant clinicalsymptoms indicate. Results from T-SPOT.TB testing mustbe used in conjunction with each individual'sepidemiological history, current medical status,and results of other diagnostic evaluations.The T-SPOT.TB test is qualitative and results arereported as positive, borderline, or negative, giventhat the test controls perform as expected. In linewith the Centers for Disease Control and Prevention's2010 recommendation to report quantitative measurementsalongside the qualitative result, the laboratoryprovides spot counts for informational purposes only.The T-SPOT.TB test should not be interpreted as aquantitative test. TS PANEL A 0 [facility] TS PANEL B 2 [facility] Negative Control Passed [facility] Positive Control Passed [facility] Comment:For additional infor mation, please refer tohttp://education.[employer]/faq/OJV281(This link is being provided for informational/educational purposes only.)THIS TEST WAS PERFORMED AT:[facility] [id number] [place] [address]LPRQQAVIZZY HOWARD MD,PHD 12/04/2024 10:0 1 AM EDT 12/04/2024 10:01 AM EDT us Generic External Data Provider LAB BLOOD ORDERAB LES Final Result Performing Organization Address [facility] Co de Phone Number [facility] [address] [place] [phone] * (ABNORMAL) Lipid Panel, Standard (12/04/2024 10:01 AM EDT) Triglycerides 96 <150 mg/dL [facility] Comment:Desirable Triglyceri de: less than 150 mg/dLBorderline High Triglyceride 150-199 mg/dLHigh Triglyceride: 200-499 mg/dLVery High Triglyceride: greater than or equal to 5OO mg/dL Cholesterol 289(H) <200 mg/dL [facility] Comment:Desirable Cholestero l: less than 200 mg/dLBorderline High Cholesterol: 200-239 mg/dLHigh Cholesterol: greater than 239 mg/dL LDL Cholesterol Calculated 209(H) <100 mg/dL [facility] Comment:Desirable LDL: less than 100 mg/dLNear Optimal/Above Optimal LDL: 110- 129 mg/dLBorderline High LDL: 130-159 mg/dLHigh LDL: 160-189 mg/dLVery High LDL: greater than or equal to 190 mg/dL HDL Cholesterol 61 >40 mg/dL [facility] Comment:Desirable HDL: great er than 40 mg/dL Note: This HDL assay may give artificially low results in patients with liver disease. Blood Venous blood specimen / Unknown 12/04/2024 10:01 AM EDT 12/04/2024 10:01 AM EDT us Les Torres MD LAB BLOOD ORDERABLES Final Resul t Performing Organization Address City/[facility]/ZIP Co de Phone Number [facility] [address] [place] [phone] * US BLADDER (11/27/2024 4:01 PM EDT) Anatomical Region Laterality Modality Abdomen Ultrasound 11/27/2024 4:01 PM EDT Narrative 11/27/2024 4:57 PM EDT [address] [address] Ultrasound Report Signed Patient: Kacy Merritt MR#: [id number] 9 : 1965 Acct:[id number] Age/Sex: 59 / F ADM Date: 11/27/24 Loc: HO.US Attending Dr: Maryanne RAPP Ordering Physician: Maryanne Wells Date of Service: 11/27/24 Procedure(s): US bladder Accession Number(s): [id number] cc: Maryanne Wells; Name,Les GARCIA Reason for [...] 11/27/24 1654 DD/ 1601 TD/TT: 11/27/24 1608 Restaurant Shift Leader: Procedure Note Donotuseinterpreter, Image - 11/27/[address] [address] Ultrasound Report Signed Patient: Lashon MerrittR#: [id number] 9 : 1965Acct:[id number] Age/Sex: 59 / FADM Date: 11/27/24 Loc: HO.US Attending Dr: Maryanne RAPP Ordering Physician: Maryanne Wells Date of Service: 11/27/24 Procedure(s): US bladder Accession Number(s): [id number] cc: Maryanne Wells [facility]-; Name,Les GARCIA Reason for Exam: Microscopic hematuria [...] MD 11/27/2024 04:54 PM EDT RP Workstation: [id number] Dictated By: Frandy Garcia MD Signed By: <Electronically signed by Frandy Garcia MD in OV> 11/27/24 1654 DD/ 1601 TD/TT: 11/27/24 1608 Restaurant Shift Leader: us [facility] External Provider IMG US PROCEDURES Edited Result - Final * US Pelvis Transvaginal (11/25/2024 12:18 AM EDT) Anatomical Region Laterality Modality Pelvis Ultrasound 11/25/2024 12:1 8 AM EDT Narrative 11/25/2024 12:21 AM EDT [place] [address] Ultrasound Report Signed Patient: Kacy Merritt MR#: [id number] 9 : 1965 Acct:[id number] Age/Sex: 59 / F ADM Date: 11/21/24 Loc: HO.US Attending Dr: Genny White CNM Ordering Physician: Genny White CNM Date of Service: 11/21/24 Procedure(s): US pelvic and transvaginal Accession Number(s): [id number] cc: Vidhya Padilla HOLE DIGGER; Genny White CNM Reason for Exam: R19.00 - Intra-abdominal and pelvic swelling, mass and lump, unspecified... CLINICAL HISTORY: R19.00 - Intra-abdominal and pelvic swelling, mass and lump, unspecified... US pelvis transabdominal and transvaginal Comparison: None provided Findings: Transabdominal scanning performed for overall anatomy. Transvaginal scanning performed for additional detail. Urinary bladder is jgbb-xd-fzvedjglvb distended on the transabdominal images. Uterus is [...] Bates MD in OV> 11/25/24 0019 DD/ TD/TT: 11/25/2417 Restaurant Shift Leader: Procedure Note Donotuseinterpreter, Image - 11/25/2024 [place] [address] Ultrasound Report Signed Patient: Meghan Merritt#: [id number] 9 : 1965Acct:[id number] Age/Sex: 59 / FADM Date: 11/21/24 Loc: HO.US Attending Dr: Genny White CNM Ordering Physician: Genny White CNM Date of Service: 11/21/24 Procedure(s): US pelvic and transvaginal Accession Number(s): [id number] cc: Vidhya Padilla HOLE DIGGER; Genny White CNM Reason for Exam: R19.00 - Intra-abdominal and pelvic swelling, mass andlump, unspecified... CLINICAL HISTORY: R19.00 - Intra-abdominal and pelvic swelling, mass andlump, unspecified... US pelvis transabdominal and transvaginal Comparison: None provided Findings: Transabdominal scanning performed for overall anatomy. Transvaginal scanning performed for additional detail. Urinary bladder is jayw-dq-pxqribfmst distended on the transabdominal images. Uterus is [...] Bates MD in OV> 11/25/24 0019 DD/ 001 TD/TT: 11/25/24 001 Restaurant Shift Leader: us [facility] External Provider IMG US PROCEDURES Edited Result - Final * Hematoxylin and Eosin Stain (11/13/2024 1:11 PM EDT) 11/13/2024 1:11 PM EDT 11/13/2024 2:52 PM EDT [facility] - 11/18/2024 8:47 AM EDT ----- ------- Name: Kacy Merritt Age/Sex: 59/F : 1965 Unit#: [id number] Attend Dr: Gosia Sheehan MD Re11/13/[address] [facility] Location: [facility] Disch: ----- ------- SPEC : [id number] RECD: 11/13/24 STATUS: DENNIS BARKER NUM: [id number] TARA: 11/13/24 [facility] DR: Gosia Sheehan MD ENTERED: 11/13/24 SP TYPE: Surgical OTHR DR: Vidhya Padilla NP ORDERED: HE Stain/18, Gross Micro L4/6 Diagnosis [...] Name: Kacy Merritt Age/Sex: 59/F : 1965 [id number]#: [id number] Attend Dr: Gosia Sheehan MD Re11/13/24 Status: [facility] Location: [facility] Disch: ----- ------- SPEC : [id number] RECD: 11/13/24581 STATUS: DENNIS BARKER NUM: [id number] TARA: 11/13/24-1310 [facility] DR: Gosia Sheehan MD ENTERED: 11/13/24-0190 SP TYPE: Surgical OTHR DR: Vidhya Padilla HOLE DIGGER ORDERED: HE Stain/18, Gross Micro L4/6 Gross [...] microscopic examination, 3 pieces in cassette F. ([facility]) IHC S/NG Disclaimer NOTE: Unless otherwise stated, all tissue is formalin-fixed and paraffin-embedded. Some or all of the immunohistochemical tests reported herein may have been developed and their performance characteristics determined by [facility]. They have not been cleared or approved by the U.S. Food and Drug Administration (FDA). However, the FDA has determined that such clearance or approval is not necessary. This laboratory is certified under the Clinical Laboratory Improvement Amendments of 1988 (CLIA) as qualified to perform high complexity clinical laboratory testing. Copies To: Vidhya Padilla NP [address] [id number] Gosia Sheehan MD [facility] [address] [place] [phone] CONTINUED ON NEXT PAGE ----- ------- Name: Kacy Merritt Age/Sex: 59/F : 1965 Unit#: [id number] Attend Dr: Gosia Sheehan MD Re11/13/24 Status: [facility] Location: [facility] Disch: ----- ------- SPEC : [id number] RECD: 11/13/24086 STATUS: DENNIS BARKER NUM: [id number] TARA: 11/13/24-[address]: Gosia Sheehan MD ENTERED: 11/13/246746 SP TYPE: Surgical OTHR DR: Vidhya Padilla NP ORDERED: HE Stain/18, Gross Micro L4/6 ----- ------- Signed (signature on file) Randy Zaman MD 11/18/24 0847 ----- ------- END OF REPORT Generic External Data Provider LAB BLOOD ORDERAB LES Final Result Performing Organization Address [facility] Co de Phone Number [facility] [address] [place] [phone] * CDiff Gene PCR (11/13/2024 1:02 PM EDT) Only the most recent of2 resultswithin the time period is included. CDiff Gene PCR NEGATIVE Negative [facility] Comment:If C. difficile stro ngly suspected despite one negativetest, a second test may be sent vs. empiric treatment forC. difficile infection. 11/13/2024 1:02 PM EDT 11/13/2024 1:12 PM EDT Generic External Data Provider LAB BODY FLUIDS A ND STOOLS ORDERABLES Final Result Performing Organization Address [facility]/ZIP Co de Phone Number [facility] [address] [place] [phone] [phone] * Gastrointestinal panel (11/13/2024 1:02 PM EDT) Only the most recent of2 resultswithin the time period is included. Campylobacter Not Detected Not Detect. [facility] Plesiomonas shigelloides Not Detected Not Detect. [facility] Salmonella Not Detected Not Detect. [facility] Vibrio Not Detected Not Detect. [facility] Vibrio cholerae Not Detected Not Detect. [facility] YERSINIA ENTEROCOLITICA Not Detected Not Detect. [facility] Enteroaggregative E. coli (EAEC) Not Detected Not Detect. [facility] Enteropathogenic E. coli (EPEC) Not Detected Not Detect. [facility] Enterotoxigenic E. coli (ETEC) lt/st Not Detected Not Detect. [facility] Shiga-like toxin-producing E. coli (STEC) stx1/stx2 Not Detected Not Detect. [facility] E coli O157 Not applicable Not Detect. [facility] Comment:E. coli containing t he O157 antigen are a subset ofShiga-like toxin- producing E. coli (STEC). Shigella/Enteroinvasive E. coli (EIEC) Not Detected Not Detect. [facility] Cryptosporidium Not Detected Not Detect. [facility] Cyclospora cayetanensis Not Detected Not Detect. [facility] Entamoeba histolytica Not Detected Not Detect. [facility] Giardia lamblia Not Detected Not Detect. [facility] Adenovirus F 40/41 Not Detected Not Detect. [facility] Astrovirus Not Detected Not Detect. [facility] Norovirus GI/GII Not Detected Not Detect. [facility] Rotavirus A Not Detected Not Detect. [facility] Sapovirus Not Detected Not Detect. [facility] Comment: All results must be [...] assay is performed by Multiplexed PCR, utilizing [place] [employer]. 11/13/2024 1:02 PM EDT 11/13/2024 1:12 PM EDT us Generic External Data Provider LAB MICROBIOLOGY - GENERAL ORDERABLES Final Result Performing Organization Address [facility] Co de Phone Number [facility] [address] [place] [phone] * Lactoferrin, Quantitative, Stool (11/13/2024 1:02 PM EDT) Lactoferrin, Qn, Stool <6.25 <7.25 mcg/mL [facility] Comment:The following patien t samples should be excluded from use inthe test: patients with a history of HIV and/or havehepatitis B or C, patients with a history of infectiousdiarrhea (within 6 months), and patients having had acolostomy and or ileostomy within 1 month.THIS TEST WAS PERFORMED AT:[facility] [id number] [place] [address]HTOJXSORAYA HERNANDEZ MD,PHD,KEVIN 11/13/2024 1:02 PM EDT 11/13/2024 1:12 PM EDT Generic External Data Provider LAB BODY FLUIDS A ND STOOLS ORDERABLES Final Result Performing Organization Address [facility] Co de Phone Number [facility] [address] [place] [phone] * US Renal Complete (10/09/2024 9:52 AM EDT) Anatomical Region Laterality Modality Kidney Ultrasound 10/09/2024 9:52 AM EDT Narrative 10/09/2024 11:00 AM EDT [address] [address] Ultrasound Report Signed Patient: Kacy Merritt MR#: [id number] 9 : 1965 Acct:[id number] Age/Sex: 59 / F ADM Date: 10/09/24 Loc: HO.US Attending Dr: Maryanne RAPP Ordering Physician: Maryanne Wells Date of Service: 10/09/24 Procedure(s): US renal BI Accession Number(s): [id number] cc: Vidhya Padilla HOLE DIGGER; Maryanne Wells Reason for Exam: R31.29 - [...] 10/09/24 1057 DD/ 0952 TD/TT: 10/09/24 0959 Restaurant Shift Leader: Procedure Note Donotuseinterpreter, Image - 10/09/2024 [place] [address] Ultrasound Report Signed Patient: Meghan Merritt#: [id number] 9 : 1965Acct:[id number] Age/Sex: 59 / FADM Date: 10/09/24 Loc: HO.US Attending Dr: Maryanne RAPP Ordering Physician: Maryanne Wells Date of Service: 10/09/24 Procedure(s): US renal BI Accession Number(s): [id number] cc: Vidhya Padilla HOLE DIGGER; Maryanne Wells Reason for Exam: R31.29 - [...] Jose Villafuerte MDin OV> 10/09/24 1057 DD/ TD/TT: 10/09/24 0959 Restaurant Shift Leader: us [facility] External Provider IMG US PROCEDURES Final Result * (ABNORMAL) Urinalysis, Complete, with Reflex to Culture (10/02/2024 3:25 PM EDT) Color Urine Yellow [facility] Appearance Urine Clear [facility] PH 5.0 5.0 - 9.0 [facility] Glucose Urine UA Negative Negative mg/dL [facility] Urine Blood Trace(A) Negative [facility] Specific [place] - Urine 1.025 1.005 - 1.025 [facility] Urine Protein Trace Neg-Trace mg/dL [facility] Urine Ketones Trace Negative mg/dL [facility] Nitrite Urine Negative Negative [facility] Leukocyte Esterase Urine Negative Negative [facility] RBC Urine 0-2 0 - 2 /HPF [facility] Urine WBC 0-5 0 - 5 /HPF [facility] Urine Squamous Epithelial Cell 3-5 0 - 2 /HPF [facility] Urine Bacteria 1+ None Seen [facility] Hyaline Casts, Urine 3-5 0 - 2 /LPF [facility] 10/02/2024 3:25 PM EDT 10/02/2024 3:28 PM EDT Narrative [facility] - 10/02/2024 3:46 PM EDT Urine, Clean Catch Generic External Data Provider LAB URINE ORDERAB LES Final Result [facility] [address] [place] [phone] * CT Abdomen Pelvis w/ Contrast (10/02/2024 1:40 PM EDT) Anatomical Region Laterality Modality Body, Pelvis, Abdomen Computed T omography 10/02/2024 1:40 PM EDT Narrative 10/02/2024 3:19 PM EDT [address] [address] [address] Scan Report Signed Patient: Kacy Merritt MR#: [id number] 9 : 1965 Acct:[id number] Age/Sex: 59 / F ADM Date: 10/02/24 Loc: HO.ED Attending Dr: Ordering Physician: Nell Reyes DO Date of Service: 10/02/24 Procedure(s): CT abdomen pelvis w IV con Accession Number(s): [id number] cc: Vidhya Padilla HOLE DIGGER; Nell Reyes DO Report Number: [id number]: Total DLP = 624.00 mGy-cm EXAMINATION: CT [...] 10/02/24 1516 DD/ 1340 TD/TT: 10/02/24 1505 Restaurant Shift Leader: Procedure Note Donotuseinterpreter, Image - 10/02/[address] [address] [address] Scan Report Signed Patient: Meghan Merritt#: [id number] 9 : 1965Acct:[id number] Age/Sex: 59 / FADM Date: 10/02/24 Loc: .ED Attending Dr: Ordering Physician: Nell Reyes DO Date of Service: 10/02/24 Procedure(s): CT abdomen pelvis w IV con Accession Number(s): [id number] cc: Vidhya Padilla HOLE DIGGER; Nell Reyes DO Report Number: [id number]: Total DLP = 624.00 mGy-cm EXAMINATION: CT [...] Fawad Pearson MD 10/02/2024 03:16 PM EDT RP Dictated By: Fawad Pearson MD Signed By: <Electronically signed by Fawad Pearson MD in OV> 10/02/24 1516 DD/ 1340 TD/TT: 10/02/24 1505 Restaurant Shift Leader: [facility] External Provider IMG CT PROCEDURES Final Result * (ABNORMAL) CBC auto differential (10/02/2024 10:03 AM EDT) White Blood Count 6.7 4.8 - 10.8 X10*3/uL [facility] Red Blood Count 4.52 4.20 - 5.50 X10*6/uL [facility] Hemoglobin 12.1 12.0 - 16.0 g/dl [facility] Hematocrit 38.2 37.0 - 47.0 % [facility] Mean Corpuscular Volume 84.5 80.0 - 98.0 fL [facility] Mean Corpuscular Hemoglobin 26.8(L) 27.0 - 33.0 pg [facility] Mean Corpuscular HGB Conc 31.7 31.0 - 35.0 g/dl [facility] Red Cell Distribution Width 13.7 11.0 - 16.0 % [facility] Platelet Count 324 160 - 400 X10*3/uL [facility] Mean Platelet Volume 9.3(L) 9.4 - 12.3 fL [facility] Neutrophils Percent Auto 47.6 45 - 73 % [facility] Imm Gran Pct Auto 0.1 0.0 - 0.4 % [facility] Lymphocytes Percent Auto 42.4(H) 20 - 40 % [facility] Monocytes Percent Auto 8.0 2 - 11 % [facility] Eosinophils Percent Auto 1.3 0 - 4 % [facility] Basophils Percent Auto 0.6 0 - 2 % [facility] NRBC Pct Auto 0.0 0.0 - 0.2 /100WBC [facility] Neutrophils Absolute Auto 3.2 2.0 - 8.3 x10*3/uL [facility] Imm Gran Abs Auto 0.01 0.00 - 0.03 X10*3/uL [facility] Lymphocytes Absolute Auto 2.9 1.2 - 4.9 X10*3/uL [facility] Monocytes Absolute Auto 0.5 0.1 - 1.2 X10*3/uL [facility] Eosinophils Absolute Auto 0.1 0.0 - 0.4 X10*3/uL [facility] Basophils Absolute Auto 0.0 0.0 - 0.2 X10*3/uL [facility] NRBC Abs Auto 0.000 0.0 - 0.012 X10*3/uL [facility] 10/02/2024 10:0 3 AM EDT 10/02/2024 10:06 AM EDT us Generic External Data Provider LAB BLOOD ORDERAB LES Final Result Performing Organization Address [facility]/ZIP Co de Phone Number [facility] [address] [place] [phone] * Magnesium (10/02/2024 10:03 AM EDT) Magnesium 2.2 1.6 - 2.6 mg/dL [facility] 10/02/2024 10:0 3 AM EDT 10/02/2024 10:06 AM EDT us Generic External Data Provider LAB BLOOD ORDERAB LES Final Result Performing Organization Address City/[facility]/ZIP Co de Phone Number [facility] [address] [place] [phone] * Lipase (10/02/2024 10:03 AM EDT) Pathologist [facility] Lipase 39 8 - 78 U/L [facility] 10/02/2024 10:0 3 AM EDT 10/02/2024 10:06 AM EDT Generic External Data Provider LAB BLOOD ORDERAB LES Final Result Performing Organization Address [facility]/ZIP Co de Phone Number [facility] [address] [place] [phone] * Hepatic Function Panel (10/02/2024 10:03 AM EDT) [facility] Bilirubin, Total 0.3 0.0 - 1.0 mg/dL [facility] Bilirubin, Direct 0.1 0.0 - 0.5 mg/dL [facility] Aspartate Amino Transferase 22 5 - 31 U/L [facility] Alanine Aminotransferase 22 0 - 31 U/L [facility] Total Protein 7.6 6.5 - 8.0 g/dL [facility] Albumin Level 4.6 3.5 - 5.0 g/dL [facility] Alkaline Phosphatase 70 39 - 117 U/L [facility] 10/02/2024 10:0 3 AM EDT 10/02/2024 10:06 AM EDT Generic External Data Provider LAB BLOOD ORDERAB LES Final Result Performing Organization Address [facility]/ZIP Co de Phone Number [facility] [address] [place] [phone] * (ABNORMAL) Basic Metabolic Panel (10/02/2024 10:03 AM EDT) Pathologist [facility] Sodium 138 135 - 145 mmol/L [facility] Potassium 4.8 3.3 - 5.1 mmol/L [facility] Chloride 105 96 - 108 mmol/L [facility] Carbon Dioxide 28 22 - 29 mmol/L [facility] Anion Gap 10(L) 12 - 20 [facility] Urea Nitrogen (BUN) 18(H) 9 - 16 mg/dL [facility] Creatinine, Serum 0.85 0.5 - 1.4 mg/dL [facility] Creatinine Clr Calc Pharmacy 69.5 [facility] Comment:Provided height and weight: 162.56 cm,74.5 kg.eGFR (calculated from the MDRD study equation) and eCrCl(calculated from the Cockcroft-Gault equation) are based ondifferent parameters and may not yield comparable results.If eCrCl result is absurd, please check patient'sheight/weight. Estimated Glomerular Filt Rate >60 [facility] Comment:Chronic Kidney Disea se: Estimated GFR < 60 mL/min/1.91k5Qrijcr Kidney Disease: Estimated GFR < 15 mL/min/1.73m2 Glucose 99 60 - 115 mg/dL [facility] Calcium 9.4 8.4 - 10.2 mg/dL [facility] 10/02/2024 10:0 3 AM EDT 10/02/2024 10:06 AM EDT us Generic External Data Provider LAB BLOOD ORDERAB LES Final Result [facility] [address] [place] [phone] * Bacterial Vaginosis (10/02/2024 8:16 AM EDT) TRICHOMONAS VAGINALIS DETECTION BY PCR NOT DETECTED Not Detect [facility] BACTERIAL VAGINOSIS DETECTION BY PCR NEGATIVE Negative [facility] Comment:The BV organism targ ets [...] DETECTION BY PCR NOT DETECTED Not Detect [facility] Heather glab krusei PCR NOT DETECTED Not Detect [facility] 10/02/2024 8:16 AM EDT 10/02/2024 2:10 PM EDT Generic External Data Provider LAB MICROBIOLOGY - GENERAL ORDERABLES Final Result Performing Organization Address City/[facility] Co de Phone Number [facility] [address] [place] [phone] * Culture, Urine, Routine (10/02/2024 8:16 AM EDT) Urine Urine specimen obtained by clean catch procedure / Unknown 10/02/2024 8:16 AM EDT 10/02/2024 2:10 PM EDT Comment:UACC Narrative [facility] - 10/03/2024 9:10 AM EDT Urine Culture No growth. Specimen Source: Urine clean catch Generic External Data Provider LAB MICROBIOLOGY - GENERAL ORDERABLES Final Result Performing Organization Address [facility] de Phone Number [facility] [address] [place] [phone] * BI Mammogram Screening Tomosynthesis Bilateral (03/10/2024 12:48 PM EST) Anatomical Region Laterality Modality Breast Bilateral Mammography 03/10/2024 12:4 8 PM EST Narrative 03/16/2024 5:47 PM EST [facility] [address] [place] [address] Mammography Report Signed Patient: Kacy Merritt MR#: [id number] 9 : 1965 Acct:[id number] Age/Sex: 58 / F ADM Date: 03/10/24 Loc: HO.MAMMO Attending Dr: Vidhya Padilla NP Ordering Physician: Vidhya Padilla NP Results: 1Negativ e Date of Service: 03/10/24 Follow Up: 1 Year From Orig inal Mammogram Procedure(s): MM tomosynthesis screening BI Accession Number(s): [id number] cc: Vidhya Padilla HOLE DIGGER EXAMINATION: MM SCREENING DIGITAL BREAST TOMOSYNTHESIS, BILATERAL [...] by: Daiana Segal DO 03/16/2024 05:44 PM [facility] Dictated By: Daiana Segal DO Signed By: <Electronically signed by Daiana Segal DO in OV> 03/16/24 1744 DD/ 1248 TD/TT: 03/10/24 1308 Restaurant Shift Leader: Procedure Note Donotuseinterpreter, Image - 03/16/2024 [facility] [address] [place] [address] Mammography Report Signed Patient: Meghan Merritt#: [id number] 9 : 1965Acct:[id number] Age/Sex: 58 / FADM Date: 03/10/24 Loc: MAMMO Attending Dr: Vidhya Padilla HOLE DIGGER Ordering Physician: Vidhya Padilla NPResults: 1Negativ e Date of Service: 03/10/24Follow Up: 1 Year From Orig inal Mammogram Procedure(s): MM tomosynthesis screening BI Accession Number(s): [id number] cc: Botas,Vidhya HOLE DIGGER EXAMINATION: MM SCREENING DIGITAL BREAST TOMOSYNTHESIS, BILATERAL [...] 03/16/24 1744 DD/ 1248 TD/TT: 03/10/24 1308 Restaurant Shift Leader: Vidhya Padilla DISTRIBUTION WAREHOUSE MANAGER IMG BI PROCEDURES Edited Result - Final * Hepatitis Panel, General (03/14/2023 10:20 AM EST) Hepatitis A IgM Nonreactive Nonreactive [facility] Comment:IgM antibodies to QUEZADA V not detected; does not exclude earlyacute or recovered HAV infection. ~Hepatitis B Surface Antibody NONREACTIVE Nonreactive [facility] Comment:Nonreactive: < 8.00 mIU/mL Hepatitis B Core Antibody Nonreactive Nonreactive [facility] Hepatitis C Antibody Nonreactive Nonreactive [facility] Comment:Antibodies to HCV no t detected; does not exclude early acuteHCV infection. Hepatitis B Surface Ag Negative Negative [facility] 03/14/2023 10:2 0 AM EST 03/14/2023 10:26 AM EST Generic External Data Provider LAB BLOOD ORDERAB LES Final Result [facility] [address] [place] [phone] * Colonoscopy (05/10/2022 8:39 AM EDT) Colonoscopy Normal Normal Narrative Shanice Perez - 05/10/2022 8:39 AM EDT Recommended 3 year follow up ([facility]) us Historical Provider HEALTH MAINTENANCE Edited Result - Final from Last 3 Months or Most Recently Relevant to Health Maintenance Insurance [facility] C3 Care Teams Dry Talc Racker Relationship Specialty Start Date End Date Name, MD Les [address] [place] [address] PCP - General Internal Medicine 10/09/23
--- OUTSIDE RECORDS SUMMARY | 2024-12-16 14:44 | XMS_ITS | Encounter Summary ---
Author Organization [employer] Address [address] [place] [address] [address] [place] [address] Care Team Providers Care Online Program Coordinator Name Role Phone Vidhya Padilla Primary Care Provider [phone] Name, Les GARCIA Primary Care Provider [phone] Encounter Details Date Type Department Care Team (Late st Contact Info) Description 03/21/2022 Orders Only [facility] [address] [place] [address] Vidhya Padilla FNP [address] [place], [place] [phone] Sigmoid diverticulitis (Primary Dx) Social History Tobacco [...] hemorrhage) documented in this encounter Care Teams Online Program Coordinator Relationship Specialty Start Date End Date Vidhya Paidlla FNP [address] [place] [address] PCP - General Family Medicine 02/07/22 10/08/23 Name, MD Les [address] [place] [address] PCP - General Internal Medicine 10/09/23 documented as of this encounter
--- OUTSIDE RECORDS SUMMARY | 2024-12-16 14:44 | XMS_ITS | Clinical Summary ---
Author Organization [facility] Address [address] [place] [address] Care Team Providers Care Cribber Name Role Phone Melyssa Alonso MD Primary Care Provider [phone] Allergies Active Allergy Reactions Criticality Noted Date [...] Zoster (Zostavax) Discontinued Procedures * Due to [place] [employer] law, this organization might not be sharing negative HIV tests. Procedure Name Priority Date/Time Associated Diagnosis Comments COMPREHENSIVE EYE EXAM 07/15/2020 from Last 3 Months or Most Recently Relevant to Health Maintenance Results * Due to [place] [employer] law, this organization might not be sharing negative HIV tests. * COMPREHENSIVE EYE EXAM (07/15/2020) Fawad VALENCIA PROCEDURE Final Result from Last 3 Months or Most Recently Relevant to Health Maintenance Insurance MEDICAID MEDICAID Care Teams Cribber Relationship Specialty Start Date End Date Melyssa Alonso MD [address] [address] PCP - General Internal Medicine 07/15/20
--- OUTSIDE RECORDS SUMMARY | 2024-12-16 14:44 | XMS_ITS | Encounter Summary ---
Author Organization [employer] Address [address] [facility] 7 [place] [address] Care Team Providers Care Consultant Name Role Phone Name, Les GARCIA Primary Care Provider [phone] Reason for Visit * Reason Onset Date Comments Medication Question 12/16/2024 Encounter Details Date Type Department Care Team ([facility] st Contact Info) Description 12/16/2024 Telephone [facility] MEDICINE [address] [place] [address] Name, MD Les [address] [place] [address] Medication Question Social History Tobacco Use Types Packs/Day Years [...] encounter Miscellaneous Notes * Telephone Encounter - Natalia Levy RN - 12/16/2024 2:15 PM EST Images from the original note were not included. TC placed to pt via [employer] monomer recovery operator (ID#[id number]) to inform and advise of below PCP message. Advised pt PCP would like for her to stop the atorvastatin and drink plenty of fluids. Advised we will contact her tomorrow for status check to see how she is doing. Pt verbalized understanding and denies questions at this time. Message sent to [place] team nurses for status check tomorrow 12/17/24. Les Torres MD EN 12/16/24 12:10 PM Note Have her stop the med first. Call her to see how she is feeling tomorrow, encourage to drink plentyof fluids * Telephone Encounter - Constance Bowman - 12/16/2024 1:57 PM EST Tc from pt retuning call * Telephone Encounter - Natalia Levy RN - 12/16/2024 1:15 PM EST Images from the original note were not included. TC placed to pt via [employer] monomer recovery operator (ID#[id number]) to inform and advise of below PCP message. Connectedwith patient and explained that PCP would like for her to stop the atorvastain med first. Advised pt to stay well hydrated and drink lots of fluids. Advised we will call tomorrow to see how she is doing. Communications Superintendent disconnected from the call before hearing pt response. TC x 2 placed to pt via BLS monomer recovery operator (ID#[id number]). No answer, LVM to call office back and ask to speak to the blue team nurses.Will task for re-attempt tomorrow 12/17/24 to contact pt to advise of message and status check. Les Torres MD EN 12/16/24 12:10 PM Note Have her stop the med first. Call her to see how she is feeling tomorrow, encourage to drink plentyof fluids * Telephone Encounter - Les Torres MD - 12/16/2024 12:09 PM EST Have her stop the med first. Call her to see how she is feeling tomorrow, encourage to drink plentyof fluids * Telephone Encounter - Natalia Levy RN - 12/16/2024 11:56 AM EST TC placed to pt via [employer] monomer recovery operator (ID#[id number]) regarding request for call back regarding medicationas pt stated that atorvastatin (Lipitor) 20 mg tablet is not working well for her and is requestingan alternative medication. Patient report they have stomach pain and vomiting with taking the medication. Pt reports changing the time they were taking the medication, but they still experience stomach pain and vomiting no matter what time medication is taken. Message forwarded to PCP for review. * Telephone Encounter - Constance Bowman - 12/16/2024 9:39 AM EST TC from patient requesting a call back regarding medication. Patient stated that atorvastatin (Lipitor) 20 mg tablet is not working well for her and is requesting an alternative medication. Contact pt at [phone] documented in this encounter Plan of Treatment Not on file documented as of this encounter Visit Diagnoses Not on filedocumented in this encounter Additional Health Concerns Assessment Noted Time PHQ-9 Depression Total Score: 9 11/18/19 25 11:31 AM EDT documented as of this encounter Care Teams Consultant Relationship Specialty Start Date End Date Name, MD Les [address] [place] [address] PCP - General Internal Medicine 10/09/23 documented as of this encounter
--- OUTSIDE RECORDS SUMMARY | 2024-12-16 14:44 | XMS_ITS | Encounter Summary ---
Author Organization [facility] Address [address] [place] [address] Care Team Providers Care Ice Plant Operator Name Role Phone Melyssa Alonso MD Primary Care Provider [phone] Encounter Details Date Type Department Care Team (Late st Contact Info) Description 01/10/2021 Orders Only [facility] [address] [place] [phone] Rehan Gerard, RN [address] [place] [phone] Medications Social History Tobacco Use Types Packs/Day [...] on filedocumented in this encounter Care Teams Ice Plant Operator Relationship Specialty Start Date End Date Melyssa Alonso MD [facility] [address] [place] [address] PCP - General Internal Medicine 07/15/20 documented as of this encounter
--- OUTSIDE RECORDS SUMMARY | 2024-12-16 14:44 | XMS_ITS | Encounter Summary ---
Author Organization [employer] Address [address] [place] [address] 7[address] [place] [address] Care Team Providers Care Swat Team Member Name Role Phone Vidhya Padilla Primary Care Provider [phone] Name, Les GARCIA Primary Care Provider [phone] Reason for Visit * Reason Comments Med Change Request Encounter Details Date Type Department Care Team ([facility] st Contact Info) Description 08/02/2022 Refill [facility] MED[facility]INE [address] [place] [address] Vidhya Padilla FNP [address] [place] [address] Social History Tobacco Use Types Packs/Day Years [...] documented as of this encounter Care Teams Swat Team Member Relationship Specialty Start Date End Date Vidhya Padilla FNP [address] [place] [address] PCP - General Family Medicine 02/07/22 10/08/23 Name, MD Les [address] [place] [address] PCP - General Internal Medicine 10/09/23 documented as of this encounter
--- OUTSIDE RECORDS SUMMARY | 2024-12-16 14:44 | XMS_ITS | Encounter Summary ---
Author Organization [employer] Address [address] [facility] 7t [place] [address] Care Team Providers Care Swager Operator Name Role Phone Vidhya Padilla Primary Care Provider [phone] Name, Lse GARCIA Primary Care Provider [phone] Reason for Visit * Reason Onset Date Comments Referral 03/01/2022 Encounter Details Date Type Department Care Team (Late st Contact Info) Description 03/01/2022 Telephone [facility] MEDICINE [address] [place], [place] [phone] Vidhya Padilla FNP [address] [place], [place] [phone] Referral Social History Tobacco Use Types Packs/Day [...] 03/01/2022 2:52 PM EST Telephone call to [facility] urology in regards to pt's referral. Pt needs referral for cyst in kidney andabdominal pain per [facility]. N28.1 and R10.9 respectively. * Telephone Encounter - Nolan Carlisle - 03/01/2022 9:03 AM EST Tc from pt [facility]. Pt states she received a call and she was advised to request a referral do to something in her Left Kidney. Rn Sane was attempting togather details, pt was unable to provide details. [facility] [address] [place] [address] If any questions please contact pt at [phone] documented in this encounter Plan of Treatment Not on file documented as of this encounter Visit Diagnoses Diagnosis Renal cyst- Primary Unspecified congenital cystic kidney disease documented in this encounter Care Teams Swager Operator Relationship Specialty Start Date End Date Vidhya Padilla FNP [address] [place] [phone] PCP - General Family Medicine 02/07/22 10/08/23 Name, MD Les [address] [place] [address] PCP - General Internal Medicine 10/09/23 documented as of this encounter
--- OUTSIDE RECORDS SUMMARY | 2024-12-16 14:44 | XMS_ITS | Clinical Summary ---
Author Organization [facility] Address [address] [place] [address] Care Team Providers Care Nuclear Fuel Processing Technician Name Role Phone Vidhya Padilla SALES REPRESENTATIVE Primary Care Provider [phone] Allergies Active Allergy Reactions Criticality Noted [...] Encounters Date Type Department Care Team Description 12/05/2024 10:00 AM EDT Follow-Up [facility] A [address] [place] [address] Patsy Le MD Bilateral occipital neuralgia (Primary Dx); Cervical facet joint syndrome 10/15/2024 10:03 AM EDT - 10/15/2024 11:59 PM EDT Hospital Encounter [facility] [address] [place] [address] Patsy Le MD Bilateral occipital neuralgia (Primary Dx) Discharge Disposition: Home or Self Care () 10/03/2024 Refill [facility] Neurology [address] [place] [address] Mary Maria MD 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; Dizziness; Muscle tension headache 09/30/2024 8:33 AM EDT - 09/30/2024 11:59 PM EDT Hospital Encounter [facility] [address] [place] [address] Giovany Machado MD Georges, Patrick 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 (Primary Dx) Discharge Disposition: Home or Self Care () 09/30/2024 Orders Only [facility] [address] [place] [address] Giovany Machado MD 09/30/2024 Orders Only [facility] B [address] [place] [address] Patsy Le MD Bilateral occipital neuralgia (Primary [...] Info) Description 01/12/2025 9:00 AM EST Appointment [facility] [address] [place] [address] Giovany Machado MD [address] [place] [address] Tong Shultz RT(R) 02/09/2025 9:00 AM EST Follow-Up [facility] [address] [place] [address] Mary Maria MD [address] [place] [address] Health Maintenance Due Date Last Done Comments Cervical Cancer Screening 1965 Cologuard 1965 Colon Cancer Screening 1965 Colonoscopy 1965 FOBT / Fit Test 1965 HIV Screening 1965 HPV and Pap Smear 1965 Hepatitis C Screening 1965 Pap Smear 1965 Sigmoidoscopy 1965 Mammogram 01/26/2023 01/26/2021, 12/06, 11/15/2017 Alcohol/Substance Use Screening 02/06/2024 Depression Screening and Follow-Up 02/06/2024 Social Drivers of Health Annual Screening 02/06/2024 Basic Metabolic Panel 10/02/2025 10/02/2024 , 11/07/2023, 03/14/2023 Diabetes Screening 10/03/2027 10/02/2024, 1 , 03/14/2023, Additional history exists DTaP,Tdap,and Td Vaccines (3 - Td or Tdap) 07/20/2031 07/19/2021, 09/01/2010 RSV Vaccine (60+ years old and patients) (1 - 1-dose 75+ series) 05/20/2039 Zoster Vaccines Completed 10/18/2021, 07/19/2021 COVID-19 Vaccine Completed 11/17/2024, 12/2021, 12/29/2020, Additional history exists Influenza Vaccine Completed 11/17/2024, , 11/17/2021, Additional history exists Pneumococcal Vaccine: 50+ Years Completed 11/17/2024 Hepatitis B Vaccines Aged Out No long er eligible based on patient's age to complete this topic Procedures * Due to [place] [employer] law, this organization might not be sharing negative HIV tests. Procedure Name Priority Date/Time Associated Diagnosis Comments OR INJECT NERV BLCK,GREAT OCCIPTL Routine 10/15/2024 10:15 AM EDT Bilateral occipital neuralgia GLUCOSE, RANDOM Routine 07/18/2018 11:28 AM EDT Optic nerve swelling Migraine aura, persistent, intractable from Last 3 Months or Most Recently Relevant to Health Maintenance Results * Due to [place] [employer] law, this organization might not be sharing negative HIV tests. * OR INJECT NERV BLCK,GREAT OCCIPTL (10/15/2024 10:15 AM [...] Patient's understanding of procedure matches consent: Yes [place] Protocol: Procedure consent matches procedure scheduled: Yes [...] outpatient to the ambulatory injection suite at [facility]. Vital signs were monitored before and after [...] - 99 mg/dL 07/18/2018 12:01 PM EDT [facility] Blood specimen (specimen) Structure of peripheral vein / Unknown Venipuncture / Unknown 07/18/2018 11:28 AM EDT 07/18/2018 11:35 AM EDT Mary Maria MD LAB BLOOD ORDERABLES Final Resul t [facility] [address] [place] [address], [place] from Last 3 Months or Most Recently Relevant to Health Maintenance Insurance [employer] Care Teams Nuclear Fuel Processing Technician Relationship Specialty Start Date End Date Vidhya Padilla NP [address] [place] [address] PCP - General Family Medicine 07/27/22
--- OUTSIDE RECORDS SUMMARY | 2024-12-16 14:44 | XMS_ITS | Encounter Summary ---
Author Organization [employer] Address [address] [place] [address] 7[address] [place] [address] Care Team Providers Care International Bank Manager Name Role Phone Claribel Grissom MD Primary Care Provider Vidhya Parker Primary Care Provider [phone] Les Torres MD Primary Care Provider [phone] Encounter Details Date Type Department Care Team (Late st Contact Info) Description 01/25/2022 Telephone [facility] MEDICINE [address] [place], [place] [phone] Claribel Grissom MD Social History Tobacco Use [...] filedocumented in this encounter Care Teams International Bank Manager Relationship Specialty Start Date End Date Claribel Grissom MD PCP - General Family Medicine 12/09/18 02/06/22 Vidhya Padilla FNP [address] [place] [address] PCP - General Family Medicine 02/07/22 10/08/23 Name, MD Les [address] [place] [address] PCP - General Internal Medicine 10/09/23 documented as of this encounter
== END 2024-12-16 13:57 | disposition home or self-care (01) ==
LOC: HO.HUSH 13:00
PROVIDERS: PCP Nurse Practitioner Family; Visit Provider Nurse Practitioner Family
DX: N28.1 Cyst of kidney, acquired (principal); R31.29 Other microscopic hematuria; Z13.9 Encounter for screening, unspecified
CPT/HCPCS: 99213

== ENCOUNTER → 2024-12-16 13:00 | Outpatient (BNVA) | payer MEDICAID, SELFPAY | PROVIDERS: PCP Nurse Practitioner Family; Visit Provider Nurse Practitioner Family | DX: N28.1 Cyst of kidney, acquired (principal); R31.29 Other microscopic hematuria; Z13.9 Encounter for screening, unspecified | CPT/HCPCS: 81003; 99212 ==

== ENCOUNTER 2024-12-18 09:13 | Outpatient (REF) | payer MEDICAID, SELFPAY ==
[2024-12-18 16:11] LABS: Bacterial Vaginosis PCR NEGATIVE (Negative); Candida Group PCR NOT DETECTED (Not Detect); Candida glab krusei PCR NOT DETECTED (Not Detect); Trichomonas vaginalis PCR NOT DETECTED (Not Detect)
== END 2024-12-18 09:14 | disposition home or self-care (01) ==
LOC: HO.LNP 09:13
PROVIDERS: PCP Nurse Practitioner Family; Visit Provider Advanced Practice Midwife
DX: N89.8 Other specified noninflammatory disorders of vagina (principal); R10.20 Pelvic and perineal pain unspecified side; Z20.2 Contact with and (suspected) exposure to infections with a predominantly sexual mode of transmission; Z79.899 Other long term (current) drug therapy
CPT/HCPCS: 81002; 81515; 99212

== ENCOUNTER 2024-12-18 09:13 | Outpatient (AMB) | payer MEDICAID, SELFPAY ==
--- NOTE | 2024-12-18 09:57 | A.OFFVIS_ITS ---
Vital Signs 12/18/24 10:04 Height 5 ft 4 in Weight 153 lb BMI 26.3 BP 100/60 Blood Pressure Location Rt brachial Position Sitting Intake Visit Reasons: [place] Follow up Intake Note: review u/sdone on 11/25/24 Immigration Associate Required: Yes Immigration Associate Services: Immigration Associate Present Immigration Associate Name: voice box Information Interpreted: non-clinical & clinical Accompanied by: Self / Same As Patient Allergies Penicillins (PENICILLINS) Allergy (Intermediate, Verified 12/18/24 10:05) HIVES/SWELLING bupropion (From Wellbutrin) Allergy (Verified 12/18/24 10:05) hives, swelling Medication List - Last Reconciled 12/18/24 by Jovana Mittal LPN cholecalciferol (vitamin D3) 25 mcg PO QAM famotidine 40 mg PO BID galcanezumab-gnlm (Emgality) mg subcut lisinopril 20 mg PO DAILY magnesium gluconate 27 mg PO DAILY metoprolol tartrate 25 mg PO BID nortriptyline 100 mg PO BEDTIME sumatriptan succinate 100 mg PO DAILY PRN Do you need a note to return to daycare/school/sports/work: No HPI Comments Details: Patient is here today for a follow up pelvic ultrasound, history of pelvic pain. History of hysterectomy. History of ulcerative colitis. She reports external irritation and itching today. [facility] Medical History Pelvic mass Kidney anomaly, congenital Bleeding hemorrhoids Chronic abdominal pain LLQ cramping Diverticular disease of colon Clostridioides difficile diarrhea Colitis Left lower quadrant pain Tubular adenoma of colon Irritable bowel syndrome with diarrhea Sigmoid diverticulitis Acute diverticulitis Diarrhea Diverticulitis Abdominal pain Lower abdominal pain Chronic idiopathic constipation Constipation GERD (gastroesophageal reflux disease) Surgical History History of surgery History of intestinal surgery History of partial hysterectomy (~09/2006) Hx of hemorrhoidectomy (2008) Hx of colonoscopy (11/14/23) History of esophagogastroduodenoscopy (EGD) (11/14/23) Family History Father Cancer HTN (hypertension) Mother HTN (hypertension) Hyperthyroidism Migraine headache Maternal Grandmother History of breast cancer Paternal Grandmother History of breast cancer Family/Other Colon cancer Paternal Aunt Ovarian cancer Social History Household Members: Family and None Housing: Apartment Are you a primary patient care technician instructor to a significant other at home: No Do you presently have visiting nurse or other home services: No Alcohol intake: never Patient Tobacco Use Status: Never used Tobacco service: No Current occupational status: disabled Current occupational exposures/hazards: No Female Reproductive History Menstrual Age of Menarche: 7 Date of Mammogram: 03/30/24 Review of Systems Const All systems reviewed & are unremarkable except as noted in HPI and below Physical Exam Vital Signs: Last Vital Signs BP 100/60 12/18/24 10:04 BMI result Body Mass Index 26.3 Const General: cooperative, healthy appearing and no acute distress Orientation/consciousness: patient oriented x3 GI Inspection: Yes normal to inspection Palpation (GI): Soft to palpation and Other GI palpation findings present (Nontender) Rectal Exam - Female: visual inspection normal Other: Shaven vulva General: Yes bladder normal to palpation External Female Exam: normal appearance of the urethra Speculum Exam - Vagina: normal appearance of the vagina, normal palpation, normal vaginal discharge and vagina atrophic Speculum Exam - Cervix: normal appearance of the cervix and Cervix absent (Vaginal cuff no lesions or nodules) Bimanual exam- vagina & uterus: normal bimanual exam, normal palpation, bladder normal to palpation and uterus absent Bimanual Exam- Adnexa, other: normal adnexae Neuro General: patient oriented x3 Results AMB Urinalysis Dipstick UR Leukocytes Negative Last Edit by Jovana Mittal LPN on 12/18/24 10:44 UR Nitrite Negative Last Edit by Jovana Mittal LPN on 12/18/24 10:44 UR Urobilinogen 4 Last Edit by Jovana Mittal LPN on 12/18/24 10:44 UR Protein Trace Last Edit by Jovana Mittal LPN on 12/18/24 10:44 UR Ph 6.0 Last Edit by Jovana Mittal LPN on 12/18/24 10:44 UR Blood Negative Last Edit by Jovana Mittal LPN on 12/18/24 10:44 UR Specific [place] 1.030 Last Edit by Jovana Mittal LPN on 12/18/24 10:44 UR Ketone Negative Last Edit by Jovana Mittal LPN on 12/18/24 10:44 UR Bilirubin Negative Last Edit by Jovana Mittal LPN on 12/18/24 10:44 UR Glucose Negative Last Edit by Jovana Mittal LPN on 12/18/24 10:44 Results Reviewed Results Reviewed: Laboratory Last Values Urine pH (Clinic) 6.0 12/18/24 10:40 Specific [place] (Clinic) 1.030 12/18/24 10:40 Ur Protein (Clinic) Trace 12/18/24 10:40 Ur Ketones (Clinic) Negative 12/18/24 10:40 Urine Blood (Clinic) Negative 12/18/24 10:40 Urine Nitrite Negative 12/18/24 10:40 Urine Bilirubin (Clinic) Negative 12/18/24 10:40 Urobilinogen (Clinic) 4 12/18/24 10:40 Leukocyte Esterase (Clinic) Negative 12/18/24 10:40 Urine Glucose (Clinic) Negative 12/18/24 10:40 Assessment & Plan Assessment & Plan (1) Pelvic pain in female: Code(s): R10.2 - Pelvic and perineal pain Category: Medical Plan: Discussed: Ultrasound findings- IMPRESSION: Unremarkable pelvic ultrasound in a patient status post hysterectomy. Advised to follow up with her GI provider due to her pelvic discomfort and history of ulcerative colitis. No abnormal findings with computer system technician exam or scan. The patient expressed understanding and agreement with the plan of care. All of her questions and concerns were addressed to the best of my ability. (2) Vaginal irritation: Code(s): N89.8 - Other specified noninflammatory disorders of vagina Plan: BV panel obtained. Await results for final plan of care. Plan Instructions: Clean with warm water, no soaps, scented products. Avoid shaving. Benefits to Bond is a protective mechanism. Wear loose, cotton underclothes, avoid tight outer clothing. Air when possible. Await results for treatment options plan if indicated. Follow up PRN. The patient expressed understanding and agreement with the plan of care. All of her questions and concerns were addressed to the best of my ability. This note is constructed using voice recognition software. While every effort has been made to ensure accuracy, oxyacetylene cutter errors may have been included. Orders: Orders AMB Urinalysis Dipstick Today R10.2 - Pelvic and perineal pain Bacterial Vaginosis Panel Today Z11.3 - Encounter for screening for infections with a predominantly sexual mode of transmission Coding Level of Care Code Est Pt Level 3 (58837) Diagnoses Pelvic pain in female R10.2 Vaginal irritation N89.8
[2024-12-18 10:04] VITALS: BP 100/60; BMI 26.3
--- OUTSIDE RECORDS SUMMARY | 2024-12-18 10:29 | XMS_ITS | Encounter Summary ---
Author Organization [facility] Address [address] [place] [address] Care Team Providers Care Upholstery Auto Trimmer Name Role Phone Vidhya Padilla SOAP SLABBER Primary Care Provider [phone] Reason for Visit * Reason Onset Date Comments PAC Appt Request - New 07/27/2022 Encounter Details Date Type Department Care Team ([facility] Contact Info) Description 07/27/2022 Telephone [facility] [address] [place] [phone] Telephone Intake, Staff PAC Appt Request - [...] available is February, please call patient with edge roller to schedule appt. documented in this encounter Plan of Treatment Upcoming Encounters Date Type Department Care Team (Late st Contact Info) Description 01/12/2025 9:00 AM EST Appointment [facility] Neurodiagnostics [address] [place] [address] Giovany Machado MD [address] [place] [id number] Tong Shultz RT(R) 02/09/2025 9:00 AM EST Follow-Up [facility] Neurology [address] [place] [id number] Mary Maria MD [address] [place] [phone] documented as of this encounter Visit Diagnoses Not on filedocumented in this encounter Additional Health Concerns Infection Onset Date Last Indicated Resolved Time R/O C.diff 08/25/2022 08/25/2022 08/25/2022 3:19 PM EDT R/O C.diff 09/06/2022 09/06/2022 09/06/2022 12:3 1 PM EDT R/O C.diff 10/03/2022 10/03/2022 10/04/2022 4:31 AM EDT documented as of this encounter Care Teams Upholstery Auto Trimmer Relationship Specialty Start Date End Date Vidhya Padilla NP [address] [place] [phone] PCP - General Family Medicine 07/27/22 documented as of this encounter
--- OUTSIDE RECORDS SUMMARY | 2024-12-18 10:29 | XMS_ITS | Clinical Summary ---
Author Organization [facility] Address [address] [place] [address] Care Team Providers Care Performance Reporter Name Role Phone Melyssa Alonso MD Primary Care Provider [phone] Allergies Active Allergy Reactions Criticality Noted Date [...] Discontinued Procedures * Due to [place] [employer] law, this organization might not be sharing negative HIV tests. Procedure Name Priority Date/Time Associated Diagnosis Comments COMPREHENSIVE EYE EXAM 07/15/2020 from Last 3 Months or Most Recently Relevant to Health Maintenance Results * Due to [place] [employer] law, this organization might not be sharing negative HIV tests. * COMPREHENSIVE EYE EXAM (07/15/2020) [facility] VALENCIA PROCEDURE Final Result from Last 3 Months or Most Recently Relevant to Health Maintenance Insurance MEDICAID MEDICAID Care Teams Performance Reporter Relationship Specialty Start Date End Date Melyssa Alonso MD [address] [address] PCP - General Internal Medicine 07/15/20
--- OUTSIDE RECORDS SUMMARY | 2024-12-18 10:29 | XMS_ITS | Encounter Summary ---
Author Organization [facility] Address [address] [facility] [address] [place] [address] Care Team Providers Care Adjutant General Name Role Phone Vidhya Padilla Primary Care Provider [phone] Name, Les GARCIA Primary Care Provider Reason for Visit * Reason Onset Date Comments Referral 03/01/2022 Encounter Details Date Type Department Care Team (Late st Contact Info) Description 03/01/2022 Telephone [facility] MED[facility] [address] [place], [place] [phone] Vidhya Padilla FNP [address] [place], [place] [phone] Referral Social History Tobacco Use Types Packs/Day [...] 03/01/2022 2:52 PM EST Telephone call to [facility] urology in regards to pt's referral. Pt needs referral for cyst in kidney andabdominal pain per [facility]. N28.1 and R10.9 respectively. * Telephone Encounter - Nolan Carlisle - 03/01/2022 9:03 AM EST Tc from [facility] a [facility]. Pt states she received a call and she was advised to request a referral do to something in her Left Kidney. Charge Master Coordinator was attempting togather details, pt was unable to provide details. 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
--- OUTSIDE RECORDS SUMMARY | 2024-12-18 10:29 | XMS_ITS | Encounter Summary ---
Author Organization [facility] Address [address] [place] [address] Care Team Providers Care Supervisor Winding Department Name Role Phone Melyssa Alonso MD Primary Care Provider Encounter Details Date Type Department Care Team (Late st Contact Info) Description 01/10/2021 Orders Only [facility] [address] [place] [phone] Rehan Gerard, RN [address] [place] [phone] Medications Social History Tobacco Use Types Packs/Day [...] on filedocumented in this encounter Care Teams Supervisor Winding Department Relationship Specialty Start Date End Date Melyssa Alonso MD [facility] [address] [place] [address] PCP - General Internal Medicine 07/15/20 documented as of this encounter
--- OUTSIDE RECORDS SUMMARY | 2024-12-18 10:29 | XMS_ITS | Clinical Summary ---
Author Organization [facility] Address [address] [place] [address] Care Team Providers Care Utility Worker Film Processing Name Role Phone Vidhya Padilla LIBRARY ASSOCIATE Primary Care Provider [phone] Allergies Active Allergy Reactions Criticality Noted [...] Team Description 12/05/2024 10:00 AM EDT Follow-Up [facility] A [address] [place] [address] Patsy Le MD Bilateral occipital neuralgia (Primary Dx); Cervical facet joint syndrome 10/15/2024 10:03 AM EDT - 10/15/2024 11:59 PM EDT Hospital Encounter [facility] [address] [place] [address] Patsy Le MD Bilateral occipital neuralgia (Primary Dx) Discharge Disposition: Home or Self Care () 10/03/2024 Refill [facility] [address] [place] [address] Mary Maria MD 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; Dizziness; Muscle tension headache 09/30/2024 8:33 AM EDT - 09/30/2024 11:59 PM EDT Hospital Encounter [facility] Neurodiagnostics [address] [place] [address] Giovany Machado MD Georges, Patrick 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 (Primary Dx) Discharge Disposition: Home or Self Care () 09/30/2024 Orders Only [facility] [address] [place] [address] Giovany Machado MD 09/30/2024 Orders Only [facility] B [address] [place] [address] Patsy Le MD Bilateral occipital neuralgia (Primary [...] Info) Description 01/12/2025 9:00 AM EST Appointment [facility] Neurodiagnostics [address] [place] [address] Giovany Machado MD [address] [place] [address] Tong Shultz RT(R) 02/09/2025 9:00 AM EST Follow-Up [facility] [address] [place] [address] Mary Maria MD [address] [place] [address] Health Maintenance Due Date Last Done Comments [...] complete this topic Procedures * Due to [place] [employer] law, this organization might not be sharing negative HIV tests. Procedure Name Priority Date/Time Associated Diagnosis Comments [place] INJECT NERV BLCK,GREAT OCCIPTL Routine 10/15/2024 10:15 AM EDT Bilateral occipital neuralgia GLUCOSE, RANDOM Routine 07/18/2018 11:28 AM EDT Optic nerve swelling Migraine aura, persistent, intractable from Last 3 Months or Most Recently Relevant to Health Maintenance Results * Due to [place] [employer] law, this organization might not be sharing negative HIV tests. * [place] INJECT NERV BLCK,GREAT OCCIPTL (10/15/2024 10:15 AM [...] Patient's understanding of procedure matches consent: Yes [place] Protocol: Procedure consent matches procedure scheduled: Yes [...] outpatient to the ambulatory injection suite at [facility]. Vital signs were monitored before and [...] - 99 mg/dL 07/18/2018 12:01 PM EDT [facility] Blood specimen (specimen) Structure of peripheral vein / Unknown Venipuncture / Unknown 07/18/2018 11:28 AM EDT 07/18/2018 11:35 AM EDT Mary Maria MD LAB BLOOD ORDERABLES Final Resul t [facility] [address] [place] [address], [place] from Last 3 Months or Most Recently Relevant to Health Maintenance Insurance [employer] Care Teams Utility Worker Film Processing Relationship Specialty Start Date End Date Vidhya Padilla NP [address] [place] [address] PCP - General Family Medicine 07/27/22
--- OUTSIDE RECORDS SUMMARY | 2024-12-18 10:29 | XMS_ITS | Encounter Summary ---
Author Organization [facility] Address [address] [facility] [address] [place] [address] Care Team Providers Care Chain Pegger Name Role Phone Name, Les GARCIA Primary Care Provider [phone] Reason for Visit * Reason Onset Date Comments Medication Question 12/16/2024 Encounter Details Date Type Department Care Team ([facility] st Contact Info) Description 12/16/2024 Telephone [facility] [address] [place] [address] Name, MD Les [address] [place] [address] Medication Question Social History Tobacco Use Types [...] not included. TC placed to pt via [employer] shipping and receiving associate (ID#[id number]) to inform and advise of below PCP message. Advised pt PCP would like for her to stop the atorvastatin and drink plenty of fluids. Advised we will contact her tomorrow for status check to see how she is doing. Pt verbalized understanding and denies questions at this time. Message sent to [place] team nurses for status check tomorrow 12/17/24. [...] not included. TC placed to pt via [employer] shipping and receiving associate (ID#[id number]) to inform and advise of below PCP message. Connectedwith patient and explained that PCP would like for her to stop the atorvastain med first. Advised pt to stay well hydrated and drink lots of fluids. Advised we will call tomorrow to see how she is doing. Game Author disconnected from the call before hearing pt response. TC x 2 placed to pt via [employer] shipping and receiving associate (ID#[id number]). No answer, LVM to call office back [...] AM EST TC placed to pt via [employer] shipping and receiving associate (ID#[id number]) regarding request for call back regarding medicationas [...] requesting an alternative medication. Contact pt at [phone] documented in this encounter Plan of Treatment Not on file documented as of this encounter Visit Diagnoses Not on filedocumented in this encounter Additional Health Concerns Assessment Noted Time PHQ-9 Depression Total Score: 9 11/18/19 25 11:31 AM EDT documented as of this encounter Care Teams Chain Pegger Relationship Specialty Start Date End Date Name, MD Les [address] [place] [address] PCP - General Internal Medicine 10/09/23 documented as of this encounter
--- OUTSIDE RECORDS SUMMARY | 2024-12-18 10:29 | XMS_ITS | Clinical Summary ---
Author Organization [employer] Address [address] [facility] [place] [address] [address] Team Prov[address] Care Road Train Driver Name Role Phone Name, Les GARCIA Primary Care Provider [phone] Allergies Active Allergy Reactions Criticality Noted Date [...] DAY 180 tablet 3 024 2024 Discontinued Active Problems Problem Noted [...] Type Department Care Team Description 12/16/2024 Telephone [facility] [address] [place] [phone] Les Torres MD Medication Question 12/05/2024 Refill [facility] [address] [place] [address] Les Torres MD 12/04/2024 Orders Only GENERIC EXTERNAL DATA DEPARTMENT Provider, Generic External Data 12/04/2024 Results Follow-Up [facility] [address] [place] [phone] Les Torres MD Lipid Panel, Standard 11/17/2024 10:15 AM EDT Office Visit [facility] [address] [place] [phone] Les Torres MD Healthcare maintenance (Primary Dx); Encounter for vaccination; Encounter for immunization; Dietary counseling; Exercise counseling 11/17/2024 Travel 11/13/2024 Orders Only GENERIC EXTERNAL DATA DEPARTMENT Provider, Generic External Data 11/10/2024 Patient Outreach [facility] [address] [place] [address] Les Torres MD Pre-visit Planning (SDOH negative, [...] Tobacco Screening 11/17/2025 11/17/2024 Mammogram 03/10/2026 03/10/2024, 1203/2020, 01/06/2020, Additional history exists Lipid Panel 12/04/2029 [...] AM EDT) T Spot TB Negative Negative [facility] Comment:A negative test resu lt does [...] as aquantitative test. TS PANEL A 0 [facility] TS PANEL B 2 [facility] Negative Control Passed [facility] Positive Control Passed [facility] Comment:For additional infor kenji, please refer tohttp://education.Opti-Source/faq/CRS287(This link is being provided for informational/educational purposes only.)THIS TEST WAS PERFORMED AT:[employer] [id number] [place] [address]EVBHCUOIZZY HOWARD MD,PHD 12/04/2024 10:0 1 AM EDT 12/04/2024 10:01 AM EDT us Generic External Data Provider LAB BLOOD ORDERAB LES Final Result Performing Organization Address City/State/[facility] Co de Phone Number [facility] [address] [place] [phone] * (ABNORMAL) Lipid Panel, Standard (12/04/2024 10:01 AM EDT) Triglycerides 96 <150 mg/dL [facility] Comment:Desirable Triglyceri de: less than 150 mg/dLBorderline High Triglyceride 150-199 mg/dLHigh Triglyceride: 200-499 mg/dLVery High Triglyceride: greater than or equal to 5OO mg/dL Cholesterol 289(H) <200 mg/dL [facility] Comment:Desirable Cholestero l: less than 200 mg/dLBorderline High Cholesterol: 200-239 mg/dLHigh Cholesterol: greater than 239 mg/dL LDL Cholesterol Calculated 209(H) <100 mg/dL [facility] Comment:Desirable LDL: less than 100 mg/dLNear Optimal/Above Optimal LDL: 110- 129 mg/dLBorderline High LDL: 130-159 mg/dLHigh LDL: 160-189 mg/dLVery High LDL: greater than or equal to 190 mg/dL HDL Cholesterol 61 >40 mg/dL [facility] Comment:Desirable HDL: great er than 40 mg/dL Note: This HDL assay may give artificially low results in patients with liver disease. Blood Venous blood specimen / Unknown 12/04/2024 10:01 AM EDT 12/04/2024 10:01 AM EDT us Les Name LAB BLOOD ORDERABLES Final Resul t Performing Organization Address [facility] Co de Phone Number [facility] [address] [place] [phone] * US BLADDER (11/27/2024 4:01 PM EDT) Anatomical Region Laterality Modality Abdomen Ultrasound 11/27/2024 4:01 PM EDT Narrative 11/27/2024 4:57 PM EDT [address] [address] Ultrasound Report Signed Patient: Kacy Merritt MR#: [id number] 9 : 1965 Acct:[id number] Age/Sex: 59 / F ADM Date: 11/27/24 Loc: HO.US Attending Dr: Maryanne RAPP Ordering Physician: Maryanne Wells Date of Service: 11/27/24 Procedure(s): US bladder Accession Number(s): [id number] cc: Maryanne Wells; Name,Les GARCIA Reason for [...] 11/27/24 1654 DD/ 1601 TD/TT: 11/27/24 1608 Equal Employment Opportunity Officer: Procedure Note Donotuseinterpreter, Image - 11/27/2024 [place] [address] Ultrasound Report Signed Patient: Lashon MerrittR#: [id number] 9 : 1965Acct:[id number] Age/Sex: 59 / FADM Date: 11/27/24 Loc: HO.US Attending Dr: Maryanne RAPP Ordering Physician: Maryanne Wells Date of Service: 11/27/24 Procedure(s): US bladder Accession Number(s): [id number] cc: Maryanne Wells; Name,Les GARCIA Reason for [...] Garcia MD 11/27/2024 04:54 PM EDT RP Dictated By: Frandy Garcia MD Signed By: <Electronically signed by Frandy Garcia MD in OV> 11/27/24 1654 DD/ 1601 TD/TT: 11/27/24 1608 Equal Employment Opportunity Officer: us [facility] External Provider IMG US PROCEDURES Edited Result - Final * US Pelvis Transvaginal (11/25/2024 12:18 AM EDT) Anatomical Region Laterality Modality Pelvis Ultrasound 11/25/2024 12:1 8 AM EDT Narrative 11/25/2024 12:21 AM EDT [place] [address] Ultrasound Report Signed Patient: Kacy Merritt MR#: [id number] 9 : 1965 Acct:[id number] Age/Sex: 59 / F ADM Date: 11/21/24 Loc: HO.US Attending Dr: Genny White CNM Ordering Physician: Genny White CNM Date of Service: 11/21/24 Procedure(s): US pelvic and transvaginal Accession Number(s): [id number] cc: Vidhya Padilla ECOLOGIST; Genny White CNM Reason for Exam: R19.00 - Intra-abdominal and pelvic swelling, mass and lump, unspecified... CLINICAL HISTORY: R19.00 - Intra-abdominal and pelvic swelling, mass and lump, unspecified... US pelvis transabdominal and transvaginal Comparison: None provided Findings: Transabdominal scanning performed for overall anatomy. Transvaginal scanning performed for additional detail. Urinary bladder is ioav-qn-mstuwqufro distended on the transabdominal images. Uterus is [...] MD in OV> 11/25/2418 DD/ TD/TT: 11/25/2417 Equal Employment Opportunity Officer: Procedure Note Donotuseinterpreter, Image - 11/25/2024 [place] [address] Ultrasound Report Signed Patient: Meghan Merritt#: [id number] 9 : 1965Acct:[id number] Age/Sex: 59 / FADM Date: 11/21/24 Loc: HO.US Attending Dr: Genny White CNM Ordering Physician: Genny White CNM Date of Service: 11/21/24 Procedure(s): US pelvic and transvaginal Accession Number(s): [id number] cc: Vidhya Padilla ECOLOGIST; Genny White CNM Reason for Exam: R19.00 - Intra-abdominal and pelvic swelling, mass andlump, unspecified... CLINICAL HISTORY: R19.00 - Intra-abdominal and pelvic swelling, mass andlump, unspecified... US pelvis transabdominal and transvaginal Comparison: None provided Findings: Transabdominal scanning performed for overall anatomy. Transvaginal scanning performed for additional detail. Urinary bladder is qvyo-wo-fpdlkmelny distended on the transabdominal images. Uterus is [...] MD in OV> 11/25/2418 DD/ TD/TT: 11/25/2417 Equal Employment Opportunity Officer: us [facility] External Provider IMG US PROCEDURES Edited Result - Final * Hematoxylin and Eosin Stain (11/13/2024 1:11 PM EDT) 11/13/2024 1:11 PM EDT 11/13/2024 2:52 PM EDT [facility] - 11/18/2024 8:47 AM EDT ----- ------- Name: Kacy Merritt Age/Sex: 59/F : 1965 Unit#: [id number] Attend Dr: Gosia Sheehan MD Re11/13/24 Status: [facility] Location: [facility] Disch: ----- ------- SPEC : [id number] RECD: 11/13/24 STATUS: DENNIS BARKER NUM: [id number] TARA: 11/13/[address] [facility] [address]: Gosia Sheehan MD ENTERED: 11/13/24360 SP TYPE: Surgical OTHR DR: Vidhya Padilla [...] Kacy Merritt Age/Sex: 59/F : 1965 Unit#: [id number] Attend Dr: Gosia Sheehan MD Re11/13/24 Status: [facility] Location: [facility] Disch: ----- ------- SPEC : [id number] RECD: 11/13/24373 STATUS: MICHAELMagali BARKER NUM: [id number] TARA: 11/13/[address] [facility] [address]: Gosia Sheehan MD ENTERED: 11/13/24 SP TYPE: Surgical OTHR DR: Vidhya Padilla ECOLOGIST ORDERED: HE Stain/18, Gross Micro L4/6 Gross [...] microscopic examination, 3 pieces in cassette F. ([facility]) IHC S/NG Disclaimer NOTE: Unless otherwise stated, all tissue is formalin-fixed and paraffin-embedded. Some or all of the immunohistochemical tests reported herein may have been developed and their performance characteristics determined by [facility]. They have not been cleared or approved by the U.S. Food and Drug Administration (FDA). However, the FDA has determined that such clearance or approval is not necessary. This laboratory is certified under the Clinical Laboratory Improvement Amendments of 1988 (CLIA) as qualified to perform high complexity clinical laboratory testing. Copies To: Vidhya Padilla NP [address] [id number] Gosia Sheehan MD [facility] [address] [place] [address] [phone] CONTINUED ON NEXT PAGE ----- ------- Name: Kacy Merritt Age/Sex: 59/F : 1965 Unit#: [id number] Attend Dr: Gosia Sheehan MD Re11/13/24 Status: [facility] Location: [facility] Disch: ----- ------- SPEC : [id number] RECD: 11/13/24224 STATUS: DENNIS BARKER NUM: [id number] TARA: 11/13/[address] [facility] [address]: Gosia Sheehan MD ENTERED: 11/13/247261 SP TYPE: Surgical OTHR DR: Vidhya Padilla NP ORDERED: JUANIS Stain/18, Gross Micro L4/6 ----- ------- Signed (signature on file) Randy Zaman MD 11/18/24 0847 ----- ------- END OF REPORT Generic External Data Provider LAB BLOOD ORDERAB LES Final Result Performing Organization Address [facility] Co de Phone Number [facility] [address] [place] [phone] * CDiff Gene PCR (11/13/2024 1:02 PM EDT) Only the most recent of2 resultswithin the time period is included. [facility] CDiff Gene PCR NEGATIVE Negative [facility] Comment:If C. difficile stro ngly suspected despite one negativetest, a second test may be sent vs. empiric treatment forC. difficile infection. 11/13/2024 1:02 PM EDT 11/13/2024 1:12 PM EDT Generic External Data Provider LAB BODY FLUIDS A ND STOOLS ORDERABLES Final Result Performing Organization Address [facility] Co de Phone Number [facility] [address] [place] [address] [phone] * Gastrointestinal panel (11/13/2024 1:02 PM EDT) Only the most recent of2 resultswithin the time period is included. [facility] Campylobacter Not Detected Not Detect. [facility] Plesiomonas shigelloides Not Detected Not Detect. [facility] Salmonella Not Detected Not Detect. [facility] Vibrio Not Detected Not Detect. [facility] Vibrio cholerae Not Detected Not Detect. [facility] YERSINIA ENTEROCOLITICA Not Detected Not Detect. [facility] Enteroaggregative E. coli (EAEC) Not Detected Not Detect. [facility] Enteropathogenic E. coli (EPEC) Not Detected Not Detect. [facility] Enterotoxigenic E. coli (ETEC) lt/st Not Detected Not Detect. [facility] Shiga-like toxin-producing E. coli (STEC) stx1/stx2 Not Detected Not Detect. [facility] E coli O157 Not applicable Not Detect. [facility] Comment:E. coli containing t he O157 antigen are a subset ofShiga-like toxin- producing E. coli (STEC). Shigella/Enteroinvasive E. coli (EIEC) Not Detected Not Detect. [facility] Cryptosporidium Not Detected Not Detect. [facility] Cyclospora cayetanensis Not Detected Not Detect. [facility] Entamoeba histolytica Not Detected Not Detect. [facility] Giardia lamblia Not Detected Not Detect. [facility] Adenovirus F 40/41 Not Detected Not Detect. [facility] Astrovirus Not Detected Not Detect. [facility] Norovirus GI/GII Not Detected Not Detect. [facility] Rotavirus A Not Detected Not Detect. [facility] Sapovirus Not Detected Not Detect. [facility] Comment: All results must be correlated [...] assay is performed by Multiplexed PCR, utilizing aaTag Film Array. 11/13/2024 1:02 PM EDT 11/13/2024 1:12 PM EDT us Generic External Data Provider LAB MICROBIOLOGY - GENERAL ORDERABLES Final Result Performing Organization Address [facility] Co de Phone Number [facility] [address] [place] [phone] * Lactoferrin, Quantitative, Stool (11/13/2024 1:02 PM EDT) Lactoferrin, Qn, Stool <6.25 <7.25 mcg/mL [facility] Comment:The following patien t samples should be excluded from use inthe test: patients with a history of HIV and/or havehepatitis B or C, patients with a history of infectiousdiarrhea (within 6 months), and patients having had acolostomy and or ileostomy within 1 month.THIS TEST WAS PERFORMED AT:[employer] [id number] [facility] [place] [address]RIUPNSORAYA HERNANDEZ MD,PHD,KEVIN 11/13/2024 1:02 PM EDT 11/13/2024 1:12 PM EDT us Generic External Data Provider LAB BODY FLUIDS A ND STOOLS ORDERABLES Final Result Performing Organization Address [facility] Co de Phone Number [facility] [address] [place] [phone] * US Renal Complete (10/09/2024 9:52 AM EDT) Anatomical Region Laterality Modality Kidney Ultrasound 10/09/2024 9:52 AM EDT Narrative 10/09/2024 11:00 AM EDT [address] [address] Ultrasound Report Signed Patient: Kacy Merritt MR#: [id number] 9 : 1965 Acct:[id number] Age/Sex: 59 / F ADM Date: 10/09/24 Loc: HO.US Attending Dr: Maryanne RAPP Ordering Physician: Maryanne Wells Date of Service: 10/09/24 Procedure(s): US renal BI Accession Number(s): [id number] cc: Vidhya Padilla ECOLOGIST; Maryanne Wells Reason for Exam: R31.29 - [...] 10/09/24 1057 DD/ 0952 TD/TT: 10/09/24 0959 Equal Employment Opportunity Officer: Procedure Note Donotuseinterpreter, Image - 10/09/[address] [address] Ultrasound Report Signed Patient: Meghan Merritt#: [id number] 9 : 1965Acct:[id number] Age/Sex: 59 / FADM Date: 10/09/24 Loc: HO.US Attending Dr: Maryanne RAPP Ordering Physician: Maryanne Wells Date of Service: 10/09/24 Procedure(s): US renal BI Accession Number(s): [id number] cc: Vidhya Padilla ECOLOGIST; Maryanne Wells Reason for Exam: R31.29 - [...] 10/09/24 1057 DD/ 0952 TD/TT: 10/09/24 0959 Equal Employment Opportunity Officer: us [facility] External Provider IMG US PROCEDURES Final Result * (ABNORMAL) Urinalysis, Complete, with Reflex to Culture (10/02/2024 3:25 PM EDT) Color Urine Yellow [facility] Appearance Urine Clear [facility] PH 5.0 5.0 - 9.0 [facility] Glucose Urine UA Negative Negative mg/dL [facility] Urine Blood Trace(A) Negative [facility] Specific [place] - Urine 1.025 1.005 - 1.025 [facility] Urine Protein Trace Neg-Trace mg/dL [facility] Urine Ketones Trace Negative mg/dL [facility] Nitrite Urine Negative Negative [facility] Leukocyte Esterase Urine Negative Negative [facility] RBC Urine 0-2 0 - 2 /HPF [facility] Urine WBC 0-5 0 - 5 /HPF [facility] Urine Squamous Epithelial Cell 3-5 0 - 2 /HPF [facility] Urine Bacteria 1+ None Seen [facility] Hyaline Casts, Urine 3-5 0 - 2 /LPF [facility] 10/02/2024 3:25 PM EDT 10/02/2024 3:28 PM EDT Narrative [facility] - 10/02/2024 3:46 PM EDT Urine, Clean Catch us Generic External Data Provider LAB URINE ORDERAB LES Final Result [facility] [address] [place] [phone] * CT Abdomen Pelvis w/ Contrast (10/02/2024 1:40 PM EDT) Anatomical Region Laterality Modality Body, Pelvis, Abdomen Computed T omography 10/02/2024 1:40 PM EDT Narrative 10/02/2024 3:19 PM EDT [address] [address] [address] Scan Report Signed Patient: Kacy Merritt MR#: [id number] 9 : 1965 Acct:[id number] Age/Sex: 59 / F ADM Date: 10/02/24 Loc: HO.ED Attending Dr: Ordering Physician: Nell Reyes DO Date of Service: 10/02/24 Procedure(s): CT abdomen pelvis w IV con Accession Number(s): [id number] cc: Vidhya Padilla ECOLOGIST; Nell Reyes DO Report Number: [id number]: Total DLP = 624.00 mGy-cm EXAMINATION: CT [...] 10/02/24 1516 DD/ 1340 TD/TT: 10/02/24 1505 Equal Employment Opportunity Officer: Procedure Note Donotuseinterpreter, Image - 10/02/[address] [place] [address] [address] Scan Report Signed Patient: Meghan Merritt#: [id number] 9 : 1965Acct:[id number] Age/Sex: 59 / FADM Date: 10/02/24 Loc: HO.ED Attending Dr: Ordering Physician: Nell Reyes DO Date of Service: 10/02/24 Procedure(s): CT abdomen pelvis w IV con Accession Number(s): [id number] cc: Vidhya Padilla ECOLOGIST; Nell Reyes DO Report Number: [id number]: Total DLP = 624.00 mGy-cm EXAMINATION: CT [...] 10/02/24 1516 DD/ 1340 TD/TT: 10/02/24 1505 Equal Employment Opportunity Officer: [facility] External Provider IMG CT PROCEDURES Final Result * (ABNORMAL) CBC auto differential (10/02/2024 10:03 AM EDT) White Blood Count 6.7 4.8 - 10.8 X10*3/uL [facility] Red Blood Count 4.52 4.20 - 5.50 X10*6/uL [facility] Hemoglobin 12.1 12.0 - 16.0 g/dl [facility] Hematocrit 38.2 37.0 - 47.0 % [facility] Mean Corpuscular Volume 84.5 80.0 - 98.0 fL [facility] Mean Corpuscular Hemoglobin 26.8(L) 27.0 - 33.0 pg [facility] Mean Corpuscular HGB Conc 31.7 31.0 - 35.0 g/dl [facility] Red Cell Distribution Width 13.7 11.0 - 16.0 % [facility] Platelet Count 324 160 - 400 X10*3/uL [facility] Mean Platelet Volume 9.3(L) 9.4 - 12.3 fL [facility] Neutrophils Percent Auto 47.6 45 - 73 % [facility] Imm Gran Pct Auto 0.1 0.0 - 0.4 % [facility] Lymphocytes Percent Auto 42.4(H) 20 - 40 % [facility] Monocytes Percent Auto 8.0 2 - 11 % [facility] Eosinophils Percent Auto 1.3 0 - 4 % [facility] Basophils Percent Auto 0.6 0 - 2 % [facility] NRBC Pct Auto 0.0 0.0 - 0.2 /100WBC [facility] Neutrophils Absolute Auto 3.2 2.0 - 8.3 x10*3/uL [facility] Imm Gran Abs Auto 0.01 0.00 - 0.03 X10*3/uL [facility] Lymphocytes Absolute Auto 2.9 1.2 - 4.9 X10*3/uL [facility] Monocytes Absolute Auto 0.5 0.1 - 1.2 X10*3/uL [facility] Eosinophils Absolute Auto 0.1 0.0 - 0.4 X10*3/uL [facility] Basophils Absolute Auto 0.0 0.0 - 0.2 X10*3/uL [facility] NRBC Abs Auto 0.000 0.0 - 0.012 X10*3/uL [facility] 10/02/2024 10:0 3 AM EDT 10/02/2024 10:06 AM EDT Generic External Data Provider LAB BLOOD ORDERAB LES Final Result Performing Organization Address [facility] Co de Phone Number [facility] [address] [place] [phone] * Magnesium (10/02/2024 10:03 AM EDT) Magnesium 2.2 1.6 - 2.6 mg/dL [facility] 10/02/2024 10:0 3 AM EDT 10/02/2024 10:06 AM EDT Generic External Data Provider LAB BLOOD ORDERAB LES Final Result Performing Organization Address [facility] Co de Phone Number [facility] [address] [place] [phone] * Lipase (10/02/2024 10:03 AM EDT) Lipase 39 8 - 78 U/L [facility] 10/02/2024 10:0 3 AM EDT 10/02/2024 10:06 AM EDT Generic External Data Provider LAB BLOOD ORDERAB LES Final Result Performing Organization Address [facility] Co de Phone Number [facility] [address] [place] [phone] * Hepatic Function Panel (10/02/2024 10:03 AM EDT) Pathologist [facility] Bilirubin, Total 0.3 0.0 - 1.0 mg/dL [facility] Bilirubin, Direct 0.1 0.0 - 0.5 mg/dL [facility] Aspartate Amino Transferase 22 5 - 31 U/L [facility] Alanine Aminotransferase 22 0 - 31 U/L [facility] Total Protein 7.6 6.5 - 8.0 g/dL [facility] Albumin Level 4.6 3.5 - 5.0 g/dL [facility] Alkaline Phosphatase 70 39 - 117 U/L [facility] 10/02/2024 10:0 3 AM EDT 10/02/2024 10:06 AM EDT Generic External Data Provider LAB BLOOD ORDERAB LES Final Result Performing Organization Address [facility] de Phone Number [facility] [address] [place] [phone] * (ABNORMAL) Basic Metabolic Panel (10/02/2024 10:03 AM EDT) Sodium 138 135 - 145 mmol/L [facility] Potassium 4.8 3.3 - 5.1 mmol/L [facility] Chloride 105 96 - 108 mmol/L [facility] Carbon Dioxide 28 22 - 29 mmol/L [facility] Anion Gap 10(L) 12 - 20 [facility] Urea Nitrogen (BUN) 18(H) 9 - 16 mg/dL [facility] Creatinine, Serum 0.85 0.5 - 1.4 mg/dL [facility] Creatinine Clr Calc Pharmacy 69.5 [facility] Comment:Provided height and weight: 162.56 cm,74.5 kg.eGFR (calculated from the MDRD study equation) and eCrCl(calculated from the Cockcroft-Gault equation) are based ondifferent parameters and may not yield comparable results.If eCrCl result is absurd, please check patient'sheight/weight. Estimated Glomerular Filt Rate >60 [facility] Comment:Chronic Kidney Disea se: Estimated GFR < 60 mL/min/1.70e8Pdlpea Kidney Disease: Estimated GFR < 15 mL/min/1.73m2 Glucose 99 60 - 115 mg/dL [facility] Calcium 9.4 8.4 - 10.2 mg/dL [facility] 10/02/2024 10:0 3 AM EDT 10/02/2024 10:06 AM EDT us Generic External Data Provider LAB BLOOD ORDERAB LES Final Result [facility] [address] [place] [phone] * Bacterial Vaginosis (10/02/2024 8:16 AM EDT) TRICHOMONAS VAGINALIS DETECTION BY PCR NOT DETECTED Not Detect [facility] BACTERIAL VAGINOSIS DETECTION BY PCR NEGATIVE Negative [facility] Comment:The BV organism targ ets of [...] DETECTION BY PCR NOT DETECTED Not Detect [facility] Heather glab krusei PCR NOT DETECTED Not Detect [facility] 10/02/2024 8:16 AM EDT 10/02/2024 2:10 PM EDT Generic External Data Provider LAB MICROBIOLOGY - GENERAL ORDERABLES Final Result Performing Organization Address [facility] Co de Phone Number [facility] [address] [place] [phone] * Culture, Urine, Routine (10/02/2024 8:16 AM EDT) Urine Urine specimen obtained by clean catch procedure / Unknown 10/02/2024 8:16 AM EDT 10/02/2024 2:10 PM EDT Comment:UACC Narrative [facility] - 10/03/2024 9:10 AM EDT Urine Culture No growth. Specimen Source: Urine clean catch Generic External Data Provider LAB MICROBIOLOGY - GENERAL ORDERABLES Final Result Performing Organization Address [facility] Co de Phone Number [facility] [address] [place] [phone] * BI Mammogram Screening Tomosynthesis Bilateral (03/10/2024 12:48 PM EST) Anatomical Region Laterality Modality Breast Bilateral Mammography 03/10/2024 12:4 8 PM EST Narrative 03/16/2024 5:47 PM EST [facility] [address] [place] [address] Mammography Report Signed Patient: Kacy Merritt MR#: [id number] 9 : 1965 Acct:[id number] Age/Sex: 58 / F ADM Date: 03/10/24 Loc: HOPeteMAMMO Attending Dr: Vidhya Padilla NP Ordering Physician: Vidhya Padilla NP Results: 1Negativ e Date of Service: 03/10/24 Follow Up: 1 Year From Orig inal Mammogram Procedure(s): MM tomosynthesis screening BI Accession Number(s): [id number] cc: Vidhya Padilla NP EXAMINATION: MM SCREENING [...] 03/16/24 1744 DD/ 1248 TD/TT: 03/10/24 1308 Equal Employment Opportunity Officer: Procedure Note Donotuseinterpreter, Image - 03/16/2024 [facility] [address] [place], [place] [address] Mammography Report Signed Patient: Meghan Merritt#: [id number] 9 : 1965Acct:[id number] Age/Sex: 58 / FADM Date: 03/10/24 Loc: HO.MAMMO Attending Dr: Vidhya Padilla ECOLOGIST Ordering Physician: Vidhya Padilla NPResults: 1Negativ e Date of Service: 03/10/24Follow Up: 1 Year From Orig inal Mammogram Procedure(s): MM tomosynthesis screening BI Accession Number(s): [id number] cc: Vidhya Padilla NP EXAMINATION: MM SCREENING [...] 03/16/24 1744 DD/ 1248 TD/TT: 03/10/24 1308 Equal Employment Opportunity Officer: Vidhya Padilla NON CDL DRIVER IMG BI PROCEDURES Edited Result - Final * Hepatitis Panel, General (03/14/2023 10:20 AM EST) Hepatitis A IgM Nonreactive Nonreactive [facility] Comment:IgM antibodies to QUEZADA V not detected; does not exclude earlyacute or recovered HAV infection. ~Hepatitis B Surface Antibody NONREACTIVE Nonreactive [facility] Comment:Nonreactive: < 8.00 mIU/mL Hepatitis B Core Antibody Nonreactive Nonreactive [facility] Hepatitis C Antibody Nonreactive Nonreactive [facility] Comment:Antibodies to HCV no t detected; does not exclude early acuteHCV infection. Hepatitis B Surface Ag Negative Negative [facility] 03/14/2023 10:2 0 AM EST 03/14/2023 10:26 AM EST Generic External Data Provider LAB BLOOD ORDERAB LES Final Result [facility] [address] [place] [phone] * Hm Colonoscopy (05/10/2022 8:39 AM EDT) Colonoscopy Normal Normal Narrative Shanice Perez - 05/10/2022 8:39 AM EDT Recommended 3 year follow up [place] [place] Historical Provider HEALTH MAINTENANCE Edited Result - Final from Last 3 Months or Most Recently Relevant to Health Maintenance Insurance Care Teams Road Train Driver Relationship Specialty Start Date End Date Name, MD Les [address] [place], [place] PCP - General Internal Medicine 10/09/23
--- OUTSIDE RECORDS SUMMARY | 2024-12-18 10:29 | XMS_ITS | Encounter Summary ---
Author Organization [facility] [employer] Address [address] [place] [address] [address] [place] [address] Care Team Providers Care Director Television News Name Role Phone Vidhya Padilla Primary Care Provider [phone] Name, Les GARCIA Primary Care Provider [phone] Encounter Details Date Type Department Care Team (Late st Contact Info) Description 07/20/2022 Abstract [facility] MEDICINE [address] [place] [address] Vidhya Padilla FNP [address] [place], [place] [phone] Social History Tobacco Use Types Packs/Day Years [...] AM EDT Recommended 3 [place] [place] Historical Provider HEALTH MAINTENANCE Edited Result - Final documented in this encounter Visit Diagnoses Not on filedocumented in this encounter Additional Health Concerns Assessment Noted Time PHQ-9 Depression Total Score: 18 023 9:14 AM EDT documented as of this encounter Care Teams Director Television News Relationship Specialty Start Date End Date Vidhya Padilla FNP [address] [place] [address] PCP - General Family Medicine 02/07/22 10/08/23 Name, MD Les [address] [place] [address] PCP - General Internal Medicine 10/09/23 documented as of this encounter
--- OUTSIDE RECORDS SUMMARY | 2024-12-18 10:29 | XMS_ITS | Encounter Summary ---
Author Organization [facility] Address [address] [place] [address] Care Team Providers Care Research Coordinator Name Role Phone Vidhya Padilla NP Primary Care Provider [phone] Encounter Details Date Type Department Care Team (Late Contact Info) Description 11/08/2020 Orders Only [facility] [address] [place] [address] Santy Madison MD [address] [place] [phone] Social History Tobacco Use Types Packs/Day Years [...] Info) Description 01/12/2025 9:00 AM EST Appointment [facility] Neurodiagnostics [address] [place] [address] Giovany Machado MD [address] [place], [place] [phone] Tong Shultz RT(R) 02/09/2025 9:00 AM EST Follow-Up [facility] Neurology [address] [place] [phone] Mary Maria MD [address] [place] [phone] documented as of this encounter Visit Diagnoses Not on filedocumented in this encounter Additional Health Concerns Infection Onset Date Last Indicated Resolved Time R/O C.diff 08/25/2022 08/25/2022 08/25/2022 3:19 PM EDT R/O C.diff 09/06/2022 09/06/2022 09/06/2022 12:3 1 PM EDT R/O C.diff 10/03/2022 10/03/2022 10/04/2022 4:31 AM EDT documented as of this encounter Care Teams Research Coordinator Relationship Specialty Start Date End Date Vidhya Padilla NP [address] [place] [address] PCP - General Family Medicine 07/27/22 documented as of this encounter
--- OUTSIDE RECORDS SUMMARY | 2024-12-18 10:29 | XMS_ITS | Encounter Summary ---
Author Organization [employer] Address [address] [place] [address] [address] [place] [address] Care Team Providers Care Licensed Mental Health Counselor Name Role Phone Vidhya Padilla Primary Care Provider [phone] Name, Les GARCIA Primary Care Provider [phone] Encounter Details Date Type Department Care Team (Late st Contact Info) Description 03/21/2022 Orders Only [facility] MEDICINE [address] [place] [address] Vidhya Padilla FNP [address] [place], [place] [phone] Sigmoid diverticulitis (Primary Dx) Social History Tobacco [...] hemorrhage) documented in this encounter Care Teams Licensed Mental Health Counselor Relationship Specialty Start Date End Date Vidhya Padilla FNP [address] [place] [address] PCP - General Family Medicine 02/07/22 10/08/23 Name, MD Les [address] [place] [address] PCP - General Internal Medicine 10/09/23 documented as of this encounter
--- OUTSIDE RECORDS SUMMARY | 2024-12-18 10:29 | XMS_ITS | Encounter Summary ---
Author Organization [employer] Address [address] [place] [address] [address] [place] [address] Care Team Providers Care Draughtsman Name Role Phone Vidhya Padilla Primary Care Provider Name, Les GARCIA Primary Care Provider [phone] Reason for Visit * Reason Comments Med Change Request Encounter Details Date Type Department Care Team ([facility] st Contact Info) Description 08/02/2022 Refill [facility] MEDICINE [address] [place] [address] Vidhya Padilla FNP [address] [place] [address] Social History Tobacco Use Types Packs/Day Years [...] documented as of this encounter Care Teams Draughtsman Relationship Specialty Start Date End Date Vidhya Padilla FNP [address] [place] [address] PCP - General Family Medicine 02/07/22 10/08/23 Name, MD Les [address] [place] [address] PCP - General Internal Medicine 10/09/23 documented as of this encounter
--- OUTSIDE RECORDS SUMMARY | 2024-12-18 10:29 | XMS_ITS | Encounter Summary ---
Author Organization [employer] Address [address] [place] [address] [address] [place] [address] Care Team Providers Care Principal Hardware Architect Name Role Phone Claribel Grissom MD Primary Care Provider Vidhya Parker Primary Care Provider [phone] Les Torres MD Primary Care Provider [phone] Encounter Details Date Type Department Care Team (Late st Contact Info) Description 01/25/2022 Telephone [facility] MEDICINE [address] [place], [place] [phone] Claribel Grissom MD Social History Tobacco Use [...] on filedocumented in this encounter Care Teams Principal Hardware Architect Relationship Specialty Start Date End Date Claribel Grissom MD PCP - General Family Medicine 12/09/18 02/06/22 Vidhya Padilla FNP [address] [place] [address] PCP - General Family Medicine 02/07/22 10/08/23 Name, MD Les [address] [place] [address] PCP - General Internal Medicine 10/09/23 documented as of this encounter
== END 2024-12-18 14:32 | disposition home or self-care (01) ==
LOC: HO.HWS 09:14
PROVIDERS: PCP Nurse Practitioner Family; Visit Provider Advanced Practice Midwife
DX: R10.20 Pelvic and perineal pain unspecified side (principal); N89.8 Other specified noninflammatory disorders of vagina
CPT/HCPCS: 99213

== ENCOUNTER 2025-01-13 10:59 | Outpatient (REF) | payer MEDICAID, SELFPAY ==
[2025-01-13 11:18] LABS: MANUAL DIFF FLAG NO
[2025-01-13 11:40] LABS: Hematocrit 40.1 % (37.0-47.0); Hemoglobin 12.7 g/dl (12.0-16.0); Imm Gran Abs Auto 0.02 X10*3/uL (0.00-0.03); Imm Gran Pct Auto 0.3 % (0.0-0.4); Lymphocytes Absolute Auto 3.7 X10*3/uL (1.2-4.9); Mean Corpuscular HGB Conc 31.7 g/dl (31.0-35.0); Mean Corpuscular Hemoglobin 27.0 pg (27.0-33.0); Mean Corpuscular Volume 85.1 fL (80.0-98.0); NRBC Abs Auto 0.000 X10*3/uL (0.0-0.012); NRBC Pct Auto 0.0 /100WBC (0.0-0.2); Platelet Count 351 X10*3/uL (160-400); Red Blood Count 4.71 X10*6/uL (4.20-5.50); White Blood Count 7.6 X10*3/uL (4.8-10.8)
[2025-01-13 12:27] LABS: Alanine Aminotransferase 16 U/L (0-31); Albumin Level 4.7 g/dL (3.5-5.0); Alkaline Phosphatase 68 U/L (39-117); Anion Gap 10 (12-20); Aspartate Amino Transferase 20 U/L (5-31); Blood Urea Nitrogen 57 mg/dL (9-16); Calcium 9.5 mg/dL (8.4-10.2); Carbon Dioxide 22 mmol/L (22-29); Chloride 109 mmol/L (96-108); Estimated Glomerular Filt Rate 46; Potassium 4.7 mmol/L (3.3-5.1); Sodium 136 mmol/L (135-145); Total Protein 7.6 g/dL (6.5-8.0)
[2025-01-13 12:34] LABS: Appearance Urine Cloudy; Glucose Urine UA Negative (Negative); PH 5.0 (5.0-9.0); Specific Gravity - Urine 1.020 (1.005-1.025)
[2025-01-13 12:45] LABS: Ferritin 64 ng/mL (10-250)
== END 2025-01-13 11:00 ==
LOC: HO.LAB 10:59
PROVIDERS: PCP Internal Medicine Geriatric Medicine; Visit Provider Internal Medicine Gastroenterology
DX: K52.9 Noninfective gastroenteritis and colitis, unspecified (principal); K75.81 Nonalcoholic steatohepatitis (NASH); R30.0 Dysuria
CPT/HCPCS: 36415; 80053; 81003; 82728; 85025; 86140

== ENCOUNTER 2025-01-15 12:29 | Outpatient (REF) | payer MEDICAID, SELFPAY ==
[2025-01-15 15:35] LABS: E. coli EAEC Not Detected (Not Detect.); E. coli EPEC Not Detected (Not Detect.); E. coli ETEC Not Detected (Not Detect.); E. coli STEC Not Detected (Not Detect.); Shigella sp./EIEC Not Detected (Not Detect.)
== END 2025-01-15 12:30 ==
LOC: HO.LNP 12:29
PROVIDERS: Visit Provider Internal Medicine Gastroenterology
DX: K51.50 Left sided colitis without complications (principal); K52.9 Noninfective gastroenteritis and colitis, unspecified
CPT/HCPCS: 83631; 87507